=== PATIENT | male | born 1975 | race Caucasian/White ===

== ENCOUNTER 2022-12-06 13:07 | Emergency (ER) | payer MEDICARE, MEDICAID, SELFPAY ==
[2022-12-06 13:09] VITALS: BP 130/94; PULSE 95; RESP 16; TEMP 36.3; O2SAT 98; BMI 15.5
--- NOTE | 2022-12-06 13:22 | EX.ED.DYSGE1 ---
HPI History of Present Illness Chief Complaint: Mental Health Detail of Chief Complaint: Increased agitation Informant: family Onset/Context/Timing Onset: Days Context: Sudden Onset Timing: Intermittent Quality: Patient seen more, stomping feet Location: Not at a couple Current Severity: Gone Maximum Severity: Moderate Worsened by: Unknown Relieved by: Unknown Associated Symptoms Associated Symptoms: Increased urination Narrative Narrative: Patient is a 55-year-old male who lives with his mother who was guardian until her September of this year. Sister is in the process of obtaining guardianship. After mother's he was with her brother. He is no longer able to care for him since he has significant medical issues. Patient has history of autism and schizophrenia. Patient presently resides with sister who is obtaining guardianship through the court system. She states she will not have guardianship until January 01. She did show me the paperwork. He has gained 14 pounds since living with her. She is concerned because she stomping his feet more and has had increased pacing. He also has been urinating more. There is been no documented fever. Per sister he has not had a cough. There is no vomiting or diarrhea. She has not noted blood in his urine. Prior similar symptoms: No Recent Illness/Hospitalization: No PFSH PFS Medical History (Updated 12/06/22 @ 14:[address] Mookie Guo MD) Autism GERD (gastroesophageal reflux disease) Schizophrenia Home Medications cholecalciferol (vitamin D3) 25 mcg (1,000 unit) capsule 25 mcg PO DAILY 12/06/22 [History Last Taken Unknown] fluticasone propionate 50 mcg/actuation nasal spray,suspension intranasal 12/06/22 [History Last Taken Unknown] loratadine 10 mg chewable tablet (Claritin) 10 mg PO DAILY 12/06/22 [History Last Taken Unknown] olanzapine 5 mg disintegrating tablet 5 mg PO QHS #30 tabs 12/06/22 [Rx Last Taken Unknown] olanzapine 5 mg disintegrating tablet mg 12/06/22 [History Last Taken 12/06/22] omeprazole 40 mg capsule,delayed release 40 mg PO DAILY #30 caps 12/06/22 [Rx Last Taken Unknown] Allergy/AdvReac Type Severity Reaction Status Date / Time No Known Allergies Allergy Verified 12/06/22 13:09 Family History (Updated 12/06/22 @ 13:43 by Germania Brownlee) Mother Lung cancer Heart disease Father Lung cancer Social History (Updated 12/06/22 @ 13:[address] Mookie Guo MD) household members: family Smoking Status: Never smoker ROS ROS ED Review of Systems ROS Unobtainable: due to mental condition, due to mental status and other Details: What is documented in HPI narrative is all that I am able to obtain from the sister. EXAM Physical Exam Const Vital Signs: 12/06/22 13:09 Temperature 97.4 F L Temperature Source Temporal Pulse Rate 95 Respiratory Rate 16 Blood Pressure 130/94 H Blood Pressure Mean 106 Pulse Ox 98 Oxygen Delivery Method Room Air Positive well nourished and well developed; Negative for cachectic, contractures or unkempt General Appearance ED: well developed and NAD; Negative for unkempt, cachectic, contractures, cyanotic or diaphoretic Nutritional Appearance: Negative for cachectic HEENT Reports moist mucous membranes HEENT Narrative: There is an abrasion noted to bridge of the nose. Ears are normal. Nares patent. Poor dentition. Posterior pharynx remark. Eyes PERRL and EOMs intact bilaterally General Eye ED: Negative for pale conjunctiva or scleral icterus Neck no lymphadenopathy, supple and no JVD Neck Narrative: Trachea is midline. Chest Wall inspection of chest normal and palpation of chest normal Resp normal respiratory effort and clear to auscultation bilaterally Cardio regular rate, regular rhythm, S1 normal heart sound, S2 normal heart sound and no murmurs GI normal to inspection, nondistended, normoactive bowel sounds, non-tender, non-distended and no masses; Negative for hepatosplenomegaly Palpation: soft Extremity normal to inspection General Extremety ED: Negative for edema or tenderness General Extremity: Negative for edema Neuro Neuro Narrative: Patient says yeah to all questions asked. He is playing with small stuffed animals. Psych Psych Narrative: He is essentially nonverbal. Appearance: Negative for unkempt Skin no rashes or lesions noted and skin turgor normal General Skin Exam: Negative for jaundice MDM MDM MDM Narrative Medical decision making narrative: Case management was consulted. Will obtain blood work and urine to assess for metabolic or infectious cause of his increased agitation. History & Record Review Additional record(s) reviewed:: No prior records Lab Data Attestation: I reviewed the patient's lab results. Lab results narrative: Basic metabolic panel is unremarkable. Glucose is slight elevated 150 with an 2 and. UA is normal. CBC is unremarkable. Labs: Laboratory Results - last 24 hr 12/06/22 12/06/22 12/06/22 13:42 13:42 13:55 WBC Cancelled Corrected WBC Cancelled RBC Cancelled Hgb Cancelled Hct Cancelled MCV Cancelled MCH Cancelled MCHC Cancelled RDW Std Deviation Cancelled RDW Coeff of Dc Cancelled Plt Count Cancelled MPV Cancelled Immature Gran % (Auto) Cancelled Neut % (Auto) Cancelled Lymph % (Auto) Cancelled [place] % (Auto) Cancelled Eos % (Auto) Cancelled Baso % (Auto) Cancelled Absolute Neuts (auto) Cancelled Absolute Lymphs (auto) Cancelled Total Counted Cancelled Neutrophils % (Manual) Cancelled Band Neutrophils % Cancelled Lymphocytes % (Manual) Cancelled Monocytes % (Manual) Cancelled Eosinophils % (Manual) Cancelled Basophils % (Manual) Cancelled Metamyelocytes % Cancelled Myelocytes % Cancelled Promyelocytes % Cancelled Blast Cells % Cancelled Plasma Cell % (Manual) Cancelled Other Cells % Cancelled Nucleated RBC % Cancelled Nucleated RBCs/100 WBC Cancelled Differential Comment Cancelled Diff Path Review Cancelled Hypersegmented Neuts Cancelled Atypical Lymphocytes Cancelled Reactive Lymphocytes Cancelled Smudge Cells Cancelled Toxic Granulation Cancelled Toxic Vacuolation Cancelled Dohle Bodies Cancelled Sandro Rods Cancelled Platelet Estimate Cancelled Plt Morphology Comment Cancelled RBC Morphology Cancelled Cancelled Polychromasia Cancelled Hypochromasia Cancelled Poikilocytosis Cancelled Basophilic Stippling Cancelled Anisocytosis Cancelled Microcytosis Cancelled Macrocytosis Cancelled Spherocytes Cancelled Sickle Cells Cancelled Target Cells Cancelled Tear Drop Cells Cancelled Ovalocytes Cancelled Stomatocytes Cancelled [place] Bodies Cancelled Paulie Cells Cancelled Bite Cells Cancelled Crenated Cell Cancelled Acanthocytes (Spur) Cancelled Rouleaux Cancelled Schistocytes Cancelled Sodium 138 Potassium 4.5 Chloride 106 Carbon Dioxide 27.0 Anion Gap 5 BUN 13 Creatinine 0.87 Estim Creat Clear Calc 79.84 Est GFR (MDRD) Af Amer 121 Est GFR (MDRD) Non-Af 100 BUN/Creatinine Ratio 15.0 Glucose 115 H Calcium 9.3 Urine Color Yellow Urine Clarity Clear Urine pH 7.0 Ur Specific [place] 1.010 Urine Protein Negative Urine Glucose (UA) Normal Urine Ketones Negative Urine Occult Blood Negative Urine Nitrite Negative Urine Bilirubin Negative Urine Urobilinogen Normal Ur Leukocyte Esterase Negative Urine RBC 0 SEEN Urine WBC 0 SEEN Ur Squamous Epith Cells 0 SEEN Urine Bacteria 0 SEEN Urine Mucus 0 SEEN 12/06/22 14:05 WBC 6.7 Corrected WBC RBC 4.83 Hgb 13.6 Hct 43.6 MCV 90.3 MCH 28.2 MCHC 31.2 L RDW Std Deviation 45.0 H RDW Coeff of Dc 13.6 Plt Count 188 MPV 11.4 Immature Gran % (Auto) 0.100 Neut % (Auto) 66.5 Lymph % (Auto) 23.7 Motley % (Auto) 7.8 Eos % (Auto) 1.5 Baso % (Auto) 0.4 Absolute Neuts (auto) 4.4 Absolute Lymphs (auto) 1.58 Total Counted Neutrophils % (Manual) Band Neutrophils % Lymphocytes % (Manual) Monocytes % (Manual) Eosinophils % (Manual) Basophils % (Manual) Metamyelocytes % Myelocytes % Promyelocytes % Blast Cells % Plasma Cell % (Manual) Other Cells % Nucleated RBC % 0 Nucleated RBCs/100 WBC Differential Comment Diff Path Review Hypersegmented Neuts Atypical Lymphocytes Reactive Lymphocytes Smudge Cells Toxic Granulation Toxic Vacuolation Dohle Bodies Sandro Rods Platelet Estimate Plt Morphology Comment RBC Morphology Polychromasia Hypochromasia Poikilocytosis Basophilic Stippling Anisocytosis Microcytosis Macrocytosis Spherocytes Sickle Cells Target Cells Tear Drop Cells Ovalocytes Stomatocytes [place] Bodies [place] Cells Bite Cells Crenated Cell Acanthocytes (Spur) Rouleaux Schistocytes Sodium Potassium Chloride Carbon Dioxide Anion Gap BUN Creatinine Estim Creat Clear Calc Est GFR (MDRD) Af Amer Est GFR (MDRD) Non-Af BUN/Creatinine Ratio Glucose Calcium Urine Color Urine Clarity Urine pH Ur Specific [place] Urine Protein Urine Glucose (UA) Urine Ketones Urine Occult Blood Urine Nitrite Urine Bilirubin Urine Urobilinogen Ur Leukocyte Esterase Urine RBC Urine WBC Ur Squamous Epith Cells Urine Bacteria Urine Mucus Management Discussion w/another healthcare provider: household worker/Case management (Case management was informed there is no medical reason for admission. Sister was given information on resources. His prescriptions were refilled.) Discharge Plan Triage Chief Complaint: Mental Health ED Provider: Mookie Guo Dx/Rx/DC Orders Clinical Impression: Change in behavior, Prescription refill, Autism, Schizophrenia Instructions: ED Symptoms With Uncertain Cause Prescriptions: New olanzapine 5 mg tablet,disintegrating 5 mg PO QHS Qty: 30 1RF omeprazole 40 mg capsule,delayed release(DR/EC) 40 mg PO DAILY Qty: 30 1RF No Action fluticasone propionate 50 mcg/actuation spray,suspension INTRANASAL Patient Comments: USE 1 (ONE) SPRAY IN EACH NOSTRIL DAILY DIRECTED olanzapine 5 mg tablet,disintegrating Patient Comments: Take 1 tablet (5 mg) by mouth once every day. cholecalciferol (vitamin D3) 25 mcg (1,000 unit) capsule 25 mcg PO DAILY Claritin 10 mg tablet,chewable 10 mg PO DAILY Primary Care Provider: Carly Ramachandran Referrals: Counseling,Center [Group of Physicians] - 1-2 Weeks NOT,DEFINED [Non-Staff] - Disposition Disposition: Home, Self Care
--- NOTE | 2022-12-06 13:57 | NURSING ---
PER TANI, PURPLE TOP NEEDS REDRAWN
[2022-12-06 13:59] LABS: Bacteria 0 SEEN /hpf (None Seen); Mucous, Urine 0 SEEN /hpf (<or=2+); Red Blood Cells-Urine 0 SEEN /hpf (0-5); Squamous Epithelial Cells - UA 0 SEEN /hpf (0-5); White Blood Cells 0 SEEN /hpf (0-5)
[2022-12-06 14:02] LABS: Color, Urine Yellow (Yellow); Glucose, Dipstick Normal (Normal); Ketone-Dipstick Negative (Negative); Leukocyte Esterase-Dipstick Negative /ul (Negative); Nitrite-Dipstick Negative (Negative); Occult Blood-Urine Negative /ul (Negative); Protein-Dipstick Negative (Negative); Urine Bilirubin Dipstick Negative (Negative); Urine Clarity Clear (Clear); Urine Urobilinogen Normal (Normal)
[2022-12-06 14:05] LABS: Anion Gap 5 (5-15); BUN 13 mg/dL (7-18); Calcium,Total 9.3 mg/dL (8.5-10.1); Chloride 106 mmol/L (98-107); Creatinine, Serum 0.87 mg/dL (0.70-1.30); EST Glomerular Filtration Rate 100 mL/min (>60); Est Glom Filt Rate - Afr Amer 121 mL/min (>60); Estimated Creatinine Clearance 79.84 ml/min; Glucose 115 mg/dL (74-106); Potassium 4.5 mmol/L (3.5-5.1); Sodium Level 138 mmol/L (136-145)
[2022-12-06 14:14] LABS: Absolute Lymphocyte Count 1.58 X10^3/uL (0.83-4.51); Absolute Neutrophil Count 4.4 X10^3/uL (2.0-7.7); Basophil# 0.03 X10^3/uL; Basophil% 0.4 % (0-1); Eosinophils% 1.5 % (0-5); Hematocrit 43.6 % (40-54); Hemoglobin 13.6 g/dL (13.0-16.5); Lymphocyte # 1.58 X10^3/ul (0.83-4.51); Lymphocyte % 23.7 % (19-41); Mean Corp Hgb Conc 31.2 g/dL (32-36); Mean Corpuscular Hgb 28.2 pg (27.0-32.0); Mean Corpuscular Volume 90.3 fL (80-94); Mean Platelet Vol. 11.4 fl (6.2-12.0); Monocyte# 0.52 X10^3/uL; Monocyte% 7.8 % (0-10); NRBC Flagged by Analyzer 0 % (0-5); Neutrophil # 4.43 X10^3/uL (2.7-7.7); Neutrophil % 66.5 % (47-70); Platelet Count 188 K/mm3 (150-450); RBC Distribution Width CV 13.6 % (11.6-14.6); Red Blood Count 4.83 M/mm3 (4.6-6.2); White Blood Count 6.7 K/mm3 (4.4-11.0)
--- NOTE | 2022-12-06 14:35 | CM.ED ---
Social Work Referral Source: MD Guo Referral Reason: resources SW met with MD and reviewed presenting symptoms and concerns, SW to follow up with resources. SW met with patient and patient's sister and introduced herself and role as [facility] SW. Patient was seated on hospital bed, rocking and fidgeting with personal items beside him. Patient's sister reports patient is mainly non-verbal but frequently says yes. Patient's sister presented court documents as she is in the process of obtaining guardianship over the patient with the next court date being January 01. Patient has been living with patient's sister since the end of September due to patient's mother passing and patient's brother being unable to care for the patient due to illness. Patient's sister explained she is his half sister so they did not grow up together and are still getting to know each other. Patient's sister explained the patient has been displaying different behavior over the past 5 days, recalling the patient pacing and stomping more as well as moaning and cursing increasingly. Patient's sister is concerned because the patient's MH medication is running out and she has been unable to start MH services for him because the guardianship isn't official. Patient's sister reports she is working with [facility] Board of to start services and has been in contact with [facility] and [facility] for MH services, however, those services can not begin until guardianship is official. SW provided emotional support and reviewed local resources. SW discussed [employer] [facility] program as it focuses on services and supports needed for DD individuals. SW also provided a list of community counseling agencies and 10/12 crisis number. SW also encouraged patient's sister to contact [facility] Agency on Aging for a free assessment to determine if patient qualifies for their programs. Patient's sister was receptive towards information. Patient saying yes and moaning throughout conversation. DEBBIE reviewed resources offered with MD MINESH to assist with medication needs. Renée DONALDSON, LEIGH
[2022-12-06 14:41] VITALS: RESP 16
== END 2022-12-06 15:20 | disposition home or self-care (01) ==
PROVIDERS: Emergency Provider Emergency Medicine; PCP Nurse Practitioner Family; Visit Provider Emergency Medicine
DX: F91.9 Conduct disorder, unspecified (principal); F20.9 Schizophrenia, unspecified; F84.0 Autistic disorder; Z76.0 Encounter for issue of repeat prescription; K21.9 Gastro-esophageal reflux disease without esophagitis
CPT/HCPCS: 80048; 81001; 85025; 99282; A4216

== ENCOUNTER 2022-12-23 13:20 | Emergency (ER) | payer MEDICARE, MEDICAID, SELFPAY ==
[2022-12-23 13:21] VITALS: PULSE 84; RESP 18; TEMP 36.2; O2SAT 100; BMI 16.2
[2022-12-23 13:23] VITALS: BP 146/99
--- NOTE | 2022-12-23 13:37 | ED.VIS.GI ---
HPI <ANTHONY Ocampo - Last Filed: 12/23/22 17:47> HPI - GI History of Present Illness Chief Complaint: Abd Pain Narrative Narrative: 47-year-old male with PMH of schizophrenia, autism with limited speech presents with abdominal pain. He lives with his sister who is his caregiver. This morning around 7 AM he said his abdomen hurt. She gave him antacids and aspirin, Nexium and his applesauce which she ate. Has had no vomiting, no fever, and is having normal urination and daily bowel movements. No abdominal surgical history. PFSH <ANTHONY Ocampo - Last Filed: 12/23/22 17:47> PFSH Medical History (Updated 12/23/22 @ 16:59 by ANTHONY Ocampo) Autism GERD (gastroesophageal reflux disease) Schizophrenia Home Medications cholecalciferol (vitamin D3) 25 mcg (1,000 unit) capsule 25 mcg PO DAILY 12/06/22 [History Last Taken Unknown] fluticasone propionate 50 mcg/actuation nasal spray,suspension intranasal 12/06/22 [History Last Taken Unknown] loratadine 10 mg chewable tablet (Claritin) 10 mg PO DAILY 12/06/22 [History Last Taken Unknown] olanzapine 5 mg disintegrating tablet 5 mg PO QHS #30 tabs 12/06/22 [Rx Last Taken Unknown] olanzapine 5 mg disintegrating tablet mg 12/06/22 [History Last Taken 12/06/22] omeprazole 40 mg capsule,delayed release 40 mg PO DAILY #30 caps 12/06/22 [Rx Last Taken Unknown] Allergy/AdvReac Type Severity Reaction Status Date / Time No Known Allergies Allergy Verified 12/23/22 13:23 Family History (Updated 12/06/22 @ 13:43 by Germania Brownlee) Mother Lung cancer Heart disease Father Lung cancer Social History (Updated 12/06/22 @ 13:[address] Mookie Guo MD) household members: family Smoking Status: Never smoker ROS <ANTHONY Ocampo - Last Filed: 12/23/22 17:47> ROS ED ROS Narrative Limited secondary to autism. No fever, vomiting, diarrhea. EXAM <ANTHONY Ocampo - Last Filed: 12/23/22 17:47> Physical Exam Narrative Exam Narrative: CONST: Patient sitting in no acute distress. EYES: Normal inspection. ENT: Normal inspection, moist mucous membranes. NECK: Normal inspection. RESP: No respiratory distress, CTAB. CVS: Regular rate and rhythm, no murmur, no gallop. ABD: Soft and nontender, no guarding or rebound, nondistended. Normal bowel sounds x4. SKIN: Color normal, no rash, warm, dry, intact. EXTREMITIES: Normal appearance, no pedal edema. NEURO: Autistic with very limited speech. Says yes or no. PSYCH: Normal affect. Const Vital Signs: 12/23/22 13:21 12/23/22 13:23 12/23/22 16:00 Temperature 97.1 F L Temperature Source Temporal Pulse Rate 84 65 Respiratory Rate 18 16 Blood Pressure 146/99 H 123/85 H Blood Pressure Mean 114 97 Pulse Ox 100 98 Oxygen Delivery Method Room Air Room Air <Dr. Jordi Russell DO - Last Filed: 12/24/22 16:57> Physical Exam Const Vital Signs: 12/23/22 13:21 12/23/22 13:23 12/23/22 16:00 Temperature 97.1 F L Temperature Source Temporal Pulse Rate 84 65 Respiratory Rate 18 16 Blood Pressure 146/99 H 123/85 H Blood Pressure Mean 114 97 Pulse Ox 100 98 Oxygen Delivery Method Room Air Room Air MDM <ANTHONY Ocampo - Last Filed: 12/23/22 17:47> [facility] Narrative Medical decision making narrative: History gathered from: Patient's sister Patient is autistic with limited speech. He told his sister this morning her abdominal pain. He had normal p.o. intake bladder and bowel movements. He appears well and nontoxic. Vital signs are within normal limits. His abdomen is soft with no visible reaction with palpation. CBC is WNL. CMP remarkable for AST of 69, ALT 154, alk phos 119. Normal total bilirubin. Lipase 27. Due to the transaminitis a right upper quadrant ultrasound was ordered. RUQ ultrasound shows nonspecific dilation of the common bile duct of 6.7 mm. In the setting of pain and transaminitis and CBD dilation I will discuss with the general surgeon. Dr. Kowalski states his gallbladder looks normal and this isn't a significant amount of CBD dilation but recommended a CT scan to better assess his liver and biliary tree and if normal he can be discharged home to follow-up with his PCP. CT shows no acute process. I discussed symptomatic care at home with his sister and that he should follow-up with his PCP for further evaluation of transaminitis. I did look up olanzapine and elevated LFTs as a common side effect. Since with no prior labs for comparison I am not sure if this is new or if it is even connected with his current abdominal pain. I discussed return precautions and he was discharged in stable condition. Differential: Cholecystitis, appendicitis, constipation, hepatitis, among others Consults: General surgery Lab Data Attestation: I reviewed the patient's lab results. Labs: Laboratory Results - last 24 hr 12/23/22 13:43 WBC 7.6 RBC 4.95 Hgb 13.9 Hct 44.8 MCV 90.5 MCH 28.1 MCHC 31.0 L RDW Std Deviation 46.4 H RDW Coeff of Dc 13.9 Plt Count 200 MPV 11.5 Immature Gran % (Auto) 0.500 Neut % (Auto) 53.3 Lymph % (Auto) 28.7 [place] % (Auto) 8.0 Eos % (Auto) 8.4 H Baso % (Auto) 1.1 H Absolute Neuts (auto) 4.0 Absolute Lymphs (auto) 2.18 Nucleated RBC % 0 Sodium 138 Potassium 4.5 Chloride 106 Carbon Dioxide 27.0 Anion Gap 5 BUN 17 Creatinine 0.79 Estim Creat Clear Calc 92.28 Est GFR (MDRD) Af Amer 135 Est GFR (MDRD) Non-Af 111 BUN/Creatinine Ratio 21.4 H Glucose 94 Calcium 9.0 Total Bilirubin 0.50 AST 69 H ALT 154 H Alkaline Phosphatase 119 H Total Protein 7.7 Albumin 3.9 Globulin 3.8 Albumin/Globulin Ratio 1.0 Lipase 27 Radiography Diagnostic Testing: Clinical Impression(s) from Imaging Studies Gallbladder Ultrasound 12/23/22 14:12 IMPRESSION: No acute findings. Nonspecific dilation of the common bile duct. Electronically Signed: Blaise Marquez MD at 15:53 EDT , Abdomen/Pelvis CT 12/23/22 16:15 IMPRESSION: (NOT LISTED IN ORDER OF SIGNIFICANCE) There are no acute findings. Simple left renal cysts. No follow up required. Other findings as above. Electronically Signed: Blaise Marquez MD at 16:55 EDT , <Dr. Jordi Russell, DO - Last Filed: 12/24/22 16:57> MDM MDM Narrative Medical decision making narrative: History gathered from: Patient's sister Patient is autistic with limited speech. He told his sister this morning her abdominal pain. He had normal p.o. intake bladder and bowel movements. He appears well and nontoxic. Vital signs are within normal limits. His abdomen is soft with no visible reaction with palpation. CBC is WNL. CMP remarkable for AST of 69, ALT 154, alk phos 119. Normal total bilirubin. Lipase 27. Due to the transaminitis a right upper quadrant ultrasound was ordered. RUQ ultrasound shows nonspecific dilation of the common bile duct of 6.7 mm. In the setting of pain and transaminitis and CBD dilation I will discuss with the general surgeon. Dr. Kowalski states his gallbladder looks normal and this isn't a significant amount of CBD dilation but recommended a CT scan to better assess his liver and biliary tree and if normal he can be discharged home to follow-up with his PCP. CT shows no acute process. I discussed symptomatic care at home with his sister and that he should follow-up with his PCP for further evaluation of transaminitis. I did look up olanzapine and elevated LFTs as a common side effect. Since with no prior labs for comparison I am not sure if this is new or if it is even connected with his current abdominal pain. I discussed return precautions and he was discharged in stable condition. Differential: Cholecystitis, appendicitis, constipation, hepatitis, among others Consults: General surgery This patient was seen with a PA/[employer] CONT[employer] SOCIAL MEDIA MANAGER Individually assessed they patient including history and physical. I have reviewed everything on the chart that is available and agree with the documentation provided by the PA/WEB CONT[employer] SOCIAL MEDIA MANAGER including discussion about the assessment, treatment plan, discussion, and return precautions. Patient presenting with abdominal pain. Appears to be in the upper quadrant and epigastric region. Is difficult to examine him because of his autism and he is a poor informant. His family does think that he has a lot of pain however. He was given morphine and Zofran. Right upper quadrant ultrasound showed a dilated common bile duct at 6.7 mm which was discussed with Dr. Kowalski who recommended getting a CT scan and if this was normal she did not think that the common bile duct would be a problem and if she did not think that he needed to be admitted. Return precautions were discussed at length. Impression: 1. Abdominal pain 2. Transaminitis 3. Dilated common bile duct Lab Data Labs: Laboratory Results - last 24 hr 12/23/22 13:43 WBC 7.6 RBC 4.95 Hgb 13.9 Hct 44.8 MCV 90.5 MCH 28.1 MCHC 31.0 L RDW Std Deviation 46.4 H RDW Coeff of Dc 13.9 Plt Count 200 MPV 11.5 Immature Gran % (Auto) 0.500 Neut % (Auto) 53.3 Lymph % (Auto) 28.7 [place] % (Auto) 8.0 Eos % (Auto) 8.4 H Baso % (Auto) 1.1 H Absolute Neuts (auto) 4.0 Absolute Lymphs (auto) 2.18 Nucleated RBC % 0 Sodium 138 Potassium 4.5 Chloride 106 Carbon Dioxide 27.0 Anion Gap 5 BUN 17 Creatinine 0.79 Estim Creat Clear Calc 92.28 Est GFR (MDRD) Af Amer 135 Est GFR (MDRD) Non-Af 111 BUN/Creatinine Ratio 21.4 H Glucose 94 Calcium 9.0 Total Bilirubin 0.50 AST 69 H ALT 154 H Alkaline Phosphatase 119 H Total Protein 7.7 Albumin 3.9 Globulin 3.8 Albumin/Globulin Ratio 1.0 Lipase 27 Radiography Diagnostic Testing: Clinical Impression(s) from Imaging Studies Gallbladder Ultrasound 12/23/22 14:12 IMPRESSION: No acute findings. Nonspecific dilation of the common bile duct. Electronically Signed: Blaise Marquez MD at 15:53 EDT , Abdomen/Pelvis CT 12/23/22 16:15 IMPRESSION: (NOT LISTED IN ORDER OF SIGNIFICANCE) There are no acute findings. Simple left renal cysts. No follow up required. Other findings as above. Electronically Signed: Blaise Marquez MD at 16:55 EDT Reading Location ID and State: [facility] / [place] , Service support , Discharge Plan Triage Chief Complaint: Abd Pain ED Midlevel Provider: Liudmila Mueller ED Provider: Jordi Russell Dx/Rx/DC Orders Clinical Impression: Transaminitis, Abdominal pain Instructions: Abdominal Pain Prescriptions: No Action fluticasone propionate 50 mcg/actuation spray,suspension INTRANASAL Patient Comments: USE 1 (ONE) SPRAY IN EACH NOSTRIL DAILY DIRECTED olanzapine 5 mg tablet,disintegrating Patient Comments: Take 1 tablet (5 mg) by mouth once every day. cholecalciferol (vitamin D3) 25 mcg (1,000 unit) capsule 25 mcg PO DAILY Claritin 10 mg tablet,chewable 10 mg PO DAILY olanzapine 5 mg tablet,disintegrating 5 mg PO QHS Qty: 30 1RF omeprazole 40 mg capsule,delayed release(DR/EC) 40 mg PO DAILY Qty: 30 1RF Primary Care Provider: Carly Ramachandran Referrals: Carly Ramachandran, [employer] SOCIAL MEDIA MANAGER-C [Primary Care Provider] - Activity Restrictions/Additional Instructions: His blood work showed high liver enzymes. His CT scan looked normal and there is no evidence of gallbladder infection. 1 possible side effect of olanzapine as elevated liver enzymes but there are many other possible causes so he needs to see his primary care doctor this week for reevaluation. Disposition Disposition: Home, Self Care Discharge Date/Time: 12/23/22 17:07
[2022-12-23 13:51] LABS: Absolute Lymphocyte Count 2.18 X10^3/uL (0.83-4.51); Basophil# 0.08 X10^3/uL; Basophil% 1.1 % (0-1); Eosinophil# 0.64 X10^3/uL; Eosinophils% 8.4 % (0-5); Hematocrit 44.8 % (40-54); Hemoglobin 13.9 g/dL (13.0-16.5); Lymphocyte # 2.18 X10^3/ul (0.83-4.51); Lymphocyte % 28.7 % (19-41); Mean Corpuscular Hgb 28.1 pg (27.0-32.0); Mean Corpuscular Volume 90.5 fL (80-94); Mean Platelet Vol. 11.5 fl (6.2-12.0); Monocyte# 0.61 X10^3/uL; NRBC Flagged by Analyzer 0 % (0-5); Neutrophil # 4.04 X10^3/uL (2.7-7.7); Neutrophil % 53.3 % (47-70); Platelet Count 200 K/mm3 (150-450); RBC Distribution Width CV 13.9 % (11.6-14.6); RBC Distribution Width SD 46.4 fl (35.1-43.9); Red Blood Count 4.95 M/mm3 (4.6-6.2); White Blood Count 7.6 K/mm3 (4.4-11.0)
[2022-12-23 14:05] LABS: AST(SGOT) 69 U/L (15-37); Alanine Aminotransfer ALT/SGPT 154 U/L (16-61); Albumin, Serum 3.9 g/dL (3.2-5.0); Alkaline Phosphatase 119 U/L (45-117); Anion Gap 5 (5-15); BUN 17 mg/dL (7-18); BUN/Creat Ratio 21.4 RATIO (10-20); Chloride 106 mmol/L (98-107); Creatinine, Serum 0.79 mg/dL (0.70-1.30); EST Glomerular Filtration Rate 111 mL/min (>60); Est Glom Filt Rate - Afr Amer 135 mL/min (>60); Estimated Creatinine Clearance 92.28 ml/min; Globulin 3.8 g/dL (2.2-4.2); Glucose 94 mg/dL (74-106); Potassium 4.5 mmol/L (3.5-5.1); Protein, Total 7.7 g/dL (6.4-8.2); Sodium Level 138 mmol/L (136-145)
--- NOTE | 2022-12-23 14:12 | US_ITS ---
STUDY: ABDOMINAL ULTRASOUND - RIGHT UPPER QUADRANT REASON FOR VISIT: Male, 47 years old. ABDOMEN PAIN abdominal pain TECHNIQUE: Ultrasound evaluation of the right upper quadrant was performed with real-time and static south-scale imaging. TECHNICAL QUALITY: Adequate. COMPARISON: None FINDINGS: Liver: There is normal echogenicity of the liver. The bile ducts are within normal limits. There is hepatic color flow. The direction of portal flow is hepatopetal. There is no demonstrated mass lesion. Gallbladder: Normal distended gallbladder. The gallbladder wall measures 1.7 mm. There is a negative sonographic James''s sign. There is no pericholecystic fluid. There are no gallstones. Common Bile Duct (C.B.D.): The common bile duct measures ( in mm): 6.7 Pancreas: Normal size of the head, body of the pancreas. There is normal echogenicity of the pancreas. There is no demonstrated pancreatic mass or cyst. Right Kidney: Normal size of the right kidney. The right kidney measures 10.9 cm. . Normal renal cortex. There is no demonstrated renal mass or cyst. There is no right hydronephrosis. Aorta: It is not visualized. There is too much overlying bowel gas. . US/Gallbladder IMPRESSION: No acute findings. Nonspecific dilation of the common bile duct. Electronically Signed: Blaise Marquez MD at 15:53 EDT ,
[2022-12-23] MEDS: Morphine 4 MG/ML Syringe IV (14:22)
[2022-12-23] MEDS: Ondansetron 4 MG/2 ML Vial IV (14:22)
[2022-12-23 14:32] LABS: Lipase 27 U/L (13-75)
[2022-12-23 16:00] VITALS: BP 123/85; PULSE 65; RESP 16; O2SAT 98
--- NOTE | 2022-12-23 16:15 | CT_ITS ---
STUDY: CT Abdomen And Pelvis W/ Contrast Injection 12/23/2022 4:53 PM REASON FOR EXAM: Male, 47 years old. ABDOMINAL PAIN upper abdominal pain TECHNIQUE: Transaxial images were obtained without oral contrast, and IV 100mL Isovue-370 intravenous contrast. Individualized dose optimization techniques were used for this CT. COMPARISON: None FINDINGS: The visualized lung bases are unremarkable. The visualized portions of the heart are within normal limits. Unremarkable liver. Unremarkable gallbladder and extrahepatic biliary system. Unremarkable spleen. Unremarkable pancreas. Unremarkable bilateral adrenal glands. No acute findings of the right kidney. There is a 58 mm hypodensities in the left kidney. These are consistent for cysts. No follow up required. Unremarkable visualized stomach. Unremarkable small intestine. Unremarkable colon. The appendix is visualized and appears unremarkable. There are no acute findings of the abdominal aorta. Unremarkable inferior vena cava. Subcentimeter mesenteric lymph nodes. Unremarkable urinary bladder. Unremarkable abdominal wall. Unremarkable osseous structures. CT/Abdomen/Pelvis W IV Cont ONLY IMPRESSION: (NOT LISTED IN ORDER OF SIGNIFICANCE) There are no acute findings. Simple left renal cysts. No follow up required. Other findings as above. Electronically Signed: Blaise Marquez MD at 16:55 EDT ,
== END 2022-12-23 17:07 | disposition home or self-care (01) ==
PROVIDERS: Physician Assistant; Emergency Provider Student in an Organized Health Care Education/Training Program; PCP Nurse Practitioner Family; Visit Provider Student in an Organized Health Care Education/Training Program
DX: R10.9 Unspecified abdominal pain (principal); F20.9 Schizophrenia, unspecified; F84.0 Autistic disorder; R74.01 Elevation of levels of liver transaminase levels; K83.8 Other specified diseases of biliary tract; K21.9 Gastro-esophageal reflux disease without esophagitis
CPT/HCPCS: 74177; 76705; 80053; 83690; 85025; 96374; 96375; 99282; Q9967; A4216; J2405

== ENCOUNTER 2023-01-11 13:09 | Emergency (ER) | payer MEDICARE, MEDICAID, SELFPAY ==
[2023-01-11 13:11] VITALS: BP 127/80; PULSE 100; RESP 18; TEMP 36.1; O2SAT 97; BMI 15.7
[2023-01-11 13:52] VITALS: TEMP 37.4
--- NOTE | 2023-01-11 14:25 | EDS_ITS ---
HPI History of Present Illness Chief Complaint: Fever Informant: patient and legal guardian (sister) Onset/Context/Timing Onset: Yesterday Context: Gradual Onset Narrative Narrative: Autistic nonverbal patient had a fever up to 104 according to infrared thermometer sister used at home, she cares for him and is his guardian, today started coughing. Other than that, just decreased oral intake and decreased activity. He does not communicate so she does not know about any other symptoms except for some mild diarrhea that she is on the toilet no blood. No melena. No known sick contacts that she knows of. No recent travel out of the region. [facility] Medical History Autism GERD (gastroesophageal reflux disease) Schizophrenia Home Medications cholecalciferol (vitamin D3) 25 mcg (1,000 unit) capsule 25 mcg PO DAILY 12/06/22 [History Last Taken Unknown] fluticasone propionate 50 mcg/actuation nasal spray,suspension intranasal 12/06/22 [History Last Taken Unknown] loratadine 10 mg chewable tablet (Claritin) 10 mg PO DAILY 12/06/22 [History Last Taken Unknown] olanzapine 5 mg disintegrating tablet 5 mg PO QHS #30 tabs 12/06/22 [Rx Last Taken Unknown] olanzapine 5 mg disintegrating tablet mg 12/06/22 [History Last Taken 12/06/22] omeprazole 40 mg capsule,delayed release 40 mg PO DAILY #30 caps 12/06/22 [Rx Last Taken Unknown] Allergy/AdvReac Type Severity Reaction Status Date / Time No Known Allergies Allergy Verified 12/23/22 13:23 Family History (Updated 12/06/22 @ 13:43 by Germania Brownlee) Mother Lung cancer Heart disease Father Lung cancer Social History household members: family Smoking Status: Never smoker ROS ROS ED Review of Systems ROS Unobtainable: due to mental condition Constitutional Constitutional ED: Reports fever(s) and malaise Respiratory/Chest Respiratory/Chest: Reports cough; Denies dyspnea Gastrointestinal Gastrointestinal: Reports diarrhea; Denies vomiting EXAM Physical Exam Const Vital Signs: 01/11/23 13:11 01/11/23 13:52 01/11/23 14:00 Temperature 96.9 F L 99.4 F H Temperature Source Temporal Oral Pulse Rate 100 Respiratory Rate 18 Respiratory Effort Normal Non-Labored Respiratory Pattern Normal Blood Pressure 127/80 H Blood Pressure Mean 95 Pulse Ox 97 Oxygen Delivery Method Room Air Positive well nourished and well developed General Appearance ED: well developed and NAD HEENT Reports TM's clear and moist mucous membranes normocephalic and atraumatic Tympanic Membrane ED: Yes TM's clear Eyes PERRL and EOMs intact bilaterally Neck full ROM, no lymphadenopathy and supple Chest Wall inspection of chest normal and palpation of chest normal Resp normal respiratory effort and clear to auscultation bilaterally Cardio regular rate, regular rhythm and no murmurs Rate: Negative for tachycardic GI non-tender and non-distended Auscultation: normoactive bowel sounds Palpation: soft Back/Spine no CVA tenderness General Back: other FROM Extremity normal to inspection General Extremety ED: Negative for edema, pulses abnormal or tenderness General Extremity: Negative for edema or pulses abnormal Neuro CN's II-XII intact bilaterally and no sensory deficits noted Neuro Narrative: At baseline mental status. Briefly grunts answers to questions from sister Sensorium / Orientation: awake and alert Motor Exam: strength 5/5 throughout Skin no rashes or lesions noted and no wounds MDM MDM MDM Narrative Medical decision making narrative: Chest x-ray 2 views of my interpretation negative for pneumonia or other acute cardiopulmonary process, radiology in agreement. We were also going to get urine, but his COVID swab returned positive. For that reason I no longer think we require urine. Vital signs are normal. Low-grade temperature. Patient clinically and hemodynamically stable. We gave him some fluids he is able to drink them without difficulty. Encouraged sister to push fluids, supportive care advised he does not have any indication for antivirals at this time. Radiography Diagnostic Testing: Clinical Impression(s) from Imaging Studies Chest X-Ray 01/11/23 15:00 IMPRESSION: No evidence of acute cardiopulmonary process. Electronically Signed: Melo Zacarias DO at 15:36 EDT , Discharge Plan Triage Chief Complaint: Fever ED Provider: Kong Maddox Dx/Rx/DC Orders Clinical Impression: COVID-19 Instructions: Coronavirus Disease 2019 (COVID-19): Caring for Yourself or Others Prescriptions: No Action fluticasone propionate 50 mcg/actuation spray,suspension INTRANASAL Patient Comments: USE 1 (ONE) SPRAY IN EACH NOSTRIL DAILY DIRECTED olanzapine 5 mg tablet,disintegrating Patient Comments: Take 1 tablet (5 mg) by mouth once every day. cholecalciferol (vitamin D3) 25 mcg (1,000 unit) capsule 25 mcg PO DAILY Claritin 10 mg tablet,chewable 10 mg PO DAILY olanzapine 5 mg tablet,disintegrating 5 mg PO QHS Qty: 30 1RF omeprazole 40 mg capsule,delayed release(DR/EC) 40 mg PO DAILY Qty: 30 1RF Primary Care Provider: Carly Ramachandran Referrals: Carly Ramachandran, [employer] [Primary Care Provider] - As Needed Activity Restrictions/Additional Instructions: Try to get a home portable pulse oximeter and closely watch your oxygen levels periodically. If you stay below 90% for more than a minute or so, and/or you are feeling like your breathing is getting worse, return to the emergency department for further evaluation. Currently, CDC recommendations state that you should stay home through day 5 of symptoms, then as long as symptoms are improving, if you need to go to work or somewhere else you may for days 6-10 as long as you are wearing a mask the entire time. If you are feeling better after day 10 you may resume life is normal. Disposition Disposition: Home, Self Care
[2023-01-11] MEDS: Ibuprofen 600 MG Tablet PO (14:40)
--- NOTE | 2023-01-11 15:00 | RAD_ITS ---
STUDY: X-RAY CHEST REASON FOR EXAM: Male, 47 years old. cough fever TECHNIQUE: PA and lateral views of the chest. COMPARISON: None. FINDINGS: The lungs are clear and expanded. Mild chronic interstitial markings are noted. Bilateral apical scarring is present. There is no demonstrated pleural abnormality. Normal size heart. Normal mediastinum and kaleb. Normal visualized pulmonary arteries. Normal visualized aortic arch and descending thoracic aorta. Normal visualized thoracic spine. Normal visualized ribs, clavicles, and shoulders. There is no demonstrated abnormality of the visualized soft tissue structures of the upper abdomen. RAD/Chest PA and Lateral IMPRESSION: No evidence of acute cardiopulmonary process. Electronically Signed: Melo Zacarias DO at 15:36 EDT ,
[2023-01-11 16:02] VITALS: BP 118/74; PULSE 72; RESP 18; O2SAT 97
== END 2023-01-11 16:03 | disposition home or self-care (01) ==
PROVIDERS: Emergency Provider Emergency Medicine; PCP Nurse Practitioner Family; Visit Provider Emergency Medicine
DX: U07.1 COVID-19 (principal); F20.9 Schizophrenia, unspecified; F84.0 Autistic disorder; K21.9 Gastro-esophageal reflux disease without esophagitis
CPT/HCPCS: 71046; 87428; 99282

== ENCOUNTER 2023-09-29 21:07 | Emergency (ER) | payer MEDICARE, MEDICAID, SELFPAY ==
[2023-09-29 21:08] VITALS: BP 125/90; PULSE 86; RESP 18; TEMP 36.2; O2SAT 95; BMI 18.6
--- NOTE | 2023-09-29 22:08 | CT_ITS ---
EXAM: CT ABDOMEN AND PELVIS WITHOUT INTRAVENOUS CONTRAST CLINICAL INDICATION: abd distension, vomiting TECHNIQUE: Helically acquired images were obtained of the abdomen and pelvis without intravenous contrast. CTDIvol = ( 6.71 ) mGy, DLP = ( 353.48 ) mGycm This CT exam was performed using one or more of the following dose reduction techniques: automated exposure control, adjustment of the mA and/or kV according to patient size, and/or use of iterative reconstruction technique. COMPARISON: No relevant prior studies available. FINDINGS: LOWER THORAX: Unremarkable. Lung bases are clear. No cardiomegaly. No significant pericardial effusion. ABDOMEN: LIVER: Unremarkable. Homogeneous. GALLBLADDER AND BILE DUCTS: Unremarkable. No calcified gallstones. No gallbladder distention or wall edema. No intra- or extrahepatic biliary ductal dilation. PANCREAS: Unremarkable. No focal cystic mass. SPLEEN: Unremarkable. Normal size without focal cystic or solid mass. ADRENALS: Unremarkable. No nodules. KIDNEYS AND URETERS: 5.7 cm exophytic cyst at the lower pole of the left kidney. No other renal abnormalities. No hydronephrosis. STOMACH AND BOWEL: Fluid in the colon without wall thickening can be seen with diarrhea. No bowel obstruction. PELVIS: APPENDIX: No evidence of acute appendicitis. BLADDER: Unremarkable. REPRODUCTIVE: Unremarkable as visualized. No mass. ABDOMEN and PELVIS: INTRAPERITONEAL SPACE: See below. BONES/JOINTS: Unremarkable. No suspicious lytic or blastic abnormality. SOFT TISSUES: Unremarkable. No discrete abdominal or pelvic wall hernia. VASCULATURE: Unremarkable. Abdominal aorta is non-dilated. LYMPH NODES: Mild central mesenteric stranding with associated small lymph nodes suggest mesenteritis or panniculitis. CT/Abdomen/Pelvis without Cont IMPRESSION: 1. Mild central mesenteric stranding with associated small lymph nodes suggest mesenteritis or panniculitis. 2. Benign left renal cysts. 3. Fluid in the colon without wall thickening can be seen with diarrhea. Electronically Signed: Bimal Choi MD at 0:02 EDT ,
--- NOTE | 2023-09-29 22:09 | ED.VIS.GI ---
HPI HPI - GI History of Present Illness Chief Complaint: Nausea/Vomiting/Diarrhea Informant: patient and legal guardian Narrative Narrative: 48-year-old male with history of autism and schizophrenia who has had vomiting and diarrhea for the past 3 days, today it has been all extensive loose/watery nonmelanotic nonbloody diarrhea. No vomiting but he will not drink. Guardian is his half-sister, she states he looks pale, he will not stop touching his genitals, even keep his hands out of his diarrhea, he has had 8 baths today, and she cannot get him to drink and does not know what else to do. No known sick contacts. No travel out of the area. No recent antibiotics for anything. [facility] Medical History Autism GERD (gastroesophageal reflux disease) Schizophrenia Home Medications cholecalciferol (vitamin D3) 25 mcg (1,000 unit) capsule 25 mcg PO DAILY 12/06/22 [History Last Taken Unknown] fluticasone propionate 50 mcg/actuation nasal spray,suspension intranasal 12/06/22 [History Last Taken Unknown] loratadine 10 mg chewable tablet (Claritin) 10 mg PO DAILY 12/06/22 [History Last Taken Unknown] olanzapine 5 mg disintegrating tablet 5 mg PO QHS #30 tabs 12/06/22 [Rx Last Taken Unknown] olanzapine 5 mg disintegrating tablet mg 12/06/22 [History Last Taken 12/06/22] omeprazole 40 mg capsule,delayed release 40 mg PO DAILY #30 caps 12/06/22 [Rx Last Taken Unknown] pantoprazole 40 mg tablet,delayed release 40 mg PO DAILY 09/29/23 [History Last Taken Unknown] ondansetron 8 mg disintegrating tablet 8 mg PO Q8H PRN nausea and vomiting #12 tabs 09/30/23 [Rx Last Taken Unknown] Allergy/AdvReac Type Severity Reaction Status Date / Time No Known Allergies Allergy Verified 09/29/23 21:08 Family History (Updated 12/06/22 @ 13:43 by Germania Brownlee) Mother Lung cancer Heart disease Father Lung cancer Social History household members: family Smoking Status: Never smoker ROS ROS ED Review of Systems ROS Unobtainable: due to mental status and other Details: Patient only responds yeah to every question for guardian and myself Constitutional Constitutional ED: Reports malaise; Denies chills or fever(s) Gastrointestinal Gastrointestinal: Reports diarrhea and vomiting EXAM Physical Exam Const Vital Signs: 09/29/23 21:08 09/29/23 23:08 Temperature 97.2 F L Temperature Source Temporal Pulse Rate 86 70 Respiratory Rate 18 16 Blood Pressure 125/90 H 121/74 H Blood Pressure Mean 101 89 Pulse Ox 95 97 Oxygen Delivery Method Room Air Room Air Positive well nourished and well developed General Appearance ED: well developed and NAD HEENT Reports moist mucous membranes normocephalic and atraumatic Eyes PERRL and EOMs intact bilaterally Neck full ROM and supple Resp normal respiratory effort and clear to auscultation bilaterally Cardio regular rate, regular rhythm and no murmurs GI GI Narrative: No significant objective tenderness, no palpable mass Inspection: abdominal distention Auscultation: hypoactive bowel sounds Palpation: soft Back/Spine General Back: other FROM Extremity normal to inspection General Extremety ED: Negative for edema, pulses abnormal or tenderness General Extremity: Negative for edema or pulses abnormal Neuro CN's II-XII intact bilaterally and no sensory deficits noted Neuro Narrative: At baseline mental status Sensorium / Orientation: awake and alert Motor Exam: strength 5/5 throughout Skin no rashes or lesions noted and no wounds MDM MDM MDM Narrative Medical decision making narrative: Labs obtained while we treated the patient with IV fluids, Zofran, actually perked up and looked a lot better and did well, tolerating oral fluids. I performed a CT scan given his history of autism and schizophrenia and difficulty getting history out of. I reviewed the images and report which I agree with, basically is consistent with gastroenteritis, also showing some mesenteritis but no signs of ischemic bowel. His labs are very reassuring looking. There is no leukocytosis or significant dehydration he has some mild hypokalemia but not to the point where I think he needs to stay for replacement. I offered admission, the sister is declining and states she is comfortable taking him home. I think giving him antidiarrheals is reasonable and I am giving him a prescription for Zofran to use as needed. She is comfortable with that plan we discussed reasons to return. Lab Data Attestation: I reviewed the patient's lab results. Labs: Laboratory Results - last 24 hr 09/29/23 22:21 WBC 4.7 RBC 4.90 Hgb 13.9 Hct 43.3 MCV 88.4 MCH 28.4 MCHC 32.1 RDW Std Deviation 43.0 RDW Coeff of Dc 13.2 Plt Count 206 MPV 10.7 Immature Gran % (Auto) 0.400 Neut % (Auto) 52.8 Lymph % (Auto) 21.9 [place] % (Auto) 16.5 H Eos % (Auto) 7.8 H Baso % (Auto) 0.6 Absolute Neuts (auto) 2.5 Absolute Lymphs (auto) 1.04 Nucleated RBC % 0 Sodium 137 Potassium 3.3 L Chloride 103 Carbon Dioxide 27.0 Anion Gap 7 BUN 13 Creatinine 0.83 Estim Creat Clear Calc 100.02 Est GFR (MDRD) Af Amer 128 Est GFR (MDRD) Non-Af 106 BUN/Creatinine Ratio 15.7 Glucose 98 Calcium 8.5 Total Bilirubin 0.50 AST 29 ALT 66 H Alkaline Phosphatase 105 Total Protein 7.0 Albumin 3.3 Globulin 3.7 Albumin/Globulin Ratio 0.9 Lipase 16 Radiography Diagnostic Testing: Clinical Impression(s) from Imaging Studies Abdomen/Pelvis CT 09/29/23 22:08 IMPRESSION: 1. Mild central mesenteric stranding with associated small lymph nodes suggest mesenteritis or panniculitis. 2. Benign left renal cysts. 3. Fluid in the colon without wall thickening can be seen with diarrhea. Electronically Signed: Bimal Choi MD at 0:02 EDT , Discharge Plan Triage Chief Complaint: Nausea/Vomiting/Diarrhea ED Provider: Kong Madodx Dx/Rx/DC Orders Clinical Impression: Hypokalemia due to excessive gastrointestinal loss of potassium, Gastroenteritis Instructions: Viral Gastroenteritis Prescriptions: New ondansetron 8 mg tablet,disintegrating 8 mg PO Q8H PRN (Reason: nausea and vomiting) Qty: 12 0RF No Action fluticasone propionate 50 mcg/actuation spray,suspension INTRANASAL Patient Comments: USE 1 (ONE) SPRAY IN EACH NOSTRIL DAILY DIRECTED olanzapine 5 mg tablet,disintegrating Patient Comments: Take 1 tablet (5 mg) by mouth once every day. cholecalciferol (vitamin D3) 25 mcg (1,000 unit) capsule 25 mcg PO DAILY Claritin 10 mg tablet,chewable 10 mg PO DAILY olanzapine 5 mg tablet,disintegrating 5 mg PO QHS Qty: 30 1RF omeprazole 40 mg capsule,delayed release(DR/EC) 40 mg PO DAILY Qty: 30 1RF pantoprazole 40 mg tablet,delayed release (DR/EC) 40 mg PO DAILY Primary Care Provider: Carly Ramachandran Referrals: Carly Ramachandran, FUNDRAISING DIRECTOR-C [Primary Care Provider] - 3-5 Days if not improving Disposition Disposition: Home, Self Care
[2023-09-29] MEDS: Ondansetron 4 MG/2 ML Vial IV (22:18)
[2023-09-29] MEDS: 0.9% Normal Saline (1000mL) 1,000 ML 1000 ML IV (22:19)
[2023-09-29] MEDS: Ketorolac 15 MG/ML Vial IV (22:19)
[2023-09-29 22:38] LABS: Absolute Lymphocyte Count 1.04 X10^3/uL (0.83-4.51); Absolute Neutrophil Count 2.5 X10^3/uL (2.0-7.7); Basophil# 0.03 X10^3/uL; Basophil% 0.6 % (0-1); Eosinophil# 0.37 X10^3/uL; Eosinophils% 7.8 % (0-5); Hematocrit 43.3 % (40-54); Hemoglobin 13.9 g/dL (13.0-16.5); Lymphocyte # 1.04 X10^3/ul (0.83-4.51); Lymphocyte % 21.9 % (19-41); Mean Corp Hgb Conc 32.1 g/dL (32-36); Mean Corpuscular Hgb 28.4 pg (27.0-32.0); Mean Corpuscular Volume 88.4 fL (80-94); Mean Platelet Vol. 10.7 fl (6.2-12.0); Monocyte# 0.78 X10^3/uL; Monocyte% 16.5 % (0-10); NRBC Flagged by Analyzer 0 % (0-5); Neutrophil % 52.8 % (47-70); Platelet Count 206 K/mm3 (150-450); RBC Distribution Width CV 13.2 % (11.6-14.6); White Blood Count 4.7 K/mm3 (4.4-11.0)
[2023-09-29 22:58] LABS: ALB/GLOB Ratio 0.9 RATIO (0.9-2.4); AST(SGOT) 29 U/L (15-37); Alanine Aminotransfer ALT/SGPT 66 U/L (16-61); Albumin, Serum 3.3 g/dL (3.2-5.0); Alkaline Phosphatase 105 U/L (45-117); Anion Gap 7 (5-15); BUN 13 mg/dL (7-18); BUN/Creat Ratio 15.7 RATIO (10-20); Calcium,Total 8.5 mg/dL (8.5-10.1); Chloride 103 mmol/L (98-107); Creatinine, Serum 0.83 mg/dL (0.70-1.30); EST Glomerular Filtration Rate 106 mL/min (>60); Est Glom Filt Rate - Afr Amer 128 mL/min (>60); Estimated Creatinine Clearance 100.02 ml/min; Globulin 3.7 g/dL (2.2-4.2); Glucose 98 mg/dL (74-106); Lipase 16 U/L (13-75); Potassium 3.3 mmol/L (3.5-5.1); Sodium Level 137 mmol/L (136-145)
[2023-09-29 23:08] VITALS: BP 121/74; PULSE 70; RESP 16; O2SAT 97
[2023-09-30 01:00] VITALS: BP 117/79; PULSE 68; RESP 16; O2SAT 98
[2023-09-30 01:09] VITALS: BP 117/79; PULSE 69; RESP 17; TEMP 36.6; O2SAT 99
== END 2023-09-30 01:10 | disposition home or self-care (01) ==
PROVIDERS: Emergency Provider Emergency Medicine; PCP Nurse Practitioner Family; Visit Provider Emergency Medicine
DX: E87.6 Hypokalemia (principal); F20.9 Schizophrenia, unspecified; F84.0 Autistic disorder; K52.9 Noninfective gastroenteritis and colitis, unspecified
CPT/HCPCS: 74176; 80053; 83690; 85025; 96361; 96374; 96375; 99283; J7030; A4216; J2405

== ENCOUNTER 2023-12-10 16:00 | Outpatient (RCR) | payer MEDICARE, MEDICAID, SELFPAY ==
--- NOTE | 2023-05-24 16:42 | HP.SP.EV_ITS ---
Visit History Visit Info Date of Eval: 05/24/23 Visit: 1 Chopper Gun Operator: OLYA Lugo Attending Doctor: DONNA Referring Doctor: DONNA Reason for Referral: NON VERBAL LEARNING DISORDER RX HERE Medical Diagnosis: Ischemic Encephalopathy,Autism, Schizophrenia, Non-verbal learning disorder Previous speech therapy: No Results: Unknown if there is a hx of speech therapy. Other Relevant Medical History/Diagnoses/Surgery: ARVIND SYED is a 48 year old male who presents to [facility] following diagnoses of Autism, Schizophrenia, Non-verbal learning disorder, Ischemic Encephalopathy, and GERD. He was accompanied by Mandi, sister, who acquired guardianship in January 2023. He was previously living with his mother, until she . Mandi stating this is a new relationship with her brother so her understanding of his medical history is mostly from court documentation. They were estranged until right before his mother was passing away. Mandi is unclear if he has participated in speech therapy prior to today. Mandi says Arvind tries to use a few words, but his speech is mostly unintelligible to her. He was previously involved with [facility] [employer]. In this documentation it was noted that he was a full term , but around [age] year old, Arvind had a pack-n-play collapse on his neck which led to a dx of Ischemic Encephalopathy. He started Kindergarten at age 6 years and was non-verbal at that time. In documentation from December 06, 1999, it was stated that he presents with some echolalia but that he will talk when he wants. He participated in psychological testing at the age of 22.5 years old and it was revealed that his receptive language was more advanced than his expressive but that he does have severe mental retardation. It was reported that his behavior is typically very mild and gentle, however there are times where he will randomly lash out and hit. Mandi reporting that she is suspecting there may have been some neglect in Arvind's previous living experience as she has to wipe him after he uses the restroom, supervise him while he washes his hands, and is also a max assist when it comes to bathing himself. When asked what he does during the day, Mandi reporting that he mostly just paces. At meal time he reportedly has a difficult time staying at the table and prefers to take a piece of food from the table, wander around, and then come back to the table for another piece. In the [facility] [employer] documentation it was noted that his sensory preferences include having dim lights and participating in the sensory room. Mandi also reporting that Arvind will be participating in a thorough Autism evaluation with a psychologist at the [facility] in [place] in order to learn more about his strengths and areas of growth. This testing will occur in July 2023. Smoking Status: Never smoker Diagnosis Diagnosis: Autism (F84.0), Schizophrenia (H61.22), Non-verbal learning disorder (F81.89), Picky eater (R63.39), GERD, Severe Mixed Receptive and Expressive Language Disorder (F80), Impacted Cerumen of left ear Pain Is pain an issue with your current prescribed condition?: No Personal Preferred language: Danish Patient Allergies Allergies Allergies: Allergies No Known Allergies Allergy (Verified 12/23/22 13:23) ROWPVT-4 ROWPVT-4 ROWPVT-4 Administered: No ROWPVT-4: Testing did not occur: See additional information below. Comments Additional information: Testing was not able to occur this date given time constraints of session and need for significant case history collection. However, the ROWPVT would be an appropriate assessment to administer next session to gain an understanding of Arvind's receptive language strengths. Objective Dysphagia Swallowing Impairment Contributing Factors to Swallowing Impairment: Reduced Alertness or Attention, Difficulty Following Directions and Mastication Inefficiency Impact Comments: Mandi reporting that Arvind is a picky eater. He will eat bananas and grapes, no vegetables unless they are cut up into tiny pieces and mixed in with a softer food, he seems to be liking [place] yogurt, he will eat hamburger, chicken and fish sticks, but Mandi has to cut them up into tiny pieces. Arvind does not like to use spoons or other silverware - he prefers to use his fingers. He likes to eat Big Macs from [employer] but will eat the sandwich top, down where he'll eat just the top bun first, then the burger, then the bottom bun. He does not like soup d/t its mixed texture, but Mandi stating if she strains out the broth, then Arvind will eat the contents of the soup with his fingers. He consumes 6 small meals a day with 2 of them containing a Boost/Ensure. He was significantly underweight (105 lbs) when Mandi first obtained guardianship and has since gained a little over 30 lbs. Arvind does not brush his teeth nor will he let others brush them for him. Mandi stating that Arvind's overall oral care is severely poor with decaying dentition. He has not been to the dentist because it is hard for him to allow others near his mouth. He also continues to mouth toys or other non-food objects. Recommendations Swallowing Treatment: Yes Safety Saftey Precautions/Swallowing Recommendations (Check all that Apply): Supervision Needed All Meals, 1 to 1 Close Supervision, Reduce Distractions and Needs Verbal Cues to Use Recommended Strategies Results Swallowing Within Normal Limits: No Swallowing Diagnosis: Oral Phase Dysphagia (R13.11) Additional: Suspecting oral phase given sister's report - further testing needed Objective AAC AAC Objective: Mandi showing emoji emotion laminated pictures to ST to show what they have been trying at home together. Mandi stating that she isn't sure that Arvind is understanding what they mean or how to use them. Education provided that at this time emotions may be too hard of a skill for Arvind right now with having to understand that vocabulary term, knowing what happy means to him, and also relating that to a picture. Gave suggestions on creating pictures of items they have in the home that are familiar to him (e.g., bathroom, granola bar, apple) to allow him to have a choice and create a relation between items in the home and a picture. Mandi appeared receptive to this suggestion. Education also provided re: introducing high tech AAC to see if Arvind would be interested in learning how to use a device. Education provided on how therapy may seem like a trial and error set up at the beginning while we figure out how Arvind learns and communicates best. Arvind's dx of severe mental retardation may impact his ability on using a device, however on the other hand having a motor plan may be easy for him to adapt to. Mandi showing understanding. Subjective Cog/Ling/Com Subjective Cognitive/Linguistic/Communication: Mandi reporting a family friend stated that Arvind is able to speak. Likely a regression at this time, d/t change in caregiver potentially. During the evaluation this date, Arvind was observed using yes and here. Reference: Neuro-QoL instrument Radiation Oncology Patient Plan Plan Plan: Will recommend Arvind for weekly outpatient speech therapy to address severe deficits in developmental speech, language, and feeding milestones. Arvind presents with a deficit in communicative intent, interactive attention with others, social skills, and receptive/expressive language as compared to same aged peers. These deficits affect his ability to communicate his wants and needs as well as understand information presented to them in a daily living environment. Arvind would benefit from investigation on how he best learns and uses language in order to create a communication system. It will include opportunities to engaged verbally, via pictures, via gestures, or with a high tech speech generating system. Will also rx Pt to participate in a skilled occupational therapy evaluation to assess sensory characteristics and ADL needs reported in today's evaluation. Recommendations Treatment Warranted: Yes Treatment Warranted: Receptive/ Expressive Language, Dysphagia and Pediatric Feeding/ Oral Aversion Comment: Occupational Therapy Evaluation is recommended. Progress Prognosis: Fair Frequency Frequency: 1-2x /Week Additional (Frequency): Starting out with 2x/week for 30 min. appts Duration: 6 Months Patient/Family Goal Patient/Family Goal: To create a communication system for Arvind. Goals that are Established Determination:: Goals will be added/modified as deemed necessary and appropriate. Therapy will be discontinued when results of re-evaluation indicate therapy is no longer needed or lack of progress has been documented. Goal #1-5 Goal #1: Arvind will be exposed to AAC modeling provided by the speech therapist during play at least 15 times per 30 minute session. Goal #2: Arvind will interact with a low or high tech AAC system via looking at communication pictures, holding device, exploring keys, activating desired squires with moderate verbal and visual prompting 10 times during a 30 minute session for 3/4 sessions. Goal #3: Arvind will participate in further receptive and expressive language assessment to determine appropriate goals. Goal #4: Arvind will participate in further feeding and dysphagia assessment to determine appropriate goals. Education Patient Instruction Patient Education: Diagnosis and Goals Person Taught: Family Teaching Method: Discussion and Demonstration Response to teaching: Return demonstration and Verbalize understanding
--- NOTE | 2023-07-12 15:36 | HP.SPREEV_ITS ---
Patient Allergies Allergies Allergies: Allergies No Known Allergies Allergy (Verified 12/23/22 13:23) Previous/Current Goals Goals 1-5 Previous Goal #1: Arvind will be exposed to AAC modeling provided by the speech therapist during play at least 15 times per 30 minute session. Goal 1 Status: GOAL PROGRESSING: Arvind was exposed to AAC modeling between 10 and 15x per session for the first few therapy sessions. Buttons modeled included colors, his name, and zoo animals with figurine reinforcements. At this time, high tech AAC appears to be beyond zone of proximal development for Ever. Suspect he would benefit from education of low tech AAC with identifying picture cards to tangible items. Previous Goal #2: Arvind will interact with a low or high tech AAC system via looking at communication pictures, holding device, exploring keys, activating desired squires with moderate verbal and visual prompting 10 times during a 30 minute session for 3/4 sessions. Goal 2 Status: GOAL NOT MET: Ever selecting an item 6x with 3 of them being with him looking at the device with what appeared to be intentional selection. Most of Ever's selections were non-purposeful. Suspect low cognition as well as poor eye sight impact his ability to functionally use a high tech AAC system at this time. This may be an avenue for future goals, but at this time suspect a lower tech option would be more appropriate. Previous Goal #3: Arvind will participate in further receptive and expressive language assessment to determine appropriate goals. Goal 3 Status: SEE TESTING BELOW. ADDITIONAL TRIALS DISCUSSED HERE: Ever answered yes/no questions when provided with a yes/no visual where he could tap between each. He was asked is your name Ever? and Is your name ____? where an incorrect name was asked. Ever would always respond verbally with yes, but was able to select no on average 53% of the time. Suspect the adding question is beyond his zone of proximal development at this time. Trialed more tangible objects with categorization of like items with a verbal label to be placed on top of the yes/no. Pt showing skills to categorize animals with 75% acc with evidence of overgeneralization intermittently (e.g., thinking elephant and hippo was the same). When asked with a just a verbal label zebra? Pt 0% acc and not reliable with only a label. Previous Goal #4: Arvind will participate in further feeding and dysphagia assessment to determine appropriate goals. Goal 4 Status: NOT TARGETED AT THIS TIME. SISTER REPORTING HE IS STARTING TO EAT MORE AT HOME NOW, HOWEVER THIS GOAL IS STILL APPROPRIATE TO TARGET AT A LATER DATE GIVEN HIS LIMITED REPERTOIRE. ROWPVT-4 ROWPVT-4 ROWPVT-4 Administered: Yes ROWPVT-4: The ROWPVT-4 is individually administered, norm-referenced assessment of how well persons age 2 years 0 month to over 80 years can match a word that is heard (in [place]) to objects, actions, or concepts presented in full-color pictures (in a multple-choice format). The ROWPVT-4 features additional items for younger children as well as for older adults. The ROWPVT-4 are based on a population distribution having a mean of 100 and standard deviation of 15. Date: 05/27/23 Results Chronological Age: 48 years Standard Score: <55 Age Equivalent: 2 years 2 months Percentage Rank: <1 Comments Additional information: Raw score = 25 Ever identified the following: shoe, fish, chair, balloon, spoon, door, bed, hand, car, lion, carrot, hat, socks, clock, flower, belt, people, bear, thumb, bowl, cookie, pear, barking, open, and jungle. EOWPVT-4 EOWPVT-4 EOWPVT-4 Administered: Yes EOWPVT-4: The EOWPVT-4 is an individually administered, norm-referenced assessment of how well persons age 2 years 0 months to over 80 years can name(in [place]) the objects, actions, or concepts presented in full-color pictures. The EOWPVT-4 features additional items for youner children, as well as items applicable to older adults. The EOWPVT-4 are based on a population distribution having a mean of 100 and standard deviation of 15. Date: 05/29/23 Results Standard Score: <55 Age Equivalent: 3 years 3 months Percentage Rank: <1 Comments Additional information: Raw Score = 37 Ever labeled the following: apple, eyes, free, cat, phone, bike, monkey, boat, airplane, banana (elias), elephant, scissors, swing, ear, squires, swimming, couch, truck, coat, cup, hair, bus, foot, bee, corn, basket, devulcanizer loader, animals, painter railroad car, rug, skateboard, clothes, tiger, food, luggage, fruit, and tire. Suspect Ever may be a gestalt language processer given his echolalia present during therapy sessions, so he may be able to label and identify more than is shown through this assessment. Limitations of this assessment for a level 1 gestalt language processors is it requires a one word label where he uses a phrase to identify items or request that may not necessarily be directed related to the target item. Objective Dysphagia Swallowing Impairment Contributing Factors to Swallowing Impairment: Reduced Alertness or Attention, Difficulty Following Directions and Mastication Inefficiency Impact Comments: Mandi reporting that Arvind is a picky eater. He will eat bananas and grapes, no vegetables unless they are cut up into tiny pieces and mixed in with a softer food, he seems to be liking Telugu yogurt, he will eat hamburger, chicken and fish sticks, but Mandi has to cut them up into tiny pieces. Arvind does not like to use spoons or other silverware - he prefers to use his fingers. He likes to eat Big Macs from [employer] but will eat the sandwich top, down where he'll eat just the top bun first, then the burger, then the bottom bun. He does not like soup d/t its mixed texture, but Mandi stating if she strains out the broth, then Arvind will eat the contents of the soup with his fingers. He consumes 6 small meals a day with 2 of them containing a Boost/Ensure. He was significantly underweight (105 lbs) when Mandi first obtained guardianship and has since gained a little over 30 lbs. Arvind does not brush his teeth nor will he let others brush them for him. Mandi stating that Arvind's overall oral care is severely poor with decaying dentition. He has not been to the dentist because it is hard for him to allow others near his mouth. He also continues to mouth toys or other non-food objects. Recommendations Swallowing Treatment: Yes Safety Saftey Precautions/Swallowing Recommendations (Check all that Apply): Supervision Needed All Meals, 1 to 1 Close Supervision, Reduce Distractions and Needs Verbal Cues to Use Recommended Strategies Results Swallowing Within Normal Limits: No Swallowing Diagnosis: Oral Phase Dysphagia (R13.11) Additional: Suspecting oral phase given sister's report - further testing needed Objective AAC AAC Objective: Mandi showing emoji emotion laminated pictures to ST to show what they have been trying at home together. Mandi stating that she isn't sure that Alejandro franklin is understanding what they mean or how to use them. Education provided that at this time emotions may be too hard of a skill for Arvind right now with having to understand that vocabulary term, knowing what happy means to him, and also relating that to a picture. Gave suggestions on creating pictures of items they have in the home that are familiar to him (e.g., bathroom, granola bar, apple) to allow him to have a choice and create a relation between items in the home and a picture. Mandi appeared receptive to this suggestion. Education also provided re: introducing high tech AAC to see if Arvind would be interested in learning how to use a device. Education provided on how therapy may seem like a trial and error set up at the beginning while we figure out how Arvind learns and communicates best. Arvind's dx of severe mental retardation may impact his ability on using a device, however on the other hand having a motor plan may be easy for him to adapt to. Mandi showing understanding. Subjective Cog/Ling/Com Subjective Cognitive/Linguistic/Communication: Mandi reporting a family friend stated that Arvind is able to speak. Likely a regression at this time, d/t change in caregiver potentially. During the evaluation this date, Arvind was observed using yes and here. Reference: Neuro-QoL instrument Radiation Oncology Patient Plan Plan Plan: Will recommend Arvind for weekly outpatient speech therapy to address severe deficits in developmental speech, language, and feeding milestones. Arvind presents with a deficit in communicative intent, interactive attention with others, social skills, and receptive/expressive language as compared to same aged peers. These deficits affect his ability to communicate his wants and needs as well as understand information presented to them in a daily living environment. Arvind would benefit from investigation on how he best learns and uses language in order to create a communication system. It will include opportunities to engaged verbally, via pictures, via gestures, or with a high tech speech generating system. Pt recently participated in OT evaluation and will begin therapy targeting sensory integration and ADL assistance as able. Recommendations Treatment Warranted: Yes Treatment Warranted: Receptive/ Expressive Language, Dysphagia and Pediatric Feeding/ Oral Aversion Comment: . Progress Prognosis: Fair Frequency Frequency: 1-2x /Week Additional (Frequency): 2x/week for 30 min. appts Duration: 6 Months Patient/Family Goal Patient/Family Goal: To create a communication system for Arvind. Goals that are Established Determination:: Goals will be added/modified as deemed necessary and appropriate. Therapy will be discontinued when results of re-evaluation indicate therapy is no longer needed or lack of progress has been documented. Goal #1-5 Goal #1: Arvind will be exposed to low tech AAC modeling including but not limited to a visual schedule, comments, or requests provided by the speech t herapist during therapy session at least 10 times per 30 minute session. Goal #2: Arvind will select target item when given a verbal command from a field of three objects with 70% acc given as needed matching target picture cues across 3 consecutively measured sessions. Goal #3: Arvind will match a picture card with its tangible object with 50% acc given mod verbal and visual cueing across 3 consecutively measured sessions. Goal #4: Arvind will participate in further feeding and dysphagia assessment to determine appropriate goals. Education Patient has Indicated that the Following Identified Educational Needs: Language Barrier, Inability to Read/Write, Psychological Factors, Cognitively Impaired, Hearing/Vision/Speech Impaired and Other Other Educational Needs: family ed. The Patient has indicated that they have no educational or learning abilities that may effect their care.: Yes Patient Instruction Patient Education: Diagnosis and Goals Person Taught: Family Teaching Method: Discussion and Demonstration Response to teaching: Return demonstration and Verbalize understanding
--- NOTE | 2023-07-25 07:05 | HP.OTEVAL_ITS ---
Patient's Visit Information Visit Information Visit Information: ARVIND SYED is a 48 year old M, referred to Occupational Therapy by Carly Ramachandran, JOSIE-Magda, with a diagnosis of Autism. Date of Evaluation: 07/10/23 Occupational Therapist: Mable Mobley, JAKY/Adryan, CHT Subjective Subjective: This 48 year old male was seen for OT kee with dx of Autism- pt with recent change to live with his sister. Sister states he does can not eat with fork or spoon, and she is helping him with all his bathing and dressing task. Sister would like him to do what he can for himself. Unsure of vision ( sister will need it checked) States new environment for her brother: in home is Arvind's sister and her . Sisters Children and grandchildren. this is more than he typically has had around him. He appears to like to watch the and interacts with one of his sisters grandchildren. ADLs Eating: Bring food to mouth, Use silverware and Cut food Comments: will use fingers mostly Bathing: Handle washcloth & soap, Wash hair and Squeeze shampoo bottle Comments: Dependent for bathing Toileting: Perineal care Comments: dependent for cody care Grooming: Trim bang and [place] teeth Comments: dependent - sister is performing Comments: Currently sister is gradian of Arvind - States she is not sure what he was able to do on his own if any ADLs Currently she is providing care with bathing and dressing- Arvind has difficulty sitting for meal Sister states with medication he will sleep at night about 8 hours They have weighted blanket but have not used it at this time. pt demo difficulty sitting for OT eval wandering in room- therapist gave pt figit toy and he did sit to manipulate that in his hand. Quick DASH-Disab of Arm,Shoulder& Hand Quick DASH Score: [phone] Goals Goal:: Following sensory input pt will demo a increase in seated task for 15 min to increase participation with meals, family interaction 4/5 trials pt will demo the ability to demo Face washing, combing hair, oral care with use of verbal and visual cues 4/5 trials. Family will report pt IND washing face, hands and completing grooming 90% of the time with verbal cue in 6 months. Family will demo understanding of sensory tools to decrease adverse behaviors by end of 6 weeks. Family will report use of daily schedule/ use of timers etc. by end of week 6. Pt will demo the ability to don/doff coat with verbal cues 4/5 trials. Rehabilitation General Assessment: Based on Sensory processing measure: scores interpretation of Definite Dysfunction with social participation, Vision, planning and Ideas. A Some Problems in Hearing, Touch and body awareness. Total point score of 105/224 as Some problems. pt demo with limited ability to attend to his surrounding environment- will get up and pace in room when he is agitated some verbalization, but it is unclear what he is saying. Pt demo with a decrease in the ability to attend to seated task to perform self-feeding/ or interaction within his environment. Pt would benefit from skilled OT services 1-2x week for 6 months to assist pt in participating in self-care, sensory regulation. Rehabilitation Potential: Good Anticipated Interventions Anticipated Interventions: ADL Training, Education re assistive Equipment, Education re Diagnosis and Other Other Interventions: sensory re-education possible use of visual cues for tasks ( will talk with speech on cognitive) Visit Plan Frequency: 1-2x /Week Duration: 6 Months General Plan: will work with sensory regulation to increase pts seated time to engage within his environment. ed. family on tools to increase sitting for meals- (ie when plat is in front of pt he sits to eat- if he stands remove plate- when he sits -return plate etc.) ed. on schedule for best outcome TEXT: Thank you for the opportunity to evaluate your patient. For Medicare and Medicare HMO plans, please review the plan of care and approve it. It will need to be FAXED BACK to us at [phone] for Medicare purposes. Please let me know if there are questions or concerns regarding this plan of care. Physician Signature: Date:
--- NOTE | 2023-09-20 16:13 | HP.SP.REEV ---
Visit History Visit Info Date of Eval: 05/24/23 Visit: 1 Patient's Approved Number of Visits: 10 Insurance Date Limit: 05/19/24 Grinder Machine Setter: OLYA Lugo Attending Doctor: DONNA Referring Doctor: DONNA Reason for Referral: NON VERBAL LEARNING DISORDER,AUTISM RX HERE Medical Diagnosis: Ischemic Encephalopathy,Autism, Schizophrenia, Non-verbal learning disorder Previous speech therapy: No Results: Unknown if there is a hx of speech therapy. Other Relevant Medical History/Diagnoses/Surgery: ARVIND SYED is a 48 year old male who presents to [facility] following diagnoses of Autism, Schizophrenia, Non-verbal learning disorder, Ischemic Encephalopathy, and GERD. He was accompanied by Mandi, sister, who acquired guardianship in January 2023. He was previously living with his mother, until she . Mandi stating this is a new relationship with her brother so her understanding of his medical history is mostly from court documentation. They were estranged until right before his mother was passing away. Mandi is unclear if he has participated in speech therapy prior to today. Mandi says Arvind tries to use a few words, but his speech is mostly unintelligible to her. He was previously involved with [facility]. In this documentation it was noted that he was a full term , but around [age] year old, Arvind had a pack-n-play collapse on his neck which led to a dx of Ischemic Encephalopathy. He started Kindergarten at age 6 years and was non-verbal at that time. In documentation from December 06, 1999, it was stated that he presents with some echolalia but that he will talk when he wants. He participated in psychological testing at the age of 22.5 years old and it was revealed that his receptive language was more advanced than his expressive but that he does have severe mental retardation. It was reported that his behavior is typically very mild and gentle, however there are times where he will randomly lash out and hit. Mandi reporting that she is suspecting there may have been some neglect in Arvind's previous living experience as she has to wipe him after he uses the restroom, supervise him while he washes his hands, and is also a max assist when it comes to bathing himself. When asked what he does during the day, Mandi reporting that he mostly just paces. At meal time he reportedly has a difficult time staying at the table and prefers to take a piece of food from the table, wander around, and then come back to the table for another piece. In the [facility] documentation it was noted that his sensory preferences include having dim lights and participating in the sensory room. Mandi also reporting that Arvind will be participating in a thorough Autism evaluation with a psychologist at the [facility] in [place] in order to learn more about his strengths and areas of growth. This testing will occur in July 2023. Smoking Status: Never smoker Diagnosis Diagnosis: Autism (F84.0), Schizophrenia (H61.22), Non-verbal learning disorder (F81.89), Picky eater (R63.39), GERD, Severe Mixed Receptive and Expressive Language Disorder (F80), Impacted Cerumen of left ear Pain Is pain an issue with your current prescribed condition?: No Personal Preferred language: Malian Patient Allergies Allergies Allergies: Allergies No Known Allergies Allergy (Verified 12/23/22 13:23) Previous/Current Goals Goals 1-5 Previous Goal #1: Arvind will be exposed to low tech AAC modeling including but not limited to a visual schedule, comments, or requests provided by the speech therapist during therapy session at least 10 times per 30 minute session. Goal 1 Status: GOAL PARTIALLY MET: At the beginning of this POC, Arvind was exposed to high tech AAC modeling between 10 and 15x per session for the first few therapy sessions. Buttons modeled included colors, his name, and zoo animals with figurine reinforcements. At this time, high tech AAC appears to be beyond zone of proximal development for Ever. Suspect he would benefit from education of low tech AAC with identifying picture cards to tangible items. ST electing to focus on creating familiarity to picture cards to have a foundation for a low tech AAC system. Previous Goal #2: Arvind will select target item when given a verbal command from a field of three objects with 70% acc given as needed matching target picture cues across 3 consecutively measured sessions. Goal 2 Status: GOAL MET: Ever trialed identifying colors from a field of 3 given a verbal command (e.g., red) with 20% (4/20) correct on first trial independently and benefited from visual cue of ST closing her hand when Pt chose incorrectly and repeating the command to improve to 55% acc (11/20). Trialed initially showing Pt more cartoon rendering photos which was discovered to be challenging for him with identifying the items. He was accurate in choosing the correct items 14-20% of the time. Stepped down the complexity of task to pictures of real objects in a FO3 with Ever immediately identifying 83% of them (15/18). He self corrected at least three times. He continues to be consistent with identifying pictures of real objects with above 80% acc with wang of 4-5 as well. Previous Goal #3: Arvind will match a picture card with its tangible object with 50% acc given mod verbal and visual cueing across 3 consecutively measured sessions. Goal 3 Status: GOAL PROGRESSING: Ever matched a picture card to its corresponding color from a field of 3 with varying acc ranging from 0-33% acc independently across 10 trials. Previous Goal #4: Arvind will participate in further feeding and dysphagia assessment to determine appropriate goals. ROWPVT-4 ROWPVT-4 ROWPVT-4 Administered: Yes ROWPVT-4: The ROWPVT-4 is individually administered, norm-referenced assessment of how well persons age 2 years 0 month to over 80 years can match a word that is heard (in [place]ian) to objects, actions, or concepts presented in full-color pictures (in a multple-choice format). The ROWPVT-4 features additional items for younger children as well as for older adults. The ROWPVT-4 are based on a population distribution having a mean of 100 and standard deviation of 15. Date: 09/20/23 Results Chronological Age: 48 years Standard Score: <55 Age Equivalent: 2 years 2 months Percentage Rank: <1 Comments Additional information: Raw score = 25 Ever identified the following: shoe, fish, chair, balloon, spoon, door, bed, hand, car, lion, carrot, hat, socks, clock, flower, belt, people, bear, thumb, bowl, cookie, pear, barking, open, and jungle. EOWPVT-4 EOWPVT-4 EOWPVT-4 Administered: Yes EOWPVT-4: The EOWPVT-4 is an individually administered, norm-referenced assessment of how well persons age 2 years 0 months to over 80 years can name(in Malian) the objects, actions, or concepts presented in full-color pictures. The EOWPVT-4 features additional items for youner children, as well as items applicable to older adults. The EOWPVT-4 are based on a population distribution having a mean of 100 and standard deviation of 15. Date: 05/29/23 Results Standard Score: <55 Age Equivalent: 3 years 3 months Percentage Rank: <1 Comments Additional information: Raw Score = 37 Ever labeled the following: apple, eyes, free, cat, phone, bike, monkey, boat, airplane, banana (elias), elephant, scissors, swing, ear, squires, swimming, couch, truck, coat, cup, hair, bus, foot, bee, corn, basket, hydraulic oil tool operator, animals, aircraft painter apprentice, rug, skateboard, clothes, tiger, food, luggage, fruit, and tire. Suspect Ever may be a gestalt language processer given his echolalia present during therapy sessions, so he may be able to label and identify more than is shown through this assessment. Limitations of this assessment for a level 1 gestalt language processors is it requires a one word label where he uses a phrase to identify items or request that may not necessarily be directed related to the target item. Objective Dysphagia Swallowing Impairment Contributing Factors to Swallowing Impairment: Reduced Alertness or Attention, Difficulty Following Directions and Mastication Inefficiency Impact Comments: Mandi reporting that Arvind is a picky eater. He will eat bananas and grapes, no vegetables unless they are cut up into tiny pieces and mixed in with a softer food, he seems to be liking Malaysian yogurt, he will eat hamburger, chicken and fish sticks, but Mandi has to cut them up into tiny pieces. Arvind does not like to use spoons or other silverware - he prefers to use his fingers. He likes to eat Big Macs from [employer] but will eat the sandwich top, down where he'll eat just the top bun first, then the burger, then the bottom bun. He does not like soup d/t its mixed texture, but Mandi stating if she strains out the broth, then Arvind will eat the contents of the soup with his fingers. He consumes 6 small meals a day with 2 of them containing a Boost/Ensure. He was significantly underweight (105 lbs) when Mandi first obtained guardianship and has since gained a little over 30 lbs. Arvind does not brush his teeth nor will he let others brush them for him. Mandi stating that Arvind's overall oral care is severely poor with decaying dentition. He has not been to the dentist because it is hard for him to allow others near his mouth. He also continues to mouth toys or other non-food objects. Recommendations Swallowing Treatment: Yes Safety Saftey Precautions/Swallowing Recommendations (Check all that Apply): Supervision Needed All Meals, 1 to 1 Close Supervision, Reduce Distractions and Needs Verbal Cues to Use Recommended Strategies Results Swallowing Within Normal Limits: No Swallowing Diagnosis: Oral Phase Dysphagia (R13.11) Additional: Suspecting oral phase given sister's report - further testing needed Objective AAC AAC Objective: Mandi showing emoji emotion laminated pictures to ST to show what they have been trying at home together. Mandi stating that she isn't sure that Arvind is understanding what they mean or how to use them. Education provided that at this time emotions may be too hard of a skill for Arvind right now with having to understand that vocabulary term, knowing what happy means to him, and also relating that to a picture. Gave suggestions on creating pictures of items they have in the home that are familiar to him (e.g., bathroom, granola bar, apple) to allow him to have a choice and create a relation between items in the home and a picture. Mandi appeared receptive to this suggestion. Education also provided re: introducing high tech AAC to see if Arvind would be interested in learning how to use a device. Education provided on how therapy may seem like a trial and error set up at the beginning while we figure out how Arvind learns and communicates best. Arvind's dx of severe mental retardation may impact his ability on using a device, however on the other hand having a motor plan may be easy for him to adapt to. Mandi showing understanding. Subjective Cog/Ling/Com Subjective Cognitive/Linguistic/Communication: Mandi reporting a family friend stated that Arvind is able to speak. Likely a regression at this time, d/t change in caregiver potentially. During the evaluation this date, Arvind was observed using yes and here. Reference: Neuro-QoL instrument Radiation Oncology Patient Plan Plan Plan: Will recommend Arvind for weekly outpatient speech therapy to address severe deficits in developmental speech, language, and feeding milestones. Arvind presents with a deficit in communicative intent, interactive attention with others, social skills, and receptive/expressive language as compared to same aged peers. These deficits affect his ability to communicate his wants and needs as well as understand information presented to them in a daily living environment. Arvind would benefit from investigation on how he best learns and uses language in order to create a communication system. It will include opportunities to engaged verbally, via pictures, via gestures, or with a high tech speech generating system. Pt recently participated in OT evaluation and will begin therapy targeting sensory integration and ADL assistance as able. Recommendations Treatment Warranted: Yes Treatment Warranted: Receptive/ Expressive Language, Dysphagia and Pediatric Feeding/ Oral Aversion Comment: . Progress Prognosis: Fair Frequency Frequency: 1-2x /Week Additional (Frequency): 2x/week for 30 min. appts Duration: 6 Months Patient/Family Goal Patient/Family Goal: To create a communication system for Arvind. Goals that are Established Determination:: Goals will be added/modified as deemed necessary and appropriate. Therapy will be discontinued when results of re-evaluation indicate therapy is no longer needed or lack of progress has been documented. Goal #1-5 Goal #1: Arvind will be exposed to low tech AAC modeling including but not limited to a visual schedule, comments, or requests provided by the speech therapist during therapy session at least 10 times per 30 minute session. Goal #2: Arvind will select pictures of real objects when given a verbal command from a field of five or greater objects with 70% acc given as needed matching target picture cues across 3 consecutively measured sessions. Goal #3: Arvind will match a picture card with its tangible object with 50% acc given mod verbal and visual cueing across 3 consecutively measured sessions. Goal #4: Arvind will participate in further feeding and dysphagia assessment to determine appropriate goals. Education Patient has Indicated that the Following Identified Educational Needs: Language Barrier, Inability to Read/Write, Psychological Factors, Cognitively Impaired, Hearing/Vision/Speech Impaired and Other Other Educational Needs: family ed. The Patient has indicated that they have no educational or learning abilities that may effect their care.: Yes Patient Instruction Patient Education: Diagnosis and Goals Person Taught: Family Teaching Method: Discussion and Demonstration Response to teaching: Return demonstration and Verbalize understanding
== END 2023-12-10 19:00 | disposition home or self-care (01) ==
LOC: OT 16:00
PROVIDERS: PCP Nurse Practitioner Family; Referring Provider Nurse Practitioner Family; Visit Provider Nurse Practitioner Family
DX: F81.89 Other developmental disorders of scholastic skills (principal)
CPT/HCPCS: 92507; 92523; 97166; 97530

== ENCOUNTER 2023-12-13 17:12 | Emergency (ER) | payer MEDICARE, MEDICAID, SELFPAY ==
[2023-12-13 17:14] VITALS: BP 134/94; PULSE 86; RESP 14; TEMP 36.9; O2SAT 99
--- NOTE | 2023-12-13 17:42 | CT_ITS ---
INDICATION: abdominal pain EXAMINATION: CT ABDOMEN AND PELVIS WITH CONTRAST - CT Abdomen And Pelvis W/ Contrast Injection TECHNIQUE: Helically acquired images were obtained of the abdomen and pelvis following IV contrast. A radiation dose optimization technique was used for this scan. IV Contrast dosage and agent: 100 cc [id number] Oral contrast: None. COMPARISON: 09/29/2023 FINDINGS: LOWER CHEST: Lung bases are clear. No cardiomegaly or pericardial effusion. LIVER: Homogeneous. No focal mass. GALLBLADDER AND BILIARY TREE: No calcified gallstones. No gallbladder distension or wall edema. No intra- or extrahepatic biliary ductal dilation. PANCREAS: No focal cystic or solid mass. SPLEEN: Normal size without focal cystic or solid mass. ADRENAL GLANDS: No nodules. KIDNEYS AND URETERS: Stable large left lower pole cortical cyst. No hydronephrosis. PERITONEUM: No ascites or free air. Stable hazy mid mesenteric fat BOWEL: Normal appendix. No stomach or bowel distension. No focal inflammatory change. LYMPH NODES: Interval regression of mildly enlarged mesenteric lymph nodes. No pathologic adenopathy. VESSELS: Aorta is non-dilated. URINARY BLADDER: Unremarkable. REPRODUCTIVE ORGANS: No pelvic masses. ABDOMINAL WALL: Small fat-containing umbilical hernia. BONES: Unremarkable. CT/Abdomen/Pelvis W IV Cont ONLY IMPRESSION: No acute findings in the abdomen or pelvis. Electronically Signed: Calin Burns MD at 19:57 EDT ,
--- NOTE | 2023-12-13 17:43 | EKG12_ITS ---
Test Reason : CP Blood Pressure : / mmHG Vent. Rate : 087 BPM Atrial Rate : 087 BPM P-R Int : 164 ms QRS Dur : 080 ms QT Int : 346 ms P-R-T Axes : 025 050 047 degrees QTc Int : 416 ms Normal sinus rhythm Normal ECG Confirmed by CALLIE EDGE, CHARLES ([id number]), editor index JALEN SANZ ([id number]) on 12/17/2023 1:58:28 PM Referred By: BB Confirmed By:AMINTA LEDESMA MD
--- NOTE | 2023-12-13 17:51 | EDS_ITS ---
HPI <ANTHONY Christopher - Last Filed: 12/13/23 20:22> HPI - GI History of Present Illness Chief Complaint: Abd Pain Narrative Narrative: Patient presenting today with his caregiver/sister due to concerns for chest and abdominal pain. She reports that over the past 2 days he has been rubbing his chest and his abdomen with his hands. He is nonverbal and has a history of autism and schizophrenia. His sister reports that he has been eating normally, he has been having normal bowel movements and has not had any diarrhea, vomiting, fevers, or chills. He does have a history of GERD and takes Protonix. PFS <ANTHONY Christopher - Last Filed: 12/13/23 20:22> [facility] Medical History Schizophrenia GERD (gastroesophageal reflux disease) Autism Home Medications ?Medication ?Instructions ?Recorded ?Last Taken ?Type cholecalciferol (vitamin D3) 25 25 mcg PO DAILY 12/06/22 Unknown History mcg (1,000 unit) capsule fluticasone propionate 50 intranasal 12/06/22 Unknown History mcg/actuation nasal spray,suspension loratadine 10 mg chewable tablet 10 mg PO DAILY 12/06/22 Unknown History (Claritin) olanzapine 5 mg disintegrating 5 mg PO QHS #30 tabs 12/06/22 Unknown Rx tablet olanzapine 5 mg disintegrating mg 12/06/22 12/06/22 History tablet omeprazole 40 mg capsule,delayed 40 mg PO DAILY #30 caps 12/06/22 Unknown Rx release pantoprazole 40 mg tablet,delayed 40 mg PO DAILY 09/29/23 Unknown History release ondansetron 8 mg disintegrating 8 mg PO Q8H PRN nausea and 09/30/23 Unknown Rx tablet vomiting #12 tabs dicyclomine 20 mg tablet 20 mg PO BID PRN abdominal pain 12/13/23 Unknown Rx #14 tabs Allergy/AdvReac Type Severity Reaction Status Date / Time No Known Allergies Allergy Verified 09/29/23 21:08 Family History Mother Lung cancer Heart disease Father Lung cancer Social History household members: family Smoking Status: Never smoker ROS <ANTHONY Christopher - Last Filed: 12/13/23 20:22> ROS ED Constitutional Constitutional ED: Denies chills or fever(s) Cardiovascular Cardiovascular: Reports chest pain Respiratory/Chest Respiratory/Chest: Denies cough, dyspnea or tachypnea Gastrointestinal Gastrointestinal: Reports abdominal pain; Denies diarrhea or vomiting Integumentary Denies rash Neurologic Neurologic: Denies weakness EXAM <ANTHONY Christopher - Last Filed: 12/13/23 20:22> Physical Exam Const Vital Signs: 12/13/23 17:14 12/13/23 19:00 12/13/23 20:44 Temperature 98.5 F 97.8 F Temperature Source Oral Pulse Rate 86 72 72 Respiratory Rate 14 18 16 Blood Pressure 134/94 H 120/70 126/70 H Blood Pressure Mean 107 86 88 Pulse Ox 99 99 98 Oxygen Delivery Method Room Air Room Air Positive well nourished, well developed and no apparent distress General Appearance ED: well developed HEENT Reports normocephalic, head/scalp atraumatic and TM's clear Tympanic Membrane ED: Yes TM's clear Mouth ED: Yes moist mucous membranes normal Eyes PERRL and EOMs intact bilaterally Neck full ROM and supple Chest Wall inspection of chest normal Resp normal respiratory effort and clear to auscultation bilaterally Cardio regular rate and regular rhythm GI soft to palpation, non-tender, non-distended and no masses Palpation: Negative for guarding or rigid Back/Spine normal ROM and normal to inspection Extremity normal to inspection and full ROM Neuro moves all extremities, no focal motor deficits and no sensory deficits noted Sensorium / Orientation: awake and alert Skin no rashes or lesions noted and no wounds <Dr. Kong Maddox MD - Last Filed: 12/14/23 00:41> Physical Exam Const Vital Signs: 12/13/23 17:14 12/13/23 19:00 12/13/23 20:44 Temperature 98.5 F 97.8 F Temperature Source Oral Pulse Rate 86 72 72 Respiratory Rate 14 18 16 Blood Pressure 134/94 H 120/70 126/70 H Blood Pressure Mean 107 86 88 Pulse Ox 99 99 98 Oxygen Delivery Method Room Air Room Air MDM <ANTHONY Christopher - Last Filed: 12/13/23 20:22> MDM MDM Narrative Medical decision making narrative: Patient presenting with his caregiver due to concerns for chest and abdominal pain that started about 2 days ago. He is nonverbal. He has been rubbing his abdomen and his chest with his hands. On my exam his abdomen is soft, there is no rigidity or guarding. However, given patient is unable to provide history labs will be obtained to assess for leukocytosis, anemia, electrolyte abnormality, YANG, UTI, hepatobiliary etiology, pancreatitis, and ACS. CT scan of the abdomen and pelvis will be obtained to rule out appendicitis, cholecystitis, diverticulitis, bowel obstruction, and other etiology. Chest x- ray will be obtained to rule out cardiopulmonary abnormality. Caregiver did tell the attending that he has been rubbing his chest and abdomen off-and-on over the past 2 months, not just the past 2 days. CBC is unremarkable, BUN 24, alkaline phosphatase 206, UA negative for UTI, CT and chest x-ray negative for any acute findings. He will be given a prescription for Bentyl, encouraged that he follow-up with his PCP and he will be discharged home in stable condition. Lab Data Attestation: I reviewed the patient's lab results. Labs: Laboratory Results - last 24 hr 12/13/23 12/13/23 17:24 19:20 WBC 7.1 RBC 4.62 Hgb 12.9 L Hct 40.5 MCV 87.7 MCH 27.9 MCHC 31.9 L RDW Std Deviation 42.6 RDW Coeff of Dc 13.3 Plt Count 257 MPV 10.8 Immature Gran % (Auto) 0.400 Neut % (Auto) 52.7 Lymph % (Auto) 30.5 [place] % (Auto) 8.1 Eos % (Auto) 8.0 H Baso % (Auto) 0.3 Absolute Neuts (auto) 3.8 Absolute Lymphs (auto) 2.17 Nucleated RBC % 0 Sodium 140 Potassium 3.9 Chloride 109 H Carbon Dioxide 26.0 Anion Gap 5 BUN 24 H Creatinine 1.02 Estim Creat Clear Calc 87.08 Est GFR (MDRD) Af Amer 100 Est GFR (MDRD) Non-Af 83 BUN/Creatinine Ratio 23.5 H Glucose 133 H Calcium 8.8 Total Bilirubin 0.20 AST 27 ALT 49 Alkaline Phosphatase 206 H Troponin I High Sens 5 Total Protein 7.7 Albumin 3.6 Globulin 4.1 Albumin/Globulin Ratio 0.9 Lipase 40 Urine Color Yellow Urine Clarity Clear Urine pH 7.0 Ur Specific [place] 1.005 Urine Protein Negative Urine Glucose (UA) Normal Urine Ketones Negative Urine Occult Blood Negative Urine Nitrite Negative Urine Bilirubin Negative Urine Urobilinogen Normal Ur Leukocyte Esterase Negative Urine RBC 0 SEEN Urine WBC 0 SEEN Ur Squamous Epith Cells 0 SEEN Urine Bacteria 0 SEEN Urine Mucus 0 SEEN Radiography X-Ray: Read by ED Physician Diagnostic Testing: Clinical Impression(s) from Imaging Studies Abdomen/Pelvis CT 12/13/23 17:42 IMPRESSION: No acute findings in the abdomen or pelvis. Electronically Signed: Calin Burns MD at 19:57 EDT , Chest X-Ray 12/13/23 18:05 IMPRESSION: No radiographic evidence of acute cardiopulmonary disease. Electronically Signed: Calin Burns MD at 19:59 EDT , <Dr. Kong Maddox MD - Last Filed: 12/14/23 00:41> [facility] Lab Data Labs: Laboratory Results - last 24 hr 12/13/23 12/13/23 17:24 19:20 WBC 7.1 RBC 4.62 Hgb 12.9 L Hct 40.5 MCV 87.7 MCH 27.9 MCHC 31.9 L RDW Std Deviation 42.6 RDW Coeff of Dc 13.3 Plt Count 257 MPV 10.8 Immature Gran % (Auto) 0.400 Neut % (Auto) 52.7 Lymph % (Auto) 30.5 [place] % (Auto) 8.1 Eos % (Auto) 8.0 H Baso % (Auto) 0.3 Absolute Neuts (auto) 3.8 Absolute Lymphs (auto) 2.17 Nucleated RBC % 0 Sodium 140 Potassium 3.9 Chloride 109 H Carbon Dioxide 26.0 Anion Gap 5 BUN 24 H Creatinine 1.02 Estim Creat Clear Calc 87.08 Est GFR (MDRD) Af Amer 100 Est GFR (MDRD) Non-Af 83 BUN/Creatinine Ratio 23.5 H Glucose 133 H Calcium 8.8 Total Bilirubin 0.20 AST 27 ALT 49 Alkaline Phosphatase 206 H Troponin I High Sens 5 Total Protein 7.7 Albumin 3.6 Globulin 4.1 Albumin/Globulin Ratio 0.9 Lipase 40 Urine Color Yellow Urine Clarity Clear Urine pH 7.0 Ur Specific [place] 1.005 Urine Protein Negative Urine Glucose (UA) Normal Urine Ketones Negative Urine Occult Blood Negative Urine Nitrite Negative Urine Bilirubin Negative Urine Urobilinogen Normal Ur Leukocyte Esterase Negative Urine RBC 0 SEEN Urine WBC 0 SEEN Ur Squamous Epith Cells 0 SEEN Urine Bacteria 0 SEEN Urine Mucus 0 SEEN Radiography Diagnostic Testing: Clinical Impression(s) from Imaging Studies Abdomen/Pelvis CT 12/13/23 17:42 IMPRESSION: No acute findings in the abdomen or pelvis. Electronically Signed: Calin Burns MD at 19:57 EDT , Chest X-Ray 12/13/23 18:05 IMPRESSION: No radiographic evidence of acute cardiopulmonary disease. Electronically Signed: Calin Burns MD at 19:59 EDT , Treatment and Re-Evaluation Comments:: I have personally performed a face to face assessment of the patient and have reviewed the WARREN Note. I performed a substantive portion of the visit including all aspects of the following. My squires findings include: History is rubbing chest and abdomen off-and-on for months. The chuck splitter states at times it seems like he has a bellyache. No diarrhea, bright red blood rectum, vomiting, fevers or chills. More prominent in the last couple days. Wanted to have it evaluated, called the office and nurse told her to bring him to the ER. At this time he appears to be asymptomatic he is not rubbing anything. Limited history since the patient is nonverbal. Exam is well-appearing in no distress. Abdomen soft nontender nondistended lungs clear heart is regular, no respiratory distress breathing easily. Medical Decison Making EKG is normal, chest x-ray 2 views on my interpretation is normal, CT abdomen/pelvis on my interpretation is normal, and the labs are normal. Rest assured there is nothing emergent going on, we are planning to prescribe some dicyclomine to use as needed follow-up advised. Other additions or changes: [None] Discharge Plan Triage Chief Complaint: Abd Pain ED Midlevel Provider: Chen Sanchez ED Provider: Kong Maddox Dx/Rx/DC Orders Clinical Impression: Abdominal pain, Autism, Chest pain Instructions: Abdominal Pain, ED Chest Pain, Uncertain Cause Prescriptions: New dicyclomine 20 mg tablet 20 mg PO BID PRN (Reason: abdominal pain) Qty: 14 0RF No Action fluticasone propionate 50 mcg/actuation spray,suspension INTRANASAL Patient Comments: USE 1 (ONE) SPRAY IN EACH NOSTRIL DAILY DIRECTED olanzapine 5 mg tablet,disintegrating Patient Comments: Take 1 tablet (5 mg) by mouth once every day. cholecalciferol (vitamin D3) 25 mcg (1,000 unit) capsule 25 mcg PO DAILY Claritin 10 mg tablet,chewable 10 mg PO DAILY olanzapine 5 mg tablet,disintegrating 5 mg PO QHS Qty: 30 1RF omeprazole 40 mg capsule,delayed release(DR/EC) 40 mg PO DAILY Qty: 30 1RF pantoprazole 40 mg tablet,delayed release (DR/EC) 40 mg PO DAILY ondansetron 8 mg tablet,disintegrating 8 mg PO Q8H PRN (Reason: nausea and vomiting) Qty: 12 0RF Primary Care Provider: Carly Ramachandran Referrals: Carly Ramachandran, C[employer] MIX[employer]IVER[employer] [Primary Care Provider] - 5-7 Days Activity Restrictions/Additional Instructions: Follow-up with PCP and return for worsening of your symptoms. Print Language: Uzbek Disposition Disposition: Home, Self Care Discharge Date/Time: 12/13/23 20:45
[2023-12-13 17:57] LABS: Absolute Lymphocyte Count 2.17 X10^3/uL (0.83-4.51); Absolute Neutrophil Count 3.8 X10^3/uL (2.0-7.7); Basophil# 0.02 X10^3/uL; Basophil% 0.3 % (0-1); Eosinophil# 0.57 X10^3/uL; Hematocrit 40.5 % (40-54); Hemoglobin 12.9 g/dL (13.0-16.5); Lymphocyte # 2.17 X10^3/ul (0.83-4.51); Lymphocyte % 30.5 % (19-41); Mean Corp Hgb Conc 31.9 g/dL (32-36); Mean Corpuscular Hgb 27.9 pg (27.0-32.0); Mean Corpuscular Volume 87.7 fL (80-94); Mean Platelet Vol. 10.8 fl (6.2-12.0); Monocyte# 0.58 X10^3/uL; Monocyte% 8.1 % (0-10); NRBC Flagged by Analyzer 0 % (0-5); Neutrophil # 3.75 X10^3/uL (2.7-7.7); Neutrophil % 52.7 % (47-70); Platelet Count 257 K/mm3 (150-450); RBC Distribution Width CV 13.3 % (11.6-14.6); RBC Distribution Width SD 42.6 fl (35.1-43.9); Red Blood Count 4.62 M/mm3 (4.6-6.2); White Blood Count 7.1 K/mm3 (4.4-11.0)
--- NOTE | 2023-12-13 18:05 | RAD_ITS ---
INDICATION: chest pain EXAMINATION/TECHNIQUE: X-RAY - XR Chest 2 Views COMPARISON: 01/11/2023 FINDINGS: LINES/DEVICES: None. LUNGS: No consolidation, edema or effusion. No pneumothorax. MEDIASTINUM AND CARDIOVASCULAR STRUCTURES: Cardiac silhouette not enlarged. Central airways and mediastinal contour are unremarkable. BONES AND SOFT TISSUES: Unremarkable. RAD/Chest PA and Lateral IMPRESSION: No radiographic evidence of acute cardiopulmonary disease. Electronically Signed: Calin Burns MD at 19:59 EDT ,
[2023-12-13 18:19] LABS: ALB/GLOB Ratio 0.9 RATIO (0.9-2.4); AST(SGOT) 27 U/L (15-37); Alanine Aminotransfer ALT/SGPT 49 U/L (16-61); Albumin, Serum 3.6 g/dL (3.2-5.0); Alkaline Phosphatase 206 U/L (45-117); Anion Gap 5 (5-15); BUN 24 mg/dL (7-18); BUN/Creat Ratio 23.5 RATIO (10-20); Calcium,Total 8.8 mg/dL (8.5-10.1); Chloride 109 mmol/L (98-107); Creatinine, Serum 1.02 mg/dL (0.70-1.30); EST Glomerular Filtration Rate 83 mL/min (>60); Est Glom Filt Rate - Afr Amer 100 mL/min (>60); Estimated Creatinine Clearance 87.08 ml/min; Globulin 4.1 g/dL (2.2-4.2); Glucose 133 mg/dL (74-106); Lipase 40 U/L (13-75); Potassium 3.9 mmol/L (3.5-5.1); Protein, Total 7.7 g/dL (6.4-8.2); Sodium Level 140 mmol/L (136-145); Troponin-I HS 5 pg/mL (3.0-78.0)
[2023-12-13 19:00] VITALS: BP 120/70; PULSE 72; RESP 18; O2SAT 99
[2023-12-13 19:26] LABS: Bacteria 0 SEEN /hpf (None Seen); Color, Urine Yellow (Yellow); Glucose, Dipstick Normal (Normal); Ketone-Dipstick Negative (Negative); Leukocyte Esterase-Dipstick Negative /ul (Negative); Mucous, Urine 0 SEEN /hpf (<or=2+); Nitrite-Dipstick Negative (Negative); Occult Blood-Urine Negative /ul (Negative); Protein-Dipstick Negative (Negative); Red Blood Cells-Urine 0 SEEN /hpf (0-5); Specific Gravity, Urine 1.005 (1.002-1.030); Squamous Epithelial Cells - UA 0 SEEN /hpf (0-5); Urine Bilirubin Dipstick Negative (Negative); Urine Clarity Clear (Clear); Urine Urobilinogen Normal (Normal); White Blood Cells 0 SEEN /hpf (0-5)
[2023-12-13 20:44] VITALS: BP 126/70; PULSE 72; RESP 16; TEMP 36.6; O2SAT 98
== END 2023-12-13 20:45 | disposition home or self-care (01) ==
PROVIDERS: Physician Assistant; Emergency Provider Emergency Medicine; PCP Nurse Practitioner Family; Visit Provider Emergency Medicine
DX: R10.9 Unspecified abdominal pain (principal); F20.9 Schizophrenia, unspecified; F84.0 Autistic disorder; R07.9 Chest pain, unspecified; K21.9 Gastro-esophageal reflux disease without esophagitis
CPT/HCPCS: 71046; 74177; 80053; 81001; 83690; 84484; 85025; 93005; 99284; P9612; A4216

== ENCOUNTER 2024-01-09 15:30 | Outpatient (RCR) | payer MEDICARE, MEDICAID, SELFPAY ==
--- NOTE | 2024-01-09 16:20 | HP.OTDCSUM ---
Discharge Summary D/C Summary: It has been my pleasure to treat MICHAEL SYED under orders from Carly Ramachandran, [place], for the diagnosis of Autism for a total of 28 visit(s). Please see the following information for a summary of their discharge status. Goals Patient Goals: Improve Fine Motor Skills, Be More Independent in ADLS, Improve Visual/Perceptual Skills and Other Other: Sensory Regulation Goal:: Goal:: Following sensory input pt will demo a increase in seated task for 15 min to increase participation with meals, family interaction 4/5 trials GOAL MET pt will demo the ability to demo Face washing, combing hair, oral care with use of verbal and visual cues 4/5 trials. GOAL MET Family will report pt IND washing face, hands and completing grooming 90% of the time with verbal cue in 6 months. NOT MET min a Family will demo understanding of sensory tools to decrease adverse behaviors by end of 6 weeks. GOAL MET Family will report use of daily schedule/ use of timers etc. by end of week 6. GOAL MET Pt will demo the ability to don/doff coat with verbal cues 4/5 trials. NOT MET Plan Plan: discharge D/C Information d/c sentence: If there are questions or concerns regarding this patient's occupational therapy, please fell free to call me at [phone]. Thank you for the referral of this patient. Sincerely, Lexi Cosme
--- NOTE | 2024-01-09 16:20 | HP.OT.NRP ---
Patient Information Patient Information: IMCHAEL SYED was seen in my office for initial evaluation on . The following Plan of Care was established for this patient: POC Established Plan: discharge Anticipated Interventions Anticipated Interventions: ADL Training, Education re assistive Equipment and Education re Diagnosis Last Seen Last Seen: This patient was last seen in our office 01/09/24. Pertinent comments regarding their Occupational therapy will appear below: This 48 year old male has been seen for 28 sessions and demonstrating progress made in self care task of washing face brushing teeth and washing hands, improved seated attention to task for completion of fine motor activity. family provided with ed on schedules for routines as well as ed on sensory strategies. discharge at this time as pt is in school and doing well pt and family in agreement. At this point I will be discontinuing this patient from occupational therapy. I would be happy to see this patient again in the future if found appropriate by the physician. Thank you! Lexi Cosme
--- NOTE | 2024-01-29 12:55 | HP.SP.DC_ITS ---
ST Discharge Summary Discharged: Discharge: MICHAEL SYED is a 48 year old male who presented to [facility] on 05/24/23 following a dx of non-verbal learning disorder, Autism, and schizophrenia. Pt attended initial evaluation with goals created to target exposure to low tech AAC, choosing pictures of real objects following a verbal label in a field of 5, and matching pictures to tangible objects. After evaluation, Pt attended 29 visits. After his last visit on 12/17/23, follow up visits were no showed/canceled . Pt being discharged from speech therapy caseload on this date d/t Pt absence in attending additional treatment visits. Thank you for allowing me to participate in the care of your patient. Will reevaluate at Pt?s request following script from physician.
== END 2024-01-09 19:00 | disposition home or self-care (01) ==
LOC: OT 15:30
PROVIDERS: PCP Nurse Practitioner Family; Referring Provider Nurse Practitioner Family; Visit Provider Nurse Practitioner Family
DX: F84.0 Autistic disorder (principal); F81.89 Other developmental disorders of scholastic skills; R63.39 Other feeding difficulties
CPT/HCPCS: 92507; 97530

== ENCOUNTER 2024-06-18 07:17 | Day surgery (SDC) | payer MEDICARE, MEDICAID, SELFPAY ==
[2024-06-18] VITALS (9 sets, daily range): BP systolic 89–128; BP diastolic 74–90; PULSE 66–78; RESP 14–18; TEMP 36.4–36.9; O2SAT 96–98; BMI 21.5
--- NOTE | 2024-06-18 08:01 | PRE.ANES_ITS ---
ASA Classification* ASA Classification ASA Classification: 2 Assessment & Plan Anesthesia* Anesthesia Assessment Anesthesia Assessment: Discussed sedation and/or anesthesia options, risks, benefits, and alternatives with patient/parents/legal guardian/POA. Questions invited. The patient/parents/legal guardian/POA seems to understand and agrees to proceed with anesthesia plan. Reviewed the physical assessment, medical history, allergy history and patient home medications list prior to surgery/procedure/anesthetic and documented any changes. Performed airway and anesthesia risk assessments. Anesthesia Type Anesthesia Type: MAC History Source History Obtained from:: Patient and Chart Anesthesia Focused Assessment* Temperature: 98.3 F Pulse Rate: 71 Blood Pressure: 128/90 Respiratory Rate: 18 Pulse Ox: 96 Oxygen Delivery Method: Room Air Airway Assessment Mouth opens: 2 cm Mallampati Score: IV Teeth Condition: Chipped/Broken (Poor dentition. Unable to fully assess) Comment: Patient is aged [age] mentation. Unable to assess airway fully. Focused Labs Anesthesia Preop lab: CBC WBC 7.1 K/mm3 (4.4-11.0) 12/13/23 17:24 12/13/23 RBC 4.62 M/mm3 (4.6-6.2) 12/13/23 17:24 12/13/23 Hgb 12.9 g/dL (13.0-16.5) L 12/13/23 17:24 4 Hct 40.5 % (40-54) 12/13/23 17:24 12/13/23 Plt Count 257 K/mm3 (150-450) 12/13/23 17:24 12/13/23 CHEMISTRY Potassium 3.9 mmol/L (3.5-5.1) 12/13/23 17:24 12/13/23 Sodium 140 mmol/L (136-145) 12/13/23 17:24 12/13/23 BUN 24 mg/dL (7-18) H 12/13/23 17:24 12/13/23 Creatinine 1.02 mg/dL (0.70-1.30) 12/13/23 17:24 12/13/23 Glucose 133 mg/dL (74-106) H 12/13/23 17:24 12/13/23 COAG Pre-Assessment Diagnosis/Proposed Procedure Planned Operative Procedure(s): EGD Anesthesia History 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 When Was Last Pacemaker Check QUESTION #4 FULL TEXT: You/Your Family Experience fever (hyperthermia) with Anesthesia Last Oral Intake Last Oral intake: Last Oral Intake NPO since 19:00 06/18/24 07:49 Meds taken in AM with sips of No 06/18/24 07:49 water? Meds patient instructed to take am of surgery PONV PONV - energy derivatives trader: PONV - energy derivatives trader Female No 06/17/24 10:08 HX of Motion Sickness No 06/17/24 10:08 HX of N/V After Surgery No 06/17/24 10:08 Non-Smoker Yes 06/17/24 10:08 Duration of Surgery greater No 06/17/24 10:08 than 60 minutes Number of Risk Factors 1 06/17/24 10:08 PONV Score Low Risk 06/17/24 10:08 Height & Weight Height & Weight: Anesthesia: Height & Weight Height 6 ft 1 in 06/18/24 07:49 Weight: 74 kg 06/18/24 07:49 Body Mass Index (BMI) 21.5 06/18/24 07:49 Respiratory Assessment Respiratory Assessment - energy derivatives trader: Respiratory Tract Infection Hx - energy derivatives trader Hx Respiratory Tract Infection Yes: 06/08/24 06/17/24 10:08 Any additional information?: Yes Hx Respiratory Tract Infection: Yes (Patient is recovering from cold last week.) STOP Sleep Apnea STOP Sleep Apnea - energy derivatives trader: STOP Sleep Apnea - energy derivatives trader Hx Hypertension No 06/17/24 10:08 Hx Sleep Apnea No 06/17/24 10:08 CPAP BIPAP Do you snore loudly (louder No 06/17/24 10:08 than talking or can be heard Do you often feel tired/ No 06/17/24 10:08 fatigued/ sleepy during daytime? Has anyone observed you stop No 06/17/24 10:08 breathing during sleep? STOP Results Negative 06/17/24 10:08 QUESTION #5 FULL TEXT : Do you snore loudly (louder than talking or can be heard through closed doors)? 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 Specify any problems Hx of Preganancy in last 3 N/A 06/17/24 10:08 Months Nurse Filling Out Transfusion NBUCHER 06/17/24 10:08 & Questions: Date: 06/17/24 06/17/24 10:08 Time: 10:10 06/17/24 10:08 Patient unable to answer at this time (ie. confused, unrespo /Reproduction History /Reproductive History - energy derivatives trader: /Reproductive Hx- energy derivatives trader Hx Now No 06/17/24 10:08 Gestational Age (in weeks): EDC: Hx Hx Para Hx Section SAB No 06/17/24 10:08 [facility] Medical History Rash Low iron Non-smoker Schizophrenia GERD (gastroesophageal reflux disease) Autism Home Medications ?Medication ?Instructions ?Recorded ?Last Taken ?Type cholecalciferol (vitamin D3) 25 25 mcg PO DAILY Unknown History mcg (1,000 unit) capsule olanzapine 5 mg disintegrating 5 mg PO QHS #30 tabs Unknown Rx tablet omeprazole 40 mg capsule,delayed 40 mg PO DAILY #30 ca ps 12/06/22 Unknown Rx release ondansetron 8 mg disintegrating 8 mg PO Q8H PRN nausea and 09/30/23 Unknown Rx tablet vomiting #12 tabs dicyclomine 20 mg tablet 20 mg PO BID PRN abdominal p ain 12/13/23 Unknown Rx #14 tabs sucralfate 100 mg/mL oral 10 ml PO BID 8 weeks #1,120 mL 04/14/24 Unknown Rx suspension cetirizine 10 mg tablet (24Hour 10 mg PO DAILY 5 Unknown History Allergy) ferrous sulfate 220 mg (44 mg 325.6 mg PO DAILY Unknown History iron)/5 mL oral solution melatonin 10 mg capsule 10 mg PO QHS 06/17/24 Unknow n History mirtazapine 15 mg disintegrating 15 mg PO DAILY Unknown History tablet Allergy/AdvReac Type Severity Reaction Status Date / Time No Known Allergies Allergy Verified 06/17/24 10:03 Family History Mother Lung cancer Heart disease Father Lung cancer Surgical History (Updated 06/18/24 @ 08:[address] Jaren Moya MD) History of esophagogastroduodenoscopy (EGD) Social History household members: family Smoking Status: Never smoker Review of Systems (Anesthesia) ROS Narrative System reviewed and no additional complaints, except as documented.
--- NOTE | 2024-06-18 08:15 | EGD_PTH ---
PATIENT: MICHAEL SYED LOC: EN U#:[id number] AGE/SX: 49/M ROOM: RE06/18/[address]: Dr. Osman Chong DO : 1975 BED: DIS: 06/18/2024 SPEC #: [id number] RECD: 06/18/24 14:46 STATUS: GEETHA WOODS #: [id number] GRANT: 06/18/24 08:[address]: Osman Chong DEPT: SURGICAL PATHOLOGY RECD BY: Burt Bender ENTERED: 06/19/24 08:39 SP TYPE: EGD BIOPSY JULIO C DR: Carly Ramachandran, INTEGRATED [employer] IC LAYOUT DESIGNER-C Tissues: A - Duodenum, NOS B - Gastric mucous membrane Procedures: Surgery Specimen Level IV HEADER OPERATION: EGD with biopsy PRE-OP DIAGNOSIS: Abdominal pain TISSUE SUBMITTED: A- Duodenum biopsy, B- Gastric body biopsy MICROSCOPIC DIAGNOSIS A. Duodenum, biopsy: A fragment of duodenal mucosa, no pathologic diagnosis. B. Gastric body, biopsy: Moderate chronic active gastritis. See comment. MINAL. 06/22/2024 COMMENT B. The results of immunohistochemistry for Helicobacter pylori will be reported separately ([id number]). MICROSCOPIC DESCRIPTION Slides are reviewed. GROSS DESCRIPTION A. Received in fixative is one container labeled with the patient's name and designated Duodenum biopsy. The specimen consists of one irregular fragment of light collado soft tissue that measures 0.5 x 0.4 x 0.1 cm. The specimen is totally submitted in one cassette. B. Received in fixative is one container labeled with the patient's name and designated Gastric body biopsy. The specimen consists of multiple irregular fragments of light collado soft tissue that in aggregate measure 0.9 x 0.4 x 0.1 cm. The specimen is totally submitted in one cassette. 06/19/2024 TC:2 CPT:56911o7
--- NOTE | 2024-06-18 08:15 | IMM_PTH ---
PATIENT: MICHAEL SYED LOC: [place] U#:[id number] AGE/SX: 49/M ROOM: RE06/18/[address]: Dr. Osman Chong DO : 1975 BED: DIS: 06/18/2024 SPEC #: [id number] RECD: 06/19/24 08:30 STATUS: GEETHA REQ #: [id number] GRANT: 06/18/24 08:[address]: Osman Chong DEPT: IMMUNOHISTOCHEMISTRY RECD BY: David Salazar ENTERED: 06/19/24 08:30 SP TYPE: IMMUNO OTHR DR: Carly Ramachandran, FISH ICER-C Tissues: Gastric mucous membrane Procedures: H Pylori (initial) PHYSICIAN & INSTITUTION [place] [address] SPECIMEN INFORMATION: Tissue Source: B- Gastric body biopsy Clinical Info: Abdominal pain Specimen Number: [id number] CPT code: 20236 METHODOLOGY: Deparaffinized sections of prefer/formalin-fixed tissue or PAP/DQ stained slides are incubated with monoclonal/polyclonal antibodies/oligonucleotide probes. Localization is made via biotin free immunoperoxidase method. Appropriate controls are performed and reacted as expected. Results on target cell population are indicated in the following table: RESULTS: ANTIBODY / CLONE RESULT Block B H Pylori (polyclonal) positive These tests were developed and their performance characteristics determined by [facility]. They may not have been cleared or approved by the U.S. Food and Drug Administration. The FDA has determined that such clearance or approval is not necessary. The above immunohistochemical/dualISH markers are ordered and reviewed by the Pathologist. INTERPRETATION: B. Gastric body, biopsy: Positive for Helicobacter pylori organisms. 06/22/2024
--- NOTE | 2024-06-18 08:16 | PCM.HP.STD ---
HPI - General General Date of Admission: 06/18/24 Date of Service: 06/18/24 Chief Complaint: abdominal pain HPI Narrative MICHAEL SYED, is a 48 M who presents for endoscopic evaluation of pain. Pt is pretty much non verbal and is accompanied by his sister who provides the majority of the history. Pt has periods of epigastric pain and lack of appetite. He does take protonix but she feels this is no helping as he will still rub his epigastrium. He has had an EGD before many years ago. He does belch often and loudly. His stomach also will look bloated on occasion in his sister opinion. He has constipation alternating with looser stools. This is sporadic and hard to predict therefore he does not take anything for the constipation. [facility] Medical History Rash Low iron Non-smoker Schizophrenia GERD (gastroesophageal reflux disease) Autism Home Medications ?Medication ?Instructions ?Recorded ?Last Taken ?Type cholecalciferol (vitamin D3) 25 25 mcg PO DAILY 12/06/22 Unknown History mcg (1,000 unit) capsule olanzapine 5 mg disintegrating 5 mg PO QHS #30 tabs 12/06/22 Unknown Rx tablet omeprazole 40 mg capsule,delayed 40 mg PO DAILY #30 caps 12/06/22 Unknown Rx release ondansetron 8 mg disintegrating 8 mg PO Q8H PRN nausea and 09/30/23 Unknown Rx tablet vomiting #12 tabs dicyclomine 20 mg tablet 20 mg PO BID PRN abdominal pain 12/13/23 Unknown Rx #14 tabs sucralfate 100 mg/mL oral 10 ml PO BID 8 weeks #1,120 mL 04/14/24 Unknown Rx suspension cetirizine 10 mg tablet (24Hour 10 mg PO DAILY 06/17/24 Unknown History Allergy) ferrous sulfate 220 mg (44 mg 325.6 mg PO DAILY 06/17/24 Unknown History iron)/5 mL oral solution melatonin 10 mg capsule 10 mg PO QHS 06/17/24 Unknown History mirtazapine 15 mg disintegrating 15 mg PO DAILY 06/17/24 Unknown History tablet Allergy/AdvReac Type Severity Reaction Status Date / Time No Known Allergies Allergy Verified 06/17/24 10:03 Family History Mother Lung cancer Heart disease Father Lung cancer Surgical History History of esophagogastroduodenoscopy (EGD) Social History household members: family Smoking Status: Never smoker ROS Constitutional Constitutional: Denies fatigue, fever(s), poor appetite, weight gain or weight loss Gastrointestinal Gastrointestinal: Denies belching, bloating, change in bowel habits, change in stool character, chewing difficulty, coffee ground emesis, constipation, cramping, diarrhea, dyspepsia, dysphagia, early satiety, excessive flatus, fecal incontinence, heartburn, hematemesis, hematochezia, hemorrhoids, loose stools, melena, nausea, odynophagia, rectal bleeding, tenesmus, vomiting or weight changes Vital Signs Vital Signs Vital Signs: 06/18/24 07:49 06/18/24 07:49 06/18/24 08:09 Temperature 98.3 F 98.3 F Temperature Source Temporal Pulse Rate 71 71 Respiratory Rate 18 18 Respiratory Pattern Normal Blood Pressure 128/90 H 128/90 H Blood Pressure Mean 102 Blood Pressure Source Monitor Blood Pressure Position Semi-Fowlers Blood Pressure Location Left Arm Pulse Ox 96 96 Oxygen Delivery Method Room Air Room Air Weight Weight: 163 lb 2.273 oz Body Mass Index (BMI) 21.5 Physical Exam Const alert, oriented x3, no apparent distress and healthy appearing General Appearance: cooperative GI normal to inspection, nondistended, normoactive bowel sounds, soft to palpation, non-tender and non-distended Percussion: normal to percussion Rectal Exam: deferred Assessment & Plan Assessment/Plan (1) Abdominal pain: PLAN: Assessment and Plan (1) Gastroesophageal reflux disease: (2) Constipation: Status: Acute Plan: This is a 48 yo male pt with hx of autism and schizophrenia. His sister provides the hx. He has had issues with epigastric pain for some time. I will order an EGD to assess his upper GI tract for gastritis, esophagitis or ulcer. I will prescribe him sucralfate in the meantime. He does also have alternating bowels. I do not feel a colonoscopy would give us much information therefore I do not feel he needs to undergo at this time as the prep would be difficult for him. His sister is agreeable to this as she makes all this medical decisions. -EGD -Continue PPI -Sucralfate -Consider colonoscopy in the future
--- NOTE | 2024-06-18 08:45 | OP.EGD_ITS ---
Patient Name: Arvind Domínguez Procedure Date: 06/18/2024 8:21 AM Date of : 1975 Age: 49 Procedure: Upper GI endoscopy Indications: Epigastric abdominal pain Providers: Osman Chong DO Referring MD: Aquilino Patel Medicines: Monitored Anesthesia Care Patient Profile: This is a 49 year old male. Refer to note in patient chart for documentation of history and physical. Patient has symptoms of chronic abdominal cramping, chronic abdominal distention and chronic epigastric abdominal pain. Complications: No immediate complications. Procedure: Pre-Anesthesia Assessment: - Prior to the procedure, a History and Physical was performed, and patient medications and allergies were reviewed. The patient is competent. The risks and benefits of the procedure and the sedation options and risks were discussed with the patient. All questions were answered and informed consent was obtained. Patient identification and proposed procedure were verified by the physician in the pre-procedure area. Mental Status Examination: alert and oriented. Airway Examination: normal oropharyngeal airway and neck mobility. Respiratory Examination: clear to auscultation. CV Examination: normal. Prophylactic Antibiotics: The patient does not require prophylactic antibiotics. Prior Anticoagulants: The patient has taken no anticoagulant or antiplatelet agents except for NSAID medication. ASA Grade Assessment: II - A patient with mild systemic disease. After reviewing the risks and benefits, the patient was deemed in satisfactory condition to undergo the procedure. The anesthesia plan was to use monitored anesthesia care (MAC). Immediately prior to administration of medications, the patient was re-assessed for adequacy to receive sedatives. The heart rate, respiratory rate, oxygen saturations, blood pressure, adequacy of pulmonary ventilation, and response to care were monitored throughout the procedure. The physical status of the patient was re-assessed after the procedure. After obtaining informed consent, the endoscope was passed under direct vision. Throughout the procedure, the patient's blood pressure, pulse, and oxygen saturations were monitored continuously. The Endoscope was introduced through the mouth, and advanced to the second part of duodenum. The upper GI endoscopy was accomplished without difficulty. The patient tolerated the procedure well. Scope In: 8:34:28 AM Scope Out: 8:36:52 AM Total Procedure Duration Time 0 hours 2 minutes 24 seconds Findings: The examined esophagus was normal. Patchy mildly erythematous mucosa without bleeding was found in the gastric body and in the gastric antrum. Biopsies were taken with a cold forceps for histology. Verification of patient identification for the specimen was done. Estimated blood loss was minimal. Biopsies were taken with a cold forceps for Helicobacter pylori testing. Verification of patient identification for the specimen was done. Estimated blood loss was minimal. Patchy mildly erythematous mucosa without active bleeding and with no stigmata of bleeding was found in the duodenal bulb. Impression: - Normal esophagus. - Erythematous mucosa in the gastric body and antrum. Biopsied. - Erythematous duodenopathy. Recommendation: - Discharge patient to home. - Resume previous diet. - Continue present medications. Procedure Code(s): --- Professional --- 54854, Esophagogastroduodenoscopy, flexible, transoral; with biopsy, single or multiple CPT copyright 2021 [employer]. All rights reserved. The codes documented in this report are preliminary and upon cyber forensic specialist review may be revised to meet current compliance requirements. Osman Chong DO 06/18/2024 8:44:37 AM This report has been signed electronically. Number of Addenda: 0 Note Initiated On: 06/18/2024 8:21 AM
--- NOTE | 2024-06-18 08:45 | OP.CCLET_ITS ---
06/18/2024 Aquilino Patel Re : Upper GI endoscopy procedure for Arvind Domínguez Dear Madie This procedure was performed on May. My impressions and recommendations are as follows: Impressions : - Normal esophagus. - Erythematous mucosa in the gastric body and antrum. Biopsied. - Erythematous duodenopathy. Recommendations : - Discharge patient to home. - Resume previous diet. - Continue present medications. My findings are described in the full procedure note, which is enclosed. If I can be of further assistance, please feel free to contact me at . Sincerely, Osman Chong, 06/18/2024 8:44:37 AM This report has been signed electronically.
--- NOTE | 2024-06-18 08:46 | PCM.POST.ANE ---
Anesthesia: Postop Eval I Current Vital Signs Temperature: 98.4 F Pulse Rate: 74 Blood Pressure: 89/74 Respiratory Rate: 14 Pulse Ox: 97 Oxygen Delivery Method: Room Air Assessment Airway patent: Yes Spontaneous unlabored respirations: Yes Mental status: Asleep nausea: No Vomiting: No Anesthesia Complication: No Fluid Hydration Crystalloid volume administer (ml): 30 Total IV fluid infused: 30 Progress Note Anesthesia document: Postop Eval 1 completed: Yes
--- NOTE | 2024-06-18 11:38 | PCM.POSTANE2 ---
Anesthesia Postop Eval I Sum Postop Eval Completion status Anesthesia document: Postop Eval 1 completed: Yes Anesthesia Postop Eval I Summary Anesthesia Postop Eval I Summary: Anesthesia Postop Eval I: Assessment Summary Airway patent Yes 06/18/24 08:47 [email or web address] Spontaneous unlabored Yes 06/18/24 08:47 [email or web address] respirations Mental status Asleep 06/18/24 08:47 [email or web address] nausea No 06/18/24 08:47 [email or web address] Vomiting No 06/18/24 08:47 [email or web address] Anesthesia Postop Eval I: Fluid Summary Crystalloid volume administer 30 06/18/24 08:47 [email or web address] (ml) Colloids volume administered ( ml) Blood Product volume administered (ml) Total IV fluid infused 30 06/18/24 08:47 [email or web address] Anesthesia Postop Eval I: Summary Notes Anesthesia Complication No 06/18/24 08:47 [email or web address] Anesthesia Complication Comment: Post-operative progress note Anesthesia: Postop Eval II Evaluation Mental status: Awake and Calm Pain Level: 0 (Difficult to assess because patient is mostly nonverbal. He does not appear to be in any distress.) nausea: No Vomiting: No Complications Anesthesia Complication: No
== END 2024-06-18 09:25 | disposition home or self-care (01) ==
LOC: EN 07:17 → AC 07:19
PROVIDERS: PCP Nurse Practitioner Family; Referring Provider Nurse Practitioner Family; Visit Provider Internal Medicine Gastroenterology
PROC: 0DJ08ZZ Inspection of Upper Intestinal Tract, Via Natural or Artificial Opening Endoscopic (ICD-10-PCS; CPT 43235; principal; 2024-06-18 08:10)
DX: R10.13 Epigastric pain (principal); F20.9 Schizophrenia, unspecified; K59.00 Constipation, unspecified; K21.9 Gastro-esophageal reflux disease without esophagitis; B96.81 Helicobacter pylori [H. pylori] as the cause of diseases classified elsewhere; Z79.899 Other long term (current) drug therapy; K31.89 Other diseases of stomach and duodenum; K29.70 Gastritis, unspecified, without bleeding
CPT/HCPCS: 43239; 88305; 88342; A4216; J2405

== ENCOUNTER 2024-07-07 16:36 | Emergency (ER) | payer MEDICARE, MEDICAID, SELFPAY ==
[2024-07-07 16:38] VITALS: BP 127/89; PULSE 105; RESP 20; TEMP 37.7; O2SAT 97; BMI 20.9
--- NOTE | 2024-07-07 21:17 | ED.RN ---
RN CALLED PT NAME TO UPDATE VITAL SIGNS, NO ANSWER AT THIS TIME.
== END 2024-07-07 23:40 | disposition left against medical advice (07) ==
LOC: ED 23:40
PROVIDERS: PCP Nurse Practitioner Family
DX: J00 Acute nasopharyngitis [common cold] (principal)

== ENCOUNTER → 2024-11-03 | Outpatient (CLI) | payer MEDICARE, MEDICAID, SELFPAY ==
[2024-11-09 11:08] LABS: Alternaria tenuis <0.10 kU/L (Class 0); Ash, White <0.10 kU/L (Class 0); Aspergillus fumigatus <0.10 kU/L (Class 0); Bermuda Grass <0.10 kU/L (Class 0); Birch <0.10 kU/L (Class 0); Black Walnut <0.10 kU/L (Class 0); Cat Hair / Dander,Stand <0.10 kU/L (Class 0); Cedar, Mountain <0.10 kU/L (Class 0); Cladosporium herbarum <0.10 kU/L (Class 0); Cockroach, American <0.10 kU/L (Class 0); Cottonwood <0.10 kU/L (Class 0); D farinae Mite <0.10 kU/L (Class 0); D pteronyssinus <0.10 kU/L (Class 0); Dog Epithelia <0.10 kU/L (Class 0); Elm, American White <0.10 kU/L (Class 0); Immunoglobulin E 51 IU/mL (6-495); Maple/Box Elder <0.10 kU/L (Class 0); Mouse Urine <0.10 kU/L (Class 0); Mulberry, White <0.10 kU/L (Class 0); Oak, White <0.10 kU/L (Class 0); Pecan <0.10 kU/L (Class 0); Penicillium Notatum <0.10 kU/L (Class 0); Pigweed, Rough <0.10 kU/L (Class 0); Ragweed, Short/Common <0.10 kU/L (Class 0); Russian Thistle <0.10 kU/L (Class 0); Sheep Sorrel <0.10 kU/L (Class 0); Sycamore, American <0.10 kU/L (Class 0); Timothy Grass <0.10 kU/L (Class 0)
== END | disposition home or self-care (01) ==
LOC: LAB 16:40
PROVIDERS: PCP Nurse Practitioner Family
DX: T78.40XA Allergy, unspecified, initial encounter (principal)
CPT/HCPCS: 36415; 82785; 86003

== ENCOUNTER 2024-12-09 14:17 | Emergency (ER) | payer MEDICARE, MEDICAID, SELFPAY ==
[2024-12-09 14:18] VITALS: BP 140/94; PULSE 90; RESP 16; TEMP 36.6; O2SAT 98; BMI 21.3
--- NOTE | 2024-12-09 14:30 | EX.ED.DYSGE1 ---
HPI History of Present Illness Chief Complaint: General Illness Narrative Narrative: History and physical limited secondary to autism and schizophrenia. Per city controller and sister who is his legal guardian, over the last week he has had behavioral problems where he was hitting his head against the wall and is more agitated. She states that he has been pulling at his right ear as well but 2 weeks ago she took him to urgent care and they said that there was no evidence of infection. He has not had any fevers. They present him to the emergency department not knowing if this is an exacerbation more of his autism and behavioral change versus something physical. His sister noticed that his urine was dark over the last week, but he has been drinking more fluids and that has cleared up. Essentially, they are presenting him for medical screening. [facility] Medical History Rash Low iron Non-smoker Schizophrenia GERD (gastroesophageal reflux disease) Autism Home Medications Medication Instructions Recorded Last Taken Type ferrous sulfate 220 mg (44 mg 325.6 mg PO .COMPLEX 06/17/24 12/07/24 History iron)/5 mL oral solution mirtazapine 15 mg disintegrating 15 mg PO DAILY 06/17/24 12/08/24 History tablet esomeprazole magnesium 40 mg 40 mg PO QDAY #30 ea 09/03/24 12/09/24 Rx granules delayed release for susp ascorbic acid (vitamin C) 500 mg 1 g PO DAILY 12/09/24 12/09/24 History chewable tablet (Acerola C) atorvastatin 20 mg/5 mL (4 mg/mL) 20 mg PO DAILY 12/09/24 12/09/24 History oral suspension (AtorvaliQ) calcium citrate 760 mg PO DAILY 12/09/24 12/09/24 History ergocalciferol (vitamin D2) 1,250 1,250 mcg PO QWEEK 12/09/24 12/08/24 History mcg (50,000 unit) capsule levocetirizine 2.5 mg/5 mL oral 2.5 mg PO DAILY 12/09/24 12/09/24 History solution (Xyzal) magnesium 250 mg tablet 250 mg PO DAILY 12/09/24 12/09/24 History mecobalamin (vitamin B12) 1,000 1,000 mcg PO DAILY 12/09/24 12/09/24 History mcg chewable tablet olanzapine 15 mg disintegrating 15 mg PO DAILY 12/09/24 12/08/24 History tablet pedi nutrition,iron,lact-free 5 1 ea PO DAILY 12/09/24 12/09/24 History gram-180 kcal/36 gram oral powder (Else Toddler [place]) Allergy/AdvReac Type Severity Reaction Status Date / Time No Known Allergies Allergy Verified 12/09/24 14:20 Family History Mother Lung cancer Heart disease Father Lung cancer Surgical History History of esophagogastroduodenoscopy (EGD) Social History household members: family Smoking Status: Never smoker ROS ROS ED ROS Narrative Review of systems positive for behavioral change, increased agitation, more aggressive behavior. No fevers or chills, no nausea or vomiting. Dark urine last week but that has resolved. Additionally, complained of ear pain for 2 weeks and tugging at right ear. EXAM Physical Exam Narrative Exam Narrative: Physical exam limited secondary to autism. HEENT examination grossly unremarkable. No pain with movement of right auricle, no TM erythema. No mastoid tenderness or erythema. Neck soft and supple without meningismus. Moist mucous membranes. Cardiovascular examination regular rate and rhythm lungs clear to auscultation bilaterally. Abdomen soft, nontender, with positive bowel sounds. No guarding or rebound. Neurological examination nonfocal, nonlateralizing, consistent with autism. Cooperative. Const Vital Signs: 12/09/24 14:18 12/09/24 15:59 12/09/24 15:59 Temperature 97.9 F 97.8 F Temperature Source Oral Oral Pulse Rate 90 90 Respiratory Rate 16 16 Respiratory Effort Normal Respiratory Pattern Normal Blood Pressure 140/94 H 140/94 H Blood Pressure Mean 109 109 Pulse Ox 98 98 Oxygen Delivery Method Room Air Room Air 12/09/24 16:00 12/09/24 18:00 Temperature 97.8 F Temperature Source Oral Pulse Rate 69 73 Respiratory Rate 15 16 Respiratory Effort Respiratory Pattern Blood Pressure 134/88 H 129/90 H Blood Pressure Mean 103 103 Pulse Ox 97 99 Oxygen Delivery Method Room Air Room Air MDM MDM MDM Narrative Medical decision making narrative: Differential diagnosis includes but not limited to dehydration versus other electrolyte abnormality versus UTI versus anemia versus behavioral problems with history of autism and schizophrenia. Will perform medical screening exam/laboratories in the form of CBC with differential and BMP and UA. Patient will be bolused normal saline. I do not feel he requires antibiotics for an otitis media. I reviewed his laboratory work and he has normal white count of 7.6 with hemoglobin normal 13.8, hematocrit 42.3, platelet count normal at 227. BMP shows no evidence of dehydration, sodium normal at 137 with BUN of 14 and creatinine 0.85. Glucose appropriately elevated at 139 with normal anion gap of 11. It took a little bit of time for the patient to produce a urine sample. This was sent and there is no evidence of infection with 0-5 WBCs and negative ketones, negative nitrites and negative leukocytes. I do not feel he needs antibiotics. I feel that his reported behavior may be more psychiatric or behavioral problem. His family does state that sometimes younger family members require more attention and that it may be more of a jealousy type situation. Regardless, I do feel that he can be discharged to follow-up with his primary care provider and that he does not require observation or admission or psychiatric evaluation at this time. Return instructions reviewed. Disposition is discharged home in stable condition. History & Record Review Discussion w/independent historian: Family (Sister and guardian) and Other ([employer]) Lab Data Attestation: I reviewed the patient's lab results. Labs: Laboratory Results - last 24 hr 12/09/24 12/09/24 14:53 17:31 WBC 7.6 RBC 4.98 Hgb 13.8 Hct 42.3 MCV 84.9 MCH 27.7 MCHC 32.6 RDW Std Deviation 41.1 RDW Coeff of Dc 13.2 Plt Count 227 MPV 11.3 Immature Gran % (Auto) 0.400 Neut % (Auto) 70.1 H Lymph % (Auto) 17.7 L Holt % (Auto) 8.0 Eos % (Auto) 3.5 Baso % (Auto) 0.3 Absolute Neuts (auto) 5.3 Absolute Lymphs (auto) 1.35 Nucleated RBC % 0 Sodium 137 Potassium 4.3 Chloride 104 Carbon Dioxide 21.7 Anion Gap 11 BUN 14 Creatinine 0.85 Estim Creat Clear Calc 110.26 Est GFR (MDRD) Non-Af 107 BUN/Creatinine Ratio 16.8 Glucose 139 H Calcium 9.6 Urine Color Straw Urine Clarity Clear Urine pH 7.[address] [place] 1.005 Urine Protein Negative Urine Glucose (UA) Normal Urine Ketones Negative Urine Occult Blood Negative Urine Nitrite Negative Urine Bilirubin Negative Urine Urobilinogen Normal Ur Leukocyte Esterase Negative Urine RBC 0-5 SEEN Urine WBC 0-5 SEEN Ur Squamous Epith Cells 0-5 SEEN Urine Bacteria 0 SEEN Urine Mucus 0 SEEN Discharge Plan Triage Chief Complaint: General Illness ED Provider: Marcus Delatorre Dx/Rx/DC Orders Clinical Impression: Autism, Agitation, Aggressive behavior, Encounter for medical screening examination Instructions: How to Control Your Temper, ED Screening Exam Medical Nonurgent Prescriptions: No Action mirtazapine 15 mg tablet,disintegrating 15 mg PO DAILY Patient Comments: DISSOLVE 1 (ONE) TABLET ON TOP OF TONGUE, THEN SWALLOW IN THE EVENING BEFORE SLEEP ferrous sulfate 220 mg (44 mg iron)/5 mL solution 325.6 mg PO .COMPLEX Rx Instructions: 325.6 mg orally 3XW; ergocalciferol (vitamin D2) 1,250 mcg (50,000 unit) capsule 1,250 mcg PO QWEEK olanzapine 15 mg tablet,disintegrating 15 mg PO DAILY AtorvaliQ 20 mg/5 mL (4 mg/mL) suspension 20 mg PO DAILY Patient Comments: [NO ORIGINAL SIG] ascorbic acid (vitamin C) [Acerola C] 500 mg tablet,chewable 1 g PO DAILY Else Toddler [place] 5 gram-180 kcal/36 gram powder 1 ea PO DAILY levocetirizine [Xyzal] 2.5 mg/5 mL solution 2.5 mg PO DAILY mecobalamin (vitamin B12) 1,000 mcg tablet,chewable 1,000 mcg PO DAILY magnesium 250 mg tablet 250 mg PO DAILY calcium citrate 760 mg calcium /3.5 gram granules 760 mg PO DAILY esomeprazole magnesium [address] for susp in packet 40 mg PO QDAY Qty: 30 1RF Primary Care Provider: Carly Ramachandran Referrals: Carly Ramachandran, WASHROOM CLEANER-C [Primary Care Provider] - As soon as possible Activity Restrictions/Additional Instructions: Follow-up with your primary care provider soon as possible. Return with new or worsening symptoms. Your laboratory tests and urinalysis were negative today. His aggressive behavior may be more secondary to a psychiatric or behavioral problem. Print Language: Telugu Disposition Disposition: Home, Self Care
[2024-12-09 15:05] LABS: Hematocrit 42.3 % (40-54); Hemoglobin 13.8 g/dL (13.0-16.5); Immature Granulocytes Count 0.030 X10^3/uL (0.0-0.0); Mean Corp Hgb Conc 32.6 g/dL (32-36); Mean Corpuscular Volume 84.9 fL (80-94); Mean Platelet Vol. 11.3 fl (6.2-12.0); NRBC Flagged by Analyzer 0 % (0-5); Platelet Count 227 K/mm3 (150-450); RBC Distribution Width CV 13.2 % (11.6-14.6); RBC Distribution Width SD 41.1 fl (35.1-43.9); Red Blood Count 4.98 M/mm3 (4.6-6.2); White Blood Count 7.6 K/mm3 (4.4-11.0)
[2024-12-09] MEDS: 0.9% Normal Saline (1000mL) 1,000 ML 999 ML IV (15:26)
[2024-12-09 15:35] LABS: Anion Gap 11 (5-15); BUN 14 mg/dL (4-19); BUN/Creat Ratio 16.8 RATIO (10-20); Calcium,Total 9.6 mg/dL (7.6-11.0); Carbon Dioxide 21.7 mmol/L (21.0-32.0); Chloride 104 mmol/L (98-108); Estimated Creatinine Clearance 110.26 ml/min (50-250); Glucose 139 mg/dL (70-99); Potassium 4.3 mmol/L (3.3-5.1)
--- NOTE | 2024-12-09 15:40 | CM.ED ---
Social Work SW introduced self to patient sister. SW verified that sister was patients legal guardian and asked for paperwork to be brought in at her convenience. No further needs identified at this time. Laura Ga, DERRICK BUILDER, SCHOOL ADMISSIONS REPRESENTATIVE
[2024-12-09 15:59] VITALS: BP 140/94; PULSE 90; RESP 16; TEMP 36.6; O2SAT 98
[2024-12-09 16:00] VITALS: BP 134/88; PULSE 69; RESP 15; TEMP 36.6; O2SAT 97
[2024-12-09 17:43] LABS: Mucous, Urine 0 SEEN /hpf (<or=2+)
[2024-12-09 18:00] VITALS: BP 129/90; PULSE 73; RESP 16; O2SAT 99
[2024-12-09 18:08] LABS: Color, Urine Straw (Yellow); Glucose, Dipstick Normal (Normal); Ketone-Dipstick Negative (Negative); Leukocyte Esterase-Dipstick Negative /ul (Negative); Nitrite-Dipstick Negative (Negative); Occult Blood-Urine Negative /ul (Negative); Protein-Dipstick Negative (Negative); Specific Gravity, Urine 1.005 (1.002-1.030); Urine Bilirubin Dipstick Negative (Negative)
--- NOTE | 2024-12-09 19:21 | ED.RN ---
Called laboratory for results of UA being delayed. Spoke with Amla, was told she is very busy and would result when she is available to. Dr. Delatorre notified, no new orders at this time.
[2024-12-09 19:35] LABS: Red Blood Cells-Urine 0-5 SEEN /hpf (0-5); Squamous Epithelial Cells - UA 0-5 SEEN /hpf (0-5)
[2024-12-09 19:59] VITALS: BP 128/89; PULSE 79; RESP 16; TEMP 36.6; O2SAT 99
== END 2024-12-09 20:00 | disposition home or self-care (01) ==
PROVIDERS: Emergency Provider Emergency Medicine; PCP Nurse Practitioner Family; Visit Provider Emergency Medicine
DX: F84.0 Autistic disorder (principal); F20.9 Schizophrenia, unspecified; R45.6 Violent behavior; K21.9 Gastro-esophageal reflux disease without esophagitis
CPT/HCPCS: 80048; 81001; 85025; 96360; 96361; 99283; A4216

== ENCOUNTER → 2025-02-11 | Outpatient (CLI) | payer MEDICARE, MEDICAID, SELFPAY ==
--- NOTE | 2025-02-11 13:55 | RAD_ITS ---
PROCEDURE: ABDOMEN SINGLE VIEW 02/11/2025 REASON FOR EXAM: ABD PAIN TECHNIQUE: Procedure Code: RADABD Modality: DX Procedure: ABDOMEN SINGLE VIEW COMPARISON: None. FINDINGS: There is a nonobstructive bowel gas pattern. There are no abnormal soft tissue calcifications or radiopaque foreign bodies. There are no significant bony abnormalities. RAD/Abdomen Single View IMPRESSION: NO ACUTE FINDINGS Reading Location: [id number]
--- OUTSIDE RECORDS SUMMARY | 2025-02-11 14:43 | XMS RPT_ITS | CCD ---
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 Michelle Plaza Referring Unav ailable Keenan, Dr. Michelle Plaza Primary Care Unav ailable Keenan, Dr. Michelle Plaza Attending Unav ailable Keenan, Dr. Michelle Plaza Referring Unav ailable Keenan, Dr. Michelle Plaza Primary Care Unav ailable Keenan, Dr. Michelle Plaza Attending Unav ailable Keenan, Dr. Michelle Plaza Referring Unav ailable Keenan, Dr. Michelle Plaza Primary Care Unav ailable Keenan, Dr. Michelle Plaza Attending Unav ailable Keenan, Dr. Michelle Plaza Primary Care Unav ailable Keenan, Dr. Michelle Plaza Attending Unav ailable Keenan, Dr. Michelle Plaza Referring Unav ailable FARIDEH PRESCOTT Attending Unavailable MICHELLE NEELY Primary Care Unavailable MICHELLE NEELY Attending Unavailable MICHELLE NEELY Primary Care Unavailable MICHELLE NEELY Attending Unavailable MICHELLE NEELY Primary Care Unavailable Michelle Neely MD Primary Care Provider Michelle Neely MD Unavailable Sina FLOOR COVERING CONTRACTOR.Niraj LEWIS Primary Care Provider Sina FLOOR COVERING CONTRACTOR.UTILITY ENGINEER, Niraj Primary Care Provider Knoble FLOOR COVERING CONTRACTOR-UTILITY ENGINEER, Niraj L Primary Care Provide r JORY ANDERSON Attending Unavailable KNOBLE, NIRAJ L Primary Care Unavailable SELF, SELF Referring Unavailable STRIEB, RILEY Referring Unavailable STRIEB, RILEY Attending Unavailable KNOBLE, NIRAJ L Primary Care Unavailable SANGITA CELESTIN Attending Unavailable KNOBLE, NIRAJ L Primary Care Unavailable SELF, SELF Referring Unavailable Knoble CORPORATE BUYER-C, Niraj Primary Care Provider [phone] Provider, Ed Physician Attending Provider Sachin sampson Provider, Ed Physician Emergency Provider Sachin Andino CORPORATE BUYER-C, Niraj Referring Provider Sariah Christina Attending Provider Knprachi CORPORATE BUYER-C, Niraj Primary Care Provider Abdias Joshua Attending Provider [phone] Abdias Joshua Referring Provider [phone] Marcus Delatorre MD Emergency Provider CADY WALDRON Attending Unavaila ble KNOBLE, NIRAJ Primary Care Unavailable KNOBLE, NIRAJ Primary Care Unavailable KNOBLE, NIRAJ Referring Unavailable KNOBLE, NIRAJ Primary Care Unavailable KNOBLE, NIRAJ Referring Unavailable KNOBLE, NIRAJ Primary Care Unavailable KNOBLE, NIRAJ Referring Unavailable KNOBLE, NIRAJ Primary Care Unavailable KNOBLE, NIRAJ Attending Unavailable KNOBLE, NIRAJ Primary Care Unavailable SELF Referring Unavailable KNOBLE, NIRAJ Attending Unavailable KNOBLE, NIRAJ Primary Care Unavailable PODLOGAR, DONNA Attending Unavailable KNOBLE, NIRAJ Primary Care Unavailable PODLOGAR, DONNA Referring Unavailable KNOBLE, NIRAJ Primary Care Unavailable KNOBLE, NIRAJ Attending Unavailable KNOBLE, NIRAJ Primary Care Unavailable KNOBLE, NIRAJ Primary Care Unavailable SELF Referring Unavailable KNOBLE, NIRAJ Attending Unavailable KNOBLE, NIRAJ Primary Care Unavailable KNOBLE, NIRAJ Referring Unavailable ALIZE VILLA Attending Unavailable KNOBLE, NIRAJ Primary Care Unavailable KNOBLE, NIRAJ Primary Care Unavailable KNOBLE, NIRAJ Attending Unavailable KNOBLE, NIRAJ Primary Care Unavailable LORRAINE DONG Attending Unavailable KNOBLE, NIRAJ Primary Care Unavailable JANETT PERDOMO Attending Unavailable KNOBLE, NIRAJ Primary Care Unavailable KNOBLE, NIRAJ Attending Unavailable KNOBLE, NIRAJ Primary Care Unavailable KNOBLE, NIRAJ Attending Unavailable KNOBLE, NIRAJ Primary Care Unavailable KNOBLE, NIRAJ Attending Unavailable KNOBLE, NIRAJ Primary Care Unavailable KNOBLE, NIRAJ Referring Unavailable KNOBLE, NIRAJ Primary Care Unavailable KNOBLE, NIRAJ Referring Unavailable KNOBLE, NIRAJ Primary Care Unavailable KNOBLE, NIRAJ Referring Unavailable Knoble, Niraj Primary Care Unavailable Knoble, Niraj Referring Unavailable FriendOsman Consulting Unavailable FriendOsman Attending Unavailable Knoble, Niraj Referring Unavailable Knoble, Niraj Primary Care Unavailable Sariah Mcdonald Attending Unavailable Tamara, Sariah Attending Unavailable Knoble, Niraj Referring Unavailable Knoble, Niraj Primary Care Unavailable Sariah Mcdonald Attending Unavailable Knoble, Niraj Primary Care Unavailable Knoble, Niraj Referring Unavailable Knoble, Niraj Primary Care Unavailable Knoble, Niraj Referring Unavailable FriendOsman Attending Unavailable OrozcoAbdias Attending Unavailable OrozcoAbdias Referring Unavailable Knoble, Niraj Primary Care Unavailable Marcus Delatorre Attending Unavailable Knoble, Niraj Primary Care Unavailable Knoble, Niraj Primary Care Unavailable Provider, Ed Physician Attending Unavailab Sariah Carr Attending Unavailable Knoble, Niraj Referring Unavailable Knoble, Niraj Primary Care Unavailable Medications Current Medications Medication Drug Class(es) Dates Sig (Normalized) Sig (Original) ascorbic acid 500 mg chewable tablet (20 sources) Vitamin C Start: 12-09-2024 take 1 g by mouth once daily Ascorbic Acid (Vitamin C) (Acerola C) 500 mg tablet,chewable Active 1 g PO DAILY December 09, 2024 12:00am Start: 07-26-2023 take 1 tablet by jose th once daily ascorbic acid, vitamin C, (VITAMIN C) 500 mg tablet Indications: Iron deficiency Take 1 tablet by mouth once daily. 90 tablet 1 07/26/2023 Active Comment on above: Take 1 tablet by jose th once daily. atorvastatin 20 mg oral tablet (15 sources) HMG-CoA Reductase Inhibitor Start: take 20 mg by mouth once daily Atorvastatin (Atorvaliq) 20 mg/5 mL (4 mg/mL) suspension Active 20 mg PO DAILY December 09, 2024 12:00am Start: 08-14-2024 take 5 mL by mouth once daily atorvastatin (ATORVALIQ) 20 mg/5 mL (4 mg/mL) suspension Indications: Hyperlipidemia, mixed Take 5 mL by mouth once daily. 150 mL 5 08/14/2024 Active calcium carbonate 500 mg chewable tablet (20 sources) Start: 07-30-2023 take 2 tablets by mouth once daily calcium carbonate (CALCIUM ANTACID) 500 mg chew Indications: GERD without esophagitis Take 2 tablets by mouth once daily. 07/30/2023 Active Comment on above: Take 2 tablets by mo uth once daily. Calcium Citrate 760 mg calcium /3.5 gram granules (1 source) Start: 12-09-2024 take 760 mg by mouth once daily Calcium Citrate 760 mg calcium /3.5 gram granules Active 760 mg PO DAILY December 09, 2024 12:00am cephalexin 50 mg/ml oral suspension (4 sources) Cephalosporin Antibacterial Start: 01-12-2025 End: 01-17-2025 take 10 mL by mouth twice daily cephALEXin (KEFLEX) 250 mg/5 mL suspension Take 10 mL by mouth two times a day for 5 days. 100 mL 01/12/2025 01/17/2025 Active Start: 01-12-2025 End: 01-12-2025 take 1 capsule by mouth twice daily cephALEXin (KEFLEX) 500 mg capsule Take 1 capsule by mouth two times a day for 5 days. 10 capsule 01/12/2025 01/12/2025 Discontinued ciprofloxacin 3 mg/ml / dexamethasone 1 mg/ml otic suspension (4 sources) Corticosteroid, Quinolone Antimicrobial Start: 03-13-2024 End: 03-20-2024 ciprofloxacin-dexAMETHasone (CIPRODEX) 0.3-0.1 % otic suspension Indications: Acute otitis externa of left ear, unspecified type Use 4 Drops in the left ear two times a day for 7 days. 7.5 mL 03/13/2024 03/20/2024 Active diphenhydrAMINE hydrochloride 2.5 mg/ml oral solution (20 sources) Histamine-1 Receptor Antagonist Start: 10-28-2023 M-Dryl 12.5 MG/5ML solution TAKE 10-20ML AT BEDTIME NEEDED 10/28/2023 Active Start: 06-25-2023 take 1-2 capsules by mouth at bedtime as needed diphenhydrAMINE (BENADRYL) 25 mg capsule Indications: Rash Take 1-2 capsules by mouth at bedtime as needed. 30 capsule 06/25/2023 Active Comment on above: Take 1-2 capsules by mouth at bedtime as needed. ergocalciferol 1.25 mg oral capsule (20 sources) Provitamin D2 Compound Start: 07-26-19 End: 08-15-19 take 1 capsule by mouth every week ergocalciferol 50,000 unit capsule (VITAMIN D2, DRISDOL) Indications: Vitamin D deficiency Take 1 capsule by mouth one time a week. 12 capsule 3 08/14/2024 Active Comment on above: Take 1 capsule by [facility] one time a week. escitalopram 1 mg/ml oral solution (20 sources) Serotonin Reuptake Inhibitor Start: 10-28-19 End: 04-02-20 take 5 mL by mouth once daily Escitalopram Oxalate 5 MG/5ML Solution Take 5 (FIVE) Milliliter By mouth once daily 10/28/2023 Active esomeprazole 40 mg granules for oral suspension (6 sources) Proton Pump Inhibitor Start: 08-27-19 End: 09-04-19 take 40 mg by mouth once daily Esomeprazole Magnesium [address] for susp in packet Active 40 mg PO daily 30 September 03, 2024 11:26am ferrous sulfate 44 mg/ml oral solution (6 sources) Start: 06-17-19 Ferrous Sulfate 220 mg (44 mg iron)/5 mL solution Active 325.6 mg PO .June 17, 2024 1:00am 325.6 mg orally 3XW; Start: 07-26-2023 End: 08-06-2023 take 1 tablet by mouth once daily ferrous sulfate 325 mg (65 mg iron) tablet Indications: Iron deficiency Take 1 tablet by mouth once daily. 90 tablet 0 07/26/2023 08/06/2023 Discontinued Comment on above: Take 1 tablet by [facility] once daily. ferrous sulfate 220 mg/5 mL elix (20 sources) Start: 08-14-2024 take 7.4 mL by mouth once daily ferrous sulfate 220 mg/5 mL elix Indications: Iron deficiency Take 7.4 mL by mouth once daily. 473 mL 5 08/14/2024 Active Start: 08-06-2023 End: 08-14-2024 take 7.4 mL by mouth once daily ferrous sulfate 220 mg/5 mL elix Indications: Iron deficiency Take 7.4 mL by mouth once daily. 473 mL 2 08/06/2023 08/14/2024 Discontinued Start: 08-06-2023 take 7.4 mL by mouth once daily ferrous sulfate 220 mg/5 mL elix Indications: Iron deficiency Take 7.4 mL by mouth once daily. 473 mL 2 08/06/2023 Active Comment on above: Take 7.4 mL by mouth once daily. food supplemt, lactose-reduced (BOOST MEN) 0.08 gram- 0.9 kcal/mL liqd (20 sources) Start: 04-25-2023 food supplemt, lactose-reduced (BOOST MEN) 0.08 gram- 0.9 kcal/mL liqd Indications: Moderate protein-calorie malnutrition (HCC) Take 1 Bottle by mouth two times a day before meals. 99791 mL 5 04/25/2023 Active Start: 02-28-2023 End: 04-24-2023 food supplemt, lactose-reduc ed (BOOST MEN) 0.08 gram- 0.9 kcal/mL liqd Indications: Moderate protein-calorie malnutrition (HCC) Take 1 Bottle by mouth two times a day before meals. 52597 mL 5 02/28/2023 04/24/2023 Discontinued Start: 02-28-2023 food supplemt, lactose-reduced (BOOST MEN) 0.08 gram- 0.9 kcal/mL liqd Indications: Moderate protein-calorie malnutrition (HCC) Take 1 Bottle by mouth two times a day before meals. 56190 mL 5 02/28/2023 Active Comment on above: Take 1 Bottle by jose two times a day before meals. KAOPECTATE, ATTAPULGITE, ORAL (20 sources) KAOPECTATE, ATTAPULGITE, ORAL Take by mouth. Friend Active Lactobac no.41/Bifidobact no.7 (PROBIOTIC-10 ORAL) (20 sources) Lactobac no.41/Bifidobact no.7 (PROBIOTIC-10 ORAL) Take by mouth. Toby - Friend Active lactose-reduced food (ENSURE PLUS ORAL) (2 sources) lactose-reduced food (ENSURE PLUS ORAL) Take 1 Can by mouth 1 (one) time each day. 0 Active levocetirizine dihydrochloride 0.5 mg/ml oral solution (9 sources) Histamine-1 Receptor Antagonist Start: 12-10-19 take 2.5 mg by mouth once daily Levocetirizine (Xyzal) 2.5 mg/5 mL solution Active 2.5 mg PO DAILY December 09, 2024 12:00am Start: 12-09-2024 End: 12-09-2024 take 4.5 mg by mouth once daily Levocetirizine 2.5 mg/5 mL solution Discontinued 4.5 mg PO DAILY December 09, 2024 12:00am December 09, 2024 2:59pm Start: 10-02-2024 take 5 mg by mouth once daily levocetirizine (XYZAL) 2.5 mg/5 mL solution Indications: Seasonal allergies Take 5 mg by mouth once daily. 300 mL 5 10/02/2024 Active Magnesium (1 source) Start: 12-09-2024 take 1 tablet by mouth once daily Magnesium 250 mg tablet Active 250 mg PO DAILY December 09, 2024 12:00am mecobalamin 1 mg chewable tablet (1 source) Start: 12-09-2024 take 1 tablet by mouth once daily Mecobalamin (Vitamin B12) 1,000 mcg tablet,chewable Active 1000 ug PO DAILY December 09, 2024 12:00am mirtazapine 15 mg disintegrating oral tablet (20 sources) Start: 06-17-2024 take 1 tablet by mouth once daily Mirtazapine 15 mg tablet,disintegrating Active 15 mg PO DAILY June 17, 2024 1:00am take 1 tablet by jose th once daily at bedtime mirtazapine (REMERON) 15 mg tablet Take 15 mg by mouth daily at bedtime. Active Comment on above: Take 15 mg by mouth daily at bedtime. Nutritional Supplements (ENSURE PUDDING) pudg (20 sources) Start: 11-02-19 take 113 g by mouth twice daily Nutritional Supplements (ENSURE PUDDING) pudg Take 113 g by mouth twice daily. 2000 g 5 11/01/2022 Active Comment on above: Take 113 g by mouth twice daily. OLANZapine 15 mg disintegrating oral tablet (20 sources) Atypical Antipsychotic Start: 12-10-19 take 1 tablet by mouth once daily Olanzapine 15 mg tablet,disintegrati ng Active 15 mg PO DAILY December 09, 2024 12:00am Start: 12-06-2022 Olanzapine Act roc MG December 06, 2022 12:00am Start: 05-27-2018 End: 12-09-2024 take 1 tablet by mouth at bedtime Olanzapine 5 mg tablet,disintegrating Discontinued 5 mg PO AT BEDTIME 30 1 December 06, 2022 12:00am December 09, 2024 2:22pm Comment on above: Take 5 mg by mouth d aily at bedtime. omega-3 DHA-EPA (FISH OIL) 1,200 (144-216) mg capsule (20 sources) Start: 2023 take 1 capsule by mouth once daily at breakfast omega-3 DHA-EPA (FISH OIL) 1,200 (144-216) mg capsule Indications: Hypertriglyceridemia Take 1 capsule by mouth daily with breakfast. 90 capsule 1 07/26/2023 Active Comment on above: Take 1 capsule by mo [facility] daily with breakfast. Pedi Nutrition,Iron,Lact -Free (Else Toddler [place]) 5 gram-180 kcal/36 gram powder (1 source) Start: 2024 Pedi Nutrition,Iron,Lact-Free (Else Toddler [place]) 5 gram-180 kcal/36 gram powder Active 1 NMA PO DAILY December 09, 2024 12:00am polymyxin b [id number] unt/ml / trimethoprim 1 mg/ml ophthalmic solution (1 source) Dihydrofolate Reductase Inhibitor Antibacterial, Polymyxin-class Antibacterial Start: 2023 End: 2023 take 1 drop(s) into the eye(s) every four hours trimethoprim-polymyxin (POLYTRIM) 10,000 unit- 1 mg/mL ophthalmic solution Indications: Bacterial conjunctivitis Use 1 Drop in the left eye every 4 hours for 7 days. 10 mL 04/21/2024 04/28/2024 Active selenium 50 mcg tab (20 sources) Start: 2023 take 1 tablet by mouth once daily selenium 50 mcg tab Indications: Decreased appetite Take 1 tablet by mouth once daily. Takes as a gummie 07/30/2023 Active Start: 07-30-2023 take 1 tablet by jose once daily selenium 50 mcg tab Indications: Decreased appetite Take 1 tablet by mouth once daily. Takes as a gummie 0 07/30/2023 Active Comment on above: Take 1 tablet by jose th once daily. Takes as a gummie sulfamethoxazole 40 mg/ml / trimethoprim 8 mg/ml oral suspension (1 source) Dihydrofolate Reductase Inhibitor Antibacterial, Sulfonamide Antimicrobial Start: End: sulfamethoxazole-trim ethoprim (BACTRIM,SEPTRA) susp suspension Indications: Cellulitis of skin Take 20 mL by mouth two times a day for 10 days. Must be Bactrim DS- 2 x day for 10 days (liquid d/t unable to swallow pills well) 400 mL 0 09/02/2023 09/12/2023 Active Comment on above: Take 20 mL by mouth two times a day for 10 days. Must be Bactrim DS- 2 x day for 10 days (liquid d/t unable to swallow pills well) vitamin b12 1 mg oral tablet (20 sources) Vitamin B12 Start: take 1 tablet by mouth once daily cyanocobalamin (VITAMIN B-12) 1,000 mcg tab Indications: Decreased appetite Take 1 tablet by mouth once daily. Takes as a gummie 07/30/2023 Active Comment on above: Take 1 tablet by jose th once daily. Takes as a gummie zinc sulfate 110 mg oral tablet (20 sources) Start: Zinc Sulfate 25 mg zinc (110 mg) tab Indications: Decreased appetite Take 25 tablets by mouth once daily. Takes as a gummie 07/30/2023 Active Comment on above: Take 25 tablets by [facility] once daily. Takes as a gummie Completed/Discontinued Medications Medication Drug Class(es) Dates Sig (Normalized) Sig (Original) amoxicillin 50 mg/ml oral suspension (20 sources) Penicillin-class Antibacterial Start: 06-23-2024 End: 06-30-2024 take 1000 mg by mouth twice daily Amoxicillin 250 mg/5 mL suspension for reconstitution Discontinued 1000 mg PO TWICE A DAY 280 7 0 June 23, 2024 1:00am June 29, 2024 1:00am June 30, 2024 1:10am Start: 02-21-2024 End: 03-02-2024 take 10 mL by mouth twice daily amoxicillin (AMOXIL) 2 50 mg/5 mL suspension Indications: Sore throat Take 10 mL by mouth two times a day for 10 days. 200 mL 02/21/2024 03/02/2024 Active Start: 02-21-2024 End: 02-21-2024 take 1 capsule by mouth twice daily amoxicillin (AMOXIL) 500 mg capsule Indications: Sore throat Take 1 capsule by mouth two times a day for 10 days. 20 capsule 02/21/2024 02/21/2024 Discontinued Start: 11-29-2023 End: 12-06-2023 take 10.9 mL by mouth twice daily amoxicillin (AMOXIL) 400 mg/5 mL suspension Indications: Acute otitis media, right Take 10.9 mL by mouth two times a day for 7 days. 152.6 mL 0 11/29/2023 12/06/2023 Active Start: 11-28-2023 End: 12-05-2023 take 1 tablet by mouth twice daily amoxicillin (AMOXIL) 875 mg tablet Indications: Acute otitis media, right Take 1 tablet by mouth two times a day for 7 days. 14 tablet 0 11/28/2023 11/29/2023 Discontinued End: 10-02-2024 amoxicillin (AMOXIL) 250 mg/ 5 mL suspension Take by mouth three times a day. Dr Chong 10/02/2024 Discontinued cetirizine hydrochloride 10 mg oral tablet (20 sources) Histamine-1 Receptor Antagonist Start: 06-17-2024 End: 12-09-2024 take 1 tablet by mouth once daily Cetirizine (24hour Allergy) 10 mg tablet Discontinued 10 mg PO DAILY June 17, 2024 1:00am December 09, 2024 2:57pm Start: 04-03-2024 End: 10-02-2024 take 1 tablet by mouth once daily cetirizine HCl (ZYRTEC) 10 mg chewable tablet Indications: Seasonal allergies Take 1 tablet by mouth once daily. 90 tablet 1 04/03/2024 10/02/2024 Discontinued cholecalciferol 0.025 mg oral capsule (20 sources) Vitamin D Start: 11-01-2022 End: 07-26-2023 take 1 tablet by mouth once daily cholecalciferol (VITAMIN D) 1,000 unit tab tablet Indications: Vitamin D deficiency Take 1 tablet by mouth once daily. 90 tablet 1 11/01/2022 07/26/2023 Discontinued Start: 09-21-2016 End: 07-23-2025 take 1 capsule by mouth once daily Cholecalciferol (Vitamin D3) 25 mcg (1,000 unit) capsule Discontinued 25 ug PO DAILY December 06, 2022 12:00am December 09, 2024 2:58pm Comment on above: Take 1 tablet by jose th once daily. cholecalciferol, vitamin D3, (VITAMIN D3 ORAL) (1 source) End: 11-02-19 cholecalciferol, vitamin D3, (VITAMIN D3 ORAL) Take 1,000 Units by mouth. 0 11/01/2022 Discontinued Comment on above: Take 1,000 Units by mouth. clarithromycin 50 mg/ml oral suspension (20 sources) Macrolide Antimicrobial Start: 06-23-19 End: 06-30-19 take 500 mg by mouth twice daily Clarithromycin 250 mg/5 mL suspension for reconstitution Discontinued 500 mg PO TWICE A DAY 140 7 0 June 23, 2024 1:00am June 29, 2024 1:00am June 30, 2024 1:10am clarithromycin ( BIAXIN) 250 mg tablet Take by mouth two times a day. Dr Chong Active dicyclomine hydrochloride 20 mg oral tablet (4 sources) Anticholinergic Start: 12-13-2023 End: 12-09-2024 take 1 tablet by mouth twice daily as needed for pain Dicyclomine 20 mg tablet Discontinued 20 mg PO TWICE A DAY as needed for abdominal pain 14 0 December 13, 2023 6:58pm December 09, 2024 2:22pm Ensure Plus Oral Liquid (3 sources) Start: 01-20-2016 Ensure Plus Or al Liquid USE DIRECTED. 1 can daily Quantity: 2 Refills: 2 Michelle Neely MD Start : 20-Jan-2016 Active 237 ML Can (24 Cans) Ensure Plus Oral Liquid (10 sources) Start: 01-20-2016 Ensure Plus Or al Liquid USE DIRECTED. 1 can daily Quantity: 30 Refills: 2 Ordered: 23-Jan-2022 Michelle Neely MD Start : 20-Jan-2016 Active Start: 01-20-2016 Ensure Plus Or al Liquid USE DIRECTED. 1 can daily Quantity: 2 Refills: 2 Ordered: 20-Jan-2016 Michelle Neely MD Start : 20-Jan-2016 Active fluticasone propionate 0.05 mg/actuat metered dose nasal spray (20 sources) Corticosteroid Start: 12-06-2022 End: 06-17-2024 Fluticasone Propionate 50 mcg/actuation spray,suspension Discontinued INTRANASAL December 06, 2022 12:00am June 17, 2024 11:04am Start: 07-23-2022 take 1 spray(s) nasa l route once daily fluticasone (Flonase) 50 mcg/actuation nasal spray Indications: Non-seasonal allergic rhinitis, unspecified trigger Administer 1 spray into each nostril once daily. Shake gently. Before first use, prime pump. After use, clean tip and replace cap. 16 g 2 07/23/2022 Active Start: 08-10-2013 take 1 spray(s) nasa l route once daily Fluticasone Propionate 50 MCG/ACT Nasal Suspension USE 1 SPRAY IN EACH NOSTRIL ONCE DAILY. Quantity: 1 Refills: 2 Ordered: 01-Jan-2018 Michelle Neely MD Start : 10-Aug-2013 Active End: 07-23-2022 take 1 spray(s) nasal route once daily fluticasone (FLONASE) 50 mcg/actuation nasal spray Use 1 Casanova in each nostril once daily. Active Comment on above: Use 1 Casanova in each nostril once daily. loratadine 10 mg oral tablet (20 sources) Start: 12-06-2022 End: 06-17-2024 take 1 tablet by mouth once daily Loratadine (Claritin) 10 mg tablet,chewable Discontinued 10 mg PO DAILY December 06, 2022 12:00am June 17, 2024 11:04am Start: 07-31-2018 End: 10-02-2024 take 1 tablet by mouth once daily as needed loratadine (Claritin Reditabs) 10 mg disintegrating tablet Indications: Non-seasonal allergic rhinitis, unspecified trigger Take 1 tablet (10 mg) by mouth once daily as needed for allergies. 30 tablet 2 07/23/2022 08/22/2022 Active Comment on above: Take 10 mg by mouth once daily. melatonin 10 mg oral capsule (20 sources) Start: 06-17-2024 End: 12-09-2024 take 1 capsule by mouth at bedtime Melatonin 10 mg capsule Discontinued 10 mg PO AT BEDTIME June 17, 2024 1:00am December 09, 2024 2:59pm Start: 02-28-2023 take 1 dose by mouth once daily melatonin 10 mg chew Indications: Chronic insomnia Take 1 Each by mouth once daily. 02/28/2023 Active Comment on above: Take 1 Each by mouth once daily. omeprazole 40 mg delayed release oral capsule (7 sources) Proton Pump Inhibitor Start: 12-07-19 End: 12-10-19 take 1 capsule by mouth once daily Omeprazole 40 mg capsule,delayed release(DR/EC) Discontinued 40 mg PO DAILY 18 06December 06, 2022 12:00am December 09, 2024 2:59pm ondansetron 8 mg disintegrating oral tablet (4 sources) Serotonin-3 Receptor Antagonist Start: 09-30-19 End: 12-10-19 take 1 tablet by mouth every eight hours as needed for nausea and vomiting Ondansetron 8 mg tablet,disintegratin g Discontinued 8 mg PO Q8H as needed for nausea and vomiting September 30, 2023 12:00am December 09, 2024 2:59pm pantoprazole 40 mg oral granules (20 sources) Proton Pump Inhibitor Start: 06-23-19 End: 10-29-19 take 40 mg by mouth once daily Pantoprazole [address] for susp in packet Discontinued 40 mg PO daily June 23, 2024 1:00am October 28, 2024 3:43pm Start: 12-31-2022 End: 06-17-2024 take 1 tablet by mouth once daily pantoprazole DR (PROTONIX) 40 mg tablet Take 1 tablet by mouth once daily. (capsule) 90 tablet 1 12/31/2022 Active Start: 11-02-2022 End: 02-28-2023 pantoprazole (PROTONIX) 40 m g grps Indications: GERD without esophagitis Take 0.5 Packets by mouth DAILY (6 AM). 90 Each 0 12/28/2022 02/28/2023 Discontinued Start: 11-01-2022 End: 11-02-2022 take 1 tablet by mouth once daily before breakfast pantoprazole DR (PROTONIX) 20 mg tablet Indications: GERD without esophagitis Take 1 tablet by mouth daily before breakfast. Take on empty stomach, 1/2 hr before meal. 90 tablet 1 11/01/2022 11/02/2022 Discontinued Comment on above: Take 1 tablet by jose th daily before breakfast. Take on empty stomach, 1/2 hr before meal. Take 0.5 Packets by mouth DAILY (6 AM). Take 1 tablet by jose th once daily. (capsule) Sucralfate 100 mg/mL suspension (3 sources) Start: 04-14-2024 End: 10-28-2024 take 1 mL by mouth twice daily Sucralfate 100 mg/mL suspension Discontinued 10 mL PO TWICE A DAY [id number] 56 April 14, 2024 1:00am October 28, 2024 3:43pm Start: 04-14-2024 End: 10-28-2024 take 1 mL by mouth twice daily Sucralfate 100 mg/mL henao spension Discontinued 10 mL PO TWICE A DAY 1119April 14, 2024 1:00am October 28, 2024 3:43pm Problems Active Problems Problem Classification Problem Date Documented Da te Episodic/Chronic Allergic reactions (16 sources) Eczema; Translations: [Contact dermatitis and other eczema, unspecified cause] Onset: 3 06-04-2022 Episodic Anal and rectal conditions (1 source) Anal inflammation; Translations: [Other specified diseases of anus and rectum] 12-19-2023 Episodic Attention-deficit, conduct, and disruptive behavior disorders (7 sources) Altered behavior; Translations: [Other symptoms and signs involving appearance and behavior] 12-06-2022 Episodic Attention-deficit, conduct, and disruptive behavior disorders (1 source) Aggressive behavior; Translations: [Other symptoms and signs involving appearance and behavior] 12-09-2024 Episodic Blindness and vision defects (2 sources) Bilateral irregular astigmatism of eyes; Translations: [Irregular astigmatism, bilateral] Onset: 5 01-22-2025 Episodic Developmental disorders (20 sources) Intellectual functioning disability ; Translations: [Unspecified intellectual disabilities] Onset: 3 06-04-2022 Chronic Comment on above: Added by Problem Lis t Migration; 2013-04-22; Disorders of lipid metabolism (20 sources) Primary hypertriglyceridemia; Translations: [Pure hyperglyceridemia] Onset: 3 06-04-2022 Chronic Disorders usually diagnosed in infancy, childhood, or adolescence (11 sources) Autistic disorder; Translations: [Autistic disorder] Onset: 5 12-06-2022 Chronic Esophageal disorders (20 sources) Gastroesophageal reflux disease; Translations: [Esophageal reflux] Onset: 3 Chronic Fluid and electrolyte disorders (4 sources) Hypokalemia, gastrointestinal losses; Translations: [Hypokalemia] 09-30-2023 Episodic Genitourinary symptoms and ill-defined conditions (1 source) Dysuria; Translations: [Dysuria] 09-02-2023 Episodic Malaise and fatigue (2 sources) Weakness; Translations: [Weakness] Onset: 3 Episodic Miscellaneous mental health disorders (13 sources) Mental disorder; Translations: [Unspecified nonpsychotic mental disorder] Onset: 3 06-04-2022 Chronic Noninfectious gastroenteritis (4 sources) Gastroenteritis; Translations: [Noninfective gastroenteritis and colitis, unspecified] 09-30-2023 Episodic Nonspecific chest pain (3 sources) Chest pain; Translations: [Chest pain, unspecified] 12-21-2023 Episodic Nutritional deficiencies (20 sources) Vitamin D deficiency; Translations: [Unspecified vitamin D deficiency] Onset: 3 Chronic Comment on above: Added by Problem Chaya nelly Migration; 2013-04-22; Malnutrition; Nutritional deficiencies (7 sources) Undernutrition; Translations: [Cachexia] Onset: 3 07-26-2023 Episodic Other aftercare (1 source) Encounter for palliative care; Translations: [Encounter for palliative care] Onset: 3 Episodic Other bone disease and musculoskeletal deformities (2 sources) Bone finding; Translations: [Other specified disorders of bone, unspecified site] 12-19-2023 Episodic Other ear and sense organ disorders (1 source) Conductive hearing loss; Translations: [Conductive hearing loss, unspecified] 08-27-2024 Chronic Other ear and sense organ disorders (1 source) Asymmetrical sensorineural hearing loss; Translations: [Sensorineural hearing loss, bilateral] 09-29-2024 Chronic Other ear and sense organ disorders (1 source) Sensorineural hearing loss in left ear; Translations: [Unspecified sensorineural hearing loss] 09-29-2024 Chronic Other ear and sense organ disorders (1 source) Hearing loss in left ear; Translations: [Unspecified hearing loss, left ear] 09-29-2024 Chronic Other ear and sense organ disorders (2 sources) Sensorineural hearing loss, bilateral; Translations: [Sensorineural hearing loss, bilateral] Onset: 5 Chronic Other ear and sense organ disorders (2 sources) Unspecified sensorineural hearing loss; Translations: [Unspecified sensorineural hearing loss] Onset: 5 Chronic Other ear and sense organ disorders (2 sources) Unspecified hearing loss, left ear; Translations: [Unspecified hearing loss, left ear] Onset: 5 Chronic Other ear and sense organ disorders (2 sources) Conductive hearing loss, unspecified; Translations: [Conductive hearing loss, unspecified] Onset: 5 Chronic Other ear and sense organ disorders (2 sources) Impacted cerumen in left ear; Translations: [Impacted cerumen, left ear] 04-19-2023 Episodic Other ear and sense organ disorders (1 source) Acute otitis externa of left ear; Translations: [Unspecified acute noninfective otitis externa, left ear] 03-13-2024 Episodic Other ear and sense organ disorders (2 sources) Otalgia, left ear; Translations: [Otalgia, unspecified] Onset: 5 11-16-2024 Episodic Other eye disorders (1 source) Alternating esotropia; Translations: [Alternating esotropia] 01-22-2025 Episodic Other eye disorders (1 source) Corneal thinning; Translations: [Other specified disorders of cornea, bilateral] 01-22-2025 Episodic Other eye disorders (1 source) Alternating esotropia; Translations: [Alternating esotropia] Onset: 5 Episodic Other gastrointestinal disorders (8 sources) Loose stool; Translations: [Other fecal abnormalities] 08-26-2024 Episodic Other gastrointestinal disorders (5 sources) Constipation; Translations: [Constipation, unspecified] 04-14-2024 Episodic Other liver diseases (6 sources) Enzyme level - finding; Translations: [Elevated transaminase measurement] 12-23-2022 Episodic Other liver diseases (5 sources) Alkaline phosphatase raised; Translations: [Abnormal levels of other serum enzymes] 08-27-2024 Episodic Other lower respiratory disease (16 sources) Cough; Translations: [Cough] Onset: 3 06-04-2022 Episodic Comment on above: Added by Problem Chaya villegas Migration; 2013-04-22; Other lower respiratory disease (4 sources) Cough; Translations: [Acute cough] 04-02-2024 Episodic Other lower respiratory disease (1 source) Postviral cough; Translations: [Post-viral cough syndrome] 07-14-2024 Episodic Other nutritional; endocrine; and metabolic disorders (16 sources) Abnormal weight loss; Translations: [Loss of weight] Onset: 3 10-22-2022 Episodic Other nutritional; endocrine; and metabolic disorders (1 source) Adult failure to thrive; Translations: [Adult failure to thrive] Onset: 3 Episodic Other nutritional; endocrine; and metabolic disorders (1 source) Body mass index (BMI) 19.9 or less, adult; Translations: [Body mass index [BMI] 19.9 or less, adult] Onset: 3 Episodic Other nutritional; endocrine; and metabolic disorders (1 source) Decreased body mass index; Translations: [Body mass index (BMI) 19.9 or less, adult] 10-22-2022 Episodic Other nutritional; endocrine; and metabolic disorders (1 source) Picky eater; Translations: [Picky eater] 04-19-2023 Episodic Other nutritional; endocrine; and metabolic disorders (3 sources) Decrease in appetite; Translations: [Anorexia] 07-30-2023 Episodic Other nutritional; endocrine; and metabolic disorders (1 source) Developmental delay; Translations: [Unspecified lack of expected normal physiological development in childhood] 09-29-2024 Episodic Other nutritional; endocrine; and metabolic disorders (2 sources) Unspecified lack of expected normal physiological development in childhood; Translations: [Unspecified lack of expected normal physiological development in childhood] Onset: 5 Episodic Other upper respiratory disease (17 sources) Allergic rhinitis; Translations: [Allergic rhinitis, cause unspecified] Onset: 3 10-22-2022 Chronic Comment on above: Added by Problem Chaya nelly Migration; 2013-04-22; Other upper respiratory disease (2 sources) Other allergic rhinitis; Translations: [Other allergic rhinitis] Onset: 3 Chronic Other upper respiratory disease (2 sources) Seasonal allergy; Translations: [Other seasonal allergic rhinitis] 04-03-2024 Chronic Other upper respiratory disease (1 source) Other seasonal allergic rhinitis; Translations: [Seasonal allergies] Onset: 5 Chronic Otitis media and related conditions (3 sources) Acute right otitis media; Translations: [Otitis media, unspecified, right ear] 11-28-2023 Episodic Residual codes; unclassified (2 sources) Restlessness and agitation; Translations: [Restlessness and agitation] 12-19-2023 Chronic Residual codes; unclassified (1 source) Pale complexion; Translations: [Pallor] 07-25-2023 Episodic Residual codes; unclassified (1 source) FH: Thyroid disorder; Translations: [Family history of other endocrine, nutritional and metabolic diseases] 07-25-2023 Episodic Residual codes; unclassified (1 source) MMR vaccination status; Translations: [Other specified health status] 02-20-2024 Episodic Residual codes; unclassified (2 sources) Immunization status unknown; Translations: [Other specified health status] 02-20-2024 Episodic Residual codes; unclassified (1 source) Varicella status; Translations: [Other specified health status] 02-20-2024 Episodic Residual codes; unclassified (1 source) Impairment of adult development; Translations: [Other general symptoms and signs] 03-13-2024 Episodic Schizophrenia and other psychotic disorders (20 sources) Schizophrenic disorders ; Translations: [Unspecified schizophrenia, unspecified] Onset: 3 Chronic Comment on above: Schizophrenic disord er; Screening and history of mental health and substance abuse codes (14 sources) Patient encounter status; Translations: [Screening for depression] Episodic Skin and subcutaneous tissue infections (1 source) Cellulitis of skin; Translations: [Cellulitis, unspecified] 09-02-2023 Episodic Unclassified (4 sources) Patient encounter status; Translations: [Physical exam, routine] 10-02-2024 Unclassified (1 source) Post-viral cough syndrome; Translations: [Post-viral cough syndrome] Onset: 5 Unclassified (1 source) Acute cough; Translations: [Acute cough] Onset: 4 Unclassified (1 source) Cough in adult; Translations: [Cough in adult] Onset: 4 Viral infection (5 sources) Disease caused by 2019-nCoV; Translations: [COVID-19] 01-11-2023 Episodic Past or Other Problems Problem Classification Problem Date Documented Da te Episodic/Chronic Abdominal pain (20 sources) Abdominal pain; Translations: [Abdominal pain, unspecified site] Onset: 06-04-2022 06-04-2022 Episodic Administrative/social admission (8 sources) Repeated prescription; Translations: [Encounter for issue of repeat prescription] Onset: 10-02-2024 12-06-2022 Episodic Diabetes mellitus without complication (15 sources) Hyperglycemia; Translations: [Other abnormal glucose] Onset: 06-04-2022 06-04-2022 Episodic Immunizations and screening for infectious disease (2 sources) Vaccination needed; Translations: [Encounter for immunization] Onset: 08-11-2024 03-16-2024 Episodic Inflammation; infection of eye (except that caused by tuberculosis or sexually transmitteddisease) (2 sources) Bacterial conjunctivitis; Translations: [Unspecified conjunctivitis] Onset: 04-21-2024 04-21-2024 Episodic Intestinal infection (9 sources) Infection caused by Helicobacter pylori; Translations: [Other specified bacterial intestinal infections] Onset: 08-26-2024 08-26-2024 Episodic Other aftercare (1 source) Other exterminator (current) drug therapy; Translations: [Medication management] Onset: 04-02-2024 Episodic Other ear and sense organ disorders (1 source) Unspecified acute noninfective otitis externa, left ear; Translations: [Acute otitis externa of left ear, unspecified type] Onset: 03-13-2024 Episodic Other ear and sense organ disorders (1 source) Impacted cerumen, left ear; Translations: [Impacted cerumen of left ear] Onset: 03-13-2024 Episodic Other gastrointestinal disorders (1 source) Other fecal abnormalities; Translations: [Other fecal abnormalities] Onset: 08-26-2024 Episodic Other liver diseases (1 source) Abnormal levels of other serum enzymes; Translations: [Elevated alkaline phosphatase level] Onset: 09-14-2024 Episodic Other nutritional; endocrine; and metabolic disorders (14 sources) Body mass index less than 20; Translations: [Body mass index (BMI) 19.9 or less, adult] Onset: 06-04-2022 06-04-2022 Episodic Other nutritional; endocrine; and metabolic disorders (13 sources) H/O: nutritional disorder; Translations: [Personal history of nutritional deficiency] Resolved: 11-09-2013 Episodic Other nutritional; endocrine; and metabolic disorders (2 sources) Anorexia; Translations: [Decrease in appetite] Onset: 02-20-2024 Episodic Other screening for suspected conditions (not mental disorders or infectious disease) (20 sources) Decreased thyroid stimulating hormone level; Translations: [Nonspecific abnormal results of function study of thyroid] Onset: 06-04-2022 Episodic Other upper respiratory infections (20 sources) Acute sinusitis; Translations: [Acute sinusitis, unspecified] Onset: 06-04-2022 06-04-2022 Episodic Comment on above: Added by Sampson Henry; 2013-04-22; Residual codes; unclassified (10 sources) History of clinical finding in subject; Translations: [Personal history of other specified diseases] Resolved: 01-20-2016 Episodic Comment on above: Added by Sampson Henry; 2013-04-22; Residual codes; unclassified (1 source) Other general symptoms and signs; Translations: [Impaired development of adult] Onset: 03-13-2024 Episodic Residual codes; unclassified (4 sources) Other specified health status; Translations: [Measles, mumps, rubella (MMR) vaccination status unknown] Onset: 02-20-2024 Episodic Unclassified (3 sources) History of clinical finding in subject; Translations: [History of abnormal weight loss] Unclassified (2 sources) Elevated LFTs 09-17-2024 Urinary tract infections (15 sources) Urinary tract infectious disease; Translations: [Urinary tract infection, site not specified] Onset: 06-04-2022 06-04-2022 Episodic Comment on above: Added by Sampson Henry; 2013-04-22; NEGATED: Highlighted row has not occurred!Residual codes; unclassified (20 sources) Disease Episodic Results Test Name Value Interpretation Reference [facility] (FAMP[facility]) ARVIND DOMÍNGUEZ ([id number]) 1975 M GRD Date Time Provider Department 01/14/25 NIRAJ ANDINO During your visit today, we recorded the following information about you: Michelle Tijerina RN 01/14/2025 9:57 AM Signed Patient's sister Chiki calls and states that patient continues to not feel well. hCiki had brought in urine to have tested yesterday. Latest Ref Rng 01/13/2025 Color Yellow Yellow Clarity Clear Clear Glucose, Urine Negative Negative Bilirubin, Urine Negative Negative Ketones, Urine Negative Negative Specific Castell, Ur 1.005 - 1.030 1.020 Hemoglobin/Blood,Ur Negative Negative pH, Urine 5.0 - 8.0 6.5 Protein, Urine Negative Negative Urobilinogen 0.2-1.0 EU/dL 1.0 EU/dL Nitrites Negative Negative Leukest Negative 1+ ! WBC, Urine 0-5 /HPF 0-5 /HPF RBC, Urine 0-2 /HPF 0-2 /HPF Bacteria Negative /HPF Negative Epithelial Cells /HPF None Seen Hyaline Cast 0 /LPF 1-3 /LPF ! Urine Culture is Still Pending. Please review and advise, SAMANTA Mitchell Rayanne, PA-C 01/14/2025 10:41 AM Signed Let them know that I don't have all the results back yet. But based on urinalysis he doesn't have any blood. Just a small amount of leuks which may or may not be from infection. . Is there anything new that she can report about his symptoms? Has the location that he points to changed? Any bowel changes, vomiting, fevers KOKO Tello Barbara, RN 01/14/2025 4:17 PM Signed Sister Chiki calling in again to ask about results. She has not started pt on the antibiotics yet. Per Lorranie's OV note, it appears she wanted pt to get the antibiotics as soon as he gave a urine sample. Chiki will go get them from the pharmacy and starting giving them to him. She states he is still saying he is hurting and pointing to the same area. She denies any bowel changes, vomiting, or fevers. Still states she doesn't notice any swelling of his male genitalia either. Notified we will contact her once we have the urine culture report back. Michelle Tijerina RN 01/15/2025 12:47 PM Signed See Telephone Encounter 01/15/2025. Allergies As of Date: 01/14/2025 (No Known Allergies) Date Reviewed: 01/12/2025 Reviewed by: Antonia Green LPN - Fully Assessed Reason for Visit: Results [95] Prescriptions as of 01/15/2025 - cephALEXin (KEFLEX) 250 mg/5 mL suspension Take 10 mL by mouth two times a day for 5 days. - levocetirizine (XYZAL) 2.5 mg/5 mL solution Take 5 mg by mouth once daily. - ergocalciferol 50,000 unit capsule (VITAMIN D2, DRISDOL) Take 1 capsule by mouth one time a week. - ferrous sulfate 220 mg/5 mL elix Take 7.4 mL by mouth once daily. - atorvastatin (ATORVALIQ) 20 mg/5 mL (4 mg/mL) suspension Take 5 mL by mouth once daily. - clarithromycin (BIAXIN) 250 mg tablet Take by mouth two times a day. Dr Chong - KAOPECTATE, ATTAPULGITE, ORAL Take by mouth. Dr Chong - Lactobac no.41/Bifidobact no.7 (PROBIOTIC-10 ORAL) Take by mouth. Gummies - Dr. Chong - calcium carbonate (CALCIUM ANTACID) 500 mg chew Take 2 tablets by mouth once daily. - cyanocobalamin (VITAMIN B-12) 1,000 mcg tab Take 1 tablet by mouth once daily. Takes as a gummie - selenium 50 mcg tab Take 1 tablet by mouth once daily. Takes as a gummie - Zinc Sulfate 25 mg zinc (110 mg) tab Take 25 tablets by mouth once daily. Takes as a gummie - omega-3 DHA-EPA (FISH OIL) 1,200 (144-216) mg capsule Take 1 capsule by mouth daily with breakfast. - ascorbic acid, vitamin C, (VITAMIN C) 500 mg tablet Take 1 tablet by mouth once daily. - diphenhydrAMINE (BENADRYL) 25 mg capsule Take 1-2 capsules by mouth at bedtime as needed. - food supplemt, lactose-reduced (BOOST MEN) 0.08 gram- 0.9 kcal/mL liqd Take 1 Bottle by mouth two times a day before meals. - mirtazapine (REMERON) 15 mg tablet Take 15 mg by mouth daily at bedtime. - melatonin 10 mg chew Take 1 Each by mouth once daily. - pantoprazole DR (PROTONIX) 40 mg tablet Take 1 tablet by mouth once daily. (capsule) - fluticasone (FLONASE) 50 mcg/actuation nasal spray Use 1 Casanova in each nostril once daily. - OLANZapine orally disintegrating (ZYPREXA ZYDIS) 5 mg disintegrating tablet Take 5 mg by mouth daily at bedtime. - Nutritional Supplements (ENSURE PUDDING) pudg Take 113 g by mouth twice daily. Problem List As Of Date: 01/14/2025 (None) Encounter Status:Closed by MICHELLE TIJERINA on 01/15/25 Normal [facility] Bacteria Ur Culton Bacteria identified Cx Nom (U) CULTURE, URINE: Mixed microbiota, including predominantly: ORGANISM ID: 1 10,000 -<50,000 CFU/ml Streptococcus agalactiae (group b streptococcus) Susceptibility testing not performed on beta hemolytic streptococci due to predictable susceptibility to penicillin and other beta lactams. For testing, call Microbiology within 72 hours. Normal [facility] Comment on above: Performed By: #### 6 30-4 ####[facility] LABIA [id number] [place] [address] [place] Urinalysis complete panel (U )on 01-13-2025 Bacteria LM.HPF (Urine sed) [#/Area] Negative Normal Negative [facility] Comment on above: Order Comment: Speci men Type: URINE SPECIMENOrdering Facility: [facility] Address: [address] [place] [address] Performed By: #### 2 4356-8 ####[facility] LABIA [id number] [place] [address] [place] Bilirubin Ql (U) Negative Normal Negative [facility] Comment on above: Order Comment: Speci men Type: URINE SPECIMENOrdering Facility: [facility] Address: [address] [place] [address] Performed By: #### 2 4356-8 ####[facility] LABCLIA [id number] [address] [place] [address] [place] Clarity (Unsp spec) Clear Normal Clear [facility] Comment on above: Order Comment: Speci men Type: URINE SPECIMENOrdering Facility: [facility] Address: [address] [place], [place] [id number] Performed By: #### 2 4356-8 ####[facility] LABCLIA [id number] [facility] [address] [place] [address] [place] Color (U) Yellow Normal Yellow [facility] Comment on above: Order Comment: Speci men Type: URINE SPECIMENOrdering Facility: [facility] Address: [address] [place] [address] Performed By: #### 2 4356-8 ####[facility] LABCLIA [id number] [place] [address] [place] Epithelial cells LM.HPF (Urine sed) [#/Area] None Seen Normal [facility] Comment on above: Order Comment: Speci men Type: URINE SPECIMENOrdering Facility: [facility] Address: [address] [place] [address] Performed By: #### 2 4356-8 ####[facility] LABCLIA [id number] [address] [place] [address] [place] Glucose Test strip (U) [Mass/Vol] Negative Normal Negative [facility] Comment on above: Order Comment: Speci men Type: URINE SPECIMENOrdering Facility: [facility] Address: [address] [place], [place] [id number] Performed By: #### 2 4356-8 ####[facility] LABCLIA [id number] [address] [address] [place] Hemoglobin Ql (U) Negative Normal Negative [facility] Comment on above: Order Comment: Speci men Type: URINE SPECIMENOrdering Facility: [facility] Address: [address] [place] [address] Performed By: #### 2 4356-8 ####[facility] LABCLIA [id number] [place] [address] [place] Hyaline casts (Urine sed) [#/Area] 1-3 /LPF Abnormal 0 /LPF [facility] Comment on above: Order Comment: Speci men Type: URINE SPECIMENOrdering Facility: [facility] Address: [address] [place] [address] Performed By: #### 2 4356-8 ####[facility] LABCLIA [id number] [place] [address] [place] Ketones Ql (U) Negative Normal Negative [facility] Comment on above: Order Comment: Speci men Type: URINE SPECIMENOrdering Facility: [facility] Address: [address] [place] [address] Performed By: #### 2 4356-8 ####[facility] LABCLIA [id number] [place] [address] [place] Leukocyte esterase Test strip Ql (U) 1+ Abnormal Negative [facility] Comment on above: Order Comment: Speci men Type: URINE SPECIMENOrdering Facility: [facility] Address: [address] [place] [address] Performed By: #### 2 4356-8 ####[facility] LABCLIA [id number] [place] [address] [place] Nitrite Ql (U) Negative Normal Negative [facility] Comment on above: Order Comment: Speci men Type: URINE SPECIMENOrdering Facility: [facility] Address: [address] [place] [address] Performed By: #### 2 4356-8 ####[facility] LABCLIA [id number] [place] [id number] [place] pH (U) 6.5 [pH] Normal 5.0-8.0 [facility] Comment on above: Order Comment: Speci men Type: URINE SPECIMENOrdering Facility: [facility] Address: [address] [place] [address] Performed By: #### 2 4356-8 ####[facility] LABIA [id number] [place] [address] [place] Protein (U) [Mass/Vol] Negative Normal Negative Cl [facility] Comment on above: Order Comment: Speci men Type: URINE SPECIMENOrdering Facility: [facility] Address: [address] [place] [address] Performed By: #### 2 4356-8 ####[facility] [id number] [place] [address] [place] RBC LM.HPF (Urine sed) [#/Area] 0-2 /HPF Normal 0-2 /HPF [facility] Comment on above: Order Comment: Speci men Type: URINE SPECIMENOrdering Facility: [facility] Address: [address] [place] [address] Performed By: #### 2 4356-8 ####[facility] [id number] [place] [address] [place] Specific gravity (U) [Rel density] 1.020 Normal 1.005-1.03 0 [facility] Comment on above: Order Comment: Speci men Type: URINE SPECIMENOrdering Facility: [facility] Address: [address] [place] [address] Performed By: #### 2 4356-8 ####[facility] [id number] [place] [address] [place] Urobilinogen Ql (U) 1.0 EU/dL Normal 0.2-1.0 EU/dL [facility] Comment on above: Order Comment: Speci men Type: URINE SPECIMENOrdering Facility: [facility] Address: [address] [place] [address] Performed By: #### 2 4356-8 ####[facility] LABCLIA [id number] [place] [address] [place] WBC LM.HPF (Urine sed) [#/Area] 0-5 /HPF Normal 0-5 /HPF [facility] Comment on above: Order Comment: Speci men Type: URINE SPECIMENOrdering Facility: [facility] Address: [address] [place] [address] Performed By: #### 2 4356-8 ####[facility] LABCLIA [id number] [place] [id number] [place] CNOVon 01-12-2025 CNOV Office Visit (ROLY ) ARVIND DOMÍNGUEZ ([id number]) 1975 M GRD Date Time Provider Department 01/12/25 10:00 AM LORRAINE DONG During your visit today, we recorded the following information about you: Temperature Pulse Respiration Blood pressure 97.5 degrees 82/minute 16/minute 122/86 Weight 72.1 kg Lorraine Dong PA-C 01/12/2025 11:23 AM Signed Chief Complaint Patient presents with: UTI: Caregiver reports pt up last night to the bathroom noting hurting down there Pt is unable to give urine specimen. HPI Arvind Domínguez is a 49 year old male who presents here today for Above Complaints.. Dysuria: - Nocturnal onset of dysuria, prompting evaluation. - Arvind Domínguez is non-verbal; history provided by caregiver. - Caregiver reports Arvind was tossing and turning at night, which is unusual behavior. - When asked about discomfort, Arvind indicated pain by grabbing the genital area. - Prior to the visit, Arvind was observed rubbing the bladder area. - Nocturnal enuresis noted. - No history of UTIs. - Denies observed testicular enlargement or penile erythema. - Back pain not observed. - Recent normal bowel movement; denies diarrhea or constipation. Past medical history, appointments, medications, allergies reviewed. Previous Medical History PAST MEDICAL HISTORY Diagnosis Date Autism GERD (gastroesophageal reflux disease) Mental disability Schizophrenia (HCC) Underweight due to inadequate caloric intake Vitamin D deficiency Previous Surgical History No past surgical history on file. Family History No family history on file. Patient Allergies ALLERGIES No Known Allergies Current Medications Current Outpatient Medications on File Prior to Visit Medication Sig levocetirizine (XYZAL) 2.5 mg/5 mL solution Take 5 mg by mouth once daily. ergocalciferol 50,000 unit capsule (VITAMIN D2, DRISDOL) Take 1 capsule by mouth one time a week. ferrous sulfate 220 mg/5 mL elix Take 7.4 mL by mouth once daily. atorvastatin (ATORVALIQ) 20 mg/5 mL (4 mg/mL) suspension Take 5 mL by mouth once daily. KAOPECTATE, ATTAPULGITE, ORAL Take by mouth. Dr Chong Lactobac no.41/Bifidobact no.7 (PROBIOTIC-10 ORAL) Take by mouth. Gummies - Dr. Chong calcium carbonate (CALCIUM ANTACID) 500 mg chew Take 2 tablets by mouth once daily. cyanocobalamin (VITAMIN B-12) 1,000 mcg tab Take 1 tablet by mouth once daily. Takes as a gummie selenium 50 mcg tab Take 1 tablet by mouth once daily. Takes as a gummie Zinc Sulfate 25 mg zinc (110 mg) tab Take 25 tablets by mouth once daily. Takes as a gummie omega-3 DHA-EPA (FISH OIL) 1,200 (144-216) mg capsule Take 1 capsule by mouth daily with breakfast. ascorbic acid, vitamin C, (VITAMIN C) 500 mg tablet Take 1 tablet by mouth once daily. diphenhydrAMINE (BENADRYL) 25 mg capsule Take 1-2 capsules by mouth at bedtime as needed. food supplemt, lactose-reduced (BOOST MEN) 0.08 gram- 0.9 kcal/mL liqd Take 1 Bottle by mouth two times a day before meals. mirtazapine (REMERON) 15 mg tablet Take 15 mg by mouth daily at bedtime. melatonin 10 mg chew Take 1 Each by mouth once daily. pantoprazole DR (PROTONIX) 40 mg tablet Take 1 tablet by mouth once daily. (capsule) fluticasone (FLONASE) 50 mcg/actuation nasal spray Use 1 Casanova in each nostril once daily. OLANZapine orally disintegrating (ZYPREXA ZYDIS) 5 mg disintegrating tablet Take 5 mg by mouth daily at bedtime. Nutritional Supplements (ENSURE PUDDING) pudg Take 113 g by mouth twice daily. clarithromycin (BIAXIN) 250 mg tablet Take by mouth two times a day. Dr Chong (Patient not taking: Reported on 01/12/2025) No current facility-administered medications on file prior to visit. Social History SOCIAL HISTORY[1] Review of Symptoms REVIEW OF SYSTEMS Constitutional: (+) sleep disturbance Respiratory: (-) cough Gastrointestinal: (+) vomiting, (-) diarrhea, (-) constipation, (-) gastroesophageal reflux Genitourinary: (+) suprapubic pain, (-) testicular swelling Musculoskeletal: (-) back pain Skin: (-) penile redness SEE HPI EXAM: BP 122/86 Pulse 82 Temp 36.4 ?C (97.5 ?F) (Oral) Resp 16 Wt 72.1 kg (159 lb) SpO2 96% BMI 22.81 kg/m? General Appearance: Well appearing, alert, in no acute distress, well-hydrated, well nourished.. Lungs: Lungs clear to auscultation. No wheezing, rhonchi, rales.. Heart: RRR without murmur, gallop, or rubs. No ectopy. Abdomen: no obvious pain on exam. BS wnl. Neg CVA tenderness. . Health Maintenance List Depression Screening Never done HIV Screening Never done Colorectal Cancer Screening Never done Medicare Advantage Annual Wellness Visit Never done Hepatitis B Vaccine(3 of 3 - 19+ 3-dose series) due on 10/06/2024 Anxiety Screening due on 08/11/2025 Influenza Vaccine(1) due on 01/18/2025 Diabetes Screening due on 12/18 (more content not included)... Normal [facility] HIGH SENSITIVITY TROPONIN T (THIRD) 3 HRS AFTER INITIALon 12-19-2024 Troponin T.cardiac High sensitivity method [Mass/Vol] 13 ng/L High <12 [facility] Comment on above: Order Comment: Speci men Type: BLOOD SPECIMEN [facility] Address: [address] [place] [address] Performed By: #### L [id number] #### [facility] CLIA [id number] [address] [place] [address] [place] CBC W Auto Differential pane l (Bld)on 12-18-2024 Basophils (Bld) [#/Vol] 0.04 10*3/uL Normal <0.11 [facility] Comment on above: Order Comment: Speci men Type: BLOOD SPECIMEN [facility] Address: [address] [place] [address] Performed By: #### 5 7021-8 #### [facility] CLIA [id number] [address] [place] Basophils/100 WBC (Bld) 0.5 % Normal [facility] Comment on above: Order Comment: Speci men Type: BLOOD SPECIMEN [facility] Address: [address] [place] [address] Performed By: #### 5 7021-8 #### [facility] CLIA [id number] [address] Differential cell count method Nom (Bld) Auto Normal [facility] Comment on above: Order Comment: Speci men Type: BLOOD SPECIMEN [facility] Address: [address] [place] [address] Performed By: #### 5 7021-8 #### [facility] CLIA [id number] [address] [place] [address] [place] Eosinophils (Bld) [#/Vol] 0.66 10*3/uL High <0.46 [facility] Comment on above: Order Comment: Speci men Type: BLOOD SPECIMEN [facility] Address: [address] [place] [address] Performed By: #### 5 7021-8 #### [facility] CLIA [id number] [address] Eosinophils/100 WBC (Bld) 8.0 % Normal [facility] Comment on above: Order Comment: Speci men Type: BLOOD SPECIMEN [facility] Address: [address] [place] [address] Performed By: #### 5 7021-8 #### [facility] CLIA [id number] [address] [place] Erythrocyte distribution width (RBC) [Ratio] 13.2 % Normal 11.5-15.0 [facility] Comment on above: Order Comment: Speci men Type: BLOOD SPECIMEN [facility] Address: [address] [place] [address] Performed By: #### 5 7021-8 #### [facility] CLIA [id number] [address] [place] Hematocrit (Bld) [Volume fraction] 42.9 % Normal 39.0-51.0 [facility] Comment on above: Order Comment: Speci men Type: BLOOD SPECIMEN [facility] Address: [address] [place] [address] Performed By: #### 5 7021-8 #### [facility] CLIA [id number] [address] [place] Hemoglobin (Bld) [Mass/Vol] 13.7 g/dL Normal 13.0-17.0 [facility] Comment on above: Order Comment: Speci men Type: BLOOD SPECIMEN [facility] Address: [address] [place] [address] Performed By: #### 5 7021-8 #### [facility] CLIA [id number] [address] [place] Immature granulocytes (Bld) [#/Vol] 10*3/uL Normal <0.10 [facility] Comment on above: Order Comment: Speci men Type: BLOOD SPECIMEN [facility] Address: [address] [place] [address] Performed By: #### 5 7021-8 #### [facility] CLIA [id number] [address] Immature granulocytes/100 WBC (Bld) 0.2 % Normal [facility] Comment on above: Order Comment: Speci men Type: BLOOD SPECIMEN [facility] Address: [address] [place] [address] Performed By: #### 5 7021-8 #### [facility] CLIA [id number] [address] Lymphocytes (Bld) [#/Vol] 2.31 10*3/uL Normal 1.00-4.00 [facility] Comment on above: Order Comment: Speci men Type: BLOOD SPECIMEN [facility] Address: [address] [place] [address] Performed By: #### 5 7021-8 #### [facility] CLIA [id number] [address] Lymphocytes/100 WBC (Bld) 28.0 % Normal [facility] Comment on above: Order Comment: Speci men Type: BLOOD SPECIMEN [facility] Address: [address] [place] [address] Performed By: #### 5 7021-8 #### [facility] CLIA [id number] [address] MCH (RBC) [Entitic mass] 27.5 pg Normal 26.0-34.0 [facility] Comment on above: Order Comment: Speci men Type: BLOOD SPECIMEN [facility] Address: [address] [place] [address] Performed By: #### 5 7021-8 #### [facility] CLIA [id number] [address] MCHC (RBC) [Mass/Vol] 31.9 g/dL Normal 30.5-36.0 [facility] Comment on above: Order Comment: Speci men Type: BLOOD SPECIMEN [facility] Address: [address] [place] [address] Performed By: #### 5 7021-8 #### [facility] CLIA [id number] [address] MCV (RBC) [Entitic vol] 86.0 fL Normal 80.0-100.0 [facility] Comment on above: Order Comment: Speci men Type: BLOOD SPECIMEN [facility] Address: [address] [place] [address] Performed By: #### 5 7021-8 #### [facility] CLIA [id number] [address] [place] [address] [place] Monocytes (Bld) [#/Vol] 0.81 10*3/uL Normal <0.87 [facility] Comment on above: Order Comment: Speci men Type: BLOOD SPECIMEN [facility] Address: [address] [place] [address] Performed By: #### 5 7021-8 #### [facility] CLIA [id number] [address] [place] Monocytes/100 WBC (Bld) 9.8 % Normal [facility] Comment on above: Order Comment: Speci men Type: BLOOD SPECIMEN [facility] Address: [address] [place] [address] Performed By: #### 5 7021-8 #### [facility] CLIA [id number] [address] [place] [address] [place] Neutrophils (Bld) [#/Vol] 4.42 10*3/uL Normal 1.45-7.50 [facility] Comment on above: Order Comment: Speci men Type: BLOOD SPECIMEN [facility] Address: [address] [place] [address] Performed By: #### 5 7021-8 #### [facility] CLIA [id number] [address] [place] Neutrophils/100 WBC (Bld) 53.5 % Normal [facility] Comment on above: Order Comment: Speci men Type: BLOOD SPECIMEN [facility] Address: [address] [place] [address] Performed By: #### 5 7021-8 #### [facility] CLIA [id number] [address] [place] [address] [place] Nucleated RBC (Bld) [#/Vol] 10*3/uL Normal <0.01 [facility] Comment on above: Order Comment: Speci men Type: BLOOD SPECIMEN [facility] Address: [address] [place] [address] Performed By: #### 5 7021-8 #### [facility] CLIA [id number] [address] [place] [address] [place] Nucleated RBC/100 WBC (Bld) [Ratio] 0.0 /100 WBC Normal [facility] Comment on above: Order Comment: Speci men Type: BLOOD SPECIMEN [facility] Address: [address] [place] [address] Performed By: #### 5 7021-8 #### [facility] CLIA [id number] [address] [place] [address] [place] Platelet mean volume (Bld) [Entitic vol] 11.0 fL Normal 9.0-12.7 [facility] Comment on above: Order Comment: Speci men Type: BLOOD SPECIMEN [facility] Address: [address] [place] [address] Performed By: #### 5 7021-8 #### [facility] CLIA [id number] [address] [place] [address] [place] Platelets (Bld) [#/Vol] 210 10*3/uL Normal 150-400 [facility] Comment on above: Order Comment: Speci men Type: BLOOD SPECIMEN [facility] Address: [address] [place] [address] Performed By: #### 5 7021-8 #### [facility] CLIA [id number] [address] [place] [address] [place] RBC (Bld) [#/Vol] 4.99 10*6/uL Normal 4.20-6.00 [facility] Comment on above: Order Comment: Speci men Type: BLOOD SPECIMEN [facility] Address: [address] [place] [address] Performed By: #### 5 7021-8 #### [facility] CLIA [id number] [address] [place] WBC (Bld) [#/Vol] 8.26 10*3/uL Normal 3.70-11.00 [facility] Comment on above: Order Comment: Speci men Type: BLOOD SPECIMEN [facility] Address: [address] [place] [address] Performed By: #### 5 7021-8 #### [facility] CLIA [id number] [address] [place] [address] [place] [facility] Comprehensive metabolic 2000 panelon 12-18-2024 Albumin [Mass/Vol] 4.8 g/dL Normal 3.9-4.9 [facility] Comment on above: Order Comment: Speci men Type: BLOOD SPECIMEN [facility] Address: [address] [place] [address] Performed By: #### 3 3762-6, 37323-2, 45626-9, [id number] #### [facility] CLIA [id number] [address] [place] [address] [place] ALP [Catalytic activity/Vol] 235 U/L High 38-113 [facility] Comment on above: Order Comment: Speci men Type: BLOOD SPECIMEN [facility] Address: [address] [place] [address] Performed By: #### 3 3762-6, 69306-3, 19470-9, [id number] #### [facility] CLIA [id number] [address] [place] [address] [place] ALT [Catalytic activity/Vol] 27 U/L Normal 10-54 [facility] Comment on above: Order Comment: Speci men Type: BLOOD SPECIMEN [facility] Address: [address] [place] [address] Performed By: #### 3 3762-6, 71875-6, 72807-6, [id number] #### [facility] CLIA [id number] [address] [place] [address] [place] Anion gap [Moles/Vol] 11 mmol/L Normal 8-15 [facility] Comment on above: Order Comment: Speci men Type: BLOOD SPECIMEN [facility] Address: [address] [place] [address] Performed By: #### 3 3762-6, 16304-7, 83234-9, [id number] #### [facility] CLIA [id number] [address] [place] [address] [place] AST [Catalytic activity/Vol] 26 U/L Normal 14-40 [facility] Comment on above: Order Comment: Speci men Type: BLOOD SPECIMEN [facility] Address: [address] [place] [address] Performed By: #### 3 3762-6, 86037-7, 39240-2, [id number] #### [facility] CLIA [id number] [address] [place] [address] [place] Bilirubin [Mass/Vol] 0.4 mg/dL Normal 0.2-1.3 [facility] Comment on above: Order Comment: Speci men Type: BLOOD SPECIMEN [facility] Address: [address] [place] [address] Performed By: #### 3 3762-6, 90839-2, 64239-9, [id number] #### [facility] CLIA [id number] [address] [place] [address] [place] Calcium [Mass/Vol] 9.7 mg/dL Normal 8.5-10.2 [facility] Comment on above: Order Comment: Speci men Type: BLOOD SPECIMEN [facility] Address: [address] [place] [address] Performed By: #### 3 3762-6, 87942-7, 30268-2, [id number] #### [facility] CLIA [id number] [address] [place] [address] [place] Chloride [Moles/Vol] 102 mmol/L Normal 98-107 [facility] Comment on above: Order Comment: Speci men Type: BLOOD SPECIMEN [facility] Address: [address] [place] [address] Performed By: #### 3 3762-6, 53838-6, 42374-0, [id number] #### [facility] CLIA [id number] [address] [place] [address] [place] CO2 [Moles/Vol] 26 mmol/L Normal 22-30 [facility] Comment on above: Order Comment: Speci men Type: BLOOD SPECIMEN [facility] Address: [address] [place] [address] Performed By: #### 3 3762-6, 96229-3, 97526-0, [id number] #### [facility] CLIA [id number] [address] [place] [address] [place] [facility] Creatinine [Mass/Vol] 0.99 mg/dL Normal 0.73-1.22 [facility] Comment on above: Order Comment: [place] roy Type: BLOOD SPECIMEN [facility] Address: [address] [place] [address] Performed By: #### 3 3762-6, 61195-0, 06191-2, [id number] #### [facility] CLIA [id number] [address] [place] [address] [place] eGFRcr SerPlBld CKD-EPI 2020 94 mL/min/1.73m??? Normal >=60 [facility] Comment on above: Order Comment: [place] roy Type: BLOOD SPECIMEN [facility] Address: [address] [place] [address] Result Comment: Rashida mated Glomerular Filtration Rate (eGFR) is calculated using the 2020 CKD-EPI creatinine equation. This equation utilizes serum creatinine, sex, and age as parameters. The creatinine assay has traceable calibration to isotope dilution-mass spectrometry. Refer to KDIGO guidelines for clinical interpretation. In patients with unstable renal function, e.g. those with acute kidney injury, the eGFR may not accurately reflect actual GFR. Performed By: #### 3 3762-6, 66050-3, 75956-3, [id number] #### [facility] CLIA [id number] [address] [place] [address] [place] Glucose [Mass/Vol] 98 mg/dL Normal 74-99 [facility] Comment on above: Order Comment: [place] roy Type: BLOOD SPECIMEN [facility] Address: [address] [place] [address] Result Comment: The [place] [employer] (ADA) provides guidance for cutoff values for fasting glucose and random glucose. The ADA defines fasting as no caloric intake for at least 8 hours. Fasting plasma glucose results between 100 to 125 mg/dL indicate increased risk for diabetes (prediabetes). Fasting plasma glucose results greater than or equal to 126 mg/dL meet the criteria for diagnosis of diabetes. In the absence of unequivocal hyperglycemia, results should be confirmed by repeat testing. In a patient with classic symptoms of hyperglycemia or hyperglycemic crisis, random plasma glucose results greater than or equal to 200 mg/dL meet the criteria for diagnosis of diabetes. Reference: Standards of Medical Care in Diabetes 2016, [place] [employer] Association. Diabetes Care. 2016.39(Suppl 1). Performed By: #### 3 3762-6, 32116-2, 39829-4, [id number] #### [facility] CLIA [id number] [address] [place] [address] [place] Potassium [Moles/Vol] 4.1 mmol/L Normal 3.7-5.1 [facility] Comment on above: Order Comment: [place] roy Type: BLOOD SPECIMEN [facility] Address: [address] [place] [address] Performed By: #### 3 3762-6, , , [id number] #### [facility] CLIA [id number] [address] [place] [address] [place] Protein [Mass/Vol] 8.4 g/dL High 6.3-8.0 [facility] Comment on above: Order Comment: [place] roy Type: BLOOD SPECIMEN [facility] Address: [address] [place] [address] Performed By: #### 3 3762-6, , 29625-7, [id number] #### [facility] CLIA [id number] [address] [place] [address] [place] Sodium [Moles/Vol] 139 mmol/L Normal 136-144 [facility] Comment on above: Order Comment: Kenya roy Type: BLOOD SPECIMEN [facility] Address: [address] [place] [address] Performed By: #### 3 3762-6, , 88253-3, [id number] #### [facility] CLIA [id number] [address] [place] [address] [place] Urea nitrogen [Mass/Vol] 19 mg/dL Normal 9-24 [facility] Comment on above: Order Comment: Speci men Type: BLOOD SPECIMEN [facility] Address: [address] [place] [id number] Performed By: #### 3 3762-6, 71519-4, 78572-7, [id number] #### [facility] CLIA [id number] [address] [place] [address] [facility] ED PROV NOTEon 12-18-2024 ED PROV NOTE HNO ID: [id number] Author: CADY WALDRON DO Service: Emergency Medicine Author Type: Physician Type: ED Provider Notes Filed: 12/19/2024 06:26 Note Text: ED Provider Note Patient Name: Arvind Domínguez : 1975 SERVICE DATE: 12/18/24 History No chief complaint on file. Arvind Domínguez is a 49-year-old male with history of autism, GERD, mental disability, schizophrenia, vitamin D deficiency, presents for concern that he may not be feeling well. Patient's sister, his POA notes the past 2 weeks he has been seeming like he does not feel well. She states he has not been eating as much. She also notes that he had his hand in his chest today. She is not sure if he was having pain or not. He has not had a cough. She notes she checks his oxygen level at home and it was ranging from 86 to 92%. PAST MEDICAL HISTORY Diagnosis Date Autism GERD (gastroesophageal reflux disease) Mental disability Schizophrenia (HCC) Underweight due to inadequate caloric intake Vitamin D deficiency No past surgical history on file. No family history on file. Social History Tobacco Use Smoking status: Never Smokeless tobacco: Never Substance and Sexual Activity Alcohol use: Never Drug use: Never Sexual activity: Not on file ALLERGIES No Known Allergies Review of Systems Constitutional: Positive for appetite change. Negative for fever. Respiratory: Negative for cough. Physical Exam Vitals BP Pulse Temp Temp src Resp SpO2 Weight Height -- -- -- -- -- -- -- -- Physical Exam Vitals and nursing note reviewed. Constitutional: General: He is not in acute distress. Appearance: Normal appearance. He is well-developed. He is not diaphoretic. Comments: Patient is nonverbal HENT: Head: Normocephalic and atraumatic. Right Ear: Tympanic membrane normal. Left Ear: Tympanic membrane normal. Nose: Nose normal. Mouth/Throat: Mouth: Mucous membranes are moist. Pharynx: No oropharyngeal exudate. Eyes: General: No scleral icterus. Conjunctiva/sclera: Conjunctivae normal. Pupils: Pupils are equal, round, and reactive to light. Neck: Vascular: No JVD. Trachea: No tracheal deviation. Cardiovascular: Rate and Rhythm: Normal rate and regular rhythm. Heart sounds: Normal heart sounds. No murmur heard. No friction rub. No gallop. Pulmonary: Effort: Pulmonary effort is normal. No respiratory distress. Breath sounds: Normal breath sounds. No stridor. No wheezing or rales. Abdominal: General: Bowel sounds are normal. There is no distension. Palpations: Abdomen is soft. There is no mass. Tenderness: There is no abdominal tenderness. There is no guarding or rebound. Hernia: No hernia is present. Musculoskeletal: General: No swelling or deformity. Normal range of motion. Cervical back: Neck supple. Right lower leg: No edema. Left lower leg: No edema. Skin: General: Skin is warm and dry. Capillary Refill: Capillary refill takes less than 2 seconds. Findings: No erythema. Neurological: Mental Status: He is alert. Mental status is at baseline. Psychiatric: Behavior: Behavior normal. Thought Content: Thought content normal. Judgment: Judgment normal. Diagnostic Testing ED Labs Ordered and Reviewed - No data to display Procedures ED Course / Clinical Impression ED Course as of 12/19/24 0624 Cady Waldron's Documentation SatDec 18, [id number] Initial and repeat troponin is 12 2350 Magnesium normal. CBC unremarkable. CMP unremarkable 2350 XR CHEST 1V FRONTAL PORT Clinical Impressions as of 12/19/24 0624 Normal physical exam Decrease in appetite MDM / Disposition / Plan Course: Vital signs were reviewed. Triage records were reviewed. Medical records were reviewed. Nursing notes were reviewed and incorporated. Medical Decision Making: Arvind Domínguez is a 49-year-old male that presents for concern his oxygen level was low. Patient's sister also thought maybe he had chest pain because he had his hand over his chest. She states he puts his hand over other body parts though as well and is not sure if he is having pain. On exam, he is in no distress. He is afebrile. Pulse ox 97% on room air. Heart is regular rate rhythm. Lungs are clear. TMs without erythema bulging retraction. Oropharynx pink and moist. No rashes identified. Abdomen soft, nontender, nondistended. No leg edema. Labs and chest x-ray ordered. Cardiac enzymes ordered. CMP shows alk phos of 235 which is chronic. Renal function normal. Magnesium normal. CBC unremarkable. BNP is normal. Troponin is 12. Repeat pending. EKG shows normal sinus rhythm with rate of 67, no ischemic change CXR neg per radiology. Repeat HST 13, he rules out for NM. Pt's sister updated with results. I do not feel he requires admission. He has not been hypoxic in the ED. VSS. The attending who evaluated and managed this patient was Cady Waldron . History and Flakito (more content not included)... Normal [facility] EKGon 12-18-2024 Electrocardiogram Ventricular Rate : 6 7 BPM Atrial Rate : 67 BPM P-R Interval : 168 ms QRS Duration : 86 ms Q-T Interval : 376 ms QTC Calculation(Bazett) : 397 ms Calculated P [place] : 38 degrees Calculated R [place] : 56 degrees Calculated T [place] : 57 degrees NORMAL SINUS RHYTHM NORMAL ECG No Stemi Confirmed by RAMONITA PEREZ MD ([id number]) on 12/18/2024 9:53:10 PM NAME : ARVIND DOMÍNGUEZ PID : [id number] : 1975 Gender : Male Race : ORD : Procedure Date : Dec 18 2024 21:32:10 Edit Date : Dec 18 2024 21:53:14 Diagnosis: NORMAL SINUS RHYTHM NORMAL ECG No Stemi Confirmed by RAMONITA PEREZ MD ([id number]) on 12/18/2024 9:53:10 PM Test Reason : Location : 1 : ER ED Overread By : RAMONITA PEREZ MD Edited By : RAMONITA PEREZ MD Referred By : , Acquired by : wi, Normal [facility] HIGH SENSITIVITY TROPONIN T (INITIAL)on 12-18-2024 Troponin T.cardiac High sensitivity method [Mass/Vol] 12 ng/L High <12 [facility] Comment on above: Order Comment: Speci men Type: BLOOD SPECIMEN Ordering Facility: [facility] Address: [address] [place] [address] Performed By: #### 3 3762-6, 10694-5, 20286-4, [id number] #### [facility] CLIA [id number] [address] HIGH SENSITIVITY TROPONIN T (SECOND)on 12-18-2024 Troponin T.cardiac High sensitivity method [Mass/Vol] 12 ng/L High <12 [facility] Comment on above: Order Comment: Speci men Type: BLOOD SPECIMEN Ordering Facility: [facility] Address: [address] [place] [address] Performed By: #### L [id number] #### [facility] CLIA [id number] [address] [facility] Magnesium [Mass/Vol] 2.3 mg/dL Normal 1.7-2.3 [facility] Comment on above: Order Comment: Speci men Type: BLOOD SPECIMEN Ordering Facility: [facility] Address: [address] [place] [address] Performed By: #### 3 3762-6, 99266-4, 16192-9, [id number] #### [facility] CLIA [id number] [address] NT-proBNP [facility]-18 Natriuretic peptide.B prohormone N-Terminal [Mass/Vol] <36 Normal <125 [facility] Comment on above: Order Comment: Speci men Type: BLOOD SPECIMEN Ordering Facility: [facility] Address: [address] [place] [address] Performed By: #### 3 3762-6, 97600-2, 10550-8, [id number] #### [facility] CLIA [id number] [address] [place] XR CHEST 1V FRONTAL PORTon 0 12-18-2024 XR CHEST 1V FRONTAL PORT * * *Final Report* * * DATE OF EXAM: Dec 18 2024 10:33PM MDX [id number] - XR CHEST 1V FRONTAL PORT / PROCEDURE REASON: Chest pain * * * * Physician Interpretation * * * * EXAMINATION: CHEST RADIOGRAPH (PORTABLE SINGLE VIEW AP) Exam Date/Time: 12/18/2024 10:33 PM CLINICAL HISTORY: Chest pain MQ: XCPR_5 Comparison: 07/01/2024 RESULT: Lines, tubes, and devices: None. Lungs and pleura: No consolidation. No lung mass. No pleural effusion. Cardiomediastinal silhouette: Normal cardiomediastinal silhouette. IMPRESSION: No acute radiographic abnormality. Process Control Supervisor: PSCB Transcribe Date/Time: Dec 18 2024 10:45P Dictated by : MARLON GUTIERREZ MD This examination was interpreted and the report reviewed and electronically signed by: MARLON GUTIERREZ MD on Dec 18 2024 10:46PM EST [id number] Normal [facility] Absolute lymphocyte countOrd ered By: Marcus Delatorre on 12-09-2024 Lymphocytes Auto (Unsp spec) [#/Vol] 1.35 10*3/uL 0.83-4.51 [facility] Absolute neutrophil countOrd ered By: Marcus Delatorre on 12-09-2024 Neutrophils (Bld) [#/Vol] 5.3 10*3/uL 2.0-7.7 [facility] Anion gap in Serum or Plasma Ordered By: Marcus Delatorre on 12-09-2024 Anion gap [Moles/Vol] 11 mmol/L 5-15 [facility] Automated lymphocyte count a s percentage of total leukocytesOrdered By: Marcus Delatorre on 12-09-2024 Lymphocytes/100 WBC Auto (Unsp spec) 17.7 % Low 19-41 [facility] BUN/creatinine ratioOrdered By: Marcus Delatorre on 12-09-2024 Urea nitrogen/Creatinine [Mass ratio] 16.8 mg/mg 10- [facility] Basic Metabolic Profile (BMP )on 12-09-2024 BUN/CRE 16.8 RATIO Normal - [facility] Comment on above: Performed By: #### L 100.0100, L500.2500 #### [facility] [address] [place], [address] Calcium [Mass/Vol] 9.6 mg/dL Normal 7.6-11.0 [facility] Comment on above: Performed By: #### L 100.0100, L500.2500 #### [facility] [address] [place], [address] Chloride [Moles/Vol] 104 mmol/L Normal 98-108 [facility] Comment on above: Performed By: #### L 100.0100, L500.2500 #### [facility] [address] [place], [address] CO2 [Moles/Vol] 21.7 mmol/L Normal 21.0-32.0 [facility] Comment on above: Performed By: #### L 100.0100, L500.2500 #### [facility] [address] [place], [address] Creatinine [Mass/Vol] 0.85 mg/dL Normal 0.70-1.20 [facility] Comment on above: Performed By: #### L 100.0100, L500.2500 #### [facility] [address] [place], [address] ECRCL 110.26 ml/min Normal 50-250 [facility] Comment on above: Performed By: #### L 100.0100, L500.2500 #### [facility] [address] [place], [address] GAP 11 Normal 5-15 [facility] Comment on above: Performed By: #### L 100.0100, L500.2500 #### [facility] [address] [place], [address] GFR/1.73 sq M.predicted among non-blacks MDRD (S/P/Bld) [Vol rate/Area] 107 mL/min/{1.73_m2} Normal >60 [facility] Comment on above: Result Comment: mL/m in/1.73m2 CKD-EPI Creatinine Equation (2020) Performed By: #### L 100.0100, L500.2500 #### [facility] [address] [place], [address] Glucose [Mass/Vol] 139 mg/dL High 70-99 [facility] Comment on above: Performed By: #### L 100.0100, L500.2500 #### [facility] [address] [place], [address] Potassium [Moles/Vol] 4.3 mmol/L Normal 3.3-5.1 [facility] Comment on above: Performed By: #### L 100.0100, L500.2500 #### [facility] [address] [place], [address] Sodium [Moles/Vol] 137 mmol/L Normal 133-145 [facility] Comment on above: Performed By: #### L 100.0100, L500.2500 #### [facility] [address] [place], [address] Urea nitrogen [Mass/Vol] 14 mg/dL Normal 4-19 [facility] Comment on above: Performed By: #### L 100.0100, L500.2500 #### [facility] [address] [place], [address] Basophil percentageOrdered B y: Marcus Delatorre on 12-09-2024 Basophils/100 WBC (Bld) 0.3 % 0-1 [facility] Bilirubin Test strip Ql (U)O rdered By: Marcus Delatorre on 12-09-2024 Bilirubin Ql (U) Negative Negative [facility] CBC W/Diff, Automatedon -2 Absolute Lymph 1.35 X10 3/uL Normal 0.83-4.51 [facility] Comment on above: Performed By: #### L 100.0100, L500.2500 #### [facility] [address] [place], [address] Absolute Neut 5.3 X10 3/uL Normal 2.0-7.7 [facility] Comment on above: Performed By: #### L 100.0100, L500.2500 #### [facility] [address] [place], [address] Basophils/100 WBC (Bld) 0.3 % Normal 0-1 [facility] Comment on above: Performed By: #### L 100.0100, L500.2500 #### [facility] [address] [place], [address] Eosinophils/100 WBC (Bld) 3.5 % Normal 0-5 [facility] Comment on above: Performed By: #### L 100.0100, L500.2500 #### [facility] [address] [place], [address] Erythrocyte distribution width (RBC) [Ratio] 13.2 % Normal 11.6-14.6 [facility] Comment on above: Performed By: #### L 100.0100, L500.2500 #### [facility] [address] [place], [address] Hematocrit (Bld) [Volume fraction] 42.3 % Normal 40-54 [facility] Comment on above: Performed By: #### L 100.0100, L500.2500 #### [facility] [address] [place], [address] Hemoglobin (Bld) [Mass/Vol] 13.8 g/dL Normal 13.0-16.5 [facility] Comment on above: Performed By: #### L 100.0100, L500.2500 #### [facility] [address] [place], [address] IG% 0.400 Normal 0.0-0.9 [facility] Comment on above: Result Comment: IG% - Immature Granulocytes (promyelocytes, myelocytes and metamyelocytes) > 1% indicates that a LEFT SHIFT is Present. Performed By: #### L 100.0100, L500.2500 #### [facility] [address] [place], [address] Lymphocytes/100 WBC (Bld) 17.7 % Low 19-41 [facility] Comment on above: Performed By: #### L 100.0100, L500.2500 #### [facility] [address] [place], [address] MCH (RBC) [Entitic mass] 27.7 pg Normal 27.0-32.0 [facility] Comment on above: Performed By: #### L 100.0100, L500.2500 #### [facility] [address] [place], [address] MCHC (RBC) [Mass/Vol] 32.6 g/dL Normal 32-36 [facility] Comment on above: Performed By: #### L 100.0100, L500.2500 #### [facility] [address] [place], [address] MCV (RBC) [Entitic vol] 84.9 fL Normal 80-94 [facility] Comment on above: Performed By: #### L 100.0100, L500.2500 #### [facility] [address] [place], [address] Monocytes/100 WBC (Bld) 8.0 % Normal 0-10 [facility] Comment on above: Performed By: #### L 100.0100, L500.2500 #### [facility] [address] [place], [address] Neutrophils/100 WBC (Bld) 70.1 % High 47-70 [facility] Comment on above: Performed By: #### L 100.0100, L500.2500 #### [facility] [address] [place], [address] Nucleated RBC (Bld) [#/Vol] 0 10*3/uL Normal 0-5 [facility] Comment on above: Performed By: #### L 100.0100, L500.2500 #### [facility] [address] [place], [address] Platelet mean volume (Bld) [Entitic vol] 11.3 fL Normal 6.2-12.0 [facility] Comment on above: Performed By: #### L 100.0100, L500.2500 #### [facility] [address] [place], [address] Platelets (Bld) [#/Vol] 227 10*3/uL Normal 150-450 [facility] Comment on above: Performed By: #### L 100.0100, L500.2500 #### [facility] [address] [place], [address] RBC (Bld) [#/Vol] 4.98 10*6/uL Normal 4.6-6.2 [facility] Comment on above: Performed By: #### L 100.0100, L500.2500 #### [facility] [address] [place], [address] RDW SD 41.1 fl Normal 35.1-43.9 [facility] Comment on above: Performed By: #### L 100.0100, L500.2500 #### [facility] [address] [place], [address] WBC (Bld) [#/Vol] 7.6 10*3/uL Normal 4.4-11.0 [facility] Comment on above: Performed By: #### L 100.0100, L500.2500 #### [facility] [address] [place], [address] Carbon dioxide, total [Moles /volume] in Central venous bloodOrdered By: Marcus Delatorre on 12-09-2024 CO2 [Moles/Vol] 21.7 mmol/L 21.0-32.0 [facility] Chloride assayOrdered By: [place] Delatorre on 12-09-2024 Chloride [Moles/Vol] 104 mmol/L 98-108 [facility] Emergency Department Summary on 12-09-2024 Emergency Department Summary [facility] Medical Records Department [address] [place] [address] Emergency Department Summary 12/09/24 MR#: [id number] Acct: [id number] Name: ARVIND DOMÍNGUEZ Rep #: [id number] : 1975 49 From: Marcus Delatorre MD PCP: Niraj Andino, [employer] Status:REG ER Location: ED HPI History of Present Illness Chief Complaint: General Illness Narrative Narrative: History and physical limited secondary to autism and schizophrenia. Per python developer and sister who is his legal guardian, over the last week he has had behavioral problems where he was hitting his head against the wall and is more agitated. She states that he has been pulling at his right ear as well but 2 weeks ago she took him to urgent care and they said that there was no evidence of infection. He has not had any fevers. They present him to the emergency department not knowing if this is an exacerbation more of his autism and behavioral change versus something physical. His sister noticed that his urine was dark over the last week, but he has been drinking more fluids and that has cleared up. Essentially, they are presenting him for medical screening. [facility] Medical History Rash Low iron Non-smoker Schizophrenia GERD (gastroesophageal reflux disease) Autism Home Medications ???Medication ???Instructions ???Recorded ???Last Taken ???Type ferrous sulfate 220 mg (44 mg 325.6 mg PO .COMPLEX 06/17/2411/18 History iron)/5 mL oral solution mirtazapine 15 mg disintegrating 15 mg PO DAILY 06/17/24 12/08/24 H istory tablet esomeprazole magnesium 40 mg 40 mg PO QDAY #30 ea 09/03/2411/18 Rx granules delayed release for susp ascorbic acid (vitamin C) 500 mg 1 g PO DAILY 12/09/24 12/09/24 His tory chewable tablet (Acerola C) atorvastatin 20 mg/5 mL (4 mg/mL) 20 mg PO DAILY 12/09/24 12/09/24 History oral suspension (AtorvaliQ) calcium citrate 760 mg PO DAILY 12/09/24 12/09/24 History ergocalciferol (vitamin D2) 1,250 1,250 mcg PO QWEEK 12/09/2412/08 History mcg (50,000 unit) capsule levocetirizine 2.5 mg/5 mL oral 2.5 mg PO DAILY 12/09/24 12/09/24 History solution (Xyzal) magnesium 250 mg tablet 250 mg PO DAILY 12/09/24 12/09/24 History mecobalamin (vitamin B12) 1,000 1,000 mcg PO DAILY 12/09/24 History mcg chewable tablet olanzapine 15 mg disintegrating 15 mg PO DAILY 12/09/24 12/08/24 H istory tablet pedi nutrition,iron,lact-free 5 1 ea PO DAILY 12/09/24 12/09/24 Hi story gram-180 kcal/36 gram oral powder (Else Toddler [place]) Allergy/AdvReac Type Severity Reaction Status Date / Time No Known Allergies Allergy Verified 12/09/24 14:20 Family History Mother Lung cancer Heart disease Father Lung cancer Surgical History History of esophagogastroduodenoscopy (EGD) Social History household members: family Smoking Status: Never smoker ROS ROS ED ROS Narrative Review of systems positive for behavioral change, increased agitation, more aggressive behavior. No fevers or chills, no nausea or vomiting. Dark urine last week but that has resolved. Additionally, complained of ear pain for 2 weeks and tugging at right ear. EXAM Physical Exam Narrative Exam Narrative: Physical exam limited secondary to autism. HEENT examination grossly unremarkable. No pain with movement of right auricle, no TM erythema. No mastoid tenderness or erythema. Neck soft and supple without meningismus. Moist mucous membranes. Cardiovascular examination regular rate and rhythm lungs clear to auscultation bilaterally. Abdomen soft, nontender, with positive bowel sounds. No guarding or rebound. Neurological examination nonfocal, nonlateralizing, consistent with autism. Cooperative. Const Vital Signs: 12/09/24 14:18 12/09/24 15:59 12/09/24 15:59 Temperature 97.9 F 97.8 F Temperature Source Oral Oral Pulse Rate 90 90 Respiratory Rate 16 16 Respiratory Effort Normal Respiratory Pattern Normal Blood Pressure 140/94 H 140/94 H Blood Pressure Mean 109 109 Pulse Ox 98 98 Oxygen Delivery Method Room Air Room Air 12/09/24 16:00 12/09/24 18:00 Temperature 97.8 F Temperature Source Oral Pulse Rate 69 73 Respiratory Rate 15 16 Respiratory Effort Respiratory Pattern Blood Pressure 134/88 H 129/90 H Blood Pressure Mean 103 103 Pulse Ox 97 99 Oxygen Delivery Method Room Air Room Air MDM MDM MDM Narrative Medical decision making narrative: Differential diagnosis includes but not limited to dehydration versus other electrolyte abnormality v (more content not included)... Normal [facility] Eosinophil percentageOrdered By: Marcus Delatorre on 12-09-2024 Eosinophils/100 WBC (Bld) 3.5 % 0-5 [facility] Erythrocyte distribution wid th ratioOrdered By: Marcus Delatorre on 12-09-2024 Erythrocyte distribution width (RBC) [Ratio] 13.2 % 11.6-14.6 [facility] Erythrocyte distribution wid th standard deviationOrdered By: Marcus Delatorre on 12-09-2024 Erythrocyte distribution width (RBC) [Ratio] 41.1 fl 35.1-43.9 [facility] Glomerular filtration rate ( GFR) estimation/1.73 sq m using serum, plasma, or whole bOrdered By: Marcus Delatorre on 12-09-2024 GFR/1.73 sq M.predicted among non-blacks MDRD (S/P/Bld) [Vol rate/Area] 107 mL/min/{1.73_m2} >60 [facility] Comment on above: mL/min/1.73m2 CKD-EP I Creatinine Equation (2020) Hematocrit Auto (Bld) [Volum e fraction]Ordered By: Marcus Delatorre on 12-09-2024 Hematocrit (Bld) [Volume fraction] 42.3 % 40-54 [facility] Hemoglobin measurementOrdere d By: Marcus Delatorre on 12-09-2024 Hemoglobin (Bld) [Mass/Vol] 13.8 g/dL 13.0-16.5 [facility] Immature granulocytes/100 WB C Auto (Bld)Ordered By: Marcus Delatorre on 12-09-2024 Immature granulocytes/100 WBC (Bld) 0.400 % 0.0-0.9 [facility] Comment on above: IG% - Immature Granu locytes (promyelocytes, myelocytes and metamyelocytes) > 1% indicates that a LEFT SHIFT is Present. Ketones Test strip Ql (U)Ord ered By: Marcus Delatorre on 12-09-2024 Ketones Ql (U) Negative Negative [facility] MCV (mean corpuscular volume ) determinationOrdered By: Marcus Delatorre on 12-09-2024 MCV (RBC) [Entitic vol] 84.9 fL 80-94 [facility] Mean corpuscular hemoglobin (MCH) determinationOrdered By: Marcus Delatorre on 12-09-2024 MCH (RBC) [Entitic mass] 27.7 pg 27.0-32.0 [facility] Mean corpuscular hemoglobin concentration (MCHC) determinationOrdered By: Marcus Delatorre on 12-09-2024 MCHC (RBC) [Mass/Vol] 32.6 g/dL 32-36 [facility] Mean platelet volume determi nationOrdered By: Marcus Delatorre on 12-09-2024 Platelet mean volume (Bld) [Entitic vol] 11.3 fL 6.2-12.0 [facility] Microscopic analysis of urin e for red blood cells (RBC)Ordered By: Marcus Delatorre on 12-09-2024 Microscopic analysis of urine for red blood cells (RBC) 0-5 SEEN /hpf 0-5 [facility] Monocyte percentageOrdered B y: Marcus Delatorre on 12-09-2024 Monocytes/100 WBC (Bld) 8.0 % 0-10 [facility] Mucus LM Ql (Urine sed)Order ed By: Marcus Delatorre on 12-09-2024 Mucus Ql (Urine sed) 0 SEEN /hpf [facility] Neutrophil percentageOrdered By: Marcus Delatorre on 12-09-2024 Neutrophils/100 WBC (Bld) 70.1 % High 47-70 [facility] Nitrite Test strip Ql (U)Ord ered By: Marcus Delatorre on 12-09-2024 Nitrite Ql (U) Negative Negative [facility] Nucleated red blood cell per centageOrdered By: Marcus Delatorre on 12-09-2024 Nucleated RBC/100 WBC (Bld) [Ratio] 0 % 0-5 [facility] Platelet countOrdered By: [place] Delatorre on 12-09-2024 Platelets (Bld) [#/Vol] 227 10*3/uL 150-450 [facility] Potassium measurement (mass/ volume)Ordered By: Marcus Delatorre on 12-09-2024 Potassium (Unsp spec) [Mass/Vol] 4.3 mmol/L 3.3-5.1 [facility] Protein Test strip Ql (U)Ord ered By: Marcus Delatorre on 12-09-2024 Protein Ql (U) Negative Negative [facility] RBC Auto (Bld) [#/Vol]Ordere d By: Marcus Delatorre on 12-09-2024 RBC (Bld) [#/Vol] 4.98 10*6/uL 4.6-6.2 [facility] Serum creatinine measurement (mass/volume)Ordered By: Marcus Delatorre on 12-09-2024 Creatinine [Mass/Vol] 0.85 mg/dL 0.70-1.20 [facility] Serum glucose measurement (m ass/volume)Ordered By: Marcus Delatorre on 12-09-2024 Glucose [Mass/Vol] 139 mg/dL High 70-99 [facility] Serum or plasma calcium luci urement (mass/volume)Ordered By: Marcus Delatorre on 12-09-2024 Calcium [Mass/Vol] 9.6 mg/dL 7.6-11.0 [facility] Serum or plasma urea nitroge n measurement (mass/volume)Ordered By: Marcus Delatorre on 12-09-2024 Urea nitrogen [Mass/Vol] 14 mg/dL 4-19 [facility] Sodium levelOrdered By: Marcus Delatorre on 12-09-2024 Sodium [Moles/Vol] 137 mmol/L 133-145 [facility] Squamous epithelial cells de tection in urine sediment by light microscopyOrdered By: Marcus Delatorre on 12-09-2024 Epithelial cells.squamous LM Ql (Urine sed) 0-5 SEEN /hpf 0-5 [facility] Urinalysis, Completeon 12-09 EPI,SQUAMOUS 0-5 SEEN Normal 0-5 [facility] Comment on above: Order Comment: CLEAN CATCH Performed By: #### L 400.0001 #### [facility] [address] [place], [address] RBC 0-5 SEEN Normal 0-5 [facility] Comment on above: Order Comment: CLEAN CATCH Performed By: #### L 400.0001 #### [facility] [address] [place], [address] WBC 0-5 SEEN Normal 0-5 [facility] Comment on above: Order Comment: CLEAN CATCH Performed By: #### L 400.0001 #### [facility] [address] [place], [address] BACTERIA 0 SEEN Normal None Seen [facility] Comment on above: Order Comment: CLEAN CATCH Performed By: #### L 400.0001 #### [facility] [address] [place], [address] Mucus Ql (Urine sed) 0 SEEN Normal [facility] Comment on above: Order Comment: CLEAN CATCH Performed By: #### L 400.0001 #### [facility] [address] [place], [address] Urine clarityOrdered By: Emmanuelle Delatorre on 12-09-2024 Clarity (U) Clear Clear [facility] Urine color determinationOrd ered By: Marcus Delatorre on 12-09-2024 Color (U) Straw Yellow [facility] Urine glucose detectionOrder ed By: Marucs Delatorre on 12-09-2024 Glucose Ql (U) Normal mg/dl Normal [facility] Urine leukocyte esterase det ection by dipstickOrdered By: Marcus Delatorre on 12-09-2024 Leukocyte esterase Test strip Ql (U) Negative Negative [facility] Urine pHOrdered By: Marcus skelton on 12-09-2024 pH (U) 7.0 [pH] 5.0 - 8.0 [facility] Urine sediment bacteria coun t by microscopy (number/high power field)Ordered By: Marcus Delatorre on 12-09-2024 Bacteria LM.HPF (Urine sed) [#/Area] 0 /[HPF] None Seen [facility] Urine specific gravity measu rementOrdered By: Marcus Delatorre on 12-09-2024 Specific gravity (U) [Rel density] 1.005 1.002-1.03 0 [facility] Urine urobilinogen measureme ntOrdered By: Marcus Delatorre on 12-09-2024 Urobilinogen Ql (U) Normal mg/dl Normal [facility] White blood cell (WBC) count Ordered By: Marcus Delatorre on 12-09-2024 WBC (Bld) [#/Vol] 7.6 10*3/uL 4.4-11.0 [facility] White blood cell countOrdere d By: Marcus Delatorre on 12-09-2024 White blood cell count 0-5 SEEN /hpf 0-5 [facility] CNOVon 11-16-2024 [facility] Office Visit (UCTR ) ARVIND DOMÍNGUEZ ([id number]) 1975 M GRD Date Time Provider Department 11/16/24 2:15 PM [facility] During your visit today, we recorded the following information about you: Temperature Pulse Respiration Blood pressure 97.2 degrees 86/minute 16/minute 110/72 Weight 72.7 kg Alize Villa APRN.CNP 11/16/2024 3:25 PM Signed [facility] Subjective Arvind Domínguez is a 49 year old male. Patient presents with: Ear Pain Ear Pain Pertinent negatives include no fatigue or fever. Patient is a 49 year old male with limited language do to his autism. His sister is with him and He has complained about his left ear and is constantly sticking his fingers in it. No fevers, still eating and drinking within normal limits. They have gone and seen ENT at [facility] where has significant hearing loss in that left ear. Review of Systems Constitutional: Negative for activity change, appetite change, fatigue and fever. HENT: Positive for ear pain. Negative for ear discharge. Objective BP 110/72 Pulse 86 Temp 36.2 ?C (97.2 ?F) Resp 16 Wt 72.7 kg (160 lb 4.4 oz) SpO2 97% BMI 23.00 kg/m? PAST MEDICAL HISTORY Diagnosis Date Autism GERD (gastroesophageal reflux disease) Mental disability Schizophrenia (HCC) Underweight due to inadequate caloric intake Vitamin D deficiency No past surgical history on file. ALLERGIES Patient has no known allergies. MEDICATIONS levocetirizine (XYZAL) 2.5 mg/5 mL solution Take 5 mg by mouth once daily. ergocalciferol 50,000 unit capsule (VITAMIN D2, DRISDOL) Take 1 capsule by mouth one time a week. ferrous sulfate 220 mg/5 mL elix Take 7.4 mL by mouth once daily. atorvastatin (ATORVALIQ) 20 mg/5 mL (4 mg/mL) suspension Take 5 mL by mouth once daily. clarithromycin (BIAXIN) 250 mg tablet Take by mouth two times a day. Dr Chong KAOPECTATE, ATTAPULGITE, ORAL Take by mouth. Dr Chong Lactobac no.41/Bifidobact no.7 (PROBIOTIC-10 ORAL) Take by mouth. Gummies - Dr. Chong calcium carbonate (CALCIUM ANTACID) 500 mg chew Take 2 tablets by mouth once daily. cyanocobalamin (VITAMIN B-12) 1,000 mcg tab Take 1 tablet by mouth once daily. Takes as a gummie selenium 50 mcg tab Take 1 tablet by mouth once daily. Takes as a gummie Zinc Sulfate 25 mg zinc (110 mg) tab Take 25 tablets by mouth once daily. Takes as a gummie omega-3 DHA-EPA (FISH OIL) 1,200 (144-216) mg capsule Take 1 capsule by mouth daily with breakfast. ascorbic acid, vitamin C, (VITAMIN C) 500 mg tablet Take 1 tablet by mouth once daily. diphenhydrAMINE (BENADRYL) 25 mg capsule Take 1-2 capsules by mouth at bedtime as needed. food supplemt, lactose-reduced (BOOST MEN) 0.08 gram- 0.9 kcal/mL liqd Take 1 Bottle by mouth two times a day before meals. mirtazapine (REMERON) 15 mg tablet Take 15 mg by mouth daily at bedtime. melatonin 10 mg chew Take 1 Each by mouth once daily. pantoprazole DR (PROTONIX) 40 mg tablet Take 1 tablet by mouth once daily. (capsule) fluticasone (FLONASE) 50 mcg/actuation nasal spray Use 1 Casanova in each nostril once daily. OLANZapine orally disintegrating (ZYPREXA ZYDIS) 5 mg disintegrating tablet Take 5 mg by mouth daily at bedtime. Nutritional Supplements (ENSURE PUDDING) pudg Take 113 g by mouth twice daily. No family history on file. Social History Tobacco Use Smoking status: Never Smokeless tobacco: Never Substance Use Topics Alcohol use: Never Drug use: Never Physical Exam Vitals and nursing note reviewed. Constitutional: General: He is not in acute distress. Appearance: Normal appearance. He is normal weight. He is not toxic-appearing. HENT: Head: Atraumatic. No contusion, right periorbital erythema or left periorbital erythema. Salivary Glands: Right salivary gland is not diffusely enlarged or tender. Left salivary gland is not diffusely enlarged or tender. Right Ear: Tympanic membrane, ear canal and external ear normal. Left Ear: Tympanic membrane, ear canal and external ear normal. No drainage, swelling or tenderness. No middle ear effusion. There is no impacted cerumen. Eyes: Conjunctiva/sclera: Right eye: Right conjunctiva is not injected. No chemosis, exudate or hemorrhage. Left eye: Left conjunctiva is not injected. No chemosis, exudate or hemorrhage. Neurological: Mental Status: He is alert. {ASSESSMENT/PLAN: 1. Otalgia of left ear - ICD9: 388.70, ICD10: H92.02 - No signs of infection today. Follow up with ENT verse primary care if symptoms persist. Alize Villa APRN.UTILITY ENGINEER MDM patient well-appearing nontoxic in no acute distress 49-year-old male who is autistic mainly nonverbal presents with his sister. No concerns of ear infection such as perichondritis, otitis media, otitis externa or rupture tympanic membrane follow-up with ENT versus PCP if symptoms persist she (more content not included)... Normal [facility] Allergen Resp. Area 5on 06-2 3-2025 ALTERNARIA TEN <0.10 Normal Class 0 [facility] Comment on above: Performed By: #### L 5500.0700 #### [facility] [address] [place], [address] HELIO, WHITE <0.10 Normal Class 0 [facility] Comment on above: Performed By: #### L 5500.0700 #### [facility] [address] [place], [address] ASPERGILLUS FUM <0.10 Normal Class 0 [facility] Comment on above: Performed By: #### L 5500.0700 #### [facility] [address] [place], [address] BERMUDA GRASS <0.10 Normal Class 0 [facility] Comment on above: Performed By: #### L 5500.0700 #### [facility] [address] [place], [address] BIRCH <0.10 Normal Class 0 [facility] Comment on above: Performed By: #### L 5500.0700 #### [facility] [address] [place], [address] BLACK WALNUT <0.10 Normal Class 0 [facility] Comment on above: Performed By: #### L 5500.0700 #### [facility] [address] [place], [address] CAT HAIR/DANDER <0.10 Normal Class 0 [facility] Comment on above: Performed By: #### L 5500.0700 #### [facility] [address] [place], [address] CLADOSPOR HERB <0.10 Normal Class 0 [facility] Comment on above: Performed By: #### L 5500.0700 #### [facility] [address] [place], [place], [address] COCKROACH,AMER <0.10 Normal Class 0 [facility] Comment on above: Performed By: #### L 5500.0700 #### [facility] [address] [place], [address] COMMENT Comment Normal . [facility] Comment on above: Result Comment: Tariq corado of Specific IgE Class Description of Class ----- < 0.10 0 Negative 0.10 - 0.31 0/I Equivocal/Low 0.32 - 0.55 I Low 0.56 - 1.40 II Moderate 1.41 - 3.90 III High 3.91 - 19.00 IV Very High 19.01 - 100.00 V Very High >100.00 Very High Performed By: #### L 5500.0700 #### [facility] [address] [place], [address] COTTONWOOD <0.10 Normal Class 0 [facility] Comment on above: Performed By: #### L 5500.0700 #### [facility] [address] [facility] [address] D FARINAE MITE <0.10 Normal Class 0 [facility] Comment on above: Performed By: #### L 5500.0700 #### [facility] [address] [facility] [address] D PTERONYSSINUS <0.10 Normal Class 0 [facility] Comment on above: Performed By: #### L 5500.0700 #### [facility] [address] [facility] [address] DOG EPITHELIA <0.10 Normal Class 0 [facility] Comment on above: Performed By: #### L 5500.0700 #### [facility] [address] [place], [address] ELM,AMER WHITE <0.10 Normal Class 0 [facility] Comment on above: Performed By: #### L 5500.0700 #### [facility] [address] [place], [address] IMMUNOGLOB E 51 IU/mL Normal 6-495 [facility] Comment on above: Performed By: #### L 5500.0700 #### [facility] [address] [place], [address] MAPLE/BOX ELDER <0.10 Normal Class 0 [facility] Comment on above: Performed By: #### L 5500.0700 #### [facility] [address] [place], [address] MOUNTAIN CEDAR <0.10 Normal Class 0 [facility] Comment on above: Performed By: #### L 0.0700 #### [facility] [address] [place], [address] Mouse Urine <0.10 Normal Class 0 [facility] Comment on above: Performed By: #### L 0.0700 #### [facility] [address] [place], [address] MULBERRY,WHITE <0.10 Normal Class 0 [facility] Comment on above: Performed By: #### L 5500.0700 #### [facility] [address] [place], [address] OAK, WHITE <0.10 Normal Class 0 [facility] Comment on above: Performed By: #### L 5500.0700 #### [facility] [address] [place], [address] PECAN <0.10 Normal Class 0 [facility] Comment on above: Performed By: #### L 5500.0700 #### [facility] [address] [place], [address] PEN NOTATUM <0.10 Normal Class 0 [facility] Comment on above: Performed By: #### L 5500.0700 #### [facility] [address] [place], [address] PIGWEED, ROUGH <0.10 Normal Class 0 [facility] Comment on above: Performed By: #### L 5500.0700 #### [facility] [address] [place], [address] RAGWEED SH/COM <0.10 Normal Class 0 [facility] Comment on above: Performed By: #### L 5500.0700 #### [facility] [address] [place], [address] CAPE VERDEAN THISTLE <0.10 Normal Class 0 [facility] Comment on above: Performed By: #### L 5500.0700 #### [facility] [address] [place], [address] SHEEP SORREL <0.10 Normal Class 0 [facility] Comment on above: Result Comment: Perf ormed at: [facility] [id number] Mechanical Ordnance Assembler: Cris Poole MD, Phone: [phone] Performed By: #### L 5500.0700 #### [facility] [address] [place], [address] SYCAMORE, AMER <0.10 Normal Class 0 [facility] Comment on above: Performed By: #### L 5500.0700 #### [facility] [address] [place], [address] JEY GRASS <0.10 Normal Class 0 [facility] Comment on above: Performed By: #### L 5500.0700 #### [facility] [address] [place], [address] IgEOrdered By: on 11-03-2024 IgE 51 IU/mL 6-495 [facility] No Panel InformationOrdered By: Abdias on 11-03-2024 RAST Comment Comment . [facility] Comment on above: Levels of Specific I gE Class Description of Class ----- < 0.10 0 Negative 0.10 - 0.31 0/I Equivocal/Low 0.32 - 0.55 I Low 0.56 - 1.40 II Moderate 1.41 - 3.90 III High 3.91 - 19.00 IV Very High 19.01 - 100.00 V Very High >100.00 Very High Serum Vietnamese sycamore IgE antibody assay (units/volume)Ordered By: Abdias on 11-03-2024 Vietnamese [place] IgE Qn (S) <0.10 kU/L Class 0 [facility] Serum Aspergillus fumigatus IgE antibody assay (units/volume)Ordered By: Abdias on 11-03-2024 A. fumigatus IgE Qn (S) <0.10 kU/L Class 0 [facility] Serum Bermuda grass IgE anti body assay (units/volume)Ordered By: Abdias on 11-03-2024 Bermuda grass IgE Qn (S) <0.10 kU/L Class 0 [facility] Serum Cladosporium herbarum IgE antibody assay (units/volume)Ordered By: on 11-03-2024 C. herbarum IgE Qn (S) <0.10 kU/L Class 0 [facility] Serum Dermatophagoides ptero nyssinus specific IgE antibody assay (units/volume)Ordered By: Abdias on 11-03-2024 house dust mite IgE Qn (S) <0.10 kU/L Class 0 [facility] Serum Fraxinus americana IgE antibody assay (units/volume)Ordered By: Abdias on 11-03-2024 White Helio IgE Qn (S) <0.10 kU/L Class 0 [facility] Serum Rumex acetosella IgE a ntibody assay (units/volume)Ordered By: on 11-03-2024 Sheep [place] IgE Qn (S) <0.10 kU/L Class 0 [facility] Comment on above: Performed at: [address] [id number] Director: Cris Poole MD, Phone: [phone] Serum Zimbabwean thistle specif ic IgE antibody assayOrdered By: on 11-03-2024 Saltwort IgE Qn (S) <0.10 kU/L Class 0 [facility] Serum black walnut IgE antib gene assay (units/volume)Ordered By: on 11-03-2024 Black [place] IgE Qn (S) <0.10 kU/L Class 0 [facility] Serum cottonwood IgE antibod y assay (units/volume)Ordered By: on 11-03-2024 [place] IgE Qn (S) <0.10 kU/L Class 0 [facility] Serum dog epithelium IgE ant ibody assay (units/volume)Ordered By: on 11-03-2024 Dog epithelium IgE Qn (S) <0.10 kU/L Class 0 [facility] Serum mountain cedar specifi c IgE antibody assayOrdered By: on 11-03-2024 Mountain Juniper IgE Qn (S) <0.10 kU/L Class 0 [facility] Serum jey IgE antibody a ssay (units/volume)Ordered By: on 11-03-2024 Jey IgE Qn (S) <0.10 kU/L Class [address] [facility] Serum white elm IgE antibody assay (units/volume)Ordered By: on 11-03-2024 White Elm IgE Qn (S) <0.10 kU/L Class 0 [facility] Serum white mulberry IgE ant ibody assay (units/volume)Ordered By: on 11-03-2024 White mulberry IgE Qn (S) <0.10 kU/L Class 0 [facility] Gastroenterology Visit Repor ton 10-28-2024 Gastroenterology Visit Report [facility] [address] [place] [address] OFFICE VISIT Date of Service: 10/28/24 MR#: [id number] Acct: [id number] Name: ARVIND DOMÍNGUEZ Rep #: [id number] : 1975 Provider: ANTHONY Matthews Age/Sex: 49/M Location: [facility] Status: Signed Intake Vital Signs 07/07/24 16:38 Height 6 ft 1 in Weight: 158 lb 6.4 oz BMI 20.9 BP 127/89 H Respiration 20 H Pulse 105 H Temp 99.9 F H Temp Source Oral Pulse Oximetry (%) 97 Intake Visit Reasons: 2 M FU Chief Complaint: abd pain Allergies No Known Allergies Allergy (Verified 07/07/24 16:38) Medications ???Medication ???Instructions ???Recorded ???Confirmed ???Type cholecalciferol (vitamin D3) 25 25 mcg PO DAILY 12/06/22 06/17/24 History mcg (1,000 unit) capsule olanzapine 5 mg disintegrating 5 mg PO QHS #30 tabs 12/06/2205/21 Rx tablet omeprazole 40 mg capsule,delayed 40 mg PO DAILY #30 caps 12/06/22 0 10/28/24 Rx release ondansetron 8 mg disintegrating 8 mg PO Q8H PRN nausea and 4 06/17/24 Rx tablet vomiting #12 tabs dicyclomine 20 mg tablet 20 mg PO BID PRN abdominal pain 06/17/24 Rx #14 tabs cetirizine 10 mg tablet (24Hour 10 mg PO DAILY 06/17/24 06/17/24 H istory Allergy) ferrous sulfate 220 mg (44 mg 325.6 mg PO DAILY 06/17/24 5 History iron)/5 mL oral solution melatonin 10 mg capsule 10 mg PO QHS 06/17/24 06/17/24 His tory mirtazapine 15 mg disintegrating 15 mg PO DAILY 06/17/24 06/17/24 H istory tablet esomeprazole magnesium 40 mg 40 mg PO QDAY #30 ea 09/03/24 Rx granules delayed release for susp Nurse's Note: OV 10/28/24 Pt here for f/u and reports diarrhea, constipation, abdominal pain, gas, bloating and heartburn. Pt continues to take omeprazole daily. [facility] Medical History Rash Low iron Non-smoker Schizophrenia GERD (gastroesophageal reflux disease) Autism Surgical History History of esophagogastroduodenoscopy (EGD) Family History Mother Lung cancer Heart disease Father Lung cancer Social History household members: family Smoking Status: Never smoker HPI HPI Chief Complaint: abd pain Details: ARVIND DOMÍNGUEZ, is a 49 M who presents to the office today for f/u. I established 04.14.24 with epigastric pain and lack of appetite. Pt is mostly non-verbal and hx if taken form his sister. Pt on Protonix. Last EGD many years ago. He has constipation alternating with loose stools. EGD 06.18.24; - Normal esophagus. - Erythematous mucosa in the gastric body and antrum. Biopsied. - Erythematous duodenopathy. *H. pylori + treated with PPI, Clarithromycin and amoxicillin OV 4..25: Pt continues with intermittent abd pain. He did finish his course of antibiotics but discontinued PPI as his sister did not feel it was helping. He has loose stools frequently and constipation on occasion. His sister also mentions he has had elevated liver enzymes over the past few months. OV .25 Pt continues with intermittent epigastric pain but has improved. He continues to have alternating bowel movements with constipation and diarrhea. His sister notes that he was recently diagnosed with fatty liver. ROS Const Constitutional: No anorexia, fatigue, fever(s), weight change or sleep problems Eyes Eyes: No change in vision ENT ENT: No abnormal hearing, difficulty swallowing, mouth lesions, tongue swelling or throat swelling Resp Respiratory: No cough or shortness of breath Cardio Cardiology: No chest pain at rest, chest pain with exertion, shortness of breath or dyspnea on exertion Gastro GI: No difficulty swallowing Genitourinary Male: No difficulty urinating or burning urination Musc Musculoskeletal: No joint pain, joint swelling, muscle weakness or decreased muscle mass Skin Skin: No hair loss in leg, yellowing of the eye, itchy eyes, rash, skin ulcer or skin swelling Neuro Neurology: No abnormal hearing, abnormal movements, confusion, unsteady gait/balance or memory loss Psych Psychiatric: No anxiety, No confusion and No memory loss Endo Endocrine: No fatigue or weight change Aller/Imm Allergy/Immunologic: No itchy eyes, throat swelling or tongue swelling Estrada/Lymp Hematologic/Lymphatic: No easy bleeding, easy bruising or enlarged lymph nodes Exam Const General: cooperative Resp Effort Inspection: normal respiratory effort Cardio Rate: regular rate Rhythm: regular rhythm GI Inspection: normal to inspection Auscultation: normal bowel sounds Assessment an (more content not included)... [facility] (FAMPWS ) ARVIND DOMÍNGUEZ ([id number]) 1975 M GRD Date Time Provider Department 10/02/24 11:20 AM NIRAJ ANDINO During your visit today, we recorded the following information about you: Pulse Blood pressure Weight 94/minute 126/84 72 kg Niraj Andino APRN.[facility] 10/02/2024 11:39 AM Signed Chief Complaint Patient presents with: Cough Allergies: Sneezing HPI Arvind Domínguez is a 49 year old male who presents here today for Above Complaints.. Cough and Sneezing: - Increased coughing and sneezing. - Denies fever or abnormal behavior. - Difficulty drinking fluids, but this is not new. Hearing Loss: [facility] profound hearing loss noted, needs referral to ENT for hearing aids. Past medical history, appointments, medications, allergies reviewed. Previous Medical History PAST MEDICAL HISTORY Diagnosis Date Autism GERD (gastroesophageal reflux disease) Mental disability Schizophrenia (HCC) Underweight due to inadequate caloric intake Vitamin D deficiency Previous Surgical History No past surgical history on file. Family History No family history on file. Patient Allergies ALLERGIES No Known Allergies Current Medications Current Outpatient Medications on File Prior to Visit Medication Sig ergocalciferol 50,000 unit capsule (VITAMIN D2, DRISDOL) Take 1 capsule by mouth one time a week. ferrous sulfate 220 mg/5 mL elix Take 7.4 mL by mouth once daily. atorvastatin (ATORVALIQ) 20 mg/5 mL (4 mg/mL) suspension Take 5 mL by mouth once daily. clarithromycin (BIAXIN) 250 mg tablet Take by mouth two times a day. Dr Chong amoxicillin (AMOXIL) 250 mg/5 mL suspension Take by mouth three times a day. Dr Chong KAOPECTATE, ATTAPULGITE, ORAL Take by mouth. Dr Chong Lactobac no.41/Bifidobact no.7 (PROBIOTIC-10 ORAL) Take by mouth. Gummies - Dr. Chong cetirizine HCl (ZYRTEC) 10 mg chewable tablet Take 1 tablet by mouth once daily. calcium carbonate (CALCIUM ANTACID) 500 mg chew Take 2 tablets by mouth once daily. cyanocobalamin (VITAMIN B-12) 1,000 mcg tab Take 1 tablet by mouth once daily. Takes as a gummie selenium 50 mcg tab Take 1 tablet by mouth once daily. Takes as a gummie Zinc Sulfate 25 mg zinc (110 mg) tab Take 25 tablets by mouth once daily. Takes as a gummie omega-3 DHA-EPA (FISH OIL) 1,200 (144-216) mg capsule Take 1 capsule by mouth daily with breakfast. ascorbic acid, vitamin C, (VITAMIN C) 500 mg tablet Take 1 tablet by mouth once daily. diphenhydrAMINE (BENADRYL) 25 mg capsule Take 1-2 capsules by mouth at bedtime as needed. food supplemt, lactose-reduced (BOOST MEN) 0.08 gram- 0.9 kcal/mL liqd Take 1 Bottle by mouth two times a day before meals. mirtazapine (REMERON) 15 mg tablet Take 15 mg by mouth daily at bedtime. melatonin 10 mg chew Take 1 Each by mouth once daily. pantoprazole DR (PROTONIX) 40 mg tablet Take 1 tablet by mouth once daily. (capsule) fluticasone (FLONASE) 50 mcg/actuation nasal spray Use 1 Casanova in each nostril once daily. loratadine 10 mg dissolvable tablet Take 10 mg by mouth once daily. OLANZapine orally disintegrating (ZYPREXA ZYDIS) 5 mg disintegrating tablet Take 5 mg by mouth daily at bedtime. Nutritional Supplements (ENSURE PUDDING) pudg Take 113 g by mouth twice daily. No current facility-administered medications on file prior to visit. Social History Social History Tobacco Use Smoking status: Never Smokeless tobacco: Never Substance Use Topics Alcohol use: Never Drug use: Never Review of Symptoms REVIEW OF SYSTEMS SEE HPI EXAM: BP 126/84 Pulse 94 Wt 72 kg (158 lb 11.7 oz) SpO2 97% BMI 22.78 kg/m? General Appearance: Well appearing, alert, in no acute distress, well-hydrated, well nourished.. Nose/Sinuses: Nares normal, septum midline, mucosa normal, no drainage or sinus tenderness. Oropharynx: Lips, mucosa, and tongue normal, teeth and gums normal, oropharynx normal. Lungs: Lungs clear to auscultation. No wheezing, rhonchi, rales.. Heart: RRR without murmur, gallop, or rubs. No ectopy. Health Maintenance List Depression Screening Never done HIV Screening Never done Colorectal Cancer Screening Never done Covid-19 Vaccine( season) Never done Hepatitis B Vaccine(3 of 3 - 19+ 3-dose series) due on 10/06/2024 Anxiety Screening due on 08/11/2025 Diabetes Screening due on 08/12/2027 Lipid Screening due on 08/11/2029 DTaP,Tdap,Td Vaccine(2 - Td or Tdap) due on 03/03/2034 Influenza Vaccine Completed Hepatitis C Screening Completed ASSESSMENT/PLAN: 1. Hearing aid consultation - ICD9: V65.49, ICD10: Z71.89 (primary diagnosis) - CONSULT TO ENT 2. Seasonal allergies - ICD9: 477.9, ICD10: J30.2 - Stop claritin and zyrtec - LEVOCETIRIZINE 2.5 MG/5 ML ORAL SOLUTION Niraj Andino, FLOOR COVERING CONTRACTOR.UTILITY ENGINEER Allergies As of Date: 10/02/2024 (No Known Allergies) (more content not included)... Normal [facility] Panel Informationon 09-30 IMPRESSION: Limited study. Findings are suggestive of hepatic steatosis or diffuse liver parenchymal disease. Left renal cyst. Process Control Supervisor: MELINDA Transcribe Date/Time: Sep 30 2024 3:47P Dictated by : GEMMA PRATT MD This examination was interpreted and the report reviewed and electronically signed by: GEMMA PRATT MD on Sep 30 2024 3:53PM EST DIVISION OF RADIOLOGY Radiology Study observation (narrative) [facility] No Panel InformationOrdered By: [facility] Provider on 09-30-2024 [facility] US ABD RIGHT UPPER QUADRANTo n 09-30-2024 US ABD RIGHT UPPER QUADRANT * * *Final Report* * * DATE OF EXAM: Sep 30 2024 1:37PM [facility] 1032 - US ABD RIGHT UPPER QUADRANT / PROCEDURE REASON: multiple diagnoses * * * * Physician Interpretation * * * * EXAM TITLE: US ABD RIGHT UPPER QUADRANT, US ABD SPLEEN -NB HISTORY: Multiple sclerosis. TECHNIQUE: Sonography of the right upper quadrant and spleen was performed. Images were obtained and stored in a permanent archive. MQ: URUQ_1 COMPARISON: None. RESULT: Limitations: Patient unable to follow directions/instruction. Liver was segmentally visualized. Pancreas: Not seen. Liver: Echotexture: Heterogeneous Echogenicity: Increase in echogenicity Surface contour: Smooth Lesions: None. MPV: Patent. Biliary: No intrahepatic biliary duct dilation. CBD: 3 mm in diameter. Gallbladder: Normal caliber -Contents: No cholelithiasis -Wall: 2 mm in thickness -Other: Negative sonographic James's sign. Kidneys: The right kidney is within normal limits. The left kidney is normal in size. There is a 7.1 x 5.3 x 5.8 cm large cyst in the lower pole of the left kidney. Spleen: The spleen is within upper normal limits in size measuring 12.8 cm. No mass lesion seen. IMPRESSION: Limited study. Findings are suggestive of hepatic steatosis or diffuse liver parenchymal disease. Left renal cyst. Process Control Supervisor: MELINDA Transcribe Date/Time: Sep 30 2024 3:47P Dictated by : GEMMA PRATT MD This examination was interpreted and the report reviewed and electronically signed by: GEMMA PRATT MD on Sep 30 2024 3:53PM EST [id number] Normal [facility] US ABD SPLEEN - N[place] 025 * * *Final Report* * * DATE OF EXAM: Sep 30 2024 1:37PM [facility] 1232 - US ABD SPLEEN -NB / PROCEDURE REASON: multiple diagnoses * * * * Physician Interpretation * * * * EXAM TITLE: US ABD RIGHT UPPER QUADRANT, US ABD SPLEEN -NB HISTORY: Multiple sclerosis. TECHNIQUE: Sonography of the right upper quadrant and spleen was performed. Images were obtained and stored in a permanent archive. MQ: URUQ_1 COMPARISON: None. RESULT: Limitations: Patient unable to follow directions/instruction. Liver was segmentally visualized. Pancreas: Not seen. Liver: Echotexture: Heterogeneous Echogenicity: Increase in echogenicity Surface contour: Smooth Lesions: None. MPV: Patent. Biliary: No intrahepatic biliary duct dilation. CBD: 3 mm in diameter. Gallbladder: Normal caliber -Contents: No cholelithiasis -Wall: 2 mm in thickness -Other: Negative sonographic James's sign. Kidneys: The right kidney is within normal limits. The left kidney is normal in size. There is a 7.1 x 5.3 x 5.8 cm large cyst in the lower pole of the left kidney. Spleen: The spleen is within upper normal limits in size measuring 12.8 cm. No mass lesion seen. DIVISION OF RADIOLOGY Provider, [facility] - 09/30/2024 * * *Final Report* * * DATE OF EXAM: Sep 30 2024 1:37PM [place] [id number] - US ABD SPLEEN -NB / PROCEDURE REASON: multiple diagnoses * * * * Physician Interpretation * * * * EXAM TITLE: US ABD RIGHT UPPER QUADRANT, US ABD SPLEEN -NB HISTORY: Multiple sclerosis. TECHNIQUE: Sonography of the right upper quadrant and spleen was performed. Images were obtained and stored in a permanent archive. MQ: URUQ_1 COMPARISON: None. RESULT: Limitations: Patient unable to follow directions/instruction. Liver was segmentally visualized. Pancreas: Not seen. Liver: Echotexture: Heterogeneous Echogenicity: Increase in echogenicity Surface contour: Smooth Lesions: None. MPV: Patent. Biliary: No intrahepatic biliary duct dilation. CBD: 3 mm in diameter. Gallbladder: Normal caliber -Contents: No cholelithiasis -Wall: 2 mm in thickness -Other: Negative sonographic James's sign. Kidneys: The right kidney is within normal limits. The left kidney is normal in size. There is a 7.1 x 5.3 x 5.8 cm large cyst in the lower pole of the left kidney. Spleen: The spleen is within upper normal limits in size measuring 12.8 cm. No mass lesion seen. IMPRESSION IMPRESSION: Limited study. Findings are suggestive of hepatic steatosis or diffuse liver parenchymal disease. Left renal cyst. Process Control Supervisor: MELINDA Transcribe Date/Time: Sep 30 2024 3:47P Dictated by : GEMMA PRATT MD This examination was interpreted and the report reviewed and electronically signed by: GEMMA PRATT MD on Sep 30 2024 3:53PM EST [facility] US ABD SPLEEN -NBon 10-01-19 US ABD SPLEEN -NB * * *Final Report* * * DATE OF EXAM: Sep 30 2024 1:37PM [facility] 1232 - US ABD SPLEEN -NB / PROCEDURE REASON: multiple diagnoses * * * * Physician Interpretation * * * * EXAM TITLE: US ABD RIGHT UPPER QUADRANT, US ABD SPLEEN -NB HISTORY: Multiple sclerosis. TECHNIQUE: Sonography of the right upper quadrant and spleen was performed. Images were obtained and stored in a permanent archive. MQ: URUQ_1 COMPARISON: None. RESULT: Limitations: Patient unable to follow directions/instruction. Liver was segmentally visualized. Pancreas: Not seen. Liver: Echotexture: Heterogeneous Echogenicity: Increase in echogenicity Surface contour: Smooth Lesions: None. MPV: Patent. Biliary: No intrahepatic biliary duct dilation. CBD: 3 mm in diameter. Gallbladder: Normal caliber -Contents: No cholelithiasis -Wall: 2 mm in thickness -Other: Negative sonographic James's sign. Kidneys: The right kidney is within normal limits. The left kidney is normal in size. There is a 7.1 x 5.3 x 5.8 cm large cyst in the lower pole of the left kidney. Spleen: The spleen is within upper normal limits in size measuring 12.8 cm. No mass lesion seen. IMPRESSION: Limited study. Findings are suggestive of hepatic steatosis or diffuse liver parenchymal disease. Left renal cyst. Process Control Supervisor: MELINDA Transcribe Date/Time: Sep 30 2024 3:47P Dictated by : GEMMA PRATT MD This examination was interpreted and the report reviewed and electronically signed by: GEMMA PRATT MD on Sep 30 2024 3:53PM EST [id number] Normal [facility] US Abdomen RUQon 09-30-2024 * * *Final Report* * * DATE OF EXAM: Sep 30 2024 1:37PM [facility] 1032 - US ABD RIGHT UPPER QUADRANT / PROCEDURE REASON: multiple diagnoses * * * * Physician Interpretation * * * * EXAM TITLE: US ABD RIGHT UPPER QUADRANT, US ABD SPLEEN -NB HISTORY: Multiple sclerosis. TECHNIQUE: Sonography of the right upper quadrant and spleen was performed. Images were obtained and stored in a permanent archive. MQ: URUQ_1 COMPARISON: None. RESULT: Limitations: Patient unable to follow directions/instruction. Liver was segmentally visualized. Pancreas: Not seen. Liver: Echotexture: Heterogeneous Echogenicity: Increase in echogenicity Surface contour: Smooth Lesions: None. MPV: Patent. Biliary: No intrahepatic biliary duct dilation. CBD: 3 mm in diameter. Gallbladder: Normal caliber -Contents: No cholelithiasis -Wall: 2 mm in thickness -Other: Negative sonographic James's sign. Kidneys: The right kidney is within normal limits. The left kidney is normal in size. There is a 7.1 x 5.3 x 5.8 cm large cyst in the lower pole of the left kidney. Spleen: The spleen is within upper normal limits in size measuring 12.8 cm. No mass lesion seen. DIVISION OF RADIOLOGY Provider, [facility] - 09/30/2024 * * *Final Report* * * DATE OF EXAM: Sep 30 2024 1:37PM [facility] 1032 - US ABD RIGHT UPPER QUADRANT / PROCEDURE REASON: multiple diagnoses * * * * Physician Interpretation * * * * EXAM TITLE: US ABD RIGHT UPPER QUADRANT, US ABD SPLEEN -NB HISTORY: Multiple sclerosis. TECHNIQUE: Sonography of the right upper quadrant and spleen was performed. Images were obtained and stored in a permanent archive. MQ: URUQ_1 COMPARISON: None. RESULT: Limitations: Patient unable to follow directions/instruction. Liver was segmentally visualized. Pancreas: Not seen. Liver: Echotexture: Heterogeneous Echogenicity: Increase in echogenicity Surface contour: Smooth Lesions: None. MPV: Patent. Biliary: No intrahepatic biliary duct dilation. CBD: 3 mm in diameter. Gallbladder: Normal caliber -Contents: No cholelithiasis -Wall: 2 mm in thickness -Other: Negative sonographic James's sign. Kidneys: The right kidney is within normal limits. The left kidney is normal in size. There is a 7.1 x 5.3 x 5.8 cm large cyst in the lower pole of the left kidney. Spleen: The spleen is within upper normal limits in size measuring 12.8 cm. No mass lesion seen. IMPRESSION IMPRESSION: Limited study. Findings are suggestive of hepatic steatosis or diffuse liver parenchymal disease. Left renal cyst. Process Control Supervisor: MELINDA Transcribe Date/Time: Sep 30 2024 3:47P Dictated by : GEMMA PRATT MD This examination was interpreted and the report reviewed and electronically signed by: GEMMA PRATT MD on Sep 30 2024 3:53PM [facility] 09-18-2024 [facility] ARVIND DOMÍNGUEZ ([id number]) 1975 M D Date Time Provider Department 09/18/24 [facility] During your visit today, we recorded the following information about you: Nina Velez RN 09/18/2024 9:49 AM Signed Pts sister called in and wanted to let provider know that they made Pts liver US appointment on 09/30/24. She also wasn't able to get into his MyChart so I gave her the liver labs. Pt also wanted to know if provider wanted to wean Pt off his Psych meds he takes one for schizophrenia and one for depression. She wanted to know if they are filtered through the liver the Mirtazapine and the Loratadine. I told her not to wean him off or stop the medications without the provider telling her to. Please call and advise. SAMANTA Armstrong Danielle, APRN.[facility] 09/18/2024 11:46 AM Signed Do not change any medications. We will obtain US and go from there. Holley Bashir MA 09/18/2024 12:02 PM Signed Chiki notified and verbalized understanding Holley Bashir MA Allergies As of Date: 09/18/2024 (No Known Allergies) Date Reviewed: 08/11/2024 Reviewed by: Holley Bashir MA - Fully Assessed Reason for Visit: Medication Question [1518] Appointment [186] Prescriptions as of 09/18/2024 - ergocalciferol 50,000 unit capsule (VITAMIN D2, DRISDOL) Take 1 capsule by mouth one time a week. - ferrous sulfate 220 mg/5 mL elix Take 7.4 mL by mouth once daily. - atorvastatin (ATORVALIQ) 20 mg/5 mL (4 mg/mL) suspension Take 5 mL by mouth once daily. - clarithromycin (BIAXIN) 250 mg tablet Take by mouth two times a day. Dr Chong - amoxicillin (AMOXIL) 250 mg/5 mL suspension Take by mouth three times a day. Dr Chong - KAOPECTATE, ATTAPULGITE, ORAL Take by mouth. Dr Chong - Lactobac no.41/Bifidobact no.7 (PROBIOTIC-10 ORAL) Take by mouth. Gummies - Dr. Chong - cetirizine HCl (ZYRTEC) 10 mg chewable tablet Take 1 tablet by mouth once daily. - calcium carbonate (CALCIUM ANTACID) 500 mg chew Take 2 tablets by mouth once daily. - cyanocobalamin (VITAMIN B-12) 1,000 mcg tab Take 1 tablet by mouth once daily. Takes as a gummie - selenium 50 mcg tab Take 1 tablet by mouth once daily. Takes as a gummie - Zinc Sulfate 25 mg zinc (110 mg) tab Take 25 tablets by mouth once daily. Takes as a gummie - omega-3 DHA-EPA (FISH OIL) 1,200 (144-216) mg capsule Take 1 capsule by mouth daily with breakfast. - ascorbic acid, vitamin C, (VITAMIN C) 500 mg tablet Take 1 tablet by mouth once daily. - diphenhydrAMINE (BENADRYL) 25 mg capsule Take 1-2 capsules by mouth at bedtime as needed. - food supplemt, lactose-reduced (BOOST MEN) 0.08 gram- 0.9 kcal/mL liqd Take 1 Bottle by mouth two times a day before meals. - mirtazapine (REMERON) 15 mg tablet Take 15 mg by mouth daily at bedtime. - melatonin 10 mg chew Take 1 Each by mouth once daily. - pantoprazole DR (PROTONIX) 40 mg tablet Take 1 tablet by mouth once daily. (capsule) - fluticasone (FLONASE) 50 mcg/actuation nasal spray Use 1 Casanova in each nostril once daily. - loratadine 10 mg dissolvable tablet Take 10 mg by mouth once daily. - OLANZapine orally disintegrating (ZYPREXA ZYDIS) 5 mg disintegrating tablet Take 5 mg by mouth daily at bedtime. - Nutritional Supplements (ENSURE PUDDING) pudg Take 113 g by mouth twice daily. Problem List As Of Date: 09/18/2024 (None) Encounter Status:Closed by WORKHOLLEY BERGER CMA on 09/18/24 Normal [facility] ALKALINE PHOSPHATASE ISOENZY MES (P)on 09-14-2024 ALK PHOS BONE % 23.3 % Normal 10.7-68.3 [facility] Comment on above: Order Comment: Speci men Type: BLOOD SPECIMENOrdering Facility: [facility] Address: [address] [place] [address] Performed By: #### A LKISOP ####[facility] LABIA [id number] [place] [address] [place] ALK PHOS LIVER % 76.7 % Normal 26.0-86.2 [facility] Comment on above: Order Comment: Speci men Type: BLOOD SPECIMENOrdering Facility: [facility] Address: [address] [place] [address] Performed By: #### A LKISOP ####[facility] LABIA [id number] [place] [address] [place] BONE FRACTION 55.9 U/L High 12.9-52.6 [facility] Comment on above: Order Comment: Speci men Type: BLOOD SPECIMENOrdering Facility: [facility] Address: [address], [place] [address] Performed By: #### A LKISOP ####[facility] LABCLIA [id number] [place] [address] [place] INTESTINE FRACTION 0.0 U/L Normal 0.0-16.3 [facility] Comment on above: Order Comment: Speci men Type: BLOOD SPECIMENOrdering Facility: [facility] Address: [address] [place] [address] Performed By: #### A LKISOP ####[facility] LABIA [id number] [place] [address] [place] LIVER FRACTION 184.1 U/L High 16.0-69.3 [facility] Comment on above: Order Comment: Speci men Type: BLOOD SPECIMENOrdering Facility: [facility] Address: [address] [place] [address] Performed By: #### A LKISOP ####[facility] [id number] [address] [place] Neutrophils/100 WBC (Bld) 0.0 % Normal 0.0-24.2 [facility] Comment on above: Order Comment: Speci men Type: BLOOD SPECIMENOrdering Facility: [facility] Address: [address] [place] [address] Performed By: #### A LKISOP ####[facility] LABIA [id number] [place] [address] [place] ALP SerPl-cCncon 09-14-2024 ALP [Catalytic activity/Vol] 240 U/L High 38-113 [facility] Comment on above: Order Comment: Speci men Type: BLOOD SPECIMENOrdering Facility: [facility] Address: [address] [place] [address] Performed By: #### 6 768-6, 2324-2 ####[facility] LABIA [id number] [place] [address] [place] GGT SerPl-cCncon 09-14-2024 Gamma glutamyl transferase [Catalytic activity/Vol] 377 U/L High 10-70 [facility] Comment on above: Order Comment: Kenya roy Type: BLOOD SPECIMENOrdering Facility: [facility] Address: [address] [place] [address] Performed By: #### 6 768-6, 2324-2 ####[facility] [id number] [address] [place] Mitochondria Ab IF Ql (S)on 09-14-2024 Mitochondria M2 Ab IA Qn (S) 1.3 Units Normal <=20.0 [facility] Comment on above: Order Comment: Kenya roy Type: BLOOD SPECIMENOrdering Facility: [facility] Address: [address] [place] [address] Performed By: #### 1 7284-1 ####[facility] [id number] [address] [facility] Mitochondria M2 Ab Ql (S) Negative Normal Negative [facility] Comment on above: Order Comment: Kenya roy Type: BLOOD SPECIMENOrdering Facility: [facility] Address: [address] [place] [address] Result Comment: Anti -mitochondrial antibody test is used as an aid in diagnosis of primary biliary cholangitis. Clinical correlation is required. Performed By: #### 1 7284-1 ####[facility] [id number] [address] [place] AUDIOGRAMon 08-27-2024 [facility] Radiology Study observation (narrative) [facility] CNPNon 08-27-2024 CNPN Telephone (FAMPWS) ARVIND DOMÍNGUEZ ([id number]) 1975 M GRD Date Time Provider Department 08/27/24 NIRAJ ANDINO During your visit today, we recorded the following information about you: Tammi Sapp RN 08/27/2024 12:13 PM Signed Patient's sister/guardian Chiki Gill is calling to ask if provider would advise on pt's recent hepatic function panel results, when able. SAMANTA Cobian Danielle, IDALIA.UTILITY ENGINEER 08/27/2024 12:41 PM Signed Etienne's alk phos is slightly higher than previous but other levels are stable. I have ordered follow up labs that can be completed at any time. Mary Gibson MA 08/28/2024 12:10 PM Signed Called and left message on patients sisterChiki's voicemail to return call to the office and ask to speak with a triage nurse. ADRI Collazo Beth, LPN 08/28/2024 2:06 PM Signed Patient sister Chiki Gill returned call and went over results, notes from Shena Andino CORPORATE BUYER with understanding. She will try to get him in today to get other labs done, if not it will be Saturday. Allergies As of Date: 08/27/2024 (No Known Allergies) Date Reviewed: 08/11/2024 Reviewed by: Holley Bashir MA - Fully Assessed Reason for Visit: Results [95] Primary Visit Diagnosis:Elevated alkaline phosphatase level [R74.8] Order(s):ALK PHOS ISOENZYM BL [SQALKISO] Order #: [id number] FUTURE MITOCHONDRIAL M2 IGG SERUM [SQMITOS] Order #: [id number] FUTURE GGT [SQGGT] Order #: [id number] FUTURE Prescriptions as of 08/28/2024 - ergocalciferol 50,000 unit capsule (VITAMIN D2, DRISDOL) Take 1 capsule by mouth one time a week. - ferrous sulfate 220 mg/5 mL elix Take 7.4 mL by mouth once daily. - atorvastatin (ATORVALIQ) 20 mg/5 mL (4 mg/mL) suspension Take 5 mL by mouth once daily. - clarithromycin (BIAXIN) 250 mg tablet Take by mouth two times a day. Dr Chong - amoxicillin (AMOXIL) 250 mg/5 mL suspension Take by mouth three times a day. Dr Chong - KAOPECTATE, ATTAPULGITE, ORAL Take by mouth. Dr Chong - Lactobac no.41/Bifidobact no.7 (PROBIOTIC-10 ORAL) Take by mouth. Gummies - Dr. Chong - cetirizine HCl (ZYRTEC) 10 mg chewable tablet Take 1 tablet by mouth once daily. - calcium carbonate (CALCIUM ANTACID) 500 mg chew Take 2 tablets by mouth once daily. - cyanocobalamin (VITAMIN B-12) 1,000 mcg tab Take 1 tablet by mouth once daily. Takes as a gummie - selenium 50 mcg tab Take 1 tablet by mouth once daily. Takes as a gummie - Zinc Sulfate 25 mg zinc (110 mg) tab Take 25 tablets by mouth once daily. Takes as a gummie - omega-3 DHA-EPA (FISH OIL) 1,200 (144-216) mg capsule Take 1 capsule by mouth daily with breakfast. - ascorbic acid, vitamin C, (VITAMIN C) 500 mg tablet Take 1 tablet by mouth once daily. - diphenhydrAMINE (BENADRYL) 25 mg capsule Take 1-2 capsules by mouth at bedtime as needed. - food supplemt, lactose-reduced (BOOST MEN) 0.08 gram- 0.9 kcal/mL liqd Take 1 Bottle by mouth two times a day before meals. - mirtazapine (REMERON) 15 mg tablet Take 15 mg by mouth daily at bedtime. - melatonin 10 mg chew Take 1 Each by mouth once daily. - pantoprazole DR (PROTONIX) 40 mg tablet Take 1 tablet by mouth once daily. (capsule) - fluticasone (FLONASE) 50 mcg/actuation nasal spray Use 1 Casanova in each nostril once daily. - loratadine 10 mg dissolvable tablet Take 10 mg by mouth once daily. - OLANZapine orally disintegrating (ZYPREXA ZYDIS) 5 mg disintegrating tablet Take 5 mg by mouth daily at bedtime. - Nutritional Supplements (ENSURE PUDDING) pudg Take 113 g by mouth twice daily. Problem List As Of Date: 08/27/2024 (None) Encounter Status:Closed by RADHA WALL on 08/28/24 [facility] CNPN Telephone (FAMPWS) ARVIND DOMÍNGUEZ ([id number]) 1975 M GRD Date Time Provider Department 08/27/24 NIRAJ ANDINO [facility] During your visit today, we recorded the following information about you: Tammi Sapp RN 08/27/2024 3:02 PM Signed Patient's sister/guardian Chiki Gill is calling to update Niraj Andino UTILITY ENGINEER that she was able to get patient in to an environmental science instructor today at [facility] and is there now. 1) The environmental science instructor there is asking for provider to place and fax an order to them to cover today's exam, for an audiometric evaluation referral. Please fax to [phone]. Requesting this by the end of the day, if possible. 2)The environmental science instructor states pt should have a brain stem response test in the future which should be indicated in today's audiology OV note. 2) The environmental science instructor advises that provider also place an order for ENT consult for pt to have after his brain stem response test. Please call sister Chiki with an update. SAMANTA Cobian Danielle, IDALIA.[facility] 08/28/2024 8:43 AM Signed Order placed. Tammi Sapp RN 08/28/2024 9:10 AM Signed Faxed as requested to number below. Detailed message left on Chiki Anayaon's identified VM. Tammi Sapp RN Allergies As of Date: 08/27/2024 (No Known Allergies) Date Reviewed: 08/11/2024 Reviewed by: Holley Bashir MA - Fully Assessed Reason for Visit: Orders [681] Primary Visit Diagnosis:Non-verbal learning disorder [F81.89] Order(s):HEARING TEST/AUDIOGRAM [2312023] Order #: [id number]: 1 FUTURE Prescriptions as of 08/28/2024 - ergocalciferol 50,000 unit capsule (VITAMIN D2, DRISDOL) Take 1 capsule by mouth one time a week. - ferrous sulfate 220 mg/5 mL elix Take 7.4 mL by mouth once daily. - atorvastatin (ATORVALIQ) 20 mg/5 mL (4 mg/mL) suspension Take 5 mL by mouth once daily. - clarithromycin (BIAXIN) 250 mg tablet Take by mouth two times a day. Dr Chong - amoxicillin (AMOXIL) 250 mg/5 mL suspension Take by mouth three times a day. Dr Chong - KAOPECTATE, ATTAPULGITE, ORAL Take by mouth. Dr Chong - Lactobac no.41/Bifidobact no.7 (PROBIOTIC-10 ORAL) Take by mouth. Gummies - Dr. Chong - cetirizine HCl (ZYRTEC) 10 mg chewable tablet Take 1 tablet by mouth once daily. - calcium carbonate (CALCIUM ANTACID) 500 mg chew Take 2 tablets by mouth once daily. - cyanocobalamin (VITAMIN B-12) 1,000 mcg tab Take 1 tablet by mouth once daily. Takes as a gummie - selenium 50 mcg tab Take 1 tablet by mouth once daily. Takes as a gummie - Zinc Sulfate 25 mg zinc (110 mg) tab Take 25 tablets by mouth once daily. Takes as a gummie - omega-3 DHA-EPA (FISH OIL) 1,200 (144-216) mg capsule Take 1 capsule by mouth daily with breakfast. - ascorbic acid, vitamin C, (VITAMIN C) 500 mg tablet Take 1 tablet by mouth once daily. - diphenhydrAMINE (BENADRYL) 25 mg capsule Take 1-2 capsules by mouth at bedtime as needed. - food supplemt, lactose-reduced (BOOST MEN) 0.08 gram- 0.9 kcal/mL liqd Take 1 Bottle by mouth two times a day before meals. - mirtazapine (REMERON) 15 mg tablet Take 15 mg by mouth daily at bedtime. - melatonin 10 mg chew Take 1 Each by mouth once daily. - pantoprazole DR (PROTONIX) 40 mg tablet Take 1 tablet by mouth once daily. (capsule) - fluticasone (FLONASE) 50 mcg/actuation nasal spray Use 1 Casanova in each nostril once daily. - loratadine 10 mg dissolvable tablet Take 10 mg by mouth once daily. - OLANZapine orally disintegrating (ZYPREXA ZYDIS) 5 mg disintegrating tablet Take 5 mg by mouth daily at bedtime. - Nutritional Supplements (ENSURE PUDDING) pudg Take 113 g by mouth twice daily. Problem List As Of Date: 08/27/2024 (None) Encounter Status:Closed by TAMMI SAPP on 08/28/24 Normal [facility] Gastroenterology Visit Repor ton 08-26-2024 Gastroenterology Visit Report [facility] Gastroenterology [address] [place] [address] OFFICE VISIT Date of Service: 08/26/24 MR#: [id number] Acct: [id number] Name: ARVIND DOMÍNGUEZ Rep #: [id number] : 1975 Provider: ANTHONY Matthews Age/Sex: 49/M Location: [facility] Status: Signed Intake Vital Signs 07/07/24 16:38 Height 6 ft 1 in Intake Visit Reasons: Follow up Chief Complaint: abd pain Allergies No Known Allergies Allergy (Verified 07/07/24 16:38) Nurse's Note: OV 08.26.24 Pt here for for f/u. Pt reports indigestion, gas, bloating, bowl movement fluctuating from loose to constipation. Pt continues omeprazole, pantoprazole, sucralfate, and Zofran daily. PFSH Medical History Rash Low iron Non-smoker Schizophrenia GERD (gastroesophageal reflux disease) Autism Surgical History History of esophagogastroduodenoscopy (EGD) Family History Mother Lung cancer Heart disease Father Lung cancer Social History household members: family Smoking Status: Never smoker HPI HPI Chief Complaint: abd pain Details: ARVIND DOMÍNGUEZ, is a 49 M who presents to the office today for f/u. BGI established 04.14.24 with epigastric pain and lack of appetite. Pt is mostly non-verbal and hx if taken form his sister. Pt on Protonix. Last EGD many years ago. He has constipation alternating with loose stools. EGD 06.18.24; - Normal esophagus. - Erythematous mucosa in the gastric body and antrum. Biopsied. - Erythematous duodenopathy. *H. pylori + treated with PPI, Clarithromycin and amoxicillin OV 08.26.24: Pt continues with intermittent abd pain. He did finish his course of antibiotics but discontinued PPI as his sister did not feel it was helping. He has loose stools frequently and constipation on occasion. His sister also mentions he has had elevated liver enzymes over the past few months. ROS Const Constitutional: No fatigue, fever(s) or weight change ENT ENT: No difficulty swallowing Gastro GI: Positive for bloating, heartburn and excessive flatus; No abdominal pain, belching, change in bowel habits, change in stool character, coffee ground emesis, constipation, cramping, diarrhea, difficulty swallowing, feeling full early, incontinent of stools, Vomiting blood/hematemesis, Blood in stool, loose stools, Black,tarry stools, nausea/dyspepsia, pain with swallowing, vomiting or other Musc Musculoskeletal: No joint pain Skin Skin: No yellowing of the eye or itchy eyes Psych Psychiatric: Positive for anxiety, Positive for depression, Positive for Compulsive Behavior and Positive for obsessions/compulsions Endo Endocrine: No fatigue or weight change Aller/Imm Allergy/Immunologic: No itchy eyes Estrada/Lymp Hematologic/Lymphatic: No easy bleeding or easy bruising Exam Const General: cooperative and comfortable Nutritional Appearance: average body habitus and well nourished [facility] Head: normal to inspection Ears: hearing grossly normal bilaterally Nose: external nose normal Face and sinus: normal facial exam Eyes General: appearance normal, both eyes and all related structures Neck Neck: normal visual inspection Chest Chest palpation inspection: normal inspection of the chest and normal palpation of entire chest wall Resp Effort Inspection: normal respiratory effort Auscultation: Bilateral: Clear to Auscultation Cardio Palpation: normal PMI Rate: regular rate Rhythm: regular rhythm GI Inspection: normal to inspection Auscultation: normal bowel sounds Percussion: normal to percussion Palpation: no hepatosplenomegaly Skin General: no rashes or lesions noted Neuro General: patient alert Extrem General: normal to inspection Psych Affect: normal affect Assessment and Plan Assessment and Plan (1) Loose stools: Status: Acute Plan: THis is a 49 yo male pt here today for f/u after EGD. EGD showed erythema in the stomach and the duodenum. H. pylori was positive. He was treated with PPI, clarithromycin and amoxicillin. He will be re-tested with a stool antigen test. he is no longer taking pantoprazole as he did not feel it helped. He would like to try esomeprazole. This was sent in. I recommended he start taking a fiber supplement for his loose stools and constipation. I will order calprotectin to rule out inflammation. Pending these results will consider colonoscopy. His sister mentions that he has had elevated liver enzymes over the past few months and his PCP is monitoring this. We may need to order an US if it continues to be elevated -Start esomeprazole -Stool antigen for h. p (more content not included)... Normal [facility] Hepatic function 2000 panelo n 08-25-2024 Albumin [Mass/Vol] 4.7 g/dL Normal 3.9-4.9 [facility] Comment on above: Order Comment: Kenya roy Type: BLOOD SPECIMENOrdering Facility: [facility] Address: [address] [place] [address] Performed By: #### 2 4325-3 ####[facility]ORY[facility]IA [id number] [place] [address] [place] ALP [Catalytic activity/Vol] 194 U/L High 38-113 [facility] Comment on above: Order Comment: Kenya roy Type: BLOOD SPECIMENOrdering Facility: [facility] Address: [address] [place] [address] Performed By: #### 2 4325-3 ####[facility]ORY[facility] [id number] [place] [address] [place] ALT [Catalytic activity/Vol] 43 U/L Normal 10-54 [facility] Comment on above: Order Comment: Kenya roy Type: BLOOD SPECIMENOrdering Facility: [facility] Address: [address] [place] [address] Performed By: #### 2 4325-3 ####[facility]ORYCLIA [id number] [place] [address] [place] AST [Catalytic activity/Vol] 28 U/L Normal 14-40 [facility] Comment on above: Order Comment: Speci men Type: BLOOD SPECIMENOrdering Facility: [facility] Address: [address] [place] [address] Performed By: #### 2 4325-3 ####[facility]ORYCLIA [id number] [place] [address] [place] Bilirubin [Mass/Vol] mg/dL Low 0.2-1.3 [facility] Comment on above: Order Comment: Speci men Type: BLOOD SPECIMENOrdering Facility: [facility] Address: [address] [place] [address] Performed By: #### 2 4325-3 ####[facility]ORYCLIA [id number] [place] [address] [place] Bilirubin.conjugated [Mass/Vol] mg/dL Normal <0.3 [facility] Comment on above: Order Comment: Speci men Type: BLOOD SPECIMENOrdering Facility: [facility] Address: [address] [place] [address] Performed By: #### 2 4325-3 ####[facility]ORYCLIA [id number] [place] [address] [place] Protein [Mass/Vol] 7.7 g/dL Normal 6.3-8.0 [facility] Comment on above: Order Comment: Speci men Type: BLOOD SPECIMENOrdering Facility: [facility] Address: [address] [place] [address] Performed By: #### 2 4325-3 ####[facility]ORYCLIA [id number] [place] [address] [place] CNPClarissa 08-14-2024 CNPN Telephone ([facility]) ARVIND DOMÍNGUEZ ([id number]) 1975 M GRD Date Time Provider Department 08/14/24 NIRAJ ANDINO During your visit today, we recorded the following information about you: Michelle Tijerina, SAMANTA 08/14/2024 11:04 AM Signed Patient's sister Chiki calls and is asking about lab results. Please review and advise, SAMANTA Mitchell Danielle, FLOOR COVERING CONTRACTOR.UTILITY ENGINEER 08/14/2024 11:51 AM Signed Please let Chiki know Masoud vit d is still low. Continue supplementation. I have sent in a refill. His iron is normal continue supplementation. His liver enzymes are elevated again. Has he had recent medication changes? I would like repeat labs in 2 weeks. His cholesterol is higher than previous I would like to start him on cholesterol medication. This medication would be at bedtime and once a day. He will need to stay well hydrated. Nina Velez RN 08/14/2024 1:04 PM Signed Pts sister called and is notified of providers results and instructions. She voices understanding. She states she is ok with Pt going on something for Cholesterol, but it will have to be liquid or gummy as Pt doesn't swallow pills. She is also asking if provider can send in a liquid or chewable Vitamin D. She reports right now the Pt is taking gummy Vit D. She denies the Pt taking any new medications. She wanted to let the provider know that she has fatty liver and non-alcoholic liver disease, and they think it's from her and Etienne's fathers side of the family. Please call and advise on the medications and getting in liquid or chewable form. SAMANTA Armstrong Danielle, FLOOR COVERING CONTRACTOR.UTILITY ENGINEER 08/14/2024 1:55 PM Signed I have sent in a rx for liquid atorvastatin. Tram Barajas RN 08/18/2024 8:37 AM Signed Kerry from [facility] asking for clinical information regarding pt's Atorvastatin liquid prescription. Explained that pt does not swallow pills and has Autism, Mental disability and Schizophrenia. Kerry will forward the clinical information on. Ref # is [id number] Allergies As of Date: 08/14/2024 (No Known Allergies) Date Reviewed: 08/11/2024 Reviewed by: Holley Bashir MA - Fully Assessed Reason for Visit: Results [95] prior authorization [Other] Cmt: Liquid Atorvastatin Primary Visit Diagnosis:Elevated LFTs [R79.89] Other Visit Diagnoses:Vitamin D deficiency [E55.9] Iron deficiency [E61.1] Hyperlipidemia, mixed [E78.2] Order(s):ergocalciferol 50,000 unit capsule (VITAMIN D2, DRISDOL)Take 1 capsule by mouth one time a week.Disp: 12 capsuleRfl: 3 ferrous sulfate 220 mg/5 mL elixTake 7.4 mL by mouth once daily.Disp: 473 mLRfl: 5 HEPATIC FUNCTION PNL [SQHFP] Order #: [id number] FUTURE atorvastatin (ATORVALIQ) 20 mg/5 mL (4 mg/mL) suspensionTake 5 mL by mouth once daily.Disp: 150 mLRfl: 5 Prescriptions as of 08/21/2024 - ergocalciferol 50,000 unit capsule (VITAMIN D2, DRISDOL) Take 1 capsule by mouth one time a week. - ferrous sulfate 220 mg/5 mL elix Take 7.4 mL by mouth once daily. - atorvastatin (ATORVALIQ) 20 mg/5 mL (4 mg/mL) suspension Take 5 mL by mouth once daily. - clarithromycin (BIAXIN) 250 mg tablet Take by mouth two times a day. Dr Chong - amoxicillin (AMOXIL) 250 mg/5 mL suspension Take by mouth three times a day. Dr Chong - KAOPECTATE, ATTAPULGITE, ORAL Take by mouth. Dr Chong - Lactobac no.41/Bifidobact no.7 (PROBIOTIC-10 ORAL) Take by mouth. Gummies - Dr. Chong - cetirizine HCl (ZYRTEC) 10 mg chewable tablet Take 1 tablet by mouth once daily. - calcium carbonate (CALCIUM ANTACID) 500 mg chew Take 2 tablets by mouth once daily. - cyanocobalamin (VITAMIN B-12) 1,000 mcg tab Take 1 tablet by mouth once daily. Takes as a gummie - selenium 50 mcg tab Take 1 tablet by mouth once daily. Takes as a gummie - Zinc Sulfate 25 mg zinc (110 mg) tab Take 25 tablets by mouth once daily. Takes as a gummie - omega-3 DHA-EPA (FISH OIL) 1,200 (144-216) mg capsule Take 1 capsule by mouth daily with breakfast. - ascorbic acid, vitamin C, (VITAMIN C) 500 mg tablet Take 1 tablet by mouth once daily. - diphenhydrAMINE (BENADRYL) 25 mg capsule Take 1-2 capsules by mouth at bedtime as needed. - food supplemt, lactose-reduced (BOOST MEN) 0.08 gram- 0.9 kcal/mL liqd Take 1 Bottle by mouth two times a day before meals. - mirtazapine (REMERON) 15 mg tablet Take 15 mg by mouth daily at bedtime. - melatonin 10 mg chew Take 1 Each by mouth once daily. - pantoprazole DR (PROTONIX) 40 mg tablet Take 1 tablet by mouth once daily. (capsule) - fluticasone (FLONASE) 50 mcg/actuation nasal spray Use 1 Casanova in each nostril once daily. - loratadine 10 mg dissolvable tablet Take 10 mg by mouth once daily. - OLANZapine orally disintegrating (ZYPREXA ZYDIS) 5 mg disintegrating tablet Take 5 mg by mouth daily at bedtime. - Nutritional Supplements (ENSURE PUDDING) pudg Take 113 g by mouth twice da (more content not included)... Normal [facility] 25(OH)D[facility] 25-hydroxyvitamin D3 [Mass/Vol] 25.1 ng/mL Low 31.0-80.0 [facility] Comment on above: Order Comment: Speci men Type: BLOOD SPECIMENOrdering Facility: [facility] Address: [facility] [place] [address] Result Comment: Clas sification of 25 [place] Vitamin D status: Deficiency/Insufficiency: < or = 30 ng/ml. Sufficiency/Optimal Levels: 31-80 ng/mL Toxicity: > 100 ng/mL. Test performed by chemiluminescent immunoassay. Performed By: #### 1 989-3 ####[facility] LABCLIA [id number] [place] [address] [place] CBC W Auto Differential pane l (Bld)on 08-11-2024 Basophils (Bld) [#/Vol] 0.04 10*3/uL [facility] Basophils/100 WBC (Bld) 0.5 % [facility] Differential cell count method Nom (Bld) Auto [facility] Eosinophils (Bld) [#/Vol] 0.16 10*3/uL [facility] Eosinophils/100 WBC (Bld) 1.9 % [facility] Erythrocyte distribution width (RBC) [Ratio] 14 % 11.5 - 15.0 % [facility] Hematocrit (Bld) [Volume fraction] 42.1 % 39.0 - 51.0 % [facility] Hemoglobin (Bld) [Mass/Vol] 13.3 g/dL 13.0 - 17.0 g/dL [facility] Immature granulocytes (Bld) [#/Vol] [facility] Immature granulocytes/100 WBC (Bld) 0.2 % [facility] Lymphocytes (Bld) [#/Vol] 2.24 10*3/uL [facility] Lymphocytes/100 WBC (Bld) 26.6 % [facility] MCH (RBC) [Entitic mass] 27.7 pg 26.0 - 34.0 pg [facility] MCHC (RBC) [Mass/Vol] 31.6 g/dL 30.5 - 36.0 g/dL [facility] MCV (RBC) [Entitic vol] 87.5 fL 80.0 - 100.0 fL [facility] Monocytes (Bld) [#/Vol] 0.52 10*3/uL [facility] Monocytes/100 WBC (Bld) 6.2 % [facility] Neutrophils (Bld) [#/Vol] 5.43 10*3/uL [facility] Neutrophils/100 WBC (Bld) 64.6 % [facility] Nucleated RBC (Bld) [#/Vol] [facility] Nucleated RBC/100 WBC (Bld) [Ratio] 0 % /100 WBC [facility] Platelet mean volume (Bld) [Entitic vol] 11.6 fL 9.0 - 12.7 fL [facility] Platelets (Bld) [#/Vol] 210 10*3/uL [facility] RBC (Bld) [#/Vol] 4.81 10*6/uL 4.20 - 6.00 m/uL [facility] WBC (Bld) [#/Vol] 8.41 10*3/uL [facility] Basophils (Bld) [#/Vol] 0.04 10*3/uL Normal <0.11 [facility] Comment on above: Order Comment: Speci men Type: BLOOD SPECIMENOrdering Facility: [facility] Address: [address] [place] [address] Performed By: #### 5 7021-8 ####[facility] LABCLIA [id number] [place] [address] [place] Basophils/100 WBC (Bld) 0.5 % Normal [facility] Comment on above: Order Comment: Speci men Type: BLOOD SPECIMENOrdering Facility: [facility] Address: [address] [place] [address] Performed By: #### 5 7021-8 ####[facility] LABCLIA [id number] [place] [address] [place] Differential cell count method Nom (Bld) Auto Normal [facility] Comment on above: Order Comment: Speci men Type: BLOOD SPECIMENOrdering Facility: [facility] Address: [address] [place] [address] Performed By: #### 5 7021-8 ####[facility] LABCLIA [id number] [place] [address] [place] Eosinophils (Bld) [#/Vol] 0.16 10*3/uL Normal <0.46 [facility] Comment on above: Order Comment: Speci men Type: BLOOD SPECIMENOrdering Facility: [facility] Address: [address] [place] [address] Performed By: #### 5 7021-8 ####[facility] LABCLIA [id number] [place] [address] [place] Eosinophils/100 WBC (Bld) 1.9 % Normal [facility] Comment on above: Order Comment: Speci men Type: BLOOD SPECIMENOrdering Facility: [facility] Address: [address] [place] [address] Performed By: #### 5 7021-8 ####[facility] LABCLIA [id number] [facility] [place] [address] [place] Erythrocyte distribution width (RBC) [Ratio] 14.0 % Normal 11.5-15.0 [facility] Comment on above: Order Comment: Speci men Type: BLOOD SPECIMENOrdering Facility: [facility] Address: [address] [place] [address] Performed By: #### 5 7021-8 ####[facility] LABCLIA [id number] [place] [address] [place] Hematocrit (Bld) [Volume fraction] 42.1 % Normal 39.0-51.0 [facility] Comment on above: Order Comment: Speci men Type: BLOOD SPECIMENOrdering Facility: [facility] Address: [address] [place] [address] Performed By: #### 5 7021-8 ####[facility] LABCLIA [id number] [facility] CENT[facility] [address], [place] [address] [place] Hemoglobin (Bld) [Mass/Vol] 13.3 g/dL Normal 13.0-17.0 [facility] Comment on above: Order Comment: Speci men Type: BLOOD SPECIMENOrdering Facility: [facility] Address: [address] [place] [address] Performed By: #### 5 7021-8 ####[facility] LABCLIA [id number] [place] [address] [place] Immature granulocytes (Bld) [#/Vol] 10*3/uL Normal <0.10 [facility] Comment on above: Order Comment: Speci men Type: BLOOD SPECIMENOrdering Facility: [facility] Address: [address] [place] [address] Performed By: #### 5 7021-8 ####[facility] LABCLIA [id number] [place] [address] [place] Immature granulocytes/100 WBC (Bld) 0.2 % Normal [facility] Comment on above: Order Comment: Speci men Type: BLOOD SPECIMENOrdering Facility: [facility] Address: [address] [place] [address] Performed By: #### 5 7021-8 ####[facility] LABCLIA [id number] [place] [address] [place] Lymphocytes (Bld) [#/Vol] 2.24 10*3/uL Normal 1.00-4.00 [facility] Comment on above: Order Comment: Speci men Type: BLOOD SPECIMENOrdering Facility: [facility] Address: [address] [place] [address] Performed By: #### 5 7021-8 ####[facility] LABIA [id number] [place] [address] [place] Lymphocytes/100 WBC (Bld) 26.6 % Normal [facility] Comment on above: Order Comment: Speci men Type: BLOOD SPECIMENOrdering Facility: [facility] Address: [address] [place] [address] Performed By: #### 5 7021-8 ####[facility] LABCLIA [id number] [place] [address] [place] MCH (RBC) [Entitic mass] 27.7 pg Normal 26.0-34.0 [facility] Comment on above: Order Comment: Speci men Type: BLOOD SPECIMENOrdering Facility: [facility] Address: [address] [place] [address] Performed By: #### 5 7021-8 ####[facility] LABCLIA [id number] [place] [address] [place] MCHC (RBC) [Mass/Vol] 31.6 g/dL Normal 30.5-36.0 [facility] Comment on above: Order Comment: Speci men Type: BLOOD SPECIMENOrdering Facility: [facility] Address: [address] [place] [address] Performed By: #### 5 7021-8 ####[facility] LABCLIA [id number] [place] [address] [place] MCV (RBC) [Entitic vol] 87.5 fL Normal 80.0-100.0 [facility] Comment on above: Order Comment: Speci men Type: BLOOD SPECIMENOrdering Facility: [facility] Address: [address] [place] [address] Performed By: #### 5 7021-8 ####[facility] LABCLIA [id number] [place] [address] [place] Monocytes (Bld) [#/Vol] 0.52 10*3/uL Normal <0.87 [facility] Comment on above: Order Comment: Speci men Type: BLOOD SPECIMENOrdering Facility: [facility] Address: [address] [place] [address] Performed By: #### 5 7021-8 ####[facility] LABCLIA [id number] [place] [address] [place] Monocytes/100 WBC (Bld) 6.2 % Normal [facility] Comment on above: Order Comment: Speci men Type: BLOOD SPECIMENOrdering Facility: [facility] Address: [address] [place] [address] Performed By: #### 5 7021-8 ####[facility] LABCLIA [id number] [place] [address] [place] Neutrophils (Bld) [#/Vol] 5.43 10*3/uL Normal 1.45-7.50 [facility] Comment on above: Order Comment: Speci men Type: BLOOD SPECIMENOrdering Facility: [facility] Address: [address] [place] [address] Performed By: #### 5 7021-8 ####[facility] LABCLIA [id number] [place] [address] [place] Neutrophils/100 WBC (Bld) 64.6 % Normal [facility] Comment on above: Order Comment: Speci men Type: BLOOD SPECIMENOrdering Facility: [facility] Address: [address] [place] [address] Performed By: #### 5 7021-8 ####[facility] LABCLIA [id number] [place] [address] [place] Nucleated RBC (Bld) [#/Vol] 10*3/uL Normal <0.01 [facility] Comment on above: Order Comment: Speci men Type: BLOOD SPECIMENOrdering Facility: [facility] Address: [address] [place] [address] Performed By: #### 5 7021-8 ####[facility] LABIA [id number] [place] [address] [place] Nucleated RBC/100 WBC (Bld) [Ratio] 0.0 /100 WBC Normal [facility] Comment on above: Order Comment: Speci men Type: BLOOD SPECIMENOrdering Facility: [facility] Address: [address] [place] [address] Performed By: #### 5 7021-8 ####[facility] LABCLIA [id number] [place] [address] [place] Platelet mean volume (Bld) [Entitic vol] 11.6 fL Normal 9.0-12.7 [facility] Comment on above: Order Comment: Speci men Type: BLOOD SPECIMENOrdering Facility: [facility] Address: [address] [place] [address] Performed By: #### 5 7021-8 ####[facility] LABCLIA [id number] [place] [id number] [place] Platelets (Bld) [#/Vol] 210 10*3/uL Normal 150-400 [facility] Comment on above: Order Comment: Speci men Type: BLOOD SPECIMENOrdering Facility: [facility] Address: [address] [place] [address] Performed By: #### 5 7021-8 ####[facility] [id number] [place] [address] [place] RBC (Bld) [#/Vol] 4.81 10*6/uL Normal 4.20-6.00 [facility] Comment on above: Order Comment: Speci men Type: BLOOD SPECIMENOrdering Facility: [facility] Address: [address] [place] [address] Performed By: #### 5 7021-8 ####[facility] [id number] [place] [address] [place] WBC (Bld) [#/Vol] 8.41 10*3/uL Normal 3.70-11.00 [facility] Comment on above: Order Comment: Speci men Type: BLOOD SPECIMENOrdering Facility: [facility] Address: [address] [place] [address] Performed By: #### 5 7021-8 ####[facility] [id number] [place] [id number] [place] CNOVon 08-11-2024 CNOV Office Visit (FAMPWS ) ARVIND DOMÍNGUEZ ([id number]) 1975 M GRD Date Time Provider Department 08/11/24 3:40 PM NRIAJ ANDINO During your visit today, we recorded the following information about you: Pulse Blood pressure Weight 92/minute 118/82 72 kg Niraj Andino APRN.UTILITY ENGINEER 08/11/2024 4:45 PM Signed Chief Complaint Patient presents with: Physical HPI Arvind Domínguez is a 49 year old male who presents here today for Above Complaints.. Patient presents for annual physical. Past medical history, appointments, medications, allergies reviewed. Previous Medical History PAST MEDICAL HISTORY Diagnosis Date Autism GERD (gastroesophageal reflux disease) Mental disability Schizophrenia (HCC) Underweight due to inadequate caloric intake Vitamin D deficiency Previous Surgical History No past surgical history on file. Family History No family history on file. Patient Allergies ALLERGIES No Known Allergies Current Medications Current Outpatient Medications on File Prior to Visit Medication Sig clarithromycin (BIAXIN) 250 mg tablet Take by mouth two times a day. Dr Chong amoxicillin (AMOXIL) 250 mg/5 mL suspension Take by mouth three times a day. Dr Chong KAOPECTATE, ATTAPULGITE, ORAL Take by mouth. Dr Chong Lactobac no.41/Bifidobact no.7 (PROBIOTIC-10 ORAL) Take by mouth. Gummies - Dr. Chong cetirizine HCl (ZYRTEC) 10 mg chewable tablet Take 1 tablet by mouth once daily. ferrous sulfate 220 mg/5 mL elix Take 7.4 mL by mouth once daily. calcium carbonate (CALCIUM ANTACID) 500 mg chew Take 2 tablets by mouth once daily. cyanocobalamin (VITAMIN B-12) 1,000 mcg tab Take 1 tablet by mouth once daily. Takes as a gummie selenium 50 mcg tab Take 1 tablet by mouth once daily. Takes as a gummie Zinc Sulfate 25 mg zinc (110 mg) tab Take 25 tablets by mouth once daily. Takes as a gummie omega-3 DHA-EPA (FISH OIL) 1,200 (144-216) mg capsule Take 1 capsule by mouth daily with breakfast. ascorbic acid, vitamin C, (VITAMIN C) 500 mg tablet Take 1 tablet by mouth once daily. ergocalciferol 50,000 unit capsule (VITAMIN D2, DRISDOL) Take 1 capsule by mouth one time a week. diphenhydrAMINE (BENADRYL) 25 mg capsule Take 1-2 capsules by mouth at bedtime as needed. food supplemt, lactose-reduced (BOOST MEN) 0.08 gram- 0.9 kcal/mL liqd Take 1 Bottle by mouth two times a day before meals. mirtazapine (REMERON) 15 mg tablet Take 15 mg by mouth daily at bedtime. melatonin 10 mg chew Take 1 Each by mouth once daily. pantoprazole DR (PROTONIX) 40 mg tablet Take 1 tablet by mouth once daily. (capsule) fluticasone (FLONASE) 50 mcg/actuation nasal spray Use 1 Casanova in each nostril once daily. loratadine 10 mg dissolvable tablet Take 10 mg by mouth once daily. OLANZapine orally disintegrating (ZYPREXA ZYDIS) 5 mg disintegrating tablet Take 5 mg by mouth daily at bedtime. Nutritional Supplements (ENSURE PUDDING) pudg Take 113 g by mouth twice daily. No current facility-administered medications on file prior to visit. Social History Social History Tobacco Use Smoking status: Never Smokeless tobacco: Never Substance Use Topics Alcohol use: Never Drug use: Never Review of Symptoms REVIEW OF SYSTEMS SEE HPI EXAM: BP 118/82 Pulse 92 Wt 72 kg (158 lb 11.7 oz) BMI 22.78 kg/m? General Appearance: Well appearing, alert, in no acute distress, well-hydrated, well nourished. Skin: Skin color, texture, turgor normal, no suspicious rashes or lesions. Neck: Supple, no adenopathy; thyroid symmetric, normal size, no bruits. Lungs: Lungs clear to auscultation. No wheezing, rhonchi, rales.. Heart: RRR without murmur, gallop, or rubs. No ectopy. Abdomen: Normal abdominal exam, Abdomen soft, non-tender. Bowel sounds normal. No masses, organomegaly. Musculoskeletal: No joint swelling, deformity, or tenderness. Peripheral Pulses: Normal. Neurologic: Gait normal. Reflexes normal and symmetric. Sensation grossly intact.. Health Maintenance List Depression Screening Never done Anxiety Screening Never done HIV Screening Never done Colorectal Cancer Screening Never done Covid-19 Vaccine(2023- season) Never done Hepatitis B Vaccine(2 of 3 - 19+ 3-dose series) due on 03/31/2024 Diabetes Screening due on 07/24/2026 Lipid Screening due on 07/24/2028 DTaP,Tdap,Td Vaccine(2 - Td or Tdap) due on 03/03/2034 Influenza Vaccine Completed Hepatitis C Screening Completed ASSESSMENT/PLAN: 1. Wellness examination - ICD9: V70.0, ICD10: Z00.00 (primary diagnosis) - Counseled on healthy diet and regular exercise - Patient counseled on and acknowledged vaccine benefits/risks/side effects; VIS provided: Hep B Vaccine - Follow up for annual exam in one year 2. Vitamin D deficiency - ICD9: 268.9, ICD10: E55.9 - VITAMIN D 25 HYDROXY 3. Medication management - ICD9: V58.6 (more content not included)... Normal [facility] Comprehensive metabolic 2000 panelon 08-11-2024 Albumin [Mass/Vol] 4.5 g/dL Normal 3.9-4.9 [facility] Comment on above: Order Comment: Speci men Type: BLOOD SPECIMENOrdering Facility: [facility] Address: [address] [place] [address] Performed By: #### 5 0190-8, LIPNF, 6-3, 59499-8 ####[facility] LABCLIA [id number] [place] [address] [place] ALP [Catalytic activity/Vol] 188 U/L High 38-113 [facility] Comment on above: Order Comment: Speci men Type: BLOOD SPECIMENOrdering Facility: [facility] Address: [address] [place] [address] Performed By: #### 5 0190-8, LIPNF, 3016-3, 26228-2 ####[facility] LABCLIA [id number] [place] [address] [place] ALT [Catalytic activity/Vol] 64 U/L High 10-54 [facility] Comment on above: Order Comment: Speci men Type: BLOOD SPECIMENOrdering Facility: [facility] Address: [address] [place] [address] Performed By: #### 5 0190-8, LIPNF, 3016-3, 10957-9 ####[facility] LABCLIA [id number] [address] [address] [place] Anion gap [Moles/Vol] 12 mmol/L Normal 8-15 [facility] Comment on above: Order Comment: Speci men Type: BLOOD SPECIMENOrdering Facility: [facility] Address: [address] [place] [address] Performed By: #### 5 0190-8, LIPNF, 301-3, 43587-2 ####[facility] LABCLIA [id number] [place] [address] [place] AST [Catalytic activity/Vol] 50 U/L High 14-40 [facility] Comment on above: Order Comment: Speci men Type: BLOOD SPECIMENOrdering Facility: [facility] Address: [address] [place] [address] Performed By: #### 5 0190-8, LIPNF, 3015-3, 06229-6 ####[facility] LABCLIA [id number] [place] [address] [place] Bilirubin [Mass/Vol] mg/dL Low 0.2-1.3 [facility] Comment on above: Order Comment: Speci men Type: BLOOD SPECIMENOrdering Facility: [facility] Address: [address] [place] [address] Performed By: #### 5 0190-8, LIPNF, 301-3, 48372-1 ####[facility] LABCLIA [id number] [place] [address] [place] Calcium [Mass/Vol] 9.8 mg/dL Normal 8.5-10.2 [facility] Comment on above: Order Comment: Speci men Type: BLOOD SPECIMENOrdering Facility: [facility] Address: [address] [place] [address] Performed By: #### 5 0190-8, LIPNF, 3016-3, 09460-0 ####[facility] LABCLIA [id number] [place] [id number] [place] Chloride [Moles/Vol] 104 mmol/L Normal 98-107 [facility] Comment on above: Order Comment: Speci men Type: BLOOD SPECIMENOrdering Facility: [facility] Address: [address] [place] [address] Performed By: #### 5 0190-8, LIPNF, 3016-3, 64260-8 ####[facility] LABCLIA [id number] [place] [address] [place] CO2 [Moles/Vol] 24 mmol/L Normal 22-30 [facility] Comment on above: Order Comment: Speci men Type: BLOOD SPECIMENOrdering Facility: [facility] Address: [address] [place] [address] Performed By: #### 5 0190-8, LIPNF, 3016-3, 40066-1 ####[facility] LABCLIA [id number] [place] [address] [place] Creatinine [Mass/Vol] 0.88 mg/dL Normal 0.73-1.22 [facility] Comment on above: Order Comment: Speci men Type: BLOOD SPECIMENOrdering Facility: [facility] Address: [address] [place] [address] Performed By: #### 5 0190-8, LIPNF, 3016-3, 47275-6 ####[facility] LABCLIA [id number] [place] [address] [place] Creatinine and Glomerular filtration rate.predicted panel (S/P/Bld) 106 mL/min/1.73m??? Normal >=60 [facility] Comment on above: Order Comment: Speci men Type: BLOOD SPECIMENOrdering Facility: [facility] Address: [address] [place] [address] Result Comment: Rashida mated Glomerular Filtration Rate (eGFR) is calculated using the 2020 CKD-EPI creatinine equation. This equation utilizes serum creatinine, sex, and age as parameters. The creatinine assay has traceable calibration to isotope dilution-mass spectrometry. Refer to KDIGO guidelines for clinical interpretation. In patients with unstable renal function, e.g. those with acute kidney injury, the eGFR may not accurately reflect actual GFR. Performed By: #### 5 0190-8, ROM, ####[facility] LABCLIA [id number] [facility] [address] [address] [place] Glucose [Mass/Vol] 103 mg/dL High 74-99 [facility] Comment on above: Order Comment: Kenya roy Type: BLOOD SPECIMENOrdering Facility: [facility] Address: [address] [place] [address] Result Comment: The [place] Diabetes Association (ADA) provides guidance for cutoff values for fasting glucose and random glucose. The ADA defines fasting as no caloric intake for at least 8 hours. Fasting plasma glucose results between 100 to 125 mg/dL indicate increased risk for diabetes (prediabetes). Fasting plasma glucose results greater than or equal to 126 mg/dL meet the criteria for diagnosis of diabetes. In the absence of unequivocal hyperglycemia, results should be confirmed by repeat testing. In a patient with classic symptoms of hyperglycemia or hyperglycemic crisis, random plasma glucose results greater than or equal to 200 mg/dL meet the criteria for diagnosis of diabetes. Reference: Standards of Medical Care in Diabetes 2016, [place] Diabetes Association. Diabetes Care. 2016.39(Suppl 1). Performed By: #### 5 0190-8, ROM, ####[facility] LABCLIA [id number] [facility] [address] [address] [place] Potassium [Moles/Vol] 4.3 mmol/L Normal 3.7-5.1 [facility] Comment on above: Order Comment: Kenya roy Type: BLOOD SPECIMENOrdering Facility: [facility] Address: [address] [place] [address] Performed By: #### 5 0190-8, ROM, ####[facility] LABCLIA [id number] [facility] [id number] [address] [place] Protein [Mass/Vol] 7.5 g/dL Normal 6.3-8.0 [facility] Comment on above: Order Comment: Speci men Type: BLOOD SPECIMENOrdering Facility: [facility] Address: [address] [place] [address] [place] [address] Performed By: #### 5 0190-8, LIPNF, 3, ####[facility] LABCLIA [id number] [place] [address] [place] Sodium [Moles/Vol] 140 mmol/L Normal 136-144 [facility] Comment on above: Order Comment: Speci men Type: BLOOD SPECIMENOrdering Facility: [facility] Address: [address] [place] [address] Performed By: #### 5 0190-8, LIPNF, 3, ####[facility] LABCLIA [id number] [place] [address] [place] Urea nitrogen [Mass/Vol] 17 mg/dL Normal 9-24 [facility] Comment on above: Order Comment: Speci men Type: BLOOD SPECIMENOrdering Facility: [facility] Address: [address] [place] [address] Performed By: #### 5 0190-8, LIPNF, 3015-07, ####[facility] LABCLIA [id number] [place] [address] [place] Iron and Iron binding capaci ty panelon 08-11-2024 Iron [Mass/Vol] 41 ug/dL Normal 41-186 [facility] Comment on above: Order Comment: Speci men Type: BLOOD SPECIMENOrdering Facility: [facility] Address: [address] [place] [address] Performed By: #### 5 0190-8, LIPNF, 3, ####[facility] LABCLIA [id number] [place] [id number] [place] Iron binding capacity [Mass/Vol] 282 ug/dL Normal 232-386 [facility] Comment on above: Order Comment: Speci men Type: BLOOD SPECIMENOrdering Facility: [facility] Address: [address] [place] [address] Performed By: #### 5 0190-8, LIPNF, 3, ####[facility] LABCLIA [id number] [place] [address] [place] Iron/TIBC [Molar ratio] 14.5 % Low 15.0-57.0 [facility] Comment on above: Order Comment: Speci men Type: BLOOD SPECIMENOrdering Facility: [facility] Address: [address] [place] [address] Performed By: #### 5 0190-8, LIPNF, 3, ####[facility] LABCLIA [id number] [place] [address] [place] LIPID PANEL, NONFASTINGon Cholesterol [Mass/Vol] 260 mg/dL High <200 [facility] Comment on above: Order Comment: Speci men Type: BLOOD SPECIMENOrdering Facility: [facility] Address: [address] [place] [address] Result Comment: <200 mg/dL, Desirable 200-239 mg/dL, Borderline high >239 mg/dL, High Performed By: #### 5 0190-8, LIPNF, 3, ####[facility] LABCLIA [id number] [place] [address] [place] HDL CHOLESTEROL, NF 38 mg/dL Low >39 [facility] Comment on above: Order Comment: Speci men Type: BLOOD SPECIMENOrdering Facility: [facility] Address: [address] [place] [address] Result Comment: 40-5 9 mg/dL, Acceptable >59 mg/dL, High: Negative risk factor for coronary heart disease <40 mg/dL, Low: Positive risk factor for coronary heart disease Performed By: #### 5 0190-8, LIPNF, 3015-3, 08069-7 ####[facility] LABCLIA [id number] [place] [address] [place] LDL CHOLESTEROL, NF Normal [facility] Comment on above: Order Comment: Speci men Type: BLOOD SPECIMENOrdering Facility: [facility] Address: [address] [place] [address] Result Comment: Unab le to calculate due to increased Triglycerides. A Direct LDL Cholesterol measurement will not be performed. If clinically indicated, a fasting Basic Lipid Panel (LIPB) may be ordered. Performed By: #### 5 0190-8, LIPNF, 3015-3, 96569-8 ####[facility] LABIA [id number] [place] [address] [place] LDL/HDL RATIO, NF Normal [facility] Comment on above: Order Comment: Speci men Type: BLOOD SPECIMENOrdering Facility: [facility] Address: [address] [place] [address] Result Comment: Unab le to calculate due to elevated Triglycerides. Reference: 1. National Cholesterol Education Program ATP III Guideline At-A-Glance Quick Desk Reference: National Heart, Lung, and Blood [place]. National Institutes of Health. 2001: NIH Publication No. 01-3305. 2. An International Atherosclerosis Society position paper: global recommendations for the management of dyslipidemia: executive summary, Atherosclerosis. 2014: 232(2):410-413. Performed By: #### 5 0190-8, LIPNF, 3015-3, 84089-7 ####[facility] LABIA [id number] [place] [id number] [place] NON HDL CHOL, NF 222 mg/dL High <130 [facility] Comment on above: Order Comment: Speci men Type: BLOOD SPECIMENOrdering Facility: [facility] Address: [address] [place] [address] Result Comment: <130 mg/dL, Optimal 130-159 mg/dL, Near optimal/above optimal 160-189 mg/dL, Borderline high 190-219 mg/dL, High >219 mg/dL, Very high Secondary prevention optimal non HDL Cholesterol levels are recommended to be <100 mg/dL Performed By: #### 5 0190-8, LIPNF, 3015-3, ####[facility] LABCLIA [id number] [address] [place] [address] [place] T CHOL/HDL RATIO NF 6.84 mg/dL High <5.10 [facility] Comment on above: Order Comment: Speci men Type: BLOOD SPECIMENOrdering Facility: [facility] Address: [address] [place] [address] Performed By: #### 5 0190-8, LIPNF, 3015-07, ####[facility] LABCLIA [id number] [address] [place] [address] [place] TRIGLYCERIDES, NF 749 mg/dL High <150 [facility] Comment on above: Order Comment: Speci men Type: BLOOD SPECIMENOrdering Facility: [facility] Address: [address] [place] [address] Result Comment: <150 mg/dL, Normal 150-199 mg/dL, Borderline high 200-499 mg/dL, High >499 mg/dL, Very high Performed By: #### 5 0190-8, LIPNF, 3015-07, 07646-6 ####[facility] LABCLIA [id number] [address] [address] [place] VLDL CHOLESTEROL, NF Normal [facility] Comment on above: Order Comment: Speci men Type: BLOOD SPECIMENOrdering Facility: [facility] Address: [address] [place] [address] Result Comment: Unab le to calculate due to elevated Triglycerides. Performed By: #### 5 0190-8, LIPNF, 3015-3, 45296-4 ####[facility] LABCLIA [id number] [address] [place] [address] [place] TSH SerPl-aCncon 08-11-2024 TSH Qn 1.020 m[IU]/L Normal 0.270-4.20 0 [facility] Comment on above: Order Comment: Speci men Type: BLOOD SPECIMENOrdering Facility: [facility] Address: [address] [place] [address] Performed By: #### 5 0190-8, LIPNF, 3016-3, 51462-2 ####[facility] LABCLIA [id number] KEE RIGGINS [address] CNOVon 07-14-2024 CNOV Office Visit (FAMPWS ) ARVIND DOMÍNGUEZ ([id number]) 1975 M GRD Date Time Provider Department 07/14/24 3:20 PM [facility] During your visit today, we recorded the following information about you: Pulse Blood pressure Weight 94/minute 116/80 71.7 kg Niraj Andino APRN.[facility] 07/14/2024 3:26 PM Signed Chief Complaint Patient presents with: Cough HPI Arvind Domínguez is a 49 year old male who presents here today for Above Complaints.. Patient presents for continued cough and decreased appetite. Patient was diagnosed with covid on 07/01 and has otherwise recovered. Past medical history, appointments, medications, allergies reviewed. Previous Medical History PAST MEDICAL HISTORY Diagnosis Date Autism GERD (gastroesophageal reflux disease) Mental disability Schizophrenia (HCC) Underweight due to inadequate caloric intake Vitamin D deficiency Previous Surgical History No past surgical history on file. Family History No family history on file. Patient Allergies ALLERGIES No Known Allergies Current Medications Current Outpatient Medications on File Prior to Visit Medication Sig clarithromycin (BIAXIN) 250 mg tablet Take by mouth two times a day. Dr Chong amoxicillin (AMOXIL) 250 mg/5 mL suspension Take by mouth three times a day. Dr Arlette GUTIERREZCTKAMILA ATTAPULGITE, ORAL Take by mouth. Dr Chong Lactobac no.41/Bifidobact no.7 (PROBIOTIC-10 ORAL) Take by mouth. Gummies - Dr. Chong cetirizine HCl (ZYRTEC) 10 mg chewable tablet Take 1 tablet by mouth once daily. ferrous sulfate 220 mg/5 mL elix Take 7.4 mL by mouth once daily. calcium carbonate (CALCIUM ANTACID) 500 mg chew Take 2 tablets by mouth once daily. cyanocobalamin (VITAMIN B-12) 1,000 mcg tab Take 1 tablet by mouth once daily. Takes as a gummie selenium 50 mcg tab Take 1 tablet by mouth once daily. Takes as a gummie Zinc Sulfate 25 mg zinc (110 mg) tab Take 25 tablets by mouth once daily. Takes as a gummie omega-3 DHA-EPA (FISH OIL) 1,200 (144-216) mg capsule Take 1 capsule by mouth daily with breakfast. ascorbic acid, vitamin C, (VITAMIN C) 500 mg tablet Take 1 tablet by mouth once daily. ergocalciferol 50,000 unit capsule (VITAMIN D2, DRISDOL) Take 1 capsule by mouth one time a week. diphenhydrAMINE (BENADRYL) 25 mg capsule Take 1-2 capsules by mouth at bedtime as needed. food supplemt, lactose-reduced (BOOST MEN) 0.08 gram- 0.9 kcal/mL liqd Take 1 Bottle by mouth two times a day before meals. mirtazapine (REMERON) 15 mg tablet Take 15 mg by mouth daily at bedtime. melatonin 10 mg chew Take 1 Each by mouth once daily. pantoprazole DR (PROTONIX) 40 mg tablet Take 1 tablet by mouth once daily. (capsule) fluticasone (FLONASE) 50 mcg/actuation nasal spray Use 1 Casanova in each nostril once daily. loratadine 10 mg dissolvable tablet Take 10 mg by mouth once daily. OLANZapine orally disintegrating (ZYPREXA ZYDIS) 5 mg disintegrating tablet Take 5 mg by mouth daily at bedtime. Nutritional Supplements (ENSURE PUDDING) pudg Take 113 g by mouth twice daily. No current facility-administered medications on file prior to visit. Social History Social History Tobacco Use Smoking status: Never Smokeless tobacco: Never Substance Use Topics Alcohol use: Never Drug use: Never Review of Symptoms REVIEW OF SYSTEMS SEE HPI EXAM: BP 116/80 Pulse 94 Wt 71.7 kg (158 lb) BMI 22.67 kg/m? General Appearance: Well appearing, alert, in no acute distress, well-hydrated, well nourished. Lungs: Lungs clear to auscultation. No wheezing, rhonchi, rales.. Heart: RRR without murmur, gallop, or rubs. No ectopy. Health Maintenance List Depression Screening Never done Anxiety Screening Never done HIV Screening Never done Colorectal Cancer Screening Never done Covid-19 Vaccine() Never done Hepatitis B Vaccine(2 of 3 - 19+ 3-dose series) due on 03/31/2024 Diabetes Screening due on 07/24/2026 Lipid Screening due on 07/24/2028 DTaP,Tdap,Td Vaccine(2 - Td or Tdap) due on 03/03/2034 Influenza Vaccine Completed Hepatitis C Screening Completed ASSESSMENT/PLAN: 1. Post-viral cough syndrome - ICD9: 786.2, ICD10: R05.8 -Likely from recent covid. If continues after 4-6 more weeks would recommend follow up. Niraj Andino, FLOOR COVERING CONTRACTOR.UTILITY ENGINEER Allergies As of Date: 07/14/2024 (No Known Allergies) Date Reviewed: 07/14/2024 Reviewed by: Holley Bashir MA - Fully Assessed Reason for Visit: Cough [28] Primary Visit Diagnosis:Post-viral cough syndrome [R05.8] Prescriptions as of 07/14/2024 - clarithromycin (BIAXIN) 250 mg tablet Take by mouth two times a day. Dr Chong - amoxicillin (AMOXIL) 250 mg/5 mL suspension Take by mouth three times a day. Dr Chong - KAOPECTATE, ATTAPULGITE, ORAL Take by mouth. Dr Chong - Lactobac no.41/Bifidobact no.7 (PROBIOTIC-10 ORAL) Take b (more content not included)... [facility] ARVIND DOM[facility]NGUE[facility] ([id number]) 1975 M GRD Date Time Provider Department 07/07/24 NIRAJ ANDINO During your visit today, we recorded the following information about you: Leann Cruz, RN 07/07/2024 2:28 PM Signed Sister and legal guardian, Chiki, reports patient is covid + on lab result 07/01/24. Reports pt is autistic, and his scizophrenia is heightened today, although she is giving him all of his medications. Reports he is having outbursts like he is talking in his head. Reports patient is non communicative- he can't tell her how he feels. Reports he's coughing a lot, doesn't want to eat or drink for the last couple days. Reports his oxygen is ok but his HR is running 127, he doesn't have a fever, but his urine is dark yellow. Reports patient is holding his ear like it hurts. Chiki agreeable to take patient to ER for evaluation and possibly IV fluids. Allergies As of Date: 07/07/2024 (No Known Allergies) Date Reviewed: 06/22/2024 Reviewed by: Holley Basihr MA - Fully Assessed Reason for Visit: Patient Update [1234] Prescriptions as of 07/07/2024 - clarithromycin (BIAXIN) 250 mg tablet Take by mouth two times a day. Dr Chong - amoxicillin (AMOXIL) 250 mg/5 mL suspension Take by mouth three times a day. Dr Chong - KAOPECTATE, ATTAPULGITE, ORAL Take by mouth. Dr Chong - Lactobac no.41/Bifidobact no.7 (PROBIOTIC-10 ORAL) Take by mouth. Gummies - Dr. Chong - cetirizine HCl (ZYRTEC) 10 mg chewable tablet Take 1 tablet by mouth once daily. - ferrous sulfate 220 mg/5 mL elix Take 7.4 mL by mouth once daily. - calcium carbonate (CALCIUM ANTACID) 500 mg chew Take 2 tablets by mouth once daily. - cyanocobalamin (VITAMIN B-12) 1,000 mcg tab Take 1 tablet by mouth once daily. Takes as a gummie - selenium 50 mcg tab Take 1 tablet by mouth once daily. Takes as a gummie - Zinc Sulfate 25 mg zinc (110 mg) tab Take 25 tablets by mouth once daily. Takes as a gummie - omega-3 DHA-EPA (FISH OIL) 1,200 (144-216) mg capsule Take 1 capsule by mouth daily with breakfast. - ascorbic acid, vitamin C, (VITAMIN C) 500 mg tablet Take 1 tablet by mouth once daily. - ergocalciferol 50,000 unit capsule (VITAMIN D2, DRISDOL) Take 1 capsule by mouth one time a week. - diphenhydrAMINE (BENADRYL) 25 mg capsule Take 1-2 capsules by mouth at bedtime as needed. - food supplemt, lactose-reduced (BOOST MEN) 0.08 gram- 0.9 kcal/mL liqd Take 1 Bottle by mouth two times a day before meals. - mirtazapine (REMERON) 15 mg tablet Take 15 mg by mouth daily at bedtime. - melatonin 10 mg chew Take 1 Each by mouth once daily. - pantoprazole DR (PROTONIX) 40 mg tablet Take 1 tablet by mouth once daily. (capsule) - fluticasone (FLONASE) 50 mcg/actuation nasal spray Use 1 Casanova in each nostril once daily. - loratadine 10 mg dissolvable tablet Take 10 mg by mouth once daily. - OLANZapine orally disintegrating (ZYPREXA ZYDIS) 5 mg disintegrating tablet Take 5 mg by mouth daily at bedtime. - Nutritional Supplements (ENSURE PUDDING) pudg Take 113 g by mouth twice daily. Problem List As Of Date: 07/07/2024 (None) Encounter Status:Closed by Leann CRUZ on 07/07/24 [facility] CNOVchilo 07-01-2024 CNOV Office Visit (FAMPWS ) ARVIND DOMÍNGUEZ ([id number]) 1975 Leann ENRIQUEZ Date Time Provider Department 2/12/25 11:40 AM DONNA APONTE During your visit today, we recorded the following information about you: Temperature Pulse Respiration Blood pressure 98.7 degrees 89/minute 18/minute 122/94 Weight 70.8 kg Donna Aponte APRN.CNP 07/01/2024 12:22 PM Signed Chief Complaint Patient presents with: Cough HPI Arvind Domínguez is a 49 year old male, accompanied by sister, who presents here today for cough/sinus/low grade fever. Patient is nonverbal per sister who is guardian Patient was seen 06/22/2024 - negative covid/Flu/RSV. Sister reports seemed to improve, but yesterday cough seems worse. Coughing so hard he will throw up. Temp yesterday was 100. Not eating well and + for rhinorrhea. Sister reports does not seem short of breath, having difficulty breathing or diarrhea. Has not given him any OTC medications for symptoms Previous Medical History PAST MEDICAL HISTORY Diagnosis Date Autism GERD (gastroesophageal reflux disease) Mental disability Schizophrenia (HCC) Underweight due to inadequate caloric intake Vitamin D deficiency Previous Surgical History No past surgical history on file. Family History No family history on file. Patient Allergies ALLERGIES No Known Allergies Current Medications Current Outpatient Medications on File Prior to Visit Medication Sig clarithromycin (BIAXIN) 250 mg tablet Take by mouth two times a day. Dr Chong amoxicillin (AMOXIL) 250 mg/5 mL suspension Take by mouth three times a day. Dr Chong KAOPECTATE, ATTAPULGITE, ORAL Take by mouth. Dr Chong Lactobac no.41/Bifidobact no.7 (PROBIOTIC-10 ORAL) Take by mouth. Gummies - Dr. Chong cetirizine HCl (ZYRTEC) 10 mg chewable tablet Take 1 tablet by mouth once daily. ferrous sulfate 220 mg/5 mL elix Take 7.4 mL by mouth once daily. calcium carbonate (CALCIUM ANTACID) 500 mg chew Take 2 tablets by mouth once daily. cyanocobalamin (VITAMIN B-12) 1,000 mcg tab Take 1 tablet by mouth once daily. Takes as a gummie selenium 50 mcg tab Take 1 tablet by mouth once daily. Takes as a gummie Zinc Sulfate 25 mg zinc (110 mg) tab Take 25 tablets by mouth once daily. Takes as a gummie omega-3 DHA-EPA (FISH OIL) 1,200 (144-216) mg capsule Take 1 capsule by mouth daily with breakfast. ascorbic acid, vitamin C, (VITAMIN C) 500 mg tablet Take 1 tablet by mouth once daily. ergocalciferol 50,000 unit capsule (VITAMIN D2, DRISDOL) Take 1 capsule by mouth one time a week. diphenhydrAMINE (BENADRYL) 25 mg capsule Take 1-2 capsules by mouth at bedtime as needed. food supplemt, lactose-reduced (BOOST MEN) 0.08 gram- 0.9 kcal/mL liqd Take 1 Bottle by mouth two times a day before meals. mirtazapine (REMERON) 15 mg tablet Take 15 mg by mouth daily at bedtime. melatonin 10 mg chew Take 1 Each by mouth once daily. pantoprazole DR (PROTONIX) 40 mg tablet Take 1 tablet by mouth once daily. (capsule) fluticasone (FLONASE) 50 mcg/actuation nasal spray Use 1 Casanova in each nostril once daily. loratadine 10 mg dissolvable tablet Take 10 mg by mouth once daily. OLANZapine orally disintegrating (ZYPREXA ZYDIS) 5 mg disintegrating tablet Take 5 mg by mouth daily at bedtime. Nutritional Supplements (ENSURE PUDDING) pudg Take 113 g by mouth twice daily. No current facility-administered medications on file prior to visit. Social History Social History Tobacco Use Smoking status: Never Smokeless tobacco: Never Substance Use Topics Alcohol use: Never Drug use: Never Review of Symptoms REVIEW OF SYSTEMS Negative other than HPI EXAM: BP 122/94 Pulse 89 Temp 37.1 ?C (98.7 ?F) (Temporal Artery) Resp 18 Wt 70.8 kg (156 lb) SpO2 94% BMI 22.38 kg/m? General Appearance: Well appearing, alert, in no acute distress, well-hydrated, well nourished.. Skin: Skin color, texture, turgor normal, no suspicious rashes or lesions. Eyes: Anicteric sclera. Ears: External ears normal, canals clear. Oropharynx: patient will not open mouth to examine. Neck: Supple, no adenopathy Lungs: Lungs clear to auscultation. No wheezing, rhonchi, rales. No cough noted Heart: RRR without murmur, gallop, or rubs. No ectopy. Health Maintenance List Depression Screening Never done Anxiety Screening Never done HIV Screening Never done Colorectal Cancer Screening Never done Covid-19 Vaccine( - 2023- season) Never done Hepatitis B Vaccine(2 of 3 - 19+ 3-dose series) due on 03/31/2024 Diabetes Screening due on 07/24/2026 Lipid Screening due on 07/24/2028 DTaP,Tdap,Td Vaccine(2 - Td or Tdap) due on 03/03/2034 Influenza Vaccine Completed Hepatitis C Screening Completed ASSESSMENT/PLAN: 1. Acute cough - ICD9: 786.2, ICD10: R05.1 - no red flag symptoms or exam findings - red flag symptoms discussed, verb (more content not included)... Normal [facility] XR CHEST 2V FRONTAL/LATon XR CHEST 2V FRONTAL/LAT * * *Final Report* * * DATE OF EXAM: Jul 01 2024 12:41PM [id number] - XR CHEST 2V FRONTAL/LAT / PROCEDURE REASON: Acute cough * * * * Physician Interpretation * * * * EXAMINATION: CHEST RADIOGRAPH (2 VIEW FRONTAL and LATERAL) CLINICAL HISTORY: Acute cough MQ: XC2_6 EXAM DATE/TIME: 07/01/2024 12:41 PM COMPARISON: Chest x-ray dated 04/02/2024 RESULT: Lines, tubes, and devices: None. Lungs and pleura: Stable mild biapical pleural-parenchymal scarring. No consolidation. No lung mass. No pleural effusion. No pneumothorax. Cardiomediastinal silhouette: Normal cardiomediastinal silhouette. Bones and soft tissues: Degenerative changes are present within the thoracic spine. IMPRESSION: No acute radiographic abnormality. Process Control Supervisor: MELINDA Transcribe Date/Time: Jul 01 2024 12:41P Dictated by : DENISE STEWART MD This examination was interpreted and the report reviewed and electronically signed by: DENISE STEWART MD on Jul 01 2024 12:42PM EST [id number] Normal [facility] XR Chest PA and Lateralon IMPRESSION: No acute radiographic abnormality. Process Control Supervisor: MELINDA Transcribe Date/Time: Jul 01 2024 12:41P Dictated by : DENISE STEWART MD This examination was interpreted and the report reviewed and electronically signed by: DENISE STEWART MD on Jul 01 2024 12:42PM [facility] DIVISION OF RADIOLOGY * * *Final Report* * * DATE OF EXAM: Jul 01 2024 12:41PM [id number] - XR CHEST 2V FRONTAL/LAT / PROCEDURE REASON: Acute cough * * * * Physician Interpretation * * * * EXAMINATION: CHEST RADIOGRAPH (2 VIEW FRONTAL & LATERAL) CLINICAL HISTORY: Acute cough MQ: XC2_6 EXAM DATE/TIME: 07/01/2024 12:41 PM COMPARISON: Chest x-ray dated 04/02/2024 RESULT: Lines, tubes, and devices: None. Lungs and pleura: Stable mild biapical pleural-parenchymal scarring. No consolidation. No lung mass. No pleural effusion. No pneumothorax. Cardiomediastinal silhouette: Normal cardiomediastinal silhouette. Bones and soft tissues: Degenerative changes are present within the thoracic spine. DIVISION OF RADIOLOGY Provider, [facility] - 07/01/2024 * * *Final Report* * * DATE OF EXAM: Jul 01 2024 12:41PM [id number] - XR CHEST 2V FRONTAL/LAT / PROCEDURE REASON: Acute cough * * * * Physician Interpretation * * * * EXAMINATION: CHEST RADIOGRAPH (2 VIEW FRONTAL & LATERAL) CLINICAL HISTORY: Acute cough MQ: XC2_6 EXAM DATE/TIME: 07/01/2024 12:41 PM COMPARISON: Chest x-ray dated 04/02/2024 RESULT: Lines, tubes, and devices: None. Lungs and pleura: Stable mild biapical pleural-parenchymal scarring. No consolidation. No lung mass. No pleural effusion. No pneumothorax. Cardiomediastinal silhouette: Normal cardiomediastinal silhouette. Bones and soft tissues: Degenerative changes are present within the thoracic spine. IMPRESSION IMPRESSION: No acute radiographic abnormality. Process Control Supervisor: PSCB Transcribe Date/Time: Jul 01 2024 12:41P Dictated by : DENISE STEWART MD This examination was interpreted and the report reviewed and electronically signed by: DENISE STEWART MD on Jul 01 2024 12:42PM [facility] Radiology Study observation (narrative) [facility] XR Chest PA and LateralOrder ed By: Cc Provider on 07-01-2024 [facility] Cher 06-30-2024 [facility] Telephone (FAMWS) ARVIND DOMÍNGUEZ ([id number]) 1975 M D Date Time Provider Department 06/30/24 SINA NIRAJ [facility] During your visit today, we recorded the following information about you: Levar Greer LPN 06/30/2024 2:11 PM Signed Chiki called and pt is having problems getting into the shower and she is requesting a shower chair. Please send rx to [facility]. Please call Chiki when this has been sent. 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 - ferrous sulfate 220 mg/5 mL elix Take 7.4 mL by mouth once daily. - calcium carbonate (CALCIUM ANTACID) 500 mg chew Take 2 tablets by mouth once daily. - cyanocobalamin (VITAMIN B-12) 1,000 mcg tab Take 1 tablet by mouth once daily. Takes as a gummie - selenium 50 mcg tab Take 1 tablet by mouth once daily. Takes as a gummie - Zinc Sulfate 25 mg zinc (110 mg) tab Take 25 tablets by mouth once daily. Takes as a gummie - omega-3 DHA-EPA (FISH OIL) 1,200 (144-216) mg capsule Take 1 capsule by mouth daily with breakfast. - ascorbic acid, vitamin C, (VITAMIN C) 500 mg tablet Take 1 tablet by mouth once daily. - ergocalciferol 50,000 unit capsule (VITAMIN D2, DRISDOL) Take 1 capsule by mouth one time a week. - diphenhydrAMINE (BENADRYL) 25 mg capsule Take 1-2 capsules by mouth at bedtime as needed. - food supplemt, lactose-reduced (BOOST MEN) 0.08 gram- 0.9 kcal/mL liqd Take 1 Bottle by mouth two times a day before meals. - mirtazapine (REMERON) 15 mg tablet Take 15 mg by mouth daily at bedtime. - melatonin 10 mg chew Take 1 Each by mouth once daily. - pantoprazole DR (PROTONIX) 40 mg tablet Take 1 tablet by mouth once daily. (capsule) - fluticasone (FLONASE) 50 mcg/actuation nasal spray Use 1 Casanova in each nostril once daily. - loratadine 10 mg dissolvable tablet Take 10 mg by mouth once daily. - OLANZapine orally disintegrating (ZYPREXA ZYDIS) 5 mg disintegrating tablet Take 5 mg by mouth daily at bedtime. - Nutritional Supplements (ENSURE PUDDING) pudg Take 113 g by mouth twice daily. Problem List As Of Date: 06/30/2024 (None) Encounter Status:Closed by HOLLEY BASHIR CMA on 06/30/24 [facility] Cher 06-23-2024 [facility] ([facility]) [facility]NGUE[facility] ([id number]) 1975 [facility] Provider Department 06/23/24 NIRAJ ANDINO During your visit today, we recorded the following information about you: Niraj Andino APRN.UTILITY ENGINEER 06/23/2024 7:53 AM Signed Please let patient know their covid/flu/rsv is negative. Emperatriz Tello OCCA 06/23/2024 8:04 AM Signed TC to patients guardian, Chiik, who verbalized understanding of providers message below. KAYLEIGH Uribe Allergies As of Date: 06/23/2024 (No Known Allergies) Date Reviewed: 06/22/2024 Reviewed by: Holley Bashir MA - Fully Assessed Reason for Visit: Results [95] Prescriptions as of 06/23/2024 - cetirizine HCl (ZYRTEC) 10 mg chewable tablet Take 1 tablet by mouth once daily. - ferrous sulfate 220 mg/5 mL elix Take 7.4 mL by mouth once daily. - calcium carbonate (CALCIUM ANTACID) 500 mg chew Take 2 tablets by mouth once daily. - cyanocobalamin (VITAMIN B-12) 1,000 mcg tab Take 1 tablet by mouth once daily. Takes as a gummie - selenium 50 mcg tab Take 1 tablet by mouth once daily. Takes as a gummie - Zinc Sulfate 25 mg zinc (110 mg) tab Take 25 tablets by mouth once daily. Takes as a gummie - omega-3 DHA-EPA (FISH OIL) 1,200 (144-216) mg capsule Take 1 capsule by mouth daily with breakfast. - ascorbic acid, vitamin C, (VITAMIN C) 500 mg tablet Take 1 tablet by mouth once daily. - ergocalciferol 50,000 unit capsule (VITAMIN D2, DRISDOL) Take 1 capsule by mouth one time a week. - diphenhydrAMINE (BENADRYL) 25 mg capsule Take 1-2 capsules by mouth at bedtime as needed. - food supplemt, lactose-reduced (BOOST MEN) 0.08 gram- 0.9 kcal/mL liqd Take 1 Bottle by mouth two times a day before meals. - mirtazapine (REMERON) 15 mg tablet Take 15 mg by mouth daily at bedtime. - melatonin 10 mg chew Take 1 Each by mouth once daily. - pantoprazole DR (PROTONIX) 40 mg tablet Take 1 tablet by mouth once daily. (capsule) - fluticasone (FLONASE) 50 mcg/actuation nasal spray Use 1 Casanova in each nostril once daily. - loratadine 10 mg dissolvable tablet Take 10 mg by mouth once daily. - OLANZapine orally disintegrating (ZYPREXA ZYDIS) 5 mg disintegrating tablet Take 5 mg by mouth daily at bedtime. - Nutritional Supplements (ENSURE PUDDING) pudg Take 113 g by mouth twice daily. Problem List As Of Date: 06/23/2024 (None) Encounter Status:Closed by EMPERATRIZ TELLO on 06/23/24 Normal [facility] CNOVon 06-22-2024 CNOV Office Visit (FAMPWS ) ARVIND DOMÍNGUEZ ([id number]) 1975 M GRD Date Time Provider Department 06/22/24 4:20 PM NIRAJ ANDINO During your visit today, we recorded the following information about you: Pulse Blood pressure Weight 84/minute 133/91 72.6 kg Niraj Andino APRN.[facility] 06/22/2024 4:37 PM Signed Chief Complaint Patient presents with: Cough Rhinitis HPI Arvind Domínguez is a 49 year old male who presents here today for Above Complaints.. Patient present for cough, ear pain and congestion x2 days. Patient's sister reports multiple people are sick in the home. He has not been coughing anything up and has been rubbing his nose frequently. Pts sister believes he is having frequent nasal drainage. Pts sister has also notices he is holding his head believes he could have an ear infection. He has had some episodes of diarrhea and constipation. Pt sister states he has had trouble sleeping. She has not tried giving him anything for his symptoms. Pt sister denies vomiting, eye drainage, wheezing and fever. Past medical history, appointments, medications, allergies reviewed. Previous Medical History PAST MEDICAL HISTORY Diagnosis Date Autism GERD (gastroesophageal reflux disease) Mental disability Schizophrenia (HCC) Underweight due to inadequate caloric intake Vitamin D deficiency Previous Surgical History No past surgical history on file. Family History No family history on file. Patient Allergies ALLERGIES No Known Allergies Current Medications Current Outpatient Medications on File Prior to Visit Medication Sig cetirizine HCl (ZYRTEC) 10 mg chewable tablet Take 1 tablet by mouth once daily. ferrous sulfate 220 mg/5 mL elix Take 7.4 mL by mouth once daily. calcium carbonate (CALCIUM ANTACID) 500 mg chew Take 2 tablets by mouth once daily. cyanocobalamin (VITAMIN B-12) 1,000 mcg tab Take 1 tablet by mouth once daily. Takes as a gummie selenium 50 mcg tab Take 1 tablet by mouth once daily. Takes as a gummie Zinc Sulfate 25 mg zinc (110 mg) tab Take 25 tablets by mouth once daily. Takes as a gummie omega-3 DHA-EPA (FISH OIL) 1,200 (144-216) mg capsule Take 1 capsule by mouth daily with breakfast. ascorbic acid, vitamin C, (VITAMIN C) 500 mg tablet Take 1 tablet by mouth once daily. ergocalciferol 50,000 unit capsule (VITAMIN D2, DRISDOL) Take 1 capsule by mouth one time a week. diphenhydrAMINE (BENADRYL) 25 mg capsule Take 1-2 capsules by mouth at bedtime as needed. food supplemt, lactose-reduced (BOOST MEN) 0.08 gram- 0.9 kcal/mL liqd Take 1 Bottle by mouth two times a day before meals. mirtazapine (REMERON) 15 mg tablet Take 15 mg by mouth daily at bedtime. melatonin 10 mg chew Take 1 Each by mouth once daily. pantoprazole DR (PROTONIX) 40 mg tablet Take 1 tablet by mouth once daily. (capsule) fluticasone (FLONASE) 50 mcg/actuation nasal spray Use 1 Casanova in each nostril once daily. loratadine 10 mg dissolvable tablet Take 10 mg by mouth once daily. OLANZapine orally disintegrating (ZYPREXA ZYDIS) 5 mg disintegrating tablet Take 5 mg by mouth daily at bedtime. Nutritional Supplements (ENSURE PUDDING) pudg Take 113 g by mouth twice daily. No current facility-administered medications on file prior to visit. Social History Social History Tobacco Use Smoking status: Never Smokeless tobacco: Never Substance Use Topics Alcohol use: Never Drug use: Never Review of Symptoms REVIEW OF SYSTEMS GENERAL: No weight loss, malaise or fevers RESPIRATORY: Dyspnea, Wheezing, Shortness of breath, positive: non-productive cough CARDIOVASCULAR: Negative for chest pain, leg swelling, hypertension, CHF or palpitations EXAM: BP 133/91 Pulse 84 Wt 72.6 kg (160 lb) SpO2 98% BMI 22.96 kg/m? General Appearance: Well appearing, alert, in no acute distress, well-hydrated, well nourished.. Ears: External ears normal, canals clear. Lungs: Lungs clear to auscultation. No wheezing, rhonchi, rales.. Heart: RRR without murmur, gallop, or rubs. No ectopy. Health Maintenance List Depression Screening Never done Anxiety Screening Never done HIV Screening Never done Colorectal Cancer Screening Never done Covid-19 Vaccine(2023- season) Never done Hepatitis B Vaccine(2 of 3 - 19+ 3-dose series) due on 03/31/2024 Diabetes Screening due on 07/24/2026 Lipid Screening due on 07/24/2028 DTaP,Tdap,Td Vaccine(2 - Td or Tdap) due on 03/03/2034 Influenza Vaccine Completed Hepatitis C Screening Completed ASSESSMENT/PLAN: 1. URI, acute - ICD9: 465.9, ICD10: J06.9 - Discussed viral etiology and rationale for treatment. - Symptomatic treatment with prn analgesia - Supportive care with fluids and rest - The patient may also use OTC cough and cold meds as needed, warm salt water gargles, throat lozenges and/or OTC throat spray as needed, and n (more content not included)... Normal [facility] COVID AND INFLUENZA A/B AND RSV PCR, ROUTINEon 06-22-2024 SARS-CoV-2 (COVID-19) RNA MICHAELA+probe Ql (Unsp spec) SARS-COV-2 (AGENT OF COVID-19) RNA: Not detected INFLUENZA A RNA: Not detected INFLUENZA B RNA: Not detected RESPIRATORY SYNCYTIAL VIRUS (RSV) RNA: Not detected Normal [facility] Comment on above: Performed By: #### C VFLRS ####[facility] LABCLIA [id number] [address] [place] EGD Reporton 06-18-2024 EGD Report [facility] Medical Records Department [address] [place] [address] EGD Report MR#: [id number] Acct: [id number] Name: ARVIND DOMÍNGUEZ Rep #: [id number] : 1975 49 From: Osman Chong DO PCP: EB Patel Status:REG SDC Patient Name: Arvind Domínguez Procedure Date: 06/18/2024 8:21 AM Date of : 1975 Age: 49 Procedure: Upper GI endoscopy Indications: Epigastric abdominal pain Providers: Osman Chong DO Referring MD: Eb Patel Medicines: Monitored Anesthesia Care Patient Profile: This is a 49 year old male. Refer to note in patient chart for documentation of history and physical. Patient has symptoms of chronic abdominal cramping, chronic abdominal distention and chronic epigastric abdominal pain. Complications: No immediate complications. Procedure: Pre-Anesthesia Assessment: - Prior to the procedure, a History and Physical was performed, and patient medications and allergies were reviewed. The patient is competent. The risks and benefits of the procedure and the sedation options and risks were discussed with the patient. All questions were answered and informed consent was obtained. Patient identification and proposed procedure were verified by the physician in the pre-procedure area. Mental Status Examination: alert and oriented. Airway Examination: normal oropharyngeal airway and neck mobility. Respiratory Examination: clear to auscultation. CV Examination: normal. Prophylactic Antibiotics: The patient does not require prophylactic antibiotics. Prior Anticoagulants: The patient has taken no anticoagulant or antiplatelet agents except for NSAID medication. ASA Grade Assessment: II - A patient with mild systemic disease. After reviewing the risks and benefits, the patient was deemed in satisfactory condition to undergo the procedure. The anesthesia plan was to use monitored anesthesia care (MAC). Immediately prior to administration of medications, the patient was re-assessed for adequacy to receive sedatives. The heart rate, respiratory rate, oxygen saturations, blood pressure, adequacy of pulmonary ventilation, and response to care were monitored throughout the procedure. The physical status of the patient was re-assessed after the procedure. After obtaining informed consent, the endoscope was passed under direct vision. Throughout the procedure, the patient's blood pressure, pulse, and oxygen saturations were monitored continuously. The Endoscope was introduced through the mouth, and advanced to the second part of duodenum. The upper GI endoscopy was accomplished without difficulty. The patient tolerated the procedure well. Scope In: 8:34:28 AM Scope Out: 8:36:52 AM Total Procedure Duration Time 0 hours 2 minutes 24 seconds Findings: The examined esophagus was normal. Patchy mildly erythematous mucosa without bleeding was found in the gastric body and in the gastric antrum. Biopsies were taken with a cold forceps for histology. Verification of patient identification for the specimen was done. Estimated blood loss was minimal. Biopsies were taken with a cold forceps for Helicobacter pylori testing. Verification of patient identification for the specimen was done. Estimated blood loss was minimal. Patchy mildly erythematous mucosa without active bleeding and with no stigmata of bleeding was found in the duodenal bulb. Impression: - Normal esophagus. - Erythematous mucosa in the gastric body and antrum. Biopsied. - Erythematous duodenopathy. Recommendation: - Discharge patient to home. - Resume previous diet. - Continue present medications. Procedure Code(s): --- Professional --- 71321, Esophagogastroduodenoscopy, flexible, transoral; with biopsy, single or multiple CPT copyright 2021 [employer]. All rights reserved. The codes documented in this report are preliminary and upon channel layer review may be revised to meet current compliance requirements. Osman Chong DO 06/18/2024 8:44:37 AM This report has been signed electronically. Number of Addenda: 0 Note Initiated On: 06/18/2024 8:21 AM 06/18/2444 Date Osman Yenignsid Signature: Date (if indicated) CC: CORPORATE BUYERPatricia Andino; Osman Chong DO Date Dictated: 06/18/24820 Date Transcribed: Process Control Supervisor: KIMBERLY Signed Normal [facility] H Pylori (initial)on H Pylori (initial) ------- Patient Age/Sex Location Account Attending Physician ARVIND DOMÍNGUEZ /M EN [id number] Osman Chong DO Specimen: [id number] Received: 06/19/24 Status: GEETHA Martinez Num: [id number] Spec Type: IMMUNO Subm Dr: Osman Chong DO PHYSICIAN INSTITUTION [place] [address] SPECIMEN INFORMATION: Tissue Source: B- Gastric body biopsy Clinical Info: Abdominal pain Specimen Number: [id number] CPT code: 40653 METHODOLOGY: Deparaffinized sections of prefer/formalin-fixed tissue or PAP/DQ stained slides are incubated with monoclonal/polyclonal antibodies/oligonucleotide probes. Localization is made via biotin free immunoperoxidase method. Appropriate controls are performed and reacted as expected. Results on target cell population are indicated in the following table: RESULTS: ANTIBODY / CLONE RESULT Block B H Pylori (polyclonal) positive These tests were developed and their performance characteristics determined by [facility]. They may not have been cleared or approved by the U.S. Food and Drug Administration. The FDA has determined that such clearance or approval is not necessary. The above immunohistochemical/dualISH markers are ordered and reviewed by the Pathologist. INTERPRETATION: B. Gastric body, biopsy: Positive for Helicobacter pylori organisms. SJ. 06/22/2024 Signed (signature on file) Dr. Ralph Jimenez MD 06/22/24 1220 Normal [facility] Comment on above: Performed By: #### P H.PYLORI #### [facility] [address] [place], [address] MR/POSTOP.Leslie 06-18-2024 MR/POSTOP.[facility] Medical Records Department [address] [place] [address] Anesthesia Postop Eval I 06/18/24 0846 MR#: [id number] Acct: [id number] Name: ARVIND DOMÍNGUEZ Rep #: [id number] : 1975 49 From: Theo Carbajal PCP: Niraj Andino, CORPORATE BUYER-C Status:REG SDC Y Race: C Location: [place] [address] Anesthesia: Postop Eval I Current Vital Signs Temperature: 98.4 F Pulse Rate: 74 Blood Pressure: 89/74 Respiratory Rate: 14 Pulse Ox: 97 Oxygen Delivery Method: Room Air Assessment Airway patent: Yes Spontaneous unlabored respirations: Yes Mental status: Asleep nausea: No Vomiting: No Anesthesia Complication: No Fluid Hydration Crystalloid volume administer (ml): 30 Total IV fluid infused: 30 Progress Note Anesthesia document: Postop Eval 1 completed: Yes 01/30846 Theo Arciniega Signature: Date CC: Signed Normal [facility] MR/[id number] 06-18-2024 MR/POSTOPAN2 [facility] Medical Records Department [address] [place] [address] Anesthesia Postop Eval II 06/18/24 1138 MR#: [id number] Acct: [id number] Name: ARVIND DOMÍNGUEZ Rep #: [id number] : 1975 49 From: Jaren Moya MD PCP: SEBASTIÁN PatelC Status:[facility] Y Race: C Location: EN Anesthesia Postop Eval I Sum Postop Eval Completion status Anesthesia document: Postop Eval 1 completed: Yes Anesthesia Postop Eval I Summary Anesthesia Postop Eval I Summary: Anesthesia Postop Eval I: Assessment Summary Airway patent Yes 06/18/24 08:47 [email or web address] Spontaneous unlabored Yes 06/18/24 08:47 [email or web address] respirations Mental status Asleep 06/18/24 08:47 [email or web address] nausea No 06/18/24 08:47 [email or web address] Vomiting No 06/18/24 08:47 [email or web address] Anesthesia Postop Eval I: Fluid Summary Crystalloid volume administer 30 06/18/24 08:47 [email or web address] (ml) Colloids volume administered ( ml) Blood Product volume administered (ml) Total IV fluid infused 06/18/24 08:47 [email or web address] Anesthesia Postop Eval I: Summary Notes Anesthesia Complication No 06/18/24 08:47 [email or web address] Anesthesia Complication Comment: Post-operative progress note Anesthesia: Postop Eval II Evaluation Mental status: Awake and Calm Pain Level: 0 (Difficult to assess because patient is mostly nonverbal. He does not appear to be in any distress.) nausea: No Vomiting: No Complications Anesthesia Complication: No 06/18/24 1140 Date Jaren Arciniega Signature: Date CC: Signed Normal [facility] Surgery Specimen Level [place] 06-18-2024 Surgery Specimen Level IV Patient Age/Sex Location Account Attending Physician ARVIND DOMÍNGUEZ 49/M EN [id number] Osman Chong DO Specimen: [id number] Received: 06/18/24-144 Status: GEETHA Martinez Num: [id number] Spec Type: EGD BIOPSY Belinda Dr: Osman Chong, DO HEADER OPERATION: EGD with biopsy PRE-OP DIAGNOSIS: Abdominal pain TISSUE SUBMITTED: A- Duodenum biopsy, B- Gastric body biopsy MICROSCOPIC DIAGNOSIS A. Duodenum, biopsy: A fragment of duodenal mucosa, no pathologic diagnosis. B. Gastric body, biopsy: Moderate chronic active gastritis. See comment. SJ.mr 06/22/2024 COMMENT B. The results of immunohistochemistry for Helicobacter pylori will be reported separately ([id number]). MICROSCOPIC DESCRIPTION Slides are reviewed. GROSS DESCRIPTION A. Received in fixative is one container labeled with the patient's name and designated Duodenum biopsy. The specimen consists of one irregular fragment of light collado soft tissue that measures 0.5 x 0.4 x 0.1 cm. The specimen is totally submitted in one cassette. B. Received in fixative is one container labeled with the patient's name and designated Gastric body biopsy. The specimen consists of multiple irregular fragments of light collado soft tissue that in aggregate measure 0.9 x 0.4 x 0.1 cm. The specimen is totally submitted in one cassette. 06/19/2024 TC:2 CPT:72284v1 Patient Age/Sex Location Account Attending Physician KUNAL,ARVIND YEFRI 49/M EN [id number] Osman Friend, DO Signed (signature on file) Dr. Ralph Jimenez MD 06/22/24 1217 Normal [facility] Comment on above: Performed By: #### P SUIV #### [facility] Rebecca Morris[place], [place], [address] CNOV 04-21-2024 [facility] Office Visit (FIDELINAWS ) ARVIND DOMÍNGUEZ ([id number]) 1975 M [facility] Date Time Provider Department 04/21/24 11:00 AM NIRAJ ANDINO During your visit today, we recorded the following information about you: Pulse Respiration Blood pressure Weight 75/minute 14/minute 143/89 75.3 kg Niraj Andino APRN.[facility] 04/21/2024 11:18 AM Addendum Chief Complaint Patient presents with: Eye Problem: Left eye HPI Arvind Domínguez is a 48 year old male who presents here today for Above Complaints.. Patient presents for 2 day hx of left eye redness, drainage, and itching. Patient's sister also reports concerns that BP is elevated, mostly during times of agitation. Past medical history, appointments, medications, allergies reviewed. Previous Medical History PAST MEDICAL HISTORY Diagnosis Date Autism GERD (gastroesophageal reflux disease) Mental disability Schizophrenia (HCC) Underweight due to inadequate caloric intake Vitamin D deficiency Previous Surgical History No past surgical history on file. Family History No family history on file. Patient Allergies ALLERGIES No Known Allergies Current Medications Current Outpatient Medications on File Prior to Visit Medication Sig cetirizine HCl (ZYRTEC) 10 mg chewable tablet Take 1 tablet by mouth once daily. ferrous sulfate 220 mg/5 mL elix Take 7.4 mL by mouth once daily. calcium carbonate (CALCIUM ANTACID) 500 mg chew Take 2 tablets by mouth once daily. cyanocobalamin (VITAMIN B-12) 1,000 mcg tab Take 1 tablet by mouth once daily. Takes as a gummie selenium 50 mcg tab Take 1 tablet by mouth once daily. Takes as a gummie Zinc Sulfate 25 mg zinc (110 mg) tab Take 25 tablets by mouth once daily. Takes as a gummie omega-3 DHA-EPA (FISH OIL) 1,200 (144-216) mg capsule Take 1 capsule by mouth daily with breakfast. ascorbic acid, vitamin C, (VITAMIN C) 500 mg tablet Take 1 tablet by mouth once daily. ergocalciferol 50,000 unit capsule (VITAMIN D2, DRISDOL) Take 1 capsule by mouth one time a week. diphenhydrAMINE (BENADRYL) 25 mg capsule Take 1-2 capsules by mouth at bedtime as needed. food supplemt, lactose-reduced (BOOST MEN) 0.08 gram- 0.9 kcal/mL liqd Take 1 Bottle by mouth two times a day before meals. mirtazapine (REMERON) 15 mg tablet Take 15 mg by mouth daily at bedtime. melatonin 10 mg chew Take 1 Each by mouth once daily. pantoprazole DR (PROTONIX) 40 mg tablet Take 1 tablet by mouth once daily. (capsule) fluticasone (FLONASE) 50 mcg/actuation nasal spray Use 1 Casanova in each nostril once daily. loratadine 10 mg dissolvable tablet Take 10 mg by mouth once daily. OLANZapine orally disintegrating (ZYPREXA ZYDIS) 5 mg disintegrating tablet Take 5 mg by mouth daily at bedtime. Nutritional Supplements (ENSURE PUDDING) pudg Take 113 g by mouth twice daily. No current facility-administered medications on file prior to visit. Social History Social History Tobacco Use Smoking status: Never Smokeless tobacco: Never Substance Use Topics Alcohol use: Never Drug use: Never Review of Symptoms REVIEW OF SYSTEMS SEE HPI EXAM: BP 143/89 Pulse 75 Resp 14 Wt 75.3 kg (166 lb) BMI 23.82 kg/m? General Appearance: Well appearing, alert, in no acute distress, well-hydrated, well nourished.. Eyes: Lower conjunctiva red, swollen. Yellow purulent drainage noted. Anicteric sclera. Pupils are equally round and reactive to light. Extraocular movements are intact. Health Maintenance List Depression Screening Never done Anxiety Screening Never done HIV Screening Never done Colorectal Cancer Screening Never done Covid-19 Vaccine() Never done Hepatitis B Vaccine(2 of 3 - 19+ 3-dose series) due on 03/31/2024 Diabetes Screening due on 07/24/2026 Lipid Screening due on 07/24/2028 DTaP,Tdap,Td Vaccine(2 - Td or Tdap) due on 03/03/2034 Influenza Vaccine Completed Hepatitis C Screening Completed ASSESSMENT/PLAN: 1. Bacterial conjunctivitis - ICD9: 372.39, 041.9, ICD10: H10.9 Bacterial - see medication orders - course and contagiousness issues discussed, including hand washing. - Instructed to call if high fever, development of periorbital redness or swelling, eye pain, visual changes, concerns or if symptoms persist. - POLYMYXIN B SULFATE 10,000 UNIT-TRIMETHOPRIM 1 MG/ML EYE DROPS Niraj Andino APRN.UTILITY ENGINEER Allergies As of Date: 04/21/2024 (No Known Allergies) Date Reviewed: 04/21/2024 Reviewed by: Holley Bashir MA - Fully Assessed Reason for Visit: Eye Problem [43] Cmt: Left eye Primary Visit Diagnosis:Bacterial conjunctivitis [H10.9] Order(s):trimethoprim-polym yxin (POLYTRIM) 10,000 unit- 1 mg/mL ophthalmic solutionUse 1 Drop in the left eye every 4 hours for 7 days.Disp: 10 mLRfl: 0 Prescriptions as of 04/21/2024 - trimethoprim-polymyxin (POLYTRIM) 10,000 unit- 1 mg/mL oph (more content not included)... Normal [facility] CNPNon 04-21-2024 CNPN Telephone ([facility]) ARVIND DOMÍNGUEZ ([id number]) 1975 M D Date Time Provider Department 04/21/24 NIRAJ ANDINO [facility] During your visit today, we recorded the following information about you: Allergies As of Date: 04/21/2024 (No Known Allergies) Date Reviewed: 04/21/2024 Reviewed by: Holley Bashir MA - Fully Assessed Prescriptions as of 05/18/2024 - cetirizine HCl (ZYRTEC) 10 mg chewable tablet Take 1 tablet by mouth once daily. - ferrous sulfate 220 mg/5 mL elix Take 7.4 mL by mouth once daily. - calcium carbonate (CALCIUM ANTACID) 500 mg chew Take 2 tablets by mouth once daily. - cyanocobalamin (VITAMIN B-12) 1,000 mcg tab Take 1 tablet by mouth once daily. Takes as a gummie - selenium 50 mcg tab Take 1 tablet by mouth once daily. Takes as a gummie - Zinc Sulfate 25 mg zinc (110 mg) tab Take 25 tablets by mouth once daily. Takes as a gummie - omega-3 DHA-EPA (FISH OIL) 1,200 (144-216) mg capsule Take 1 capsule by mouth daily with breakfast. - ascorbic acid, vitamin C, (VITAMIN C) 500 mg tablet Take 1 tablet by mouth once daily. - ergocalciferol 50,000 unit capsule (VITAMIN D2, DRISDOL) Take 1 capsule by mouth one time a week. - diphenhydrAMINE (BENADRYL) 25 mg capsule Take 1-2 capsules by mouth at bedtime as needed. - food supplemt, lactose-reduced (BOOST MEN) 0.08 gram- 0.9 kcal/mL liqd Take 1 Bottle by mouth two times a day before meals. - mirtazapine (REMERON) 15 mg tablet Take 15 mg by mouth daily at bedtime. - melatonin 10 mg chew Take 1 Each by mouth once daily. - pantoprazole DR (PROTONIX) 40 mg tablet Take 1 tablet by mouth once daily. (capsule) - fluticasone (FLONASE) 50 mcg/actuation nasal spray Use 1 Casanova in each nostril once daily. - loratadine 10 mg dissolvable tablet Take 10 mg by mouth once daily. - OLANZapine orally disintegrating (ZYPREXA ZYDIS) 5 mg disintegrating tablet Take 5 mg by mouth daily at bedtime. - Nutritional Supplements (ENSURE PUDDING) pudg Take 113 g by mouth twice daily. Problem List As Of Date: 04/21/2024 (None) Encounter Status:Closed by TAMMI SAPP on 05/18/24 Normal [facility] Gastroenterology Visit Repor ton 04-14-2024 Gastroenterology Visit Report [facility]enter[facility] [address] [place] [address] OFFICE VISIT Date of Service: 04/14/24 MR#: [id number] Acct: [id number] Name: ARVIND DOMÍNGUEZ Rep #: [id number] : 1975 Provider: ANTHONY Matthews Age/Sex: 48/M Location: [facility] Status: Signed Intake Vital Signs 12/13/23 17:14 Height 6 ft 1 in Intake Visit Reasons: Gastroesophageal reflux disease (GERD) Chief Complaint: constipation and epigastric pain Accompanied by: Sister Allergies No Known Allergies Allergy (Verified 09/29/23 21:08) Have you fallen in the past year?: No Nurse's Note: OV 04.14.24 Pt here to establish care with [facility] for constipation, loose stools, and GERD. POA reports EGD and colonoscopy about 8 years ago. Takes pantoprazole daily. [facility] Medical History Schizophrenia GERD (gastroesophageal reflux disease) Autism Family History Mother Lung cancer Heart disease Father Lung cancer Social History household members: family Smoking Status: Never smoker HPI HPI Chief Complaint: constipation and epigastric pain Details: ARVIND DOMÍNGUEZ, is a 48 M who presents to the office today for establishment with [facility]. Pt is pretty much non verbal and is accompanied by his sister who provides the majority of the history. Pt has periods of epigastric pain and lack of appetite. He does take protonix but she feels this is no helping as he will still rub his epigastrium. He has had an EGD before many years ago. He does belch often and loudly. His stomach also will look bloated on occasion in his sister opinion. He has constipation alternating with looser stools. This is sporadic and hard to predict therefore he does not take anything for the constipation. ROS Const Constitutional: Positive for headache(s) and weight change; No fatigue or fever(s) ENT ENT: Positive for headache(s); No difficulty swallowing Gastro GI: Positive for abdominal pain, bloating, constipation, diarrhea, heartburn and excessive flatus; No belching, change in bowel habits, change in stool character, coffee ground emesis, cramping, difficulty swallowing, feeling full early, incontinent of stools, Vomiting blood/hematemesis, Blood in stool, loose stools, Black,tarry stools, nausea/dyspepsia, pain with swallowing, vomiting or other Musc Musculoskeletal: No joint pain Skin Skin: Positive for dry skin; No yellowing of the eye or itchy eyes Neuro Neurology: Positive for headache(s) Psych Psychiatric: Positive for anxiety, Positive for depression, Positive for paranoia, Positive for Compulsive Behavior and Positive for obsessions/compulsions Endo Endocrine: Positive for weight change; No fatigue Aller/Imm Allergy/Immunologic: No itchy eyes Estrada/Lymp Hematologic/Lymphatic: No easy bleeding or easy bruising Exam Const General: cooperative and comfortable Nutritional Appearance: average body habitus and well nourished HENMT Head: normal to inspection Ears: hearing grossly normal bilaterally Nose: external nose normal Face and sinus: normal facial exam Eyes General: appearance normal, both eyes and all related structures Neck Neck: normal visual inspection Chest Chest palpation inspection: normal inspection of the chest and normal palpation of entire chest wall Resp Effort Inspection: normal respiratory effort Auscultation: Bilateral: Clear to Auscultation Cardio Palpation: normal PMI Rate: regular rate Rhythm: regular rhythm GI Inspection: normal to inspection and distended Auscultation: normal bowel sounds Percussion: normal to percussion Palpation: no hepatosplenomegaly and firm Skin General: no rashes or lesions noted Neuro General: patient alert Extrem General: normal to inspection Psych Affect: normal affect Assessment and Plan Assessment and Plan (1) Gastroesophageal reflux disease: (2) Constipation: Status: Acute Plan: This is a 48 yo male pt with hx of autism and schizophrenia. His sister provides the hx. He has had issues with epigastric pain for some time. I will order an EGD to assess his upper GI tract for gastritis, esophagitis or ulcer. I will prescribe him sucralfate in the meantime. He does also have alternating bowels. I do not feel a colonoscopy would give us much information therefore I do not feel he needs to undergo at this time as the prep would be difficult for him. His sister is agreeable to this as she makes all this medical decisions. -EGD -Continue PPI -Sucralfate -Consider colonoscopy in the future Medications: New sucralfate 10 mL PO BID 8 weeks 1,120 mL 1RF Coding Level of Care Code Off albert kellogg leve (more content not included)... Normal [facility] DOM[facility]NGUEZ ([id number]) 1975 M GRD Date Time Provider Department 04/03/24 [facility] During your visit today, we recorded the following information about you: Niraj Andino APRN.[facility] 04/03/2024 1:37 PM Signed Please let patient's sister know his vitamin d has improved but is still low, continue supplementation. Patient also has high eosinophils which correlates with allergies. Would recommend switching allergy medication. I have sent in a new prescription. Mary Gibson MA 04/03/2024 3:23 PM Signed Call to Chiki and notified her of results and recommendations below. She verbalized understanding. Mary Gibson MA Allergies As of Date: 04/03/2024 (No Known Allergies) Date Reviewed: 04/02/2024 Reviewed by: Holley Bashir MA - Fully Assessed Reason for Visit: Results [95] Primary Visit Diagnosis:Seasonal allergies [J30.2] Order(s):cetirizine HCl (ZYRTEC) 10 mg chewable tabletTake 1 tablet by mouth once daily.Disp: 90 tabletRfl: 1 Prescriptions as of 04/06/2024 - cetirizine HCl (ZYRTEC) 10 mg chewable tablet Take 1 tablet by mouth once daily. - ferrous sulfate 220 mg/5 mL elix Take 7.4 mL by mouth once daily. - calcium carbonate (CALCIUM ANTACID) 500 mg chew Take 2 tablets by mouth once daily. - cyanocobalamin (VITAMIN B-12) 1,000 mcg tab Take 1 tablet by mouth once daily. Takes as a gummie - selenium 50 mcg tab Take 1 tablet by mouth once daily. Takes as a gummie - Zinc Sulfate 25 mg zinc (110 mg) tab Take 25 tablets by mouth once daily. Takes as a gummie - omega-3 DHA-EPA (FISH OIL) 1,200 (144-216) mg capsule Take 1 capsule by mouth daily with breakfast. - ascorbic acid, vitamin C, (VITAMIN C) 500 mg tablet Take 1 tablet by mouth once daily. - ergocalciferol 50,000 unit capsule (VITAMIN D2, DRISDOL) Take 1 capsule by mouth one time a week. - diphenhydrAMINE (BENADRYL) 25 mg capsule Take 1-2 capsules by mouth at bedtime as needed. - food supplemt, lactose-reduced (BOOST MEN) 0.08 gram- 0.9 kcal/mL liqd Take 1 Bottle by mouth two times a day before meals. - mirtazapine (REMERON) 15 mg tablet Take 15 mg by mouth daily at bedtime. - melatonin 10 mg chew Take 1 Each by mouth once daily. - pantoprazole DR (PROTONIX) 40 mg tablet Take 1 tablet by mouth once daily. (capsule) - fluticasone (FLONASE) 50 mcg/actuation nasal spray Use 1 Casanova in each nostril once daily. - loratadine 10 mg dissolvable tablet Take 10 mg by mouth once daily. - OLANZapine orally disintegrating (ZYPREXA ZYDIS) 5 mg disintegrating tablet Take 5 mg by mouth daily at bedtime. - Nutritional Supplements (ENSURE PUDDING) pudg Take 113 g by mouth twice daily. Problem List As Of Date: 04/03/2024 (None) Prescriptions ordered this encounter Disp Refills Start End CETIRIZINE 10 MG CHEWABLE TABLET 90 t* 1 04/03/2024 Route: ORAL Sig: Take 1 tablet by mouth once daily. Encounter Status:Closed by MARY GIBSON on 04/03/24 Normal [facility] 25(OH)D3 SerPl-mCncon 2023 25-hydroxyvitamin D3 [Mass/Vol] 29.6 ng/mL Low 31.0-80.0 [facility] Comment on above: Order Comment: Speci men Type: BLOOD SPECIMENOrdering Facility: [facility] Address: [address] [place] [address] Result Comment: Clas sification of 25 [place] Vitamin D status: Deficiency/Insufficiency: < or = 30 ng/ml. Sufficiency/Optimal Levels: 31-80 ng/mL Toxicity: > 100 ng/mL. Test performed by chemiluminescent immunoassay. Performed By: #### 1 [id number] ####[facility] LABCLIA [id number] [place] [address] [place] CBC W Auto Differential pane l (Bld)on 04-02-2024 Basophils (Bld) [#/Vol] 0.03 10*3/uL Normal <0.11 [facility] Comment on above: Order Comment: Speci men Type: BLOOD SPECIMENOrdering Facility: [facility] Address: [address] [place] [address] Performed By: #### 5 7021-8 ####[facility] LABCLIA [id number] [address] [place] Basophils/100 WBC (Bld) 0.3 % Normal [facility] Comment on above: Order Comment: Speci men Type: BLOOD SPECIMENOrdering Facility: [facility] Address: [address] [place] [address] Performed By: #### 5 7021-8 ####[facility] LABCLIA [id number] [place] [address] [place] Differential cell count method Nom (Bld) Auto Normal [facility] Comment on above: Order Comment: Speci men Type: BLOOD SPECIMENOrdering Facility: [facility] Address: [address] [place] [address] Performed By: #### 5 7021-8 ####[facility] LABCLIA [id number] [place] [address] [place] Eosinophils (Bld) [#/Vol] 1.16 10*3/uL High <0.46 [facility] Comment on above: Order Comment: Speci men Type: BLOOD SPECIMENOrdering Facility: [facility] Address: [address] [place] [address] Performed By: #### 5 7021-8 ####[facility] LABCLIA [id number] [place] [address] [place] Eosinophils/100 WBC (Bld) 13.4 % Normal [facility] Comment on above: Order Comment: Speci men Type: BLOOD SPECIMENOrdering Facility: [facility] Address: [address] [place] [address] Performed By: #### 5 7021-8 ####[facility] LABCLIA [id number] [place] [address] [place] Erythrocyte distribution width (RBC) [Ratio] 13.2 % Normal 11.5-15.0 [facility] Comment on above: Order Comment: Speci men Type: BLOOD SPECIMENOrdering Facility: [facility] Address: [address] [place] [address] Performed By: #### 5 7021-8 ####[facility] LABCLIA [id number] [place] [address] [place] Hematocrit (Bld) [Volume fraction] 44.4 % Normal 39.0-51.0 [facility] Comment on above: Order Comment: Speci men Type: BLOOD SPECIMENOrdering Facility: [facility] Address: [address] [place] [address] Performed By: #### 5 7021-8 ####[facility] LABCLIA [id number] [place] [address] [place] Hemoglobin (Bld) [Mass/Vol] 14.5 g/dL Normal 13.0-17.0 [facility] Comment on above: Order Comment: Speci men Type: BLOOD SPECIMENOrdering Facility: [facility] Address: [address] [place] [address] Performed By: #### 5 7021-8 ####[facility] LABCLIA [id number] [place] [address] [place] Immature granulocytes (Bld) [#/Vol] 0.03 10*3/uL Normal <0.10 [facility] Comment on above: Order Comment: Speci men Type: BLOOD SPECIMENOrdering Facility: [facility] Address: [address] [place] [address] Performed By: #### 5 7021-8 ####[facility] LABCLIA [id number] [place] [address] [place] Immature granulocytes/100 WBC (Bld) 0.3 % Normal [facility] Comment on above: Order Comment: Speci men Type: BLOOD SPECIMENOrdering Facility: [facility] Address: [address] [place] [address] Performed By: #### 5 7021-8 ####[facility] LABCLIA [id number] [place] [address] [place] Lymphocytes (Bld) [#/Vol] 1.86 10*3/uL Normal 1.00-4.00 [facility] Comment on above: Order Comment: Speci men Type: BLOOD SPECIMENOrdering Facility: [facility] Address: [address] [place] [address] Performed By: #### 5 7021-8 ####[facility] LABCLIA [id number] [place] [address] [place] Lymphocytes/100 WBC (Bld) 21.5 % Normal [facility] Comment on above: Order Comment: Speci men Type: BLOOD SPECIMENOrdering Facility: [facility] Address: [address] [place] [address] Performed By: #### 5 7021-8 ####[facility] LABCLIA [id number] [place] [address] [place] MCH (RBC) [Entitic mass] 28.6 pg Normal 26.0-34.0 [facility] Comment on above: Order Comment: Speci men Type: BLOOD SPECIMENOrdering Facility: [facility] Address: [address] [place] [address] Performed By: #### 5 7021-8 ####[facility] LABCLIA [id number] [place] [address] [place] MCHC (RBC) [Mass/Vol] 32.7 g/dL Normal 30.5-36.0 [facility] Comment on above: Order Comment: Speci men Type: BLOOD SPECIMENOrdering Facility: [facility] Address: [address] [place] [address] Performed By: #### 5 7021-8 ####[facility] LABCLIA [id number] [place] [address] [place] MCV (RBC) [Entitic vol] 87.6 fL Normal 80.0-100.0 [facility] Comment on above: Order Comment: Speci men Type: BLOOD SPECIMENOrdering Facility: [facility] Address: [address] [place] [address] Performed By: #### 5 7021-8 ####[facility] LABCLIA [id number] [place] [address] [place] Monocytes (Bld) [#/Vol] 0.61 10*3/uL Normal <0.87 [facility] Comment on above: Order Comment: Speci men Type: BLOOD SPECIMENOrdering Facility: [facility] Address: [address] [place] [address] Performed By: #### 5 7021-8 ####[facility] LABCLIA [id number] [place] [address] [place] Monocytes/100 WBC (Bld) 7.0 % Normal [facility] Comment on above: Order Comment: Speci men Type: BLOOD SPECIMENOrdering Facility: [facility] Address: [address] [place] [address] Performed By: #### 5 7021-8 ####[facility] LABCLIA [id number] [place] [address] [place] Neutrophils (Bld) [#/Vol] 4.97 10*3/uL Normal 1.45-7.50 [facility] Comment on above: Order Comment: Speci men Type: BLOOD SPECIMENOrdering Facility: [facility] Address: [address] [place] [address] Performed By: #### 5 7021-8 ####[facility] LABCLIA [id number] [place] [address] [place] Neutrophils/100 WBC (Bld) 57.5 % Normal [facility] Comment on above: Order Comment: Speci men Type: BLOOD SPECIMENOrdering Facility: [facility] Address: [address] [place] [address] Performed By: #### 5 7021-8 ####[facility] LABCLIA [id number] [place] [address] [place] Nucleated RBC (Bld) [#/Vol] 10*3/uL Normal <0.01 [facility] Comment on above: Order Comment: Speci men Type: BLOOD SPECIMENOrdering Facility: [facility] Address: [address] [place] [address] Performed By: #### 5 7021-8 ####[facility] LABCLIA [id number] [place] [address] [place] Nucleated RBC/100 WBC (Bld) [Ratio] 0.0 /100 WBC Normal [facility] Comment on above: Order Comment: Speci men Type: BLOOD SPECIMENOrdering Facility: [facility] Address: [address] [place] [address] Performed By: #### 5 7021-8 ####[facility] LABCLIA [id number] [place] [address] [place] Platelet mean volume (Bld) [Entitic vol] 11.2 fL Normal 9.0-12.7 [facility] Comment on above: Order Comment: Speci men Type: BLOOD SPECIMENOrdering Facility: [facility] Address: [address] [place] [address] Performed By: #### 5 7021-8 ####[facility] LABIA [id number] [place] [address] [place] Platelets (Bld) [#/Vol] 216 10*3/uL Normal 150-400 [facility] Comment on above: Order Comment: Speci men Type: BLOOD SPECIMENOrdering Facility: [facility] Address: [address] [place] [address] Performed By: #### 5 7021-8 ####[facility] LABCLIA [id number] [place] [address] [place] RBC (Bld) [#/Vol] 5.07 10*6/uL Normal 4.20-6.00 [facility] Comment on above: Order Comment: Speci men Type: BLOOD SPECIMENOrdering Facility: [facility] Address: [address] [place] [address] Performed By: #### 5 7021-8 ####[facility] LABCLIA [id number] [place] [id number] [place] WBC (Bld) [#/Vol] 8.66 10*3/uL Normal 3.70-11.00 [facility] Comment on above: Order Comment: Speci men Type: BLOOD SPECIMENOrdering Facility: [facility] Address: [address] [place] [address] Performed By: #### 5 7021-8 ####[facility] LABCLIA [id number] [place] [id number] [place] CNOVon 04-02-20[facility] ARVIND DOMÍNGUEZ ([id number]) 1975 M GRD Date Time Provider Department 04/02/24 2:40 PM [facility] During your visit today, we recorded the following information about you: Pulse Blood pressure Weight 99/minute 137/87 73.5 kg Niraj Andino, IDALIA.UTILITY ENGINEER 04/02/2024 2:59 PM Signed Chief Complaint Patient presents with: Cough: X1 week HPI Arvind Domínguez is a 48 year old male who presents here today for Above Complaints.. Patient presents for cough, fatigue, and congestion x1 week. Patient's sister reports he is fatigued all the time. Was taken off lexapro to see if that was causing fatigue but there has been minimal improvement. Patient has been agitated more as well. Past medical history, appointments, medications, allergies reviewed. Previous Medical History PAST MEDICAL HISTORY Diagnosis Date Autism GERD (gastroesophageal reflux disease) Mental disability Schizophrenia ([facility]) Underweight due to inadequate caloric intake Vitamin D deficiency Previous Surgical History No past surgical history on file. Family History No family history on file. Patient Allergies ALLERGIES No Known Allergies Current Medications Current Outpatient Medications on File Prior to Visit Medication Sig escitalopram oxalate (LEXAPRO) 5 mg/5 mL solution Take 5 mg by mouth daily at bedtime. (Patient not taking: Reported on 04/02/2024) ferrous sulfate 220 mg/5 mL elix Take 7.4 mL by mouth once daily. calcium carbonate (CALCIUM ANTACID) 500 mg chew Take 2 tablets by mouth once daily. cyanocobalamin (VITAMIN B-12) 1,000 mcg tab Take 1 tablet by mouth once daily. Takes as a gummie selenium 50 mcg tab Take 1 tablet by mouth once daily. Takes as a gummie Zinc Sulfate 25 mg zinc (110 mg) tab Take 25 tablets by mouth once daily. Takes as a gummie omega-3 DHA-EPA (FISH OIL) 1,200 (144-216) mg capsule Take 1 capsule by mouth daily with breakfast. ascorbic acid, vitamin C, (VITAMIN C) 500 mg tablet Take 1 tablet by mouth once daily. ergocalciferol 50,000 unit capsule (VITAMIN D2, DRISDOL) Take 1 capsule by mouth one time a week. diphenhydrAMINE (BENADRYL) 25 mg capsule Take 1-2 capsules by mouth at bedtime as needed. food supplemt, lactose-reduced (BOOST MEN) 0.08 gram- 0.9 kcal/mL liqd Take 1 Bottle by mouth two times a day before meals. mirtazapine (REMERON) 15 mg tablet Take 15 mg by mouth daily at bedtime. melatonin 10 mg chew Take 1 Each by mouth once daily. pantoprazole DR (PROTONIX) 40 mg tablet Take 1 tablet by mouth once daily. (capsule) fluticasone (FLONASE) 50 mcg/actuation nasal spray Use 1 Casanova in each nostril once daily. loratadine 10 mg dissolvable tablet Take 10 mg by mouth once daily. OLANZapine orally disintegrating (ZYPREXA ZYDIS) 5 mg disintegrating tablet Take 5 mg by mouth daily at bedtime. Nutritional Supplements (ENSURE PUDDING) pudg Take 113 g by mouth twice daily. No current facility-administered medications on file prior to visit. Social History Social History Tobacco Use Smoking status: Never Smokeless tobacco: Never Substance Use Topics Alcohol use: Never Drug use: Never Review of Symptoms REVIEW OF SYSTEMS SEE HPI EXAM: BP 137/87 Pulse 99 Wt 73.5 kg (162 lb) SpO2 97% BMI 23.24 kg/m? General Appearance: Well appearing, alert, in no acute distress, well-hydrated, well nourished.. Ears: External ears normal, canals clear. Nose/Sinuses: Nares normal, septum midline, mucosa normal, no drainage or sinus tenderness. Oropharynx: Lips, mucosa, and tongue normal, teeth and gums normal, oropharynx normal. Neck: Supple, no adenopathy; thyroid symmetric, normal size, no bruits. Lungs: Lungs clear to auscultation. No wheezing, rhonchi, rales.. Heart: RRR without murmur, gallop, or rubs. No ectopy. Health Maintenance List Depression Screening Never done Anxiety Screening Never done HIV Screening Never done Colorectal Cancer Screening Never done Covid-19 Vaccine(2023-) Never done Hepatitis B Vaccine(2 of 3 - 19+ 3-dose series) due on 03/31/2024 Diabetes Screening due on 07/24/2026 Lipid Screening due on 07/24/2028 DTaP,Tdap,Td Vaccine(2 - Td or Tdap) due on 03/03/2034 Influenza Vaccine Completed Hepatitis C Screening Completed ASSESSMENT/PLAN: 1. Acute cough - ICD9: 786.2, ICD10: R05.1 (primary diagnosis) - XR CHEST 2V FRONTAL/LAT 2.Medication management - ICD9: V58.69, ICD10: Z79.899 - THYROID STIMULATING HORMONE - COMPLETE BLOOD COUNT AND DIFFERENTIAL 3. Vitamin D deficiency - ICD9: 268.9, ICD10: E55.9 - VITAMIN D 25 HYDROXY Niraj Andino, FLOOR COVERING CONTRACTOR.UTILITY ENGINEER Allergies As of Date: 04/02/2024 (No Known Allergies) Date Reviewed: 04/02/2024 Reviewed by: Holley Bashir MA - Fully Assessed Reason for Visit: Cough [28] Cmt: X1 week Primary Visit Diagnosis:Acute cough [R05.1] (more content not included)... [facility] ARVIND DOMÍNGUEZ ([id number]) 1975 M GRD Date Time Provider Department 04/02/24 NIRAJ ANDINO During your visit today, we recorded the following information about you: Niraj Andino APRN.UTILITY ENGINEER 04/02/2024 3:55 PM Signed Please let patient know their xray is normal. Please let me know if he is not better by Saturday. Mary Gibson MA 04/02/2024 4:08 PM Signed Called and spoke with Chiki. Notified her of results and to update office if not improved by Saturday. She verbalized understanding. Mary Gibson MA Allergies As of Date: 04/02/2024 (No Known Allergies) Date Reviewed: 04/02/2024 Reviewed by: Holley Bashir MA - Fully Assessed Reason for Visit: Results [95] Prescriptions as of 04/02/2024 - ferrous sulfate 220 mg/5 mL elix Take 7.4 mL by mouth once daily. - calcium carbonate (CALCIUM ANTACID) 500 mg chew Take 2 tablets by mouth once daily. - cyanocobalamin (VITAMIN B-12) 1,000 mcg tab Take 1 tablet by mouth once daily. Takes as a gummie - selenium 50 mcg tab Take 1 tablet by mouth once daily. Takes as a gummie - Zinc Sulfate 25 mg zinc (110 mg) tab Take 25 tablets by mouth once daily. Takes as a gummie - omega-3 DHA-EPA (FISH OIL) 1,200 (144-216) mg capsule Take 1 capsule by mouth daily with breakfast. - ascorbic acid, vitamin C, (VITAMIN C) 500 mg tablet Take 1 tablet by mouth once daily. - ergocalciferol 50,000 unit capsule (VITAMIN D2, DRISDOL) Take 1 capsule by mouth one time a week. - diphenhydrAMINE (BENADRYL) 25 mg capsule Take 1-2 capsules by mouth at bedtime as needed. - food supplemt, lactose-reduced (BOOST MEN) 0.08 gram- 0.9 kcal/mL liqd Take 1 Bottle by mouth two times a day before meals. - mirtazapine (REMERON) 15 mg tablet Take 15 mg by mouth daily at bedtime. - melatonin 10 mg chew Take 1 Each by mouth once daily. - pantoprazole DR (PROTONIX) 40 mg tablet Take 1 tablet by mouth once daily. (capsule) - fluticasone (FLONASE) 50 mcg/actuation nasal spray Use 1 Casanova in each nostril once daily. - loratadine 10 mg dissolvable tablet Take 10 mg by mouth once daily. - OLANZapine orally disintegrating (ZYPREXA ZYDIS) 5 mg disintegrating tablet Take 5 mg by mouth daily at bedtime. - Nutritional Supplements (ENSURE PUDDING) pudg Take 113 g by mouth twice daily. Problem List As Of Date: 04/02/2024 (None) Encounter Status:Closed by MARY GIBSON on 04/02/24 Normal [facility] TSH SerPl-aCncon 04-02-2024 TSH Qn 0.771 m[IU]/L Normal 0.270-4.20 0 [facility] Comment on above: Order Comment: Speci men Type: BLOOD SPECIMENOrdering Facility: [facility] Address: [address] [place] [address] Performed By: #### 3 016-3 ####[facility] LABCLIA [id number] [place] [address] [place] XR CHEST 2V FRONTAL/LATon XR CHEST 2V FRONTAL/LAT * * *Final Report* * * DATE OF EXAM: Apr 02 2024 3:16PM WOX [id number] - XR CHEST 2V FRONTAL/LAT / PROCEDURE REASON: Acute cough * * * * Physician Interpretation * * * * EXAMINATION: CHEST RADIOGRAPH (2 VIEW FRONTAL and LATERAL) CLINICAL HISTORY: Acute cough MQ: XC2_6 EXAM DATE/TIME: 04/02/2024 3:16 PM COMPARISON: 05/31/2023 RESULT: Lines, tubes, and devices: None. Lungs and pleura: No consolidation. No lung mass. No pleural effusion. No pneumothorax. Mild elevation of the right hemidiaphragm. Cardiomediastinal silhouette: The cardiomediastinal silhouette appears within normal limits. Bones and soft tissues: Unremarkable. IMPRESSION: No acute radiographic abnormality. Process Control Supervisor: MELINDA Transcribe Date/Time: Apr 02 2024 3:31P Dictated by : MARLON BHATIA MD This examination was interpreted and the report reviewed and electronically signed by: MARLON BHATIA MD on Apr 02 2024 3:32PM EST [id number] Normal [facility] XR Chest PA and Lateralon IMPRESSION: No acute radiographic abnormality. Process Control Supervisor: [facility] Transcribe Date/Time: Apr 02 2024 3:31P Dictated by : MARLON BHATIA MD This examination was interpreted and the report reviewed and electronically signed by: MARLON BHATIA MD on Apr 02 2024 3:32PM EST DIVISION OF RADIOLOGY * * *Final Report* * * DATE OF EXAM: Apr 02 2024 3:16PM WOX [id number] - XR CHEST 2V FRONTAL/LAT / PROCEDURE REASON: Acute cough * * * * Physician Interpretation * * * * EXAMINATION: CHEST RADIOGRAPH (2 VIEW FRONTAL & LATERAL) CLINICAL HISTORY: Acute cough MQ: XC2_6 EXAM DATE/TIME: 04/02/2024 3:16 PM COMPARISON: 05/31/2023 RESULT: Lines, tubes, and devices: None. Lungs and pleura: No consolidation. No lung mass. No pleural effusion. No pneumothorax. Mild elevation of the right hemidiaphragm. Cardiomediastinal silhouette: The cardiomediastinal silhouette appears within normal limits. Bones and soft tissues: Unremarkable. DIVISION OF RADIOLOGY Provider, [facility] - 04/02/2024 * * *Final Report* * * DATE OF EXAM: Apr 02 2024 3:16PM WOX [id number] - XR CHEST 2V FRONTAL/LAT / PROCEDURE REASON: Acute cough * * * * Physician Interpretation * * * * EXAMINATION: CHEST RADIOGRAPH (2 VIEW FRONTAL & LATERAL) CLINICAL HISTORY: Acute cough MQ: XC2_6 EXAM DATE/TIME: 04/02/2024 3:16 PM COMPARISON: 05/31/2023 RESULT: Lines, tubes, and devices: None. Lungs and pleura: No consolidation. No lung mass. No pleural effusion. No pneumothorax. Mild elevation of the right hemidiaphragm. Cardiomediastinal silhouette: The cardiomediastinal silhouette appears within normal limits. Bones and soft tissues: Unremarkable. IMPRESSION IMPRESSION: No acute radiographic abnormality. Process Control Supervisor: MELINDA Transcribe Date/Time: Apr 02 2024 3:31P Dictated by : MARLON BHATIA MD This examination was interpreted and the report reviewed and electronically signed by: MARLON BHATIA MD on Apr 02 2024 3:32PM EST [facility] Radiology Study observation (narrative) [facility] XR Chest PA and LateralOrder ed By: [facility] Provider on 04-02-2024 [facility] 03-17-2024 [place] Telephone (FIDELINAWS) KUNALARVIND KAUFMAN ([id number]) 1975 M GRD Date Time Provider Department 03/17/24 NIRAJ ANDINO During your visit today, we recorded the following information about you: Michelle Tijerina RN 03/17/2024 9:42 AM Signed Patient's sister Chiki calls and wanted provider to know that [facility] off of Lexapro. They are trying to see if that is what is making patient tired and not wanting to do things. If patient continues to be tired after 2 weeks they are looking to take patient off of another medication. SAMANTA Mitchell Danielle, FLOOR COVERING CONTRACTOR.[facility] 03/17/2024 12:16 PM Signed Noted. Allergies As of Date: 03/17/2024 (No Known Allergies) Date Reviewed: 03/13/2024 Reviewed by: Holley Bashir MA - Fully Assessed Reason for Visit: Patient Update [1234] Prescriptions as of 03/17/2024 - ciprofloxacin-dexAMETHasone (CIPRODEX) 0.3-0.1 % otic suspension Use 4 Drops in the left ear two times a day for 7 days. - escitalopram oxalate (LEXAPRO) 5 mg/5 mL solution Take 5 mg by mouth daily at bedtime. - ferrous sulfate 220 mg/5 mL elix Take 7.4 mL by mouth once daily. - calcium carbonate (CALCIUM ANTACID) 500 mg chew Take 2 tablets by mouth once daily. - cyanocobalamin (VITAMIN B-12) 1,000 mcg tab Take 1 tablet by mouth once daily. Takes as a gummie - selenium 50 mcg tab Take 1 tablet by mouth once daily. Takes as a gummie - Zinc Sulfate 25 mg zinc (110 mg) tab Take 25 tablets by mouth once daily. Takes as a gummie - omega-3 DHA-EPA (FISH OIL) 1,200 (144-216) mg capsule Take 1 capsule by mouth daily with breakfast. - ascorbic acid, vitamin C, (VITAMIN C) 500 mg tablet Take 1 tablet by mouth once daily. - ergocalciferol 50,000 unit capsule (VITAMIN D2, DRISDOL) Take 1 capsule by mouth one time a week. - diphenhydrAMINE (BENADRYL) 25 mg capsule Take 1-2 capsules by mouth at bedtime as needed. - food supplemt, lactose-reduced (BOOST MEN) 0.08 gram- 0.9 kcal/mL liqd Take 1 Bottle by mouth two times a day before meals. - mirtazapine (REMERON) 15 mg tablet Take 15 mg by mouth daily at bedtime. - melatonin 10 mg chew Take 1 Each by mouth once daily. - pantoprazole DR (PROTONIX) 40 mg tablet Take 1 tablet by mouth once daily. (capsule) - fluticasone (FLONASE) 50 mcg/actuation nasal spray Use 1 Casanova in each nostril once daily. - loratadine 10 mg dissolvable tablet Take 10 mg by mouth once daily. - OLANZapine orally disintegrating (ZYPREXA ZYDIS) 5 mg disintegrating tablet Take 5 mg by mouth daily at bedtime. - Nutritional Supplements (ENSURE PUDDING) pudg Take 113 g by mouth twice daily. Problem List As Of Date: 03/17/2024 (None) Encounter Status:Closed by NIRAJ ANDINO on 03/17/[facility] Tele[facility] (FAMPWS) ARVIND DOMÍNGUEZ ([id number]) 1975 M GRD Date Time Provider Department 03/16/24 SINAMARIA LUISANIRAJ [facility] During your visit today, we recorded the following information about you: Candace Rascon LPN 03/16/2024 1:55 PM Signed Patient scheduled for nurse visit 03/31/24 to receive Hepatitis B vaccine. Please place order at this time. Candace Rascon LPN Allergies As of Date: 03/16/2024 (No Known Allergies) Date Reviewed: 03/13/2024 Reviewed by: Holley Bashir MA - Fully Assessed Reason for Visit: Orders [681] Primary Visit Diagnosis:Need for vaccination [Z23] Order(s):HEP B VACCINE, 3-DOSE, AGE 20+ YR (ENGERIX-B, RECOMBIVAX HB) [[id number]] Order #: [id number] HEP B VACCINE, 3-DOSE, AGE 20+ YR (ENGERIX-B, RECOMBIVAX HB) [[id number]] Order #: [id number] FUTURE Prescriptions as of 03/17/2024 - ciprofloxacin-dexAMETHasone (CIPRODEX) 0.3-0.1 % otic suspension Use 4 Drops in the left ear two times a day for 7 days. - escitalopram oxalate (LEXAPRO) 5 mg/5 mL solution Take 5 mg by mouth daily at bedtime. - ferrous sulfate 220 mg/5 mL elix Take 7.4 mL by mouth once daily. - calcium carbonate (CALCIUM ANTACID) 500 mg chew Take 2 tablets by mouth once daily. - cyanocobalamin (VITAMIN B-12) 1,000 mcg tab Take 1 tablet by mouth once daily. Takes as a gummie - selenium 50 mcg tab Take 1 tablet by mouth once daily. Takes as a gummie - Zinc Sulfate 25 mg zinc (110 mg) tab Take 25 tablets by mouth once daily. Takes as a gummie - omega-3 DHA-EPA (FISH OIL) 1,200 (144-216) mg capsule Take 1 capsule by mouth daily with breakfast. - ascorbic acid, vitamin C, (VITAMIN C) 500 mg tablet Take 1 tablet by mouth once daily. - ergocalciferol 50,000 unit capsule (VITAMIN D2, DRISDOL) Take 1 capsule by mouth one time a week. - diphenhydrAMINE (BENADRYL) 25 mg capsule Take 1-2 capsules by mouth at bedtime as needed. - food supplemt, lactose-reduced (BOOST MEN) 0.08 gram- 0.9 kcal/mL liqd Take 1 Bottle by mouth two times a day before meals. - mirtazapine (REMERON) 15 mg tablet Take 15 mg by mouth daily at bedtime. - melatonin 10 mg chew Take 1 Each by mouth once daily. - pantoprazole DR (PROTONIX) 40 mg tablet Take 1 tablet by mouth once daily. (capsule) - fluticasone (FLONASE) 50 mcg/actuation nasal spray Use 1 Casanova in each nostril once daily. - loratadine 10 mg dissolvable tablet Take 10 mg by mouth once daily. - OLANZapine orally disintegrating (ZYPREXA ZYDIS) 5 mg disintegrating tablet Take 5 mg by mouth daily at bedtime. - Nutritional Supplements (ENSURE PUDDING) pudg Take 113 g by mouth twice daily. Problem List As Of Date: 03/16/2024 (None) Encounter Status:Closed by CANDACE RASCON on 03/17/24 [facility] CNOVchilo 03-13-2024 CNOV Office Visit (FAMPWS ) ARVIND DOMÍNGUEZ ([id number]) 1975 M GRD Date Time Provider Department 03/13/24 2:20 PM NIRAJ ANDINO During your visit today, we recorded the following information about you: Temperature Pulse Respiration Blood pressure 98.5 degrees 88/minute 14/minute 122/77 Weight 73.9 kg Niraj Andino APRN.CNP 03/13/2024 3:05 PM Signed Chief Complaint Patient presents with: Diarrhea: X 3 days Fatigue: X several months HPI Arvind Domínguez is a 48 year old male who presents here today for Above Complaints.. Patient presents for multiple complaints. Patient's sister reports patient has had decreased appetite, increased sleeping, pulling on ears and runny nose. Patient continues to alternate between diarrhea and constipation, seeing GI in March. Past medical history, appointments, medications, allergies reviewed. Previous Medical History PAST MEDICAL HISTORY Diagnosis Date Autism GERD (gastroesophageal reflux disease) Mental disability Schizophrenia (HCC) Underweight due to inadequate caloric intake Vitamin D deficiency Previous Surgical History No past surgical history on file. Family History No family history on file. Patient Allergies ALLERGIES No Known Allergies Current Medications Current Outpatient Medications on File Prior to Visit Medication Sig escitalopram oxalate (LEXAPRO) 5 mg/5 mL solution Take 5 mg by mouth daily at bedtime. ferrous sulfate 220 mg/5 mL elix Take 7.4 mL by mouth once daily. calcium carbonate (CALCIUM ANTACID) 500 mg chew Take 2 tablets by mouth once daily. cyanocobalamin (VITAMIN B-12) 1,000 mcg tab Take 1 tablet by mouth once daily. Takes as a gummie selenium 50 mcg tab Take 1 tablet by mouth once daily. Takes as a gummie Zinc Sulfate 25 mg zinc (110 mg) tab Take 25 tablets by mouth once daily. Takes as a gummie omega-3 DHA-EPA (FISH OIL) 1,200 (144-216) mg capsule Take 1 capsule by mouth daily with breakfast. ascorbic acid, vitamin C, (VITAMIN C) 500 mg tablet Take 1 tablet by mouth once daily. ergocalciferol 50,000 unit capsule (VITAMIN D2, DRISDOL) Take 1 capsule by mouth one time a week. diphenhydrAMINE (BENADRYL) 25 mg capsule Take 1-2 capsules by mouth at bedtime as needed. food supplemt, lactose-reduced (BOOST MEN) 0.08 gram- 0.9 kcal/mL liqd Take 1 Bottle by mouth two times a day before meals. mirtazapine (REMERON) 15 mg tablet Take 15 mg by mouth daily at bedtime. melatonin 10 mg chew Take 1 Each by mouth once daily. pantoprazole DR (PROTONIX) 40 mg tablet Take 1 tablet by mouth once daily. (capsule) fluticasone (FLONASE) 50 mcg/actuation nasal spray Use 1 Casanova in each nostril once daily. loratadine 10 mg dissolvable tablet Take 10 mg by mouth once daily. OLANZapine orally disintegrating (ZYPREXA ZYDIS) 5 mg disintegrating tablet Take 5 mg by mouth daily at bedtime. Nutritional Supplements (ENSURE PUDDING) pudg Take 113 g by mouth twice daily. No current facility-administered medications on file prior to visit. Social History Social History Tobacco Use Smoking status: Never Smokeless tobacco: Never Substance Use Topics Alcohol use: Never Drug use: Never Review of Symptoms REVIEW OF SYSTEMS SEE HPI EXAM: BP 122/77 Pulse 88 Temp 36.9 ?C (98.5 ?F) Resp 14 Wt 73.9 kg (163 lb) BMI 23.39 kg/m? General Appearance: Well appearing, alert, in no acute distress, well-hydrated, well nourished.. Ears: Positive findings: R TM: normal, L TM: normal, cerumen on left, amount Large. Nose/Sinuses: Positive findings: clear rhinorrhea. Oropharynx: Lips, mucosa, and tongue normal, teeth and gums normal, oropharynx normal. Neck: Supple, no adenopathy; thyroid symmetric, normal size, no bruits. Health Maintenance List Depression Screening Never done Anxiety Screening Never done HIV Screening Never done Colorectal Cancer Screening Never done Covid-19 Vaccine(2023-) Never done Hepatitis B Vaccine(2 of 3 - 19+ 3-dose series) due on 03/31/2024 Diabetes Screening due on 07/24/2026 Lipid Screening due on 07/24/2028 DTaP,Tdap,Td Vaccine(2 - Td or Tdap) due on 03/03/2034 Influenza Vaccine Completed Hepatitis C Screening Completed ASSESSMENT/PLAN: 1. Acute otitis externa of left ear, unspecified type - ICD9: 380.10, ICD10: H60.502 (primary diagnosis) - CIPROFLOXACIN 0.3 %-DEXAMETHASONE 0.1 % EAR DROPS,SUSPENSION 2. Impacted cerumen of left ear - ICD9: 380.4, ICD10: H61.22 -Large amount of dark impacted cerumen to left ear removed with warm tap water. Cerumen loosened but unable to flush due to size. Curette used to dislodge cerumen in two large pieces, patient tolerated well. TM visualized without redness. Ear canal very red and inflamed. 3. Impaired development of adult - ICD9: 783.40, ICD10: R68.89 -Guardianship papers completed for guardianship (more content not included)... Normal [facility] CNPNon 03-13-2024 CNPN Telephone (FAMPWS) ARVIND DOMÍNGUEZ ([id number]) 1975 M GRD Date Time Provider Department 03/13/24 [facility] During your visit today, we recorded the following information about you: Nina Velez, SAMANTA 03/13/2024 12:49 PM Signed Pts sister called in and reports Pt was able to get in to see Dr Chong's [employer] [place] on 04/10/24. She states the DD board needs verification of the Pts autism, so call into [facility] Children to see him. She states the Pt has only we to school one day last week and one day this week. She said isn't sure what's wrong with him, if it's depression. She states his appetite has decreased, he is sleeping more, his nose is watering even with his Claritin, he is sneezing. She reports he has been having bouts of diarrhea and constipation, and denies any change to his medications or diet. She states he has been talking from his head a lot and hold his ear, reports he has been talking to someone that isn't there. She says he has an appointment on 03/16/24 [facility] no longer works there. She reports the last time the Pt got like this it was because he was coming down with something, one time he had Strep and another time and ear ache. Pt was scheduled with Niraj Andino [employer] today at 220 pm. Allergies As of Date: 03/13/2024 (No Known Allergies) Date Reviewed: 03/13/2024 Reviewed by: Holley Bashir MA - Fully Assessed Reason for Visit: Appointment [186] Patient Update [1234] Prescriptions as of 03/13/2024 - ciprofloxacin-dexAMETHasone (CIPRODEX) 0.3-0.1 % otic suspension Use 4 Drops in the left ear two times a day for 7 days. - escitalopram oxalate (LEXAPRO) 5 mg/5 mL solution Take 5 mg by mouth daily at bedtime. - ferrous sulfate 220 mg/5 mL elix Take 7.4 mL by mouth once daily. - calcium carbonate (CALCIUM ANTACID) 500 mg chew Take 2 tablets by mouth once daily. - cyanocobalamin (VITAMIN B-12) 1,000 mcg tab Take 1 tablet by mouth once daily. Takes as a gummie - selenium 50 mcg tab Take 1 tablet by mouth once daily. Takes as a gummie - Zinc Sulfate 25 mg zinc (110 mg) tab Take 25 tablets by mouth once daily. Takes as a gummie - omega-3 DHA-EPA (FISH OIL) 1,200 (144-216) mg capsule Take 1 capsule by mouth daily with breakfast. - ascorbic acid, vitamin C, (VITAMIN C) 500 mg tablet Take 1 tablet by mouth once daily. - ergocalciferol 50,000 unit capsule (VITAMIN D2, DRISDOL) Take 1 capsule by mouth one time a week. - diphenhydrAMINE (BENADRYL) 25 mg capsule Take 1-2 capsules by mouth at bedtime as needed. - food supplemt, lactose-reduced (BOOST MEN) 0.08 gram- 0.9 kcal/mL liqd Take 1 Bottle by mouth two times a day before meals. - mirtazapine (REMERON) 15 mg tablet Take 15 mg by mouth daily at bedtime. - melatonin 10 mg chew Take 1 Each by mouth once daily. - pantoprazole DR (PROTONIX) 40 mg tablet Take 1 tablet by mouth once daily. (capsule) - fluticasone (FLONASE) 50 mcg/actuation nasal spray Use 1 Casanova in each nostril once daily. - loratadine 10 mg dissolvable tablet Take 10 mg by mouth once daily. - OLANZapine orally disintegrating (ZYPREXA ZYDIS) 5 mg disintegrating tablet Take 5 mg by mouth daily at bedtime. - Nutritional Supplements (ENSURE PUDDING) pudg Take 113 g by mouth twice daily. Problem List As Of Date: 03/13/2024 (None) Encounter Status:Closed by NINA VELEZ on 03/13/24 [facility] 03-03-2024 [facility] Nurse Visit (FAMPWS) ARVIND DOMÍNGUEZ ([id number]) 1975 M D Date Time Provider Department 03/03/24 3:45 PM [facility] During your visit today, we recorded the following information about you: Candace Rascon LPN 03/03/2024 4:14 PM Signed Patient presents for Hep B, TDAP, and Flu vaccines. Denies any problems at this time. Tolerated injections well. Candace Rascon LPN Allergies As of Date: 03/03/2024 (No Known Allergies) Date Reviewed: 02/20/2024 Reviewed by: Holely Bashir MA - Fully Assessed Reason for Visit: Imm/Inj [58] Visit Diagnosis:Encounter for immunization [Z23] Order(s):INFLUENZA VACCINE, AGE 6MO-64YR, TRIVALENT (AFLURIA, FLULAVAL, FLUVIRIN, FLUZONE) [[id number]] Order #: [id number] Prescriptions as of 03/03/2024 - escitalopram oxalate (LEXAPRO) 5 mg/5 mL solution Take 5 mg by mouth daily at bedtime. - ferrous sulfate 220 mg/5 mL elix Take 7.4 mL by mouth once daily. - calcium carbonate (CALCIUM ANTACID) 500 mg chew Take 2 tablets by mouth once daily. - cyanocobalamin (VITAMIN B-12) 1,000 mcg tab Take 1 tablet by mouth once daily. Takes as a gummie - selenium 50 mcg tab Take 1 tablet by mouth once daily. Takes as a gummie - Zinc Sulfate 25 mg zinc (110 mg) tab Take 25 tablets by mouth once daily. Takes as a gummie - omega-3 DHA-EPA (FISH OIL) 1,200 (144-216) mg capsule Take 1 capsule by mouth daily with breakfast. - ascorbic acid, vitamin C, (VITAMIN C) 500 mg tablet Take 1 tablet by mouth once daily. - ergocalciferol 50,000 unit capsule (VITAMIN D2, DRISDOL) Take 1 capsule by mouth one time a week. - diphenhydrAMINE (BENADRYL) 25 mg capsule Take 1-2 capsules by mouth at bedtime as needed. - food supplemt, lactose-reduced (BOOST MEN) 0.08 gram- 0.9 kcal/mL liqd Take 1 Bottle by mouth two times a day before meals. - mirtazapine (REMERON) 15 mg tablet Take 15 mg by mouth daily at bedtime. - melatonin 10 mg chew Take 1 Each by mouth once daily. - pantoprazole DR (PROTONIX) 40 mg tablet Take 1 tablet by mouth once daily. (capsule) - fluticasone (FLONASE) 50 mcg/actuation nasal spray Use 1 Casanova in each nostril once daily. - loratadine 10 mg dissolvable tablet Take 10 mg by mouth once daily. - OLANZapine orally disintegrating (ZYPREXA ZYDIS) 5 mg disintegrating tablet Take 5 mg by mouth daily at bedtime. - Nutritional Supplements (ENSURE PUDDING) pudg Take 113 g by mouth twice daily. Problem List As Of Date: 03/03/2024 (None) Encounter Status:Closed by CANDACE RASCON [facility] 03/03/24 [facility] ([facility]) KUANL,ARVIND ([id number]) 1975 M GRD Date Time Provider Department 02/27/24 NIRAJ ANDINO During your visit today, we recorded the following information about you: Candace Rascon LPN 02/27/2024 8:21 AM Signed Patient scheduled for nurse visit 03/03/24 to receive TDAP vaccine. Please place order at this time. Candace Rascon LPN Allergies As of Date: 02/27/2024 (No Known Allergies) Date Reviewed: 02/20/2024 Reviewed by: Holley Bashir MA - Fully Assessed Reason for Visit: Orders [681] Visit Diagnosis:Encounter for immunization [Z23] Order(s):TDAP VACCINE, AGE 7+ YR (ADACEL, BOOSTRIX) [[id number]] Order #: [id number] Prescriptions as of 02/28/2024 - amoxicillin (AMOXIL) 250 mg/5 mL suspension Take 10 mL by mouth two times a day for 10 days. - escitalopram oxalate (LEXAPRO) 5 mg/5 mL solution Take 5 mg by mouth daily at bedtime. - ferrous sulfate 220 mg/5 mL elix Take 7.4 mL by mouth once daily. - calcium carbonate (CALCIUM ANTACID) 500 mg chew Take 2 tablets by mouth once daily. - cyanocobalamin (VITAMIN B-12) 1,000 mcg tab Take 1 tablet by mouth once daily. Takes as a gummie - selenium 50 mcg tab Take 1 tablet by mouth once daily. Takes as a gummie - Zinc Sulfate 25 mg zinc (110 mg) tab Take 25 tablets by mouth once daily. Takes as a gummie - omega-3 DHA-EPA (FISH OIL) 1,200 (144-216) mg capsule Take 1 capsule by mouth daily with breakfast. - ascorbic acid, vitamin C, (VITAMIN C) 500 mg tablet Take 1 tablet by mouth once daily. - ergocalciferol 50,000 unit capsule (VITAMIN D2, DRISDOL) Take 1 capsule by mouth one time a week. - diphenhydrAMINE (BENADRYL) 25 mg capsule Take 1-2 capsules by mouth at bedtime as needed. - food supplemt, lactose-reduced (BOOST MEN) 0.08 gram- 0.9 kcal/mL liqd Take 1 Bottle by mouth two times a day before meals. - mirtazapine (REMERON) 15 mg tablet Take 15 mg by mouth daily at bedtime. - melatonin 10 mg chew Take 1 Each by mouth once daily. - pantoprazole DR (PROTONIX) 40 mg tablet Take 1 tablet by mouth once daily. (capsule) - fluticasone (FLONASE) 50 mcg/actuation nasal spray Use 1 Casanova in each nostril once daily. - loratadine 10 mg dissolvable tablet Take 10 mg by mouth once daily. - OLANZapine orally disintegrating (ZYPREXA ZYDIS) 5 mg disintegrating tablet Take 5 mg by mouth daily at bedtime. - Nutritional Supplements (ENSURE PUDDING) pudg Take 113 g by mouth twice daily. Problem List As Of Date: 02/27/2024 (None) Encounter Status:Closed by CANDACE RASCON on 02/28/24 [facility] 02-24-2024 [facility] KUNALARVIND ([id number]) 1975 M GRD Date Time Provider Department 02/24/24 NIRAJ ANDINO [facility] During your visit today, we recorded the following information about you: Niraj Andino APRN.[facility] 02/24/2024 5:21 PM Signed Please let Chiki know Etienne's titers show immunity to everything except hepatitis B. I would recommend completing hepatitis b series as well as updating Dtap since we do not know when his last one was. Nina Velez RN 02/25/2024 8:59 AM Signed Called and left a detailed voicemail notifying patient's guardian Chiki of providers message. Clinic phone number was left in case she had any questions and to get a hold of scheduling to set up Hep B series and Tdap. SAMANTA Armstrong Sherrie 02/26/2024 8:[address] attempt left message to schedule nurse visit. Radha Wall LPN 02/26/2024 10:01 AM Addendum Chiki Jairo returned call and went over notes below, scheduled nurse visit for 03/03 at 345 pm per her request. Pending orders, not sure which D-tap to pend. Radha Wall LPN 02/26/2024 10:01 AM Signed Addended by: RADHA WALL on: 02/26/2024 10:01 AM Modules accepted: Orders Niraj Andino APRN.[employer] 02/27/2024 8:06 AM Signed Addended by: NIRAJ ANDINO on: 02/27/2024 08:06 AM Modules accepted: Orders Allergies As of Date: 02/24/2024 (No Known Allergies) Date Reviewed: 02/20/2024 Reviewed by: Holley Bashir MA - Fully Assessed Reason for Visit: Results [95] Primary Visit Diagnosis:Encounter for immunization [Z23] Order(s):HEP B VACCINE, 3-DOSE, AGE 20+ YR (ENGERIX-B, RECOMBIVAX HB) [[id number]] Order #: [id number]: 3 Prescriptions as of 02/27/2024 - amoxicillin (AMOXIL) 250 mg/5 mL suspension Take 10 mL by mouth two times a day for 10 days. - escitalopram oxalate (LEXAPRO) 5 mg/5 mL solution Take 5 mg by mouth daily at bedtime. - ferrous sulfate 220 mg/5 mL elix Take 7.4 mL by mouth once daily. - calcium carbonate (CALCIUM ANTACID) 500 mg chew Take 2 tablets by mouth once daily. - cyanocobalamin (VITAMIN B-12) 1,000 mcg tab Take 1 tablet by mouth once daily. Takes as a gummie - selenium 50 mcg tab Take 1 tablet by mouth once daily. Takes as a gummie - Zinc Sulfate 25 mg zinc (110 mg) tab Take 25 tablets by mouth once daily. Takes as a gummie - omega-3 DHA-EPA (FISH OIL) 1,200 (144-216) mg capsule Take 1 capsule by mouth daily with breakfast. - ascorbic acid, vitamin C, (VITAMIN C) 500 mg tablet Take 1 tablet by mouth once daily. - ergocalciferol 50,000 unit capsule (VITAMIN D2, DRISDOL) Take 1 capsule by mouth one time a week. - diphenhydrAMINE (BENADRYL) 25 mg capsule Take 1-2 capsules by mouth at bedtime as needed. - food supplemt, lactose-reduced (BOOST MEN) 0.08 gram- 0.9 kcal/mL liqd Take 1 Bottle by mouth two times a day before meals. - mirtazapine (REMERON) 15 mg tablet Take 15 mg by mouth daily at bedtime. - melatonin 10 mg chew Take 1 Each by mouth once daily. - pantoprazole DR (PROTONIX) 40 mg tablet Take 1 tablet by mouth once daily. (capsule) - fluticasone (FLONASE) 50 mcg/actuation nasal spray Use 1 Casanova in each nostril once daily. - loratadine 10 mg dissolvable tablet Take 10 mg by mouth once daily. - OLANZapine orally disintegrating (ZYPREXA ZYDIS) 5 mg disintegrating tablet Take 5 mg by mouth daily at bedtime. - Nutritional Supplements (ENSURE PUDDING) pudg Take 113 g by mouth twice daily. Problem List As Of Date: 02/24/2024 (None) Encounter Status:Closed by LEVAR GREER on 02/26/24 [facility] Telephone ([facility]) KUNALARVIND ([id number]) 1975 M GRD Date Time Provider Department 02/21/24 NIRAJ ANDINO During your visit today, we recorded the following information about you: Niraj Andino APRN.[employer] 02/21/2024 8:55 AM Signed Please let patient know his covid/flu/rsv is negative. I have sent in antibiotics for strep. Patricia Chicas, SAMANTA 02/21/2024 9:03 AM Signed Sister (Chiki) calls and notified of results and providers instructions. Chiki verbalizes understanding. Chiki asking for liquid amoxicillin to be sent in as patient is not able to swallow pills. Pended for review. Patricia Chicas RN Allergies As of Date: 02/21/2024 (No Known Allergies) Date Reviewed: 02/20/2024 Reviewed by: Holley Bashir MA - Fully Assessed Reason for Visit: Results [95] Primary Visit Diagnosis:Sore throat [J02.9] Order(s):amoxicillin (AMOXIL) 250 mg/5 mL suspensionTake 10 mL by mouth two times a day for 10 days.Disp: 200 mLRfl: 0 Prescriptions as of 02/21/2024 - amoxicillin (AMOXIL) 250 mg/5 mL suspension Take 10 mL by mouth two times a day for 10 days. - escitalopram oxalate (LEXAPRO) 5 mg/5 mL solution Take 5 mg by mouth daily at bedtime. - ferrous sulfate 220 mg/5 mL elix Take 7.4 mL by mouth once daily. - calcium carbonate (CALCIUM ANTACID) 500 mg chew Take 2 tablets by mouth once daily. - cyanocobalamin (VITAMIN B-12) 1,000 mcg tab Take 1 tablet by mouth once daily. Takes as a gummie - selenium 50 mcg tab Take 1 tablet by mouth once daily. Takes as a gummie - Zinc Sulfate 25 mg zinc (110 mg) tab Take 25 tablets by mouth once daily. Takes as a gummie - omega-3 DHA-EPA (FISH OIL) 1,200 (144-216) mg capsule Take 1 capsule by mouth daily with breakfast. - ascorbic acid, vitamin C, (VITAMIN C) 500 mg tablet Take 1 tablet by mouth once daily. - ergocalciferol 50,000 unit capsule (VITAMIN D2, DRISDOL) Take 1 capsule by mouth one time a week. - diphenhydrAMINE (BENADRYL) 25 mg capsule Take 1-2 capsules by mouth at bedtime as needed. - food supplemt, lactose-reduced (BOOST MEN) 0.08 gram- 0.9 kcal/mL liqd Take 1 Bottle by mouth two times a day before meals. - mirtazapine (REMERON) 15 mg tablet Take 15 mg by mouth daily at bedtime. - melatonin 10 mg chew Take 1 Each by mouth once daily. - pantoprazole DR (PROTONIX) 40 mg tablet Take 1 tablet by mouth once daily. (capsule) - fluticasone (FLONASE) 50 mcg/actuation nasal spray Use 1 Casanova in each nostril once daily. - loratadine 10 mg dissolvable tablet Take 10 mg by mouth once daily. - OLANZapine orally disintegrating (ZYPREXA ZYDIS) 5 mg disintegrating tablet Take 5 mg by mouth daily at bedtime. - Nutritional Supplements (ENSURE PUDDING) pudg Take 113 g by mouth twice daily. Problem List As Of Date: 02/21/2024 (None) Prescriptions ordered this encounter Disp Refills Start End AMOXICILLIN 500 MG CAPSULE 20 c* 0 02/21/2024 02/21/2024 Route: ORAL Sig: Take 1 capsule by mouth two times a day for 10 days. AMOXICILLIN 250 MG/5 ML ORAL SUSPENS* 200 * 0 02/21/2024 03/02/2024 Route: ORAL Sig: Take 10 mL by mouth two times a day for 10 days. Medications Discontinued During This Encounter Prescriptions - amoxicillin (AMOXIL) 500 mg capsule (Discontinued) Take 1 capsule by mouth two times a day for 10 days. Encounter Status:Closed by NIRAJ ANDINO on [facility]/21/[facility] Office Visit (WALLACEPWS ) ARVIND DOMÍNGUEZ ([id number]) 1975 M GRD Date Time Provider Department 02/20/24 3:20 PM NIRAJ ANDINO During your visit today, we recorded the following information about you: Temperature Pulse Blood pressure Weight 98.5 degrees 90/minute 143/93 72.6 kg Niraj Andino APRN.[employer] 02/20/2024 3:47 PM Signed Chief Complaint Patient presents with: Sore Throat poor appetite: X 3 days HPI Arvind Domínguez is a 48 year old male who presents here today for Above Complaints.. Patient presents for sore throat, cough, and decreased appetite x3 days. Patient is minimally verbal but has been pointing to his throat a lot when asked what is wrong. Also telling sister tired a lot. Patient is afebrile. Also continues to point to his stomach and tell sister it hurts. Past medical history, appointments, medications, allergies reviewed. Previous Medical History PAST MEDICAL HISTORY Diagnosis Date Autism GERD (gastroesophageal reflux disease) Mental disability Schizophrenia (HCC) Underweight due to inadequate caloric intake Vitamin D deficiency Previous Surgical History No past surgical history on file. Family History No family history on file. Patient Allergies ALLERGIES No Known Allergies Current Medications Current Outpatient Medications on File Prior to Visit Medication Sig escitalopram oxalate (LEXAPRO) 5 mg/5 mL solution Take 5 mg by mouth daily at bedtime. ferrous sulfate 220 mg/5 mL elix Take 7.4 mL by mouth once daily. calcium carbonate (CALCIUM ANTACID) 500 mg chew Take 2 tablets by mouth once daily. cyanocobalamin (VITAMIN B-12) 1,000 mcg tab Take 1 tablet by mouth once daily. Takes as a gummie selenium 50 mcg tab Take 1 tablet by mouth once daily. Takes as a gummie Zinc Sulfate 25 mg zinc (110 mg) tab Take 25 tablets by mouth once daily. Takes as a gummie omega-3 DHA-EPA (FISH OIL) 1,200 (144-216) mg capsule Take 1 capsule by mouth daily with breakfast. ascorbic acid, vitamin C, (VITAMIN C) 500 mg tablet Take 1 tablet by mouth once daily. ergocalciferol 50,000 unit capsule (VITAMIN D2, DRISDOL) Take 1 capsule by mouth one time a week. diphenhydrAMINE (BENADRYL) 25 mg capsule Take 1-2 capsules by mouth at bedtime as needed. food supplemt, lactose-reduced (BOOST MEN) 0.08 gram- 0.9 kcal/mL liqd Take 1 Bottle by mouth two times a day before meals. mirtazapine (REMERON) 15 mg tablet Take 15 mg by mouth daily at bedtime. melatonin 10 mg chew Take 1 Each by mouth once daily. pantoprazole DR (PROTONIX) 40 mg tablet Take 1 tablet by mouth once daily. (capsule) fluticasone (FLONASE) 50 mcg/actuation nasal spray Use 1 Casanova in each nostril once daily. loratadine 10 mg dissolvable tablet Take 10 mg by mouth once daily. OLANZapine orally disintegrating (ZYPREXA ZYDIS) 5 mg disintegrating tablet Take 5 mg by mouth daily at bedtime. Nutritional Supplements (ENSURE PUDDING) pudg Take 113 g by mouth twice daily. No current facility-administered medications on file prior to visit. Social History Social History Tobacco Use Smoking status: Never Smokeless tobacco: Never Substance Use Topics Alcohol use: Never Drug use: Never Review of Symptoms REVIEW OF SYSTEMS SEE HPI EXAM: BP 143/93 Pulse 90 Temp 36.9 ?C (98.5 ?F) Wt 72.6 kg (160 lb) BMI 22.96 kg/m? General Appearance: Well appearing, alert, in no acute distress, well-hydrated, well nourished.. Neck: Positive findings: left>right posterior cervical adenopathy. Lungs: Lungs clear to auscultation. No wheezing, rhonchi, rales.. Heart: RRR without murmur, gallop, or rubs. No ectopy. Unable to complete throat evaluation due to patient's compliance and ability to follow directions. Health Maintenance List Depression Screening Never done Anxiety Screening Never done Hepatitis C Screening Never done HIV Screening Never done DTaP,Tdap,Td Vaccine(1 - Tdap) Never done Hepatitis B Vaccine(1 of 3 - 19+ 3-dose series) Never done Colorectal Cancer Screening Never done Influenza Vaccine(1) due on 01/19/2024 Covid-19 Vaccine(2023- season) Never done Diabetes Screening due on 07/24/2026 Lipid Screening due on 07/24/2028 ASSESSMENT/PLAN: 1. Cough in adult - ICD9: 786.2, ICD10: R05.9 (primary diagnosis) - COVID AND INFLUENZA A/B AND RSV PCR, ROUTINE 2. Sore throat - ICD9: 462, ICD10: J02.9 - suspect strep-unable to test patient due to behaviors. - COVID AND INFLUENZA A/B AND RSV PCR, ROUTINE - STREP A MOLECULAR (POC) 3. Decreased appetite - ICD9: 783.0, ICD10: R63.0 - CONSULT TO GASTROENTEROLOGY 4. GERD without esophagitis - ICD9: 530.81, ICD10: K21.9 - CONSULT TO GASTROENTEROLOGY 5. Measles, mumps, rubella (MMR) vaccination status unknown - ICD9: V49.89, ICD10: Z78.9 - RUBELLA TITER, IGG B/O - RUBEOLA (MEASLES)IGG - MUMPS IGG AB 6. Hepatitis vac (more content not included)... Normal [facility] COVID AND INFLUENZA A/B AND RSV PCR, ROUTINEon 02-20-2024 SARS-CoV-2 (COVID-19) RNA MICHAELA+probe Ql (Unsp spec) SARS-COV-2 (AGENT OF COVID-19) RNA: Not detected INFLUENZA A RNA: Not detected INFLUENZA B RNA: Not detected RESPIRATORY SYNCYTIAL VIRUS (RSV) RNA: Not detected Normal [facility] Comment on above: Performed By: #### C VFLRS ####[facility] LABCLIA [id number] [place] [address] [place] DIPHTHERIA IGG ABSon 024 DIPHTHERIA AB 0.1 IU/mL Normal [facility] Comment on above: Order Comment: Speci men Type: BLOOD SPECIMENOrdering Facility: [facility] Address: [address] [place] [address] Result Comment: INTE RPRETIVE INFORMATION: Diphtheria Ab, IgG Antibody concentration of greater than 0.1 IU/mL is usually considered protective. Responder status is determined according to the ratio of a one month post-vaccination sample to pre-vaccination concentrations of Diphtheria IgG Abs as follows: 1. If the one month post-vaccination concentration is less than 1.0 IU/mL, the patient is considered to be a non-responder. 2. If the post-vaccination concentration is greater than or equal to 1.0 IU/mL, a patient with a ratio of less than 1.5 is a non-responder, a ratio of 1.5 to less than 3.0, a weak responder, and a ratio of 3.0 or greater, a good responder. 3. If the pre-vaccination concentration is greater than 1.0 IU/mL, it may be difficult to assess the response based on a ratio alone. A post-vaccination concentration above 2.5 IU/mL in this case is usually adequate. This test was developed and its performance characteristics determined by [facility]. It has not been cleared or approved by the US Food and Drug Administration. This test was performed in a CLIA certified laboratory and is intended for clinical purposes. Performed By: [facility] [address] [place] [address] Acute Care Surgeon: Real Fishman MD, PhD CLIA Number: [id number] Performed By: #### HITESH SUAREZ ####[facility] [id number] [place] [address] HAV IgM Ser Qlon 02-20-2024 HAV IgM Ql (S) Negative Normal Negative [facility] Comment on above: Order Comment: Speci men Type: BLOOD SPECIMENOrdering Facility: [facility] Address: [address] [place] [address] Result Comment: No e vidence of recent infection with Hepatitis A virus. Performed By: #### 2 2314-9, 5195-3, 95832-9 ####[facility] LABCLIA [id number] [place] [address] [place] HBV core IgM Ser Qlon 2023 HBV core IgM Ql (S) Negative Normal Negative [facility] Comment on above: Order Comment: Speci kirill Type: BLOOD SPECIMENOrdering Facility: [facility] Address: [address] [place] [address] Result Comment: No e vidence of recent infection with Hepatitis B virus. Should recent infection be suspected, repeat testing may be considered 3-4 weeks after this draw. Performed By: #### 2 2314-9, 5195-3, 22302-0 ####[facility] LABCLIA [id number] [place] [address] [place] HBV surface Ag Ser Qlon HBV surface Ag Ql (S) Negative Normal Negative [facility] Comment on above: Order Comment: Speci men Type: BLOOD SPECIMENOrdering Facility: [facility] Address: [address] [place] [address] Performed By: #### 2 2314-9, 5195-3, 06771-9 ####[facility] LABCLIA [id number] [place] [address] [place] HCV Ab Ser Qlon 02-20-2024 HCV Ab Ql (S) Negative Normal Negative [facility] Comment on above: Order Comment: Speci [facility] Type: BLOOD SPECIMENOrdering Facility: [facility] Address: [address] [place] [address] Result Comment: The result suggests no evidence of active infection with Hepatitis C virus. Should recent infection be suspected, repeat testing may be considered 4-6 weeks after this draw. Performed By: #### 1 6128-1 ####[facility] LABCLIA [id number] [place] [address] [place] MUMPS IGG ABon 02-20-2024 MuV IgG Ql (S) Positive Normal Positive [facility] Comment on above: Order Comment: Speci [facility] Type: BLOOD SPECIMENOrdering Facility: [facility] Address: [address] [place] [address] Result Comment: The result suggests recent or past exposure to Mumps virus or Mumps vaccination. The current test does not detect neutralizing antibodies. Positive result may also be seen due to presence of passively-transferred antibodies. Please correlate with patient's history. Performed By: #### V ZVG2, MUMPSG, MEASLG ####[facility] LABCLIA [id number] [place] [address] [place] RUBEOLA (MEASLES)IGGon 02-19 MEASLES IGG AB, QUAL Positive Normal Positive [facility] Comment on above: Order Comment: Speci [facility] Type: BLOOD SPECIMENOrdering Facility: [facility] Address: [address] [place] [address] Result Comment: The result suggests recent or past exposure to Measles virus or Measles vaccination. The current test does not detect neutralizing antibodies. Positive result may also be seen due to presence of passively-transferred antibodies. Please correlate with patient's history. Performed By: #### V ZVG2, MUMPSG, MEASLG ####[facility] LABCLIA [id number] [facility] [id number] [address] [place] TETANUS ANTIBODY IGGon 02-19 TETANUS AB 2.6 IU/mL Normal [facility] Comment on above: Order Comment: Speci men Type: BLOOD SPECIMENOrdering Facility: [facility] Address: [address] [place] [address] Result Comment: INTE RPRETIVE INFORMATION: Tetanus Ab, IgG Antibody concentration of greater than 0.1 IU/mL is usually considered protective. Responder status is determined according to the ratio of a one-month post-vaccination sample to pre-vaccination concentration of Tetanus IgG Abs as follows: 1. If the one month post-vaccination concentration is less than 1.0 IU/mL, the patient is considered a non-responder. 2. If the post-vaccination concentration is greater than or equal to 1.0 IU/mL, a patient with a ratio of less than 1.5 is a non-responder, a ratio of 1.5 to less than 3.0, a weak responder, and a ratio of 3.0 or greater, a good responder. 3. If the pre-vaccination concentration is greater than 1.0 IU/mL, it may be difficult to assess the response based on a ratio alone. A post-vaccination concentration above 2.5 IU/mL in this case is usually adequate. This test was developed and its performance characteristics determined by [facility]. It has not been cleared or approved by the US Food and Drug Administration. This test was performed in a CLIA certified laboratory and is intended for clinical purposes. Performed By: [facility] [address] [place] [address] Acute Care Surgeon: Real Fishman MD, PhD CLIA Number: [id number] Performed By: #### HITESH SUAREZ ####[facility] LABORATORIESIA [id number] [place] [address] VARICELLA ZOSTER IGGon 02-19 VARICELLA ZOSTER IGG, QUAL Positive Normal Positive [facility] Comment on above: Order Comment: Speci kirlil Type: BLOOD SPECIMENOrdering Facility: [facility] Address: [address] [place] [address] Result Comment: The result suggests recent or past exposure to Varicella-Zoster virus or chickenpox vaccination or zoster vaccination. Positive result may also be seen due to presence of passively-transferred antibodies. Please correlate with patient's history. Performed By: #### V ZVG2, MUMPSG, MEASLG ####[facility] LABCLIA [id number] [facility] [id number] [place], [place] [address] [place] D/C Summary- SPon 01-29-2024 D/C Summary- SP [facility] Speech Pathology [facility] [address] [place] [address] / REHABILITATION SERVICES DISCHARGE SUMMARY MR#: [id number] Acct: [id number] Name: ARVIND DOMÍNGUEZ Rep #: [id number] : 1975 48 From: Faina Sparrow M.S., CCC-CEMENTER MACHINE Referring Dr.: EB Andino Status: RE G R Insurance: [facility] COMPLETE MEDICAID ST Discharge Summary Discharged: Discharge: ARVIND DOMÍNGUEZ is a 48 year old male who presented to [facility] on 05/24/23 following a dx of non-verbal learning disorder, Autism, and schizophrenia. Pt attended initial evaluation with goals created to target exposure to low tech AAC, choosing pictures of real objects following a verbal label in a field of 5, and matching pictures to tangible objects. After evaluation, Pt attended 29 visits. After his last visit on 12/17/23, follow up visits were no showed/canceled . Pt being discharged from speech therapy caseload on this date d/t Pt absence in attending additional treatment visits. Thank you for allowing me to participate in the care of your patient. Will reevaluate at Pt???s request following script from physician. 01/29/24 [id number] CC: EB Andino RE Signed Normal [facility] XR Skull AP and Lateralon * * *Final Report* * * DATE OF EXAM: Dec 19 2023 3:47PM WOX 5259 - XR SKULL 2V AP/LAT / PROCEDURE REASON: Bony prominence * * * * Physician Interpretation * * * * HISTORY: Bony prominence . Bony prominence behind bilateral ears. TECHNIQUE: XR SKULL 2V AP/LAT Laterality: NOT APPLICABLE Number of different views (projections): 2 COMPARISON: None RESULT: See impression. DIVISION OF RADIOLOGY Provider, Zohreh Aren mike [place] - 12/23/2023 * * *Final Report* * * DATE OF EXAM: Dec 19 2023 3:47PM WOX 5259 - XR SKULL 2V AP/LAT / PROCEDURE REASON: Bony prominence * * * * Physician Interpretation * * * * HISTORY: Bony prominence . Bony prominence behind bilateral ears. TECHNIQUE: XR SKULL 2V AP/LAT Laterality: NOT APPLICABLE Number of different views (projections): 2 COMPARISON: None RESULT: See impression. IMPRESSION IMPRESSION: Limited evaluation due to radiography and superimposed structures/artifacts. Indeterminant increased density overlying the right maxillary sinus. No acute displaced fracture or destructive osseous lesion is visualized given exam limitations, however CT is suggested for further evaluation. Cervical spine degenerative changes. Process Control Supervisor: PSCB Transcribe Date/Time: Dec 23 2023 7:04P Dictated by : JASON FONSECA MD This examination was interpreted and the report reviewed and electronically signed by: JASON FONSECA MD on Dec 23 2023 7:05PM EST [facility] XR Skull AP and LateralOrder ed By: Cc Provider on 12-23-2023 [facility] XR Skull AP and Lateralon Radiology Study observation (narrative) [facility] Absolute lymphocyte countOrd ered By: Kong Maddox on 09-29-2023 Lymphocytes Auto (Unsp spec) [#/Vol] 1.04 10*3/uL 0.83-4.51 [facility] Automated lymphocyte count a s percentage of total leukocytesOrdered By: Kong Maddox on 09-29-2023 Lymphocytes/100 WBC Auto (Unsp spec) 21.9 % 19-41 [facility] Basophil percentageOrdered B y: Kong Maddox on 09-29-2023 Basophils/100 WBC (Bld) 0.6 % 0-1 [facility] Bilirubin [Mass/Vol] 0.50 mg/dL 0.20-1.00 [facility] Comment on above: For patients on eltr ombopag therapy, use of Dimension [place] TBIL is not recommended. Chloride [Moles/Vol] 103 mmol/L 98-107 [facility] Eosinophils/100 WBC (Bld) 7.8 % 0-5 [facility] Glucose [Mass/Vol] 98 mg/dL 74-106 [facility] Hemoglobin (Bld) [Mass/Vol] 13.9 g/dL 13.0-16.5 [facility] Monocytes/100 WBC (Bld) 16.5 % 0-10 [facility] Neutrophils (Bld) [#/Vol] 2.5 10*3/uL 2.0-7.7 [facility] Neutrophils/100 WBC (Bld) 52.8 % 47-70 [facility] Potassium [Moles/Vol] 3.3 mmol/L 3.5-5.1 [facility] Protein [Mass/Vol] 7.0 g/dL 6.4-8.2 [facility] Sodium [Moles/Vol] 137 mmol/L 136-145 [facility] WBC (Bld) [#/Vol] 4.7 10*3/uL 4.4-11.0 [facility] Determination of erythrocyte mean corpuscular volume (MCV)Ordered By: Kong Maddox on 09-29-2023 MCV (RBC) [Entitic vol] 88.4 fL 80-94 [facility] Erythrocyte distribution wid th ratioOrdered By: Kong Maddox on 09-29-2023 Erythrocyte distribution width (RBC) [Ratio] 13.2 % 11.6-14.6 [facility] Erythrocyte distribution wid th standard deviationOrdered By: Kong Maddox on 09-29-2023 Erythrocyte distribution width (RBC) [Entitic vol] 43.0 fL 35.1-43.9 [facility] Hematocrit Auto (Bld) [Volum e fraction]Ordered By: Kong Maddox on 09-29-2023 Hematocrit (Bld) [Volume fraction] 43.3 % 40-54 [facility] Immature granulocytes/100 WB C Auto (Bld)Ordered By: Kong Maddox on 09-29-2023 Immature granulocytes/100 WBC (Bld) 0.400 % 0.0-0.9 [facility] Comment on above: IG% - Immature Granu locytes (promyelocytes, myelocytes and metamyelocytes) > 1% indicates that a LEFT SHIFT is Present. Laboratory - Chemistry and C hemistry - challengeOrdered By: Kong Maddox on 09-29-2023 Albumin/Globulin [Mass ratio] 0.9 {ratio} 0.9-2.4 [facility] ALP [Catalytic activity/Vol] 105 U/L 45-117 [facility] ALT [Catalytic activity/Vol] 66 U/L 16-61 [facility] CO2 [Moles/Vol] 27.0 mmol/L 21.0-32.0 [facility] Globulin (S) [Mass/Vol] 3.7 g/dL 2.2-4.2 [facility] Lipase [Catalytic activity/Vol] 16 U/L 13-75 [facility] Comment on above: Please note:LIPASE r evised reference range effective 22. New Lipase methodology. Expected to produce lower values than the previous assay method. NEW Reference Range: 13 - 75 U/L Urea nitrogen/Creatinine [Mass ratio] 15.7 mg/mg 10-20 [facility] Laboratory - Hematology and Cell countsOrdered By: Kong Maddox on 09-29-2023 MCH (RBC) [Entitic mass] 28.4 pg 27.0-32.0 [facility] MCHC (RBC) [Mass/Vol] 32.1 g/dL 32-36 [facility] Nucleated RBC/100 WBC (Bld) [Ratio] 0 % 0-5 [facility] Platelet mean volume (Bld) [Entitic vol] 10.7 fL 6.2-12.0 [facility] Platelets (Bld) [#/Vol] 206 10*3/uL 150-450 [facility] No Panel InformationOrdered By: Kong Maddox on 09-29-2023 Estimated Creatinine Clearance Calc 100.02 ml/min [facility] Estimated GFR (MDRD) Amer 128 mL/min >60 [facility] Comment on above: GFR Calc Estimated GFR (MDRD) Non-Af Amer 106 mL/min >60 [facility] Comment on above: Non- GFR Calc RBC Auto (Bld) [#/Vol]Ordere d By: Kong Maddox on 09-29-2023 RBC (Bld) [#/Vol] 4.90 10*6/uL 4.6-6.2 [facility] Serum or plasma calcium luci urement (mass/volume)Ordered By: Kong Maddox on 09-29-2023 Calcium [Mass/Vol] 8.5 mg/dL 8.5-10.1 [facility] Serum or plasma creatinine m easurement (mass/volume)Ordered By: Kong Maddox on 09-29-2023 Creatinine [Mass/Vol] 0.83 mg/dL 0.70-1.30 [facility] Comment on above: The validity of the calculated GFR & GFRAA in patients over 70 years has not been determined. Clinical correlation is essential. Serum or plasma urea nitroge n measurement (mass/volume)Ordered By: Kong Maddox on 09-29-2023 Urea nitrogen [Mass/Vol] 13 mg/dL 7-18 [facility] Thin prep Papanicolaou smear with manual screeningOrdered By: Kong Maddox on 09-29-2023 Thin prep Papanicolaou smear with manual screening 3.3 g/dL 3.2-5.0 [facility] Thin prep Papanicolaou smear with manual screening 29 U/L 15-37 [facility] Thin prep Papanicolaou smear with manual screening 7 5-15 [facility] UA DIP, URINE (POC)on 2023 BILIRUBIN UA (POCT) Negative Negative [facility] CLARITY UA (POCT) Clear [facility] COLOR UA (POCT) Yellow [facility] GLUCOSE UA (POCT) Negative Negative mg/dL [facility] Hemoglobin Ql (U) Negative [facility] KETONE UA (POCT) Negative Negative mg/dL [facility] LEUKOCYTES UA (POCT) Negative Negative [facility] NITRITE UA (POCT) Negative Negative [facility] PH UA (POCT) 6.0 4.5 - 8.0 [facility] Protein Ql (U) Negative Negative mg/dL [facility] SPECIFIC GRAVITY UA (POCT) 1.020 1.005 - 1.030 [facility] UROBILINOGEN UA (POCT) 0.2 E.U./dL Gayatri l E.U./dL [facility] Urinalysis complete panel (U )on 09-02-2023 Bacteria LM.HPF (Urine sed) [#/Area] Negative Negative /HPF [facility] Bilirubin Ql (U) Negative Negative [facility] Clarity (Unsp spec) Clear Clear [facility] Color (U) Yellow Yellow [facility] Epithelial cells LM.HPF (Urine sed) [#/Area] None Seen [facility] Glucose Test strip (U) [Mass/Vol] Negative Negative [facility] Hemoglobin Ql (U) Negative Negative [facility] Hyaline casts (Urine sed) [#/Area] 0 /[LPF] 0 /LPF [facility] Ketones Ql (U) Negative Negative [facility] Leukocyte esterase Test strip Ql (U) Negative Negative [facility] Nitrite Ql (U) Negative Negative [facility] pH (U) 6.0 [pH] <8.5 [facility] Protein (U) [Mass/Vol] Negative Negative Cl [facility] RBC LM.HPF (Urine sed) [#/Area] 0-2 /HPF 0-2 /HPF [facility] Specific gravity (U) [Rel density] 1.016 1.005 - 1.030 [facility] Urobilinogen Ql (U) 0.2 EU/dL 0.2-1.0 EU/dL [facility] WBC LM.HPF (Urine sed) [#/Area] 0-5 /HPF 0-5 /HPF [facility] XR Abdomen Supine and Uprigh ton 06-25-2023 IMPRESSION: Unremark able abdomen x-ray. Process Control Supervisor: PSCB Transcribe Date/Time: Jun 25 2023 2:41P Dictated by : GEMMA PRATT MD This examination was interpreted and the report reviewed and electronically signed by: GEMMA PRATT MD on Jun 25 2023 2:43PM [facility] DIVISION OF RADIOLOGY * * *Final Report* * * DATE OF EXAM: Jun 25 2023 11:05AM WOX 5289 - XR ABDOMEN 1V SUPINE / PROCEDURE REASON: Decreased appetite * * * * Physician Interpretation * * * * EXAM TITLE: XR ABDOMEN 1V SUPINE EXAM DATE/TIME: 06/25/2023 11:05 AM COMPARISON: None. CLINICAL INDICATION/HISTORY: Loss of appetite. TECHNIQUE: AP views of the abdomen are presented. FINDINGS: No abnormally dilated bowel loops identified. The study is not tailored for the evaluation of free abdominal air. There are no definite abnormal calcifications. The bony structures appear intact. DIVISION OF RADIOLOGY Provider, Neela Hilario - 06/25/2023 * * *Final Report* * * DATE OF EXAM: Jun 25 2023 11:05AM WOX 5289 - XR ABDOMEN 1V SUPINE / PROCEDURE REASON: Decreased appetite * * * * Physician Interpretation * * * * EXAM TITLE: XR ABDOMEN 1V SUPINE EXAM DATE/TIME: 06/25/2023 11:05 AM COMPARISON: None. CLINICAL INDICATION/HISTORY: Loss of appetite. TECHNIQUE: AP views of the abdomen are presented. FINDINGS: No abnormally dilated bowel loops identified. The study is not tailored for the evaluation of free abdominal air. There are no definite abnormal calcifications. The bony structures appear intact. IMPRESSION IMPRESSION: Unremarkable abdomen x-ray. Process Control Supervisor: [facility] Transcribe Date/Time: Jun 25 2023 2:41P Dictated by : GEMMA PRATT MD This examination was interpreted and the report reviewed and electronically signed by: GEMMA PRATT MD on Jun 25 2023 2:43PM EST [facility] Radiology Study observation (narrative) [facility] XR Abdomen Supine and Uprigh tOrdered By: Ccf Provider on 06-25-2023 [facility] Influenza virus A and B and SARS-CoV-2 (COVID-19) Ag panel - Upper respiratory specimOrdered By: Kong Maddox on 01-11-2023 SARS-CoV-2 & FLU Antigen (Rapid) SARS-CoV-2 (COVID 19) [facility] Absolute lymphocyte countOrd ered By: Liudmila Mueller on 12-23-2022 Lymphocytes Auto (Unsp spec) [#/Vol] 2.18 10*3/uL 0.83-4.51 [facility] Basophil percentageOrdered B y: Liudmila Mueller on 12-23-2022 Basophils/100 WBC (Bld) 1.1 % 0-1 [facility] Bilirubin [Mass/Vol] 0.50 mg/dL 0.20-1.00 [facility] Comment on above: For patients on eltr ombopag therapy, use of Dimension [place] TBIL is not recommended. Chloride [Moles/Vol] 106 mmol/L 98-107 [facility] Eosinophils/100 WBC (Bld) 8.4 % 0-5 [facility] Glucose [Mass/Vol] 94 mg/dL 74-106 [facility] Neutrophils (Bld) [#/Vol] 4.0 10*3/uL 2.0-7.7 [facility] Neutrophils/100 WBC (Bld) 53.3 % 47-70 [facility] Potassium [Moles/Vol] 4.5 mmol/L 3.5-5.1 [facility] Comment on above: Moderate Hemolysis, Result may be falsely increased. Protein [Mass/Vol] 7.7 g/dL 6.4-8.2 [facility] Sodium [Moles/Vol] 138 mmol/L 136-145 [facility] WBC (Bld) [#/Vol] 7.6 10*3/uL 4.4-11.0 [facility] Blood erythrocytes count (nu mber/volume)Ordered By: Liudmila Mueller on 12-23-2022 RBC (Bld) [#/Vol] 4.95 10*6/uL 4.6-6.2 [facility] Blood hemoglobin measurement (mass/volume)Ordered By: Liudmila Mueller on 12-23-2022 Hemoglobin (Bld) [Mass/Vol] 13.9 g/dL 13.0-16.5 [facility] Blood lymphocytes/100 leukoc ytesOrdered By: Liudmila Mueller on 12-23-2022 Lymphocytes/100 WBC (Bld) 28.7 % 19-41 [facility] Blood monocytes/100 leukocyt esOrdered By: Liudmila Mueller on 12-23-2022 Monocytes/100 WBC (Bld) 8.0 % 0-10 [facility] Blood platelet mean volumeOr dered By: Liudmila Mueller on 12-23-2022 Platelet mean volume (Bld) [Entitic vol] 11.5 fL 6.2-12.0 [facility] Determination of erythrocyte mean corpuscular volume (MCV)Ordered By: Liudmila Mueller on 12-23-2022 MCV (RBC) [Entitic vol] 90.5 fL 80-94 [facility] Hematocrit Auto (Bld) [Volum e fraction]Ordered By: Liudmila Mueller on 12-23-2022 Hematocrit (Bld) [Volume fraction] 44.8 % 40-54 [facility] Laboratory - Chemistry and C hemistry - challengeOrdered By: Liudmila Mueller on 12-23-2022 ALP [Catalytic activity/Vol] 119 U/L 45-117 [facility] ALT [Catalytic activity/Vol] 154 U/L 16-61 [facility] CO2 [Moles/Vol] 27.0 mmol/L 21.0-32.0 [facility] Globulin (S) [Mass/Vol] 3.8 g/dL 2.2-4.2 [facility] Lipase [Catalytic activity/Vol] 27 U/L 13-75 [facility] Comment on above: Please note:LIPASE r evised reference range effective 22. New Lipase methodology. Expected to produce lower values than the previous assay method. NEW Reference Range: 13 - 75 U/L Urea nitrogen/Creatinine [Mass ratio] 21.4 mg/mg 10-20 [facility] Laboratory - Hematology and Cell countsOrdered By: Liudmila Mueller on 12-23-2022 Erythrocyte distribution width (RBC) [Entitic vol] 46.4 fL 35.1-43.9 [facility] Erythrocyte distribution width (RBC) [Ratio] 13.9 % 11.6-14.6 [facility] Immature granulocytes/100 WBC (Bld) 0.500 % 0.0-0.9 [facility] Comment on above: IG% - Immature Granu locytes (promyelocytes, myelocytes and metamyelocytes) > 1% indicates that a LEFT SHIFT is Present. MCH (RBC) [Entitic mass] 28.1 pg 27.0-32.0 [facility] Nucleated RBC/100 WBC (Bld) [Ratio] 0 % 0-5 [facility] MCHC Auto (RBC) [Mass/Vol]Or dered By: Liudmila Mueller on 12-23-2022 MCHC (RBC) [Mass/Vol] 31.0 g/dL 32-36 [facility] No Panel InformationOrdered By: Liudmila Mueller on 12-23-2022 Estimated Creatinine Clearance Calc 92.28 ml/min [facility] Estimated GFR (MDRD) Amer 135 mL/min >60 [facility] Comment on above: GFR Calc Estimated GFR (MDRD) Non-Af Amer 111 mL/min >60 [facility] Comment on above: Non- GFR Calc Platelets bldOrdered By: Chaya Mueller on 12-23-2022 Platelets (Bld) [#/Vol] 200 10*3/uL 150-450 [facility] Serum or plasma albumin luci urement (mass/volume)Ordered By: Liudmila Mueller on 12-23-2022 Albumin [Mass/Vol] 3.9 g/dL 3.2-5.0 [facility] Serum or plasma albumin/glob ulin mass ratioOrdered By: Liudmila Mueller on 12-23-2022 Albumin/Globulin [Mass ratio] 1.0 {ratio} 0.9-2.4 [facility] Serum or plasma calcium luci urement (mass/volume)Ordered By: Liudmila Mueller on 12-23-2022 Calcium [Mass/Vol] 9.0 mg/dL 8.5-10.1 [facility] Serum or plasma creatinine m easurement (mass/volume)Ordered By: Liudmila Mueller on 12-23-2022 Creatinine [Mass/Vol] 0.79 mg/dL 0.70-1.30 [facility] Comment on above: The validity of the calculated GFR & GFRAA in patients over 70 years has not been determined. Clinical correlation is essential. Serum or plasma urea nitroge n measurement (mass/volume)Ordered By: Liudmila Mueller on 12-23-2022 Urea nitrogen [Mass/Vol] 17 mg/dL 7-18 [facility] Thin prep Papanicolaou smear with manual screeningOrdered By: Liudmila Mueller on 12-23-2022 Thin prep Papanicolaou smear with manual screening 69 U/L 15-37 [facility] Comment on above: Moderate Hemolysis, Result may be falsely increased. Thin prep Papanicolaou smear with manual screening 5 5-15 [facility] Absolute lymphocyte countOrd ered By: Mookie Guo on 12-06-2022 Lymphocytes Auto (Unsp spec) [#/Vol] 1.58 10*3/uL 0.83-4.51 [facility] Basophil percentageOrdered B y: Mookie Guo on 12-06-2022 Basophils/100 WBC (Bld) 0.4 % 0-1 [facility] Eosinophils/100 WBC (Bld) 1.5 % 0-5 [facility] Neutrophils (Bld) [#/Vol] 4.4 10*3/uL 2.0-7.7 [facility] Neutrophils/100 WBC (Bld) 66.5 % 47-70 [facility] WBC (Bld) [#/Vol] 6.7 10*3/uL 4.4-11.0 [facility] Basophil percentage 0 SEEN /hpf 0-5 [facility] Chloride [Moles/Vol] 106 mmol/L 98-107 [facility] Glucose [Mass/Vol] 115 mg/dL 74-106 [facility] Comment on above: Fasting Glucose resu lt from 100 to 125 mg/dL suggests IMPAIRED HOMEOSTASIS per A.D.A. criteria. Potassium [Moles/Vol] 4.5 mmol/L 3.5-5.1 [facility] Comment on above: Moderate Hemolysis, Result may be falsely increased. Sodium [Moles/Vol] 138 mmol/L 136-145 [facility] Bilirubin Test strip Ql (U)O rdered By: Mookie Guo on 12-06-2022 Bilirubin Ql (U) Negative Negative [facility] Blood erythrocytes count (nu mber/volume)Ordered By: Mookie Guo on 12-06-2022 RBC (Bld) [#/Vol] 4.83 10*6/uL 4.6-6.2 [facility] Blood hemoglobin measurement (mass/volume)Ordered By: Mookie Guo on 12-06-2022 Hemoglobin (Bld) [Mass/Vol] 13.6 g/dL 13.0-16.5 [facility] Blood lymphocytes/100 leukoc ytesOrdered By: Mookie Howello on 12-06-2022 Lymphocytes/100 WBC (Bld) 23.7 % 19-41 [facility] Blood monocytes/100 leukocyt esOrdered By: Mookie Howello on 12-06-2022 Monocytes/100 WBC (Bld) 7.8 % 0-10 [facility] Blood platelet mean volumeOr dered By: Mookie Guo on 12-06-2022 Platelet mean volume (Bld) [Entitic vol] 11.4 fL 6.2-12.0 [facility] Determination of erythrocyte mean corpuscular volume (MCV)Ordered By: Mookie Guo on 12-06-2022 MCV (RBC) [Entitic vol] 90.3 fL 80-94 [facility] Hematocrit Auto (Bld) [Volum e fraction]Ordered By: Mookielindsey Guo on 12-06-2022 Hematocrit (Bld) [Volume fraction] 43.6 % 40-54 [facility] Ketones Test strip Ql (U)Ord ered By: Mookielindsey Guo on 12-06-2022 Ketones Ql (U) Negative Negative [facility] Laboratory - Chemistry and C hemistry - challengeOrdered By: Mookielindsey Guo on 12-06-2022 CO2 [Moles/Vol] 27.0 mmol/L 21.0-32.0 [facility] Urea nitrogen/Creatinine [Mass ratio] 15.0 mg/mg 10-20 [facility] Laboratory - Hematology and Cell countsOrdered By: Mookielindsey Guo on 12-06-2022 Erythrocyte distribution width (RBC) [Entitic vol] 45.0 fL 35.1-43.9 [facility] Erythrocyte distribution width (RBC) [Ratio] 13.6 % 11.6-14.6 [facility] Immature granulocytes/100 WBC (Bld) 0.100 % 0.0-0.9 [facility] Comment on above: IG% - Immature Granu locytes (promyelocytes, myelocytes and metamyelocytes) > 1% indicates that a LEFT SHIFT is Present. MCH (RBC) [Entitic mass] 28.2 pg 27.0-32.0 [facility] Nucleated RBC/100 WBC (Bld) [Ratio] 0 % 0-5 [facility] MCHC Auto (RBC) [Mass/Vol]Or dered By: Mookie Guo on 12-06-2022 MCHC (RBC) [Mass/Vol] 31.2 g/dL 32-36 [facility] Mucus LM Ql (Urine sed)Order ed By: Mookie Guo on 12-06-2022 Mucus Ql (Urine sed) 0 SEEN /hpf [facility] Nitrite Test strip Ql (U)Ord ered By: Mookie Guo on 12-06-2022 Nitrite Ql (U) Negative Negative [facility] No Panel InformationOrdered By: Mookie Guo on 12-06-2022 Estimated Creatinine Clearance Calc 79.84 ml/min [facility] Estimated GFR (MDRD) Amer 121 mL/min >60 [facility] Comment on above: GFR Calc Estimated GFR (MDRD) Non-Af Amer 100 mL/min >60 [facility] Comment on above: Non- GFR Calc Platelets bldOrdered By: Mookie Guo on 12-06-2022 Platelets (Bld) [#/Vol] 188 10*3/uL 150-450 [facility] Protein Test strip Ql (U)Ord ered By: Mookie Guo on 12-06-2022 Protein Ql (U) Negative Negative [facility] Serum or plasma calcium luci urement (mass/volume)Ordered By: Mookie Guo on 12-06-2022 Calcium [Mass/Vol] 9.3 mg/dL 8.5-10.1 [facility] Serum or plasma creatinine m easurement (mass/volume)Ordered By: Mookie Guo on 12-06-2022 Creatinine [Mass/Vol] 0.87 mg/dL 0.70-1.30 [facility] Comment on above: The validity of the calculated GFR & GFRAA in patients over 70 years has not been determined. Clinical correlation is essential. Serum or plasma urea nitroge n measurement (mass/volume)Ordered By: Mookie Guo on 12-06-2022 Urea nitrogen [Mass/Vol] 13 mg/dL 7-18 [facility] Squamous epithelial cells de tection in urine sediment by light microscopyOrdered By: Mookie Guo on 12-06-2022 Epithelial cells.squamous LM Ql (Urine sed) 0 SEEN /hpf 0-5 [facility] Thin prep Papanicolaou smear with manual screeningOrdered By: Mookie Guo on 12-06-2022 Thin prep Papanicolaou smear with manual screening 5 5-15 [facility] Urine blood detectionOrdered By: Mookie Guo on 12-06-2022 RBC Ql (U) Negative Negative [facility] RBC Ql (U) 0 SEEN /hpf 0-5 [facility] Urine clarityOrdered By: Mookie Guo on 12-06-2022 Clarity (U) Clear Clear [facility] Urine color determinationOrd ered By: Mookie Guo on 12-06-2022 Color (U) Yellow Yellow [facility] Urine glucose detectionOrder ed By: Mookie Guo on 12-06-2022 Glucose Ql (U) Normal mg/dl Normal [facility] Urine leukocyte esterase det ection by dipstickOrdered By: Mookie Guo on 12-06-2022 Leukocyte esterase Test strip Ql (U) Negative Negative [facility] Urine pHOrdered By: Mookie portillo on 12-06-2022 pH (U) 7.0 [pH] 5.0 - 8.0 [facility] Urine sediment bacteria coun t by microscopy (number/high power field)Ordered By: Mookie Guo on 12-06-2022 Bacteria LM.HPF (Urine sed) [#/Area] 0 /[HPF] None Seen [facility] Urine specific gravity measu rementOrdered By: Mookie Guo on 12-06-2022 Specific gravity (U) [Rel density] 1.010 1.002-1.03 0 [facility] Urobilinogen Auto test strip Ql (U)Ordered By: Mookie Guo on 12-06-2022 Urobilinogen Ql (U) Normal mg/dl Normal [facility] [place] Screening (Age 18+)on 04-24-2022 Fall risk assessment a) No falls within the last year [facility] Work Phone: Office Visit (Internal Medic ine)on 04-24-2022 Follow-up visit Diagnoses/Problems Assessed GERD (gastroesophageal reflux disease) (530.81) (K21.9) Allergic rhinitis (477.9) (J30.9) Added by Problem List Migration; 2013-04-22 Schizophrenic disorder (295.90) (F20.9) Schizophrenic disorder Acquired intellectual disability (319) (F79) Added by Problem List Migration; 2013-04-22 Body mass index (BMI) of 19.9 or less in adult (Z68.1) Orders Schizophrenic disorder Renew: OLANZapine 5 MG Oral Tablet Disintegrating; DISSOLVE ONE TABLET IN MOUTH EVERY DAY Rx By: Michelle Neely; Dispense: 90 Days ; #:90 Tablet; Refill: 0;For: Schizophrenic disorder; SARAH = N; Verified Transmission to [id number]; Last Updated By: Pato Flores; 04/24/2022 8:30:38 AM Patient Discussion/Summary counselled eating better / drinking shakes GERD stable occasional constipation follow weights schizophrenia stable on rx no side effects refuses to see psych allergic rhinitis stable mental retardation continue meds as are check labs on follow up follow up 3 months Chief Complaint 3 month medical management History of Present Illnessroutine follow up / no concerns mom present HANDP eating better / drinking shakes GERD stable occasional constipation schizophrenia stable on rx no side effects refuses to see psych allergic rhinitis stable mental retardation Review of Systems Constitutional: not feeling poorly, no fever, no recent weight gain, no recent weight loss, no chills and not feeling tired. Eyes: no blurred vision and no diplopia. ENT: nasal discharge, but no hearing loss, no tinnitus, no earache, no sore throat, no hoarseness, no swollen glands in the neck and as noted in HPI. Cardiovascular: no chest pain, no tightness or heavy pressure, no shortness of breath, no palpitations and no lower extremity edema. Respiratory: no cough, not coughing up sputum and no wheezing that is consistent with asthma. Gastrointestinal: no change in bowel habits, no diarrhea, no constipation, no bloody stools, no nausea, no vomiting, no abdominal pain, no signs and symptoms of ulcer disease, no nathaly colored stools, no intolerance to fatty foods and as noted in HPI. Genitourinary: no urinary frequency, no dysuria, no hematuria, no burning sensation during urination, urinary stream is not smaller and urinary stream does not start and stop. Musculoskeletal: no arthralgias, no joint stiffness, no muscle weakness, no back pain and no difficulty walking. Skin: no rashes, no change in skin color and pigmentation, no skin lesions and no skin lumps. Neurological: no headaches, no dizziness, no seizures, no tingling, no numbness, no signs and symptoms of stroke and no limb weakness. Psychiatric: no confusion, no memory lapses or loss, no depression, no sleep disturbances and as noted in HPI. Endocrine: no goiter, no thyroid disorder, no diabetes mellitus, no excessive thirst, no dry skin, no cold intolerance, no heat intolerance and no increased urinary frequency. Hematologic/Lymphatic: is not slow to heal, does not bleed easily, does not bruise easily, no thrombophlebitis, no anemia and no history of blood transfusion. All other systems have been reviewed and are negative for complaint. Active Problems Problems Abdominal pain (789.00) (R10.9) Acquired intellectual disability (319) (F79) Added by Problem List Migration; 2013-04-22 Acute sinusitis (461.9) (J01.90) Added by Problem List Migration; 2013-04-22 Allergic rhinitis (477.9) (J30.9) Added by Problem List Migration; 2013-04-22 Body mass index (BMI) of 19.9 or less in adult (Z68.1) Cough (786.2) (R05.9) Added by Problem List Migration; 2013-04-22 Depression screening (V79.0) (Z13.31) Eczema (692.9) (L30.9) Encounter for Medicare annual wellness exam (V70.0) (Z00.00) Essential hypertriglyceridemia (272.1) (E78.1) GERD (gastroesophageal reflux disease) (530.81) (K21.9) Hyperglycemia (790.29) (R73.9) Low TSH level (794.5) (R79.89) Malnutrition (263.9) (E46) Malnutrition Mental health disorder (300.9) (F99) Physical exam, routine (V70.0) (Z00.00) Schizophrenic disorder (295.90) (F20.9) Schizophrenic disorder Urinary tract infection (599.0) (N39.0) Added by Problem List Migration; 2013-04-22 Vitamin D deficiency (268.9) (E55.9) Added by Problem List Migration; 2013-04-22 Weight loss, abnormal (783.21) (R63.4) Past Medical History Problems History of abnormal weight loss (V13.89) (Z87.898) Resolved Date: 20 Jan 2016 Added by Problem List Migration; 2013-04-22 History of caloric malnutrition (V12.1) (Z86.39) Resolved Date: 09 Nov 2013 Surgical History Problems Denied: History of Surgery Family History Mother Family history of cardiac disorder (V17.49) (Z82.49) Family history of chronic obstructive pulmonary disease (V17.6) (Z82.5) Father Family history of lung cancer (V16.1) (Z80.1) Social History Problems Caregiver: Family member Never a smoker No alcohol use N (more content not included)... Normal [place] Screening (Age 18+)on 01-23-2022 Fall risk assessment a) No falls within the last year [facility] Work Phone: Office Visit (Internal Medic ine)on 01-23-2022 Follow-up visit Diagnoses/Problems Assessed GERD (gastroesophageal reflux disease) (530.81) (K21.9) Allergic rhinitis (477.9) (J30.9) Added by Problem List Migration; 2013-04-22 Schizophrenic disorder (295.90) (F20.9) Schizophrenic disorder Mental health disorder (300.9) (F99) Body mass index (BMI) of 19.9 or less in adult (Z68.1) Patient Discussion/Summary counselled eating better / drinking shakes GERD stable occasional constipation follow weights schizophrenia stable on rx no side effects refuses to see psych allergic rhinitis stable mental retardation 1 continue meds as are 1 follow up 3 months 1 Amended By: Michelle Neely; Jan 23 2022 9:30 AM ESTChief Complaint 3 month medical management History of Present Illnessroutine follow up / no concerns mom present HANDP eating better / drinking shakes GERD stable occasional constipation schizophrenia stable on rx no side effects refuses to see psych allergic rhinitis stable mental retardation Review of Systems Constitutional: not feeling poorly, no fever, no recent weight gain, no recent weight loss, no chills and not feeling tired. Eyes: no blurred vision and no diplopia. ENT: nasal discharge, but no hearing loss, no tinnitus, no earache, no sore throat, no hoarseness, no swollen glands in the neck and as noted in HPI. Cardiovascular: no chest pain, no tightness or heavy pressure, no shortness of breath, no palpitations and no lower extremity edema. Respiratory: no cough, not coughing up sputum and no wheezing that is consistent with asthma. Gastrointestinal: no change in bowel habits, no diarrhea, no constipation, no bloody stools, no nausea, no vomiting, no abdominal pain, no signs and symptoms of ulcer disease, no nathaly colored stools, no intolerance to fatty foods and as noted in HPI. Genitourinary: no urinary frequency, no dysuria, no hematuria, no burning sensation during urination, urinary stream is not smaller and urinary stream does not start and stop. Musculoskeletal: no arthralgias, no joint stiffness, no muscle weakness, no back pain and no difficulty walking. Skin: no rashes, no change in skin color and pigmentation, no skin lesions and no skin lumps. Neurological: no headaches, no dizziness, no seizures, no tingling, no numbness, no signs and symptoms of stroke and no limb weakness. Psychiatric: no confusion, no memory lapses or loss, no depression, no sleep disturbances and as noted in HPI. Endocrine: no goiter, no thyroid disorder, no diabetes mellitus, no excessive thirst, no dry skin, no cold intolerance, no heat intolerance and no increased urinary frequency. Hematologic/Lymphatic: is not slow to heal, does not bleed easily, does not bruise easily, no thrombophlebitis, no anemia and no history of blood transfusion. All other systems have been reviewed and are negative for complaint. Active Problems Problems Abdominal pain (789.00) (R10.9) Acquired intellectual disability (319) (F79) Added by Problem List Migration; 2013-04-22 Acute sinusitis (461.9) (J01.90) Added by Problem List Migration; 2013-04-22 Allergic rhinitis (477.9) (J30.9) Added by Problem List Migration; 2013-04-22 Body mass index (BMI) of 19.9 or less in adult (Z68.1) Cough (786.2) (R05.9) Added by Problem List Migration; 2013-04-22 Depression screening (V79.0) (Z13.31) Eczema (692.9) (L30.9) Encounter for Medicare annual wellness exam (V70.0) (Z00.00) Essential hypertriglyceridemia (272.1) (E78.1) GERD (gastroesophageal reflux disease) (530.81) (K21.9) Hyperglycemia (790.29) (R73.9) Low TSH level (794.5) (R79.89) Malnutrition (263.9) (E46) Malnutrition Mental health disorder (300.9) (F99) Physical exam, routine (V70.0) (Z00.00) Schizophrenic disorder (295.90) (F20.9) Schizophrenic disorder Urinary tract infection (599.0) (N39.0) Added by Problem List Migration; 2013-04-22 Vitamin D deficiency (268.9) (E55.9) Added by Problem List Migration; 2013-04-22 Weight loss, abnormal (783.21) (R63.4) Past Medical History Problems History of abnormal weight loss (V13.89) (Z87.898) Resolved Date: 20 Jan 2016 Added by Problem List Migration; 2013-04-22 History of caloric malnutrition (V12.1) (Z86.39) Resolved Date: 09 Nov 2013 Surgical History Problems Denied: History of Surgery Family History Mother Family history of cardiac disorder (V17.49) (Z82.49) Family history of chronic obstructive pulmonary disease (V17.6) (Z82.5) Father Family history of lung cancer (V16.1) (Z80.1) Social History Problems Caregiver: Family member Never a smoker No alcohol use No drug use Allergies NoKnown No Known Allergies Recorded By: Kerri Tracey; 08/04/2013 2:31:03 PM Current Meds Medication NameInstruction Allergy Relief 10 MG TBDPAllergy Relief with D Dissolving Tablet 1 daily as needed Ensure Plus Oral LiquidUSE DIRECTED. 1 can daily Fluticasone Propionate 50 MCG/ACT Nasal SuspensionUSE 1 SPRAY IN (more content not included)... Normal [place] Risk Screeningon 10-25 Adult depression screening assessment No [facility] Work Phone: Fall risk assessment a) No falls within the last year [facility] Work Phone: Laboratory - Chemistry and C hemistry - challengeon 10-25-2021 Cholesterol [Mass/Vol] 198 mg/dL [employer] Work Phone: Medicare Annual Wellness Vis iton 10-25-2021 Medicare Annual Wellness Visit *Chief Complaint subsequent medicare physical Adult Risk Screening There are no spiritual/cultural practices/values/needs that are important to know Initial Fall Risk Screening: ARVIND has not fallen in the last 6 months. Advanced Care Planning discussed and documented advance care plan or surrogate decision maker documented in the medical record. Living Will. Living Will: No living will on file. Healthcare POA: No healthcare proxy on file. Declaration of Mental Health Treatment: Declaration of mental health treatment on file. Did not bring. Requested patient bring documents again on next visit. Tobacco Screening: ARVIND does not use tobacco. Domestic Violence Screen: Does not feel threatened or abused physically, emotionally or sexually. Do you feel UNSAFE? The patient feels safe in the home. Depression/Suicide Screening: During the past 2 weeks, the patient has not felt down, depressed or hopeless. During the past 2 weeks, the patient has not felt little interest or pleasure in doing things. Single alcohol screening question: Patient Declined/Screening not indicated. Single substance abuse screening question: Patient Declined/Screening not indicated. Procedure or Sedation Areas: patient has not had alcohol, recreational drugs, or prescription drugs for non-medical reasons this morning. Nutrition Screening: In the past month, there was not a day when I or anyone in my family went hungry because there was not enough food. Patient Education: The patient or the person with them need(s) extra help because of problems with: learning The patient is not comfortable filling out medical forms. Food Insecurity: 1. Within the past 12 months, you worried that your food would run out before you got money to buy more: No 2. Within the past 12 months, the food you bought just didn't last and you didn't have money to get more: No History of Present Illness The patient is being seen for the subsequent annual wellness visit. Past Medical, Surgical and Family History: reviewed and updated in chart. Interval History: Patient has not been hospitalized previously. Medications and Supplements: Review of all medications by a prescribing practitioner or clinical pharmacist (such as prescriptions, OTCs, herbal therapies and supplements) documented in the medical record. No, the patient is not using opioids. Patient Self Assessment of Health Status: good. Tobacco use: Non-User Alcohol use: Non-User Illicit drug use: Non-User Current diet: well balanced diet, does consume adequate fluids and does not consume caffeine. Exercise Frequency: regularly. Depression/Suicide Screening: . During the past 2 weeks, the patient has not felt down, depressed or hopeless. During the past 2 weeks, the patient has not felt little interest or pleasure in doing things. Hearing Impairment: none. Cognitive Impairment: Cognitive impairment was observed. Bathing: needs assistance. Dressing: needs assistance. Walking: performs independently. Managing Finances: needs assistance. Shopping: needs assistance. Managing Medications: needs assistance. Housework / Basic Home Maintenance: needs assistance. Falls Risk Screening:. ARVIND has not fallen in the last 6 months. Home safety risk factors: none. Advance directives:. Advanced Care Planning discussed and documented advance care plan or surrogate decision maker documented in the medical record. Patient has no living will. Patient has no healthcare POA. Patient's End of Life Decisions: End of life decisions were reviewed with the patient. I agree to follow the patient's decisions. routine follow up / no concerns labs rev'd mom present HANDP eating better / drinking shakes GERD stable occasional constipation schizophrenia stable on rx no side effects refuses to see psych allergic rhinitis stable mental retardation Review of Systems Constitutional: not feeling poorly, no fever, no recent weight gain, no recent weight loss, no chills and not feeling tired. Eyes: no blurred vision and no diplopia. ENT: nasal discharge, but no hearing loss, no tinnitus, no earache, no sore throat, no hoarseness, no swollen glands in the neck and as noted in HPI. Cardiovascular: no chest pain, no tightness or heavy pressure, no shortness of breath, no palpitations and no lower extremity edema. Respiratory: no cough, not coughing up sputum and no wheezing that is consistent with asthma. Gastrointestinal: no change in bowel habits, no diarrhea, no constipation, no bloody stools, no nausea, no vomiting, no abdominal pain, no signs and symptoms of ulcer disease, no nathaly colored stools, no intolerance to fatty foods and as noted in HPI. Genitourinary: no urinary frequency, no dysuria, no hematuria, no burning sensation during urination, urinary stream is not smaller and urinary stream does not start and stop. Musculoskeletal: no arthralgias, no joint stiffness, no muscle weakness, no (more content not included)... Normal DATAllegro No Panel Informationon 10-25 N/A [employer] Work Phone: Never [employer] Work Phone: False [facility] Work Phone: 126 mg/dL [facility] Work Phone: 57.0 mg/dL [employer] Work Phone: 46 {years} [employer] Work Phone: Low Risk [employer] Work Phone: 1.18 % [employer] Work Phone: 1.14 % [employer] Work Phone: Comment on above: Age: 46Sex: MaleRace : WhiteSystolic Blood Pressure: 102Diastolic Blood Pressure: 64Total Cholesterol: 198HDL Cholesterol: 57.0LDL Cholesterol: 126Diabetes: NoSmoker: NeverHow Long Ago Patient Quit Smoking: N/AOn Hypertension Treatment: NoOn a Statin: NoOn Aspirin Therapy: NoRefine Current Risk Estimate Using Data from a Previous Visit: No 36 % [facility] Work Phone: CBC AND DIFFERENTIALon 07-26 % AUTOMATED IMMATURE GRAN 0.2 % Normal 0.0 - 0.9 [facility] Comment on above: Result Comment: Kathy ture Granulocyte Count (IG) includes promyelocytes, myelocytes and metamyelocytes but does not include bands. Percent differential counts (%) should be interpreted in the context of the absolute cell counts (cells/L). Performed By: #### C MP #### [address] [address] Basophils (Bld) [#/Vol] 0.01 10*3/uL Normal 0.00 - 0.10 [facility] Comment on above: Performed By: #### C MP #### [address] [address] Basophils/100 WBC (Bld) 0.2 % Normal 0.0 - 2.0 [facility] Comment on above: Performed By: #### C MP #### [address] [address] Eosinophils (Bld) [#/Vol] 0.05 10*3/uL Normal 0.00 - 0.70 [facility] Comment on above: Performed By: #### C MP #### [address] [address] Eosinophils/100 WBC (Bld) 1.1 % Normal 0.0 - 6.0 [facility] Comment on above: Performed By: #### C MP #### [address] [address] Erythrocyte distribution width (RBC) [Ratio] 13.0 % Normal 11.5 - 14.5 [facility] Comment on above: Performed By: #### C MP #### [address] [address] Hematocrit (Bld) [Volume fraction] 46.5 % Normal 41.0 - 52.0 [facility] Comment on above: Performed By: #### C MP #### [address] [address] Hemoglobin (Bld) [Mass/Vol] 14.6 g/dL Normal 13.5 - 17.5 [facility] Comment on above: Performed By: #### C MP #### [address] [address] Lymphocytes (Bld) [#/Vol] 0.98 10*3/uL Low 1.20 - 4.80 [facility] Comment on above: Performed By: #### C MP #### [address] [address] Lymphocytes/100 WBC (Bld) 22.0 % Normal 13.0 - 44.0 [facility] Comment on above: Performed By: #### C MP #### [address] [address] MCHC (RBC) [Mass/Vol] 31.4 g/dL Low 32.0 - 36.0 [facility] Comment on above: Performed By: #### C MP #### [address] [address] MCV (RBC) [Entitic vol] 89 fL Normal 80 - 100 [facility] Comment on above: Performed By: #### C MP #### [address] [address] Monocytes (Bld) [#/Vol] 0.33 10*3/uL Normal 0.10 - 1.00 [facility] Comment on above: Performed By: #### C MP #### [address] [address] Monocytes/100 WBC (Bld) 7.4 % Normal 2.0 - 10.0 [facility] Comment on above: Performed By: #### C MP #### [address] [address] Neutrophils (Bld) [#/Vol] 3.08 10*3/uL Normal 1.20 - 7.70 [facility] Comment on above: Performed By: #### C MP #### [address] [address] Neutrophils/100 WBC (Bld) 69.1 % Normal 40.0 - 80.0 [facility] Comment on above: Performed By: #### C MP #### [address] [address] Platelets (Bld) [#/Vol] 182 10*3/uL Normal 150 - 450 [facility] Comment on above: Performed By: #### C MP #### [address] [address] RBC 5.21 x10E12/L Normal 4.50 - 5.90 [facility] Comment on above: Performed By: #### C MP #### [address] [address] WBC (Bld) [#/Vol] 4.5 10*3/uL Normal 4.4 - 11.3 [facility] Comment on above: Performed By: #### C MP #### [address] [address] COMPREHENSIVE PANELon 2021 Albumin [Mass/Vol] 4.9 g/dL Normal 3.4 - 5.0 [facility] Comment on above: Performed By: #### C MP #### [address] [address] ALP [Catalytic activity/Vol] 79 U/L Normal 33 - 120 [facility] Comment on above: Performed By: #### C MP #### [address] [address] ALT [Catalytic activity/Vol] 22 U/L Normal 10 - 52 [facility] Comment on above: Result Comment: Flori ents treated with Sulfasalazine may generate falsely decreased results for ALT. Performed By: #### C MP #### [address] [address] Anion gap [Moles/Vol] 11 mmol/L Normal 10 - 20 [facility] Comment on above: Performed By: #### C MP #### [address] [address] AST [Catalytic activity/Vol] 19 U/L Normal 9 - 39 [facility] Comment on above: Performed By: #### C MP #### [address] [address] Bilirubin [Mass/Vol] 0.6 mg/dL Normal 0.0 - 1.[address] [facility] Comment on above: Performed By: #### C MP #### [address] [address] Calcium [Mass/Vol] 9.7 mg/dL Normal 8.6 - 10.3 [facility] Comment on above: Performed By: #### C MP #### [address] [address] Chloride [Moles/Vol] 102 mmol/L Normal 98 - [address] [facility] Comment on above: Performed By: #### C MP #### [address] [address] Creatinine [Mass/Vol] 0.80 mg/dL Normal 0.50 - 1.30 [facility] Comment on above: Performed By: #### C MP #### [address] [address] eGFR MALE >90 Normal >90 [facility] Comment on above: Result Comment: CALC ULATIONS OF ESTIMATED GFR ARE PERFORMED USING THE 2020 CKD-EPI STUDY REFIT EQUATION WITHOUT THE RACE VARIABLE FOR THE IDMS-TRACEABLE CREATININE METHODS. https://jasn.asnjournals.org/content//ASN.93395 24551 Performed By: #### C MP #### [address] [address] Glucose [Mass/Vol] 99 mg/dL Normal 74 - 99 [facility] Comment on above: Performed By: #### C MP #### [address] [address] HCO3 (Bld) [Moles/Vol] 27 mmol/L Normal 21 - 32 [facility] Comment on above: Performed By: #### C MP #### [address] [address] Potassium [Moles/Vol] 3.9 mmol/L Normal 3.5 - 5.3 [facility] Comment on above: Performed By: #### C MP #### [address] [address] Protein [Mass/Vol] 7.8 g/dL Normal 6.4 - 8.2 [facility] Comment on above: Performed By: #### C MP #### [address] [address] Sodium [Moles/Vol] 136 mmol/L Normal 136 - 145 [facility] Comment on above: Performed By: #### C MP #### [address] [address] Urea nitrogen [Mass/Vol] 17 mg/dL Normal 6 - 23 [facility] Comment on above: Performed By: #### C MP #### [address] [address] Complete Blood Count + Diffe rentialon 07-26-2021 Basophils/100 WBC (Bld) 0.2 % 0.0 - 2.0 [employer] Work Phone: Erythrocyte distribution width (RBC) [Ratio] 13.0 % See Below [employer] Work Phone: Comment on above: Reference Range: 11. 5 - 14.5 Hematocrit (Bld) [Volume fraction] 46.5 % See Below [employer] Work Phone: Comment on above: Reference Range: 41. 0 - 52.0 Hemoglobin (Bld) [Mass/Vol] 14.6 g/dL See Below [facility] Work Phone: Comment on above: Reference Range: 13. 5 - 17.5 Lymphocytes/100 WBC (Bld) 22.0 % See Below [employer] [facility] [employer] Work Phone: Comment on above: Reference Range: 13. 0 - 44.0 MCHC (RBC) [Mass/Vol] 31.4 g/dL below low threshold See Below [employer] [facility] [employer] Work Phone: Comment on above: Reference Range: 32. 0 - 36.0 MCV (RBC) [Entitic vol] 89 fL 80 - 100 [facility] Work Phone: Monocytes/100 WBC (Bld) 7.4 % 2.0 - 10.0 [employer] [facility] [employer] Work Phone: Neutrophils/100 WBC (Bld) 69.1 % See Below [employer] [facility] [employer] Work Phone: Comment on above: Reference Range: 40. 0 - 80.0 Platelets (Bld) [#/Vol] 182 10*3/uL 150 - 450 [employer] Work Phone: RBC (Bld) [#/Vol] 5.21 {x10E12/L} See Below [employer] Work Phone: Comment on above: Reference Range: 4.5 0 - 5.90 WBC (Bld) [#/Vol] 4.5 10*3/uL 4.4 - 11.3 [employer] Work Phone: Complete Blood Count + Differential 0.01 {x10E9/L} See Below [employer] Work Phone: Comment on above: Reference Range: 0.0 0 - 0.10 Complete Blood Count + Differential 0.05 {x10E9/L} See Below [employer] [facility] [employer] Work Phone: Comment on above: Reference Range: 0.0 0 - 0.70 Complete Blood Count + Differential 0.33 {x10E9/L} See Below [facility] Work Phone: Comment on above: Reference Range: 0.1 0 - 1.00 Complete Blood Count + Differential 0.98 {x10E9/L} below low threshold See Below [employer] Work Phone: Comment on above: Reference Range: 1.2 0 - 4.80 Complete Blood Count + Differential 3.08 {x10E9/L} See Below [employer] Work Phone: Comment on above: Reference Range: 1.2 0 - 7.70 Complete Blood Count + Differential 1.1 % 0.0 - 6.0 [facility] Work Phone: Complete Blood Count + Differential 0.2 % 0.0 - 0.9 [facility] Phone: Comment on above: Immature Granulocyte Count (IG) includes promyelocytes, myelocytes and metamyelocytes but does not include bands. Percent differential counts (%) should be interpreted in the context of the absolute cell counts (cells/L). Falls Risk Screeningon 07-26 Fall risk assessment a) No falls within the last year [facility] Phone: HEMOGLOBIN A1Con 07-26-2021 Glucose [Mass/Vol] 108 mg/dL Normal [facility] Comment on above: Performed By: #### C MP #### [address] [address] HbA1c (Bld) [Mass fraction] 5.4 % Normal [facility] Comment on above: Result Comment: Diag nosis of Diabetes-Adults Non-Diabetic: < or = 5.6% Increased risk for developing diabetes: 5.7-6.4% Diagnostic of diabetes: > or = 6.5% . Monitoring of Diabetes Age (y) Therapeutic Goal (%) Adults: >18 <7.0 Pediatrics: 13-18 <7.5 7-12 <8.0 0- 6 7.5-8.5 [employer]. Diabetes Care 33(S1), May 2009. Performed By: #### C MP #### [facility] [address] [place] [address] Hemoglobin A1Con 07-26-2021 Glucose [Mass/Vol] 108 mg/dL [employer] [facility] Work Phone: HbA1c (Bld) [Mass fraction] 5.4 % [facility] Work Phone: Comment on above: Diagnosis of Diabete s-Adults Non-Diabetic: < or = 5.6% Increased risk for developing diabetes: 5.7-6.4% Diagnostic of diabetes: > or = 6.5%. Monitoring of Diabetes Age (y) Therapeutic Goal (%) Adults: >18 <7.0 Pediatrics: 13-18 <7.5 7-12 <8.0 0- 6 7.5-8.5 [employer]. Diabetes Care 33(S1), May 2009. LIPID PANEL (CORONARY RISK 2 )on 07-26-2021 Cholesterol [Mass/Vol] 198 mg/dL Normal 0 - 199 [facility] Comment on above: Result Comment: . AGE DESIRABLE BORDERLINE HIGH HIGH 0-19 Y 0 - 169 170 - 199 >/= 200 20-24 Y 0 - 189 190 - 224 >/= 225 >24 Y 0 - 199 200 - 239 >/= 240 All ranges are based on fasting samples. Specific therapeutic targets will vary based on patient-specific cardiac risk. . Pediatric guidelines reference:Pediatrics 2011, 128(S5). Adult guidelines reference: NCEP ATPIII Guidelines, JIN 2001, 258:2486-97 . Venipuncture immediately after or during the administration of Metamizole may lead to falsely low results. Testing should be performed immediately prior to Metamizole dosing. Performed By: #### L IPID #### [facility] [address] [place] [address] Cholesterol in HDL [Mass/Vol] 57.0 mg/dL Normal [facility] Comment on above: Result Comment: . AGE VERY LOW LOW NORMAL HIGH 0-19 Y < 35 < 40 40-45 ---- 20-24 Y ---- < 40 >45 ---- >24 Y ---- < 40 40-60 >60 . Performed By: #### L IPID #### [address] [place] [address] Cholesterol in LDL [Mass/Vol] 126 mg/dL High 0 - 99 [facility] Comment on above: Result Comment: . NEAR BORD AGE DESIRABLE OPTIMAL HIGH HIGH VERY HIGH 0-19 Y 0 - 109 --- 110-129 >/= 130 ---- 20-24 Y 0 - 119 --- 120-159 >/= 160 ---- >24 Y 0 - 99 100-129 130-159 160-189 >/=190 . Performed By: #### L IPID #### [address] [address] Cholesterol in VLDL [Mass/Vol] 15 mg/dL Normal 0 - 40 [facility] Comment on above: Performed By: #### L IPID #### [address] [address] Cholesterol.total/Chol esterol in HDL [Mass ratio] 3.5 {ratio} Normal [facility] Comment on above: Result Comment: REF VALUES DESIRABLE < 3.4 HIGH RISK > 5.0 Performed By: #### L IPID #### [address] [address] Triglyceride [Mass/Vol] 76 mg/dL Normal 0 - 149 [facility] Comment on above: Result Comment: . AGE DESIRABLE BORDERLINE HIGH HIGH VERY HIGH 0 D-90 D 19 - 174 ---- ---- ---- 91 D- 9 Y 0 - 74 75 - 99 >/= 100 ---- 10-19 Y 0 - 89 90 - 129 >/= 130 ---- 20-24 Y 0 - 114 115 - 149 >/= 150 ---- >24 Y 0 - 149 150 - 199 200- 499 >/= 500 . Venipuncture immediately after or during the administration of Metamizole may lead to falsely low results. Testing should be performed immediately prior to Metamizole dosing. Performed By: #### L IPID #### [address] [address] Laboratory - Chemistry and C hemistry - challengeon 07-26-2021 Albumin BCP dye [Mass/Vol] 4.9 g/dL 3.4 - 5.0 [employer] [facility] [employer] Work Phone: ALP [Catalytic activity/Vol] 79 U/L 33 - 120 -[facility] Work Phone: ALT With P-5'-P [Catalytic activity/Vol] 22 U/L 10 - 52 [employer] Work Phone: Comment on above: Patients treated wit h Sulfasalazine may generate falsely decreased results for ALT. Anion gap [Moles/Vol] 11 mmol/L 10 - 20 [employer] Work Phone: AST With P-5'-P [Catalytic activity/Vol] 19 U/L 9 - 39 [employer] Work Phone: Bilirubin [Mass/Vol] 0.6 mg/dL 0.0 - 1.2 [employer] Work Phone: Calcium [Mass/Vol] 9.7 mg/dL 8.6 - 10.3 [employer] Work Phone: Chloride [Moles/Vol] 102 mmol/L 98 - 107 [employer] Work Phone: CO2 [Moles/Vol] 27 mmol/L 21 - 32 [facility] Work Phone: Creatinine [Mass/Vol] 0.80 mg/dL See Below [employer] Work Phone: Comment on above: Reference Range: 0.5 0 - 1.30 Glucose [Mass/Vol] 99 mg/dL 74 - 99 [employer] Work Phone: Potassium [Moles/Vol] 3.9 mmol/L 3.5 - 5.3 [employer] Work Phone: Protein [Mass/Vol] 7.8 g/dL 6.4 - 8.2 [employer] Work Phone: Sodium [Moles/Vol] 136 mmol/L 136 - 145 [employer] Work Phone: TSH Qn 0.42 m[IU]/L below low threshold See Below [employer] Work Phone: Comment on above: Reference Range: 0.4 4 - 3.98 TSH testing is performed using different testing methodology at [facility] than at other [facility]. Direct result comparisons should only be made within the same method. Urea nitrogen [Mass/Vol] 17 mg/dL 6 - 23 [facility] Work Phone: Lipid Panelon 07-26-2021 Cholesterol [Mass/Vol] 198 mg/dL 0 - 199 [employer] Work Phone: Comment on above: . AGE DESIRABLE BORD NORA HIGH HIGH 0-19 Y 0 - 169 170 - 199 >/= 200 20-24 Y 0 - 189 190 - 224 >/= 225 >24 Y 0 - 199 200 - 239 >/= 240 All ranges are based on fasting samples. Specific therapeutic targets will vary based on patient-specific cardiac risk.. Pediatric guidelines reference:Pediatrics 2011, 128(S5). Adult guidelines reference: NCEP ATPIII Guidelines, JIN 2001, 258:2486-97. Venipuncture immediately after or during the administration of Metamizole may lead to falsely low results. Testing should be performed immediately prior to Metamizole dosing. Cholesterol in HDL [Mass/Vol] 57.0 mg/dL [employer] Work Phone: Comment on above: . AGE VERY LOW LOW N ORMAL HIGH 0-19 Y < 35 < 40 40-45 ---- 20-24 Y ---- < 40 >45 ---- >24 Y ---- < 40 40-60 >60. Cholesterol in LDL [Mass/Vol] 126 mg/dL above high threshold 0 - 99 [facility] Work Phone: Comment on above: . NEAR BORD AGE GINA RABLE OPTIMAL HIGH HIGH VERY HIGH 0-19 Y 0 - 109 --- 110-129 >/= 130 ---- 20-24 Y 0 - 119 --- 120-159 >/= 160 ---- >24 Y 0 - 99 100-129 130-159 160-189 >/=190. Cholesterol.total/Chol esterol in HDL [Mass ratio] 3.5 {ratio} [employer] Work Phone: Comment on above: REF VALUESDESIRABLE < 3.4HIGH RISK > 5.0 Triglyceride [Mass/Vol] 76 mg/dL 0 - 149 [facility] Work Phone: Comment on above: . AGE DESIRABLE BORD NORA HIGH HIGH VERY HIGH 0 D-90 D 19 - 174 ---- ---- ----91 D- 9 Y 0 - 74 75 - 99 >/= 100 ---- 10-19 Y 0 - 89 90 - 129 >/= 130 ---- 20-24 Y 0 - 114 115 - 149 >/= 150 ---- >24 Y 0 - 149 150 - 199 200- 499 >/= 500. Venipuncture immediately after or during the administration of Metamizole may lead to falsely low results. Testing should be performed immediately prior to Metamizole dosing. Lipid Panel 15 mg/dL 0 - 40 [facility] Work Phone: No Panel Informationon 07-26 >90 >90 [facility] Work Phone: Comment on above: CALCULATIONS OF RASHIDA MATED GFR ARE PERFORMED USING THE 2020 CKD-EPI STUDY REFIT EQUATION WITHOUT THE RACE VARIABLE FOR THE IDMS-TRACEABLE CREATININE METHODS.https://jasn.asnjournals.org/content/early//A SN.6660147046 Office Visit (Internal Medic ine)on 07-26-2021 Follow-up visit Diagnoses/Problems Assessed GERD (gastroesophageal reflux disease) (530.81) (K21.9) Allergic rhinitis (477.9) (J30.9) Added by Problem List Migration; 2013-04-22 Schizophrenic disorder (295.90) (F20.9) Schizophrenic disorder Mental health disorder (300.9) (F99) Body mass index (BMI) of 19.9 or less in adult (Z68.1) Essential hypertriglyceridemia (272.1) (E78.1) Low TSH level (794.5) (R79.89) Vitamin D deficiency (268.9) (E55.9) Added by Problem List Migration; 2013-04-22 Hyperglycemia (790.29) (R73.9) Orders Allergic rhinitis Complete Blood Count + Differential; Status:Active; Requested for:26Jul2021; Perform:Lab Services - Lab To Draw (Blood Test); Due:24Oct2021;Ordered; For:Allergic rhinitis; Ordered By:Michelle Neely; Essential hypertriglyceridemia Comprehensive Metabolic Panel; Status:Active; Requested for:26Jul2021; Perform:Lab Services - Lab To Draw (Blood Test); Due:24Oct2021;Ordered; For:Essential hypertriglyceridemia; Ordered By:Michelle Neely; Lipid Panel; Status:Active; Requested for:26Jul2021; Perform:Lab Services - Lab To Draw (Blood Test); Due:24Oct2021;Ordered; For:Essential hypertriglyceridemia; Ordered By:Michelle Neely; Hyperglycemia Hemoglobin A1C; Status:Active; Requested for:26Jul2021; Perform:Lab Services - Lab To Draw (Blood Test); Due:24Oct2021;Ordered; For:Hyperglycemia; Ordered By:Michelle Neely; Low TSH level TSH WITH REFLEX TO FREE T4 IF ABNORMAL; Status:Active; Requested for:26Jul2021; Perform:Lab Services - Lab To Draw (Blood Test); Due:24Oct2021;Ordered; For:Low TSH level; Ordered By:Michelle Neely; Vitamin D deficiency Vitamin D 25-Hydroxy; Status:Active; Requested for:26Jul2021; Perform:Lab Services - Lab To Draw (Blood Test); Due:24Oct2021;Ordered; For:Vitamin D deficiency; Ordered By:Michelle Neely; Patient Discussion/Summary counselled continue meds as are follow weights check labs today follow up 3 months / medicare physical Chief Complaint follow up History of Present Illnessroutine follow up / no concerns mom present HANDP eating better / drinking shakes GERD stable occasional constipation schizophrenia stable on rx no side effects refuses to see psych allergic rhinitis stable mental retardation Review of Systems Constitutional: not feeling poorly, no fever, no recent weight gain, no recent weight loss, no chills and not feeling tired. Eyes: no blurred vision and no diplopia. ENT: nasal discharge, but no hearing loss, no tinnitus, no earache, no sore throat, no hoarseness, no swollen glands in the neck and as noted in HPI. Cardiovascular: no chest pain, no tightness or heavy pressure, no shortness of breath, no palpitations and no lower extremity edema. Respiratory: no cough, not coughing up sputum and no wheezing that is consistent with asthma. Gastrointestinal: no change in bowel habits, no diarrhea, no constipation, no bloody stools, no nausea, no vomiting, no abdominal pain, no signs and symptoms of ulcer disease, no nathaly colored stools, no intolerance to fatty foods and as noted in HPI. Genitourinary: no urinary frequency, no dysuria, no hematuria, no burning sensation during urination, urinary stream is not smaller and urinary stream does not start and stop. Musculoskeletal: no arthralgias, no joint stiffness, no muscle weakness, no back pain and no difficulty walking. Skin: no rashes, no change in skin color and pigmentation, no skin lesions and no skin lumps. Neurological: no headaches, no dizziness, no seizures, no tingling, no numbness, no signs and symptoms of stroke and no limb weakness. Psychiatric: no confusion, no memory lapses or loss, no depression, no sleep disturbances and as noted in HPI. Endocrine: no goiter, no thyroid disorder, no diabetes mellitus, no excessive thirst, no dry skin, no cold intolerance, no heat intolerance and no increased urinary frequency. Hematologic/Lymphatic: is not slow to heal, does not bleed easily, does not bruise easily, no thrombophlebitis, no anemia and no history of blood transfusion. All other systems have been reviewed and are negative for complaint. Active Problems Problems Abdominal pain (789.00) (R10.9) Acquired intellectual disability (319) (F79) Added by Problem List Migration; 2013-04-22 Acute sinusitis (461.9) (J01.90) Added by Problem List Migration; 2013-04-22 Allergic rhinitis (477.9) (J30.9) Added by Problem List Migration; 2013-04-22 Body mass index (BMI) of 19.9 or less in adult (Z68.1) Cough (786.2) (R05.9) Added by Problem List Migration; 2013-04-22 Eczema (692.9) (L30.9) Encounter for Medicare annual wellness exam (V70.0) (Z00.00) Essential hypertriglyceridemia (272.1) (E78.1) GERD (gastroesophageal reflux disease) (530.81) (K21.9) Hyperglycemia (790.29) (R73.9) Low TSH level (794.5) (R79.89) Malnutrition (263.9) (E46) Malnutrition Mental health disorder (300.9) (F99) Physical exam, routine (V (more content not included)... Normal [facility] T4 - Free Thyroxine, Serumon 07-26-2021 Free T4 [Mass/Vol] 1.10 ng/dL See Below [employer] Work Phone: Comment on above: Reference Range: 0.6 1 - 1.12 Thyroxine Free testing is performed using different testing methodology at [facility] than at other [facility]. Direct result comparisons should only be made within the same method.. Biotin can cause falsely elevated free T4 results. Patients taking a Biotin dose of up to 10 mg/day should refrain from taking Biotin for 24 hours before sample collection. Patient taking a Biotin dose of >10 mg/day should consult with their physician or the laboratory before the blood draw. THYROXINE,FREEon 07-26-2021 THYROXINE,FREE 1.10 ng/dL Normal 0.61 - 1.12 [facility] Comment on above: Result Comment: Thyr oxine Free testing is performed using different testing methodology at [facility] than at other [facility]. Direct result comparisons should only be made within the same method. . Biotin can cause falsely elevated free T4 results. Patients taking a Biotin dose of up to 10 mg/day should refrain from taking Biotin for 24 hours before sample collection. Patient taking a Biotin dose of >10 mg/day should consult with their physician or the laboratory before the blood draw. Performed By: #### T 4FRE #### [address] [place] [address] TSH WITH REFLEX TO FREE T4 I F ABNORMALon 07-26-2021 TSH Qn 0.42 m[IU]/L Low 0.44 - 3.98 [facility] Comment on above: Result Comment: TSH testing is performed using different testing methodology at [facility] than at other [facility]. Direct result comparisons should only be made within the same method. Performed By: #### C MP #### [address] [address] VITAMIN D, 25-HYDROXYon VITAMIN D, 25-HYDROXY 38 ng/mL Normal [facility] Comment on above: Result Comment: . DEFICIENCY: < 20 NG/ML INSUFFICIENCY: 20-29 NG/ML SUFFICIENCY: 30-100 NG/ML THIS ASSAY ACCURATELY QUANTIFIES THE SUM OF VITAMIN D3, 25-HYDROXY AND VIT D2,25-HYDROXY. Performed By: #### V TDOH #### [facility] [address] [place] [address] Vitamin D 25-Hydroxyon 07-26 25-hydroxyvitamin D3 [Mass/Vol] 38 ng/mL [facility] Work Phone: Comment on above: .DEFICIENCY: < 20 NG /MLINSUFFICIENCY: 20-29 NG/MLSUFFICIENCY: 30-100 NG/MLTHIS ASSAY ACCURATELY QUANTIFIES THE SUM OFVITAMIN D3, 25-HYDROXY AND VIT D2,25-HYDROXY. CBC AND DIFFERENTIALon 09-20 % AUTOMATED IMMATURE GRAN 0.2 % Normal 0.0 - 0.9 [facility] Comment on above: Result Comment: Kathy ture Granulocyte Count (IG) includes promyelocytes, myelocytes and metamyelocytes but does not include bands. Percent differential counts (%) should be interpreted in the context of the absolute cell counts (cells/L). Performed By: #### C BCDF #### [address] [address] Basophils (Bld) [#/Vol] 0.02 10*3/uL Normal 0.00 - 0.10 [facility] Comment on above: Performed By: #### C BCDF #### [address] [address] Basophils/100 WBC (Bld) 0.4 % Normal 0.0 - 2.0 [facility] Comment on above: Performed By: #### C BCDF #### [address] [address] Eosinophils (Bld) [#/Vol] 0.04 10*3/uL Normal 0.00 - 0.70 [facility] Comment on above: Performed By: #### C BCDF #### [address] [address] Eosinophils/100 WBC (Bld) 0.9 % Normal 0.0 - 6.0 [facility] Comment on above: Performed By: #### C BCDF #### [address] [address] Erythrocyte distribution width (RBC) [Ratio] 13.1 % Normal 11.5 - 14.5 [facility] Comment on above: Performed By: #### C BCDF #### [address] [address] Hematocrit (Bld) [Volume fraction] 46.0 % Normal 41.0 - 52.0 [facility] Comment on above: Performed By: #### C BCDF #### [address] [address] Hemoglobin (Bld) [Mass/Vol] 14.5 g/dL Normal 13.5 - 17.5 [facility] Comment on above: Performed By: #### C BCDF #### [address] [address] Lymphocytes (Bld) [#/Vol] 1.43 10*3/uL Normal 1.20 - 4.80 [facility] Comment on above: Performed By: #### C BCDF #### [address] [address] Lymphocytes/100 WBC (Bld) 30.5 % Normal 13.0 - 44.0 [facility] Comment on above: Performed By: #### C BCDF #### [address] [address] MCHC (RBC) [Mass/Vol] 31.5 g/dL Low 32.0 - 36.0 [facility] Comment on above: Performed By: #### C BCDF #### [address] [address] MCV (RBC) [Entitic vol] 91 fL Normal 80 - 100 [facility] Comment on above: Performed By: #### C BCDF #### [address] [address] Monocytes (Bld) [#/Vol] 0.45 10*3/uL Normal 0.10 - 1.00 [facility] Comment on above: Performed By: #### C BCDF #### [address] [address] Monocytes/100 WBC (Bld) 9.6 % Normal 2.0 - 10.0 [facility] Comment on above: Performed By: #### C BCDF #### [address] [address] Neutrophils (Bld) [#/Vol] 2.74 10*3/uL Normal 1.20 - 7.70 [facility] Comment on above: Performed By: #### C BCDF #### [address] [address] Neutrophils/100 WBC (Bld) 58.4 % Normal 40.0 - 80.0 [facility] Comment on above: Performed By: #### C BCDF #### [address] [address] Platelets (Bld) [#/Vol] 174 10*3/uL Normal 150 - 450 [facility] Comment on above: Performed By: #### C BCDF #### [address] [address] RBC 5.04 x10E12/L Normal 4.50 - 5.90 [facility] Comment on above: Performed By: #### C BCDF #### [address] [address] WBC (Bld) [#/Vol] 4.7 10*3/uL Normal 4.4 - 11.3 [facility] Comment on above: Performed By: #### C BCDF #### [address] [address] COMPREHENSIVE PANELon 2020 Albumin [Mass/Vol] 4.6 g/dL Normal 3.4 - 5.0 [facility] Comment on above: Performed By: #### C MP #### [address] [address] ALP [Catalytic activity/Vol] 75 U/L Normal 33 - 120 [facility] Comment on above: Performed By: #### C MP #### [address] [address] ALT [Catalytic activity/Vol] 39 U/L Normal 10 - 52 [facility] Comment on above: Result Comment: Flori ents treated with Sulfasalazine may generate falsely decreased results for ALT. Performed By: #### C MP #### [address] [address] Anion gap [Moles/Vol] 14 mmol/L Normal 10 - 20 [facility] Comment on above: Performed By: #### C MP #### [address] [address] AST [Catalytic activity/Vol] 30 U/L Normal 9 - 39 [facility] Comment on above: Performed By: #### C MP #### [address] [address] Bilirubin [Mass/Vol] 0.4 mg/dL Normal 0.0 - 1.[address] [facility] Comment on above: Performed By: #### C MP #### [address] [address] Calcium [Mass/Vol] 9.8 mg/dL Normal 8.6 - 10.3 [facility] Comment on above: Performed By: #### C MP #### [address] [address] Chloride [Moles/Vol] 104 mmol/L Normal 98 - [address] [facility] Comment on above: Performed By: #### C MP #### [address] [address] Creatinine [Mass/Vol] 0.72 mg/dL Normal 0.50 - 1.30 [facility] Comment on above: Performed By: #### C MP #### [address] [address] GFR- AM. >60 Normal >60 [facility] Comment on above: Result Comment: CALC ULATIONS OF ESTIMATED GFR ARE PERFORMED USING THE MDRD STUDY EQUATION FOR THE IDMS-TRACEABLE CREATININE METHODS. CLIN CHEM 2007;53:766-72 Performed By: #### C MP #### [address] [address] GFR-NON AM. >60 Normal >60 [facility] Comment on above: Performed By: #### C MP #### [address] [address] Glucose [Mass/Vol] 96 mg/dL Normal 74 - 99 [facility] Comment on above: Performed By: #### C MP #### [address] [address] HCO3 (Bld) [Moles/Vol] 25 mmol/L Normal 21 - 32 [facility] Comment on above: Performed By: #### C MP #### [address] [address] Potassium [Moles/Vol] 4.0 mmol/L Normal 3.5 - 5.3 [facility] Comment on above: Performed By: #### C MP #### [address] [address] Protein [Mass/Vol] 7.3 g/dL Normal 6.4 - 8.2 [facility] Comment on above: Performed By: #### C MP #### [address] [address] Sodium [Moles/Vol] 139 mmol/L Normal 136 - 145 [facility] Comment on above: Performed By: #### C MP #### [address] [address] Urea nitrogen [Mass/Vol] 17 mg/dL Normal 6 - 23 [facility] Comment on above: Performed By: #### C MP #### [address] [address] HEMOGLOBIN A1Con 09-20-2020 Glucose [Mass/Vol] 105 mg/dL Normal [facility] Comment on above: Performed By: #### H BA1E #### [facility] [address] [place] [address] HbA1c (Bld) [Mass fraction] 5.3 % Normal [facility] Comment on above: Result Comment: Diag nosis of Diabetes-Adults Non-Diabetic: < or = 5.6% Increased risk for developing diabetes: 5.7-6.4% Diagnostic of diabetes: > or = 6.5% . Monitoring of Diabetes Age (y) Therapeutic Goal (%) Adults: >18 <7.0 Pediatrics: 13-18 <7.5 7-12 <8.0 0- 6 7.5-8.5 [employer]. Diabetes Care 33(S1), May 2009. Performed By: #### H BA1E #### [facility] [address] [place] [address] LIPID PANEL (CORONARY RISK 2 )on 09-20-2020 Cholesterol [Mass/Vol] 206 mg/dL High 0 - 199 [facility] Comment on above: Result Comment: . AGE DESIRABLE BORDERLINE HIGH HIGH 0-19 Y 0 - 169 170 - 199 >/= 200 20-24 Y 0 - 189 190 - 224 >/= 225 >24 Y 0 - 199 200 - 239 >/= 240 All ranges are based on fasting samples. Specific therapeutic targets will vary based on patient-specific cardiac risk. . Pediatric guidelines reference:Pediatrics 2011, 128(S5). Adult guidelines reference: NCEP ATPIII Guidelines, JIN 2001, 258:2486-97 . Venipuncture immediately after or during the administration of Metamizole may lead to falsely low results. Testing should be performed immediately prior to Metamizole dosing. Performed By: #### L IPID #### [address] [place] [address] Cholesterol in HDL [Mass/Vol] 57.0 mg/dL Normal [facility] Comment on above: Result Comment: . AGE VERY LOW LOW NORMAL HIGH 0-19 Y < 35 < 40 40-45 ---- 20-24 Y ---- < 40 >45 ---- >24 Y ---- < 40 40-60 >60 . Performed By: #### L IPID #### [facility] [address] [place] [address] Cholesterol in LDL [Mass/Vol] 131 mg/dL High 0 - 99 [facility] Comment on above: Result Comment: . NEAR BORD AGE DESIRABLE OPTIMAL HIGH HIGH VERY HIGH 0-19 Y 0 - 109 --- 110-129 >/= 130 ---- 20-24 Y 0 - 119 --- 120-159 >/= 160 ---- >24 Y 0 - 99 100-129 130-159 160-189 >/=190 . Performed By: #### L IPID #### [address] [place] [address] Cholesterol in VLDL [Mass/Vol] 18 mg/dL Normal 0 - 40 [facility] Comment on above: Performed By: #### L IPID #### [address] [address] Cholesterol.total/Chol esterol in HDL [Mass ratio] 3.6 {ratio} Normal [facility] Comment on above: Result Comment: REF VALUES DESIRABLE < 3.4 HIGH RISK > 5.0 Performed By: #### L IPID #### [address] [address] Triglyceride [Mass/Vol] 91 mg/dL Normal 0 - 149 [facility] Comment on above: Result Comment: . AGE DESIRABLE BORDERLINE HIGH HIGH VERY HIGH 0 D-90 D 19 - 174 ---- ---- ---- 91 D- 9 Y 0 - 74 75 - 99 >/= 100 ---- 10-19 Y 0 - 89 90 - 129 >/= 130 ---- 20-24 Y 0 - 114 115 - 149 >/= 150 ---- >24 Y 0 - 149 150 - 199 200- 499 >/= 500 . Venipuncture immediately after or during the administration of Metamizole may lead to falsely low results. Testing should be performed immediately prior to Metamizole dosing. Performed By: #### L IPID #### [address] [address] TSH WITH REFLEX TO FREE T4 I F ABNORMALon 09-20-2020 TSH Qn 0.77 m[IU]/L Normal 0.44 - 3.98 [facility] Comment on above: Result Comment: TSH testing is performed using different testing methodology at [facility] than at other [facility]. Direct result comparisons should only be made within the same method. Performed By: #### T HYDS #### [address] [address] VITAMIN D, 25-HYDROXYon 05-0 VITAMIN D, 25-HYDROXY 34 ng/mL Normal [facility] Comment on above: Result Comment: . DEFICIENCY: < 20 NG/ML INSUFFICIENCY: 20-29 NG/ML SUFFICIENCY: 30-100 NG/ML THIS ASSAY ACCURATELY QUANTIFIES THE SUM OF VITAMIN D3, 25-HYDROXY AND VIT D2,25-HYDROXY. Performed By: #### V TDOH #### [facility] [address] [place] [address] Vital Signs Date Time Vital Sign Value Performing Clinician Facility 01-12-2025 10:11-0400 Body mass index (BMI) [Ratio] 22.81 kg/m2 Lorraine Dong PA-C Work Phone: [facility] 01-12-2025 10:11-0400 Body temperature 97.5 [degF] Lorraine WERNERC Work Phone: [facility] 01-12-2025 10:11-0400 Body weight 72.12 kg Lorarine WERNERC Work Phone: [facility] 01-12-2025 10:11-0400 Diastolic blood pressure 86 mm[Hg] Lorraine WERNERC Work Phone: [facility] 01-12-2025 10:11-0400 Heart rate 82 /min Lorraine WERNERC Work Phone: [facility] 01-12-2025 10:11-0400 Respiratory rate 16 /min Lorraine WERNERC Work Phone: [facility] 01-12-2025 10:11-0400 SaO2% (BldA) [Mass fraction] 96 % Lorraine WERNERC Work Phone: [facility] 01-12-2025 10:11-0400 Systolic blood pressure 122 mm[Hg] Lorraine WERNERC Work Phone: [facility] 12-09-2024 19:59-0400 Body temperature 98 [degF] Niraj LOWERYC Work Phone: [facility] 12-09-2024 19:59-0400 Diastolic blood pressure 89 mm[Hg] Niraj Andino CORPORATE BUYER-C Work Phone: 6(018)[phone] [place] [address] 12-09-2024 19:59-0400 Heart rate 79 /min Niraj Andino CORPORATE BUYER-C Work Phone: 3(570)[phone] [place] [address] 12-09-2024 19:59-0400 Respiratory rate 16 /min Niraj Andino CORPORATE BUYER-C Work Phone: 7(371)[phone] [place] [address] 12-09-2024 19:59-0400 SaO2% (BldA) [Mass fraction] 99 % Niraj Andino CORPORATE BUYER-C Work Phone: 5(002)465-644001 [place] [address] 12-09-2024 19:59-0400 Systolic blood pressure 128 mm[Hg] Niraj Andino CORPORATE BUYER-C Work Phone: 4(130)[phone] [place] [address] 12-09-2024 14:18-0400 Body height 185.42 cm Niraj Andino CORPORATE BUYER-C Work Phone: 9(888)[phone] [place] [address] 12-09-2024 14:18-0400 Body mass index (BMI) [Ratio] 21.3 kg/m2 Niraj Andino CORPORATE BUYER-C Work Phone: 8(459)[phone] [place] [address] 12-09-2024 14:18-0400 Body weight 73.34 kg Niraj Andino CORPORATE BUYER-C Work Phone: 2(449)[phone] [place] [address] 11-16-2024 14:19-0400 Body mass index (BMI) [Ratio] 23 kg/m2 Alize Swank FLOOR COVERING CONTRACTOR.UTILITY ENGINEER Work Phone: 4(612)437-558191 [place] [address] 11-16-2024 14:19-0400 Body temperature 97.2 [degF] Alize Swank FLOOR COVERING CONTRACTOR.UTILITY ENGINEER Work Phone: 8(472)385-685791 [place] [address] 11-16-2024 14:19-0400 Body weight 72.7 kg Alize Swank FLOOR COVERING CONTRACTOR.UTILITY ENGINEER Work Phone: [facility] 11-16-2024 14:19-0400 Diastolic blood pressure 72 mm[Hg] Alize Swank FLOOR COVERING CONTRACTOR.UTILITY ENGINEER Work Phone: [facility] 11-16-2024 14:19-0400 Heart rate 86 /min Alize Rupalank FLOOR COVERING CONTRACTOR.UTILITY ENGINEER Work Phone: [facility] 11-16-2024 14:19-0400 Respiratory rate 16 /min Alize Rupalank FLOOR COVERING CONTRACTOR.UTILITY ENGINEER Work Phone: [facility] 11-16-2024 14:19-0400 SaO2% (BldA) [Mass fraction] 97 % Alize Rupalank FLOOR COVERING CONTRACTOR.UTILITY ENGINEER Work Phone: [facility] 11-16-2024 14:19-0400 Systolic blood pressure 110 mm[Hg] Alize García FLOOR COVERING CONTRACTOR.UTILITY ENGINEER Work Phone: [facility] 10-02-2024 11:24-0400 Body mass index (BMI) [Ratio] 22.78 kg/m2 Niraj Andino APRN.UTILITY ENGINEER Work Phone: [facility] 10-02-2024 11:24-0400 Body weight 72 kg Niraj Andino APRN.UTILITY ENGINEER Work Phone: [facility] 10-02-2024 11:24-0400 Diastolic blood pressure 84 mm[Hg] Niraj Andino APRN.UTILITY ENGINEER Work Phone: [facility] 10-02-2024 11:24-0400 Heart rate 94 /min Niraj Andino APRN.UTILITY ENGINEER Work Phone: [facility] 10-02-2024 11:24-0400 SaO2% (BldA) [Mass fraction] 97 % Niraj Andino APRN.UTILITY ENGINEER Work Phone: [facility] 10-02-2024 11:24-0400 Systolic blood pressure 126 mm[Hg] Niraj Andino APRN.UTILITY ENGINEER Work Phone: [facility] 09-29-2024 14:14-0400 Body height 185.4 cm Sangita Celestin APRN-UTILITY ENGINEER Work Phone: [facility] 09-29-2024 14:14-0400 Body mass index (BMI) [Ratio] 21.11 kg/m2 Sangita Celestin FLOOR COVERING CONTRACTOR-UTILITY ENGINEER Work Phone: [facility] 09-29-2024 14:14-0400 Body weight 72.58 kg Sangita Celestin FLOOR COVERING CONTRACTOR-UTILITY ENGINEER Work Phone: [facility] 09-29-2024 14:14-0400 Heart rate 64 /min Sangita Celestin FLOOR COVERING CONTRACTOR-UTILITY ENGINEER Work Phone: [facility] 09-29-2024 14:14-0400 SaO2% (BldA) [Mass fraction] 98 % Sangita Celestin FLOOR COVERING CONTRACTOR-UTILITY ENGINEER Work Phone: [facility] 08-11-2024 15:54-0400 Body mass index (BMI) [Ratio] 22.78 kg/m2 Niraj Andino APRN.UTILITY ENGINEER Work Phone: [facility] 08-11-2024 15:54-0400 Body weight 72 kg Niraj Andino FLOOR COVERING CONTRACTOR.UTILITY ENGINEER Work Phone: [facility] 08-11-2024 15:54-0400 Diastolic blood pressure 82 mm[Hg] Niraj Andino APRN.UTILITY ENGINEER Work Phone: [facility] 08-11-2024 15:54-0400 Heart rate 92 /min Niraj Andino APRN.UTILITY ENGINEER Work Phone: [facility] 08-11-2024 15:54-0400 Systolic blood pressure 118 mm[Hg] Niraj Andino APRN.UTILITY ENGINEER Work Phone: [facility] 07-14-2024 15:10-0500 Body mass index (BMI) [Ratio] 22.67 kg/m2 Niraj Andino APRN.UTILITY ENGINEER Work Phone: [facility] 07-14-2024 15:10-0500 Body weight 71.67 kg Niraj Andino APRN.UTILITY ENGINEER Work Phone: [facility] 07-14-2024 15:10-0500 Diastolic blood pressure 80 mm[Hg] Niraj Andino APRN.UTILITY ENGINEER Work Phone: [facility] 07-14-2024 15:10-0500 Heart rate 94 /min Niraj Andino FLOOR COVERING CONTRACTOR.UTILITY ENGINEER Work Phone: [facility] 07-14-2024 15:10-0500 Systolic blood pressure 116 mm[Hg] Niraj Andino FLOOR COVERING CONTRACTOR.UTILITY ENGINEER Work Phone: [facility] 07-07-2024 16:38-0500 Body height 185.42 cm Niraj Andino CORPORATE BUYER-C Work Phone: [facility] 07-07-2024 16:38-0500 Body mass index (BMI) [Ratio] 20.9 kg/m2 Niraj Andino CORPORATE BUYER-C Work Phone: [facility] 07-07-2024 16:38-0500 Body temperature 99.9 [degF] Niraj Andino CORPORATE BUYER-C Work Phone: [facility] 07-07-2024 16:38-0500 Body weight 71.84 kg Niraj Andino CORPORATE BUYER-C Work Phone: [facility] 07-07-2024 16:38-0500 Diastolic blood pressure 89 mm[Hg] Niraj Andino CORPORATE BUYER-C Work Phone: [facility] 07-07-2024 16:38-0500 Heart rate 105 /min Niraj Andino CORPORATE BUYER-C Work Phone: [facility] 07-07-2024 16:38-0500 Respiratory rate 20 /min Niraj Andino CORPORATE BUYER-C Work Phone: [facility] 07-07-2024 16:38-0500 SaO2% (BldA) [Mass fraction] 97 % Niraj Andino CORPORATE BUYER-C Work Phone: [facility] 07-07-2024 16:38-0500 Systolic blood pressure 127 mm[Hg] Niraj Andino CORPORATE BUYER-C Work Phone: [facility] 07-01-2024 11:52-0500 Body mass index (BMI) [Ratio] 22.38 kg/m2 Donna Podlogar FLOOR COVERING CONTRACTOR.UTILITY ENGINEER Work Phone: [facility] 07-01-2024 11:52-0500 Body temperature 98.71 [degF] Donna Podlogar FLOOR COVERING CONTRACTOR.UTILITY ENGINEER Work Phone: [facility] 07-01-2024 11:52-0500 Body weight 70.76 kg Donna Podlogar FLOOR COVERING CONTRACTOR.UTILITY ENGINEER Work Phone: [facility] 07-01-2024 11:52-0500 Diastolic blood pressure 94 mm[Hg] Donna Podlogar FLOOR COVERING CONTRACTOR.UTILITY ENGINEER Work Phone: [facility] 07-01-2024 11:52-0500 Heart rate 89 /min Donna Podlogar FLOOR COVERING CONTRACTOR.UTILITY ENGINEER Work Phone: [facility] 07-01-2024 11:52-0500 Respiratory rate 18 /min Donna Podlogar FLOOR COVERING CONTRACTOR.UTILITY ENGINEER Work Phone: [facility] 07-01-2024 11:52-0500 SaO2% (BldA) [Mass fraction] 94 % Donna Podlogar FLOOR COVERING CONTRACTOR.UTILITY ENGINEER Work Phone: [facility] 07-01-2024 11:52-0500 Systolic blood pressure 122 mm[Hg] Donna Podlogar FLOOR COVERING CONTRACTOR.UTILITY ENGINEER Work Phone: [facility] 06-22-2024 16:19-0500 Body mass index (BMI) [Ratio] 22.96 kg/m2 Niraj Andino FLOOR COVERING CONTRACTOR.UTILITY ENGINEER Work Phone: [facility] 06-22-2024 16:19-0500 Body weight 72.58 kg Niraj Andino FLOOR COVERING CONTRACTOR.UTILITY ENGINEER Work Phone: [facility] 06-22-2024 16:19-0500 Diastolic blood pressure 91 mm[Hg] Niraj Andino FLOOR COVERING CONTRACTOR.UTILITY ENGINEER Work Phone: [facility] 06-22-2024 16:19-0500 Heart rate 84 /min Niraj Andino FLOOR COVERING CONTRACTOR.UTILITY ENGINEER Work Phone: [facility] 06-22-2024 16:19-0500 SaO2% (BldA) [Mass fraction] 98 % Niraj Andino APRN.UTILITY ENGINEER Work Phone: [facility] 06-22-2024 16:19-0500 Systolic blood pressure 133 mm[Hg] Niraj Andino APRN.UTILITY ENGINEER Work Phone: [facility] 04-21-2024 11:05-0500 Body mass index (BMI) [Ratio] 23.82 kg/m2 Niraj Andino APRN.UTILITY ENGINEER Work Phone: [facility] 04-21-2024 11:05-0500 Body weight 75.3 kg Niraj Andino APRN.UTILITY ENGINEER Work Phone: [facility] 04-21-2024 11:05-0500 Diastolic blood pressure 89 mm[Hg] Niraj Andino APRN.UTILITY ENGINEER Work Phone: [facility] 04-21-2024 11:05-0500 Heart rate 75 /min Niraj Andino APRN.UTILITY ENGINEER Work Phone: [facility] 04-21-2024 11:05-0500 Respiratory rate 14 /min Niraj Andino APRN.UTILITY ENGINEER Work Phone: [facility] 04-21-2024 11:05-0500 Systolic blood pressure 143 mm[Hg] Niraj Andino APRN.UTILITY ENGINEER Work Phone: [facility] 04-02-2024 14:44-0500 Body mass index (BMI) [Ratio] 23.24 kg/m2 Niraj Andino APRN.UTILITY ENGINEER Work Phone: [facility] 04-02-2024 14:44-0500 Body weight 73.48 kg Niraj Andino APRN.UTILITY ENGINEER Work Phone: [facility] 04-02-2024 14:44-0500 Diastolic blood pressure 87 mm[Hg] Niraj Andino APRN.UTILITY ENGINEER Work Phone: [facility] 04-02-2024 14:44-0500 Heart rate 99 /min Niraj Andino APRN.UTILITY ENGINEER Work Phone: [facility] 04-02-2024 14:44-0500 SaO2% (BldA) [Mass fraction] 97 % Niraj Andino APRN.UTILITY ENGINEER Work Phone: [facility] 04-02-2024 14:44-0500 Systolic blood pressure 137 mm[Hg] Niraj Andino APRN.UTILITY ENGINEER Work Phone: [facility] 03-13-2024 14:21-0400 Body mass index (BMI) [Ratio] 23.39 kg/m2 Niraj Andino APRN.UTILITY ENGINEER Work Phone: [facility] 03-13-2024 14:21-0400 Body temperature 98.49 [degF] Niraj Andino APRN.UTILITY ENGINEER Work Phone: [facility] 03-13-2024 14:21-0400 Body weight 73.94 kg Niraj Andino APRN.UTILITY ENGINEER Work Phone: [facility] 03-13-2024 14:21-0400 Diastolic blood pressure 77 mm[Hg] Niraj Andino APRN.UTILITY ENGINEER Work Phone: [facility] 03-13-2024 14:21-0400 Heart rate 88 /min Niraj Andino APRN.UTILITY ENGINEER Work Phone: [facility] 03-13-2024 14:21-0400 Respiratory rate 14 /min Niraj Andino APRN.UTILITY ENGINEER Work Phone: [facility] 03-13-2024 14:21-0400 Systolic blood pressure 122 mm[Hg] Niraj Andino APRN.UTILITY ENGINEER Work Phone: [facility] 02-20-2024 15:18-0400 Body mass index (BMI) [Ratio] 22.96 kg/m2 Niraj Andino APRN.UTILITY ENGINEER Work Phone: [facility] 02-20-2024 15:18-0400 Body temperature 98.49 [degF] Niraj Andino APRN.UTILITY ENGINEER Work Phone: [facility] 02-20-2024 15:18-0400 Body weight 72.58 kg Niraj Andino FLOOR COVERING CONTRACTOR.UTILITY ENGINEER Work Phone: [facility] 02-20-2024 15:18-0400 Diastolic blood pressure 93 mm[Hg] Niraj Andino FLOOR COVERING CONTRACTOR.UTILITY ENGINEER Work Phone: [facility] 02-20-2024 15:18-0400 Heart rate 90 /min Niraj Andino FLOOR COVERING CONTRACTOR.UTILITY ENGINEER Work Phone: [facility] 02-20-2024 15:18-0400 Systolic blood pressure 143 mm[Hg] Niraj Andino FLOOR COVERING CONTRACTOR.UTILITY ENGINEER Work Phone: [facility] 12-19-2023 15:07-0400 Body mass index (BMI) [Ratio] 21.81 kg/m2 Niraj Andino FLOOR COVERING CONTRACTOR.UTILITY ENGINEER Work Phone: [facility] 12-19-2023 15:07-0400 Body weight 68.95 kg Niraj Andino FLOOR COVERING CONTRACTOR.UTILITY ENGINEER Work Phone: [facility] 12-19-2023 15:07-0400 Diastolic blood pressure 79 mm[Hg] Niraj Andino FLOOR COVERING CONTRACTOR.UTILITY ENGINEER Work Phone: [facility] 12-19-2023 15:07-0400 Heart rate 72 /min Niraj Andino FLOOR COVERING CONTRACTOR.UTILITY ENGINEER Work Phone: [facility] 12-19-2023 15:07-0400 Respiratory rate 14 /min Niraj Andino FLOOR COVERING CONTRACTOR.UTILITY ENGINEER Work Phone: [facility] 12-19-2023 15:07-0400 Systolic blood pressure 119 mm[Hg] Niraj Andino FLOOR COVERING CONTRACTOR.UTILITY ENGINEER Work Phone: [facility] 11-28-2023 16:11-0400 Body mass index (BMI) [Ratio] 21.81 kg/m2 Niraj Andino FLOOR COVERING CONTRACTOR.UTILITY ENGINEER Work Phone: [facility] 11-28-2023 16:11-0400 Body weight 68.95 kg Niraj Andino FLOOR COVERING CONTRACTOR.UTILITY ENGINEER Work Phone: [facility] 11-28-2023 16:11-0400 Diastolic blood pressure 88 mm[Hg] Niraj Andino FLOOR COVERING CONTRACTOR.UTILITY ENGINEER Work Phone: [facility] 11-28-2023 16:11-0400 Heart rate 84 /min Niraj Andino FLOOR COVERING CONTRACTOR.UTILITY ENGINEER Work Phone: [facility] 11-28-2023 16:11-0400 Respiratory rate 14 /min Niraj Andino FLOOR COVERING CONTRACTOR.UTILITY ENGINEER Work Phone: [facility] 11-28-2023 16:11-0400 Systolic blood pressure 132 mm[Hg] Niraj Andino [employer] COVERING CONTRACTOR.UTILITY ENGINEER Work Phone: [facility] 09-30-2023 01:09-0400 Body temperature 98 [degF] [facility] 09-30-2023 01:09-0400 Diastolic blood pressure 79 mm[Hg] [facility] 09-30-2023 01:09-0400 Heart rate 69 /min [facility] 09-30-2023 01:09-0400 Respiratory rate 17 /min [facility] 09-30-2023 01:09-0400 SaO2% (BldA) [Mass fraction] 99 % [facility] 09-30-2023 01:09-0400 Systolic blood pressure 117 mm[Hg] [facility] [facility] 09-29-2023 21:08-0400 Body height 185.[address] [facility] 09-29-2023 21:08-0400 Body mass index (BMI) [Ratio] 18.6 kg/m2 [facility] 09-29-2023 21:08-0400 Body weight 64.[address] [facility] 09-02-2023 15:06-0400 Body temperature 97.81 [degF] Georgia Milton FLOOR COVERING CONTRACTOR.CASE MANAGEMENT ASSISTANT Work Phone: [facility] 09-02-2023 15:06-0400 Body weight 63.5 kg Georgia Suppdonya FLOOR COVERING CONTRACTOR.CASE MANAGEMENT ASSISTANT Work Phone: [facility] 09-02-2023 15:06-0400 Diastolic blood pressure 78 mm[Hg] Georgia Navinan FLOOR COVERING CONTRACTOR.CASE MANAGEMENT ASSISTANT Work Phone: [facility] 09-02-2023 15:06-0400 Heart rate 81 /min Georgia Suppan FLOOR COVERING CONTRACTOR.CASE MANAGEMENT ASSISTANT Work Phone: [facility] 09-02-2023 15:06-0400 Respiratory rate 16 /min Georgia Suppan FLOOR COVERING CONTRACTOR.CASE MANAGEMENT ASSISTANT Work Phone: [facility] 09-02-2023 15:06-0400 SaO2% (BldA) [Mass fraction] 99 % Georgia Suppan FLOOR COVERING CONTRACTOR.CASE MANAGEMENT ASSISTANT Work Phone: [facility] 09-02-2023 15:06-0400 Systolic blood pressure 120 mm[Hg] Georgia Suppan FLOOR COVERING CONTRACTOR.CASE MANAGEMENT ASSISTANT Work Phone: [facility] 07-25-2023 15:25-0500 Body weight 61.24 kg Niraj Carlioble FLOOR COVERING CONTRACTOR.UTILITY ENGINEER Work Phone: [facility] 07-25-2023 15:25-0500 Diastolic blood pressure 80 mm[Hg] Niraj Knoble FLOOR COVERING CONTRACTOR.UTILITY ENGINEER Work Phone: [facility] 07-25-2023 15:25-0500 Heart rate 84 /min Niraj Knoble FLOOR COVERING CONTRACTOR.UTILITY ENGINEER Work Phone: [facility] 07-25-2023 15:25-0500 Respiratory rate 14 /min Niraj Knoble FLOOR COVERING CONTRACTOR.UTILITY ENGINEER Work Phone: [facility] 07-25-2023 15:25-0500 Systolic blood pressure 120 mm[Hg] Niraj Knoble FLOOR COVERING CONTRACTOR.UTILITY ENGINEER Work Phone: [facility] 04-19-2023 08:49-0500 Body weight 59.42 kg Niraj Knoble FLOOR COVERING CONTRACTOR.UTILITY ENGINEER Work Phone: [facility] 04-19-2023 08:49-0500 Diastolic blood pressure 66 mm[Hg] Niraj Knoble FLOOR COVERING CONTRACTOR.UTILITY ENGINEER Work Phone: [facility] 04-19-2023 08:49-0500 Heart rate 80 /min Niraj Knoble FLOOR COVERING CONTRACTOR.UTILITY ENGINEER Work Phone: [facility] 04-19-2023 08:49-0500 Respiratory rate 14 /min Niraj Andino FLOOR COVERING CONTRACTOR.UTILITY ENGINEER Work Phone: [facility] 04-19-2023 08:49-0500 Systolic blood pressure 112 mm[Hg] Niraj Andino FLOOR COVERING CONTRACTOR.UTILITY ENGINEER Work Phone: [facility] 02-28-2023 17:16-0400 Body temperature 98.1 [degF] Niraj Andino FLOOR COVERING CONTRACTOR.UTILITY ENGINEER Work Phone: [facility] 02-28-2023 17:16-0400 Body weight 57.15 kg Niraj Andino FLOOR COVERING CONTRACTOR.UTILITY ENGINEER Work Phone: [facility] 02-28-2023 17:16-0400 Diastolic blood pressure 70 mm[Hg] Niraj Andino FLOOR COVERING CONTRACTOR.UTILITY ENGINEER Work Phone: [facility] 02-28-2023 17:16-0400 Heart rate 90 /min Niraj Andino FLOOR COVERING CONTRACTOR.UTILITY ENGINEER Work Phone: [facility] 02-28-2023 17:16-0400 Respiratory rate 16 /min Niraj Andino FLOOR COVERING CONTRACTOR.UTILITY ENGINEER Work Phone: [facility] 02-28-2023 17:16-0400 Systolic blood pressure 120 mm[Hg] Niraj Andino FLOOR COVERING CONTRACTOR.UTILITY ENGINEER Work Phone: [facility] 01-11-2023 16:02-0400 Diastolic blood pressure 74 mm[Hg] [facility] 01-11-2023 16:02-0400 Heart rate 72 /min [facility] 01-11-2023 16:02-0400 Respiratory rate 18 /min [facility] 01-11-2023 16:02-0400 SaO2% (BldA) [Mass fraction] 97 % [facility] 01-11-2023 16:02-0400 Systolic blood pressure 118 mm[Hg] [facility] 01-11-2023 13:52-0400 Body temperature 99.4 [degF] [facility] 01-11-2023 13:11-0400 Body height 185.[address] [facility] 01-11-2023 13:11-0400 Body mass index (BMI) [Ratio] 15.7 kg/m2 [facility] 01-11-2023 13:11-0400 Body weight 53.[address] [facility] 12-25-2022 15:20-0400 Body weight 54.88 kg Niraj Andino FLOOR COVERING CONTRACTOR.UTILITY ENGINEER Work Phone: [facility] 12-25-2022 15:20-0400 Diastolic blood pressure 70 mm[Hg] Niraj Andino FLOOR COVERING CONTRACTOR.UTILITY ENGINEER Work Phone: [facility] 12-25-2022 15:20-0400 Heart rate 92 /min Niraj Andino FLOOR COVERING CONTRACTOR.UTILITY ENGINEER Work Phone: [facility] 12-25-2022 15:20-0400 Respiratory rate 16 /min Niraj Andino FLOOR COVERING CONTRACTOR.UTILITY ENGINEER Work Phone: [facility] 12-25-2022 15:20-0400 Systolic blood pressure 120 mm[Hg] Niraj Andino FLOOR COVERING CONTRACTOR.UTILITY ENGINEER Work Phone: [facility] 12-23-2022 16:00-0400 Diastolic blood pressure 85 mm[Hg] [facility] 12-23-2022 16:00-0400 Heart rate 65 /min [facility] 12-23-2022 16:00-0400 Respiratory rate 16 /min [facility] 12-23-2022 16:00-0400 SaO2% (BldA) [Mass fraction] 98 % [facility] 12-23-2022 16:00-0400 Systolic blood pressure 123 mm[Hg] [facility] 12-23-2022 13:21-0400 Body height 185.[address] [facility] 12-23-2022 13:21-0400 Body mass index (BMI) [Ratio] 16.2 kg/m2 [facility] 12-23-2022 13:21-0400 Body temperature 97.1 [degF] [facility] 12-23-2022 13:21-04[address] Body weight 55[address] [facility] 12-06-2022 14:41-0400 Respiratory rate 16 /min [facility] 12-06-2022 13:09-0400 Body height 185.[address] [facility] 12-06-2022 13:09-0400 Body mass index (BMI) [Ratio] 15.5 kg/m2 [facility] 12-06-2022 13:09-0400 Body temperature 97.4 [degF] [facility] 12-06-2022 13:090400 Body weight 53.[address] [facility] 12-06-2022 13:09-0400 Diastolic blood pressure 94 mm[Hg] [facility] 12-06-2022 13:09-0400 Heart rate 95 /min [facility] 12-06-2022 13:09-0400 SaO2% (BldA) [Mass fraction] 98 % [facility] 12-06-2022 13:09-0400 Systolic blood pressure 130 mm[Hg] [facility] 12-06-2022 11:12-0400 Body weight 52.62 kg Niraj Andino APRN.UTILITY ENGINEER Work Phone: [facility] 12-06-2022 11:12-0400 Diastolic blood pressure 78 mm[Hg] Niraj Andino APRN.UTILITY ENGINEER Work Phone: [facility] 12-06-2022 11:12-0400 Heart rate 90 /min Niraj Andino APRN.UTILITY ENGINEER Work Phone: [facility] 12-06-2022 11:12-0400 Respiratory rate 16 /min Niraj Andino APRN.UTILITY ENGINEER Work Phone: [facility] 12-06-2022 11:12-0400 Systolic blood pressure 112 mm[Hg] Niraj Andino APRN.UTILITY ENGINEER Work Phone: [facility] 11-01-2022 16:16-0400 Body height 177.8 cm Niraj Andino APRN.UTILITY ENGINEER Work Phone: [facility] 11-01-2022 16:16-0400 Body weight 49.9 kg Niraj Andino APRN.UTILITY ENGINEER Work Phone: [facility] 11-01-2022 16:16-0400 Diastolic blood pressure 62 mm[Hg] Niraj Andino FLOOR COVERING CONTRACTOR.UTILITY ENGINEER Work Phone: [facility] 11-01-2022 16:16-0400 Heart rate 72 /min Niraj Andino FLOOR COVERING CONTRACTOR.UTILITY ENGINEER Work Phone: [facility] 11-01-2022 16:16-0400 Respiratory rate 18 /min Niraj Andino FLOOR COVERING CONTRACTOR.UTILITY ENGINEER Work Phone: [facility] 11-01-2022 16:16-0400 SaO2% (BldA) [Mass fraction] 98 % Niraj Andino FLOOR COVERING CONTRACTOR.UTILITY ENGINEER Work Phone: [facility] 11-01-2022 16:16-0400 Systolic blood pressure 120 mm[Hg] Niraj Andino FLOOR COVERING CONTRACTOR.UTILITY ENGINEER Work Phone: [facility] 10-22-2022 12:01-0400 Body mass index (BMI) [Ratio] 15.68 kg/m2 Michelle Neely MD Work Phone: 8(461)650-525943 [place] [address] 10-22-2022 12:01-0400 Body weight 50.98 kg Michelle Neely MD Work Phone: 5(067)067-972543 [place] [address] 10-22-2022 12:01-0400 Diastolic blood pressure 76 mm[Hg] Michelle Neely MD Work Phone: 0(224)287-962943 [place] [address] 10-22-2022 12:01-0400 Heart rate 64 /min Michelle Neely MD Work Phone: 0(613)[phone] [place] [address] 10-22-2022 12:01-0400 SaO2% (BldA) [Mass fraction] 98 % Michelle Neely MD Work Phone: 6(551)[phone] [place] [address] 10-22-2022 12:01-0400 Systolic blood pressure 116 mm[Hg] Michelle Neely MD Work Phone: 1(200)963-930200 [address] 07-23-2022 09:07-0500 Body mass index (BMI) [Ratio] 16.88 kg/m2 Michelle Neely MD Work Phone: [facility] 07-23-2022 09:07-0500 Body weight 54.88 kg Michelle Neely MD Work Phone: [facility] 07-23-2022 09:07-0500 Diastolic blood pressure 72 mm[Hg] Michelle Neely MD Work Phone: [facility] 07-23-2022 09:07-0500 Heart rate 72 /min Michelle Neely MD Work Phone: [facility] 07-23-2022 09:07-0500 SaO2% (BldA) [Mass fraction] 99 % Michelle Neely MD Work Phone: [facility] 07-23-2022 09:07-0500 Systolic blood pressure 112 mm[Hg] Michelle Neely MD Work Phone: [facility] 04-24-2022 08:23-0500 Body mass index (BMI) [Ratio] 17.21 kg/m2 Michelle R Keenan Work Phone: [facility] Work Phone: 04-24-2022 08:23-0500 Body surface area Derived from formula 1.72 m2 Michelle R Keenan Work Phone: [facility] Work Phone: 04-24-2022 08:23-0500 Body weight 55.97 kg Michelle R Keenan Work Phone: [facility] Work Phone: 04-24-2022 08:23-0500 Diastolic blood pressure 64 mm[Hg] Michelle R Keenan Work Phone: [facility] Work Phone: 04-24-2022 08:23-0500 Heart rate 64 /min Michelle R Keenan Work Phone: [facility] Work Phone: 04-24-2022 08:23-0500 SaO2% (BldA) [Mass fraction] 100 % Michelle R Keenan Work Phone: [facility] Work Phone: 04-24-2022 08:23-0500 Systolic blood pressure 116 mm[Hg] Michelle R Keenan Work Phone: [facility] Work Phone: 01-23-2022 08:32-0400 Body mass index (BMI) [Ratio] 17.19 kg/m2 Michelle R Keenan Work Phone: [facility] Work Phone: 01-23-2022 08:32-0400 Body surface area Derived from formula 1.72 m2 Michelle R Keenan Work Phone: [facility] Work Phone: 01-23-2022 08:32-0400 Body weight 55.91 kg Michelle R Keenan Work Phone: [facility] Work Phone: 01-23-2022 08:32-0400 Diastolic blood pressure 68 mm[Hg] Michelle R Keenan Work Phone: [facility] Work Phone: 01-23-2022 08:32-0400 Heart rate 64 /min Michelle R Keenan Work Phone: [facility] Work Phone: 01-23-2022 08:32-0400 SaO2% (BldA) [Mass fraction] 97 % Michelle R Keenan Work Phone: [facility] Work Phone: 01-23-2022 08:32-0400 Systolic blood pressure 108 mm[Hg] Michelle R Keenan Work Phone: [facility] Work Phone: 10-25-2021 09:28-0400 Systolic blood pressure 102 mm[Hg] Michelle R Keenan Work Phone: [facility] Work Phone: 10-25-2021 09:00-0400 Body mass index (BMI) [Ratio] 16.77 kg/m2 Michelle R Keenan Work Phone: [facility] Work Phone: 10-25-2021 09:00-0400 Body surface area Derived from formula 1.7 m2 Michelle R Keenan Work Phone: [facility] Work Phone: 10-25-2021 09:00-0400 Body weight 54.55 kg Michelle R Keenan Work Phone: [facility] Work Phone: 10-25-2021 09:00-0400 Diastolic blood pressure 64 mm[Hg] Michelle R Keenan Work Phone: [facility] Work Phone: 10-25-2021 09:00-0400 Heart rate 76 /min Michelle R Keenan Work Phone: [facility] Work Phone: 10-25-2021 09:00-0400 SaO2% (BldA) [Mass fraction] 98 % Michelle R Keenan Work Phone: [facility] Work Phone: 07-26-2021 08:24-0500 Body mass index (BMI) [Ratio] 16.75 kg/m2 Michelle R Keenan Work Phone: [facility] Work Phone: 07-26-2021 08:24-0500 Body surface area Derived from formula 1.7 m2 Michelle R Keenan Work Phone: [facility] Work Phone: 07-26-2021 08:24-0500 Body weight 54.49 kg Michelle R Keenan Work Phone: [facility] Work Phone: 07-26-2021 08:24-0500 Diastolic blood pressure 68 mm[Hg] Michelle R Keenan Work Phone: [facility] Work Phone: 07-26-2021 08:24-0500 Heart rate 87 /min Michelle R Keenan Work Phone: [facility] Work Phone: 07-26-2021 08:24-0500 SaO2% (BldA) [Mass fraction] 97 % Michelle R Keenan Work Phone: [facility] Work Phone: 07-26-2021 08:24-0500 Systolic blood pressure 108 mm[Hg] Michelle R Keenan Work Phone: [facility] Work Phone: 04-03-2019 12:32-0500 BMI (Body Mass Index) 17.57 kg/m2 Michelle Keenan [facility] Work Phone: 04-03-2019 12:32-0500 Body weight 57.15 kg Michelle Keenan [facility] Work Phone: 04-03-2019 12:32-0500 BP Diastolic 66 mm[Hg] Michelle Keenan [facility] Work Phone: 04-03-2019 12:32-0500 BP Systolic 110 mm[Hg] Michelle Keenan [facility] Work Phone: 04-03-2019 12:32-0500 BSA (Body Surface Area) 1.73 m2 Michelle Keenan [facility] Work Phone: 04-03-2019 12:32-0500 Height 180.34 cm Michelle Keenan [facility] Work Phone: 04-03-2019 12:32-0500 Pulse (Heart Rate) 75 /min Michelle Neely [facility] Work Phone: 04-03-2019 12:32-0500 Pulse Oximetry 98 % Michelle Keenan [facility] Work Phone: Encounters Encounter Date Encounter Type Care Provider Facility Start: 01-28-2025 ambulatory Niraj Andino Facilit y:[facility] Start: 01-22-2025 End: 01-22-2025 Patient encounter procedure Janett Perdomo OD Work Phone: Ophthalmology Comment on above: Alternating esotropi a (Primary Dx); Irregular astigmatism of both eyes; Corneal thinning, bilateral; Autism ([facility]) Start: 01-22-2025 End: 01-22-2025 ambulatory NIRAJ ANDINO Facility:[facility] Start: 01-15-2025 End: 01-15-2025 Follow-up encounter Lorraine Dong PA-C Work Phone: [facility] [place] Comment on above: Results Start: 01-14-2025 End: 01-15-2025 Telephone encounter Niraj Andino APRN.CNP Work Phone: [facility] [place] Comment on above: Results Start: 01-12-2025 End: 01-12-2025 ambulatory NIRAJ ANDINO Facility:[facility] Start: 01-12-2025 End: 01-12-2025 Office outpatient visit 15 minutes Lorraine Dong PA-C Work Phone: [facility] [place] Comment on above: Lower abdominal pain (Primary Dx); Autism spectrum disorder without accompanying intellectual impairment, requiring support (level 1) ([facility]) Start: 12-18-2024 End: 12-19-2024 Emergency department patient visit [facility] Facility:[facility] Start: 12-18-2024 Physical examination [facility] Start: 12-18-2024 End: 12-18-2024 ambulatory Jacki Szymanski RN NURSE BOBBIN COLLECTOR Comment on above: Chest Pain Start: 12-09-2024 End: 12-09-2024 Emergency department patient visit Niraj LOWERYC Work Phone: -Emergency Department Work Phone: Start: 11-16-2024 End: 11-16-2024 Patient encounter procedure Alize Villa FLOOR COVERING CONTRACTOR.UTILITY ENGINEER Work Phone: [facility] Comment on above: Otalgia of left ear (Primary Dx) Start: 11-16-2024 End: 11-16-2024 ambulatory ALIZE VILLA Facility:[facility] Start: 11-03-2024 End: 11-03-2024 ambulatory Niraj Andino CORPORATE BUYER-C Work Phone: [facility] Work Phone: Start: 11-03-2024 End: 11-03-2024 Patient encounter procedure Abdias Orozco PA -Laboratory Work Phone: Start: 11-03-2024 End: 11-03-2024 ambulatory Abdias Mcmillans Facility:[facility] Start: 10-28-2024 End: 10-28-2024 Patient encounter procedure Sariah CRUZ -[facility] Work Phone: Start: 10-28-2024 End: 10-28-2024 ambulatory Niraj Andino CORPORATE BUYER-C Work Phone: [facility] Work Phone: Start: 10-02-2024 End: 10-02-2024 Patient encounter procedure Niraj Andino FLOOR COVERING CONTRACTOR.UTILITY ENGINEER Work Phone: [facility] Comment on above: Hearing aid consulta tion (Primary Dx); Seasonal allergies Start: 10-02-2024 End: 10-02-2024 ambulatory NIRAJ ANDINO Facility:[facility] Start: 10-01-2024 End: 10-01-2024 Follow-up encounter Niraj Andino FLOOR COVERING CONTRACTOR.UTILITY ENGINEER Work Phone: [facility] Start: 09-30-2024 ambulatory NIRAJ ANDINO Facilit y:[facility] Start: 09-30-2024 End: 09-30-2024 Subsequent hospital visit by physician [facility] Work Phone: Radiology Comment on above: Elevated alkaline ph osphatase level [R74.8] Start: 09-29-2024 End: 09-29-2024 Office outpatient new 45 minutes Sangita Celestin APRN-UTILITY ENGINEER Work Phone: [facility] [place] Comment on above: 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); Sensorineural hearing loss (SNHL) of left ear, unspecified hearing status on contralateral side; Developmental delay Start: 09-29-2024 End: 09-29-2024 Patient encounter procedure Riley Clark AuD Work Phone: [facility] [place] Comment on above: Hearing loss of left ear, unspecified hearing loss type (Primary Dx) Start: 09-29-2024 ambulatory SANGITA CELESTIN Facili ty:[facility] Start: 09-18-2024 End: 09-18-2024 Telephone encounter Niraj Andino APRN.CNP Work Phone: [facility] [place] Comment on above: Medication Question; Appointment Start: 09-17-2024 End: 09-17-2024 Follow-up encounter Niraj Andino APRN.CNP Work Phone: [facility] [place] Start: 09-14-2024 End: 09-14-2024 ambulatory NIRAJ ANDINO Facility:[facility] Start: 08-27-2024 End: 08-28-2024 Telephone encounter Niraj Andino APRN.CNP Work Phone: [facility] [place] Comment on above: Orders Results Start: 08-27-2024 End: 08-27-2024 Patient encounter procedure Jory Kennedy Work Phone: [facility] [place] Comment on above: Conductive hearing l oss, unspecified laterality (Primary Dx) Start: 08-27-2024 ambulatory JORY ANDERSON Facilit y:[facility] Start: 08-26-2024 End: 08-26-2024 Patient encounter procedure Sariah Mcdonald ND -[facility] Work Phone: Start: 08-26-2024 End: 08-26-2024 ambulatory Sariah Mcdonald Facility:[facility] Start: 08-25-2024 End: 08-25-2024 ambulatory NIRAJ ANDINO Facility:[facility] Start: 08-14-2024 End: 08-21-2024 Telephone encounter Niraj Andino APRN.CNP Work Phone: [facility] [place] Comment on above: Results; prior autho rization (Liquid Atorvastatin) Start: 08-11-2024 End: 08-11-2024 ambulatory NIRAJ ANDINO Facility:[facility] Start: 08-11-2024 Encounter for genera l adult medical examination without abnormal findings NIRAJ ANDINO [facility] Start: 08-11-2024 End: 08-11-2024 Patient encounter procedure Niraj Andino APRN.CNP Work Phone: [facility] [place] Comment on above: Wellness examination (Primary Dx); Vitamin D deficiency; Medication management; Encounter for lipid screening for cardiovascular disease; Schizophrenia, unspecified type (HCC); GERD without esophagitis; Non-verbal learning disorder; Encounter for immunization Start: 08-11-2024 End: 08-11-2024 Patient encounter status Niraj Andino APRN.CNP Work Phone: [facility] Start: 07-14-2024 End: 07-14-2024 Patient encounter procedure Niraj Andino APRN.CNP Work Phone: [facility] [place] Comment on above: Post-viral cough syn drome (Primary Dx) Start: 07-14-2024 End: 07-14-2024 ambulatory NIRAJ ANDINO Facility:[facility] Start: 07-07-2024 End: 07-07-2024 Emergency department patient visit ED PHYSICIAN PROVIDER -Emergency Department Work Phone: Start: 07-07-2024 End: 07-07-2024 Telephone encounter Niraj Andino APRN.CNP Work Phone: [facility] [place] Comment on above: Patient Update Start: 07-01-2024 End: 07-01-2024 Follow-up encounter Bethany Millan LPN Family Medicine [facility] Start: 07-01-2024 End: 07-01-2024 Subsequent hospital visit by physician [facility] [place] Work Phone: Radiology Comment on above: Acute cough [R05.1] Start: 07-01-2024 End: 07-01-2024 ambulatory NIRAJ ANDINO Facility:[facility] Start: 07-01-2024 End: 07-01-2024 Patient encounter procedure Donna Aponte APRN.UTILITY ENGINEER Work Phone: [facility] [place] Comment on above: Acute cough (Primary Dx) Start: 06-30-2024 End: 06-30-2024 Telephone encounter Niraj Andino FLOOR COVERING CONTRACTOR.UTILITY ENGINEER [facility] Comment on above: Requesting Rx for a shower chair Start: 06-23-2024 End: 06-23-2024 Telephone encounter Niraj Andino APRN.UTILITY ENGINEER Work Phone: [facility] [place] Comment on above: Results Start: 06-22-2024 End: 06-22-2024 Patient encounter procedure Niraj Andino APRN.UTILITY ENGINEER Work Phone: [facility] Comment on above: URI, acute (Primary Dx) Start: 06-22-2024 End: 06-22-2024 ambulatory NIRAJ ANDINO Facility:[facility] Start: 06-18-2024 End: 06-18-2024 ambulatory Niraj Andino Facility:[facility] Start: 04-21-2024 End: 05-18-2024 Telephone encounter Niraj Andino APRN.UTILITY ENGINEER Work Phone: [facility] [place] Start: 04-21-2024 End: 04-21-2024 ambulatory NIRAJ ANDINO Facility:[facility] Start: 04-21-2024 End: 04-21-2024 Patient encounter procedure Niraj Andino FLOOR COVERING CONTRACTOR.UTILITY ENGINEER Work Phone: [facility] [place] Comment on above: Bacterial conjunctiv itis (Primary Dx) Start: 04-14-2024 End: 04-14-2024 ambulatory Sariah Mcdonald Facility:[facility] Start: 04-03-2024 End: 04-03-2024 Telephone encounter Niraj Andino FLOOR COVERING CONTRACTOR.UTILITY ENGINEER Work Phone: [facility] Comment on above: Results Start: 04-02-2024 End: 04-02-2024 Subsequent hospital visit by physician [facility] [place] Work Phone: Radiology Comment on above: Acute cough [R05.1] Start: 04-02-2024 End: 04-02-2024 ambulatory NIRAJ ANDINO Facility:[facility] Start: 04-02-2024 End: 04-02-2024 Patient encounter procedure Niraj Andino APRN.UTILITY ENGINEER Work Phone: [facility] [place] Comment on above: Acute cough (Primary Dx); Medication management; Vitamin D deficiency Start: 04-02-2024 End: 04-02-2024 Telephone encounter Niraj Andino APRN.UTILITY ENGINEER Work Phone: [facility] [place] Comment on above: Results Start: 03-24-2024 End: 03-24-2024 ambulatory Chelita Smart MA [facility] Start: 03-24-2024 End: 03-24-2024 Patient encounter procedure Chelita Smart MA [facility] [place] Comment on above: Population Health Na vigation Outreach ([facility] ) Start: 03-17-2024 End: 03-17-2024 Telephone encounter Niraj Andino APRN.UTILITY ENGINEER Work Phone: [facility] [place] Comment on above: Patient Update Start: 03-16-2024 End: 03-17-2024 Telephone encounter Niraj Andino APRN.CNP Work Phone: [facility] [place] Comment on above: Orders Start: 03-13-2024 End: 03-13-2024 Patient encounter procedure Niraj Andino APRN.UTILITY ENGINEER Work Phone: [facility] [place] Comment on above: Acute otitis externa of left ear, unspecified type (Primary Dx); Impacted cerumen of left ear; Impaired development of adult Start: 03-13-2024 End: 03-13-2024 ambulatory NIRAJ ANDINO Facility:[facility] Start: 03-13-2024 End: 03-13-2024 Telephone encounter Niraj Andino APRN.UTILITY ENGINEER Work Phone: [facility] [place] Comment on above: Appointment; Patient Update Start: 03-03-2024 End: 03-03-2024 ambulatory NIRAJ ANDINO Facility:[facility] Start: 03-03-2024 End: 03-03-2024 Nursing evaluation of patient and report Mi Nurse Work Phone: [facility] [place] Comment on above: Encounter for immuni zation Start: 02-27-2024 End: 02-28-2024 Telephone encounter Niraj Andino APRN.UTILITY ENGINEER Work Phone: [facility] [place] Comment on above: Orders Start: 02-24-2024 End: 02-26-2024 Telephone encounter Niraj Andino APRN.UTILITY ENGINEER Work Phone: [facility] [place] Comment on above: Results Start: 02-21-2024 End: 02-21-2024 Telephone encounter Niraj Andino APRN.UTILITY ENGINEER Work Phone: [facility] [place] Comment on above: Results Start: 02-20-2024 End: 02-20-2024 Patient encounter procedure Niraj Andino APRN.UTILITY ENGINEER Work Phone: [facility] Comment on above: Cough in adult (Prim sha Dx); Sore throat; Decreased appetite; GERD without esophagitis; Measles, mumps, rubella (MMR) vaccination status unknown; Hepatitis vaccination status unknown; Unknown varicella vaccination status; Pidgytuyxl-qyuunrrub-acyqgxl (DPT) vaccination status unknown Start: 02-20-2024 End: 02-20-2024 ambulatory NIRAJ ANDINO Facility:[facility] Start: 12-24-2023 Telephone encounter Niraj quiñones APRN.UTILITY ENGINEER Work Phone: [facility] Comment on above: Results Start: 12-19-2023 End: 12-19-2023 Subsequent hospital visit by physician [facility] [place] Work Phone: Radiology Comment on above: Bony prominence [M89 .8X9] Start: 12-19-2023 End: 12-19-2023 Patient encounter procedure Niraj Andino APRN.UTILITY ENGINEER Work Phone: [facility] [place] Comment on above: Agitation (Primary D x); Anal inflammation; Schizophrenia, unspecified type (HCC); Non-verbal learning disorder; Bony prominence Start: 12-13-2023 ambulatory Niraj patel APRN.UTILITY ENGINEER Work Phone: [facility] Start: 12-13-2023 Telephone encounter Niraj quiñones APRN.UTILITY ENGINEER Work Phone: [facility] Comment on above: Possible chest or ab d pain Erroneous encounter- disregard Start: 11-29-2023 Telephone encounter Niraj quiñones APRN.UTILITY ENGINEER Work Phone: [facility] Comment on above: Medication Problem Start: 11-28-2023 End: 11-28-2023 Patient encounter procedure Niraj Andino APRN.UTILITY ENGINEER Work Phone: [facility] Comment on above: Acute otitis media, right (Primary Dx) Start: 11-28-2023 Refill Niraj patel APRN.UTILITY ENGINEER Work Phone: [facility] Comment on above: Med Change Request Start: 11-20-2023 Telephone encounter Niraj quiñones APRN.UTILITY ENGINEER Work Phone: [facility] Comment on above: Question (checking t o see if something is needed for precaution ) Start: 09-29-2023 End: 09-30-2023 Emergency department patient visit [facility]Emergency Department Work Phone: Start: 09-26-2023 ambulatory Niraj patel APRN.UTILITY ENGINEER Work Phone: [facility] Comment on above: Limping and dragging left let Start: 09-24-2023 Registered Rec[facility]ring [facility] Work Phone: Start: 09-16-2023 Telephone encounter Niraj quiñones APRN.UTILITY ENGINEER Work Phone: [facility] Comment on above: Patient Question (re garding Autism testing results) Start: 09-02-2023 End: 09-02-2023 Office outpatient visit 15 minutes Georgia Milton APRN.CASE MANAGEMENT ASSISTANT Work Phone: [facility] [place] Comment on above: Cellulitis of skin ( Primary Dx); Schizophreniform disorder (HCC); Non-verbal learning disorder; Dysuria Start: 08-05-2023 Telephone encounter Niraj quiñones APRN.CNP Work Phone: [facility] [place] Comment on above: Medication Problem Start: 07-30-2023 Telephone encounter Niraj quiñones APRN.UTILITY ENGINEER Work Phone: [facility] Comment on above: Medication Problem Start: 07-26-2023 Telephone encounter Niraj quiñones APRN.UTILITY ENGINEER Work Phone: [facility] Comment on above: Results Start: 07-25-2023 End: 07-25-2023 Patient encounter procedure Niraj Andino APRN.UTILITY ENGINEER Work Phone: [facility] Comment on above: Non-verbal learning disorder (Primary Dx); Moderate protein-calorie malnutrition (HCC); Schizophrenia, unspecified type (HCC); GERD without esophagitis; Paleness; Family history of thyroid disease; Screening for diabetes mellitus; Encounter for lipid screening for cardiovascular disease Start: 06-27-2023 Telephone encounter Niraj quiñones APRN.UTILITY ENGINEER Work Phone: [facility] [place] Comment on above: Results Start: 06-25-2023 Telephone encounter Niraj quiñones APRN.UTILITY ENGINEER Work Phone: [facility] Comment on above: Results Start: 06-25-2023 End: 06-25-2023 Subsequent hospital visit by physician [facility] [place] Work Phone: Radiology Comment on above: Decreased appetite [ R63.0] Start: 05-06-2023 Telephone encounter Niraj quiñones APRN.UTILITY ENGINEER Work Phone: [facility] [place] Comment on above: Patient Question Start: 04-24-2023 Refill Niraj patel APRN.UTILITY ENGINEER Work Phone: [facility] Comment on above: Refill Request Start: 04-19-2023 End: 04-19-2023 Patient encounter procedure Niraj Andino APRN.UTILITY ENGINEER Work Phone: [facility] Comment on above: Picky eater (Primary Dx); Impacted cerumen of left ear; Non-verbal learning disorder Start: 02-28-2023 End: 02-28-2023 Patient encounter procedure Niraj Andino APRN.UTILITY ENGINEER Work Phone: [facility] Comment on above: Encounter for immuni zation (Primary Dx); Chronic insomnia Start: 02-25-2023 Telephone encounter Niraj quiñones APRN.UTILITY ENGINEER Work Phone: [facility] Comment on above: Refill Request Start: 02-04-2023 Telephone encounter Niraj quiñones APRN.UTILITY ENGINEER Work Phone: [facility] Comment on above: Patient Update Start: 01-11-2023 ambulatory Niraj patel APRN.UTILITY ENGINEER Work Phone: [facility] Comment on above: Fever Start: 01-11-2023 End: 01-11-2023 [facility] Start: 12-31-2022 Refill Niraj patel APRN.UTILITY ENGINEER Work Phone: [facility] Comment on above: Refill Request; Refi ll Request; Refill Request Start: 12-28-2022 Refill Niraj patel APRN.UTILITY ENGINEER Work Phone: [facility] Comment on above: Refill Request Start: 12-27-2022 Telephone encounter Niraj quiñones APRN.UTILITY ENGINEER Work Phone: [facility] Comment on above: Results Start: 12-25-2022 End: 12-25-2022 Patient encounter procedure Niraj Andino APRN.UTILITY ENGINEER Work Phone: [facility] Comment on above: GERD without esophag itis (Primary Dx); Elevated LFTs Start: 12-25-2022 Telephone encounter Niraj quiñones APRN.UTILITY ENGINEER Work Phone: [facility] Comment on above: Insurance Authorizat ion (Protonix packets ) Start: 12-23-2022 End: 12-23-2022 Emergency department patient visit [facility]Emergency Department Work Phone: Start: 12-23-2022 End: 12-23-2022 Patient encounter procedure Kailee Pettit PA-C Work Phone: [facility] Comment on above: Abdominal pain, unsp ecified abdominal location (Primary Dx) Start: 12-06-2022 End: 12-06-2022 [facility] Start: 12-06-2022 End: 12-06-2022 Patient encounter procedure Niraj Andino APRN.UTILITY ENGINEER Work Phone: [facility] Comment on above: Schizophrenia, unspe cified type (HCC) (Primary Dx) Start: 11-26-2022 Social Work Felicita Salgado PLASTIC PROCESS TECHNICIAN Wilton vega Start: 11-09-2022 Telephone encounter Niraj quiñones APRN.UTILITY ENGINEER Work Phone: [facility] Comment on above: Guardianship Assista nce Start: 11-02-2022 Telephone encounter Talya norwood [facility] Work Phone: Psychology Comment on above: BH consult Medication Problem; Patient Question Start: 11-01-2022 End: 11-01-2022 Patient encounter procedure Niraj Andino APRN.UTILITY ENGINEER Work Phone: [facility] Comment on above: Schizophrenia, unspe cified type (HCC) (Primary Dx); Well adult exam [Z00.00 (ICD-10-CM)]; GERD without esophagitis; Vitamin D deficiency; Medication management; Screening for diabetes mellitus; Encounter for lipid screening for cardiovascular disease Start: 11-01-2022 End: 11-01-2022 Patient encounter status Niraj Andino APRN.UTILITY ENGINEER Work Phone: [facility] Start: 10-22-2022 End: 10-22-2022 ambulatory [facility] Ambulatory Start: 10-22-2022 End: 10-22-2022 Office outpatient visit 40 minutes Michelle Neely MD Work Phone: Michelle Neely MD Comment on above: Schizophrenic disord er (CMS/HCC) (Primary Dx); Weight loss, abnormal; Non-seasonal allergic rhinitis, unspecified trigger; Vitamin D deficiency; Gastroesophageal reflux disease without esophagitis; Body mass index (BMI) 19.9 or less, adult Start: 10-06-2022 End: 10-07-2022 Evaluation and management of inpatient FARIDEH PRESCOTT Facility:UNKNOWN Start: 07-23-2022 End: 07-23-2022 ambulatory [facility] Ambulatory Start: 07-23-2022 End: 07-23-2022 Encounter for general adult medical examination without abnormal findings [facility] Start: 07-23-2022 End: 07-23-2022 Office outpatient visit 40 minutes Michelle Neely MD Work Phone: Michelle Neely MD Comment on above: Mild protein-calorie malnutrition (CMS/HCC) (Primary Dx); Non-seasonal allergic rhinitis, unspecified trigger; Gastroesophageal reflux disease without esophagitis; Schizophrenic disorder (CMS/HCC); Health care maintenance; Vitamin D deficiency; Screening for colorectal cancer Start: 07-23-2022 End: 07-23-2022 Patient encounter status Michelle Neely MD Work Phone: [facility] Work Phone: Start: 07-22-2022 Encounter for genera l adult medical examination without abnormal findings [facility] Start: 07-22-2022 Patient encounter status Michelle Neely MD Work Phone: [facility] Work Phone: Start: 06-04-2022 End: 06-06-2022 Patient encounter procedure Michelle Neely MD Work Phone: [facility] Work Phone: Start: 06-04-2022 End: 06-06-2022 Physical examination Michelle Neely MD Work Phone: [facility] Work Phone: Start: 04-24-2022 Office outpatient vi sit 25 minutes Michelle Neely Work Phone: [facility] Work Phone: Start: 04-24-[address] Michelle Neely Facility:[id number] Start: 01-23-2022 Office outpatient vi sit 25 minutes Michelle Salvador [facility] Work Phone: [facility] Work Phone: Start: 01-23-[address] Michelle Neely Facility:[id number] Start: 12-12-2021 AUDIT Michelle Salvador Mi khail Work Phone: [facility] Work Phone: Start: 10-25-2021 Adv care pln tlkd & alt dcsn maker docd Michelle Salvador [facility] Work Phone: [facility] Work Phone: Start: 10-25-[address] Michelle Neely Facility:[id number] Start: 09-18-2021 AUDIT Michelle Munoz khail Work Phone: [facility] Work Phone: Start: 07-27-2021 Chart Update Michelle Munoz khail Work Phone: [facility] Work Phone: Start: 07-26-2021 Office outpatient vi sit 40 minutes Michelle Salvador [facility] Work Phone: [facility] Work Phone: Start: 07-26-[address] Michelle Neely Facility:[id number] Start: 06-20-2021 AUDIT Michelle Munoz khail Work Phone: [facility] Work Phone: Start: 03-16-2021 AUDIT Michelle Salvador Mi khail Work Phone: [facility] Work Phone: Start: 04-03-2019 Patient encounter procedure Michelle Neely [facility] Work Phone: Start: 01-02-2019 Patient encounter procedure Michelle Neely [facility] Work Phone: Start: 10-03-2018 Patient encounter procedure Michelle Neely [facility] Work Phone: Start: 07-04-2018 Patient encounter procedure Michelle Neely [facility] Work Phone: Start: 02-28-2018 Patient encounter procedure Michelle Neely [facility] Work Phone: Start: 12-06-2017 Patient encounter procedure Michelle Neeyl [facility] Work Phone: Start: 08-30-2017 Patient encounter procedure Michelle Neely [facility] Work Phone: Start: 07-19-2017 Patient encounter procedure Michelle Neely [facility] Work Phone: Patient encounter procedure Michelle Neely Work Phone: [facility] Work Phone: Physical examination Michelle Neely Work Phone: [facility] Work Phone: Procedures Date Procedure Procedure Detail Performing Clinician Start: 12-09-2024 Urnls dip stick/tabl et reagent auto microscopy Niraj Andino CORPORATE BUYER-C Work Phone: Start: 12-09-2024 Estimated creatinine clearance Niraj Andino CORPORATE BUYER-C Work Phone: Start: 11-03-2024 Alternaria alternata MARQUES Andino CORPORATE BUYER-C Work Phone: Start: 11-03-2024 Vietnamese cockroach MARQUES Andino CORPORATE BUYER-C Work Phone: Start: 11-03-2024 Box elder MARQUES Andino CORPORATE BUYER-C Work Phone: Start: 11-03-2024 Cat dander MARQUES Duffy CORPORATE BUYER-C Work Phone: Start: 11-03-2024 Lynn MARQUES quiñones CORPORATE BUYER-C Work Phone: Start: 11-03-2024 Common ragweed RAST Milan fabricio Sina CORPORATE BUYER-C Work Phone: Start: 11-03-2024 Common silver birch RAST Niraj Andino CORPORATE BUYER-C Work Phone: Start: 11-03-2024 House dust mite (Df) RAST Niraj Andino CORPORATE BUYER-C Work Phone: Start: 11-03-2024 Mouse urine proteins RAST Niraj Andino CORPORATE BUYER-C Work Phone: Start: 11-03-2024 Pecan nut RAST Niraj Andino CORPORATE BUYER-C Work Phone: Start: 11-03-2024 Penicillium chrysoge num RAST Niarj Andino CORPORATE BUYER-C Work Phone: Start: 11-03-2024 Zimbabwean thistle RAST Clifford Andino CORPORATE BUYER-C Work Phone: Start: 11-03-2024 Tree pollen RAST Joshua Julian CORPORATE BUYER-C Work Phone: Start: 11-03-2024 [place] pollen RAST Joshua Julian CORPORATE BUYER-C Work Phone: Start: 09-30-2024 Us abdominal real ti me w/image limited Niraj Andino FLOOR COVERING CONTRACTOR.UTILITY ENGINEER Work Phone: Start: 08-27-2024 AUDIOGRAM Jory E Co rbett AuD Work Phone: Start: 08-11-2024 Lipid 1996 panel - S jose armando or Plasma Niraj Andino FLOOR COVERING CONTRACTOR.UTILITY ENGINEER Work Phone: Start: 07-01-2024 Radiologic exam ches t 2 views Donna Aponte FLOOR COVERING CONTRACTOR.UTILITY ENGINEER Work Phone: Start: 04-02-2024 Radiologic exam ches t 2 views Niraj Andino FLOOR COVERING CONTRACTOR.UTILITY ENGINEER Work Phone: Start: 12-19-2023 Radiologic examinati on skull 4/> views Niraj Andino APRN.UTILITY ENGINEER Work Phone: Start: 09-29-2023 CT of abdomen and pe lvis without contrast Start: 09-02-2023 Urnls dip stick/tabl et reagent auto microscopy Georgia Milton FLOOR COVERING CONTRACTOR.CASE MANAGEMENT ASSISTANT Work Phone: Start: 09-02-2023 Urnls dip stick/tabl et rgnt auto w/o microscopy Georgia Milton FLOOR COVERING CONTRACTOR.CASE MANAGEMENT ASSISTANT Work Phone: Start: 07-25-2023 Lipid 1996 panel - S jose armando or Plasma Niraj Andino FLOOR COVERING CONTRACTOR.UTILITY ENGINEER Work Phone: Start: 06-25-2023 Radiologic exam abdo men 1 view Niraj Andino APRN.UTILITY ENGINEER Work Phone: Start: 02-28-2023 INFLUENZA VACCINE, A GE 6 MO - 64 YR, QUADRIVALENT (AFLURIA, FLULAVAL, FLUZONE) Niraj Andino APRN.UTILITY ENGINEER Work Phone: Start: 01-11-2023 Plain chest X-ray Start: 01-11-2023 SARS-CoV-2 & FLU Ant igen (Rapid) Start: 12-23-2022 Computed tomography of abdomen and pelvis with intravenous contrast Start: 12-23-2022 US scan of gallbladder Start: 07-23-2022 Oncology colorectal screening juany 10 dna markrs MICHELLE NEELY Start: 10-25-2021 Follow-up visit Start: 07-26-2021 Lipid 1996 panel - S jose armando or Plasma Michelle Neely MD Work Phone: NEGATED: Highlighted row has not occurred! Denies Surgery Michelle freed Work Phone: Plan of Treatment Date Care Activity Detail Author Start: 03-03-2034 Tetanus vaccination TETANUS [facility] Start: 03-03-2034 Urine microalbumin profile DTaP,Tdap,Td Vaccine (2 - Td or Tdap) [facility] Start: 08-11-2029 Lipid panel Lipid Screening [facility] Start: 07-24-2028 Lipid panel Lipid Screening [facility] Start: 12-19-2027 Diabetes Screening Diabetes Screening [facility] Start: 08-12-2027 Diabetes Screening Diabetes Screening [facility] Start: 07-26-2026 Lipid 1996 panel - Serum or Plasma Lipid Screening [facility] Start: 07-26-2026 Lipid panel [facility] Start: 07-26-2026 LIPID SCREEN LIPID SCREEN [facility] Start: 07-24-2026 Diabetes Screening Diabetes Screening [facility] Start: 06-25-2026 Diabetes Screening Diabetes Screening [facility] Start: 2026 Zoster Vaccines (1 of 2) Zoster Vaccines (1 of 2) [facility] Start: 01-25-2026 End: 01-25-2026 Patient encounter procedure 01/25/2026 2:15 PM EDT Office Visit [facility] [address] [facility] [facility] [place] [id number] Janett Perdomo, OD [address] [facility] [place], [place] [id number] Diagnostics, [facility] [place] [address] 1 YR F/U for complete eye exam. Ophthalmology Comment on above: 1 YR F/U for complete eye exam. Start: 12-25-2025 DIABETES SCREEN DIABETES SCREEN [facility] Start: 12-25-2025 Diabetes Screening Diabetes Screening [facility] Start: 08-11-2025 Anxiety Screening Anxiety Screening [facility] Comment on above: Postponed from 1994 (Declined at t his time) Start: 02-16-2025 End: 02-16-2025 Patient encounter procedure 02/16/2025 3:40 PM EDT Office Visit [facility] [place] [address] [place], [place] [id number] Niraj Andino APRN.[facility] [address] [place], [place] [id number] 6 month follow up [facility] [place] Comment on above: 6 month follow up Start: 02-11-2025 End: 02-11-2025 Patient encounter procedure 02/11/2025 3:40 PM EDT Office Visit [facility] [place] [address] [place] [address] Niraj Andino APRN.UTILITY ENGINEER [address] [place] [address] 6 month follow up [facility] [place] Comment on above: 6 month follow up Start: 01-22-2025 End: 01-22-2025 Patient encounter procedure 01/22/2025 2:30 PM EDT Office Visit [facility] [address] [place] [address] Janett Perdomo, OD [address] [place] [address] Diagnostics, [facility] [address] [place] [address] blurry vision Ophthalmology Comment on above: blurry vision Start: 01-18-2025 Influenza [facility] Start: 01-12-2025 End: 04-13-2025 Bacteria identified in Urine by Culture BACTERIAL CULTURE, URINE Microbiology Routine Lower abdominal pain Expected: 01/12/2025, Expires: 04/13/2025 [facility] Comment on above: Expected: 01/12/2025, Expires: Start: 01-12-2025 End: 04-13-2025 Urinalysis complete panel - Urine URINALYSIS, WITH MICROSCOPIC Lab Routine Lower abdominal pain Expected: 01/12/2025, Expires: 04/13/2025 [facility] Work Phone: Comment on above: Expected: 01/12/2025, Expires: Start: 12-09-2024 [facility] Start: 10-06-2024 Hepatitis B vaccination HEP B VACCINE (3 of 3 - 19+ 3-dose series) [facility] Start: 10-06-2024 Hepatitis B Vaccine (3 of 3 - 19+ 3-dose series) Hepatitis B Vaccine (3 of 3 - 19+ 3-dose series) [facility] Start: 09-30-2024 End: 09-30-2024 Patient encounter procedure 09/30/2024 1:00 PM EDT Appointment Radiology [address] [place] [address] Elevated alkaline phosphatase level [R74.8]; Elevated LFTs [R79.89] Radiology Comment on above: Elevated alkaline phosphatase level [R74 .8]; Elevated LFTs [R79.89] Start: 09-29-2024 End: 09-29-2024 Patient encounter procedure [facility] [place] Start: 09-01-2024 Hepb vaccine adult 3 dose schedule for im use HEP B VACCINE, 3-DOSE, AGE 20+ YR (ENGERIX-B, RECOMBIVAX HB) Immunization/Injection Routine Need for vaccination Expected: 09/01/2024 (Approximate) [facility] Comment on above: Expected: 09/01/2024 (Approximate) Start: 08-28-2024 End: 11-27-2024 Hepatic function 2000 panel - Serum or Plasma HEPATIC FUNCTION PNL Lab Routine Elevated LFTs Expected: 08/28/2024, Expires: 11/27/2024 [facility] Work Phone: Comment on above: Expected: 08/28/2024, Expires: Start: 08-27-2024 End: 11-26-2024 ALK PHOS ISOENZYM BL ALK PHOS ISOENZYM BL Lab Routine Elevated alkaline phosphatase level Expected: 08/27/2024, Expires: 11/26/2024 [facility] Work Phone: Comment on above: Expected: 08/27/2024, Expires: Start: 08-27-2024 End: 11-26-2024 Gamma glutamyl transferase [Enzymatic activity/volume] in Serum or Plasma GGT Lab Routine Elevated alkaline phosphatase level Expected: 08/27/2024, Expires: 11/26/2024 [facility] Comment on above: Expected: 08/27/2024, Expires: Start: 08-27-2024 End: 11-26-2024 Mitochondria Ab [Presence] in Serum by Immunofluorescence MITOCHONDRIAL M2 IGG SERUM Lab Routine Elevated alkaline phosphatase level Expected: 08/27/2024, Expires: 11/26/2024 [facility] Comment on above: Expected: 08/27/2024, Expires: Start: 08-11-2024 End: 08-11-2024 Patient encounter procedure 08/11/2024 3:40 PM EDT Office Visit [facility] [address] [place] [address] Niraj Andino APRN.UTILITY ENGINEER [address] [place], [place] [id number] physical [facility] Comment on above: physical Start: 08-11-2024 End: 11-10-2024 25-hydroxyvitamin D3 [Mass/volume] in Serum or Plasma [facility] Comment on above: Expected: 08/11/2024, Expires: Start: 08-11-2024 End: 11-10-2024 Comprehensive metabolic 2000 panel - Serum or Plasma [facility] Work Phone: Comment on above: Expected: 08/11/2024, Expires: Start: 08-11-2024 Depression Screening Depression Screening [facility] Comment on above: Postponed from 1994 (Declined at t his time) Start: 08-11-2024 End: 11-10-2024 Iron and Iron binding capacity panel - Serum or Plasma [facility] Comment on above: Expected: 08/11/2024, Expires: Start: 08-11-2024 End: 11-10-2024 LIPID PANEL, NONFASTING [facility] Comment on above: Expected: 08/11/2024, Expires: Start: 08-11-2024 End: 11-10-2024 Thyrotropin [Units/volume] in Serum or Plasma [facility] Comment on above: Expected: 08/11/2024, Expires: Start: 05-20-2024 Medicare Advantage Annual Wellness Visit Medicare Advantage Annual Wellness Visit [facility] Start: 04-02-2024 End: 07-02-2024 25-hydroxyvitamin D3 [Mass/volume] in Serum or Plasma [facility] Comment on above: Expected: 04/02/2024, Expires: Start: 04-02-2024 End: 07-02-2024 CBC W Auto Differential panel - Blood [facility] Comment on above: Expected: 04/02/2024, Expires: 5 Start: 04-02-2024 End: 07-02-2024 Thyrotropin [Units/volume] in Serum or Plasma [facility] Work Phone: Comment on above: Expected: 04/02/2024, Expires: 5 Start: 03-31-2024 End: 03-31-2024 Nursing evaluation of patient and report 03/31/2024 3:45 PM EST Nurse Visit [facility] [address] [place] [address] Nurse, N[place] [address] [facility] [place] [place] [address] Hep B series 2nd injection [facility] Comment on above: Hep B series 2nd injection Start: 03-31-2024 Hepatitis B Vaccine (2 of 3 - 19+ 3-dose series) Hepatitis B Vaccine (2 of 3 - 19+ 3-dose series) [facility] Start: 03-03-2024 End: 03-03-2024 Nursing evaluation of patient and report 03/03/2024 3:45 PM EDT Nurse Visit [facility] [address] [place] [address] Nurse, [place] [address] [facility] [place] [address] Hep B series (1st injection), Dtap, ? flu shot [facility] Comment on above: Hep B series (1st injection), Dtap, ? fl u shot Start: 02-20-2024 End: 05-21-2024 Acute hepatitis 2000 panel - Serum [facility] Comment on above: Expected: 02/20/2024, Expires: Start: 02-20-2024 End: 05-21-2024 Clostridium tetani IgG Ab [Units/volume] in Serum by Immunoassay [facility] Comment on above: Expected: 02/20/2024, Expires: Start: 02-20-2024 End: 05-21-2024 DIPHTHERIA IGG ABS [facility] Comment on above: Expected: 02/20/2024, Expires: Start: 02-20-2024 End: 05-21-2024 MUMPS IGG AB [facility] Comment on above: Expected: 02/20/2024, Expires: Start: 02-20-2024 End: 05-21-2024 RUBEOLA (MEASLES)IGG [facility] Comment on above: Expected: 02/20/2024, Expires: Start: 02-20-2024 End: 05-21-2024 VARICELLA ZOSTER IGG [facility] Comment on above: Expected: 02/20/2024, Expires: Start: 01-19-2024 Covid-19 Vaccine ( season) Covid-19 Vaccine ( season) [facility] Start: 01-19-2024 Covid-19 Vaccine () Covid-19 Vaccine () [facility] Start: 01-19-2024 Influenza vaccination Influenza Vaccine (#1) [facility] Start: 09-30-2023 [facility] Start: 07-25-2023 End: 10-24-2023 25-hydroxyvitamin D3 [Mass/volume] in Serum or Plasma [facility] Work Phone: Comment on above: Expected: 07/25/2023, Expires: Start: 07-25-2023 End: 10-24-2023 CBC W Auto Differential panel - Blood [facility] Work Phone: Comment on above: Expected: 07/25/2023, Expires: Start: 07-25-2023 End: 10-24-2023 Cobalamin (Vitamin B12) [Mass/volume] in Serum or Plasma [facility] Work Phone: Comment on above: Expected: 07/25/2023, Expires: Start: 07-25-2023 End: 10-24-2023 Ferritin [Mass/volume] in Serum or Plasma [facility] Work Phone: Comment on above: Expected: 07/25/2023, Expires: Start: 07-25-2023 End: 10-24-2023 Folate [Mass/volume] in Serum or Plasma [facility] Work Phone: Comment on above: Expected: 07/25/2023, Expires: Start: 07-25-2023 End: 10-24-2023 Hemoglobin A1c in Blood [facility] Work Phone: Comment on above: Expected: 07/25/2023, Expires: Start: 07-25-2023 End: 10-24-2023 Iron and Iron binding capacity panel - Serum or Plasma [facility] Work Phone: Comment on above: Expected: 07/25/2023, Expires: Start: 07-25-2023 End: 10-24-2023 LIPID PANEL, NONFASTING [facility] Work Phone: Comment on above: Expected: 07/25/2023, Expires: Start: 07-25-2023 End: 10-24-2023 Thyrotropin [Units/volume] in Serum or Plasma [facility] Work Phone: Comment on above: Expected: 07/25/2023, Expires: Start: 05-20-2023 Behavioral Health Screening Behavioral Health Screening [facility] Start: 05-20-2023 Depression Assessment Depression Assessment [facility] Start: 01-18-2023 Covid-19 Vaccine ( season) Covid-19 Vaccine () [facility] Start: 01-18-2023 Influenza vaccination [facility] Start: 12-25-2022 End: 02-24-2023 Comprehensive metabolic 2000 panel - Serum or Plasma [facility] Work Phone: Comment on above: Expected: 12/25/2022, Expires: 3 Start: 12-06-2022 Referral to service [facility] Start: 11-01-2022 End: 01-01-2023 CBC W Auto Differential panel - Blood CBC + DIFF Lab Routine Medication management Expected: 11/01/2022, Expires: 01/01/2023 [facility] Work Phone: Comment on above: Expected: 11/01/2022, Expires: 3 Start: 11-01-2022 End: 01-01-2023 Comprehensive metabolic 2000 panel - Serum or Plasma COMP METABOLIC PANEL Lab Routine Medication management Expected: 11/01/2022, Expires: 01/01/2023 [facility] Work Phone: Comment on above: Expected: 11/01/2022, Expires: 3 Start: 11-01-2022 End: 01-01-2023 Hemoglobin A1c in Blood HGB A1C Lab Routine Screening for diabetes mellitus Expected: 11/01/2022, Expires: 01/01/2023 [facility] Work Phone: Comment on above: Expected: 11/01/2022, Expires: 3 Start: 11-01-2022 End: 01-01-2023 LIPID PANEL, NONFASTING LIPID PANEL, NONFASTING Lab Routine Encounter for lipid screening for cardiovascular disease Expected: 11/01/2022, Expires: 01/01/2023 [facility] Work Phone: Comment on above: Expected: 11/01/2022, Expires: 3 Start: 10-22-2022 End: 10-22-2022 Patient encounter procedure 10/22/2022 8:30 AM EDT Office Visit Michelle Neely MD [address] [place] [phone] Michelle Neely MD [address] [place] [address] Physician Offices, [address] [address] Michelle Neely MD Start: 07-23-2022 End: 07-24-2023 CBC and Differential, Stem Cell/Drainage CBC and Differential, Stem Cell/Drainage Lab Routine Mild protein-calorie malnutrition (CMS/HCC) Health care maintenance Expected: 07/23/2022 (Approximate), Expires: 07/24/2023 [facility] Service Area Work Phone: Comment on above: Expected: 07/23/2022 (Approximate), Expi res: 07/24/2023 Start: 07-23-2022 End: 07-24-2023 Cologuard colon cancer screening Cologuard colon cancer screening Lab Routine Screening for colorectal cancer Expected: 07/23/2022 (Approximate), Expires: 07/24/2023 [facility] Work Phone: Comment on above: Expected: 07/23/2022 (Approximate), Expi res: 07/24/2023 Start: 07-23-2022 End: 07-24-2023 Comprehensive metabolic 2000 panel - Serum or Plasma Comprehensive Metabolic Panel Lab Routine Health care maintenance Expected: 07/23/2022 (Approximate), Expires: 07/24/2023 [facility] Work Phone: Comment on above: Expected: 07/23/2022 (Approximate), Expi res: 07/24/2023 Start: 07-23-2022 End: 07-24-2023 Lipid 1996 panel - Serum or Plasma Lipid Panel Lab Routine Health care maintenance Expected: 07/23/2022 (Approximate), Expires: 07/24/2023 [facility] Work Phone: Comment on above: Expected: 07/23/2022 (Approximate), Expi res: 07/24/2023 Start: 07-23-2022 End: 07-24-2023 TSH with reflex to Free T4 if abnormal TSH with reflex to Free T4 if abnormal Lab Routine Health care maintenance Expected: 07/23/2022 (Approximate), Expires: 07/24/2023 [facility] Work Phone: Comment on above: Expected: 07/23/2022 (Approximate), Expi res: 07/24/2023 Start: 07-23-2022 FUV, Provider: Michelle Neely, Status: Pen, Time: 8:45 AM FUV, Provider: Michelle Neely, Status: Pen, Time: 8:45 AM [facility] Work Phone: Start: 05-20-2022 DEPRESSION ASSESSMENT DEPRESSION ASSESSMENT [facility] Start: 04-24-2022 FUV, Provider: Michelle Neely, Status: Pen, Time: 8:30 AM FUV, Provider: Michelle Neely, Status: Pen, Time: 8:30 AM [facility] Work Phone: Start: 01-23-2022 FUV, Provider: Michelle Neely, Status: Pen, Time: 8:30 AM FUV, Provider: Michelle Neely, Status: Pen, Time: 8:30 AM [facility] Work Phone: Start: 01-18-2022 Influenza vaccination Influenza Vaccine (#1) [facility] Start: 10-25-2021 Patient encounter procedure MCRANNUAL, Provider: Michelle Neely, Status: Pen, Time: 8:45 AM [facility] Work Phone: Start: 07-26-2021 FUV, Provider: Michelle Neely, Status: Pen, Time: 8:30 AM FUV, Provider: Michelle Neely, Status: Pen, Time: 8:30 AM [facility] Work Phone: Start: 2021 COLOGUARD (FIT-DNA) COLOGUARD (FIT-DNA) [facility] Start: 2021 Colonoscopy COLONOSCOPY [facility] Start: 2021 COLORECTAL CANCER SCREENING COLORECTAL CANCER SCREENING [facility] Start: [address] COLONOGRAPHY [facility] Start: 2021 DIABETES SCREEN DIABETES SCREEN [facility] Start: 2021 FECAL OCCULT BLOOD FECAL OCCULT BLOOD [facility] Start: 2021 Screening for malignant neoplasm of colon [facility] Start: 2021 SIGMOIDOSCOPY SIGMOIDOSCOPY [facility] Start: 03-29-2021 FUV, Provider: Michelle Neely, Status: Pen, Time: 8:30 AM FUV, Provider: Michelle Neely, Status: Pen, Time: 8:30 AM [facility] Work Phone: Start: 2016 Lipid panel LIPID SCREENING [facility] Start: 1998 DTaP/Tdap/Td Vaccines (1 - Tdap) DTaP/Tdap/Td Vaccines (1 - Tdap) [facility] Start: 1995 Hepatitis B Vaccine (1 of 3 - 19+ 3-dose series) Hepatitis B Vaccine (1 of 3 - 19+ 3-dose series) [facility] Start: 1995 Urine microalbumin profile [facility] Start: 1994 Anxiety Screening Anxiety Screening [facility] Start: 1994 COVID-19 Vaccine (#1) COVID-19 Vaccine (#1) [facility] Start: 1994 Depression Screening Depression Screening [facility] Start: 1994 Hepatitis C screening Hepatitis C Screening [facility] Start: 1994 HEPATITIS C SCREENING HEPATITIS C SCREENING [facility] Start: 1994 HIV SCREENING HIV SCREENING [facility] Start: 1994 HIV screening HIV Screening [facility] Start: 1991 HIV screening HIV SCREENING DISCUSSION [facility] Start: 1983 DTaP/Tdap/Td Vaccines (1 - Tdap) DTaP/Tdap/Td Vaccines (1 - Tdap) [facility] Start: 1977 MMR Vaccines (1 of 1 - Standard series) MMR Vaccines (1 of 1 - Standard series) [facility] Start: 1976 COVID-19 Vaccine (#1) COVID-19 Vaccine (#1) [facility] Start: 1976 HEPATITIS B (1 of 3 - 3-dose series) HEPATITIS B (1 of 3 - 3-dose series) [facility] Start: 1976 Hepatitis B Vaccine (1 of 3 - 3-dose series) Hepatitis B Vaccine (1 of 3 - 3-dose series) [facility] Start: 1976 Hepatitis B Vaccines (1 of 3 - 3-dose series) Hepatitis B Vaccines (1 of 3 - 3-dose series) [facility] Start: 1976 Hepatitis C screening HEPATITIS C VIRUS SCREENING [facility] Start: 1976 HIV screening HIV Screening [facility] Start: 1976 Medicare Annual Wellness Visit Medicare Annual Wellness Visit (AWV) [facility] Start: 1976 Screening for malignant neoplasm of colon [facility] Bilirubin measuremen t, urine [facility] Binocular microscopy separate dx procedure KS BINOCULAR MICROSCOPY SEPARATE DX PROCEDURE KS Charge Routine Asymmetric SNHL (sensorineural hearing loss) Ordered: 09/29/2024 [facility] Comment on above: Ordered: 09/29/2024 COVID & INFLUENZA A/ B & RSV PCR, ROUTINE COVID & INFLUENZA A/B & RSV PCR, ROUTINE Microbiology Routine Cough in adult Sore throat Ordered: 02/20/2024 [facility] Work Phone: Comment on above: Ordered: 02/20/2024 COVID & INFLUENZA A/ B & RSV PCR, ROUTINE COVID & INFLUENZA A/B & RSV PCR, ROUTINE Microbiology Routine URI, acute 06/22/2024 4:35 PM EST [facility] Work Phone: COVID & INFLUENZA A/ B & RSV PCR, ROUTINE COVID & INFLUENZA A/B & RSV PCR, ROUTINE Microbiology Routine Acute cough Ordered: 07/01/2024 [facility] Work Phone: Comment on above: Ordered: 07/01/2024 End: 08-29-2025 HEARING TEST/AUDIOGRAM HEARING TEST/AUDIOGRAM Audiology Routine Non-verbal learning disorder 1 Occurrences starting 08/28/2024 until 08/29/2025 [facility] Work Phone: Comment on above: 1 Occurrences starting 08/28/2024 until 08/29/2025 Helicobacter pylori Ag [Presence] in Stool by Immunoassay [facility] Hemoglobin [Presence ] in Urine [facility] Hepb vaccine adult 3 dose schedule for im use HEP B VACCINE, 3-DOSE, AGE 20+ YR (ENGERIX-B, RECOMBIVAX HB) Immunization/Injection Routine Need for vaccination Ordered: 03/16/2024 [facility] Work Phone: Comment on above: Ordered: 03/16/2024 Measurement of keton es in urine using dipstick [facility] Microscopic urinalysis [facility] Patient Education [facility] Work Phone: Patient referral [facility] Work Phone: pH of Urine [facility] Protein measurement [facility] RUBELLA TITER, IGG B/O RUBELLA T ITER, IGG B/O Lab Routine Measles, mumps, rubella (MMR) vaccination status unknown Ordered: 02/20/2024 [facility] Comment on above: Ordered: 02/20/2024 Specific gravity of Urine [facility] Tdap vaccine 7 yrs/> im TDAP VAC CINE, AGE 7+ YR (ADACEL, BOOSTRIX) Immunization/Injection Routine Encounter for immunization Ordered: 02/27/2024 [facility] Work Phone: Comment on above: Ordered: 02/27/2024 Urinalysis, blood, qualitative [facility] Urine dipstick for glucose [facility] Urine dipstick for leukocyte esterase [facility] Urine dipstick for nitrite [facility] Urine dipstick for protein [facility] Urine examination [facility] Urine microscopy: epithelial cells [facility] Urine Microscopy: wh ite cells [facility] Urobilinogen [Presen ce] in Urine [facility] End: 10-17-2025 US Abdomen RUQ US ABD RIGHT UPPER QUADRANT Radiology Routine Elevated alkaline phosphatase level Elevated LFTs 1 Occurrences starting 09/17/2024 until 10/17/2025 [facility] Work Phone: Comment on above: 1 Occurrences starting 09/17/2024 until 10/17/2025 End: 01-17-2025 XR Skull AP and Lateral XR SKULL 2V AP/LAT Radiology Routine Bony prominence 1 Occurrences starting 12/19/2023 until 01/17/2025 [facility] Work Phone: Comment on above: 1 Occurrences starting 12/19/2023 until 01/17/2025 XR Skull AP and Lateral XR SKULL 2V AP/LAT Radiology Routine Bony prominence 12/19/2023 3:47 PM EDT [facility] Immunizations Immunization Date Immunization Notes Care Provider Adele rock 08-11-2024 hepatitis B vaccine, adult dosage Niraj Andino [employer]LO[employer] COVERING [employer]OR.UTILITY ENGINEER Work Phone: [facility] 03-03-2024 hepatitis B vaccine, adult dosage Mi Nurse Work Phone: [facility] 03-03-2024 influenza, seasonal, injectable [facility] Nurse Work Phone: [facility] 03-03-2024 tetanus toxoid, redu laxmi diphtheria toxoid, and acellular pertussis vaccine, adsorbed [facility] Nurse Work Phone: [facility] 03-03-2024 influenza virus vacc ine, unspecified formulation Alize Villa FLOOR COVERING CONTRACTOR.UTILITY ENGINEER Work Phone: [facility] 02-28-2023 influenza, injectabl e, quadrivalent, contains preservative Niraj Andino FLOOR COVERING CONTRACTOR.UTILITY ENGINEER Work Phone: [facility] 02-28-2023 influenza virus vacc ine, unspecified formulation Niraj Andino FLOOR COVERING CONTRACTOR.UTILITY ENGINEER Work Phone: [facility] Payers Date Payer Category Payer Self-pay 2023 Medicare (Managed Care) [id number]. [id number] 2023 Unknown [id number] 2017 Medicaid [id number] 2017 Medicaid [id number] 2001 Medicare [id number] 2001 Medicare [id number] 1976 Unknown [id number] 1976 Unknown [id number] 1976 Unknown [id number] 1976 Unknown [id number] [id number] 1976 Unknown [id number] [id number] 1976 Unknown [id number] [id number] 1976 Unknown [id number] 1976 Unknown [id number] [id number] 1976 Unknown [id number] [id number] Medicare MEDICARE PART A B [id number] Unknown Unknown [id number] Unknown [id number] [id number] Unknown [id number] [id number] Unknown [id number] [id number] Unknown [id number] Unknown [id number] [id number] Unknown [id number] [id number] Unknown [id number] Unknown [id number] Social History Date Type Detail Facility Start: 10-22-2022 End: 12-25-2022 Caregiver: Family member Caregiver: Family member [facility] Work Phone: Start: 07-23-2022 End: 11-01-2022 Tobacco smoking status NHIS Never smoked tobacco [facility] History of tobacco use Passive smoker [facility] Work Phone: Start: 07-23-2022 End: 11-01-2022 Tobacco use and exposure Smokeless tobacco non-user [facility] Work Phone: Start: 10-22-2022 End: 01-22-2025 Alcohol intake Lifetime non-drinker (finding) [facility] Work Phone: Start: 10-22-2022 End: 12-25-2022 Tobacco use panel [facility] Work Phone: Start: 1975 [facility] Start: 07-13-2022 End: 10-22-2022 Exposure to SARS-CoV-2 (event) Not sure [facility] Start: 10-16-2022 National Score (1-100), lower number is lower risk 99 [facility] Start: 12-06-2022 End: 09-29-2023 Tobacco smoking status NHIS Unknown if ever smoked [facility] Start: 1975 Sex Assigned At Male W [facility] Start: 08-14-2024 Sex Male (finding) [facility] Start: 08-26-2024 Gender identity Identifies as male gender (finding) [facility] Start: 08-26-2024 Sexual orientation Heterosexual (fin ding) [facility] NEGATED: Highlighted row - - [facility] Work Phone: Functional Status Date Assessment Result Facility NEGATED: Highlighted row Functional performance Functional status health issues are not documented [facility] Work Phone: Mental Status Date Assessment Result Facility 12-09-2024 Cognitive function Level Of Cons ciousness Awake;Alert [facility] Work Phone: 01-11-2023 Cognitive function Level Of Cons ciousness Awake;Alert;Appropriate [facility] Work Phone: NEGATED: Highlighted row Cognitive function [Interpretation] Cognitive status health issues are not documented Disease [facility] Work Phone: Clinical Notes 07-23-2022 to 01-22-2025 Janett Perdomo, ANA - 01/22/2025 3:20 PM EDTPatient InstructionsTelephone Encounter - Michelle Tijerina RN - 01/15/2025 12:47 PM EDTTelephone Encounter - Leidy Shrestha LPN - 01/15/2025 10:46 AM EDT Note Date & Type Note Facility 01-22-2025 Note HNO ID: [id number] Author: JANETT PERDOMO OD Service: ? Author Type: [employer] Type: Progress Notes Filed: 01/22/2025 15:26 Note Text: 1. 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 Irregular astigmatism of both eyes 3. 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 With poor patient cooperation, unable to cyclo (patient would not allow eye drops) or get accurate retinoscopy Would not recommend glasses at this time Educated pt and sister on NO eye rubbing which can worsen condition and to use artificial tears instead as needed 4. Austism Patient non-verbal Currently being cared for by his sister Follow-up in 1 year for complete eye exam- will attempt cyclo again next year I have confirmed and edited as necessary the relevant HPI, ophthalmic history, ROS, and the neuro exam findings as obtained by others. I have seen and examined Arvind Domínguez. I have discussed the case and the management of this patient's care with the Resident/Fellow, if applicable. I also have reviewed and agree with the assessment and plan as stated above and agree with all of its relevant components. Janett Perdomo, OD January 22, 2025 3:20 PM [facility] 01-22-2025 History of Presen t illness Narrative 1. 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 Irregular astigmatism of both eyes 3. 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 With poor patient cooperation, unable to cyclo (patient would not allow eye drops) or get accurate retinoscopy Would not recommend glasses at this time Educated pt and sister on NO eye rubbing which can worsen condition and to use artificial tears instead as needed 4. Austism Patient non-verbal Currently being cared for by his sister Follow-up in 1 year for complete eye exam- will attempt cyclo again next year I have confirmed and edited as necessary the relevant HPI, ophthalmic history, ROS, and the neuro exam findings as obtained by others. I have seen and examined Arvind Luznum. I have discussed the case and the management of this patient's care with the Resident/Fellow, if applicable. I also have reviewed and agree with the assessment and plan as stated above and agree with all of its relevant components. Janett Perdomo, ANA January 22, 2025 3:20 PM documented in this encounter [facility] 01-22-2025 Instructions Janett Perdomo OD - 01/22/2025 3:04 PM EDT Use Systane Complete or Refresh Relieva as needed for irritation/in place of eye rubbing documented in this encounter [facility] 01-15-2025 Telephone encounter Note See Telephone Encounter 01/15/2025. [facility] 01-15-2025 Miscellaneous Notes Patient's sister notified of results and provider's instructions. Patient's sister verbalizes understanding. Michelle Tijerina RN Left message to return call. Let patient's sister know that his urine did show bacteria that should respond to the atb given. I will need to know if he doesn't improve. If worsening, don't hesitate to go to ER over the holiday weekend. Lorraine Dong PA-C documented in this encounter [facility] 01-15-2025 Miscellaneous Notes See Telephone Encounter 01/15/2025. Sister Chiki calling in again to ask about results. She has not started pt on the antibiotics yet. Per Lorraine's OV note, it appears she wanted pt to get the antibiotics as soon as he gave a urine sample. Chiki will go get them from the pharmacy and starting giving them to him. She states he is still saying he is hurting and pointing to the same area. She denies any bowel changes, vomiting, or fevers. Still states she doesn't notice any swelling of his male genitalia either. Notified we will contact her once we have the urine culture report back. Let them know that I don't have all the results back yet. But based on urinalysis he doesn't have any blood. Just a small amount of leuks which may or may not be from infection. . Is there anything new that she can report about his symptoms? Has the location that he points to changed? Any bowel changes, vomiting, fevers Lorraine Dong PA-C Patient's sister Chiki calls and states that patient continues to not feel well. Chiki had brought in urine to have tested yesterday. Latest Ref Rng 01/13/2025 Color Yellow Yellow Clarity Clear Clear Glucose, Urine Negative Negative Bilirubin, Urine Negative Negative Ketones, Urine Negative Negative Specific Castell, Ur 1.005 - 1.030 1.020 Hemoglobin/Blood,Ur Negative Negative pH, Urine 5.0 - 8.0 6.5 Protein, Urine Negative Negative Urobilinogen 0.2-1.0 EU/dL 1.0 EU/dL Nitrites Negative Negative Leukest Negative 1+ ! WBC, Urine 0-5 /HPF 0-5 /HPF RBC, Urine 0-2 /HPF 0-2 /HPF Bacteria Negative /HPF Negative Epithelial Cells /HPF None Seen Hyaline Cast 0 /LPF 1-3 /LPF ! Urine Culture is Still Pending. Please review and advise, Michelle Tijerina RN documented in this encounter [facility] 01-15-2025 Telephone encounter Note Patient's sister notified of results and provider's instructions. Patient's sister verbalizes understanding. Michelle Tijerina RN [facility] 01-15-2025 Telephone encounter Note Left message to return call. [facility] 01-15-2025 Telephone encounter Note Let patient's sister know that his urine did show bacteria that should respond to the atb given. I will need to know if he doesn't improve. If worsening, don't hesitate to go to ER over the holiday weekend. Lorraine Dong PA-C T [facility] 01-14-2025 Telephone encounter Note Sister Chiki calling in again to ask about results. She has not started pt on the antibiotics yet. Per Lorraine's OV note, it appears she wanted pt to get the antibiotics as soon as he gave a urine sample. Chiki will go get them from the pharmacy and starting giving them to him. She states he is still saying he is hurting and pointing to the same area. She denies any bowel changes, vomiting, or fevers. Still states she doesn't notice any swelling of his male genitalia either. Notified we will contact her once we have the urine culture report back. T [facility] 01-14-2025 Telephone encounter Note Let them know that I don't have all the results back yet. But based on urinalysis he doesn't have any blood. Just a small amount of leuks which may or may not be from infection. . Is there anything new that she can report about his symptoms? Has the location that he points to changed? Any bowel changes, vomiting, fevers Lorraine Dong PA-C [facility] 01-14-2025 Telephone encounter Note Patient's sister Chiki calls and states that patient continues to not feel well. Chiki had brought in urine to have tested yesterday. Latest Ref Rng 01/13/2025 Color Yellow Yellow Clarity Clear Clear Glucose, Urine Negative Negative Bilirubin, Urine Negative Negative Ketones, Urine Negative Negative Specific Castell, Ur 1.005 - 1.030 1.020 Hemoglobin/Blood,Ur Negative Negative pH, Urine 5.0 - 8.0 6.5 Protein, Urine Negative Negative Urobilinogen 0.2-1.0 EU/dL 1.0 EU/dL Nitrites Negative Negative Leukest Negative 1+ ! WBC, Urine 0-5 /HPF 0-5 /HPF RBC, Urine 0-2 /HPF 0-2 /HPF Bacteria Negative /HPF Negative Epithelial Cells /HPF None Seen Hyaline Cast 0 /LPF 1-3 /LPF ! Urine Culture is Still Pending. Please review and advise, Michelle Tijerina RN [facility] 01-12-2025 Note HNO ID: [id number] Author: LORRAINE DONG PA-C Service: ? Author Type: Physician Vector Control Specialist Type: Progress Notes Filed: 01/12/2025 11:23 Note Text: Chief Complaint Patient presents with: UTI: Caregiver reports pt up last night to the bathroom noting hurting down there Pt is unable to give urine specimen. HPI Arvind Domínguez is a 49 year old male who presents here today for Above Complaints.. Dysuria: - Nocturnal onset of dysuria, prompting evaluation. - Arvind Domínguez is non-verbal; history provided by caregiver. - Caregiver reports Arvind was tossing and turning at night, which is unusual behavior. - When asked about discomfort, Arvind indicated pain by grabbing the genital area. - Prior to the visit, Arvind was observed rubbing the bladder area. - Nocturnal enuresis noted. - No history of UTIs. - Denies observed testicular enlargement or penile erythema. - Back pain not observed. - Recent normal bowel movement; denies diarrhea or constipation. Past medical history, appointments, medications, allergies reviewed. Previous Medical History PAST MEDICAL HISTORY Diagnosis Date Autism GERD (gastroesophageal reflux disease) Mental disability Schizophrenia (HCC) Underweight due to inadequate caloric intake Vitamin D deficiency Previous Surgical History No past surgical history on file. Family History No family history on file. Patient Allergies ALLERGIES No Known Allergies Current Medications Current Outpatient Medications on File Prior to Visit Medication Sig levocetirizine (XYZAL) 2.5 mg/5 mL solution Take 5 mg by mouth once daily. ergocalciferol 50,000 unit capsule (VITAMIN D2, DRISDOL) Take 1 capsule by mouth one time a week. ferrous sulfate 220 mg/5 mL elix Take 7.4 mL by mouth once daily. atorvastatin (ATORVALIQ) 20 mg/5 mL (4 mg/mL) suspension Take 5 mL by mouth once daily. KAOPECTATE, ATTAPULGITE, ORAL Take by mouth. Dr Chong Lactobac no.41/Bifidobact no.7 (PROBIOTIC-10 ORAL) Take by mouth. Gummies - Dr. Chong calcium carbonate (CALCIUM ANTACID) 500 mg chew Take 2 tablets by mouth once daily. cyanocobalamin (VITAMIN B-12) 1,000 mcg tab Take 1 tablet by mouth once daily. Takes as a gummie selenium 50 mcg tab Take 1 tablet by mouth once daily. Takes as a gummie Zinc Sulfate 25 mg zinc (110 mg) tab Take 25 tablets by mouth once daily. Takes as a gummie omega-3 DHA-EPA (FISH OIL) 1,200 (144-216) mg capsule Take 1 capsule by mouth daily with breakfast. ascorbic acid, vitamin C, (VITAMIN C) 500 mg tablet Take 1 tablet by mouth once daily. diphenhydrAMINE (BENADRYL) 25 mg capsule Take 1-2 capsules by mouth at bedtime as needed. food supplemt, lactose-reduced (BOOST MEN) 0.08 gram- 0.9 kcal/mL liqd Take 1 Bottle by mouth two times a day before meals. mirtazapine (REMERON) 15 mg tablet Take 15 mg by mouth daily at bedtime. melatonin 10 mg chew Take 1 Each by mouth once daily. pantoprazole DR (PROTONIX) 40 mg tablet Take 1 tablet by mouth once daily. (capsule) fluticasone (FLONASE) 50 mcg/actuation nasal spray Use 1 Casanova in each nostril once daily. OLANZapine orally disintegrating (ZYPREXA ZYDIS) 5 mg disintegrating tablet Take 5 mg by mouth daily at bedtime. Nutritional Supplements (ENSURE PUDDING) pudg Take 113 g by mouth twice daily. clarithromycin (BIAXIN) 250 mg tablet Take by mouth two times a day. Dr Chong (Patient not taking: Reported on 01/12/2025) No current facility-administered medications on file prior to visit. Social History SOCIAL HISTORY[1] Review of Symptoms REVIEW OF SYSTEMS Constitutional: (+) sleep disturbance Respiratory: (-) cough Gastrointestinal: (+) vomiting, (-) diarrhea, (-) constipation, (-) gastroesophageal reflux Genitourinary: (+) suprapubic pain, (-) testicular swelling Musculoskeletal: (-) back pain Skin: (-) penile redness SEE HPI EXAM: BP 122/86 Pulse 82 Temp 36.4 ?C (97.5 ?F) (Oral) Resp 16 Wt 72.1 kg (159 lb) SpO2 96% BMI 22.81 kg/m? General Appearance: Well appearing, alert, in no acute distress, well-hydrated, well nourished.. Lungs: Lungs clear to auscultation. No wheezing, rhonchi, rales.. Heart: RRR without murmur, gallop, or rubs. No ectopy. Abdomen: no obvious pain on exam. BS wnl. Neg CVA tenderness. . Health Maintenance List Depression Screening Never done HIV Screening Never done Colorectal Cancer Screening Never done Medicare Advantage Annual Wellness Visit Never done Hepatitis B Vaccine(3 of 3 - 19+ 3-dose series) due on 10/06/2024 Anxiety Screening due on 08/11/2025 Influenza Vaccine(1) due on 01/18/2025 Diabetes Screening due on 12/19/2027 Lipid Screening due on 08/11/2029 DTaP,Tdap,Td Vaccine(2 - Td or Tdap) due on 03/03/2034 Hepatitis C Screening Completed Data reviewed N/a Assessment and Plan 1. Lower abdominal pain (R10.30) - Acute lower abdominal pain with nocturnal onset; patient nonverbal but pointed (more content not included)... [facility] 01-12-2025 History of Presen t illness Narrative Chief Complaint Patient presents with: UTI: Caregiver reports pt up last night to the bathroom noting hurting down there Pt is unable to give urine specimen. HPI Arvind Domínguez is a 49 year old male who presents here today for Above Complaints.. Dysuria: - Nocturnal onset of dysuria, prompting evaluation. - Arvind Domínguez is non-verbal; history provided by caregiver. - Caregiver reports Arvind was tossing and turning at night, which is unusual behavior. - When asked about discomfort, Arvind indicated pain by grabbing the genital area. - Prior to the visit, Arvind was observed rubbing the bladder area. - Nocturnal enuresis noted. - No history of UTIs. - Denies observed testicular enlargement or penile erythema. - Back pain not observed. - Recent normal bowel movement; denies diarrhea or constipation. Past medical history, appointments, medications, allergies reviewed. Previous Medical History PAST MEDICAL HISTORY Diagnosis Date Autism GERD (gastroesophageal reflux disease) Mental disability Schizophrenia (HCC) Underweight due to inadequate caloric intake Vitamin D deficiency Previous Surgical History No past surgical history on file. Family History No family history on file. Patient Allergies ALLERGIES No Known Allergies Current Medications Current Outpatient Medications on File Prior to Visit Medication Sig levocetirizine (XYZAL) 2.5 mg/5 mL solution Take 5 mg by mouth once daily. ergocalciferol 50,000 unit capsule (VITAMIN D2, DRISDOL) Take 1 capsule by mouth one time a week. ferrous sulfate 220 mg/5 mL elix Take 7.4 mL by mouth once daily. atorvastatin (ATORVALIQ) 20 mg/5 mL (4 mg/mL) suspension Take 5 mL by mouth once daily. KAOPECTATE, ATTAPULGITE, ORAL Take by mouth. Dr Chong Lactobac no.41/Bifidobact no.7 (PROBIOTIC-10 ORAL) Take by mouth. Gummies - Dr. Chong calcium carbonate (CALCIUM ANTACID) 500 mg chew Take 2 tablets by mouth once daily. cyanocobalamin (VITAMIN B-12) 1,000 mcg tab Take 1 tablet by mouth once daily. Takes as a gummie selenium 50 mcg tab Take 1 tablet by mouth once daily. Takes as a gummie Zinc Sulfate 25 mg zinc (110 mg) tab Take 25 tablets by mouth once daily. Takes as a gummie omega-3 DHA-EPA (FISH OIL) 1,200 (144-216) mg capsule Take 1 capsule by mouth daily with breakfast. ascorbic acid, vitamin C, (VITAMIN C) 500 mg tablet Take 1 tablet by mouth once daily. diphenhydrAMINE (BENADRYL) 25 mg capsule Take 1-2 capsules by mouth at bedtime as needed. food supplemt, lactose-reduced (BOOST MEN) 0.08 gram- 0.9 kcal/mL liqd Take 1 Bottle by mouth two times a day before meals. mirtazapine (REMERON) 15 mg tablet Take 15 mg by mouth daily at bedtime. melatonin 10 mg chew Take 1 Each by mouth once daily. pantoprazole DR (PROTONIX) 40 mg tablet Take 1 tablet by mouth once daily. (capsule) fluticasone (FLONASE) 50 mcg/actuation nasal spray Use 1 Casanova in each nostril once daily. OLANZapine orally disintegrating (ZYPREXA ZYDIS) 5 mg disintegrating tablet Take 5 mg by mouth daily at bedtime. Nutritional Supplements (ENSURE PUDDING) pudg Take 113 g by mouth twice daily. clarithromycin (BIAXIN) 250 mg tablet Take by mouth two times a day. Dr Chong (Patient not taking: Reported on 01/12/2025) No current facility-administered medications on file prior to visit. Social History SOCIAL HISTORY[1] Review of Symptoms REVIEW OF SYSTEMS Constitutional: (+) sleep disturbance Respiratory: (-) cough Gastrointestinal: (+) vomiting, (-) diarrhea, (-) constipation, (-) gastroesophageal reflux Genitourinary: (+) suprapubic pain, (-) testicular swelling Musculoskeletal: (-) back pain Skin: (-) penile redness SEE HPI EXAM: BP 122/86 Pulse 82 Temp 36.4 C (97.5 F) (Oral) Resp 16 Wt 72.1 kg (159 lb) SpO2 96% BMI 22.81 kg/m General Appearance: Well appearing, alert, in no acute distress, well-hydrated, well nourished.. Lungs: Lungs clear to auscultation. No wheezing, rhonchi, rales.. Heart: RRR without murmur, gallop, or rubs. No ectopy. Abdomen: no obvious pain on exam. BS wnl. Neg CVA tenderness. . Health Maintenance List Depression Screening Never done HIV Screening Never done Colorectal Cancer Screening Never done Medicare Advantage Annual Wellness Visit Never done Hepatitis B Vaccine(3 of 3 - 19+ 3-dose series) due on 10/06/2024 Anxiety Screening due on 08/11/2025 Influenza Vaccine(1) due on 01/18/2025 Diabetes Screening due on 12/19/2027 Lipid Screening due on 08/11/2029 DTaP,Tdap,Td Vaccine(2 - Td or Tdap) due on 03/03/2034 Hepatitis C Screening Completed Data reviewed N/a Assessment and Plan 1. Lower abdominal pain (R10.30) - Acute lower abdominal pain with nocturnal onset; patient nonverbal but pointed to suprapubic region and demonstrated discomfort. - No dysuria, hematuria, or testicular swelling noted by guardian; no diarrhea or constipation. - Urinalysis ordered; provided urine collection kit for home sample. - Start Keflex 500 mg/10 mL PO BID x 7 days after urine sample obtained. - Advised to monitor for worsening symptoms and seek ER care if condition deteriorates. - genital exam not completed today for patient comfort. however if symptoms continue and culture is negative, would recommend a genital and hernia exam if possible. 2. Autism spectrum disorder without accompanying intellectual impairment, requiring support (level 1) ([facility]) (F84.0) - Nonverbal communication and limited ability to express symptoms complicate assessment. Lorraine Dong PA-C Recording using [email or web address] software for draft documentation of the visit was discussed with the patient/authorized junior sales representative; all questions welcomed and answered. Patient/authorized junior sales representative agreed to proceed [1] Social History Tobacco Use Smoking status: Never Smokeless tobacco: Never Substance Use Topics Alcohol use: Never Drug use: Never documented in this encounter [facility] 12-18-2024 Telephone encounter Note Reason for Call: Chest pain. Per sister patient only wants to lay down and is rubbing his chest. Patient is nonverbal and normally a pacer. Per sister there is no other symptoms and patient cannot tell us anything his vitals are as follows BP 120/83 HR 88 Pulse Ox 92-86% Outcome: Patient advised to go to the Emergency Room now. Patient plans to go to [facility] at this time. Encouraged to rib puller and call 911 if anything worsens or changes in route. Jacki Szymanski RN Reason for Disposition [1] Chest pain (or angina) comes and goes AND [2] is happening more often (increasing in frequency) or getting worse (increasing in severity) (Exception: Chest pains that last only a few seconds.) Protocols used: Chest [id number] [facility] 12-18-2024 Miscellaneous Notes Reason for Call: Chest pain. Per sister patient only wants to lay down and is rubbing his chest. Patient is nonverbal and normally a pacer. Per sister there is no other symptoms and patient cannot tell us anything his vitals are as follows BP 120/83 HR 88 Pulse Ox 92-86% Outcome: Patient advised to go to the Emergency Room now. Patient plans to go to [facility] at this time. Encouraged to rib puller and call 911 if anything worsens or changes in route. Jacki Szymanski RN Reason for Disposition [1] Chest pain (or angina) comes and goes AND [2] is happening more often (increasing in frequency) or getting worse (increasing in severity) (Exception: Chest pains that last only a few seconds.) Protocols used: Chest [id number] documented in this encounter [facility] 12-09-2024 Discharge summary [facility] 12-09-2024 Discharge summary Note Date/Time December 09, 2024 7:42pm [facility] Medical Records Department [address] [place] [address] Emergency Department Summary 12/09/24 MR#: [id number] Acct: [id number] Name: ARVIND DOMÍNGUEZ Rep #:[id number] : 1975 49 From: Marcus Delatorre MD PCP: EB Patel Status:REG ER Location: ED HPI History of Present Illness Chief Complaint: General Illness Narrative Narrative: History and physical limited secondary to autism and schizophrenia. Per python developer and sister who is his legal guardian, over the last week he has had behavioral problems where he was hitting his head against the wall and is more agitated. She states that he has been pulling at his right ear as well but 2 weeks ago she took him to urgent care and they said that there was no evidence of infection. He has not had any fevers. They present him to the emergency department not knowing if this is an exacerbation more of his autism and behavioral change versus something physical. His sister noticed that his urine was dark over the last week, but he has been drinking more fluids and that has cleared up. Essentially, they are presenting him for medical screening. [facility] Medical History Rash Low iron Non-smoker Schizophrenia GERD (gastroesophageal reflux disease) Autism Home Medications ?Medication ?Instructions ?Recorded ?Last Taken ?Type ferrous sulfate 220 mg (44 mg 325.6 mg PO .COMPLEX 12/07/24 History iron)/5 mL oral solution mirtazapine 15 mg disintegrating 15 mg PO DAILY 12/08/24 History tablet esomeprazole magnesium 40 mg 40 mg PO QDAY #30 ea 08/1812/09/24 Rx granules delayed release for susp ascorbic acid (vitamin C) 500 mg 1 g PO DAILY 12/09/24 12/09/24 History chewable tablet (Acerola C) atorvastatin 20 mg/5 mL (4 mg/mL) 20 mg PO DAILY 12/0912/09/24 History oral suspension (AtorvaliQ) calcium citrate 760 mg PO DAILY 12/09/24 History ergocalciferol (vitamin D2) 1,250 1,250 mcg PO QWEEK 0 12/09/24 12/08/24 History mcg (50,000 unit) capsule levocetirizine 2.5 mg/5 mL oral 2.5 mg PO DAILY 12/09/24 History solution (Xyzal) magnesium 250 mg tablet 250 mg PO DAILY 12/09/24 History mecobalamin (vitamin B12) 1,000 1,000 mcg PO DAILY 12/09/24 History mcg chewable tablet olanzapine 15 mg disintegrating 15 mg PO DAILY 5 12/08/24 History tablet pedi nutrition,iron,lact-free 5 1 ea PO DAILY 12/09/24 12/09/24 History gram-180 kcal/36 gram oral powder (Else Toddler Deepwater) Allergy/AdvReac Type Severity Reaction Status Date / Time No Known Allergies Allergy Verified 12/09/24 14:20 Family History Mother Lung cancer Heart disease Father Lung cancer Surgical History History of esophagogastroduodenoscopy (EGD) Social History household members: family Smoking Status: Never smoker ROS ROS ED ROS Narrative Review of systems positive for behavioral change, increased agitation, more aggressive behavior. No fevers or chills, no nausea or vomiting. Dark urine last week but that has resolved. Additionally, complained of ear pain for 2 weeks and tugging at right ear. EXAM Physical Exam Narrative Exam Narrative: Physical exam limited secondary to autism. HEENT examination grossly unremarkable. No pain with movement of right auricle, no TM erythema. No mastoid tenderness or erythema. Neck soft and supple without meningismus. Moist mucous membranes. Cardiovascular examination regular rate and rhythm lungs clear to auscultation bilaterally. Abdomen soft, nontender, with positivebowel sounds. No guarding or rebound. Neurological examination nonfocal, nonlateralizing, consistent with autism. Cooperative. Const Vital Signs: 12/09/24 14:18 12/09/24 15:59 12/09/24 15:59 Temperature 97.9 F 97.8 F Temperature Source Oral Oral Pulse Rate 90 90 Respiratory Rate 16 16 Respiratory Effort Normal Respiratory Pattern Normal Blood Pressure 140/94 H 140/94 H Blood Pressure Mean 109 109 Pulse Ox 98 98 Oxygen Delivery Method Room Air Room Air 12/09/24 16:00 12/09/24 18:00 Temperature 97.8 F Temperature Source Oral Pulse Rate 69 73 Respiratory Rate 15 16 Respiratory Effort Respiratory Pattern Blood Pressure 134/88 H 129/90 H Blood Pressure Mean 103 103 Pulse Ox 97 99 Oxygen Delivery Method Room Air Room Air MDM MDM MDM Narrative Medical decision making narrative: Differential diagnosis includes but not limited to dehydration versus other electrolyte abnormality versus UTI versus anemia versus behavioral problems withhistory of autism and schizophrenia. Will perform medical screening exam/laboratories in the form of CBC with differential and BMP and UA. Patient will be bolused normal saline. I do not feel he requires antibiotics for an otitis media. I reviewed his laboratory work and he has normal white count of 7.6 with hemoglobin normal 13.8, hematocrit 42.3, platelet count normal at 227. BMP shows no evidence of dehydration, sodium normal at 137 with BUN of 14 and creatinine 0.85. Glucose appropriately elevated at 139 with normal anion gap of11. It took a little bit of time for the patient to produce a urine sample. This was sent and there is no evidence of infection with 0-5 WBCs and negative ketones, negative nitrites and negative leukocytes. I do not feel he needs antibiotics. I feel that his reported behavior may be more psychiatric or behavioral problem. His family does state that sometimes younger family membersrequire more attention and that it may be more of a jealousy type situation. Regardless, I do feel that he can be discharged to follow-up with his primary care provider and that he does not require observation or admission or psychiatric evaluation at this time. Return instructions reviewed. Dispositionis discharged home in stable condition. History & Record Review Discussion w/independent historian: Family (Sister and guardian) and Other (Health Information Provider) Lab Data Attestation: I reviewed the patient's lab results. Labs: Laboratory Results - last 24 hr 12/09/24 12/09/24 14:53 17:31 WBC 7.6 RBC 4.98 Hgb 13.8 Hct 42.3 MCV 84.9 MCH 27.7 MCHC 32.6 RDW Std Deviation 41.1 RDW Coeff of Dc 13.2 Plt Count 227 MPV 11.3 Immature Gran % (Auto) 0.400 Neut % (Auto) 70.1 H Lymph % (Auto) 17.7 L [place] % (Auto) 8.0 Eos % (Auto) 3.5 Baso % (Auto) 0.3 Absolute Neuts (auto) 5.3 Absolute Lymphs (auto) 1.35 Nucleated RBC % 0 Sodium 137 Potassium 4.3 Chloride 104 Carbon Dioxide 21.7 Anion Gap 11 BUN 14 Creatinine 0.85 Estim Creat Clear Calc 110.26 Est GFR (MDRD) Non-Af 107 BUN/Creatinine Ratio 16.8 Glucose 139 H Calcium 9.6 Urine Color Straw Urine Clarity Clear Urine pH 7.0 Ur Specific Castell 1.005 Urine Protein Negative Urine Glucose (UA) Normal Urine Ketones Negative Urine Occult Blood Negative Urine Nitrite Negative Urine Bilirubin Negative Urine Urobilinogen Normal Ur Leukocyte Esterase Negative Urine RBC 0-5 SEEN Urine WBC 0-5 SEEN Ur Squamous Epith Cells 0-5 SEEN Urine Bacteria 0 SEEN Urine Mucus 0 SEEN Discharge Plan Triage Chief Complaint: General Illness ED Provider: Marcus Delatorre Dx/Rx/DC Orders Clinical Impression: Autism, Agitation, Aggressive behavior, Encounter for medical screening examination Instructions: How to Control Your Temper, ED Screening Exam Medical Nonurgent Prescriptions: No Action mirtazapine 15 mg tablet,disintegrating 15 mg PO DAILY Patient Comments: DISSOLVE 1 (ONE) TABLET ON TOP OF TONGUE, THEN SWALLOW IN THE EVENING BEFORE SLEEP ferrous sulfate 220 mg (44 mg iron)/5 mL solution 325.6 mg PO .COMPLEX Rx Instructions: 325.6 mg orally 3XW; ergocalciferol (vitamin D2) 1,250 mcg (50,000 unit) capsule 1,250 mcg PO QWEEK olanzapine 15 mg tablet,disintegrating 15 mg PO DAILY AtorvaliQ 20 mg/5 mL (4 mg/mL) suspension 20 mg PO DAILY Patient Comments: [NO ORIGINAL SIG] ascorbic acid (vitamin C) [Acerola C] 500 mg tablet,chewable 1 g PO DAILY Else Toddler Deepwater 5 gram-180 kcal/36 gram powder 1 ea PO DAILY levocetirizine [Xyzal] 2.5 mg/5 mL solution 2.5 mg PO DAILY mecobalamin (vitamin B12) 1,000 mcg tablet,chewable 1,000 mcg PO DAILY magnesium 250 mg tablet 250 mg PO DAILY calcium citrate 760 mg calcium /3.5 gram granules 760 mg PO DAILY esomeprazole magnesium [address] for susp in packet 40 mg PO QDAY Qty: 30 1RF Primary Care Provider: Niraj Andino Referrals: Niraj Andino NP-C [Primary Care Provider] - As soon as possible Activity Restrictions/Additional Instructions: Follow-up with your primary care provider soon as possible. Return with new or worsening symptoms. Your laboratory tests and urinalysis were negative today. His aggressive behavior may be more secondary to a psychiatric or behavioral problem. Print Language: Ukrainian Disposition Disposition: Home, Self Care What to do if you have Problems For any increased pain, shortness of breath, bleeding, nausea or vomiting, chestpain, or any unexpected problems, contact your Primary Care Provider. Call [facility] ([phone]) or report to the closest Emergency Room. Call 911 if necessary. 12/09/241941 <Electronically signed by Marcus Delatorre MD> Cosigner Signature (if applicable): CC: EB Andino ~ Signed [facility] Work Phone: [phone] 769-828106-30-2025 NoteHNO ID: [id number] Author: ALIZE VILLA APRN.UTILITY ENGINEER Service: ? Author Type: Nurse Practitioner Type: Progress Notes Filed: 11/16/2024 15:25 Note Text: [facility] Subjective Arvind Domínguez is a 49 year old male. Patient presents with: Ear Pain Ear Pain Pertinent negatives include no fatigue or fever. Patient is a 49 year old male with limited language do to his autism. His sister is with him and He has complained about his left ear and is constantly sticking his fingers in it. No fevers, still eating and drinking within normal limits. They have gone and seen ENT at [facility] where has significant hearing loss in that left ear. Review of Systems Constitutional: Negative for activity change, appetite change, fatigue and fever. HENT: Positive for ear pain. Negative for ear discharge. Objective BP 110/72 Pulse 86 Temp 36.2 ?C (97.2 ?F) Resp 16 Wt 72.7 kg (160 lb 4.4 oz) SpO2 97% BMI 23.00 kg/m? PAST MEDICAL HISTORY Diagnosis Date Autism GERD (gastroesophageal reflux disease) Mental disability Schizophrenia (HCC) Underweight due to inadequate caloric intake Vitamin D deficiency No past surgical history on file. ALLERGIES Patient has no known allergies. MEDICATIONS levocetirizine (XYZAL) 2.5 mg/5 mL solution Take 5 mg by mouth once daily. ergocalciferol 50,000 unit capsule (VITAMIN D2, DRISDOL) Take 1 capsule by mouth one time a week. ferrous sulfate 220 mg/5 mL elix Take 7.4 mL by mouth once daily. atorvastatin (ATORVALIQ) 20 mg/5 mL (4 mg/mL) suspension Take 5 mL by mouth once daily. clarithromycin (BIAXIN) 250 mg tablet Take by mouth two times a day. Dr Chong KAOPECTATE, ATTAPULGITE, ORAL Take by mouth. Dr Chong Lactobac no.41/Bifidobact no.7 (PROBIOTIC-10 ORAL) Take by mouth. Gummies - Dr. Chong calcium carbonate (CALCIUM ANTACID) 500 mg chew Take 2 tablets by mouth once daily. cyanocobalamin (VITAMIN B-12) 1,000 mcg tab Take 1 tablet by mouth once daily. Takes as a gummie selenium 50 mcg tab Take 1 tablet by mouth once daily. Takes as a gummie Zinc Sulfate 25 mg zinc (110 mg) tab Take 25 tablets by mouth once daily. Takes as a gummie omega-3 DHA-EPA (FISH OIL) 1,200 (144-216) mg capsule Take 1 capsule by mouth daily with breakfast. ascorbic acid, vitamin C, (VITAMIN C) 500 mg tablet Take 1 tablet by mouth once daily. diphenhydrAMINE (BENADRYL) 25 mg capsule Take 1-2 capsules by mouth at bedtime as needed. food supplemt, lactose-reduced (BOOST MEN) 0.08 gram- 0.9 kcal/mL liqd Take 1 Bottle by mouth two times a day before meals. mirtazapine (REMERON) 15 mg tablet Take 15 mg by mouth daily at bedtime. melatonin 10 mg chew Take 1 Each by mouth once daily. pantoprazole DR (PROTONIX) 40 mg tablet Take 1 tablet by mouth once daily. (capsule) fluticasone (FLONASE) 50 mcg/actuation nasal spray Use 1 Casanova in each nostril once daily. OLANZapine orally disintegrating (ZYPREXA ZYDIS) 5 mg disintegrating tablet Take 5 mg by mouth daily at bedtime. Nutritional Supplements (ENSURE PUDDING) pudg Take 113 g by mouth twice daily. No family history on file. Social History Tobacco Use Smoking status: Never Smokeless tobacco: Never Substance Use Topics Alcohol use: Never Drug use: Never Physical Exam Vitals and nursing note reviewed. Constitutional: General: He is not in acute distress. Appearance: Normal appearance. He is normal weight. He is not toxic-appearing. HENT: Head: Atraumatic. No contusion, right periorbital erythema or left periorbital erythema. Salivary Glands: Right salivary gland is not diffusely enlarged or tender. Left salivary gland is not diffusely enlarged or tender. Right Ear: Tympanic membrane, ear canal and external ear normal. Left Ear: Tympanic membrane, ear canal and external ear normal. No drainage, swelling or tenderness. No middle ear effusion. There is no impacted cerumen. Eyes: Conjunctiva/sclera: Right eye: Right conjunctiva is not injected. No chemosis, exudate or hemorrhage. Left eye: Left conjunctiva is not injected. No chemosis, exudate or hemorrhage. Neurological: Mental Status: He is alert. {ASSESSMENT/PLAN: 1. Otalgia of left ear - ICD9: 388.70, ICD10: H92.02 - No signs of infection today. Follow up with ENT verse primary care if symptoms persist. Alize Villa APRN.[facility] patient well-appearing nontoxic in no acute distress 49-year-old male who is autistic mainly nonverbal presents with his sister. No concerns of ear infection such as perichondritis, otitis media, otitis externa or rupture tympanic membrane follow-up with ENT versus PCP if symptoms persist she sister verbalized understanding agreement this plan.[facility] 11-16-2024 History of Present illness Narrative* Alize Villa APRN.UTILITY ENGINEER - 11/16/2024 2:34 PM EDT [facility] Subjective Arvind Domínguez is a 49 year old male. Patient presents with: Ear Pain Ear Pain Pertinent negatives include no fatigue or fever. Patient is a 49 year old male with limited language do to his autism. His sister is with him and Hehas complained about his left ear and is constantly sticking his fingers in it. No fevers, still eating and drinking within normal limits. They have gone and seen ENT at [facility] where has significant hearing loss in that left ear. Review of Systems Constitutional: Negative for activity change, appetite change, fatigue and fever. HENT: Positive for ear pain. Negative for ear discharge. Objective BP 110/72 Pulse 86 Temp 36.2 C (97.2 F) Resp 16 Wt 72.7 kg (160 lb 4.4 oz) SpO2 97% BMI23.00 kg/m PAST MEDICAL HISTORY Diagnosis Date Autism GERD (gastroesophageal reflux disease) Mental disability Schizophrenia (HCC) Underweight due to inadequate caloric intake Vitamin D deficiency No past surgical history on file. ALLERGIES Patient has no known allergies. MEDICATIONS levocetirizine (XYZAL) 2.5 mg/5 mL solution Take 5 mg by mouth once daily. ergocalciferol 50,000 unit capsule (VITAMIN D2, DRISDOL) Take 1 capsule by mouth one time a week. ferrous sulfate 220 mg/5 mL elix Take 7.4 mL by mouth once daily. atorvastatin (ATORVALIQ) 20 mg/5 mL (4 mg/mL) suspension Take 5 mL by mouth once daily. clarithromycin (BIAXIN) 250 mg tablet Take by mouth two times a day. Dr Arlette GUTIERREZCTKAMILA, ATTAPULGITE, ORAL Take by mouth. Dr Chong Lactobac no.41/Bifidobact no.7 (PROBIOTIC-10 ORAL) Take by mouth. Carlomicaterina - . Friend calcium carbonate (CALCIUM ANTACID) 500 mg chew Take 2 tablets by mouth once daily. cyanocobalamin (VITAMIN B-12) 1,000 mcg tab Take 1 tablet by mouth once daily. Takes as a gummie selenium 50 mcg tab Take 1 tablet by mouth once daily. Takes as a gummie Zinc Sulfate 25 mg zinc (110 mg) tab Take 25 tablets by mouth once daily. Takes as a gummie omega-3 DHA-EPA (FISH OIL) 1,200 (144-216) mg capsule Take 1 capsule by mouth daily with breakfast. ascorbic acid, vitamin C, (VITAMIN C) 500 mg tablet Take 1 tablet by mouth once daily. diphenhydrAMINE (BENADRYL) 25 mg capsule Take 1-2 capsules by mouth at bedtime as needed. food supplemt, lactose-reduced (BOOST MEN) 0.08 gram- 0.9 kcal/mL liqd Take 1 Bottle by mouth two times a day before meals. mirtazapine (REMERON) 15 mg tablet Take 15 mg by mouth daily at bedtime. melatonin 10 mg chew Take 1 Each by mouth once daily. pantoprazole DR (PROTONIX) 40 mg tablet Take 1 tablet by mouth once daily. (capsule) fluticasone (FLONASE) 50 mcg/actuation nasal spray Use 1 Casanova in each nostril once daily. OLANZapine orally disintegrating (ZYPREXA ZYDIS) 5 mg disintegrating tablet Take 5 mg by mouth daily at bedtime. Nutritional Supplements (ENSURE PUDDING) pudg Take 113 g by mouth twice daily. No family history on file. Social History Tobacco Use Smoking status: Never Smokeless tobacco: Never Substance Use Topics Alcohol use: Never Drug use: Never Physical Exam Vitals and nursing note reviewed. Constitutional: General: He is not in acute distress. Appearance: Normal appearance. He is normal weight. He is not toxic-appearing. HENT: Head: Atraumatic. No contusion, right periorbital erythema or left periorbital erythema. Salivary Glands: Right salivary gland is not diffusely enlarged or tender. Left salivary gland is not diffusely enlarged or tender. Right Ear: Tympanic membrane, ear canal and external ear normal. Left Ear: Tympanic membrane, ear canal and external ear normal. No drainage, swelling or tenderness. No middle ear effusion. There is no impacted cerumen. Eyes: Conjunctiva/sclera: Right eye: Right conjunctiva is not injected. No chemosis, exudate or hemorrhage. Left eye: Left conjunctiva is not injected. No chemosis, exudate or hemorrhage. Neurological: Mental Status: He is alert. {ASSESSMENT/PLAN: 1. Otalgia of left ear - ICD9: 388.70, ICD10: H92.02 - No signs of infection today. Follow up with ENT verse primary care if symptoms persist. Alize Villa APRN.UTILITY ENGINEER [facility] patient well-appearing nontoxic in no acute distress 49-year-old male who is autistic mainly nonverbal presents with his sister. No concerns of ear infection such as perichondritis, otitis media,otitis externa or rupture tympanic membrane follow-up with ENT versus PCP if symptoms persist she sister verbalized understanding agreement this plan. [facility] NoteHNO ID: [id number] Author: NIRAJ ANDINO APRN.JOSHUA Service: ? Author Type: Nurse Practitioner Type: Progress Notes Filed: 10/02/2024 11:39 Note Text: Chief Complaint Patient presents with: Cough Allergies: Sneezing HPI Arvind Domínguez is a 49 year old male who presents here today for Above Complaints.. Cough and Sneezing: - Increased coughing and sneezing. - Denies fever or abnormal behavior. - Difficulty drinking fluids, but this is not new. Hearing Loss: [facility] profound hearing loss noted, needs referral to ENT for hearing aids. Past medical history, appointments, medications, allergies reviewed. Previous Medical History PAST MEDICAL HISTORY Diagnosis Date Autism GERD (gastroesophageal reflux disease) Mental disability Schizophrenia (HCC) Underweight due to inadequate caloric intake Vitamin D deficiency Previous Surgical History No past surgical history on file. Family History No family history on file. Patient Allergies ALLERGIES No Known Allergies Current Medications Current Outpatient Medications on File Prior to Visit Medication Sig ergocalciferol 50,000 unit capsule (VITAMIN D2, DRISDOL) Take 1 capsule by mouth one time a week. ferrous sulfate 220 mg/5 mL elix Take 7.4 mL by mouth once daily. atorvastatin (ATORVALIQ) 20 mg/5 mL (4 mg/mL) suspension Take 5 mL by mouth once daily. clarithromycin (BIAXIN) 250 mg tablet Take by mouth two times a day. Dr Chong amoxicillin (AMOXIL) 250 mg/5 mL suspension Take by mouth three times a day. Dr Chong KAOPECTATE, ATTAPULGITE, ORAL Take by mouth. Dr Chong Lactobac no.41/Bifidobact no.7 (PROBIOTIC-10 ORAL) Take by mouth. Gummies - Dr. Chong cetirizine HCl (ZYRTEC) 10 mg chewable tablet Take 1 tablet by mouth once daily. calcium carbonate (CALCIUM ANTACID) 500 mg chew Take 2 tablets by mouth once daily. cyanocobalamin (VITAMIN B-12) 1,000 mcg tab Take 1 tablet by mouth once daily. Takes as a gummie selenium 50 mcg tab Take 1 tablet by mouth once daily. Takes as a gummie Zinc Sulfate 25 mg zinc (110 mg) tab Take 25 tablets by mouth once daily. Takes as a gummie omega-3 DHA-EPA (FISH OIL) 1,200 (144-216) mg capsule Take 1 capsule by mouth daily with breakfast. ascorbic acid, vitamin C, (VITAMIN C) 500 mg tablet Take 1 tablet by mouth once daily. diphenhydrAMINE (BENADRYL) 25 mg capsule Take 1-2 capsules by mouth at bedtime as needed. food supplemt, lactose-reduced (BOOST MEN) 0.08 gram- 0.9 kcal/mL liqd Take 1 Bottle by mouth two times a day before meals. mirtazapine (REMERON) 15 mg tablet Take 15 mg by mouth daily at bedtime. melatonin 10 mg chew Take 1 Each by mouth once daily. pantoprazole DR (PROTONIX) 40 mg tablet Take 1 tablet by mouth once daily. (capsule) fluticasone (FLONASE) 50 mcg/actuation nasal spray Use 1 Casanova in each nostril once daily. loratadine 10 mg dissolvable tablet Take 10 mg by mouth once daily. OLANZapine orally disintegrating (ZYPREXA ZYDIS) 5 mg disintegrating tablet Take 5 mg by mouth daily at bedtime. Nutritional Supplements (ENSURE PUDDING) pudg Take 113 g by mouth twice daily. No current facility-administered medications on file prior to visit. Social History Social History Tobacco Use Smoking status: Never Smokeless tobacco: Never Substance Use Topics Alcohol use: Never Drug use: Never Review of Symptoms REVIEW OF SYSTEMS SEE HPI EXAM: BP 126/84 Pulse 94 Wt 72 kg (158 lb 11.7 oz) SpO2 97% BMI 22.78 kg/m? General Appearance: Well appearing, alert, in no acute distress, well-hydrated, well nourished.. Nose/Sinuses: Nares normal, septum midline, mucosa normal, no drainage or sinus tenderness. Oropharynx: Lips, mucosa, and tongue normal, teeth and gums normal, oropharynx normal. Lungs: Lungs clear to auscultation. No wheezing, rhonchi, rales.. Heart: RRR without murmur, gallop, or rubs. No ectopy. Health Maintenance List Depression Screening Never done HIV Screening Never done Colorectal Cancer Screening Never done Covid-19 Vaccine(2023- season) Never done Hepatitis B Vaccine(3 of 3 - 19+ 3-dose series) due on 10/06/2024 Anxiety Screening due on 08/11/2025 Diabetes Screening due on 08/12/2027 Lipid Screening due on 08/11/2029 DTaP,Tdap,Td Vaccine(2 - Td or Tdap) due on 03/03/2034 Influenza Vaccine Completed Hepatitis C Screening Completed ASSESSMENT/PLAN: 1. Hearing aid consultation - ICD9: V65.49, ICD10: Z71.89 (primary diagnosis) - CONSULT TO ENT 2. Seasonal allergies - ICD9: 477.9, ICD10: J30.2 - Stop claritin and zyrtec - LEVOCETIRIZINE 2.5 MG/5 ML ORAL SOLUTION Niraj Andino APRN.[facility]2025 History of Present illness Narrative* Niraj Andino APRN.UTILITY ENGINEER - 10/02/2024 11:28 AM EDT Chief Complaint Patient presents with: Cough Allergies: Sneezing HPI Arvind Domínguez is a 49 year old male who presents here today for Above Complaints.. Cough and Sneezing: - Increased coughing and sneezing. - Denies fever or abnormal behavior. - Difficulty drinking fluids, but this is not new. Hearing Loss: [facility] profound hearing loss noted, needs referral to ENT for hearing aids. Past medical history, appointments, medications, allergies reviewed. Previous Medical History PAST MEDICAL HISTORY Diagnosis Date Autism GERD (gastroesophageal reflux disease) Mental disability Schizophrenia (HCC) Underweight due to inadequate caloric intake Vitamin D deficiency Previous Surgical History No past surgical history on file. Family History No family history on file. Patient Allergies ALLERGIES No Known Allergies Current Medications Current Outpatient Medications on File Prior to Visit Medication Sig ergocalciferol 50,000 unit capsule (VITAMIN D2, DRISDOL) Take 1 capsule by mouth one time a week. ferrous sulfate 220 mg/5 mL elix Take 7.4 mL by mouth once daily. atorvastatin (ATORVALIQ) 20 mg/5 mL (4 mg/mL) suspension Take 5 mL by mouth once daily. clarithromycin (BIAXIN) 250 mg tablet Take by mouth two times a day. Dr Chong amoxicillin (AMOXIL) 250 mg/5 mL suspension Take by mouth three times a day. Dr Chong KAOPECTATE, ATTAPULGITE, ORAL Take by mouth. Dr Chong Lactobac no.41/Bifidobact no.7 (PROBIOTIC-10 ORAL) Take by mouth. Gummies - Dr. Chong cetirizine HCl (ZYRTEC) 10 mg chewable tablet Take 1 tablet by mouth once daily. calcium carbonate (CALCIUM ANTACID) 500 mg chew Take 2 tablets by mouth once daily. cyanocobalamin (VITAMIN B-12) 1,000 mcg tab Take 1 tablet by mouth once daily. Takes as a gummie selenium 50 mcg tab Take 1 tablet by mouth once daily. Takes as a gummie Zinc Sulfate 25 mg zinc (110 mg) tab Take 25 tablets by mouth once daily. Takes as a gummie omega-3 DHA-EPA (FISH OIL) 1,200 (144-216) mg capsule Take 1 capsule by mouth daily with breakfast. ascorbic acid, vitamin C, (VITAMIN C) 500 mg tablet Take 1 tablet by mouth once daily. diphenhydrAMINE (BENADRYL) 25 mg capsule Take 1-2 capsules by mouth at bedtime as needed. food supplemt, lactose-reduced (BOOST MEN) 0.08 gram- 0.9 kcal/mL liqd Take 1 Bottle by mouth two times a day before meals. mirtazapine (REMERON) 15 mg tablet Take 15 mg by mouth daily at bedtime. melatonin 10 mg chew Take 1 Each by mouth once daily. pantoprazole DR (PROTONIX) 40 mg tablet Take 1 tablet by mouth once daily. (capsule) fluticasone (FLONASE) 50 mcg/actuation nasal spray Use 1 Casanova in each nostril once daily. loratadine 10 mg dissolvable tablet Take 10 mg by mouth once daily. OLANZapine orally disintegrating (ZYPREXA ZYDIS) 5 mg disintegrating tablet Take 5 mg by mouth daily at bedtime. Nutritional Supplements (ENSURE PUDDING) pudg Take 113 g by mouth twice daily. No current facility-administered medications on file prior to visit. Social History Social History Tobacco Use Smoking status: Never Smokeless tobacco: Never Substance Use Topics Alcohol use: Never Drug use: Never Review of Symptoms REVIEW OF SYSTEMS SEE HPI EXAM: BP 126/84 Pulse 94 Wt 72 kg (158 lb 11.7 oz) SpO2 97% BMI 22.78 kg/m General Appearance: Well appearing, alert, in no acute distress, well-hydrated, well nourished.. Nose/Sinuses: Nares normal, septum midline, mucosa normal, no drainage or sinus tenderness. Oropharynx: Lips, mucosa, and tongue normal, teeth and gums normal, oropharynx normal. Lungs: Lungs clear to auscultation. No wheezing, rhonchi, rales.. Heart: RRR without murmur, gallop, or rubs. No ectopy. Health Maintenance List Depression Screening Never done HIV Screening Never done Colorectal Cancer Screening Never done Covid-19 Vaccine( season) Never done Hepatitis B Vaccine(3 of 3 - 19+ 3-dose series) due on 10/06/2024 Anxiety Screening due on 08/11/2025 Diabetes Screening due on 08/12/2027 Lipid Screening due on 08/11/2029 DTaP,Tdap,Td Vaccine(2 - Td or Tdap) due on 03/03/2034 Influenza Vaccine Completed Hepatitis C Screening Completed ASSESSMENT/PLAN: 1. Hearing aid consultation - ICD9: V65.49, ICD10: Z71.89 (primary diagnosis) - CONSULT TO ENT 2. Seasonal allergies - ICD9: 477.9, ICD10: J30.2 - Stop claritin and zyrtec - LEVOCETIRIZINE 2.5 MG/5 ML ORAL SOLUTION Niraj Andino APRN.UTILITY ENGINEER documented [facility] encounterA[facility] Telephone encounter Note * Telephone Encounter - Holley Bashir MA - 10/01/2024 5:11 PM EDT Chiki notified and verbalized understanding esophoria [facility] Miscellaneous Notes* Telephone Encounter - Holley Bashir MA - 10/01/2024 5:11 PM EDT Chiki notified and verbalized understanding esophoria * Telephone Encounter - Niraj Andino APRN.CNP - 10/01/2024 9:48 AM EDT FIB-4 Calculation: 1.43 at 08/11/2024 4:24 PM Calculated from: SGOT/AST: 50 U/L at 08/11/2024 4:24 PM SGPT/ALT: 64 U/L at 08/11/2024 4:24 PM Platelets: 210 k/uL at 08/11/2024 4:24 PM Age: 49 years Please let patient's sister know his US shows fatty liver disease. We will continue to monitor labsand if they worsen can refer to GI. documented in this encounterA[facility] Hospital05-[facility]-2025 Telephone encounter Note * Telephone Encounter - Niraj Andino APRN.CNP - 10/01/2024 9:48 AM EDT FIB-4 Calculation: 1.43 at 08/11/2024 4:24 PM Calculated from: SGOT/AST: 50 U/L at 08/11/2024 4:24 PM SGPT/ALT: 64 U/L at 08/11/2024 4:24 PM Platelets: 210 k/uL at 08/11/2024 4:24 PM Age: 49 years Please let patient's sister know his US shows fatty liver disease. We will continue to monitor labsand if they worsen can refer to GI. [facility] History of Present illness Narrative* Jesi Kern RDMS - 09/30/2024 1:00 PM EDT Radiology Service Progress Note PATIENT NAME: Arvind Domínguez DATE OF SERVICE: September 30, 2024 TIME: 2:12 PM PATIENT IDENTITY VERIFICATION COMPLETED USING TWO (2) IDENTIFIERS: Name and Date of confirmedby patient verbally. FALL SCREENING: Has the patient had 2 falls in the last year or 1 fall with injury or currently using an Ambulatory Assistive Device (Walker, Cane, Wheelchair, Crutches, etc.)? No PATIENT GENDER DATA: Assigned male at PATIENT RELEVANT IMPLANT DATA REVIEWED: Not Applicable PATIENT PRESENTS WITH AN IMPLANTABLE OR ATTACHED PILEDRIVER CARPENTER: No RADIOLOGY DEPARTMENT: Ultrasound PERIPHERAL IV DATA: Not applicable SIGNED BY: Jesi Kern RDMS September 30, 2024 2:12 PM documented in this encounterAultman Hospital05-14-2025 NoteHNO ID: [id number] Author: JESI KERN RDMS Service: ? Author Type: Credit Reference Clerk Type: Progress Notes Filed: 09/30/2024 14:12 Note Text: Radiology Service Progress Note PATIENT NAME: Arvind Domínguez DATE OF SERVICE: September 30, 2024 TIME: 2:12 PM PATIENT IDENTITY VERIFICATION COMPLETED USING TWO (2) IDENTIFIERS: Name and Date of confirmed by patient verbally. FALL SCREENING: Has the patient had 2 falls in the last year or 1 fall with injury or currently using an Ambulatory Assistive Device (Walker, Cane, Wheelchair, Crutches, etc.)? No PATIENT GENDER DATA: Assigned male at PATIENT RELEVANT IMPLANT DATA REVIEWED: Not Applicable PATIENT PRESENTS WITH AN IMPLANTABLE OR ATTACHED PILEDRIVER CARPENTER: No RADIOLOGY DEPARTMENT: Ultrasound PERIPHERAL IV DATA: Not applicable SIGNED BY: Jesi Kern RDMS September 30, 2024 2:12 [facility]05-13-2025 History of Present illness Narrative* Sangita Celestin, FLOOR COVERING CONTRACTOR-UTILITY ENGINEER - 09/29/2024 3:00 PM EDT Images from the original note were not included. Office Visit Note - 09/29/2024 Patient: ARVIND DOMÍNGUEZ CC: Chief Complaint Patient presents with New Patient Cc: Pt presents for hearing loss on left side. HPI: Mr. Arvind Domínguez is a 49 y.o. male presenting to the [facility] Department of Otolaryngology for evaluation of left ear hearing loss. Sister present for the visit. Provides history, patient non-verbal. He is bothered by loud noises and can become agitated by loud sounds. At times is irritable when hecannot hear well. There was a question about where his true thresholds were. His mother in September 2022, and his sister who is present with him today received him on 10/14/22. Older brother has MS and was no longer able to take care of him. She is still learning abouthim. Does not have much historical information. Has severe autism. Was born prematurely. Repeats language. Cannot carry on a conversation. Lack of eye contact. Question of schizophrenia. He sticks his fingers in his ears. Some pulling of the ears. Has had several ear infections; about 4 since 2022. Had had ears irrigated a few times. Denies imbalance and vertigo. History of Ear Surgery? Not that his sister is aware of Recent or hx of head trauma? No Family hx of hearing loss? Aunt with hearing loss The past medical history, past surgical history, family history, social history, medications, allergies, and review of systems were reviewed today and are documented in AG[facility] &/or a scanned document completed by the patient (or guardian). Allergies: No Known Allergies (disclaimer: This list is only as current as the patient's awareness of his own medical history) Medications: Current Outpatient Medications Medication Sig cetirizine 10 MG Chew Tab Chew 1 tablet daily. Cholecalciferol (Vitamin D3) 25 MCG (1000 UT) capsule daily. Dicyclomine 20 MG tablet TAKE 1 TABLET BY MOUTH TWICE DAILY NEEDED FOR ABDOMINAL PAIN Escitalopram Oxalate 5 MG/5ML Solution Take 5 (FIVE) Milliliter By mouth once daily M-Dryl 12.5 MG/5ML solution TAKE 10-20ML AT BEDTIME NEEDED (disclaimer: This list is only as current as the patient's awareness of his own medical history) Physical Exam: General Pulse 64 Ht 1.854 m (6' 1) Wt 72.6 kg (160 lb) SpO2 98% BMI 21.11 kg/m Smoking Status Never General: Well-developed, well-nourished Communication and Voice: Non-verbal Head and Face Inspection: Normocephalic and atraumatic without masses or lesions Facial Strength: Facial motility symmetric and full bilaterally Left - House-Brackman Grade 1/6 Right - House-Brackman Grade 1/6 ENT NECK: Normal symmetry and overall appearance as well as tracheal position Respiratory Respiratory effort: Breathing comfortably. No stridor Eyes Nystagmus: None Neuro/Psych/Balance Affect: No eye contact Gait: Intact with no imbalance Cranial nerves: II-XII are intact Ear Pinna: Left - External ear intact and fully developed Right - External ear intact and fully developed External canal: Left - Canal is patent with intact skin Right - Canal is patent with intact skin Tympanic Membranes: Left - Clear and mobile Right - Clear and mobile Middle Ears: Left - Aerated, no effusion, no masses Right - Aerated, no effusion, no masses Due to patient's complaints, it was medically necessary to perform otologic examination using binocular microscopy. Procedure Note: Diagnosis: Asymmetric SNHL Procedure: Bilateral Otologic Binocular Microscopy Anesthesia: None Indications and Consent: The patient is a 49 y.o. male who presents for bilateral otologic binocular microscopy. Prior to the procedure, the benefits and risks of otologic microscopy were discussed with the patient (and/or the consenting guardian), including but not limited to bleeding, infection, injury to skin of the ear canal, and the need for further procedure(s). The patient (guardian) understood and wished to proceed. Procedure/Findings: The right external auditory canal was visualized using the operating microscope. Findings are as documented in the physical exam portion of this note. A similar procedure was then performed on the left ear, and findings are documented in the physicalexam portion of this note. EBL: None Complications: None Medical Decision Making: Data Reviewed Audiogram: [facility] and outside Medical Records were reviewed and were consistent with history documented in the HPI. Impression: Asymmetric SNHL SNHL, left Developmental disability Plan: Patient presented on 08/27/24 for an audiogram, however thresholds were questionable. He has a hx of developmental delay and is non-verbal. Sister provides history. He is now living with his sister, who received him after their mother's passing in September 2022. She is unsure his history as she was not involved in his care prior to 2022. Completed ABR today. Reports some pulling and picking of the ears. Results reviewed and explained normal to borderline normal hearing on the right with likely moderate to profound SNHL on the left. Ear exam normal bilaterally. MRI IAC deferred due to testing limitations (patient cannot tolerate loud sounds; unable to tolerate testing environment). Could consider CT temporal bones, however denies imbalance, vertigo, dizziness. Will defer for now. He could benefit from a trial of a left hearing aid, however does not meet Medicaid criteria at this time. Provided copy of today's testing. Follow up: prn for hearing changes Kacy Celestin DNP, FLOOR COVERING CONTRACTOR-UTILITY ENGINEER [facility] Department of Otolaryngology Division of Otology Eye and Ear [place] [address] [place] [address] Phone: [phone] documented in this encounterOhioHealth [facility] History of Present illness Narrative* Brent Disla - 09/29/2024 12:00 PM EDT Images from the original note were not included. Auditory Brainstem Response Threshold Search Impressions: Tone burst threshold search ABR results obtained today suggest: Left: A ttkspnoy-te-rnqfzsub hearing loss within but not necessarily limited to the range of 500-4000 Hz. Right: Normal to borderline-normal hearing within but not necessarily limited to the range of 500-2000 Hz Note: Although tone burst ABR wave V thresholds usually correlate with pure tone hearing thresholdswhen auditory neural pathway function is normal, ABRs assess auditory neural pathway function through the auditory brainstem and not actual hearing sensitivity. Therefore, today's testing does not not rule out greater hearing loss than these results suggest caused by higher level (cortical) auditory pathway dysfunction or central deafness. 2. The patient may benefit from monaural left hearing aid use or CROS use if medically cleared and able to tolerate them.. Based on today's results he does not appear to meet criteria to obtain a hearing aid through Medicaid. ICD-10-CM 1. Hearing loss of left ear, unspecified hearing loss type H91.92 Recommendations: 1. Consult with Kacy Celestin DNP FLOOR COVERING CONTRACTOR-UTILITY ENGINEER 2. Further hbxb-ji-bpphdu testing as needed re: hearing asymmetry, poorer left 3. Hearing aid evaluation/trial 4. Use of good listening/communication strategies, preferential seating, and hearing assistive technologies, which we discussed with the patient's sister. 5. Re-evaluation as ordered. Background and Reason for Testing: The patient is a 49 year old man seen for testing due to undertermined auditory status. The patient's sister, Chiki Gill, who accompanied him today, denied any signsof patient hearing or health status change , ear infection, ear drainage, ear pain, or dizziness.since last visit 08/28/23 From audiometric evaluation 08/27/24: The patient, who was accompanied by his sister Chiki Gill, was seen for an audiologic evaluation. She took over guardianship of Etienne in 2022, and does not know about his history prior to 2022. The patient is non-verbal. His sister reports that he has difficulty hearing some noises. He is tugging at his ears and touching his ears, but his sister is unsure if this is ear pain. He had a recent ear infection a few months ago in the right ear. They occur ~4-5 months, and they are treated with antibiotics. He does not tolerate eardrops. He has had his ear irrigated before. He is not showing signs of dizziness. There is no family history of hearing loss. History of past ear surgeries is unknown. History of noise exposure is unknown Minimal responses for speech: 20 dB R, 90 dB L (unmasked) DPOAEs: Present 1.5-6 kHz R, absent 1-6 kHz L Tympanograms: Type A bilaterally Stapedial reflexes: Partially present probe R, absent probe L Results: Tone Burst Threshold Search ABR: Wave V was present down to stimulus intensities consistent with: Left: A eyesddaz-oz-eanoclsu hearing loss within but not necessarily limited to the range of 500-4000 Hz. Right: Normal to borderline-normal hearing within but not necessarily limited to the range of 500-2000 Hz See the test data showing estimated hearing threshold levels below and responses scanned under the Procedures and Media tabs in the Chart Review section of [facility] Checo Disla, CARLOS-A Legal Services Manager Brent rPakash, CARLOS-A Department of Otolaryngology-Head and Neck Surgery [address] [place] [address], [address] [place] [address] documented in this encounterOSJ.W. [facility]05-02-[facility] Telephone encounter Note* Telephone Encounter - Holley Bashir MA - 09/18/2024 12:01 PM EDT Chiki notified and verbalized understanding Holley Bashir MA [facility]05-02-2025 Miscellaneous Notes* Telephone Encounter - Holley Bashir MA - 09/18/2024 12:01 PM EDT Chiki notified and verbalized understanding Holley Bashir MA * Telephone Encounter - Niraj Andino APRN.CNP - 09/18/2024 11:46 AM EDT Do not change any medications. We will obtain US and go from there. * Telephone Encounter - Nina Velez RN - 09/18/2024 9:40 AM EDT Pts sister called in and wanted to let provider know that they made Pts liver US appointment on 09/30/24. She also wasn't able to get into his MyChart so I gave her the liver labs. Pt also wanted to know if provider wanted to wean Pt off his Psych meds he takes one for schizophrenia and one for depression. She wanted to know if they are filtered through the liver the Mirtazapine and the Loratadine. I told her not to wean him off or stop the medications without the provider telling her to. Pleasecall and advise. Nina Velez RN documented in [facility] encounterA[facility] Telephone encounter Note * Telephone Encounter - Niraj Andino APRN.CNP - 09/18/2024 11:46 AM EDT Do not change any medications. We will obtain US and go from there. [facility]05-02-2025 Telephone encounter Note* Telephone Encounter - Nina Velez RN - 09/18/2024 9:40 AM EDT Pts sister called in and wanted to let provider know that they made Pts liver US appointment on 09/30/24. She also wasn't able to get into his MyChart so I gave her the liver labs. Pt also wanted to know if provider wanted to wean Pt off his Psych meds he takes one for schizophrenia and one for depression. She wanted to know if they are filtered through the liver the Mirtazapine and the Loratadine. I told her not to wean him off or stop the medications without the provider telling her to. Pleasecall and advise. Nina Velez RN [facility]05-01-2025 Telephone encounter Note* Telephone Encounter - Holley Bashir MA - 09/17/2024 6:38 PM EDT Chiki notified and verbalized understanding Holley Bashir MA [facility]05-01-2025 Miscellaneous Notes* Telephone Encounter - Holley Bashir MA - 09/17/2024 6:38 PM EDT Chiki notified and verbalized understanding Holley Bashir MA * Telephone Encounter - Niraj Andino APRN.CNP - 09/17/2024 9:17 AM EDT Please let patient's sister Chiki know his liver function is elevated and I recommend a RUQ US to check the structure of the Liver. documented in this encounterA[facility]05-[facility]-2025 Telephone encounter Note * Telephone Encounter - Niraj Andino APRN.CNP - 09/17/2024 9:17 AM EDT Please let patient's sister Chiki know his liver function is elevated and I recommend a RUQ US to check the structure of the Liver. [facility]04-11-2025 Telephone encounter Note* Telephone Encounter - Radha Wall LPN - 08/28/2024 2:05 PM EDT Patient sister Chiki Gill returned call and went over results, notes from Shena Andino CORPORATE BUYER with understanding. She will try to get him in today to get other labs done, if not it will be Saturday. [facility]04-11-2025 Miscellaneous Notes* Telephone Encounter - Radha Wall LPN - 08/28/2024 2:05 PM EDT Patient sister Chiki Gill returned call and went over results, notes from Shena Andino CORPORATE BUYER with understanding. She will try to get him in today to get other labs done, if not it will be Saturday. * Telephone Encounter - Mary Gibson MA - 08/28/2024 12:10 PM EDT Called and left message on patients Chiki nuñez's voicemail to return call to the office and ask tospeak with a FM triage nurse. Mary Gibson MA * Telephone Encounter - Niraj Andino APRN.UTILITY ENGINEER - 08/27/2024 12:38 PM EDT Etienne's alk phos is slightly higher than previous but other levels are stable. I have ordered followup labs that can be completed at any time. * Telephone Encounter - Tammi Sapp RN - 08/27/2024 12:10 PM EDT Patient's sister/guardian Chiki Gill is calling to ask if provider would advise on pt's recent hepatic function panel results, when able. Tammi Sapp RN documented in this encounterAultman Hospital04-11-2025 Telephone encounter Note * Telephone Encounter - Mary Gibson MA - 08/28/2024 12:10 PM EDT Called and left message on patients Chiki nuñez's voicemail to return call to the office and ask tospeak with a FM triage nurse. Mary Gibson MA [facility]04-11-2025 Telephone encounter Note* Telephone Encounter - Tammi Sapp RN - 08/28/2024 9:07 AM EDT Faxed as requested to number below. Detailed message left on Chiki Gill's identified VM. Tammi Sapp RN [facility]04-11-2025 Miscellaneous Notes* Telephone Encounter - Tammi Sapp RN - 08/28/2024 9:07 AM EDT Faxed as requested to number below. Detailed message left on Chiki Gill's identified VM. Tammi Sapp RN * Telephone Encounter - Niraj Andino APRN.CNP - 08/28/2024 8:43 AM EDT Order placed. * Telephone Encounter - Tammi Sapp RN - 08/27/2024 2:48 PM EDT Patient's sister/guardian Chiki Gill is calling to update Niraj Andino CNP that she was able to get patient in to an environmental science instructor today at [facility] and is there now. 1) The environmental science instructor there is asking for provider to place and fax an order to them to cover today's exam, for an audiometric evaluation referral. Please fax to [phone]. Requesting this by the endof the day, if possible. 2)The environmental science instructor states pt should have a brain stem response test in the future which should be indicated in today's audiology OV note. 2) The environmental science instructor advises that provider also place an order for ENT consult for pt to have after his brain stem response test. Please call sister Chiki with an update. Tammi Sapp RN documented in this encounterAultman Hospital04-11-2025 Telephone encounter Note * Telephone Encounter - Niraj Andino APRN.CNP - 08/28/2024 8:43 AM EDT Order placed. [facility]04-10-2025 Telephone encounter Note* Telephone Encounter - Tammi Sapp RN - 08/27/2024 2:48 PM EDT Patient's sister/guardian Chiki Gill is calling to update Niraj Andino CNP that she was able to get patient in to an environmental science instructor today at [facility] and is there now. 1) The environmental science instructor there is asking for provider to place and fax an order to them to cover today's exam, for an audiometric evaluation referral. Please fax to [phone]. [facility] 2)The environmental science instructor states pt should have a brain stem response test in the future which should be indicated in today's audiology OV note. 2) The environmental science instructor advises that provider also place an order for ENT consult for pt to have after his brain stem response test. Please call sister Chiki with an update. Tammi Sapp RN [facility]04-10-2025 History of Present illness Narrative* Brent Lugo - 08/27/2024 1:30 PM EDT Images from the original note were not included. Please note that a copy of the audiogram is located in the procedure tab of patient's electronic medical record. HISTORY: The patient, who was accompanied by his sister Chiki Gill, was seen for an audiologic evaluation. She took over guardianship of Etienne in 2022, and does not know about his history prior to 2022. The patient is non-verbal. His sister reports that he has difficulty hearing some noises, and willintermittently follow directions. He is tugging at his ears and touching his ears, but his sister is unsure if this is related to any ear pain he may be experiencing. He had a recent ear infection a few months ago in the right ear. They occur ~4-5 months, and they are treated with antibiotics. He does not tolerate eardrops. He has had his ear irrigated before. He is not showing signs of dizziness. There is no family history of hearing loss. History of past ear surgeries is unknown. History of noise exposure is unknown. TEST INTERPRETATION: Otoscopic observation reveals clear canals, bilaterally. Tympanometry results suggest normal compliance (Type A) in both ME systems. Audiological evaluation was completed using Conditioned Play Audiometry and Visual Reinforcement Audiometry. The patient would not condition to tonal stimuli. Minimum response levels to speech stimuli were obtained by repeating body parts. MRL in the right ear was obtained at 20dB HL. Patient did not consistently respond to speech stimuli at 90dB HL in the left ear, so MRL testing was discontinued for the left ear. Distortion Product Otoacoustic Emissions (DPOAEs) from 1000 Hz - 6000 Hz were measured. They were present from 1500 Hz - 6000 Hz in the right ear and were absent in the left ear. Ipsilateral acoustic reflexes were present at 4000 Hz in the right ear and absent in the left ear. Contralateral acoustic reflexed were present at 1000 Hz and 2000 Hz and absent in the left ear. RECOMMENDATIONS: -Consider testing using auditory brainstem response testing, as thresholds were not reliable -Follow up with ENT regarding asymmetric findings Test results were reviewed with the patient's sister. Test results were inconclusive, but suggest asymmetric hearing loss significantly poorer in left ear than right ear. It was recommended the patient follow up with an ENT provider for further medical evaluation. Further testing using an auditory b rainstem response test should be considered, as patient would not condition to stimuli. He was scheduled for an ABR and an ENT consultation on 09/29/2024. ICD-10-CM 1. Conductive hearing loss, unspecified laterality H90.2 Trice Hicks. [facility]A Doctor of Audiology Department of Otolaryngology-Head and Neck Surgery [address] [place] [address], [address] [place] [address] Checo Disla, CARLOS-A Doctor of Audiology Department of Otolaryngology-Head and Neck Surgery [address] [place] [address], [address] [place] [address] documented in this encounterOSU [facility] Telephone encounter Note* Telephone Encounter - Niraj Andino APRN.CNP - 08/27/2024 12:38 PM EDT Etienne's alk phos is slightly higher than previous but other levels are stable. I have ordered followup labs that can be completed at any time. [facility]04-10-2025 Telephone encounter Note* Telephone Encounter - Tammi Sapp RN - 08/27/2024 12:10 PM EDT Patient's sister/guardian Chiki Gill is calling to ask if provider would advise on pt's recent hepatic function panel results, when able. Tammi Sapp RN [facility]04-09-2025 Evaluation note* Diagnosis Onset Date Resolution Status Admit Date H. pylori infection acute August 26, 2024 3:38pm Loose stools acute August 26, 2 025 3:38pm [facility] Work Phone: 1(905) 589-509504-09-2025 Evaluation note* Diagnosis Onset Date Resolution Status Admit Date H. pylori infection acute August 26, 2024 3:38pm Loose stools acute August 26, 2 025 3:38pm Constipation acute October 28 025 3:32pm H. pylori infection acute October 28, 2024 3:32pm Loose stools acute October 28, 2 025 3:32pm [facility] Work Phone: 1(690) 637-156304-01-2025 Telephone encounter Note* Telephone Encounter - Tram Barajas RN - 08/18/2024 8:35 AM EDT Kerry from [facility] asking for clinical information regarding pt's Atorvastatin liquid prescription.Explained that pt does not swallow pills and has Autism, Mental disability and Schizophrenia. Radha forward the clinical information on. Ref # is [id number] [facility]04-01-2025 Miscellaneous Notes* Telephone Encounter - Tram Barajas RN - 08/18/2024 8:35 AM EDT [facility] asking for clinical information regarding pt's Atorvastatin liquid prescription.Explained that pt does not swallow pills and has Autism, Mental disability and Schizophrenia. Radha forward the clinical information on. Ref # is [id number] * Telephone Encounter - Niraj Andino APRN.CNP - 08/14/2024 1:54 PM EDT I have sent in a rx for liquid atorvastatin. * Telephone Encounter - Nina Velez RN - 08/14/2024 1:01 PM EDT Pts sister called and is notified of providers results and instructions. She voices understanding. She states she is ok with Pt going on something for Cholesterol, but it will have to be liquid or gummy as Pt doesn't swallow pills. She is also asking if provider can send in a liquid or chewable Vitamin D. She reports right now the Pt is taking gummy Vit D. She denies the Pt taking any new medications. She wanted to let the provider know that she has fatty liver and non-alcoholic liver disease, and they think it's from her and Etienne's fathers side of the family. Please call and advise on the medications and getting in liquid or chewable form. Nina Velez RN * Telephone Encounter - Niraj Andino APRN.CNP - 08/14/2024 11:42 AM EDT Please let Chiki know Masoud vit d is still low. Continue supplementation. I have sent in a refill. His iron is normal continue supplementation. His liver enzymes are elevated again. Has he had recent medication changes? I would like repeat labs in 2 weeks. His cholesterol is higher than previous I would like to start him on cholesterol medication. This medication would be at bedtime and once a day.He will need to stay well hydrated. * Telephone Encounter - Michelle Tijerina RN - 08/14/2024 11:03 AM EDT Patient's sister Chiki calls and is asking about lab results. Please review and advise, Michelle Tijerina RN documented in this encounterAultman Hospital03-28-2025 Telephone encounter Note * Telephone Encounter - Niraj Andino APRN.JOSHUA - 08/14/2024 1:54 PM EDT I have sent in a rx for liquid atorvastatin. [facility]03-28-2025 Telephone encounter Note* Telephone Encounter - Nina Velez RN - 08/14/2024 1:01 PM EDT Pts sister called and is notified of providers results and instructions. She voices understanding. She states she is ok with Pt going on something for Cholesterol, but it will have to be liquid or gummy as Pt doesn't swallow pills. She is also asking if provider can send in a liquid or chewable Vitamin D. She reports right now the Pt is taking gummy Vit D. She denies the Pt taking any new medications. She wanted to let the provider know that she has fatty liver and non-alcoholic liver disease, and they think it's from her and Etienne's fathers side of the family. Please call and advise on the medications and getting in liquid or chewable form. Nina Velez RN [facility]03-28-2025 Telephone encounter Note* Telephone Encounter - Niraj Andino APRN.CNP - 08/14/2024 11:42 AM EDT Please let Chiki know Masoud vit d is still low. Continue supplementation. I have sent in a refill. His iron is normal continue supplementation. His liver enzymes are elevated again. Has he had recent medication changes? I would like repeat labs in 2 weeks. His cholesterol is higher than previous I would like to start him on cholesterol medication. This medication would be at bedtime and once a day.He will need to stay well hydrated. [facility]03-28-2025 Telephone encounter Note* Telephone Encounter - Michelle Tijerina RN - 08/14/2024 11:03 AM EDT Patient's sister Chiki calls and is asking about lab results. Please review and advise, Michelle Tijerina RN T [facility]03-25-2025 NoteHNO ID: [id number] Author: NIRAJ ANDINO APRN.JOSHUA Service: ? Author Type: Nurse Practitioner Type: Progress Notes Filed: 08/11/2024 16:45 Note Text: Chief Complaint Patient presents with: Physical HPI Arvind Domínguez is a 49 year old male who presents here today for Above Complaints.. Patient presents for annual physical. Past medical history, appointments, medications, allergies reviewed. Previous Medical History PAST MEDICAL HISTORY Diagnosis Date Autism GERD (gastroesophageal reflux disease) Mental disability Schizophrenia (HCC) Underweight due to inadequate caloric intake Vitamin D deficiency Previous Surgical History No past surgical history on file. Family History No family history on file. Patient Allergies ALLERGIES No Known Allergies Current Medications Current Outpatient Medications on File Prior to Visit Medication Sig clarithromycin (BIAXIN) 250 mg tablet Take by mouth two times a day. Dr Chong amoxicillin (AMOXIL) 250 mg/5 mL suspension Take by mouth three times a day. Dr Chong KAOPECTATE, ATTAPULGITE, ORAL Take by mouth. Dr Chong Lactobac no.41/Bifidobact no.7 (PROBIOTIC-10 ORAL) Take by mouth. Gummies - Dr. Chong cetirizine HCl (ZYRTEC) 10 mg chewable tablet Take 1 tablet by mouth once daily. ferrous sulfate 220 mg/5 mL elix Take 7.4 mL by mouth once daily. calcium carbonate (CALCIUM ANTACID) 500 mg chew Take 2 tablets by mouth once daily. cyanocobalamin (VITAMIN B-12) 1,000 mcg tab Take 1 tablet by mouth once daily. Takes as a gummie selenium 50 mcg tab Take 1 tablet by mouth once daily. Takes as a gummie Zinc Sulfate 25 mg zinc (110 mg) tab Take 25 tablets by mouth once daily. Takes as a gummie omega-3 DHA-EPA (FISH OIL) 1,200 (144-216) mg capsule Take 1 capsule by mouth daily with breakfast. ascorbic acid, vitamin C, (VITAMIN C) 500 mg tablet Take 1 tablet by mouth once daily. ergocalciferol 50,000 unit capsule (VITAMIN D2, DRISDOL) Take 1 capsule by mouth one time a week. diphenhydrAMINE (BENADRYL) 25 mg capsule Take 1-2 capsules by mouth at bedtime as needed. food supplemt, lactose-reduced (BOOST MEN) 0.08 gram- 0.9 kcal/mL liqd Take 1 Bottle by mouth two times a day before meals. mirtazapine (REMERON) 15 mg tablet Take 15 mg by mouth daily at bedtime. melatonin 10 mg chew Take 1 Each by mouth once daily. pantoprazole DR (PROTONIX) 40 mg tablet Take 1 tablet by mouth once daily. (capsule) fluticasone (FLONASE) 50 mcg/actuation nasal spray Use 1 Casanova in each nostril once daily. loratadine 10 mg dissolvable tablet Take 10 mg by mouth once daily. OLANZapine orally disintegrating (ZYPREXA ZYDIS) 5 mg disintegrating tablet Take 5 mg by mouth daily at bedtime. Nutritional Supplements (ENSURE PUDDING) pudg Take 113 g by mouth twice daily. No current facility-administered medications on file prior to visit. Social History Social History Tobacco Use Smoking status: Never Smokeless tobacco: Never Substance Use Topics Alcohol use: Never Drug use: Never Review of Symptoms REVIEW OF SYSTEMS SEE HPI EXAM: BP 118/82 Pulse 92 Wt 72 kg (158 lb 11.7 oz) BMI 22.78 kg/m? General Appearance: Well appearing, alert, in no acute distress, well-hydrated, well nourished. Skin: Skin color, texture, turgor normal, no suspicious rashes or lesions. Neck: Supple, no adenopathy; thyroid symmetric, normal size, no bruits. Lungs: Lungs clear to auscultation. No wheezing, rhonchi, rales.. Heart: RRR without murmur, gallop, or rubs. No ectopy. Abdomen: Normal abdominal exam, Abdomen soft, non-tender. Bowel sounds normal. No masses, organomegaly. Musculoskeletal: No joint swelling, deformity, or tenderness. Peripheral Pulses: Normal. Neurologic: Gait normal. Reflexes normal and symmetric. Sensation grossly intact.. Health Maintenance List Depression Screening Never done Anxiety Screening Never done HIV Screening Never done Colorectal Cancer Screening Never done Covid-19 Vaccine( season) Never done Hepatitis B Vaccine(2 of 3 - 19+ 3-dose series) due on 03/31/2024 Diabetes Screening due on 07/24/2026 Lipid Screening due on 07/24/2028 DTaP,Tdap,Td Vaccine(2 - Td or Tdap) due on 03/03/2034 Influenza Vaccine Completed Hepatitis C Screening Completed ASSESSMENT/PLAN: 1. Wellness examination - ICD9: V70.0, ICD10: Z00.00 (primary diagnosis) - Counseled on healthy diet and regular exercise - Patient counseled on and acknowledged vaccine benefits/risks/side effects; VIS provided: Hep B Vaccine - Follow up for annual exam in one year 2. Vitamin D deficiency - ICD9: 268.9, ICD10: E55.9 - VITAMIN D 25 HYDROXY 3. Medication management - ICD9: V58.69, ICD10: Z79.899 - COMPLETE BLOOD COUNT AND DIFFERENTIAL - COMPREHENSIVE METABOLIC PANEL - THYROID STIMULATING HORMONE - IRON AND TIBC 4. Encounter for lipid screening for cardiovascular disease - ICD9: V77.91, V81.2, ICD10: Z13. (more content not included)...[facility] 08-11-2024 History of Present illness Narrative* CarliNiraj velarde, IDALIA.UTILITY ENGINEER - 08/11/2024 3:56 PM EDT Chief Complaint Patient presents with: Physical HPI Arvind Domínguez is a 49 year old male who presents here today for Above Complaints.. Patient presents for annual physical. Past medical history, appointments, medications, allergies reviewed. Previous Medical History PAST MEDICAL HISTORY Diagnosis Date Autism GERD (gastroesophageal reflux disease) Mental disability Schizophrenia (HCC) Underweight due to inadequate caloric intake Vitamin D deficiency Previous Surgical History No past surgical history on file. Family History No family history on file. Patient Allergies ALLERGIES No Known Allergies Current Medications Current Outpatient Medications on File Prior to Visit Medication Sig clarithromycin (BIAXIN) 250 mg tablet Take by mouth two times a day. Dr Chong amoxicillin (AMOXIL) 250 mg/5 mL suspension Take by mouth three times a day. Dr Chong KAOPECTATE, ATTAPULGITE, ORAL Take by mouth. Dr Chong Lactobac no.41/Bifidobact no.7 (PROBIOTIC-10 ORAL) Take by mouth. Gummies - Dr. Chong cetirizine HCl (ZYRTEC) 10 mg chewable tablet Take 1 tablet by mouth once daily. ferrous sulfate 220 mg/5 mL elix Take 7.4 mL by mouth once daily. calcium carbonate (CALCIUM ANTACID) 500 mg chew Take 2 tablets by mouth once daily. cyanocobalamin (VITAMIN B-12) 1,000 mcg tab Take 1 tablet by mouth once daily. Takes as a gummie selenium 50 mcg tab Take 1 tablet by mouth once daily. Takes as a gummie Zinc Sulfate 25 mg zinc (110 mg) tab Take 25 tablets by mouth once daily. Takes as a gummie omega-3 DHA-EPA (FISH OIL) 1,200 (144-216) mg capsule Take 1 capsule by mouth daily with breakfast. ascorbic acid, vitamin C, (VITAMIN C) 500 mg tablet Take 1 tablet by mouth once daily. ergocalciferol 50,000 unit capsule (VITAMIN D2, DRISDOL) Take 1 capsule by mouth one time a week. diphenhydrAMINE (BENADRYL) 25 mg capsule Take 1-2 capsules by mouth at bedtime as needed. food supplemt, lactose-reduced (BOOST MEN) 0.08 gram- 0.9 kcal/mL liqd Take 1 Bottle by mouth two times a day before meals. mirtazapine (REMERON) 15 mg tablet Take 15 mg by mouth daily at bedtime. melatonin 10 mg chew Take 1 Each by mouth once daily. pantoprazole DR (PROTONIX) 40 mg tablet Take 1 tablet by mouth once daily. (capsule) fluticasone (FLONASE) 50 mcg/actuation nasal spray Use 1 Casanova in each nostril once daily. loratadine 10 mg dissolvable tablet Take 10 mg by mouth once daily. OLANZapine orally disintegrating (ZYPREXA ZYDIS) 5 mg disintegrating tablet Take 5 mg by mouth daily at bedtime. Nutritional Supplements (ENSURE PUDDING) pudg Take 113 g by mouth twice daily. No current facility-administered medications on file prior to visit. Social History Social History Tobacco Use Smoking status: Never Smokeless tobacco: Never Substance Use Topics Alcohol use: Never Drug use: Never Review of Symptoms REVIEW OF SYSTEMS SEE HPI EXAM: BP 118/82 Pulse 92 Wt 72 kg (158 lb 11.7 oz) BMI 22.78 kg/m General Appearance: Well appearing, alert, in no acute distress, well-hydrated, well nourished. Skin: Skin color, texture, turgor normal, no suspicious rashes or lesions. Neck: Supple, no adenopathy; thyroid symmetric, normal size, no bruits. Lungs: Lungs clear to auscultation. No wheezing, rhonchi, rales.. Heart: RRR without murmur, gallop, or rubs. No ectopy. Abdomen: Normal abdominal exam, Abdomen soft, non-tender. Bowel sounds normal. No masses, organomegaly. Musculoskeletal: No joint swelling, deformity, or tenderness. Peripheral Pulses: Normal. Neurologic: Gait normal. Reflexes normal and symmetric. Sensation grossly intact.. Health Maintenance List Depression Screening Never done Anxiety Screening Never done HIV Screening Never done Colorectal Cancer Screening Never done Covid-19 Vaccine(2023- season) Never done Hepatitis B Vaccine(2 of 3 - 19+ 3-dose series) due on 03/31/2024 Diabetes Screening due on 07/24/2026 Lipid Screening due on 07/24/2028 DTaP,Tdap,Td Vaccine(2 - Td or Tdap) due on 03/03/2034 Influenza Vaccine Completed Hepatitis C Screening Completed ASSESSMENT/PLAN: 1. Wellness examination - ICD9: V70.0, ICD10: Z00.00 (primary diagnosis) - Counseled on healthy diet and regular exercise - Patient counseled on and acknowledged vaccine benefits/risks/side effects; VIS provided: Hep B Vaccine - Follow up for annual exam in one year 2. Vitamin D deficiency - ICD9: 268.9, ICD10: E55.9 - VITAMIN D 25 HYDROXY 3. Medication management - ICD9: V58.69, ICD10: Z79.899 - COMPLETE BLOOD COUNT AND DIFFERENTIAL - COMPREHENSIVE METABOLIC PANEL - THYROID STIMULATING HORMONE - IRON AND TIBC 4. Encounter for lipid screening for cardiovascular disease - ICD9: V77.91, V81.2, ICD10: Z13.220, Z13.6 - LIPID PANEL, NONFASTING 5. Schizophrenia, unspecified type (HCC) - ICD9: 295.90, ICD10: F20.9 -:Continue current medications 6. GERD without esophagitis - ICD9: 530.81, ICD10: K21.9 - Discussed lifestyle modifications including - Continue treatment with Pantoprazole 40mg QD 7. Non-verbal learning disorder - ICD9: 315.2, ICD10: F81.89 -:Continue current medications 8. Encounter for immunization - ICD9: V03.89, ICD10: Z23 - HEP B VACCINE, 2-DOSE (HEPLISAV-B) Niraj Andino APRN.UTILITY ENGINEER documented [facility]25 NoteHNO ID: [id number] Author: NIRAJ ANDINO APRN.UTILITY ENGINEER Service: ? Author Type: Nurse Practitioner Type: Progress Notes Filed: 07/14/2024 15:26 Note Text: Chief Complaint Patient presents with: Cough HPI Arvind Domínguez is a 49 year old male who presents here today for Above Complaints.. Patient presents for continued cough and decreased appetite. Patient was diagnosed with covid on 07/01 and has otherwise recovered. Past medical history, appointments, medications, allergies reviewed. Previous Medical History PAST MEDICAL HISTORY Diagnosis Date Autism GERD (gastroesophageal reflux disease) Mental disability Schizophrenia (HCC) Underweight due to inadequate caloric intake Vitamin D deficiency Previous Surgical History No past surgical history on file. Family History No family history on file. Patient Allergies ALLERGIES No Known Allergies Current Medications Current Outpatient Medications on File Prior to Visit Medication Sig clarithromycin (BIAXIN) 250 mg tablet Take by mouth two times a day. Dr Chong amoxicillin (AMOXIL) 250 mg/5 mL suspension Take by mouth three times a day. Dr Chong KAOPECTATE, ATTAPULGITE, ORAL Take by mouth. Dr Chong Lactobac no.41/Bifidobact no.7 (PROBIOTIC-10 ORAL) Take by mouth. Gummies - Dr. Chong cetirizine HCl (ZYRTEC) 10 mg chewable tablet Take 1 tablet by mouth once daily. ferrous sulfate 220 mg/5 mL elix Take 7.4 mL by mouth once daily. calcium carbonate (CALCIUM ANTACID) 500 mg chew Take 2 tablets by mouth once daily. cyanocobalamin (VITAMIN B-12) 1,000 mcg tab Take 1 tablet by mouth once daily. Takes as a gummie selenium 50 mcg tab Take 1 tablet by mouth once daily. Takes as a gummie Zinc Sulfate 25 mg zinc (110 mg) tab Take 25 tablets by mouth once daily. Takes as a gummie omega-3 DHA-EPA (FISH OIL) 1,200 (144-216) mg capsule Take 1 capsule by mouth daily with breakfast. ascorbic acid, vitamin C, (VITAMIN C) 500 mg tablet Take 1 tablet by mouth once daily. ergocalciferol 50,000 unit capsule (VITAMIN D2, DRISDOL) Take 1 capsule by mouth one time a week. diphenhydrAMINE (BENADRYL) 25 mg capsule Take 1-2 capsules by mouth at bedtime as needed. food supplemt, lactose-reduced (BOOST MEN) 0.08 gram- 0.9 kcal/mL liqd Take 1 Bottle by mouth two times a day before meals. mirtazapine (REMERON) 15 mg tablet Take 15 mg by mouth daily at bedtime. melatonin 10 mg chew Take 1 Each by mouth once daily. pantoprazole DR (PROTONIX) 40 mg tablet Take 1 tablet by mouth once daily. (capsule) fluticasone (FLONASE) 50 mcg/actuation nasal spray Use 1 Casanova in each nostril once daily. loratadine 10 mg dissolvable tablet Take 10 mg by mouth once daily. OLANZapine orally disintegrating (ZYPREXA ZYDIS) 5 mg disintegrating tablet Take 5 mg by mouth daily at bedtime. Nutritional Supplements (ENSURE PUDDING) pudg Take 113 g by mouth twice daily. No current facility-administered medications on file prior to visit. Social History Social History Tobacco Use Smoking status: Never Smokeless tobacco: Never Substance Use Topics Alcohol use: Never Drug use: Never Review of Symptoms REVIEW OF SYSTEMS SEE HPI EXAM: BP 116/80 Pulse 94 Wt 71.7 kg (158 lb) BMI 22.67 kg/m? General Appearance: Well appearing, alert, in no acute distress, well-hydrated, well nourished. Lungs: Lungs clear to auscultation. No wheezing, rhonchi, rales.. Heart: RRR without murmur, gallop, or rubs. No ectopy. Health Maintenance List Depression Screening Never done Anxiety Screening Never done HIV Screening Never done Colorectal Cancer Screening Never done Covid-19 Vaccine( - season) Never done Hepatitis B Vaccine(2 of 3 - 19+ 3-dose series) due on 03/31/2024 Diabetes Screening due on 07/24/2026 Lipid Screening due on 07/24/2028 DTaP,Tdap,Td Vaccine(2 - Td or Tdap) due on 03/03/2034 Influenza Vaccine Completed Hepatitis C Screening Completed ASSESSMENT/PLAN: 1. Post-viral cough syndrome - ICD9: 786.2, ICD10: R05.8 -Likely from recent covid. If continues after 4-6 more weeks would recommend follow up. Niraj Andino APRN.[facility]02-25-[facility]25 History of Present illness Narrative* Niraj Andino APRN.UTILITY ENGINEER - 07/14/2024 3:13 PM EST Chief Complaint Patient presents with: Cough HPI Arvind Domínguez is a 49 year old male who presents here today for Above Complaints.. Patient presents for continued cough and decreased appetite. Patient was diagnosed with covid on 07/01 and has otherwise recovered. Past medical history, appointments, medications, allergies reviewed. Previous Medical History PAST MEDICAL HISTORY Diagnosis Date Autism GERD (gastroesophageal reflux disease) Mental disability Schizophrenia (HCC) Underweight due to inadequate caloric intake Vitamin D deficiency Previous Surgical History No past surgical history on file. Family History No family history on file. Patient Allergies ALLERGIES No Known Allergies Current Medications Current Outpatient Medications on File Prior to Visit Medication Sig clarithromycin (BIAXIN) 250 mg tablet Take by mouth two times a day. Dr Chong amoxicillin (AMOXIL) 250 mg/5 mL suspension Take by mouth three times a day. Dr Chong KAOPECTATE, ATTAPULGITE, ORAL Take by mouth. Dr Chong Lactobac no.41/Bifidobact no.7 (PROBIOTIC-10 ORAL) Take by mouth. Gummies - Dr. Chong cetirizine HCl (ZYRTEC) 10 mg chewable tablet Take 1 tablet by mouth once daily. ferrous sulfate 220 mg/5 mL elix Take 7.4 mL by mouth once daily. calcium carbonate (CALCIUM ANTACID) 500 mg chew Take 2 tablets by mouth once daily. cyanocobalamin (VITAMIN B-12) 1,000 mcg tab Take 1 tablet by mouth once daily. Takes as a gummie selenium 50 mcg tab Take 1 tablet by mouth once daily. Takes as a gummie Zinc Sulfate 25 mg zinc (110 mg) tab Take 25 tablets by mouth once daily. Takes as a gummie omega-3 DHA-EPA (FISH OIL) 1,200 (144-216) mg capsule Take 1 capsule by mouth daily with breakfast. ascorbic acid, vitamin C, (VITAMIN C) 500 mg tablet Take 1 tablet by mouth once daily. ergocalciferol 50,000 unit capsule (VITAMIN D2, DRISDOL) Take 1 capsule by mouth one time a week. diphenhydrAMINE (BENADRYL) 25 mg capsule Take 1-2 capsules by mouth at bedtime as needed. food supplemt, lactose-reduced (BOOST MEN) 0.08 gram- 0.9 kcal/mL liqd Take 1 Bottle by mouth two times a day before meals. mirtazapine (REMERON) 15 mg tablet Take 15 mg by mouth daily at bedtime. melatonin 10 mg chew Take 1 Each by mouth once daily. pantoprazole DR (PROTONIX) 40 mg tablet Take 1 tablet by mouth once daily. (capsule) fluticasone (FLONASE) 50 mcg/actuation nasal spray Use 1 Casanova in each nostril once daily. loratadine 10 mg dissolvable tablet Take 10 mg by mouth once daily. OLANZapine orally disintegrating (ZYPREXA ZYDIS) 5 mg disintegrating tablet Take 5 mg by mouth daily at bedtime. Nutritional Supplements (ENSURE PUDDING) pudg Take 113 g by mouth twice daily. No current facility-administered medications on file prior to visit. Social History Social History Tobacco Use Smoking status: Never Smokeless tobacco: Never Substance Use Topics Alcohol use: Never Drug use: Never Review of Symptoms REVIEW OF SYSTEMS SEE HPI EXAM: BP 116/80 Pulse 94 Wt 71.7 kg (158 lb) BMI 22.67 kg/m General Appearance: Well appearing, alert, in no acute distress, well-hydrated, well nourished. Lungs: Lungs clear to auscultation. No wheezing, rhonchi, rales.. Heart: RRR without murmur, gallop, or rubs. No ectopy. Health Maintenance List Depression Screening Never done Anxiety Screening Never done HIV Screening Never done Colorectal Cancer Screening Never done Covid-19 Vaccine( season) Never done Hepatitis B Vaccine(2 of 3 - 19+ 3-dose series) due on 03/31/2024 Diabetes Screening due on 07/24/2026 Lipid Screening due on 07/24/2028 DTaP,Tdap,Td Vaccine(2 - Td or Tdap) due on 03/03/2034 Influenza Vaccine Completed Hepatitis C Screening Completed ASSESSMENT/PLAN: 1. Post-viral cough syndrome - ICD9: 786.2, ICD10: R05.8 -Likely from recent covid. If continues after 4-6 more weeks would recommend follow up. Niraj Andino APRN.UTILITY ENGINEER documented in this encounterA[facility]02-[facility]25 Telephone encounter Note * Telephone Encounter - Leann Cruz RN - 07/07/2024 2:21 PM EST Sister and legal guardian, Chiki, reports patient is covid + on lab result 07/01/24. Reports pt is autistic, and his scizophrenia is heightened today, although she is giving him all of his medications. Reports he is having outbursts like he is talking in his head. Reports patient is non communicative- he can't tell her how he feels. Reports he's coughing a lot, doesn't want to eat or drink for the last couple days. Reports his oxygen is ok but his HR is running 127, he doesn't have a fever, but his urine is dark yellow. Reports patient is holding his ear like it hurts. Chiki agreeable to take patient to ER for evaluation and possibly IV fluids. [facility]02-18-[facility] Miscellaneous Notes* Telephone Encounter - Leann Cruz RN - 07/07/2024 2:21 PM EST Sister and legal guardian, Chiki, reports patient is covid + on lab result 07/01/24. Reports pt is autistic, and his scizophrenia is heightened today, although she is giving him all of his medications. Reports he is having outbursts like he is talking in his head. Reports patient is non communicative- he can't tell her how he feels. Reports he's coughing a lot, doesn't want to eat or drink for the last couple days. Reports his oxygen is ok but his HR is running 127, he doesn't have a fever, but his urine is dark yellow. Reports patient is holding his ear like it hurts. Chiki agreeable to take patient to ER for evaluation and possibly IV fluids. documented in this encounterA[facility]02-12-2025 Telephone encounter Note * Telephone Encounter - Bethany Millan LPN - 07/01/2024 1:05 PM EST Phoned patient's sister/guardian and updated her with result. She voiced understanding. Bethany Millan LPN [facility]02-12-2025 Miscellaneous Notes* Telephone Encounter - Bethany Millan LPN - 07/01/2024 1:05 PM EST Phoned patient's sister/guardian and updated her with result. She voiced understanding. Bethany Millan LPN * Telephone Encounter - Bethany Millan LPN - 07/01/2024 1:04 PM EST ----- Message from Donna Aponte APRN.UTILITY ENGINEER sent at 07/01/2024 12:45 PM EST ----- Chest xray is normal. Donna Aponte APRN.UTILITY ENGINEER documented in this encounterAultman Hospital02-12-2025 Telephone encounter Note * Telephone Encounter - Bethany Millan LPN - 07/01/2024 1:04 PM EST ----- Message from Donna Aponte APRN.UTILITY ENGINEER sent at 07/01/2024 12:45 PM EST ----- Chest xray is normal. Donna Aponte APRN.UTILITY ENGINEER [facility]02-[facility] History of Present illness Narrative* Kilo Chand RT(Madeleine) - 07/01/2024 12:20 PM EST Radiology Service Progress Note PATIENT NAME: Arvind Domínguez DATE OF SERVICE: July 01, 2024 TIME: 12:26 PM PATIENT IDENTITY VERIFICATION COMPLETED USING TWO (2) IDENTIFIERS: Name and Date of confirmedby patient verbally. FALL SCREENING: Has the patient had 2 falls in the last year or 1 fall with injury or currently using an Ambulatory Assistive Device (Walker, Cane, Wheelchair, Crutches, etc.)? No PATIENT GENDER DATA: Assigned male at PATIENT RELEVANT IMPLANT DATA REVIEWED: Yes PATIENT PRESENTS WITH AN IMPLANTABLE OR ATTACHED PILEDRIVER CARPENTER: No RADIOLOGY DEPARTMENT: General X-ray: Exam(s) Completed: Chest X-Ray PERIPHERAL IV DATA: Not applicable SIGNED BY: RT Hu(R) July 01, 2024 12:26 PM documented in this encounterAultman Hospital02-12-2025 NoteHNO ID: [id number] Author: KILO CHAND RT(R) Service: ? Author Type: Credit Reference Clerk Type: Progress Notes Filed: 07/01/2024 12:40 Note Text: Radiology Service Progress Note PATIENT NAME: Arvind Domínguez DATE OF SERVICE: July 01, 2024 TIME: 12:26 PM PATIENT IDENTITY VERIFICATION COMPLETED USING TWO (2) IDENTIFIERS: Name and Date of confirmed by patient verbally. FALL SCREENING: Has the patient had 2 falls in the last year or 1 fall with injury or currently using an Ambulatory Assistive Device (Walker, Cane, Wheelchair, Crutches, etc.)? No PATIENT GENDER DATA: Assigned male at PATIENT RELEVANT IMPLANT DATA REVIEWED: Yes PATIENT PRESENTS WITH AN IMPLANTABLE OR ATTACHED PILEDRIVER CARPENTER: No RADIOLOGY DEPARTMENT: General X-ray: Exam(s) Completed: Chest X-Ray PERIPHERAL IV DATA: Not applicable SIGNED BY: HANNAH Lui) July 01, 2024 12:26 [facility]02-12-2025 [id number] (AGENT OF COVID-19) RNA: Detected INFLUENZA A RNA: Not detected INFLUENZA B RNA: Not detected RESPIRATORY SYNCYTIAL VIRUS (RSV) RNA: Not detectedAcmc Healthcare SystemComment on above:Performed By: #### [id number] ####[facility] LABCLIA [id number] [address] OF [id number] NoteHNO ID: [id number] Author: DONNA APONTE APRN.JOSHUA Service: ? Author Type: Nurse Practitioner Type: Progress Notes Filed: 07/01/2024 12:22 Note Text: Chief Complaint Patient presents with: Cough HPI Arvind Domínguez is a 49 year old male, accompanied by sister, who presents here today for cough/sinus/low grade fever. Patient is nonverbal per sister who is guardian Patient was seen 06/22/2024 - negative covid/Flu/RSV. Sister reports seemed to improve, but yesterday cough seems worse. Coughing so hard he will throw up. Temp yesterday was 100. Not eating well and + for rhinorrhea. Sister reports does not seem short of breath, having difficulty breathing or diarrhea. Has not given him any OTC medications for symptoms Previous Medical History PAST MEDICAL HISTORY Diagnosis Date Autism GERD (gastroesophageal reflux disease) Mental disability Schizophrenia (HCC) Underweight due to inadequate caloric intake Vitamin D deficiency Previous Surgical History No past surgical history on file. Family History No family history on file. Patient Allergies ALLERGIES No Known Allergies Current Medications Current Outpatient Medications on File Prior to Visit Medication Sig clarithromycin (BIAXIN) 250 mg tablet Take by mouth two times a day. Dr Chong amoxicillin (AMOXIL) 250 mg/5 mL suspension Take by mouth three times a day. Dr Chong KAOPECTATE, ATTAPULGITE, ORAL Take by mouth. Dr Chong Lactobac no.41/Bifidobact no.7 (PROBIOTIC-10 ORAL) Take by mouth. Gummies - Dr. Chong cetirizine HCl (ZYRTEC) 10 mg chewable tablet Take 1 tablet by mouth once daily. ferrous sulfate 220 mg/5 mL elix Take 7.4 mL by mouth once daily. calcium carbonate (CALCIUM ANTACID) 500 mg chew Take 2 tablets by mouth once daily. cyanocobalamin (VITAMIN B-12) 1,000 mcg tab Take 1 tablet by mouth once daily. Takes as a gummie selenium 50 mcg tab Take 1 tablet by mouth once daily. Takes as a gummie Zinc Sulfate 25 mg zinc (110 mg) tab Take 25 tablets by mouth once daily. Takes as a gummie omega-3 DHA-EPA (FISH OIL) 1,200 (144-216) mg capsule Take 1 capsule by mouth daily with breakfast. ascorbic acid, vitamin C, (VITAMIN C) 500 mg tablet Take 1 tablet by mouth once daily. ergocalciferol 50,000 unit capsule (VITAMIN D2, DRISDOL) Take 1 capsule by mouth one time a week. diphenhydrAMINE (BENADRYL) 25 mg capsule Take 1-2 capsules by mouth at bedtime as needed. food supplemt, lactose-reduced (BOOST MEN) 0.08 gram- 0.9 kcal/mL liqd Take 1 Bottle by mouth two times a day before meals. mirtazapine (REMERON) 15 mg tablet Take 15 mg by mouth daily at bedtime. melatonin 10 mg chew Take 1 Each by mouth once daily. pantoprazole DR (PROTONIX) 40 mg tablet Take 1 tablet by mouth once daily. (capsule) fluticasone (FLONASE) 50 mcg/actuation nasal spray Use 1 Casanova in each nostril once daily. loratadine 10 mg dissolvable tablet Take 10 mg by mouth once daily. OLANZapine orally disintegrating (ZYPREXA ZYDIS) 5 mg disintegrating tablet Take 5 mg by mouth daily at bedtime. Nutritional Supplements (ENSURE PUDDING) pudg Take 113 g by mouth twice daily. No current facility-administered medications on file prior to visit. Social History Social History Tobacco Use Smoking status: Never Smokeless tobacco: Never Substance Use Topics Alcohol use: Never Drug use: Never Review of Symptoms REVIEW OF SYSTEMS Negative other than HPI EXAM: BP 122/94 Pulse 89 Temp 37.1 ?C (98.7 ?F) (Temporal Artery) Resp 18 Wt 70.8 kg (156 lb) SpO2 94% BMI 22.38 kg/m? General Appearance: Well appearing, alert, in no acute distress, well-hydrated, well nourished.. Skin: Skin color, texture, turgor normal, no suspicious rashes or lesions. Eyes: Anicteric sclera. Ears: External ears normal, canals clear. Oropharynx: patient will not open mouth to examine. Neck: Supple, no adenopathy Lungs: Lungs clear to auscultation. No wheezing, rhonchi, rales. No cough noted Heart: RRR without murmur, gallop, or rubs. No ectopy. Health Maintenance List Depression Screening Never done Anxiety Screening Never done HIV Screening Never done Colorectal Cancer Screening Never done Covid-19 Vaccine(2023- season) Never done Hepatitis B Vaccine(2 of 3 - 19+ 3-dose series) due on 03/31/2024 Diabetes Screening due on 07/24/2026 Lipid Screening due on 07/24/2028 DTaP,Tdap,Td Vaccine(2 - Td or Tdap) due on 03/03/2034 Influenza Vaccine Completed Hepatitis C Screening Completed ASSESSMENT/PLAN: 1. Acute cough - ICD9: 786.2, ICD10: R05.1 - no red flag symptoms or exam findings - red flag symptoms discussed, verbalizes understanding - may use OTC cough and cold preparations as directed on packaging - push fluids to help with tenacity of sputum - XR CHEST 2V FRONTAL/LAT - COVID AND INFLUENZA A/B AND RSV PCR, ROUTINE - follow-up if fails to improve to ER with red flag symptoms Donna Podlogheidi, (more content not included)...[facility] 07-01-[facility] History of Present illness Narrative* Podlogheidi, IDALIA Thompson.UTILITY ENGINEER - 07/01/2024 11:52 AM EST Chief Complaint Patient presents with: Cough HPI Arvind Domínguez is a 49 year old male, accompanied by sister, who presents here today for cough/sinus/low grade fever. Patient is nonverbal per sister who is guardian Patient was seen 06/22/2024 - negative covid/Flu/RSV. Sister reports seemed to improve, but yesterday cough seems worse. Coughing so hard he will throw up. Temp yesterday was 100. Not eating well and+ for rhinorrhea. Sister reports does not seem short of breath, having difficulty breathing or diarrhea. Has not given him any OTC medications for symptoms Previous Medical History PAST MEDICAL HISTORY Diagnosis Date Autism GERD (gastroesophageal reflux disease) Mental disability Schizophrenia (HCC) Underweight due to inadequate caloric intake Vitamin D deficiency Previous Surgical History No past surgical history on file. Family History No family history on file. Patient Allergies ALLERGIES No Known Allergies Current Medications Current Outpatient Medications on File Prior to Visit Medication Sig clarithromycin (BIAXIN) 250 mg tablet Take by mouth two times a day. Dr Chong amoxicillin (AMOXIL) 250 mg/5 mL suspension Take by mouth three times a day. Dr Chong KAOPECTATE, ATTAPULGITE, ORAL Take by mouth. Dr Chong Lactobac no.41/Bifidobact no.7 (PROBIOTIC-10 ORAL) Take by mouth. Gummies - Dr. Chong cetirizine HCl (ZYRTEC) 10 mg chewable tablet Take 1 tablet by mouth once daily. ferrous sulfate 220 mg/5 mL elix Take 7.4 mL by mouth once daily. calcium carbonate (CALCIUM ANTACID) 500 mg chew Take 2 tablets by mouth once daily. cyanocobalamin (VITAMIN B-12) 1,000 mcg tab Take 1 tablet by mouth once daily. Takes as a gummie selenium 50 mcg tab Take 1 tablet by mouth once daily. Takes as a gummie Zinc Sulfate 25 mg zinc (110 mg) tab Take 25 tablets by mouth once daily. Takes as a gummie omega-3 DHA-EPA (FISH OIL) 1,200 (144-216) mg capsule Take 1 capsule by mouth daily with breakfast. ascorbic acid, vitamin C, (VITAMIN C) 500 mg tablet Take 1 tablet by mouth once daily. ergocalciferol 50,000 unit capsule (VITAMIN D2, DRISDOL) Take 1 capsule by mouth one time a week. diphenhydrAMINE (BENADRYL) 25 mg capsule Take 1-2 capsules by mouth at bedtime as needed. food supplemt, lactose-reduced (BOOST MEN) 0.08 gram- 0.9 kcal/mL liqd Take 1 Bottle by mouth two times a day before meals. mirtazapine (REMERON) 15 mg tablet Take 15 mg by mouth daily at bedtime. melatonin 10 mg chew Take 1 Each by mouth once daily. pantoprazole DR (PROTONIX) 40 mg tablet Take 1 tablet by mouth once daily. (capsule) fluticasone (FLONASE) 50 mcg/actuation nasal spray Use 1 Casanova in each nostril once daily. loratadine 10 mg dissolvable tablet Take 10 mg by mouth once daily. OLANZapine orally disintegrating (ZYPREXA ZYDIS) 5 mg disintegrating tablet Take 5 mg by mouth daily at bedtime. Nutritional Supplements (ENSURE PUDDING) pudg Take 113 g by mouth twice daily. No current facility-administered medications on file prior to visit. Social History Social History Tobacco Use Smoking status: Never Smokeless tobacco: Never Substance Use Topics Alcohol use: Never Drug use: Never Review of Symptoms REVIEW OF SYSTEMS Negative other than HPI EXAM: BP 122/94 Pulse 89 Temp 37.1 C (98.7 F) (Temporal Artery) Resp 18 Wt 70.8 kg (156 lb) SpO2 94% BMI 22.38 kg/m General Appearance: Well appearing, alert, in no acute distress, well-hydrated, well nourished.. Skin: Skin color, texture, turgor normal, no suspicious rashes or lesions. Eyes: Anicteric sclera. Ears: External ears normal, canals clear. Oropharynx: patient will not open mouth to examine. Neck: Supple, no adenopathy Lungs: Lungs clear to auscultation. No wheezing, rhonchi, rales. No cough noted Heart: RRR without murmur, gallop, or rubs. No ectopy. Health Maintenance List Depression Screening Never done Anxiety Screening Never done HIV Screening Never done Colorectal Cancer Screening Never done Covid-19 Vaccine( - 2023- season) Never done Hepatitis B Vaccine(2 of 3 - 19+ 3-dose series) due on 03/31/2024 Diabetes Screening due on 07/24/2026 Lipid Screening due on 07/24/2028 DTaP,Tdap,Td Vaccine(2 - Td or Tdap) due on 03/03/2034 Influenza Vaccine Completed Hepatitis C Screening Completed ASSESSMENT/PLAN: 1. Acute cough - ICD9: 786.2, ICD10: R05.1 - no red flag symptoms or exam findings - red flag symptoms discussed, verbalizes understanding - may use OTC cough and cold preparations as directed on packaging - push fluids to help with tenacity of sputum - XR CHEST 2V FRONTAL/LAT - COVID & INFLUENZA A/B & RSV PCR, ROUTINE - follow-up if fails to improve to ER with red flag symptoms Donna Aponte APRN.UTILITY ENGINEER Prescription instructions reviewed with patient as applicable. Patient advised if symptoms do not improve or if symptoms worsen sooner, to contact their primary care physician. Potential red flag symptoms discussed with the patient. Reviewed appropriate action plan to take if red flag symptoms occur. Patient agreeable to treatment plan. Medical Decision Making: Problems: Low: Acute, uncomplicated illness or injury Data: Unique test(s) ordered: 2 Risk: Moderate: Moderate risk from testing/treatment Medical Decision Making Level: 3 - Low [facility] Tele[facility] encounter Note * Telephone Encounter - Holley Bashir MA - 06/30/2024 3:54 PM EST Left message notifying chiki that order was faxed over to [facility] for her Holley Bashir MA [facility]02-11-[facility] Miscellaneous Notes* Telephone Encounter - Holley Bashir MA - 06/30/2024 3:54 PM EST Left message notifying chiki that order was faxed over to [facility] (formerly [facility]3] for her Holley BashirADRI * Telephone Encounter - Levar Greer LPN - 06/30/2024 2:08 PM EST Chiki called and pt is having problems getting into the shower and she is requesting a shower chair. Please send rx to [facility]. Please call Chiki when this has been sent. Levar Greer LPN [facility] Telephone encounter Note * Telephone Encounter - Levar Greer LPN - 06/30/2024 2:08 PM EST Chiki called and pt is having problems getting into the shower and she is requesting a shower chair. Please send rx to [facility]. Please call Chiki when this has been sent. Levar Greer LPN [facility]02-04[facility] Telephone encounter Note* Telephone Encounter - Emperatriz Tello OCCA - 06/23/2024 8:04 AM EST TC to patients Chiki de leon, who verbalized understanding of providers message below. KAYLEIGH Uribe [facility]02-04-2025 Miscellaneous Notes* Telephone Encounter - Emperatriz Tello OCCA - 06/23/2024 8:04 AM EST TC to patients Chiki de leon, who verbalized understanding of providers message below. KAYLEIGH Uribe * Telephone Encounter - Niraj Andino APRN.CNP - 06/23/2024 7:52 AM EST Please let patient know their covid/flu/rsv is negative. [facility] Telephone encounter Note * Telephone Encounter - Niraj Andino APRN.CNP - 06/23/2024 7:52 AM EST Please let patient know their covid/flu/rsv is negative. [facility] NoteHNO ID: [id number] Author: NIRAJ ANDINO APRN.CNP Service: ? Author Type: Nurse Practitioner Type: Progress Notes Filed: 06/22/2024 16:37 Note Text: Chief Complaint Patient presents with: Cough Rhinitis HPI Arvind Domínguez is a 49 year old male who presents here today for Above Complaints.. Patient present for cough, ear pain and congestion x2 days. Patient's sister reports multiple people are sick in the home. He has not been coughing anything up and has been rubbing his nose frequently. Pts sister believes he is having frequent nasal drainage. Pts sister has also notices he is holding his head believes he could have an ear infection. He has had some episodes of diarrhea and constipation. Pt sister states he has had trouble sleeping. She has not tried giving him anything for his symptoms. Pt sister denies vomiting, eye drainage, wheezing and fever. Past medical history, appointments, medications, allergies reviewed. Previous Medical History PAST MEDICAL HISTORY Diagnosis Date Autism GERD (gastroesophageal reflux disease) Mental disability Schizophrenia (HCC) Underweight due to inadequate caloric intake Vitamin D deficiency Previous Surgical History No past surgical history on file. Family History No family history on file. Patient Allergies ALLERGIES No Known Allergies Current Medications Current Outpatient Medications on File Prior to Visit Medication Sig cetirizine HCl (ZYRTEC) 10 mg chewable tablet Take 1 tablet by mouth once daily. ferrous sulfate 220 mg/5 mL elix Take 7.4 mL by mouth once daily. calcium carbonate (CALCIUM ANTACID) 500 mg chew Take 2 tablets by mouth once daily. cyanocobalamin (VITAMIN B-12) 1,000 mcg tab Take 1 tablet by mouth once daily. Takes as a gummie selenium 50 mcg tab Take 1 tablet by mouth once daily. Takes as a gummie Zinc Sulfate 25 mg zinc (110 mg) tab Take 25 tablets by mouth once daily. Takes as a gummie omega-3 DHA-EPA (FISH OIL) 1,200 (144-216) mg capsule Take 1 capsule by mouth daily with breakfast. ascorbic acid, vitamin C, (VITAMIN C) 500 mg tablet Take 1 tablet by mouth once daily. ergocalciferol 50,000 unit capsule (VITAMIN D2, DRISDOL) Take 1 capsule by mouth one time a week. diphenhydrAMINE (BENADRYL) 25 mg capsule Take 1-2 capsules by mouth at bedtime as needed. food supplemt, lactose-reduced (BOOST MEN) 0.08 gram- 0.9 kcal/mL liqd Take 1 Bottle by mouth two times a day before meals. mirtazapine (REMERON) 15 mg tablet Take 15 mg by mouth daily at bedtime. melatonin 10 mg chew Take 1 Each by mouth once daily. pantoprazole DR (PROTONIX) 40 mg tablet Take 1 tablet by mouth once daily. (capsule) fluticasone (FLONASE) 50 mcg/actuation nasal spray Use 1 Casanova in each nostril once daily. loratadine 10 mg dissolvable tablet Take 10 mg by mouth once daily. OLANZapine orally disintegrating (ZYPREXA ZYDIS) 5 mg disintegrating tablet Take 5 mg by mouth daily at bedtime. Nutritional Supplements (ENSURE PUDDING) pudg Take 113 g by mouth twice daily. No current facility-administered medications on file prior to visit. Social History Social History Tobacco Use Smoking status: Never Smokeless tobacco: Never Substance Use Topics Alcohol use: Never Drug use: Never Review of Symptoms REVIEW OF SYSTEMS GENERAL: No weight loss, malaise or fevers RESPIRATORY: Dyspnea, Wheezing, Shortness of breath, positive: non-productive cough CARDIOVASCULAR: Negative for chest pain, leg swelling, hypertension, CHF or palpitations EXAM: BP 133/91 Pulse 84 Wt 72.6 kg (160 lb) SpO2 98% BMI 22.96 kg/m? General Appearance: Well appearing, alert, in no acute distress, well-hydrated, well nourished.. Ears: External ears normal, canals clear. Lungs: Lungs clear to auscultation. No wheezing, rhonchi, rales.. Heart: RRR without murmur, gallop, or rubs. No ectopy. Health Maintenance List Depression Screening Never done Anxiety Screening Never done HIV Screening Never done Colorectal Cancer Screening Never done Covid-19 Vaccine( season) Never done Hepatitis B Vaccine(2 of 3 - 19+ 3-dose series) due on 03/31/2024 Diabetes Screening due on 07/24/2026 Lipid Screening due on 07/24/2028 DTaP,Tdap,Td Vaccine(2 - Td or Tdap) due on 03/03/2034 Influenza Vaccine Completed Hepatitis C Screening Completed ASSESSMENT/PLAN: 1. URI, acute - ICD9: 465.9, ICD10: J06.9 - Discussed viral etiology and rationale for treatment. - Symptomatic treatment with prn analgesia - Supportive care with fluids and rest - The patient may also use OTC cough and cold meds as needed, warm salt water gargles, throat lozenges and/or OTC throat spray as needed, and nasal saline gtts and suction prn. - Follow up in 3-5 days if symptoms persist or sooner if worsening of symptoms - COVID AND INFLUENZA A/B AND RSV PCR, ROUTINE Niraj Andino APRN.[facility]02-03-2025 History of Present illness Narrative* Niraj Andino APRN.[facility] - 06/22/2024 4:19 PM EST Chief Complaint Patient presents with: Cough Rhinitis HPI Arvind Domínguez is a 49 year old male who presents here today for Above Complaints.. Patient present for cough, ear pain and congestion x2 days. Patient's sister reports multiple people are sick in the home. He has not been coughing anything up and has been rubbing his nose frequently. Pts sister believes he is having frequent nasal drainage. Pts sister has also notices he is holding his head believes he could have an ear infection. He has had some episodes of diarrhea and constipation. Pt sister states he has had trouble sleeping. She has not tried giving him anything for his symptoms. Pt sister denies vomiting, eye drainage, wheezing and fever. Past medical history, appointments, medications, allergies reviewed. Previous Medical History PAST MEDICAL HISTORY Diagnosis Date Autism GERD (gastroesophageal reflux disease) Mental disability Schizophrenia (HCC) Underweight due to inadequate caloric intake Vitamin D deficiency Previous Surgical History No past surgical history on file. Family History No family history on file. Patient Allergies ALLERGIES No Known Allergies Current Medications Current Outpatient Medications on File Prior to Visit Medication Sig cetirizine HCl (ZYRTEC) 10 mg chewable tablet Take 1 tablet by mouth once daily. ferrous sulfate 220 mg/5 mL elix Take 7.4 mL by mouth once daily. calcium carbonate (CALCIUM ANTACID) 500 mg chew Take 2 tablets by mouth once daily. cyanocobalamin (VITAMIN B-12) 1,000 mcg tab Take 1 tablet by mouth once daily. Takes as a gummie selenium 50 mcg tab Take 1 tablet by mouth once daily. Takes as a gummie Zinc Sulfate 25 mg zinc (110 mg) tab Take 25 tablets by mouth once daily. Takes as a gummie omega-3 DHA-EPA (FISH OIL) 1,200 (144-216) mg capsule Take 1 capsule by mouth daily with breakfast. ascorbic acid, vitamin C, (VITAMIN C) 500 mg tablet Take 1 tablet by mouth once daily. ergocalciferol 50,000 unit capsule (VITAMIN D2, DRISDOL) Take 1 capsule by mouth one time a week. diphenhydrAMINE (BENADRYL) 25 mg capsule Take 1-2 capsules by mouth at bedtime as needed. food supplemt, lactose-reduced (BOOST MEN) 0.08 gram- 0.9 kcal/mL liqd Take 1 Bottle by mouth two times a day before meals. mirtazapine (REMERON) 15 mg tablet Take 15 mg by mouth daily at bedtime. melatonin 10 mg chew Take 1 Each by mouth once daily. pantoprazole DR (PROTONIX) 40 mg tablet Take 1 tablet by mouth once daily. (capsule) fluticasone (FLONASE) 50 mcg/actuation nasal spray Use 1 Casanova in each nostril once daily. loratadine 10 mg dissolvable tablet Take 10 mg by mouth once daily. OLANZapine orally disintegrating (ZYPREXA ZYDIS) 5 mg disintegrating tablet Take 5 mg by mouth daily at bedtime. Nutritional Supplements (ENSURE PUDDING) pudg Take 113 g by mouth twice daily. No current facility-administered medications on file prior to visit. Social History Social History Tobacco Use Smoking status: Never Smokeless tobacco: Never Substance Use Topics Alcohol use: Never Drug use: Never Review of Symptoms REVIEW OF SYSTEMS GENERAL: No weight loss, malaise or fevers RESPIRATORY: Dyspnea, Wheezing, Shortness of breath, positive: non-productive cough CARDIOVASCULAR: Negative for chest pain, leg swelling, hypertension, CHF or palpitations EXAM: BP 133/91 Pulse 84 Wt 72.6 kg (160 lb) SpO2 98% BMI 22.96 kg/m General Appearance: Well appearing, alert, in no acute distress, well-hydrated, well nourished.. Ears: External ears normal, canals clear. Lungs: Lungs clear to auscultation. No wheezing, rhonchi, rales.. Heart: RRR without murmur, gallop, or rubs. No ectopy. Health Maintenance List Depression Screening Never done Anxiety Screening Never done HIV Screening Never done Colorectal Cancer Screening Never done Covid-19 Vaccine( - season) Never done Hepatitis B Vaccine(2 of 3 - 19+ 3-dose series) due on 03/31/2024 Diabetes Screening due on 07/24/2026 Lipid Screening due on 07/24/2028 DTaP,Tdap,Td Vaccine(2 - Td or Tdap) due on 03/03/2034 Influenza Vaccine Completed Hepatitis C Screening Completed ASSESSMENT/PLAN: 1. URI, acute - ICD9: 465.9, ICD10: J06.9 - Discussed viral etiology and rationale for treatment. - Symptomatic treatment with prn analgesia - Supportive care with fluids and rest - The patient may also use OTC cough and cold meds as needed, warm salt water gargles, throat lozenges and/or OTC throat spray as needed, and nasal saline gtts and suction prn. - Follow up in 3-5 days if symptoms persist or sooner if worsening of symptoms - COVID & INFLUENZA A/B & RSV PCR, ROUTINE Niraj Andino APRN.UTILITY ENGINEER [facility] Medical Records Department [address] [place] [address] History Physical Exam 06/18/24 0816 MR#: [id number] Acct: [id number] Name: ARVIND DOMÍNGUEZ Rep #: [id number] : 1975 49 From: Osman Chong DO PCP: Niraj Andino [employer] Status:[facility] Location: [place] [address] HPI - General General Date of Admission: 06/18/24 Date of Service: 06/18/24 Chief Complaint: abdominal pain HPI Narrative ARVIND DOMÍNGUEZ, is a 48 M who presents for endoscopic evaluation of pain. Pt is pretty much non verbal and is accompanied by his sister who provides the majority of the history. Pt has periods of epigastric pain and lack of appetite. He does take protonix but she feels this is no helping as he will still rub his epigastrium. He has had an EGD before many years ago. He does belch often and loudly. His stomach also will look bloated on occasion in his sister opinion. He has constipation alternating with looser stools. This is sporadic and hard to predict therefore he does not take anything for the constipation. [facility] Medical History Rash Low iron Non-smoker Schizophrenia GERD (gastroesophageal reflux disease) Autism Home Medications ???Medication ???Instructions ???Recorded ???Last Taken ???Type cholecalciferol (vitamin D3) 25 25 mcg PO DAILY 12/06/22 Unknown H istory mcg (1,000 unit) capsule olanzapine 5 mg disintegrating 5 mg PO QHS #30 tabs 12/06/22 Unkn own Rx tablet omeprazole 40 mg capsule,delayed 40 mg PO DAILY #30 caps 12/06/22 U nknown Rx release ondansetron 8 mg disintegrating 8 mg PO Q8H PRN nausea and 4 Unknown Rx tablet vomiting #12 tabs dicyclomine 20 mg tablet 20 mg PO BID PRN abdominal pain Unknown Rx #14 tabs sucralfate 100 mg/mL oral 10 ml PO BID 8 weeks #1,120 mL Unknown Rx suspension cetirizine 10 mg tablet (24Hour 10 mg PO DAILY 06/17/24 Unknown Hi story Allergy) ferrous sulfate 220 mg (44 mg 325.6 mg PO DAILY 06/17/24 Unknown History iron)/5 mL oral solution melatonin 10 mg capsule 10 mg PO QHS 06/17/24 Unknown Hist ory mirtazapine 15 mg disintegrating 15 mg PO DAILY 06/17/24 Unknown Hi story tablet Allergy/AdvReac Type Severity Reaction Status Date / Time No Known Allergies Allergy Verified 06/17/24 10:03 Family History Mother Lung cancer Heart disease Father Lung cancer Surgical History History of esophagogastroduodenoscopy (EGD) Social History household members: family Smoking Status: Never smoker ROS Constitutional Constitutional: Denies fatigue, fever(s), poor appetite, weight gain or weight loss Gastrointestinal Gastrointestinal: Denies belching, bloating, change in bowel habits, change in stool character, chewing difficulty, coffee ground emesis, constipation, cramping, diarrhea, dyspepsia, dysphagia, early satiety, excessive flatus, fecal incontinence, heartburn, hematemesis, hematochezia, hemorrhoids, loose stools, melena, nausea, odynophagia, rectal bleeding, tenesmus, vomiting or weight changes Vital Signs Vital Signs Vital Signs: 06/18/24 07:49 06/18/24 07:49 06/18/24 08:09 Temperature 98.3 F 98.3 F Temperature Source Temporal Pulse Rate 71 71 Respiratory Rate 18 18 Respiratory Pattern Normal Blood Pressure 128/90 H 128/90 H Blood Pressure Mean 102 Blood Pressure Source Monitor Blood Pressure Position Semi-Fowlers Blood Pressure Location Left Arm Pulse Ox 96 96 Oxygen Delivery Method Room Air Room Air Weight Weight: 163 lb 2.273 oz Body Mass Index (BMI) 21.5 Physical Exam Const alert, oriented x3, no apparent distress and healthy appearing General Appearance: cooperative GI normal to inspection, nondistended, normoactive bowel sounds, soft to palpation, non-tender and non- distended Percussion: normal to percussion Rectal Exam: deferred Assessment Plan Assessment/Plan (1) Abdominal pain: PLAN: Assessment and Plan (1) Gastroesophageal reflux disease: (2) Constipation: Status: Acute Plan: This is a 48 yo male pt with hx of autism and schizophrenia. His sister provides the hx. He has had issues with epigastric pain for some time. I will order an EGD to assess his upper GI tract for gastritis, esophagitis or ulcer. I will prescribe him sucralfate in the meantime. He does also have alternating bowels. I do not feel a colonoscopy would give us much information therefore I do not feel he needs to undergo at this time as the prep would be difficult for him. His sister is agreeable to this as she m (more content not included)...[facility]12-03-2024 NoteHNO ID: [id number] Author: NIRAJ ANDINO APRN.UTILITY ENGINEER Service: ? Author Type: Nurse Practitioner Type: Progress Notes Filed: 04/21/2024 11:18 Note Text: Chief Complaint Patient presents with: Eye Problem: Left eye HPI Arvind Domínguez is a 48 year old male who presents here today for Above Complaints.. Patient presents for 2 day hx of left eye redness, drainage, and itching. Patient's sister also reports concerns that BP is elevated, mostly during times of agitation. Past medical history, appointments, medications, allergies reviewed. Previous Medical History PAST MEDICAL HISTORY Diagnosis Date Autism GERD (gastroesophageal reflux disease) Mental disability Schizophrenia (HCC) Underweight due to inadequate caloric intake Vitamin D deficiency Previous Surgical History No past surgical history on file. Family History No family history on file. Patient Allergies ALLERGIES No Known Allergies Current Medications Current Outpatient Medications on File Prior to Visit Medication Sig cetirizine HCl (ZYRTEC) 10 mg chewable tablet Take 1 tablet by mouth once daily. ferrous sulfate 220 mg/5 mL elix Take 7.4 mL by mouth once daily. calcium carbonate (CALCIUM ANTACID) 500 mg chew Take 2 tablets by mouth once daily. cyanocobalamin (VITAMIN B-12) 1,000 mcg tab Take 1 tablet by mouth once daily. Takes as a gummie selenium 50 mcg tab Take 1 tablet by mouth once daily. Takes as a gummie Zinc Sulfate 25 mg zinc (110 mg) tab Take 25 tablets by mouth once daily. Takes as a gummie omega-3 DHA-EPA (FISH OIL) 1,200 (144-216) mg capsule Take 1 capsule by mouth daily with breakfast. ascorbic acid, vitamin C, (VITAMIN C) 500 mg tablet Take 1 tablet by mouth once daily. ergocalciferol 50,000 unit capsule (VITAMIN D2, DRISDOL) Take 1 capsule by mouth one time a week. diphenhydrAMINE (BENADRYL) 25 mg capsule Take 1-2 capsules by mouth at bedtime as needed. food supplemt, lactose-reduced (BOOST MEN) 0.08 gram- 0.9 kcal/mL liqd Take 1 Bottle by mouth two times a day before meals. mirtazapine (REMERON) 15 mg tablet Take 15 mg by mouth daily at bedtime. melatonin 10 mg chew Take 1 Each by mouth once daily. pantoprazole DR (PROTONIX) 40 mg tablet Take 1 tablet by mouth once daily. (capsule) fluticasone (FLONASE) 50 mcg/actuation nasal spray Use 1 Casanova in each nostril once daily. loratadine 10 mg dissolvable tablet Take 10 mg by mouth once daily. OLANZapine orally disintegrating (ZYPREXA ZYDIS) 5 mg disintegrating tablet Take 5 mg by mouth daily at bedtime. Nutritional Supplements (ENSURE PUDDING) pudg Take 113 g by mouth twice daily. No current facility-administered medications on file prior to visit. Social History Social History Tobacco Use Smoking status: Never Smokeless tobacco: Never Substance Use Topics Alcohol use: Never Drug use: Never Review of Symptoms REVIEW OF SYSTEMS SEE HPI EXAM: BP 143/89 Pulse 75 Resp 14 Wt 75.3 kg (166 lb) BMI 23.82 kg/m? General Appearance: Well appearing, alert, in no acute distress, well-hydrated, well nourished.. Eyes: Lower conjunctiva red, swollen. Yellow purulent drainage noted. Anicteric sclera. Pupils are equally round and reactive to light. Extraocular movements are intact. Health Maintenance List Depression Screening Never done Anxiety Screening Never done HIV Screening Never done Colorectal Cancer Screening Never done Covid-19 Vaccine(2023- season) Never done Hepatitis B Vaccine(2 of 3 - 19+ 3-dose series) due on 03/31/2024 Diabetes Screening due on 07/24/2026 Lipid Screening due on 07/24/2028 DTaP,Tdap,Td Vaccine(2 - Td or Tdap) due on 03/03/2034 Influenza Vaccine Completed Hepatitis C Screening Completed ASSESSMENT/PLAN: 1. Bacterial conjunctivitis - ICD9: 372.39, 041.9, ICD10: H10.9 Bacterial - see medication orders - course and contagiousness issues discussed, including hand washing. - Instructed to call if high fever, development of periorbital redness or swelling, eye pain, visual changes, concerns or if symptoms persist. - POLYMYXIN B SULFATE 10,000 UNIT-TRIMETHOPRIM 1 MG/ML EYE DROPS Niraj Andino APRN.[facility]12-03-2024 History of Present illness Narrative* Niraj Andino APRN.UTILITY ENGINEER - 04/21/2024 11:11 AM EST Chief Complaint Patient presents with: Eye Problem: Left eye HPI Arvind Domínguez is a 48 year old male who presents here today for Above Complaints.. Patient presents for 2 day hx of left eye redness, drainage, and itching. Patient's sister also reports concerns that BP is elevated, mostly during times of agitation. Past medical history, appointments, medications, allergies reviewed. Previous Medical History PAST MEDICAL HISTORY Diagnosis Date Autism GERD (gastroesophageal reflux disease) Mental disability Schizophrenia (HCC) Underweight due to inadequate caloric intake Vitamin D deficiency Previous Surgical History No past surgical history on file. Family History No family history on file. Patient Allergies ALLERGIES No Known Allergies Current Medications Current Outpatient Medications on File Prior to Visit Medication Sig cetirizine HCl (ZYRTEC) 10 mg chewable tablet Take 1 tablet by mouth once daily. ferrous sulfate 220 mg/5 mL elix Take 7.4 mL by mouth once daily. calcium carbonate (CALCIUM ANTACID) 500 mg chew Take 2 tablets by mouth once daily. cyanocobalamin (VITAMIN B-12) 1,000 mcg tab Take 1 tablet by mouth once daily. Takes as a gummie selenium 50 mcg tab Take 1 tablet by mouth once daily. Takes as a gummie Zinc Sulfate 25 mg zinc (110 mg) tab Take 25 tablets by mouth once daily. Takes as a gummie omega-3 DHA-EPA (FISH OIL) 1,200 (144-216) mg capsule Take 1 capsule by mouth daily with breakfast. ascorbic acid, vitamin C, (VITAMIN C) 500 mg tablet Take 1 tablet by mouth once daily. ergocalciferol 50,000 unit capsule (VITAMIN D2, DRISDOL) Take 1 capsule by mouth one time a week. diphenhydrAMINE (BENADRYL) 25 mg capsule Take 1-2 capsules by mouth at bedtime as needed. food supplemt, lactose-reduced (BOOST MEN) 0.08 gram- 0.9 kcal/mL liqd Take 1 Bottle by mouth two times a day before meals. mirtazapine (REMERON) 15 mg tablet Take 15 mg by mouth daily at bedtime. melatonin 10 mg chew Take 1 Each by mouth once daily. pantoprazole DR (PROTONIX) 40 mg tablet Take 1 tablet by mouth once daily. (capsule) fluticasone (FLONASE) 50 mcg/actuation nasal spray Use 1 Casanova in each nostril once daily. loratadine 10 mg dissolvable tablet Take 10 mg by mouth once daily. OLANZapine orally disintegrating (ZYPREXA ZYDIS) 5 mg disintegrating tablet Take 5 mg by mouth daily at bedtime. Nutritional Supplements (ENSURE PUDDING) pudg Take 113 g by mouth twice daily. No current facility-administered medications on file prior to visit. Social History Social History Tobacco Use Smoking status: Never Smokeless tobacco: Never Substance Use Topics Alcohol use: Never Drug use: Never Review of Symptoms REVIEW OF SYSTEMS SEE HPI EXAM: BP 143/89 Pulse 75 Resp 14 Wt 75.3 kg (166 lb) BMI 23.82 kg/m General Appearance: Well appearing, alert, in no acute distress, well-hydrated, well nourished.. Eyes: Lower conjunctiva red, swollen. Yellow purulent drainage noted. Anicteric sclera. Pupils are equally round and reactive to light. Extraocular movements are intact. Health Maintenance List Depression Screening Never done Anxiety Screening Never done HIV Screening Never done Colorectal Cancer Screening Never done Covid-19 Vaccine(2023- season) Never done Hepatitis B Vaccine(2 of 3 - 19+ 3-dose series) due on 03/31/2024 Diabetes Screening due on 07/24/2026 Lipid Screening due on 07/24/2028 DTaP,Tdap,Td Vaccine(2 - Td or Tdap) due on 03/03/2034 Influenza Vaccine Completed Hepatitis C Screening Completed ASSESSMENT/PLAN: 1. Bacterial conjunctivitis - ICD9: 372.39, 041.9, ICD10: H10.9 Bacterial - see medication orders - course and contagiousness issues discussed, including hand washing. - Instructed to call if high fever, development of periorbital redness or swelling, eye pain, visual changes, concerns or if symptoms persist. - POLYMYXIN B SULFATE 10,000 UNIT-TRIMETHOPRIM 1 MG/ML EYE DROPS Niraj Andino APRN.CNP [facility] Telephone encounter Note * Telephone Encounter - Mary Gibson MA - 04/03/2024 3:23 PM EST Call to Chiki and notified her of results and recommendations below. She verbalized understanding. Mary Gibson MA [facility]11-15-2024 Miscellaneous Notes* Telephone Encounter - Mary Gibson MA - 04/03/2024 3:23 PM EST Call to Chiki and notified her of results and recommendations below. She verbalized understanding. Mary Gibson MA * Telephone Encounter - Niraj Andino APRN.CNP - 04/03/2024 1:30 PM EST Please let patient's sister know his vitamin d has improved but is still low, continue supplementation. Patient also has high eosinophils which correlates with allergies. Would recommend switching allergy medication. I have sent in a new prescription. [facility]24 Telephone encounter Note * Telephone Encounter - Niraj Andino APRN.CNP - 04/03/2024 1:30 PM EST Please let patient's sister know his vitamin d has improved but is still low, continue supplementation. Patient also has high eosinophils which correlates with allergies. Would recommend switching allergy medication. I have sent in a new prescription. [facility]11-14-2024 Telephone encounter Note* Telephone Encounter - Mary Gibson MA - 04/02/2024 4:07 PM EST Called and spoke with Chiki. Notified her of results and to update office if not improved by Saturday. She verbalized understanding. Mary Gibson MA [facility]11-14-2024 Miscellaneous Notes* Telephone Encounter - Mary Gibson MA - 04/02/2024 4:07 PM EST Called and spoke with Chiki. Notified her of results and to update office if not improved by Saturday. She verbalized understanding. Mary Gibson MA * Telephone Encounter - Niraj Andino APRN.CNP - 04/02/2024 3:35 PM EST Please let patient know their xray is normal. Please let me know if he is not better by Saturday. [facility]11-[facility]-2024 Telephone encounter Note * Telephone Encounter - Niraj Andino APRN.CNP - 04/02/2024 3:35 PM EST Please let patient know their xray is normal. Please let me know if he is not better by Saturday. [facility]11-14-[facility] History of Present illness Narrative* Klaus Laughlin RT(R) - 04/02/2024 3:30 PM EST Radiology Service Progress Note PATIENT NAME: Arvind Domínguez DATE OF SERVICE: April 02, 2024 TIME: 3:08 PM PATIENT IDENTITY VERIFICATION COMPLETED USING TWO (2) IDENTIFIERS: Name and Date of confirmedby patient verbally. FALL SCREENING: Has the patient had 2 falls in the last year or 1 fall with injury or currently using an Ambulatory Assistive Device (Walker, Cane, Wheelchair, Crutches, etc.)? Yes, Patient High Riskfor Falls What interventions were put in place to prevent falls during this visit? Increased Observations by Caregivers and caregiver with patient in room PATIENT GENDER DATA: Male PATIENT RELEVANT IMPLANT DATA REVIEWED: Not Applicable PATIENT PRESENTS WITH AN IMPLANTABLE OR ATTACHED PILEDRIVER CARPENTER: No RADIOLOGY DEPARTMENT: General X-ray: Exam(s) Completed: Chest X-Ray PERIPHERAL IV DATA: Not applicable SIGNED BY: RT Caterina(Madeleine) April 02, 2024 3:08 PM documented in this encounterA[facility]11-14-2024 NoteHNO ID: [id number] Author: KLAUS LAUGHLIN RT(R) Service: Radiology Author Type: Technologist Type: Progress Notes Filed: 04/02/2024 15:17 Note Text: Radiology Service Progress Note PATIENT NAME: Arvind Domínguez DATE OF SERVICE: April 02, 2024 TIME: 3:08 PM PATIENT IDENTITY VERIFICATION COMPLETED USING TWO (2) IDENTIFIERS: Name and Date of confirmed by patient verbally. FALL SCREENING: Has the patient had 2 falls in the last year or 1 fall with injury or currently using an Ambulatory Assistive Device (Walker, Cane, Wheelchair, Crutches, etc.)? Yes, Patient High Risk for Falls What interventions were put in place to prevent falls during this visit? Increased Observations by Caregivers and caregiver with patient in room PATIENT GENDER DATA: Male PATIENT RELEVANT IMPLANT DATA REVIEWED: Not Applicable PATIENT PRESENTS WITH AN IMPLANTABLE OR ATTACHED PILEDRIVER CARPENTER: No RADIOLOGY DEPARTMENT: General X-ray: Exam(s) Completed: Chest X-Ray PERIPHERAL IV DATA: Not applicable SIGNED BY: RT Caterina(Madeleine) April 02, 2024 3:08 [facility]11-14-2024 NoteHNO ID: [id number] Author: NIRAJ ANDINO APRN.UTILITY ENGINEER Service: ? Author Type: Nurse Practitioner Type: Progress Notes Filed: 04/02/2024 14:59 Note Text: Chief Complaint Patient presents with: Cough: X1 week HPI Arvind Domínguez is a 48 year old male who presents here today for Above Complaints.. Patient presents for cough, fatigue, and congestion x1 week. Patient's sister reports he is fatigued all the time. Was taken off lexapro to see if that was causing fatigue but there has been minimal improvement. Patient has been agitated more as well. Past medical history, appointments, medications, allergies reviewed. Previous Medical History PAST MEDICAL HISTORY Diagnosis Date Autism GERD (gastroesophageal reflux disease) Mental disability Schizophrenia (HCC) Underweight due to inadequate caloric intake Vitamin D deficiency Previous Surgical History No past surgical history on file. Family History No family history on file. Patient Allergies ALLERGIES No Known Allergies Current Medications Current Outpatient Medications on File Prior to Visit Medication Sig escitalopram oxalate (LEXAPRO) 5 mg/5 mL solution Take 5 mg by mouth daily at bedtime. (Patient not taking: Reported on 04/02/2024) ferrous sulfate 220 mg/5 mL elix Take 7.4 mL by mouth once daily. calcium carbonate (CALCIUM ANTACID) 500 mg chew Take 2 tablets by mouth once daily. cyanocobalamin (VITAMIN B-12) 1,000 mcg tab Take 1 tablet by mouth once daily. Takes as a gummie selenium 50 mcg tab Take 1 tablet by mouth once daily. Takes as a gummie Zinc Sulfate 25 mg zinc (110 mg) tab Take 25 tablets by mouth once daily. Takes as a gummie omega-3 DHA-EPA (FISH OIL) 1,200 (144-216) mg capsule Take 1 capsule by mouth daily with breakfast. ascorbic acid, vitamin C, (VITAMIN C) 500 mg tablet Take 1 tablet by mouth once daily. ergocalciferol 50,000 unit capsule (VITAMIN D2, DRISDOL) Take 1 capsule by mouth one time a week. diphenhydrAMINE (BENADRYL) 25 mg capsule Take 1-2 capsules by mouth at bedtime as needed. food supplemt, lactose-reduced (BOOST MEN) 0.08 gram- 0.9 kcal/mL liqd Take 1 Bottle by mouth two times a day before meals. mirtazapine (REMERON) 15 mg tablet Take 15 mg by mouth daily at bedtime. melatonin 10 mg chew Take 1 Each by mouth once daily. pantoprazole DR (PROTONIX) 40 mg tablet Take 1 tablet by mouth once daily. (capsule) fluticasone (FLONASE) 50 mcg/actuation nasal spray Use 1 Casanova in each nostril once daily. loratadine 10 mg dissolvable tablet Take 10 mg by mouth once daily. OLANZapine orally disintegrating (ZYPREXA ZYDIS) 5 mg disintegrating tablet Take 5 mg by mouth daily at bedtime. Nutritional Supplements (ENSURE PUDDING) pudg Take 113 g by mouth twice daily. No current facility-administered medications on file prior to visit. Social History Social History Tobacco Use Smoking status: Never Smokeless tobacco: Never Substance Use Topics Alcohol use: Never Drug use: Never Review of Symptoms REVIEW OF SYSTEMS SEE HPI EXAM: BP 137/87 Pulse 99 Wt 73.5 kg (162 lb) SpO2 97% BMI 23.24 kg/m? General Appearance: Well appearing, alert, in no acute distress, well-hydrated, well nourished.. Ears: External ears normal, canals clear. Nose/Sinuses: Nares normal, septum midline, mucosa normal, no drainage or sinus tenderness. Oropharynx: Lips, mucosa, and tongue normal, teeth and gums normal, oropharynx normal. Neck: Supple, no adenopathy; thyroid symmetric, normal size, no bruits. Lungs: Lungs clear to auscultation. No wheezing, rhonchi, rales.. Heart: RRR without murmur, gallop, or rubs. No ectopy. Health Maintenance List Depression Screening Never done Anxiety Screening Never done HIV Screening Never done Colorectal Cancer Screening Never done Covid-19 Vaccine(2023- season) Never done Hepatitis B Vaccine(2 of 3 - 19+ 3-dose series) due on 03/31/2024 Diabetes Screening due on 07/24/2026 Lipid Screening due on 07/24/2028 DTaP,Tdap,Td Vaccine(2 - Td or Tdap) due on 03/03/2034 Influenza Vaccine Completed Hepatitis C Screening Completed ASSESSMENT/PLAN: 1. Acute cough - ICD9: 786.2, ICD10: R05.1 (primary diagnosis) - XR CHEST 2V FRONTAL/LAT 2.Medication management - ICD9: V58.69, ICD10: Z79.899 - THYROID STIMULATING HORMONE - COMPLETE BLOOD COUNT AND DIFFERENTIAL 3. Vitamin D deficiency - ICD9: 268.9, ICD10: E55.9 - VITAMIN D 25 HYDROXY Niraj Andino APRN.[facility]11-14-2024 History of Present illness Narrative* Niraj Andino APRN.UTILITY ENGINEER - 04/02/2024 2:52 PM EST Chief Complaint Patient presents with: Cough: X1 week HPI Arvind Domínguez is a 48 year old male who presents here today for Above Complaints.. Patient presents for cough, fatigue, and congestion x1 week. Patient's sister reports he is fatigued all the time. Was taken off lexapro to see if that was causing fatigue but there has been minimal improvement. Patient has been agitated more as well. Past medical history, appointments, medications, allergies reviewed. Previous Medical History PAST MEDICAL HISTORY Diagnosis Date Autism GERD (gastroesophageal reflux disease) Mental disability Schizophrenia (HCC) Underweight due to inadequate caloric intake Vitamin D deficiency Previous Surgical History No past surgical history on file. Family History No family history on file. Patient Allergies ALLERGIES No Known Allergies Current Medications Current Outpatient Medications on File Prior to Visit Medication Sig escitalopram oxalate (LEXAPRO) 5 mg/5 mL solution Take 5 mg by mouth daily at bedtime. (Patient nottaking: Reported on 04/02/2024) ferrous sulfate 220 mg/5 mL elix Take 7.4 mL by mouth once daily. calcium carbonate (CALCIUM ANTACID) 500 mg chew Take 2 tablets by mouth once daily. cyanocobalamin (VITAMIN B-12) 1,000 mcg tab Take 1 tablet by mouth once daily. Takes as a gummie selenium 50 mcg tab Take 1 tablet by mouth once daily. Takes as a gummie Zinc Sulfate 25 mg zinc (110 mg) tab Take 25 tablets by mouth once daily. Takes as a gummie omega-3 DHA-EPA (FISH OIL) 1,200 (144-216) mg capsule Take 1 capsule by mouth daily with breakfast. ascorbic acid, vitamin C, (VITAMIN C) 500 mg tablet Take 1 tablet by mouth once daily. ergocalciferol 50,000 unit capsule (VITAMIN D2, DRISDOL) Take 1 capsule by mouth one time a week. diphenhydrAMINE (BENADRYL) 25 mg capsule Take 1-2 capsules by mouth at bedtime as needed. food supplemt, lactose-reduced (BOOST MEN) 0.08 gram- 0.9 kcal/mL liqd Take 1 Bottle by mouth two times a day before meals. mirtazapine (REMERON) 15 mg tablet Take 15 mg by mouth daily at bedtime. melatonin 10 mg chew Take 1 Each by mouth once daily. pantoprazole DR (PROTONIX) 40 mg tablet Take 1 tablet by mouth once daily. (capsule) fluticasone (FLONASE) 50 mcg/actuation nasal spray Use 1 Casanova in each nostril once daily. loratadine 10 mg dissolvable tablet Take 10 mg by mouth once daily. OLANZapine orally disintegrating (ZYPREXA ZYDIS) 5 mg disintegrating tablet Take 5 mg by mouth daily at bedtime. Nutritional Supplements (ENSURE PUDDING) pudg Take 113 g by mouth twice daily. No current facility-administered medications on file prior to visit. Social History Social History Tobacco Use Smoking status: Never Smokeless tobacco: Never Substance Use Topics Alcohol use: Never Drug use: Never Review of Symptoms REVIEW OF SYSTEMS SEE HPI EXAM: BP 137/87 Pulse 99 Wt 73.5 kg (162 lb) SpO2 97% BMI 23.24 kg/m General Appearance: Well appearing, alert, in no acute distress, well-hydrated, well nourished.. Ears: External ears normal, canals clear. Nose/Sinuses: Nares normal, septum midline, mucosa normal, no drainage or sinus tenderness. Oropharynx: Lips, mucosa, and tongue normal, teeth and gums normal, oropharynx normal. Neck: Supple, no adenopathy; thyroid symmetric, normal size, no bruits. Lungs: Lungs clear to auscultation. No wheezing, rhonchi, rales.. Heart: RRR without murmur, gallop, or rubs. No ectopy. Health Maintenance List Depression Screening Never done Anxiety Screening Never done HIV Screening Never done Colorectal Cancer Screening Never done Covid-19 Vaccine(2023- season) Never done Hepatitis B Vaccine(2 of 3 - 19+ 3-dose series) due on 03/31/2024 Diabetes Screening due on 07/24/2026 Lipid Screening due on 07/24/2028 DTaP,Tdap,Td Vaccine(2 - Td or Tdap) due on 03/03/2034 Influenza Vaccine Completed Hepatitis C Screening Completed ASSESSMENT/PLAN: 1. Acute cough - ICD9: 786.2, ICD10: R05.1 (primary diagnosis) - XR CHEST 2V FRONTAL/LAT 2.Medication management - ICD9: V58.69, ICD10: Z79.899 - THYROID STIMULATING HORMONE - COMPLETE BLOOD COUNT AND DIFFERENTIAL 3. Vitamin D deficiency - ICD9: 268.9, ICD10: E55.9 - VITAMIN D 25 HYDROXY Niraj Andino APRN.UTILITY ENGINEER documented in this encounterA[facility]11-[facility]-2024 NoteHNO ID: [id number] Author: CHELITA SMART MA Service: ? Author Type: Nuclear Equipment Research Engineer Type: Progress Notes Filed: 03/24/2024 15:48 Note Text: POPULATION HEALTH NAVIGATION OUTREACH Action/FYI LVM [employer]ARNanjing [employer] MESSAGE SENT ANNUAL MEDICARE WELLNESS COLONOSCOPY Reason for Outreach Care Gap/HCC or Scheduling Wellness Visits Care Gaps due: Medicare Annual Wellness Visit Colorectal Cancer Screening Patient Contacted: Unable or unnecessary to reach patient: Left message mDialog message sent Navigation Signature: Chelita Smart MA March 24, 2024 11:46 [facility]11-05-2024 History of Present illness Narrative* Chelita Smart MA - 03/24/2024 11:46 AM EST POPULATION HEALTH NAVIGATION OUTREACH Action/YAMILI LVLeann [employer] MESSAGE SENT ANNUAL MEDICARE WELLNESS COLONOSCOPY Reason for Outreach Care Gap/HCC or Scheduling Wellness Visits Care Gaps due: Medicare Annual Wellness Visit Colorectal Cancer Screening Patient Contacted: Unable or unnecessary to reach patient: Left message mDialog message sent Navigation Signature: Chelita Smart MA March 24, 2024 11:46 AM documented in this encounterAultman [facility]11-[facility]-2024 NotePatient Outreach (NETNAV) ARVIND DOMÍNGUEZ ([id number]) 1975 M GRD Date Time Provider Department 03/24/24 CHELITA SMART During your visit today, we recorded the following information about you: Chelita Smart MA 03/24/2024 3:48 PM Signed POPULATION HEALTH NAVIGATION OUTREACH Action/FYI LVM [employer] MESSAGE SENT ANNUAL MEDICARE WELLNESS COLONOSCOPY Reason for Outreach Care Gap/HCC or Scheduling Wellness Visits Care Gaps due: Medicare Annual Wellness Visit Colorectal Cancer Screening Patient Contacted: Unable or unnecessary to reach patient: Left message Predilyticshart message sent Navigation Signature: Chelita Smart MA March 24, 2024 11:46 AM Allergies As of Date: 03/24/2024 (No Known Allergies) Date Reviewed: 03/13/2024 Reviewed by: Holley Bashir MA - Fully Assessed Reason for Visit: Population Health Navigation Outreach [[id number]] Cmt: [facility] PCSA Prescriptions as of 03/24/2024 - escitalopram oxalate (LEXAPRO) 5 mg/5 mL solution Take 5 mg by mouth daily at bedtime. - ferrous sulfate 220 mg/5 mL elix Take 7.4 mL by mouth once daily. - calcium carbonate (CALCIUM ANTACID) 500 mg chew Take 2 tablets by mouth once daily. - cyanocobalamin (VITAMIN B-12) 1,000 mcg tab Take 1 tablet by mouth once daily. Takes as a gummie - selenium 50 mcg tab Take 1 tablet by mouth once daily. Takes as a gummie - Zinc Sulfate 25 mg zinc (110 mg) tab Take 25 tablets by mouth once daily. Takes as a gummie - omega-3 DHA-EPA (FISH OIL) 1,200 (144-216) mg capsule Take 1 capsule by mouth daily with breakfast. - ascorbic acid, vitamin C, (VITAMIN C) 500 mg tablet Take 1 tablet by mouth once daily. - ergocalciferol 50,000 unit capsule (VITAMIN D2, DRISDOL) Take 1 capsule by mouth one time a week. - diphenhydrAMINE (BENADRYL) 25 mg capsule Take 1-2 capsules by mouth at bedtime as needed. - food supplemt, lactose-reduced (BOOST MEN) 0.08 gram- 0.9 kcal/mL liqd Take 1 Bottle by mouth two times a day before meals. - mirtazapine (REMERON) 15 mg tablet Take 15 mg by mouth daily at bedtime. - melatonin 10 mg chew Take 1 Each by mouth once daily. - pantoprazole DR (PROTONIX) 40 mg tablet Take 1 tablet by mouth once daily. (capsule) - fluticasone (FLONASE) 50 mcg/actuation nasal spray Use 1 Casanova in each nostril once daily. - loratadine 10 mg dissolvable tablet Take 10 mg by mouth once daily. - OLANZapine orally disintegrating (ZYPREXA ZYDIS) 5 mg disintegrating tablet Take 5 mg by mouth daily at bedtime. - Nutritional Supplements (ENSURE PUDDING) pudg Take 113 g by mouth twice daily. Problem List As Of Date: 03/24/2024 (None) Encounter Status:Closed by CHELITA SMART on 03/24/24[facility]10-29-2024 Telephone encounter Note* Telephone Encounter - Niraj Andino APRN.CNP - 03/17/2024 12:16 PM EDT Noted. [facility]10-29-2024 Miscellaneous Notes* Telephone Encounter - Niraj Andino APRN.CNP - 03/17/2024 12:16 PM EDT Noted. * Telephone Encounter - Michelle Tijerina RN - 03/17/2024 9:41 AM EDT Patient's sister Chiki calls and wanted provider to know that [facility] off of Lexapro. They are trying to see if that is what is making patient tired and not wanting to do things. If patient continues to be tired after 2 weeks they are looking to take patient off of another medication. Michelle Tijerina RN documented in this encounterAult[facility] Hospital10-29-2024 Telephone encounter Note * Telephone Encounter - Michelle Tijerina RN - 03/17/2024 9:41 AM EDT Patient's sister Chiki calls and wanted provider to know that patient's psychiatrist at [facility] had taken patient off of Lexapro. They are trying to see if that is what is making patient tired and not wanting to do things. If patient continues to be tired after 2 weeks they are looking to take patient off of another medication. Michelle Tijerina RN [facility]10-28-2024 Telephone encounter Note* Telephone Encounter - Candace Rascon LPN - 03/16/2024 1:53 PM EDT Patient scheduled for nurse visit 03/31/24 to receive Hepatitis B vaccine. Please place order at this time. Candace Rascon LPN [facility]10-28-2024 Miscellaneous Notes* Telephone Encounter - Candace Rascon LPN - 03/16/2024 1:53 PM EDT Patient scheduled for nurse visit 03/31/24 to receive Hepatitis B vaccine. Please place order at this time. Candace Rascon LPN documented in this encounterA[facility]man [facility]10-25-2024 NoteHNO ID: [id number] Author: NIRAJ ANDINO APRN.UTILITY ENGINEER Service: ? Author Type: Nurse Practitioner Type: Progress Notes Filed: 03/13/2024 15:05 Note Text: Chief Complaint Patient presents with: Diarrhea: X 3 days Fatigue: X several months HPI Arvind Domínguez is a 48 year old male who presents here today for Above Complaints.. Patient presents for multiple complaints. Patient's sister reports patient has had decreased appetite, increased sleeping, pulling on ears and runny nose. Patient continues to alternate between diarrhea and constipation, seeing GI in March. Past medical history, appointments, medications, allergies reviewed. Previous Medical History PAST MEDICAL HISTORY Diagnosis Date Autism GERD (gastroesophageal reflux disease) Mental disability Schizophrenia (HCC) Underweight due to inadequate caloric intake Vitamin D deficiency Previous Surgical History No past surgical history on file. Family History No family history on file. Patient Allergies ALLERGIES No Known Allergies Current Medications Current Outpatient Medications on File Prior to Visit Medication Sig escitalopram oxalate (LEXAPRO) 5 mg/5 mL solution Take 5 mg by mouth daily at bedtime. ferrous sulfate 220 mg/5 mL elix Take 7.4 mL by mouth once daily. calcium carbonate (CALCIUM ANTACID) 500 mg chew Take 2 tablets by mouth once daily. cyanocobalamin (VITAMIN B-12) 1,000 mcg tab Take 1 tablet by mouth once daily. Takes as a gummie selenium 50 mcg tab Take 1 tablet by mouth once daily. Takes as a gummie Zinc Sulfate 25 mg zinc (110 mg) tab Take 25 tablets by mouth once daily. Takes as a gummie omega-3 DHA-EPA (FISH OIL) 1,200 (144-216) mg capsule Take 1 capsule by mouth daily with breakfast. ascorbic acid, vitamin C, (VITAMIN C) 500 mg tablet Take 1 tablet by mouth once daily. ergocalciferol 50,000 unit capsule (VITAMIN D2, DRISDOL) Take 1 capsule by mouth one time a week. diphenhydrAMINE (BENADRYL) 25 mg capsule Take 1-2 capsules by mouth at bedtime as needed. food supplemt, lactose-reduced (BOOST MEN) 0.08 gram- 0.9 kcal/mL liqd Take 1 Bottle by mouth two times a day before meals. mirtazapine (REMERON) 15 mg tablet Take 15 mg by mouth daily at bedtime. melatonin 10 mg chew Take 1 Each by mouth once daily. pantoprazole DR (PROTONIX) 40 mg tablet Take 1 tablet by mouth once daily. (capsule) fluticasone (FLONASE) 50 mcg/actuation nasal spray Use 1 Casanova in each nostril once daily. loratadine 10 mg dissolvable tablet Take 10 mg by mouth once daily. OLANZapine orally disintegrating (ZYPREXA ZYDIS) 5 mg disintegrating tablet Take 5 mg by mouth daily at bedtime. Nutritional Supplements (ENSURE PUDDING) pudg Take 113 g by mouth twice daily. No current facility-administered medications on file prior to visit. Social History Social History Tobacco Use Smoking status: Never Smokeless tobacco: Never Substance Use Topics Alcohol use: Never Drug use: Never Review of Symptoms REVIEW OF SYSTEMS SEE HPI EXAM: BP 122/77 Pulse 88 Temp 36.9 ?C (98.5 ?F) Resp 14 Wt 73.9 kg (163 lb) BMI 23.39 kg/m? General Appearance: Well appearing, alert, in no acute distress, well-hydrated, well nourished.. Ears: Positive findings: R TM: normal, L TM: normal, cerumen on left, amount Large. Nose/Sinuses: Positive findings: clear rhinorrhea. Oropharynx: Lips, mucosa, and tongue normal, teeth and gums normal, oropharynx normal. Neck: Supple, no adenopathy; thyroid symmetric, normal size, no bruits. Health Maintenance List Depression Screening Never done Anxiety Screening Never done HIV Screening Never done Colorectal Cancer Screening Never done Covid-19 Vaccine( - 2023- season) Never done Hepatitis B Vaccine(2 of 3 - 19+ 3-dose series) due on 03/31/2024 Diabetes Screening due on 07/24/2026 Lipid Screening due on 07/24/2028 DTaP,Tdap,Td Vaccine(2 - Td or Tdap) due on 03/03/2034 Influenza Vaccine Completed Hepatitis C Screening Completed ASSESSMENT/PLAN: 1. Acute otitis externa of left ear, unspecified type - ICD9: 380.10, ICD10: H60.502 (primary diagnosis) - CIPROFLOXACIN 0.3 %-DEXAMETHASONE 0.1 % EAR DROPS,SUSPENSION 2. Impacted cerumen of left ear - ICD9: 380.4, ICD10: H61.22 -Large amount of dark impacted cerumen to left ear removed with warm tap water. Cerumen loosened but unable to flush due to size. Curette used to dislodge cerumen in two large pieces, patient tolerated well. TM visualized without redness. Ear canal very red and inflamed. 3. Impaired development of adult - ICD9: 783.40, ICD10: R68.89 -Guardianship papers completed for guardianship re-evaluation with the court. Niraj Andino APRN.[facility]10-25-2024 History of Present illness Narrative* Niraj Andino APRN.JOSHUA - 03/13/2024 2:30 PM EDT Chief Complaint Patient presents with: Diarrhea: X 3 days Fatigue: X several months HPI Arvind Domínguez is a 48 year old male who presents here today for Above Complaints.. Patient presents for multiple complaints. Patient's sister reports patient has had decreased appetite, increased sleeping, pulling on ears and runny nose. Patient continues to alternate between diarrhea and constipation, seeing GI in March. Past medical history, appointments, medications, allergies reviewed. Previous Medical History PAST MEDICAL HISTORY Diagnosis Date Autism GERD (gastroesophageal reflux disease) Mental disability Schizophrenia (HCC) Underweight due to inadequate caloric intake Vitamin D deficiency Previous Surgical History No past surgical history on file. Family History No family history on file. Patient Allergies ALLERGIES No Known Allergies Current Medications Current Outpatient Medications on File Prior to Visit Medication Sig escitalopram oxalate (LEXAPRO) 5 mg/5 mL solution Take 5 mg by mouth daily at bedtime. ferrous sulfate 220 mg/5 mL elix Take 7.4 mL by mouth once daily. calcium carbonate (CALCIUM ANTACID) 500 mg chew Take 2 tablets by mouth once daily. cyanocobalamin (VITAMIN B-12) 1,000 mcg tab Take 1 tablet by mouth once daily. Takes as a gummie selenium 50 mcg tab Take 1 tablet by mouth once daily. Takes as a gummie Zinc Sulfate 25 mg zinc (110 mg) tab Take 25 tablets by mouth once daily. Takes as a gummie omega-3 DHA-EPA (FISH OIL) 1,200 (144-216) mg capsule Take 1 capsule by mouth daily with breakfast. ascorbic acid, vitamin C, (VITAMIN C) 500 mg tablet Take 1 tablet by mouth once daily. ergocalciferol 50,000 unit capsule (VITAMIN D2, DRISDOL) Take 1 capsule by mouth one time a week. diphenhydrAMINE (BENADRYL) 25 mg capsule Take 1-2 capsules by mouth at bedtime as needed. food supplemt, lactose-reduced (BOOST MEN) 0.08 gram- 0.9 kcal/mL liqd Take 1 Bottle by mouth two times a day before meals. mirtazapine (REMERON) 15 mg tablet Take 15 mg by mouth daily at bedtime. melatonin 10 mg chew Take 1 Each by mouth once daily. pantoprazole DR (PROTONIX) 40 mg tablet Take 1 tablet by mouth once daily. (capsule) fluticasone (FLONASE) 50 mcg/actuation nasal spray Use 1 Casanova in each nostril once daily. loratadine 10 mg dissolvable tablet Take 10 mg by mouth once daily. OLANZapine orally disintegrating (ZYPREXA ZYDIS) 5 mg disintegrating tablet Take 5 mg by mouth daily at bedtime. Nutritional Supplements (ENSURE PUDDING) pudg Take 113 g by mouth twice daily. No current facility-administered medications on file prior to visit. Social History Social History Tobacco Use Smoking status: Never Smokeless tobacco: Never Substance Use Topics Alcohol use: Never Drug use: Never Review of Symptoms REVIEW OF SYSTEMS SEE HPI EXAM: BP 122/77 Pulse 88 Temp 36.9 C (98.5 F) Resp 14 Wt 73.9 kg (163 lb) BMI 23.39 kg/m General Appearance: Well appearing, alert, in no acute distress, well-hydrated, well nourished.. Ears: Positive findings: R TM: normal, L TM: normal, cerumen on left, amount Large. Nose/Sinuses: Positive findings: clear rhinorrhea. Oropharynx: Lips, mucosa, and tongue normal, teeth and gums normal, oropharynx normal. Neck: Supple, no adenopathy; thyroid symmetric, normal size, no bruits. Health Maintenance List Depression Screening Never done Anxiety Screening Never done HIV Screening Never done Colorectal Cancer Screening Never done Covid-19 Vaccine(2023- season) Never done Hepatitis B Vaccine(2 of 3 - 19+ 3-dose series) due on 03/31/2024 Diabetes Screening due on 07/24/2026 Lipid Screening due on 07/24/2028 DTaP,Tdap,Td Vaccine(2 - Td or Tdap) due on 03/03/2034 Influenza Vaccine Completed Hepatitis C Screening Completed ASSESSMENT/PLAN: 1. Acute otitis externa of left ear, unspecified type - ICD9: 380.10, ICD10: H60.502 (primary diagnosis) - CIPROFLOXACIN 0.3 %-DEXAMETHASONE 0.1 % EAR DROPS,SUSPENSION 2. Impacted cerumen of left ear - ICD9: 380.4, ICD10: H61.22 -Large amount of dark impacted cerumen to left ear removed with warm tap water. Cerumen loosened but unable to flush due to size. Curette used to dislodge cerumen in two large pieces, patient tolerated well. TM visualized without redness. Ear canal very red and inflamed. 3. Impaired development of adult - ICD9: 783.40, ICD10: R68.89 -Guardianship papers completed for guardianship re-evaluation with the court. Niraj Andino APRN.UTILITY ENGINEER [facility] Telephone encounter Note * Telephone Encounter - Nina Velez RN - 03/13/2024 12:41 PM EDT Pts sister called in and reports Pt was able to get in to see Dr Chong's [employer] [place] on 04/10/24. Shestates the DD board needs verification of the Pts autism, so call into [facility] [place] [facility] to see him. She states the Pt has only we to school one day last week and one day this week.She said isn't sure what's wrong with him, if it's depression. She states his appetite has decreased, he is sleeping more, his nose is watering even with his Claritin, he is sneezing. She reports he has been having bouts of diarrhea and constipation, and denies any change to his medications or diet. She states he has been talking from his head a lot and hold his ear, reports he has been talking to someone that isn't there. She says he has an appointment on 03/16/24 [facility] there. She reports the last time the Pt got like this it was because he was coming down with something, one time he had Strep and another time and ear ache. Pt was scheduled with Niraj Andino [employer]POR[employer] today at 220 pm. [facility]10-25-[facility] Miscellaneous Notes* Telephone Encounter - Nina Velez RN - 03/13/2024 12:41 PM EDT Pts sister called in and reports Pt was able to get in to see Dr Arlette's [employer] [place] on 04/10/24. Shestates the DD board needs verification of the Pts autism, so call into [facility] to see him. She states the Pt has only we to school one day last week and one day this week.She said isn't sure what's wrong with him, if it's depression. She states his appetite has decreased, he is sleeping more, his nose is watering even with his Claritin, he is sneezing. She reports he has been having bouts of diarrhea and constipation, and denies any change to his medications or diet. She states he has been talking from his head a lot and hold his ear, reports he has been talking to someone that isn't there. She says he has an appointment on 03/16/24 with a [facility] as Renny no longer works there. She reports the last time the Pt got like this it was because he was coming down with something, one time he had Strep and another time and ear ache. Pt was scheduled with Niraj Andino NP today at 220 pm. documented in this encounterA[facility]10-15-2024 NoteHNO ID: [id number] Author: CANDACE RASCON LPN Service: ? Author Type: LICENSED NURSE Type: Progress Notes Filed: 03/03/2024 16:14 Note Text: Patient presents for Hep B, TDAP, and Flu vaccines. Denies any problems at this time. Tolerated injections well. [facility] History of Present illness Narrative* Candace Rascon LPN - 03/03/2024 4:09 PM EDT Patient presents for Hep B, TDAP, and Flu vaccines. Denies any problems at this time. Tolerated injections well. Candace Rascon LPN documented in this encounterA[facility]10-10-2024 Telephone encounter Note * Telephone Encounter - Candace Rascon LPN - 02/27/2024 8:21 AM EDT Patient scheduled for nurse visit 03/03/24 to receive TDAP vaccine. Please place order at this time. Candace Rascon LPN [facility]10-10-2024 Miscellaneous Notes* Telephone Encounter - Candace Rascon LPN - 02/27/2024 8:21 AM EDT Patient scheduled for nurse visit 03/03/24 to receive TDAP vaccine. Please place order at this time. Candace Rascon LPN documented in this encounterA[facility] Hospital10-09-2024 Note* Addendum Note - Radha Wall LPN - 02/26/2024 10:01 AM EDTAddended by: RADHA WALL on: 02/26/2024 10:01 AM Modules accepted: Orders [facility]10-09-2024 Miscellaneous Notes* Addendum Note - Radha Wall LPN - 02/26/2024 10:01 AM EDTAddended by: RADHA WALL on: 02/26/2024 10:01 AM Modules accepted: Orders * Telephone Encounter - Radha Wall LPN - 02/26/2024 9:56 AM EDT Chiki Gill returned call and went over notes below, scheduled nurse visit for 03/03 at 345 pm per her request. Pending orders, not sure which D-tap to pend. * Telephone Encounter - Tammi Diane - 02/26/2024 8:[address] left message to schedule nurse visit. * Telephone Encounter - Nina Velez RN - 02/25/2024 8:57 AM EDT Called and left a detailed voicemail notifying patient's guardian Chiki of providers message. Clinic phone number was left in case she had any questions and to get a hold of scheduling to set up Hep B series and Tdap. Nina Velez, RN * Telephone Encounter - Niraj Andino APRN.JOSHUA - 02/24/2024 5:19 PM EDT Please let Chiki know Etienne's titers show immunity to everything except hepatitis B. I would recommendcompleting hepatitis b series as well as updating Dtap since we do not know when his last one was. documented in this encounterA[facility]10-09-2024 Telephone encounter Note * Telephone Encounter - Radha Wall LPN - 02/26/2024 9:56 AM EDT Chiki Gill returned call and went over notes below, scheduled nurse visit for 03/03 at 345 pm per her request. Pending orders, not sure which D-tap to pend. [facility] Telephone encounter Note* Telephone Encounter - Tammi Diane - 02/26/2024 8:[address] attempt left message to schedule nurse visit. [facility]10-08-20[facility] Telephone encounter Note* Telephone Encounter - Nina Velez RN - 02/25/2024 8:57 AM EDT Called and left a detailed voicemail notifying patient's guardian Chiki of providers message. Clinic phone number was left in case she had any questions and to get a hold of scheduling to set up Hep B series and Tdap. Nina Velez RN [facility]10-07-2024 Telephone encounter Note* Telephone Encounter - Niraj Andino APRN.OJSHUA - 02/24/2024 5:19 PM EDT Please let Chiki know Etienne's titers show immunity to everything except hepatitis B. I would recommendcompleting hepatitis b series as well as updating Dtap since we do not know when his last one was. [facility]10-04-2024 Telephone encounter Note* Telephone Encounter - Patricia Chicas RN - 02/21/2024 8:59 AM EDT Sister (Chiki) calls and notified of results and providers instructions. Chiki verbalizes understanding. Chiki asking for liquid amoxicillin to be sent in as patient is not able to swallow pills. Pended for review. Patricia Chicas RN [facility]10-04-2024 Miscellaneous Notes* Telephone Encounter - Patricia Chicas RN - 02/21/2024 8:59 AM EDT Sister (Chiki) calls and notified of results and providers instructions. Chiki verbalizes understanding. Chiki asking for liquid amoxicillin to be sent in as patient is not able to swallow pills. Pended for review. Patricia Chicas RN * Telephone Encounter - Niraj Andino APRN.CNP - 02/21/2024 8:53 AM EDT Please let patient know his covid/flu/rsv is negative. I have sent in antibiotics for strep. documented in this encounterA[facility]10-04-2024 Telephone encounter Note * Telephone Encounter - Niraj Andino APRN.CNP - 02/21/2024 8:53 AM EDT Please let patient know his covid/flu/rsv is negative. I have sent in antibiotics for strep. [facility]10-03-2024 NoteHNO ID: [id number] Author: NIRAJ ANDINO APRN.CNP Service: ? Author Type: Nurse Practitioner Type: Progress Notes Filed: 02/20/2024 15:47 Note Text: Chief Complaint Patient presents with: Sore Throat poor appetite: X 3 days HPI Arvind Domínguez is a 48 year old male who presents here today for Above Complaints.. Patient presents for sore throat, cough, and decreased appetite x3 days. Patient is minimally verbal but has been pointing to his throat a lot when asked what is wrong. Also telling sister tired a lot. Patient is afebrile. Also continues to point to his stomach and tell sister it hurts. Past medical history, appointments, medications, allergies reviewed. Previous Medical History PAST MEDICAL HISTORY Diagnosis Date Autism GERD (gastroesophageal reflux disease) Mental disability Schizophrenia (HCC) Underweight due to inadequate caloric intake Vitamin D deficiency Previous Surgical History No past surgical history on file. Family History No family history on file. Patient Allergies ALLERGIES No Known Allergies Current Medications Current Outpatient Medications on File Prior to Visit Medication Sig escitalopram oxalate (LEXAPRO) 5 mg/5 mL solution Take 5 mg by mouth daily at bedtime. ferrous sulfate 220 mg/5 mL elix Take 7.4 mL by mouth once daily. calcium carbonate (CALCIUM ANTACID) 500 mg chew Take 2 tablets by mouth once daily. cyanocobalamin (VITAMIN B-12) 1,000 mcg tab Take 1 tablet by mouth once daily. Takes as a gummie selenium 50 mcg tab Take 1 tablet by mouth once daily. Takes as a gummie Zinc Sulfate 25 mg zinc (110 mg) tab Take 25 tablets by mouth once daily. Takes as a gummie omega-3 DHA-EPA (FISH OIL) 1,200 (144-216) mg capsule Take 1 capsule by mouth daily with breakfast. ascorbic acid, vitamin C, (VITAMIN C) 500 mg tablet Take 1 tablet by mouth once daily. ergocalciferol 50,000 unit capsule (VITAMIN D2, DRISDOL) Take 1 capsule by mouth one time a week. diphenhydrAMINE (BENADRYL) 25 mg capsule Take 1-2 capsules by mouth at bedtime as needed. food supplemt, lactose-reduced (BOOST MEN) 0.08 gram- 0.9 kcal/mL liqd Take 1 Bottle by mouth two times a day before meals. mirtazapine (REMERON) 15 mg tablet Take 15 mg by mouth daily at bedtime. melatonin 10 mg chew Take 1 Each by mouth once daily. pantoprazole DR (PROTONIX) 40 mg tablet Take 1 tablet by mouth once daily. (capsule) fluticasone (FLONASE) 50 mcg/actuation nasal spray Use 1 Casanova in each nostril once daily. loratadine 10 mg dissolvable tablet Take 10 mg by mouth once daily. OLANZapine orally disintegrating (ZYPREXA ZYDIS) 5 mg disintegrating tablet Take 5 mg by mouth daily at bedtime. Nutritional Supplements (ENSURE PUDDING) pudg Take 113 g by mouth twice daily. No current facility-administered medications on file prior to visit. Social History Social History Tobacco Use Smoking status: Never Smokeless tobacco: Never Substance Use Topics Alcohol use: Never Drug use: Never Review of Symptoms REVIEW OF SYSTEMS SEE HPI EXAM: BP 143/93 Pulse 90 Temp 36.9 ?C (98.5 ?F) Wt 72.6 kg (160 lb) BMI 22.96 kg/m? General Appearance: Well appearing, alert, in no acute distress, well-hydrated, well nourished.. Neck: Positive findings: left>right posterior cervical adenopathy. Lungs: Lungs clear to auscultation. No wheezing, rhonchi, rales.. Heart: RRR without murmur, gallop, or rubs. No ectopy. Unable to complete throat evaluation due to patient's compliance and ability to follow directions. Health Maintenance List Depression Screening Never done Anxiety Screening Never done Hepatitis C Screening Never done HIV Screening Never done DTaP,Tdap,Td Vaccine(1 - Tdap) Never done Hepatitis B Vaccine(1 of 3 - 19+ 3-dose series) Never done Colorectal Cancer Screening Never done Influenza Vaccine(1) due on 01/19/2024 Covid-19 Vaccine( - 2023- season) Never done Diabetes Screening due on 07/24/2026 Lipid Screening due on 07/24/2028 ASSESSMENT/PLAN: 1. Cough in adult - ICD9: 786.2, ICD10: R05.9 (primary diagnosis) - COVID AND INFLUENZA A/B AND RSV PCR, ROUTINE 2. Sore throat - ICD9: 462, ICD10: J02.9 - suspect strep-unable to test patient due to behaviors. - COVID AND INFLUENZA A/B AND RSV PCR, ROUTINE - STREP A MOLECULAR (POC) 3. Decreased appetite - ICD9: 783.0, ICD10: R63.0 - CONSULT TO GASTROENTEROLOGY 4. GERD without esophagitis - ICD9: 530.81, ICD10: K21.9 - CONSULT TO GASTROENTEROLOGY 5. Measles, mumps, rubella (MMR) vaccination status unknown - ICD9: V49.89, ICD10: Z78.9 - RUBELLA TITER, IGG B/O - RUBEOLA (MEASLES)IGG - MUMPS IGG AB 6. Hepatitis vaccination status unknown - ICD9: V49.89, ICD10: Z78.9 - HEP ACUTE PANEL BL 7. Unknown varicella vaccination status - ICD9: V49.89, ICD10: Z78.9 - VARICELLA ZOSTER IGG 8. Eghelajtrq-uzdvyjzrz-nlijjyk (DPT) vaccination status unknown - ICD9: V49.89, ICD10: Z78.9 (more content not included)...[facility]10-03-2024 History of Present illness Narrative* Niraj Andino APRN.UTILITY ENGINEER - 02/20/2024 3:27 PM EDT Chief Complaint Patient presents with: Sore Throat poor appetite: X 3 days HPI Arvind Domínguez is a 48 year old male who presents here today for Above Complaints.. Patient presents for sore throat, cough, and decreased appetite x3 days. Patient is minimally verbal but has been pointing to his throat a lot when asked what is wrong. Also telling sister tired a lot. Patient is afebrile. Also continues to point to his stomach and tell sister it hurts. Past medical history, appointments, medications, allergies reviewed. Previous Medical History PAST MEDICAL HISTORY Diagnosis Date Autism GERD (gastroesophageal reflux disease) Mental disability Schizophrenia (HCC) Underweight due to inadequate caloric intake Vitamin D deficiency Previous Surgical History No past surgical history on file. Family History No family history on file. Patient Allergies ALLERGIES No Known Allergies Current Medications Current Outpatient Medications on File Prior to Visit Medication Sig escitalopram oxalate (LEXAPRO) 5 mg/5 mL solution Take 5 mg by mouth daily at bedtime. ferrous sulfate 220 mg/5 mL elix Take 7.4 mL by mouth once daily. calcium carbonate (CALCIUM ANTACID) 500 mg chew Take 2 tablets by mouth once daily. cyanocobalamin (VITAMIN B-12) 1,000 mcg tab Take 1 tablet by mouth once daily. Takes as a gummie selenium 50 mcg tab Take 1 tablet by mouth once daily. Takes as a gummie Zinc Sulfate 25 mg zinc (110 mg) tab Take 25 tablets by mouth once daily. Takes as a gummie omega-3 DHA-EPA (FISH OIL) 1,200 (144-216) mg capsule Take 1 capsule by mouth daily with breakfast. ascorbic acid, vitamin C, (VITAMIN C) 500 mg tablet Take 1 tablet by mouth once daily. ergocalciferol 50,000 unit capsule (VITAMIN D2, DRISDOL) Take 1 capsule by mouth one time a week. diphenhydrAMINE (BENADRYL) 25 mg capsule Take 1-2 capsules by mouth at bedtime as needed. food supplemt, lactose-reduced (BOOST MEN) 0.08 gram- 0.9 kcal/mL liqd Take 1 Bottle by mouth two times a day before meals. mirtazapine (REMERON) 15 mg tablet Take 15 mg by mouth daily at bedtime. melatonin 10 mg chew Take 1 Each by mouth once daily. pantoprazole DR (PROTONIX) 40 mg tablet Take 1 tablet by mouth once daily. (capsule) fluticasone (FLONASE) 50 mcg/actuation nasal spray Use 1 Casanova in each nostril once daily. loratadine 10 mg dissolvable tablet Take 10 mg by mouth once daily. OLANZapine orally disintegrating (ZYPREXA ZYDIS) 5 mg disintegrating tablet Take 5 mg by mouth daily at bedtime. Nutritional Supplements (ENSURE PUDDING) pudg Take 113 g by mouth twice daily. No current facility-administered medications on file prior to visit. Social History Social History Tobacco Use Smoking status: Never Smokeless tobacco: Never Substance Use Topics Alcohol use: Never Drug use: Never Review of Symptoms REVIEW OF SYSTEMS SEE HPI EXAM: BP 143/93 Pulse 90 Temp 36.9 C (98.5 F) Wt 72.6 kg (160 lb) BMI 22.96 kg/m General Appearance: Well appearing, alert, in no acute distress, well-hydrated, well nourished.. Neck: Positive findings: left>right posterior cervical adenopathy. Lungs: Lungs clear to auscultation. No wheezing, rhonchi, rales.. Heart: RRR without murmur, gallop, or rubs. No ectopy. Unable to complete throat evaluation due to patient's compliance and ability to follow directions. Health Maintenance List Depression Screening Never done Anxiety Screening Never done Hepatitis C Screening Never done HIV Screening Never done DTaP,Tdap,Td Vaccine(1 - Tdap) Never done Hepatitis B Vaccine(1 of 3 - 19+ 3-dose series) Never done Colorectal Cancer Screening Never done Influenza Vaccine(1) due on 01/19/2024 Covid-19 Vaccine(2023- season) Never done Diabetes Screening due on 07/24/2026 Lipid Screening due on 07/24/2028 ASSESSMENT/PLAN: 1. Cough in adult - ICD9: 786.2, ICD10: R05.9 (primary diagnosis) - COVID & INFLUENZA A/B & RSV PCR, ROUTINE 2. Sore throat - ICD9: 462, ICD10: J02.9 - suspect strep-unable to test patient due to behaviors. - COVID & INFLUENZA A/B & RSV PCR, ROUTINE - STREP A MOLECULAR (POC) 3. Decreased appetite - ICD9: 783.0, ICD10: R63.0 - CONSULT TO GASTROENTEROLOGY 4. GERD without esophagitis - ICD9: 530.81, ICD10: K21.9 - CONSULT TO GASTROENTEROLOGY 5. Measles, mumps, rubella (MMR) vaccination status unknown - ICD9: V49.89, ICD10: Z78.9 - RUBELLA TITER, IGG B/O - RUBEOLA (MEASLES)IGG - MUMPS IGG AB 6. Hepatitis vaccination status unknown - ICD9: V49.89, ICD10: Z78.9 - HEP ACUTE PANEL BL 7. Unknown varicella vaccination status - ICD9: V49.89, ICD10: Z78.9 - VARICELLA ZOSTER IGG 8. Tdloroinun-qlpqxlqtr-ibarivu (DPT) vaccination status unknown - ICD9: V49.89, ICD10: Z78.9 - TETANUS ANTIBODY IGG - DIPHTHERIA IGG ABS Niraj Andino APRN.CNP [facility] Telephone encounter Note * Telephone Encounter - Holley Bashir MA - 12/24/2023 8:56 AM EDT Chiki notified and verbalized understanding Holley Bashir MA [facility]08-06-2024 Miscellaneous Notes* Telephone Encounter - Holley Bashir MA - 12/24/2023 8:56 AM EDT Chiki notified and verbalized understanding Holley Bashir MA * Telephone Encounter - Niraj Andino APRN.CNP - 12/24/2023 8:08 AM EDT Please let Chiki know his xray does not show any abnormalities of the skull. documented in this encounterA[facility]24 Telephone encounter Note * Telephone Encounter - Niraj Andino APRN.CNP - 12/24/2023 8:08 AM EDT Please let Chiki know his xray does not show any abnormalities of the skull. [facility]08-05-[facility] NoteIMPRESSION: Limited evaluation due to radiography and superimposed structures/artifacts. Indeterminant increased density overlying the right maxillary sinus. No acute displaced fracture or destructive osseous lesion is visualized given exam limitations, however CT is suggested for further evaluation. Cervical spine degenerative changes. Process Control Supervisor: PSCB Transcribe Date/Time: Dec 23 2023 7:04P Dictated by : JASON FONSECA MD This examination was interpreted and the report reviewed and electronically signed by: JASON FONSECA MD on Dec 23 2023 7:05PM [facility] [id number] History of Present illness Narrative* Kilo Chand RT(R) - 12/19/2023 3:40 PM EDT Radiology Service Progress Note PATIENT NAME: Arvind Domínguez DATE OF SERVICE: December 19, 2023 TIME: 3:45 PM PATIENT IDENTITY VERIFICATION COMPLETED USING TWO (2) IDENTIFIERS: Name and Date of obtained from a relative, guardian or prior caregiver.. FALL SCREENING: Has the patient had 2 falls in the last year or 1 fall with injury or currently using an Ambulatory Assistive Device (Walker, Cane, Wheelchair, Crutches, etc.)? No PATIENT GENDER DATA: Male PATIENT RELEVANT IMPLANT DATA REVIEWED: Yes PATIENT PRESENTS WITH AN IMPLANTABLE OR ATTACHED PILEDRIVER CARPENTER: No RADIOLOGY DEPARTMENT: General X-ray: Exam(s) Completed: Skull X-Ray PERIPHERAL IV DATA: Not applicable SIGNED BY: RT Hu(R) December 19, 2023 3:45 PM documented in this encounterAultman Hospital08-01-2024 Note* Addendum Note - Niraj Andino APRN.CNP - 12/19/2023 3:28 PM EDTAddended by: NIRAJ ANDINO on: 12/19/2023 03:28 PM Modules accepted: Orders [facility]08-01[facility] Miscellaneous Notes* Addendum Note - Niraj Andino APRN.CNP - 12/19/2023 3:28 PM EDTAddended by: NIRAJ ANDINO on: 12/19/2023 03:28 PM Modules accepted: Orders documented in this encounterA[facility]08-01-2024 History of Present illness Narrative* Niraj Andino APRN.CNP - 12/19/2023 3:06 PM EDT Chief Complaint Patient presents with: ER F/U HPI Arvind Domínguez is a 48 year old male who presents here today for Above Complaints.. Patient presents for ER follow up. Was see for concern of chest/abdominal pain but workup was negative. Sister believes rubbing his chest/abdomen may be a stim or a way to signal her to go away. Sister reports patient has been scratching more as well to extremities as well as buttock. Past medical history, appointments, medications, allergies reviewed. Previous Medical History PAST MEDICAL HISTORY No date: Autism No date: GERD (gastroesophageal reflux disease) No date: Mental disability No date: Schizophrenia (HCC) No date: Underweight due to inadequate caloric intake No date: Vitamin D deficiency Previous Surgical History No past surgical history on file. Family History No family history on file. Patient Allergies ALLERGIES No Known Allergies Current Medications Current Outpatient Medications on File Prior to Visit Medication Sig escitalopram oxalate (LEXAPRO) 5 mg/5 mL solution Take 5 mg by mouth daily at bedtime. ferrous sulfate 220 mg/5 mL elix Take 7.4 mL by mouth once daily. calcium carbonate (CALCIUM ANTACID) 500 mg chew Take 2 tablets by mouth once daily. cyanocobalamin (VITAMIN B-12) 1,000 mcg tab Take 1 tablet by mouth once daily. Takes as a gummie selenium 50 mcg tab Take 1 tablet by mouth once daily. Takes as a gummie Zinc Sulfate 25 mg zinc (110 mg) tab Take 25 tablets by mouth once daily. Takes as a gummie omega-3 DHA-EPA (FISH OIL) 1,200 (144-216) mg capsule Take 1 capsule by mouth daily with breakfast. ascorbic acid, vitamin C, (VITAMIN C) 500 mg tablet Take 1 tablet by mouth once daily. ergocalciferol 50,000 unit capsule (VITAMIN D2, DRISDOL) Take 1 capsule by mouth one time a week. diphenhydrAMINE (BENADRYL) 25 mg capsule Take 1-2 capsules by mouth at bedtime as needed. food supplemt, lactose-reduced (BOOST MEN) 0.08 gram- 0.9 kcal/mL liqd Take 1 Bottle by mouth two times a day before meals. mirtazapine (REMERON) 15 mg tablet Take 15 mg by mouth daily at bedtime. melatonin 10 mg chew Take 1 Each by mouth once daily. pantoprazole DR (PROTONIX) 40 mg tablet Take 1 tablet by mouth once daily. (capsule) fluticasone (FLONASE) 50 mcg/actuation nasal spray Use 1 Casanova in each nostril once daily. loratadine 10 mg dissolvable tablet Take 10 mg by mouth once daily. OLANZapine orally disintegrating (ZYPREXA ZYDIS) 5 mg disintegrating tablet Take 5 mg by mouth daily at bedtime. Nutritional Supplements (ENSURE PUDDING) pudg Take 113 g by mouth twice daily. No current facility-administered medications on file prior to visit. Social History Social History Tobacco Use Smoking status: Never Smokeless tobacco: Never Substance Use Topics Alcohol use: Never Drug use: Never Review of Symptoms REVIEW OF SYSTEMS SEE HPI EXAM: BP 119/79 Pulse 72 Resp 14 Wt 68.9 kg (152 lb) BMI 21.81 kg/m General Appearance: Well appearing, alert, in no acute distress, well-hydrated, well nourished.. Skin: multiple scratches to arms and face. No redness, warmth or drainage noted. . Lungs: Lungs clear to auscultation. No wheezing, rhonchi, rales.. Heart: RRR without murmur, gallop, or rubs. No ectopy. Abdomen: Normal abdominal exam, Abdomen soft, non-tender. Bowel sounds normal. No masses, organomegaly. Health Maintenance List Depression Screening Never done Anxiety Screening Never done Hepatitis C Screening Never done HIV Screening Never done DTaP,Tdap,Td Vaccine(1 - Tdap) Never done Hepatitis B Vaccine(1 of 3 - 19+ 3-dose series) Never done Colorectal Cancer Screening Never done Covid-19 Vaccine(1 - season) Never done Influenza Vaccine(1) due on 01/19/2024 Diabetes Screening due on 07/24/2026 Lipid Screening due on 07/24/2028 ASSESSMENT/PLAN: 1. Agitation - ICD9: 307.9, ICD10: R45.1 (primary diagnosis) -Speak with psych regarding medications and increased behaviors 2. Anal inflammation - ICD9: 569.49, ICD10: K62.89 -Use witch jacques wipes after BM and monitor for improvement. 3. Schizophrenia, unspecified type (HCC) - ICD9: 295.90, ICD10: F20.9 -Speak with psych regarding medications and increased behaviors 4. 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 Niraj Andino APRN.UTILITY ENGINEER documented in this encounterA[facility]07-29-[facility]24 Telephone encounter Note * Telephone Encounter - Tram Barajas RN - 12/16/2023 8:25 AM EDT Opened in error-see other phone note of 12/12 [facility] Miscellaneous Notes* Telephone Encounter - Trma Barajas RN - 12/16/2023 8:25 AM EDT Opened in error-see other phone note of 12/12 documented in this encounterA[facility]07-26-2024 Telephone encounter Note * Telephone Encounter - Tram Barajas RN - 12/13/2023 3:52 PM EDT Pt's sister Chiki calling in with concerns about Arvind. She states she is noticing that he is rubbing his stomach and chest area today. She states he is non verbal. When she asks where it hurts, he rubs his chest. She isn't sure if he is having heartburn or abd pain or chest pain. She states his BP seems fine at 112/72 but she has gotten different pulse rates. One was 86 and one was 119. She isn'tsure what to do. No appts left today and with possible irregular heart rate and possible chest pain, instructed that she should take him to the ER as unable to evaluate and assess pt as he is non verbal. Chiki verbalizes understanding. [facility] Miscellaneous Notes* Telephone Encounter - Tram Barajas RN - 12/13/2023 3:52 PM EDT Pt's sister Chiki calling in with concerns about Arvind. She states she is noticing that he is rubbing his stomach and chest area today. She states he is non verbal. When she asks where it hurts, he rubs his chest. She isn't sure if he is having heartburn or abd pain or chest pain. She states his BP seems fine at 112/72 but she has gotten different pulse rates. One was 86 and one was 119. She isn'tsure what to do. No appts left today and with possible irregular heart rate and possible chest pain, instructed that she should take him to the ER as unable to evaluate and assess pt as he is non verbal. Chiki verbalizes understanding. documented in this encounterA[facility]07-12-2024 Miscellaneous Notes* Telephone Encounter - Holley Bashir MA - 11/29/2023 11:46 AM EDT Chiki notified and verbalized understanding Holley Bashir MA * Telephone Encounter - Niraj Andino APRN.CNP - 11/29/2023 11:39 AM EDT Please let chiki know I have sent in liquid and apologize for the delay. * Telephone Encounter - Michelle Tijerina RN - 11/29/2023 8:32 AM EDT Patient sister calls and states that patient was prescribed amoxicillin yesterday for ear infection. Chiki reports that this was sent in pill form and patient cannot take pills. Chiki asking if this can be changed to liquid form? Please review and advise, Michelle Tijerina RN documented in this encounterA[facility]07-12-2024 Telephone encounter Note * Telephone Encounter - Holley Bashir MA - 11/29/2023 11:46 AM EDT Chiki notified and verbalized understanding Holley Bashir MA [facility]07-[facility] Telephone encounter Note* Telephone Encounter - Niraj Andino APRN.CNP - 11/29/2023 11:39 AM EDT Please let chiki know I have sent in liquid and apologize for the delay. [facility] Tele[facility] encounter Note* Telephone Encounter - Michelle Tijerina RN - 11/29/2023 8:32 AM EDT Patient sister calls and states that patient was prescribed amoxicillin yesterday for ear infection. Chiki reports that this was sent in pill form and patient cannot take pills. Chiki asking if this can be changed to liquid form? Please review and advise, Michelle Tijerina RN [facility] History of Present illness Narrative* Niraj Andino APRN.UTILITY ENGINEER - 11/28/2023 4:28 PM EDT Chief Complaint Patient presents with: Follow Up: Lump behind right ear HPI Arvind Domínguez is a 48 year old male who presents here today for Above Complaints.. Patient presents for lump behind right ear x2 weeks. Patient's sister reports he has been grabbing ear more and talking when ear is being grabbed. Past medical history, appointments, medications, allergies reviewed. Previous Medical History PAST MEDICAL HISTORY Diagnosis Date Autism GERD (gastroesophageal reflux disease) Mental disability Schizophrenia (HCC) Underweight due to inadequate caloric intake Vitamin D deficiency Previous Surgical History No past surgical history on file. Family History No family history on file. Patient Allergies ALLERGIES No Known Allergies Current Medications Current Outpatient Medications on File Prior to Visit Medication Sig escitalopram oxalate (LEXAPRO) 5 mg/5 mL solution Take 5 mg by mouth daily at bedtime. ferrous sulfate 220 mg/5 mL elix Take 7.4 mL by mouth once daily. calcium carbonate (CALCIUM ANTACID) 500 mg chew Take 2 tablets by mouth once daily. cyanocobalamin (VITAMIN B-12) 1,000 mcg tab Take 1 tablet by mouth once daily. Takes as a gummie selenium 50 mcg tab Take 1 tablet by mouth once daily. Takes as a gummie Zinc Sulfate 25 mg zinc (110 mg) tab Take 25 tablets by mouth once daily. Takes as a gummie omega-3 DHA-EPA (FISH OIL) 1,200 (144-216) mg capsule Take 1 capsule by mouth daily with breakfast. ascorbic acid, vitamin C, (VITAMIN C) 500 mg tablet Take 1 tablet by mouth once daily. ergocalciferol 50,000 unit capsule (VITAMIN D2, DRISDOL) Take 1 capsule by mouth one time a week. diphenhydrAMINE (BENADRYL) 25 mg capsule Take 1-2 capsules by mouth at bedtime as needed. food supplemt, lactose-reduced (BOOST MEN) 0.08 gram- 0.9 kcal/mL liqd Take 1 Bottle by mouth two times a day before meals. mirtazapine (REMERON) 15 mg tablet Take 15 mg by mouth daily at bedtime. melatonin 10 mg chew Take 1 Each by mouth once daily. pantoprazole DR (PROTONIX) 40 mg tablet Take 1 tablet by mouth once daily. (capsule) fluticasone (FLONASE) 50 mcg/actuation nasal spray Use 1 Casanova in each nostril once daily. loratadine 10 mg dissolvable tablet Take 10 mg by mouth once daily. OLANZapine orally disintegrating (ZYPREXA ZYDIS) 5 mg disintegrating tablet Take 5 mg by mouth daily at bedtime. Nutritional Supplements (ENSURE PUDDING) pudg Take 113 g by mouth twice daily. No current facility-administered medications on file prior to visit. Social History Social History Tobacco Use Smoking status: Never Smokeless tobacco: Never Substance Use Topics Alcohol use: Never Drug use: Never Review of Symptoms REVIEW OF SYSTEMS SEE HPI EXAM: BP 132/88 Pulse 84 Resp 14 Wt 68.9 kg (152 lb) BMI 21.81 kg/m General Appearance: Well appearing, alert, in no acute distress, well-hydrated, well nourished.. Head: Positive findings: large tender palpable lymph node to posterior right ear/neck. Ears: Positive findings: R TM: erythematous, erythema and edema of ear canal: on right. Health Maintenance List Hepatitis C Screening Never done HIV Screening Never done DTaP,Tdap,Td Vaccine(1 - Tdap) Never done Hepatitis B Vaccine(1 of 3 - 19+ 3-dose series) Never done Colorectal Cancer Screening Never done Covid-19 Vaccine( - 2022- season) Never done Behavioral Health Screening Never done Influenza Vaccine(1) due on 01/19/2024 Diabetes Screening due on 07/24/2026 Lipid Screening due on 07/24/2028 ASSESSMENT/PLAN: 1. Acute otitis media, right - ICD9: 382.9, ICD10: H66.91 - Will begin treatment with Amoxicillin for 7 days - AMOXICILLIN 875 MG TABLET If lymph node gets larger or does not resolve in 2 weeks notify office for further testing. Chiki verbalized understanding. Niraj Andino APRN.JOSHUA documented in this encounterA[facility]07-[facility]24 Telephone encounter Note * Telephone Encounter - Brain Babcock LPN - 11/20/2023 1:36 PM EDT Chiki has been advised of Dr Bay's instructions. She verbalizes understanding. She advises that she is in the hospital and her and daughters are helping to take care of pt. Brain Babcock LPN [facility] Miscellaneous Notes* Telephone Encounter - Brain Babcock LPN - 11/20/2023 1:36 PM EDT Chiki has been advised of Dr aBy's instructions. She verbalizes understanding. She advises that she is in the hospital and her and daughters are helping to take care of pt. Brain Babcock LPN * Telephone Encounter - Elder Bay MD - 11/20/2023 12:34 PM EDT I would only start an antibiotic if he starts to develop a moist sounding cough and/or fever. Just monitor for now. * Telephone Encounter - Levar Greer LPN - 11/20/2023 9:34 AM EDT Chiki pt's sister and guardian is in the hospital with pneumonia. Pt Pt's daughter also dx with pneumonia yesterday and was sent home on ATB. Grand daughter dx with a virus. Chiki caught pt drinking after her and her daughter. Pt can not communicate and Chiki is asking ifyou want to put pt on anything for precaution. Pt not showing any symptoms. Please advise Chiki. Levar Greer LPN documented in this encounterA[facility]07-[facility]-2024 Telephone encounter Note * Telephone Encounter - Elder Bay MD - 11/20/2023 12:34 PM EDT I would only start an antibiotic if he starts to develop a moist sounding cough and/or fever. Just monitor for now. [facility] Work Phone: [phone]) 708-714407-03-2024 Telephone encounter Note* Telephone Encounter - Levar Greer LPN - 11/20/2023 9:34 AM EDT Chiki pt's sister and guardian is in the hospital with pneumonia. Pt Pt's daughter also dx with pneumonia yesterday and was sent home on ATB. Grand daughter dx with a virus. Chiki caught pt drinking after her and her daughter. Pt can not communicate and Chiki is asking ifyou want to put pt on anything for precaution. Pt not showing any symptoms. Please advise Chiki. Levar Greer LPN [facility] Discharge summary Author Kong Maddox [facility] September 30, 2023 1:04am Note Date/Time September 29, 2023 10:12 pm [facility] Medical Records Department [address] [place] [address] Emergency Department Summary 09/29/23 MR#: [id number] Acct: [id number] Name: ARVIND DOMÍNGUEZ Rep #:[id number] : 1975 48 From: Kong Maddox MD PCP: Niraj Andino NP-C Status:REG ER Location: ED HPI HPI - GI History of Present Illness Chief Complaint: Nausea/Vomiting/Diarrhea Informant: patient and legal guardian Narrative Narrative: 48-year-old male with history of autism and schizophrenia who has had vomiting and diarrhea for the past 3 days, today it has been all extensive loose/watery nonmelanotic nonbloody diarrhea. No vomiting but he will not drink. Guardian is his half-sister, she states he looks pale, he will not stop touching his genitals, even keep his hands out of his diarrhea, he has had 8 baths today, andshe cannot get him to drink and does not know what else to do. No known sick contacts. No travel out of the area. No recent antibiotics for anything. PFSH PFSH Medical History Autism GERD (gastroesophageal reflux disease) Schizophrenia Home Medications cholecalciferol (vitamin D3) 25 mcg (1,000 unit) capsule 25 mcg PO DAILY 12/06/22 [History Last Taken Unknown] fluticasone propionate 50 mcg/actuation nasal spray,suspension intranasal 12/06/22 [History Last Taken Unknown] loratadine 10 mg chewable tablet (Claritin) 10 mg PO DAILY 12/06/22 [History Last Taken Unknown] olanzapine 5 mg disintegrating tablet 5 mg PO QHS #30 tabs 12/06/22 [Rx Last Taken Unknown] olanzapine 5 mg disintegrating tablet mg 12/06/22 [History Last Taken 12/06/22] omeprazole 40 mg capsule,delayed release 40 mg PO DAILY #30 caps 12/06/22 [Rx Last Taken Unknown] pantoprazole 40 mg tablet,delayed release 40 mg PO DAILY 09/29/23 [History Last Taken Unknown] ondansetron 8 mg disintegrating tablet 8 mg PO Q8H PRN nausea and vomiting #12 tabs 09/30/23 [Rx Last Taken Unknown] Allergy/AdvReac Type Severity Reaction Status Date / Time No Known Allergies Allergy Verified 09/29/23 21:08 Family History (Updated 12/06/22 @ 13:43 by Germania Brownlee) Mother Lung cancer Heart disease Father Lung cancer Social History household members: family Smoking Status: Never smoker ROS ROS ED Review of Systems ROS Unobtainable: due to mental status and other Details: Patient only responds yeah to every question for guardian and myself Constitutional Constitutional ED: Reports malaise; Denies chills or fever(s) Gastrointestinal Gastrointestinal: Reports diarrhea and vomiting EXAM Physical Exam Const Vital Signs: 09/29/23 21:08 09/29/23 23:08 Temperature 97.2 F L Temperature Source Temporal Pulse Rate 86 70 Respiratory Rate 18 16 Blood Pressure 125/90 H 121/74 H Blood Pressure Mean 101 89 Pulse Ox 95 97 Oxygen Delivery Method Room Air Room Air Positive well nourished and well developed General Appearance ED: well developed and NAD HEENT Reports moist mucous membranes normocephalic and atraumatic Eyes PERRL and EOMs intact bilaterally Neck full ROM and supple Resp normal respiratory effort and clear to auscultation bilaterally Cardio regular rate, regular rhythm and no murmurs GI GI Narrative: No significant objective tenderness, no palpable mass Inspection: abdominal distention Auscultation: hypoactive bowel sounds Palpation: soft Back/Spine General Back: other FROM Extremity normal to inspection General Extremety ED: Negative for edema, pulses abnormal or tenderness General Extremity: Negative for edema or pulses abnormal Neuro CN's II-XII intact bilaterally and no sensory deficits noted Neuro Narrative: At baseline mental status Sensorium / Orientation: awake and alert Motor Exam: strength 5/5 throughout Skin no rashes or lesions noted and no wounds MDM MDM MDM Narrative Medical decision making narrative: Labs obtained while we treated the patient with IV fluids, Zofran, actually perked up and looked a lot better and did well, tolerating oral fluids. I performed a CT scan given his history of autism and schizophrenia and difficultygetting history out of. I reviewed the images and report which I agree with, basically is consistent with gastroenteritis, also showing some mesenteritis butno signs of ischemic bowel. His labs are very reassuring looking. There is no leukocytosis or significant dehydration he has some mild hypokalemia but not to the point where I think he needs to stay for replacement. I offered admission, the sister is declining and states she is comfortable taking him home. I think giving him antidiarrheals is reasonable and I am giving him a prescription for Zofran to use as needed. She is comfortable with that plan we discussed reasonsto return. Lab Data Attestation: I reviewed the patient's lab results. Labs: Laboratory Results - last 24 hr 09/29/23 22:21 WBC 4.7 RBC 4.90 Hgb 13.9 Hct 43.3 MCV 88.4 MCH 28.4 MCHC 32.1 RDW Std Deviation 43.0 RDW Coeff of Dc 13.2 Plt Count 206 MPV 10.7 Immature Gran % (Auto) 0.400 Neut % (Auto) 52.8 Lymph % (Auto) 21.9 [place] % (Auto) 16.5 H Eos % (Auto) 7.8 H Baso % (Auto) 0.6 Absolute Neuts (auto) 2.5 Absolute Lymphs (auto) 1.04 Nucleated RBC % 0 Sodium 137 Potassium 3.3 L Chloride 103 Carbon Dioxide 27.0 Anion Gap 7 BUN 13 Creatinine 0.83 Estim Creat Clear Calc 100.02 Est GFR (MDRD) Af Amer 128 Est GFR (MDRD) Non-Af 106 BUN/Creatinine Ratio 15.7 Glucose 98 Calcium 8.5 Total Bilirubin 0.50 AST 29 ALT 66 H Alkaline Phosphatase 105 Total Protein 7.0 Albumin 3.3 Globulin 3.7 Albumin/Globulin Ratio 0.9 Lipase 16 Radiography Diagnostic Testing: Clinical Impression(s) from Imaging Studies Abdomen/Pelvis CT 09/29/23 22:08 IMPRESSION: 1. Mild central mesenteric stranding with associated small lymph nodes suggest mesenteritis or panniculitis. 2. Benign left renal cysts. 3. Fluid in the colon without wall thickening can be seen with diarrhea. Electronically Signed: Bimal Choi MD at 0:02 EDT , Discharge Plan Triage Chief Complaint: Nausea/Vomiting/Diarrhea ED Provider: Kong Maddox Dx/Rx/DC Orders Clinical Impression: Hypokalemia due to excessive gastrointestinal loss of potassium, Gastroenteritis Instructions: Viral Gastroenteritis Prescriptions: New ondansetron 8 mg tablet,disintegrating 8 mg PO Q8H PRN (Reason: nausea and vomiting) Qty: 12 0RF No Action fluticasone propionate 50 mcg/actuation spray,suspension INTRANASAL Patient Comments: USE 1 (ONE) SPRAY IN EACH NOSTRIL DAILY DIRECTED olanzapine 5 mg tablet,disintegrating Patient Comments: Take 1 tablet (5 mg) by mouth once every day. cholecalciferol (vitamin D3) 25 mcg (1,000 unit) capsule 25 mcg PO DAILY Claritin 10 mg tablet,chewable 10 mg PO DAILY olanzapine 5 mg tablet,disintegrating 5 mg PO QHS Qty: 30 1RF omeprazole 40 mg capsule,delayed release(DR/EC) 40 mg PO DAILY Qty: 30 1RF pantoprazole 40 mg tablet,delayed release (DR/EC) 40 mg PO DAILY Primary Care Provider: Niraj Andino Referrals: Niraj Andino JOSIE-C [Primary Care Provider] - 3-5 Days if not improving Disposition Disposition: Home, Self Care What to do if you have Problems For any increased pain, shortness of breath, bleeding, nausea or vomiting, chestpain, or any unexpected problems, contact your Primary Care Provider. Call [facility] ([phone]) or report to the closest Emergency Room. Call 911 if necessary. 09/30/23 0104 <Electronically signed by Kong Maddox MD> Cosigner Signature (if applicable): CC: JOSIE-Magda Andino ~ Signed [facility] Work Phone: 1(486) 153-548705-09-2024 Telephone encounter Note* Telephone Encounter - Tram Barajas RN - 09/26/2023 2:06 PM EDT Reason for Disposition [1] MODERATE pain (e.g., interferes with normal activities, limping) AND [2] present > 3 days Answer Assessment - Initial Assessment Questions 1. ONSET: Pt's sister calling and states she is noticing that pt is limping and kind of drags his left foot when he walks-almost like a thumping sound. 2. LOCATION: left leg 3. PAIN: Sister states patient does not appear to have pain in the leg and when she presses on it, pt does not grimace in pain. When asked, pt answers yes when she asks him if he is having pain. Pt has developmental disabilities - MILD (1-3): doesn't interfere with normal activities - MODERATE (4-7): interferes with normal activities (e.g., work or school) or awakens from sleep, limping - SEVERE (8-10): excruciating pain, unable to do any normal activities, unable to walk 4. WORK OR EXERCISE: Sister denies 5. CAUSE: unsure 6. OTHER SYMPTOMS: n/a Denies redness or swelling 7. : n/a Protocols used: Leg [id number] [facility]05-09-2024 Miscellaneous Notes* Telephone Encounter - Tram Barajas RN - 09/26/2023 2:06 PM EDT Reason for Disposition [1] MODERATE pain (e.g., interferes with normal activities, limping) AND [2] present > 3 days Answer Assessment - Initial Assessment Questions 1. ONSET: Pt's sister calling and states she is noticing that pt is limping and kind of drags his left foot when he walks-almost like a thumping sound. 2. LOCATION: left leg 3. PAIN: Sister states patient does not appear to have pain in the leg and when she presses on it, pt does not grimace in pain. When asked, pt answers yes when she asks him if he is having pain. Pt has developmental disabilities - MILD (1-3): doesn't interfere with normal activities - MODERATE (4-7): interferes with normal activities (e.g., work or school) or awakens from sleep, limping - SEVERE (8-10): excruciating pain, unable to do any normal activities, unable to walk 4. WORK OR EXERCISE: Sister denies 5. CAUSE: unsure 6. OTHER SYMPTOMS: n/a Denies redness or swelling 7. : n/a Protocols used: Leg [id number] documented in [facility] encounterA[facility]05-[facility] Telephone encounter Note * Telephone Encounter - Holley Bashir MA - 09/20/2023 2:20 PM EDT We have not received anything at this time Holley Bashir MA [facility]05-03-2024 Miscellaneous Notes* Telephone Encounter - Holley Bashir MA - 09/20/2023 2:20 PM EDT We have not received anything at this time Holley Bashir MA * Telephone Encounter - Tram Barajas RN - 09/20/2023 1:39 PM EDT Checking to see if any results of testing came through? * Telephone Encounter - Tram Barajas RN - 09/16/2023 12:32 PM EDT Pt's sister Chiki calling as she states Niraj Andino referred Arvind to [employer] to be tested for autism. States she feels he was tested around 07/26/23. No report has been received and she has called to get it several times and they keep telling her that it is not ready. Chiki is wondering ifNiraj's office could call and check on the report. The provider who did the testing was Dr. Millie Dotson. Phone number is [phone] Called and spoke with Leanne at [facility]. She states the testing was done on 08/16/23. She is unable to see the report so she reached out to Dr. Dotson and expects a response back from him. She was given Niraj Andino's office fax #to send to us and asked to call us when report is completed and faxed. documented in [facility] encounterA[facility]05-[facility] Telephone encounter Note * Telephone Encounter - Tram Barajas RN - 09/20/2023 1:39 PM EDT Checking to see if any results of testing came through? [facility]04-29-2024 Telephone encounter Note* Telephone Encounter - Tram Barajas RN - 09/16/2023 12:32 PM EDT Pt's sister Chiki calling as she states Niraj Andino referred Arvind to [employer] to be tested for autism. States she feels he was tested around 07/26/23. No report has been received and she has called to get it several times and they keep telling her that it is not ready. Chiki is wondering ifNiraj's office could call and check on the report. The provider who did the testing was Dr. Millie Dotson. Phone number is [phone] Called and spoke with Leanne at [facility]. She states the testing was done on 08/16/23. She is unable to see the report so she reached out to Dr. Dotson and expects a response back from him. She was given Niraj Andino's office fax #to send to us and asked to call us when report is completed and faxed. [facility]04-15-2024 Instructions* Patient Instructions* Georgia Milton APRN.CNS - 09/02/2023 3:32 PM EDT 1) Bactrim DS- 20 ml 2 x day for 10 days 2) Given with a full glass of water 3) Follow up in 4months documented in this encounterAultman Hospital04-15-2024 History of Present illness Narrative* Georgia Milton APRN.CNS - 09/02/2023 3:12 PM EDT This is a 48 year old male who presents today with: No chief complaint on file. HISTORY OF PRESENT ILLNESS: Arvind Domínguez is a 48 year old male. No chief complaint on file. Very agitated since 5 am yesterday. Picking face and back raw, areas that are warm to the touch and red on forehead, neck and back- several open areas Sister is caregiver and worried about him. Was not able to get him on antibiotic for UTI. Tugging on ear. No loss of appetite. Very restless. No loss of bowel or bladder function. Insurance declined coverage for probable UTI because pt. wass not able to give urine specimen. PAST MEDICAL HISTORY: PAST MEDICAL HISTORY Diagnosis Date Autism GERD (gastroesophageal reflux disease) Mental disability Schizophrenia (HCC) Underweight due to inadequate caloric intake Vitamin D deficiency No past surgical history on file. ALLERGIES Patient has no known allergies. MEDICATIONS Current Outpatient Medications Medication Sig ferrous sulfate 220 mg/5 mL elix Take 7.4 mL by mouth once daily. calcium carbonate (CALCIUM ANTACID) 500 mg chew Take 2 tablets by mouth once daily. cyanocobalamin (VITAMIN B-12) 1,000 mcg tab Take 1 tablet by mouth once daily. Takes as a gummie selenium 50 mcg tab Take 1 tablet by mouth once daily. Takes as a gummie Zinc Sulfate 25 mg zinc (110 mg) tab Take 25 tablets by mouth once daily. Takes as a gummie omega-3 DHA-EPA (FISH OIL) 1,200 (144-216) mg capsule Take 1 capsule by mouth daily with breakfast. ascorbic acid, vitamin C, (VITAMIN C) 500 mg tablet Take 1 tablet by mouth once daily. ergocalciferol 50,000 unit capsule (VITAMIN D2, DRISDOL) Take 1 capsule by mouth one time a week. diphenhydrAMINE (BENADRYL) 25 mg capsule Take 1-2 capsules by mouth at bedtime as needed. food supplemt, lactose-reduced (BOOST MEN) 0.08 gram- 0.9 kcal/mL liqd Take 1 Bottle by mouth two times a day before meals. mirtazapine (REMERON) 15 mg tablet Take 15 mg by mouth daily at bedtime. melatonin 10 mg chew Take 1 Each by mouth once daily. pantoprazole DR (PROTONIX) 40 mg tablet Take 1 tablet by mouth once daily. (capsule) fluticasone (FLONASE) 50 mcg/actuation nasal spray Use 1 Casanova in each nostril once daily. loratadine 10 mg dissolvable tablet Take 10 mg by mouth once daily. OLANZapine orally disintegrating (ZYPREXA ZYDIS) 5 mg disintegrating tablet Take 5 mg by mouth daily at bedtime. Nutritional Supplements (ENSURE PUDDING) pudg Take 113 g by mouth twice daily. No current facility-administered medications for this visit. No family history on file. Social History Tobacco Use Smoking status: Never Smokeless tobacco: Never Substance Use Topics Alcohol use: Never Drug use: Never EXAM: BP 120/78 Pulse 81 Temp 36.6 C (97.8 F) (Left Tympanic) Resp 16 Wt 63.5 kg (140 lb) SpO2 99% BMI 20.09 kg/m PHYSICAL EXAM: General Appearance: Well appearing, alert, in no acute distress, well-hydrated, well nourished. andThin. Skin: Skin color pale, texture, turgor delayed, facial skin lesions red and inflamed with open areas and tiny pustules on forehead ad back. Facial and back lesions red and warm to the touch but posterior neck only red Head: Normocephalic, no masses, lesions, tenderness or abnormalities. Ears: External ears normal, canals clear. Nose/Sinuses: Nares normal, septum midline, mucosa normal, no drainage or sinus tenderness. Lungs: Lungs clear to auscultation. No wheezing, rhonchi, rales.. Heart: RRR without murmur, gallop, or rubs. Mental health: increased agitation, pacing. LABS: ASSESSMENT/PLAN: 1. Cellulitis of skin - ICD9: 682.9, ICD10: L03.90 (primary diagnosis) - Begin treatment with Trimethoprim-sulfamethozazole (Bactrim) liquid DS PO BID 2. 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 Non-verbal learning disorder - ICD9: 315.2, ICD10: F81.89 Ongoing 4. Possible UTI- sister able to get urine today Discussed treatment plan and patient voices understanding. Patient's questions answered appropriately. Medications and potential side effects were discussed and patient voices understanding. Return to the office as scheduled or as needed for worsening/no improvement. Georgia Milton APRN.CNS The patient indicates understanding of these issues and agrees with the plan. documented in this encounterA[facility]03-[facility]24 Miscellaneous Notes* Telephone Encounter - Patricia Chicas RN - 08/05/2023 4:19 PM EDT Sister (Chiki) calls to report that she is having trouble getting the iron in liquid form. Pharmacistirvin Martin told her he could get it for her but has to have a prescription. Pended per request. Please review. Patricia Chicas RN documented in this encounterAultman Hospital03-12-2024 Miscellaneous Notes* Telephone Encounter - Patricia Chicas RN - 07/30/2023 9:18 AM EDT Call to sister (Chiki) and notified of below. Chiki voices understanding. Chiki requests to add the following vitamins to patient's medication list as well: Calcium 500 mg w/vitamin d 2 daily B-12 1000 mcg daily Selenium 50 mcg daily Zinc 25 mg daily Patricia Chicas RN * Telephone Encounter - Niraj Andino APRN.JOSHUA - 07/30/2023 8:39 AM EDT These are all OTC supplements and can be purchased in a form he can take. * Telephone Encounter - Debbie Goel LPN - 07/30/2023 8:35 AM EDT Pt's sister calls to report on 07/26/23 pt was prescribed Fish oil,iron,Vit C, and Vit D2. Sister reports pt cannot swallow pills. These need to be in liquid form, dissolvable, or gummies. Please review. Call sister with provider message. Debbie Goel LPN documented in this encounterAultman Hospital03-08-2024 Miscellaneous Notes* Telephone Encounter - Leann Cruz RN - 07/26/2023 4:46 PM EST Chiki returned call and given provider's message below with verbalized understanding. * Telephone Encounter - Holley Bashir MA - 07/26/2023 2:24 PM EST Left message for patient to return call to office Holley Bashir MA * Telephone Encounter - Niraj Andino APRN.JOSHUA - 07/26/2023 1:30 PM EST Please let Chiki know patients cholesterol is elevated as well as his triglycerides. I would like Etienne to start a fish oil supplement. Also his iron and vitamin d are low. I have sent prescriptions foriron supplementation plus vitamin c for better absorption of the iron as well as weekly vitamin d henao pplementation. documented in this encounterA[facility]man [facility]03-07-2024 History of Present illness Narrative* Niraj Andino APRN.JOSHUA - 07/25/2023 3:29 PM EST Chief Complaint Patient presents with: Follow Up HPI Arvind Domínguez is a 48 year old male who presents here today for Above Complaints.. Patient presents for routine follow up. Patient's sister reports patient has been working with OT on feeding and patient has been more physically combative when having to sit and eat. Also [facility] and undergoing evaluation for autism spectrum disorder. Past medical history, appointments, medications, allergies reviewed. Previous Medical History PAST MEDICAL HISTORY Diagnosis Date Autism GERD (gastroesophageal reflux disease) Mental disability Schizophrenia (HCC) Underweight due to inadequate caloric intake Vitamin D deficiency Previous Surgical History No past surgical history on file. Family History No family history on file. Patient Allergies ALLERGIES No Known Allergies Current Medications Current Outpatient Medications on File Prior to Visit Medication Sig diphenhydrAMINE (BENADRYL) 25 mg capsule Take 1-2 capsules by mouth at bedtime as needed. food supplemt, lactose-reduced (BOOST MEN) 0.08 gram- 0.9 kcal/mL liqd Take 1 Bottle by mouth two times a day before meals. mirtazapine (REMERON) 15 mg tablet Take 15 mg by mouth daily at bedtime. melatonin 10 mg chew Take 1 Each by mouth once daily. pantoprazole DR (PROTONIX) 40 mg tablet Take 1 tablet by mouth once daily. (capsule) fluticasone (FLONASE) 50 mcg/actuation nasal spray Use 1 Casanova in each nostril once daily. loratadine 10 mg dissolvable tablet Take 10 mg by mouth once daily. OLANZapine orally disintegrating (ZYPREXA ZYDIS) 5 mg disintegrating tablet Take 5 mg by mouth daily at bedtime. Nutritional Supplements (ENSURE PUDDING) pudg Take 113 g by mouth twice daily. cholecalciferol (VITAMIN D) 1,000 unit tab tablet Take 1 tablet by mouth once daily. No current facility-administered medications on file prior to visit. Social History Social History Tobacco Use Smoking status: Never Smokeless tobacco: Never Substance Use Topics Alcohol use: Never Drug use: Never Review of Symptoms REVIEW OF SYSTEMS SEE HPI EXAM: BP 120/80 Pulse 84 Resp 14 Wt 61.2 kg (135 lb) BMI 19.37 kg/m General Appearance: Well appearing, alert, in no acute distress, well-hydrated, well nourished.. Lungs: Lungs clear to auscultation. No wheezing, rhonchi, rales.. Heart: RRR without murmur, gallop, or rubs. No ectopy. Abdomen: Normal abdominal exam, Abdomen soft, non-tender. Bowel sounds normal. No masses, organomegaly. Health Maintenance List Hepatitis B Vaccine(1 of 3 - 3-dose series) Never done Covid-19 Vaccine(1) Never done Hepatitis C Screening Never done HIV Screening Never done DTaP,Tdap,Td Vaccine(1 - Tdap) Never done Colorectal Cancer Screening Never done Depression Assessment Never done Diabetes Screening due on 06/25/2026 Lipid Screening due on 07/26/2026 Influenza Vaccine Completed ASSESSMENT/PLAN: 1. Non-verbal learning disorder - ICD9: 315.2, ICD10: F81.89 (primary diagnosis) -Continue current therapies and evaluation for ASD 2. Moderate protein-calorie malnutrition (HCC) - ICD9: 263.0, ICD10: E44.0 -Weight improved and steady food intake 3. Schizophrenia, unspecified type (HCC) - ICD9: 295.90, ICD10: F20.9 -Continue with psychiatry 4. GERD without esophagitis - ICD9: 530.81, ICD10: K21.9 - Discussed lifestyle modifications including losing weight, limiting caffeine, no meals three hours before sleep, and head of bed elevation - Continue treatment with protonix QD 5. Paleness - ICD9: 782.61, ICD10: R23.1 - CBC + DIFF - IRON + TIBC - FOLATE SERUM - FERRITIN BLD - VITAMIN B12 BLOOD - VITAMIN D 25 HYDROXY 6. Family history of thyroid disease - ICD9: V18.19, ICD10: Z83.49 - TSH BLD 7. Screening for diabetes mellitus - ICD9: V77.1, ICD10: Z13.1 - HGB A1C 8. Encounter for lipid screening for cardiovascular disease - ICD9: V77.91, V81.2, ICD10: Z13.220, Z13.6 - LIPID PANEL, NONFASTING Niraj Andino APRN.JOSHUA documented in this encounterA[facility]02-08-2024 Miscellaneous Notes* Telephone Encounter - Radha Wall LPN - 06/27/2023 12:59 PM EST Patient sister Chiki Gill returned call and went over results, notes from Niraj Andino CORPORATE BUYER with understanding. * Telephone Encounter - Holley Bashir Cma - 06/27/2023 10:10 AM EST Left message for patient to return call to office Holley Bashir Cma * Telephone Encounter - Niraj Andino APRN.CNP - 06/27/2023 8:21 AM EST Please let florietn know he tested positive for influenza B. This explains his lethargy and decreased appetite. documented in this encounterA[facility] Hospital02-07-2024 Miscellaneous Notes* Telephone Encounter - Levar Greer LPN - 06/26/2023 10:31 AM EST Closing encounter. Levar Greer LPN * Telephone Encounter - Radha Wall LPN - 06/26/2023 10:06 AM EST Patient sister Chiki Gill returned call and went over results from Niraj Andino [employer]POR[employer] with understanding. * Telephone Encounter - Nina Velez RN - 06/25/2023 4:29 PM EST Called Pts sister and no answer. Pt did not have voicemail set up. Will need to call back. Nina Velez RN * Telephone Encounter - Niraj Andino APRN.CNP - 06/25/2023 3:05 PM EST Please let patient know their xray is normal. documented in this encounterAultman Hospital02-06-2024 History of Present illness Narrative* Klaus Laughlin, RT(R) - 06/25/2023 11:00 AM EST Radiology Service Progress Note PATIENT NAME: Arvind Domínguez DATE OF SERVICE: June 25, 2023 TIME: 10:53 AM PATIENT IDENTITY VERIFICATION COMPLETED USING TWO (2) IDENTIFIERS: Name and Date of obtained from a relative, guardian or prior caregiver.. FALL SCREENING: Has the patient had 2 falls in the last year or 1 fall with injury or currently using an Ambulatory Assistive Device (Walker, Cane, Wheelchair, Crutches, etc.)? No PATIENT GENDER DATA: Male PATIENT RELEVANT IMPLANT DATA REVIEWED: Not Applicable PATIENT PRESENTS WITH AN IMPLANTABLE OR ATTACHED PILEDRIVER CARPENTER: No RADIOLOGY DEPARTMENT: General X-ray: Exam(s) Completed: Abdomen X-Ray: Abdomen PERIPHERAL IV DATA: Not applicable SIGNED BY: RT Caterina(R) June 25, 2023 10:53 AM documented in this encounterAultman Hospital12-19-2023 Miscellaneous Notes* Telephone Encounter - Michelle Tijerina RN - 05/07/2023 11:20 AM EST Chiki calls back and phone number given. Michelle Tijerina RN * Telephone Encounter - Flavia Henson MA - 05/07/2023 10:41 AM EST Chiki notified. She is currently driving and will call back to take phone number for [facility] [employer]. . Flavia Henson MA * Telephone Encounter - Niraj Andino APRN.JOSHUA - 05/07/2023 9:47 AM EST Please let chiki know I spoke to someone at [facility] in [place]. I have given them Arvind's information. They are currently booking out til july 2023. Their phone number is [phone] and they are expecting your call to set up an appointment. * Telephone Encounter - Nina Velez RN - 05/07/2023 9:12 AM EST Pts sister called and is notified of providers message. She voices understanding, and states if they have to she would rather be put on a 3 year wait list than none at all. She states Pt isn't even pacing like he used to, he just lays around. She said he has expressed himself using the emojis to show stressed and anxious. Nina Velez RN * Telephone Encounter - Niraj Andino APRN.JOSHUA - 05/06/2023 5:19 PM EST Please let chiki know I am still working on autism referral. I have calls out to multiple facilities.[facility] has a 3 year waitlist for adult evaluation. * Telephone Encounter - Michelle Tijerina RN - 05/06/2023 4:01 PM EST Patient's sister Chiki calls and is asking if provider got the chance to check with Autism Doctor or ENT about patient's hearing issues. Please review and advise, Michelle Tijerina RN documented in this encounterAultman Hospital12-06-2023 Miscellaneous Notes* Telephone Encounter - Michelle Tijerina RN - 04/24/2023 1:02 PM EST Patient's sister Chiki calls and wanted provider to know that the ear drops that provider ordered thepatient will not let Chiki put them in ear. Michelle Tijerina RN * Telephone Encounter - Michelle Tijerina RN - 04/24/2023 12:50 PM EST Patient's sister Chiki calls and states that she had talked to [facility] about boost. Chiki states thatshe was told that if provider sent a prescription there, [facility] would try to get Boost in for patient. Please review and advise, Michelle Tijerina RN documented in this encounterAultman Hospital12-01-2023 History of Present illness Narrative* Niraj Andino APRN.JOSHUA - 04/19/2023 8:56 AM EST Chief Complaint Patient presents with: Follow Up HPI Arvind Domínguez is a 47 year old male who presents here today for Above Complaints.. Patient presents for concerns regarding eating habits. Patient's sister reports he is being more picky about wheat he wants to eat. Patient is only completing meals that are fast food and not wantingto eat home cooked things. Patient has also signaled to his sister that his throat hurts and head hurts. Past medical history, appointments, medications, allergies reviewed. Previous Medical History PAST MEDICAL HISTORY Diagnosis Date Autism GERD (gastroesophageal reflux disease) Mental disability Schizophrenia (HCC) Underweight due to inadequate caloric intake Vitamin D deficiency Previous Surgical History No past surgical history on file. Family History No family history on file. Patient Allergies ALLERGIES No Known Allergies Current Medications Current Outpatient Medications on File Prior to Visit Medication Sig mirtazapine (REMERON) 15 mg tablet Take 15 mg by mouth daily at bedtime. food supplemt, lactose-reduced (BOOST MEN) 0.08 gram- 0.9 kcal/mL liqd Take 1 Bottle by mouth two times a day before meals. melatonin 10 mg chew Take 1 Each by mouth once daily. pantoprazole DR (PROTONIX) 40 mg tablet Take 1 tablet by mouth once daily. (capsule) fluticasone (FLONASE) 50 mcg/actuation nasal spray Use 1 Casanova in each nostril once daily. loratadine 10 mg dissolvable tablet Take 10 mg by mouth once daily. OLANZapine orally disintegrating (ZYPREXA ZYDIS) 5 mg disintegrating tablet Take 5 mg by mouth daily at bedtime. Nutritional Supplements (ENSURE PUDDING) pudg Take 113 g by mouth twice daily. cholecalciferol (VITAMIN D) 1,000 unit tab tablet Take 1 tablet by mouth once daily. No current facility-administered medications on file prior to visit. Social History Social History Tobacco Use Smoking status: Never Smokeless tobacco: Never Substance Use Topics Alcohol use: Never Drug use: Never Review of Symptoms REVIEW OF SYSTEMS SEE HPI EXAM: BP 112/66 Pulse 80 Resp 14 Wt 59.4 kg (131 lb) BMI 18.80 kg/m General Appearance: Well appearing, alert, in no acute distress, well-hydrated, well nourished.. Nose/Sinuses: Nares normal, septum midline, mucosa normal, no drainage or sinus tenderness. Oropharynx: Lips, mucosa, and tongue normal, teeth and gums normal, oropharynx normal. Ears: Positive findings: cerumen on left, amount Large Lungs: Lungs clear to auscultation. No wheezing, rhonchi, rales.. Heart: RRR without murmur, gallop, or rubs. No ectopy. Abdomen: Normal abdominal exam, Abdomen soft, non-tender. Bowel sounds normal. No masses, organomegaly Health Maintenance List Hepatitis B Vaccine(1 of 3 - 3-dose series) Never done Covid-19 Vaccine(1) Never done Hepatitis C Screening Never done HIV Screening Never done DTaP,Tdap,Td Vaccine(1 - Tdap) Never done Colorectal Cancer Screening Never done Depression Assessment Never done Diabetes Screening due on 12/25/2025 Lipid Screening due on 07/26/2026 Influenza Vaccine Completed HPV Vaccine Aged Out ASSESSMENT/PLAN: 1. Picky eater - ICD9: 783.3, ICD10: R63.39 (primary diagnosis) -Patient is eating and weight is up so likely patient is being selective about what he wants to eatversus not eating. Patient does not admit to pain in office. 2. Impacted cerumen of left ear - ICD9: 380.4, ICD10: H61.22 Patient's sister is encouraged to use debrox drops to ears. 3. Non-verbal learning disorder - ICD9: 315.2, ICD10: F81.89 - CONSULT TO SPEECH THERAPY Will discuss case with autism center for guidance with therapies and treatments available. Niraj Andino APRN.JOSHUA documented in this encounterAultman Hospital10-12-2023 History of Present illness Narrative* Niraj Andino APRN.UTILITY ENGINEER - 02/28/2023 5:19 PM EDT Chief Complaint Patient presents with: Cough: X 2 weeks HPI Arvind Domínguez is a 47 year old male who presents here today for Above Complaints.. Patient presents for cough in am for two weeks. Patient's sister reports that it only happens in the morning and then it gets better during the day. Sister reports at one point he coughed so hard he threw up sputum. Past medical history, appointments, medications, allergies reviewed. Previous Medical History PAST MEDICAL HISTORY Diagnosis Date Autism GERD (gastroesophageal reflux disease) Mental disability Schizophrenia (HCC) Underweight due to inadequate caloric intake Vitamin D deficiency Previous Surgical History No past surgical history on file. Family History No family history on file. Patient Allergies ALLERGIES No Known Allergies Current Medications Current Outpatient Medications on File Prior to Visit Medication Sig cholecalciferol (VITAMIN D) 1,000 unit tab tablet Take 1 tablet by mouth once daily. fluticasone (FLONASE) 50 mcg/actuation nasal spray Use 1 Casanova in each nostril once daily. food supplemt, lactose-reduced (BOOST MEN) 0.08 gram- 0.9 kcal/mL liqd Take 1 Bottle by mouth two times a day before meals. loratadine 10 mg dissolvable tablet Take 10 mg by mouth once daily. Nutritional Supplements (ENSURE PUDDING) pudg Take 113 g by mouth twice daily. OLANZapine orally disintegrating (ZYPREXA ZYDIS) 5 mg disintegrating tablet Take 5 mg by mouth daily at bedtime. pantoprazole (PROTONIX) 40 mg grps Take 0.5 Packets by mouth DAILY ([address] (PROTONIX) 40 mg tablet Take 1 tablet by mouth once daily. (capsule) No current facility-administered medications on file prior to visit. Social History Social History Tobacco Use Smoking status: Never Smokeless tobacco: Never Substance Use Topics Alcohol use: Never Drug use: Never Review of Symptoms REVIEW OF SYSTEMS SEE HPI EXAM: BP 120/70 Pulse 90 Temp 36.7 C (98.1 F) Resp 16 Wt 57.2 kg (126 lb) BMI 18.08 kg/m General Appearance: Well appearing, alert, in no acute distress, well-hydrated, well nourished.. Lungs: Lungs clear to auscultation. No wheezing, rhonchi, rales.. Heart: RRR without murmur, gallop, or rubs. No ectopy. Health Maintenance List Hepatitis B Vaccine(1 of 3 - 3-dose series) Never done Covid-19 Vaccine(1) Never done Hepatitis C Screening Never done HIV Screening Never done DTaP,Tdap,Td Vaccine(1 - Tdap) Never done Colorectal Cancer Screening Never done Depression Assessment Never done Influenza Vaccine(1) Never done Diabetes Screening due on 12/25/2025 Lipid Screening due on 07/26/2026 HPV Vaccine Aged Out ASSESSMENT/PLAN: 1. Encounter for immunization - ICD9: V03.89, ICD10: Z23 (primary diagnosis) - INFLUENZA VACCINE, AGE 6 MO - 64 YR, QUADRIVALENT (AFLURIA, FLULAVAL, FLUZONE) 2. Chronic insomnia - ICD9: 780.52, ICD10: F51.04 - MELATONIN 10 MG CHEWABLE TABLET Niraj Andino APRN.CNP documented [facility]10-[facility]23 Miscellaneous Notes* Telephone Encounter - Niraj Andino APRN.CNP - 02/28/2023 8:05 AM EDT Ordered, please fax to number below. * Telephone Encounter - Merna Graves LPN - 02/25/2023 2:59 PM EDT Chiki calling and would like Rx for Boost high Calorie faxed to [facility] with Chart note and letter of medical necessity. Fax to [phone] documented in this encounterAult[facility]09-18-2023 Miscellaneous Notes* Telephone Encounter - Nina Velez RN - 02/04/2023 10:24 AM EDT Pts sister called in and wanted to give us the phone numbers of the people working with the Pt and trying to help him find a new psychiatrist for medication in [place]. They are [employer] (Donna Patricia) [phone] ext [phone] and [employer] (Miriam Wolf) [phone]. She states she is trying to keep him out of the [facility] if at all possible. He has one more refill left on his meds. She also reports Pt will be changing insurance on February 17, 2023. I told her to call scheduling and they can update that in the computer for her, and she can get them scanned in at his next appointment. documented in this encounterAultman Hospital08-25-2023 Miscellaneous Notes* Telephone Encounter - Nina Velez RN - 01/11/2023 12:18 PM EDT Protocol recommends go to ER now. Pt sister is going to take him to the ER. Care plan reviewed withpatient. Patient voices understanding. Advised patient that if symptoms get worse to call 911. Reason for Disposition [1] Drinking very little AND [2] dehydration suspected (e.g., no urine > 12 hours, very dry mouth, very lightheaded) Answer Assessment - Initial Assessment Questions 1. TEMPERATURE: 104 with a temporal thermometer. 2. ONSET: The fever started last night. 3. CHILLS: Pt is non-verbal. - NONE: no chills - MILD: feeling cold - MODERATE: feeling very cold, some shivering (feels better under a thick blanket) - SEVERE: feeling extremely cold with shaking chills (general body shaking, rigors; even under a thick blanket) They took his blanket away, afraid he would wrap up in it. 4. OTHER SYMPTOMS: States he is pointing to his abdomen pain and chest. She reports last week Pt was having heartburn and they started giving him medicine for it, but he is still pointing to his chest and stomach like it is still hurting. Pt had a small amount of diarrhea last night. 5. CAUSE: N/A 6. CONTACTS: Denies anyone else in the family having an infection. 7. TREATMENT: Given Tylenol for fever. 8. IMMUNOCOMPROMISE: Denies 9. : N/A 10. TRAVEL: Denies Protocols used: [id number] documented in this encounterAultman [facility]08-14-2023 Miscellaneous Notes* Telephone Encounter - Tram Barajas RN - 12/31/2022 3:15 PM EDT Pt's sister calling and states she needs pt's prescription changed from packets to capsules. Pt's insurance will not cover the packets. She wants Pantoprazole capsules so that she can open them and put the powder in her brother's applesauce and give it to him that way. Note placed on prescription to fill with capsules. Patient has been identified by name and date of : Yes, Provider Niraj Andino Date 12/31/22 Time 1510 Pt's sister phones for refill(s): Requested Prescriptions Pending Prescriptions Disp Refills pantoprazole DR (PROTONIX) 40 mg tablet 90 tablet 1 Sig: Take 1 tablet by mouth once daily. (capsule) Date of last office visit in primary care: 12/25/22 Next ov 05/15/23 Last 2 Encounter Wt Readings: Date: Wt: 12/25/2022 54.9 kg (121 lb) 12/06/2022 52.6 kg (116 lb) Previous labs/tests for medication: Liver Function: ALT (U/L) Date Value 12/25/2022 109 AST (U/L) Date Value 12/25/2022 51 Please advise. Thank you. Tram Barajas RN documented in this encounterAult[facility] Hospital08-11-2023 Miscellaneous Notes* Telephone Encounter - Michelle Tijerina RN - 12/28/2022 12:32 PM EDT Patient's sister Chiki notified that prescription was sent to pharmacy. Michelle Tijerina RN * Telephone Encounter - Michelle Tijerina RN - 12/28/2022 11:57 AM EDT Patient's sister Chiki calls and is frustrated, pharmacy has not filled prescription because they said that prescription is for the pill form. Can we send in prescription again to pharmacy for packets? Last Office Visit: 12/25/2022 Future Office Visit: 05/15/2023 Requested Prescriptions Pending Prescriptions Disp Refills pantoprazole (PROTONIX) 40 mg grps 90 Each 0 Sig: Take 0.5 Packets by mouth DAILY (6 AM). Date of Last Labs: 12/25/2022 documented in this encounterA[facility]08-10-2023 Miscellaneous Notes* Telephone Encounter - Holley Bashir Cma - 12/27/2022 10:13 AM EDT Patients sister Chiki notified and verbalized understanding Holley Bashir Cma * Telephone Encounter - Niraj Andino APRN.CNP - 12/27/2022 9:56 AM EDT Please let patient know his labs are within normal. documented in this encounterA[facility] Hospital08-09-2023 Miscellaneous Notes* Telephone Encounter - Lorrie Monk Ma - 12/26/2022 6:10 PM EDT Images from the original note were not included. Approved and sister was notified * Telephone Encounter - Lorrie Monk Ma - 12/26/2022 2:51 PM EDT Received fax from [employer] advising cannot be processed as the member has a COB. Please Bill to primary payer. Called laura who advised that patient has medicare that is active can not see active medicaid through [employer] portal. Called neftali who advised PA needed and will send fax Completed through [employer]: [id number] * Telephone Encounter - Lorrie Monk Ma - 12/25/2022 3:41 PM EDT Provider requested PA completed for pantoprazole packets Prior Authorization has been completed online at [employer] for Pantoprazole packets, will await response. [id number] Please keep encounter open until final decision has been received and documented from insurance company. Lorrie Monk MA documented in this encounterAultman Hospital08-08-2023 History of Present illness Narrative* Niraj Andino APRN.UTILITY ENGINEER - 12/25/2022 3:24 PM EDT Chief Complaint Patient presents with: ER F/U HPI Arvind Domínguez is a 47 year old male who presents here today for Above Complaints.. Patient presents for ER follow up. Patient's sister reports they went to a family reunion on Saturday and the family kept feeding him and believes this may all be from over eating. Patient was in ER 12/23/2022 and imaging was negative however patient was noted to have elevated liver enzymes. Patient answers yes to having belly pain and points to periumbilical area. Past medical history, appointments, medications, allergies reviewed. Previous Medical History PAST MEDICAL HISTORY Diagnosis Date Autism GERD (gastroesophageal reflux disease) Mental disability Schizophrenia (HCC) Underweight due to inadequate caloric intake Vitamin D deficiency Previous Surgical History No past surgical history on file. Family History No family history on file. Patient Allergies ALLERGIES No Known Allergies Current Medications Current Outpatient Medications on File Prior to Visit Medication Sig pantoprazole (PROTONIX) 40 mg grps Take 0.5 Packets by mouth DAILY (6 AM). fluticasone (FLONASE) 50 mcg/actuation nasal spray Use 1 Casanova in each nostril once daily. loratadine 10 mg dissolvable tablet Take 10 mg by mouth once daily. OLANZapine orally disintegrating (ZYPREXA ZYDIS) 5 mg disintegrating tablet Take 5 mg by mouth daily at bedtime. Nutritional Supplements (ENSURE PUDDING) pudg Take 113 g by mouth twice daily. cholecalciferol (VITAMIN D) 1,000 unit tab tablet Take 1 tablet by mouth once daily. No current facility-administered medications on file prior to visit. Social History Social History Tobacco Use Smoking status: Never Smokeless tobacco: Never Substance Use Topics Alcohol use: Never Drug use: Never Review of Symptoms REVIEW OF SYSTEMS SEE HPI EXAM: BP 120/70 Pulse 92 Resp 16 Wt 54.9 kg (121 lb) BMI 17.36 kg/m General Appearance: Well appearing, alert, in no acute distress, well-hydrated, well nourished.. Abdomen: Positive findings: tenderness mild Periumbilical. Health Maintenance List HEPATITIS B(1 of 3 - 3-dose series) Never done COVID-19 VACCINE(1) Never done HEPATITIS C SCREENING Never done HIV SCREENING Never done DTAP,TDAP,TD(1 - Tdap) Never done DIABETES SCREEN Never done COLORECTAL CANCER SCREENING Never done DEPRESSION ASSESSMENT Never done INFLUENZA(1) due on 01/18/2023 LIPID SCREEN due on 07/26/2026 HPV VACCINE Aged Out ASSESSMENT/PLAN: 1. GERD without esophagitis - ICD9: 530.81, ICD10: K21.9 (primary diagnosis) - Discussed lifestyle modifications including losing weight, limiting caffeine, no meals three hours before sleep, and head of bed elevation - Continue treatment with Protonix every day, needs PA 2. Elevated LFTs - ICD9: 790.6, ICD10: R79.89 - COMP METABOLIC PANEL Niraj Andino APRN.UTILITY ENGINEER documented in this encounterAultman Hospital08-06-2023 Hospital Discharge instructions Additional Instructions His blood work showed high liver enzymes. His CT scan looked normal and there is no evidence of gallbladder infection. 1 possible side effect of olanzapine as elevated liver enzymes but there are many other possible causes so he needs to see his primary care doctor this week for reevaluation.[facility] Work Phone: 1(598) 317-777808-06-2023 History of Present illness Narrative* Kailee Pettit PA-C - 12/23/2022 1:19 PM EDT Patient presents to sports care triage with a chief complaint of abdominal pain. He did not sleep all night because it was hurting him. His caregiver is with him today. Patient has a history of severe autism and schizophrenia. Patient pacing and nonverbal here. Discussed with caregiver I would recommend he be seen in the emergency department for abdominal pain. She will take [facility] to [facility] ED. documented in this encounterCleveland Gtzste18-20-2509 Discharge summary Author Mookie Guo [facility] December 06, 2022 2:33pm Note Date/Time December 06, 2022 1:27 pm [facility] Medical Records Department [address] [place] [address] Emergency Department Summary 12/06/22 MR#: [id number] Acct: [id number] Name: ARVNID DOMÍNGUEZ Rep #:[id number] : 1975 47 From: Mookie Guo MD PCP: Niraj Andino CORPORATE BUYER-C Status:REG ER Location: ED HPI History of Present Illness Chief Complaint: Mental Health Detail of Chief Complaint: Increased agitation Informant: family Onset/Context/Timing Onset: Days Context: Sudden Onset Timing: Intermittent Quality: Patient seen more, stomping feet Location: Not at a couple Current Severity: Gone Maximum Severity: Moderate Worsened by: Unknown Relieved by: Unknown Associated Symptoms Associated Symptoms: Increased urination Narrative Narrative: Patient is a 55-year-old male who lives with his mother who was guardian until her September of this year. Sister is in the process of obtaining guardianship. After mother's he was with her brother. He is no longer able to care forhim since he has significant medical issues. Patient has history of autism and schizophrenia. Patient presently resides with sister who is obtaining guardianship through the court system. She states she will not have guardianship until January 01. She did show me the paperwork. He has gained 14 pounds since living with her. She is concerned because she stomping his feet more and has had increased pacing. He also has been urinatingmore. There is been no documented fever. Per sister he has not had a cough. There isno vomiting or diarrhea. She has not noted blood in his urine. Prior similar symptoms: No Recent Illness/Hospitalization: No PFSH PFSH Medical History (Updated 12/06/22 @ 14:[address] Mookie Guo MD) Autism GERD (gastroesophageal reflux disease) Schizophrenia Home Medications cholecalciferol (vitamin D3) 25 mcg (1,000 unit) capsule 25 mcg PO DAILY 12/06/22 [History Last Taken Unknown] fluticasone propionate 50 mcg/actuation nasal spray,suspension intranasal 12/06/22 [History Last Taken Unknown] loratadine 10 mg chewable tablet (Claritin) 10 mg PO DAILY 12/06/22 [History Last Taken Unknown] olanzapine 5 mg disintegrating tablet 5 mg PO QHS #30 tabs 12/06/22 [Rx Last Taken Unknown] olanzapine 5 mg disintegrating tablet mg 12/06/22 [History Last Taken 12/06/22] omeprazole 40 mg capsule,delayed release 40 mg PO DAILY #30 caps 12/06/22 [Rx Last Taken Unknown] Allergy/AdvReac Type Severity Reaction Status Date / Time No Known Allergies Allergy Verified 12/06/22 13:09 Family History (Updated 12/06/22 @ 13:43 by Germania Brownlee) Mother Lung cancer Heart disease Father Lung cancer Social History (Updated 12/06/22 @ 13:[address] Mookie Guo MD) household members: family Smoking Status: Never smoker ROS ROS ED Review of Systems ROS Unobtainable: due to mental condition, due to mental status and other Details: What is documented in HPI narrative is all that I am able to obtain from the sister. EXAM Physical Exam Const Vital Signs: 12/06/22 13:09 Temperature 97.4 F L Temperature Source Temporal Pulse Rate 95 Respiratory Rate 16 Blood Pressure 130/94 H Blood Pressure Mean 106 Pulse Ox 98 Oxygen Delivery Method Room Air Positive well nourished and well developed; Negative for cachectic, contracturesor unkempt General Appearance ED: well developed and NAD; Negative for unkempt, cachectic, contractures, cyanotic or diaphoretic Nutritional Appearance: Negative for cachectic HEENT Reports moist mucous membranes HEENT Narrative: There is an abrasion noted to bridge of the nose. Ears are normal. Nares patent. Poor dentition. Posterior pharynx remark. Eyes PERRL and EOMs intact bilaterally General Eye ED: Negative for pale conjunctiva or scleral icterus Neck no lymphadenopathy, supple and no JVD Neck Narrative: Trachea is midline. Chest Wall inspection of chest normal and palpation of chest normal Resp normal respiratory effort and clear to auscultation bilaterally Cardio regular rate, regular rhythm, S1 normal heart sound, S2 normal heart sound and no murmurs GI normal to inspection, nondistended, normoactive bowel sounds, non-tender, non-distended and no masses; Negative for hepatosplenomegaly Palpation: soft Extremity normal to inspection General Extremety ED: Negative for edema or tenderness General Extremity: Negative for edema Neuro Neuro Narrative: Patient says yeah to all questions asked. He is playing with small stuffed animals. Psych Psych Narrative: He is essentially nonverbal. Appearance: Negative for unkempt Skin no rashes or lesions noted and skin turgor normal General Skin Exam: Negative for jaundice MDM MDM MDM Narrative Medical decision making narrative: Case management was consulted. Will obtain blood work and urine to assess for metabolic or infectious cause of his increased agitation. History & Record Review Additional record(s) reviewed:: No prior records Lab Data Attestation: I reviewed the patient's lab results. Lab results narrative: Basic metabolic panel is unremarkable. Glucose is slight elevated 150 with an 2and. UA is normal. CBC is unremarkable. Labs: Laboratory Results - last 24 hr 12/06/22 12/06/22 12/06/22 13:42 13:42 13:55 WBC Cancelled Corrected WBC Cancelled RBC Cancelled Hgb Cancelled Hct Cancelled MCV Cancelled MCH Cancelled MCHC Cancelled RDW Std Deviation Cancelled RDW Coeff of Dc Cancelled Plt Count Cancelled MPV Cancelled Immature Gran % (Auto) Cancelled Neut % (Auto) Cancelled Lymph % (Auto) Cancelled [place] % (Auto) Cancelled Eos % (Auto) Cancelled Baso % (Auto) Cancelled Absolute Neuts (auto) Cancelled Absolute Lymphs (auto) Cancelled Total Counted Cancelled Neutrophils % (Manual) Cancelled Band Neutrophils % Cancelled Lymphocytes % (Manual) Cancelled Monocytes % (Manual) Cancelled Eosinophils % (Manual) Cancelled Basophils % (Manual) Cancelled Metamyelocytes % Cancelled Myelocytes % Cancelled Promyelocytes % Cancelled Blast Cells % Cancelled Plasma Cell % (Manual) Cancelled Other Cells % Cancelled Nucleated RBC % Cancelled Nucleated RBCs/100 WBC Cancelled Differential Comment Cancelled Diff Path Review Cancelled Hypersegmented Neuts Cancelled Atypical Lymphocytes Cancelled Reactive Lymphocytes Cancelled Smudge Cells Cancelled Toxic Granulation Cancelled Toxic Vacuolation Cancelled Dohle Bodies Cancelled Sandro Rods Cancelled Platelet Estimate Cancelled Plt Morphology Comment Cancelled RBC Morphology Cancelled Cancelled Polychromasia Cancelled Hypochromasia Cancelled Poikilocytosis Cancelled Basophilic Stippling Cancelled Anisocytosis Cancelled Microcytosis Cancelled Macrocytosis Cancelled Spherocytes Cancelled Sickle Cells Cancelled Target Cells Cancelled Tear Drop Cells Cancelled Ovalocytes Cancelled Stomatocytes Cancelled Zhou-St[place] Bodies Cancelled [place] Cells Cancelled Bite Cells Cancelled Crenated Cell Cancelled Acanthocytes (Spur) Cancelled Rouleaux Cancelled Schistocytes Cancelled Sodium 138 Potassium 4.5 Chloride 106 Carbon Dioxide 27.0 Anion Gap 5 BUN 13 Creatinine 0.87 Estim Creat Clear Calc 79.84 Est GFR (MDRD) Af Amer 121 Est GFR (MDRD) Non-Af 100 BUN/Creatinine Ratio 15.0 Glucose 115 H Calcium 9.3 Urine Color Yellow Urine Clarity Clear Urine pH 7.0 Ur Specific Castell 1.010 Urine Protein Negative Urine Glucose (UA) Normal Urine Ketones Negative Urine Occult Blood Negative Urine Nitrite Negative Urine Bilirubin Negative Urine Urobilinogen Normal Ur Leukocyte Esterase Negative Urine RBC 0 SEEN Urine WBC 0 SEEN Ur Squamous Epith Cells 0 SEEN Urine Bacteria 0 SEEN Urine Mucus 0 SEEN 12/06/22 14:05 WBC 6.7 Corrected WBC RBC 4.83 Hgb 13.6 Hct 43.6 MCV 90.3 MCH 28.2 MCHC 31.2 L RDW Std Deviation 45.0 H RDW Coeff of Dc 13.6 Plt Count 188 MPV 11.4 Immature Gran % (Auto) 0.100 Neut % (Auto) 66.5 Lymph % (Auto) 23.7 [place] % (Auto) 7.8 Eos % (Auto) 1.5 Baso % (Auto) 0.4 Absolute Neuts (auto) 4.4 Absolute Lymphs (auto) 1.58 Total Counted Neutrophils % (Manual) Band Neutrophils % Lymphocytes % (Manual) Monocytes % (Manual) Eosinophils % (Manual) Basophils % (Manual) Metamyelocytes % Myelocytes % Promyelocytes % Blast Cells % Plasma Cell % (Manual) Other Cells % Nucleated RBC % 0 Nucleated RBCs/100 WBC Differential Comment Diff Path Review Hypersegmented Neuts Atypical Lymphocytes Reactive Lymphocytes Smudge Cells Toxic Granulation Toxic Vacuolation Dohle Bodies Sandro Rods Platelet Estimate Plt Morphology Comment RBC Morphology Polychromasia Hypochromasia Poikilocytosis Basophilic Stippling Anisocytosis Microcytosis Macrocytosis Spherocytes Sickle Cells Target Cells Tear Drop Cells Ovalocytes Stomatocytes Zhou-[place] Bodies [place] Cells Bite Cells Crenated Cell Acanthocytes (Spur) Rouleaux Schistocytes Sodium Potassium Chloride Carbon Dioxide Anion Gap BUN Creatinine Estim Creat Clear Calc Est GFR (MDRD) Af Amer Est GFR (MDRD) Non-Af BUN/Creatinine Ratio Glucose Calcium Urine Color Urine Clarity Urine pH Ur Specific Castell Urine Protein Urine Glucose (UA) Urine Ketones Urine Occult Blood Urine Nitrite Urine Bilirubin Urine Urobilinogen Ur Leukocyte Esterase Urine RBC Urine WBC Ur Squamous Epith Cells Urine Bacteria Urine Mucus Management Discussion w/another healthcare provider: rehabilitation worker/Case management (Case management was informed there is no medical reason for admission. Sister was given information on resources. His prescriptions were refilled.) Discharge Plan Triage Chief Complaint: Mental Health ED Provider: Mookie Guo Dx/Rx/DC Orders Clinical Impression: Change in behavior, Prescription refill, Autism, Schizophrenia Instructions: ED Symptoms With Uncertain Cause Prescriptions: New olanzapine 5 mg tablet,disintegrating 5 mg PO QHS Qty: 30 1RF omeprazole 40 mg capsule,delayed release(DR/EC) 40 mg PO DAILY Qty: 30 1RF No Action fluticasone propionate 50 mcg/actuation spray,suspension INTRANASAL Patient Comments: USE 1 (ONE) SPRAY IN EACH NOSTRIL DAILY DIRECTED olanzapine 5 mg tablet,disintegrating Patient Comments: Take 1 tablet (5 mg) by mouth once every day. cholecalciferol (vitamin D3) 25 mcg (1,000 unit) capsule 25 mcg PO DAILY Claritin 10 mg tablet,chewable 10 mg PO DAILY Primary Care Provider: Niraj Andino Referrals: Counseling,Center [Group of Physicians] - 1-2 Weeks NOT,DEFINED [Non-Staff] - Disposition Disposition: Home, Self Care What to do if you have Problems For any increased pain, shortness of breath, bleeding, nausea or vomiting, chestpain, or any unexpected problems, contact your Primary Care Provider. Call [facility] ([phone]) or report to the closest Emergency Room. Call 911 if necessary. 12/06/22 1433 <Electronically signed by Mookie Guo MD> Cosigner Signature (if applicable): CC: CORPORATE BUYERPatricia Andino ~ Signed [facility] Work Phone: 1(255) 213-207607-20-2023 History of Present illness Narrative* Niraj Andino, FLOOR COVERING CONTRACTOR.UTILITY ENGINEER - 12/06/2022 11:16 AM EDT Chief Complaint Patient presents with: Follow Up HPI Arvind Domínguez is a 47 year old male who presents here today for Above Complaints.. Patient presents with his sister for worsening schizophrenia. Sister reports patient is having moreoutbursts, cussing more and is concerned as he makes comments about harming someone or someone harming him but can not get a clear depiction of what he is saying as patient is also autistic and selectively verbal. Sister reports she is trying to get him into the counseling center however because she does not have guardianship she has been unable to get this scheduled. Sister states next court date is 01/01 and has home visitation set for 12/12. Past medical history, appointments, medications, allergies reviewed. Previous Medical History PAST MEDICAL HISTORY Diagnosis Date Autism GERD (gastroesophageal reflux disease) Mental disability Schizophrenia (HCC) Underweight due to inadequate caloric intake Vitamin D deficiency Previous Surgical History No past surgical history on file. Family History No family history on file. Patient Allergies ALLERGIES No Known Allergies Current Medications Current Outpatient Medications on File Prior to Visit Medication Sig pantoprazole (PROTONIX) 40 mg grps Take 0.5 Packets by mouth DAILY (6 AM). fluticasone (FLONASE) 50 mcg/actuation nasal spray Use 1 Casanova in each nostril once daily. loratadine 10 mg dissolvable tablet Take 10 mg by mouth once daily. OLANZapine orally disintegrating (ZYPREXA ZYDIS) 5 mg disintegrating tablet Take 5 mg by mouth daily at bedtime. Nutritional Supplements (ENSURE PUDDING) pudg Take 113 g by mouth twice daily. cholecalciferol (VITAMIN D) 1,000 unit tab tablet Take 1 tablet by mouth once daily. No current facility-administered medications on file prior to visit. Social History Social History Tobacco Use Smoking status: Never Smokeless tobacco: Never Substance Use Topics Alcohol use: Never Drug use: Never Review of Symptoms REVIEW OF SYSTEMS SEE HPI EXAM: BP 112/78 Pulse 90 Resp 16 Wt 52.6 kg (116 lb) BMI 16.64 kg/m General Appearance: Well appearing, alert, in no acute distress, well-hydrated, well nourished.. Health Maintenance List HEPATITIS B(1 of 3 - 3-dose series) Never done COVID-19 VACCINE(1) Never done HEPATITIS C SCREENING Never done HIV SCREENING Never done DTAP,TDAP,TD(1 - Tdap) Never done DIABETES SCREEN Never done COLORECTAL CANCER SCREENING Never done DEPRESSION ASSESSMENT Never done INFLUENZA(1) due on 01/18/2023 LIPID SCREEN due on 07/26/2026 HPV VACCINE Aged Out ASSESSMENT/PLAN: 1. Schizophrenia, unspecified type (HCC) - ICD9: 295.90, ICD10: F20.9 -Instructed sister to take patient to ER for further psychiatric evaluation due to increased hallucinations and behaviors. Niraj Andino APRN.UTILITY ENGINEER [facility] History of Present illness Narrative* Felicita Salgado MSW - 11/26/2022 4:36 PM EDT Patient sister asked this Sw if Sw has heard of landlords requesting photo id of all adults in the home when renting. Sister notes that new landlord is asking for photo id for patient. Sister concerned about taking patient to [facility] for photo id. Sw notes that she was not aware of landlords asking forphoto id for tenants. Sister notes that she will speak with [facility] to see if she would be able to bring patient in for photo id. Chiki also notes that she is still waiting to hear back from Judge Bautista in regards to guardianship hearing date. documented in this [facility]06-[facility]23 Miscellaneous Notes* Telephone Encounter - Nina Velez RN - 11/09/2022 3:21 PM EDT Niraj Andino is okay with Lorraine's recommendations. Sister notified. * Telephone Encounter - Nina Velez RN - 11/07/2022 11:15 AM EDT Called and left a detailed voicemail notifying patient of providers message. Hospital phone number was left in case patient had any questions. Nina Velez RN * Telephone Encounter - Lorraine Dong PA-C - 11/07/2022 11:03 AM EDT Let patient family know that PCP should be back in office tomorrow and will review. In meantime could use the benadryl but this may not be ideal for exterminator option. I will defer to PCP. * Telephone Encounter - Nina Velez RN - 11/02/2022 4:36 PM EDT Pts sister/guardian called and is notified of providers message and instructions. She voices understanding. She has been giving her brother Melatonin 10 mg gummies at bedtime but he has episodes where he doesn't sleep. She is wondering about using Benadryl liquid instead. She also was asking about providers opinion on [facility] versus [facility] on providing care for Schizophrenics. Please call and advise. Nina Velez RN * Telephone Encounter - Niraj Andino APRN.CNP - 11/02/2022 2:20 PM EDT Please let patient's sister know that gummy vitamin d is fine. * Telephone Encounter - Nina Velez RN - 11/02/2022 12:38 PM EDT Pt's sister Chiki Gill calling for pt. States she is patient's legal guardian. Paperwork in process.Pt seen yesterday by Niraj and prescriptions ordered. Pt is unable to swallow pills so pharmacist suggested to pt's sister to call in and get the medications changed to powder and liquid. Sister has been giving patient gummies and is wondering if the Vitamin D can be gummies instead of liquid. She states the pharmacist mentioned that Pantoprozole can be ordered as powder packets. Pt has been giving her brother Melatonin 10 mg gummies at bedtime but he has episodes where he doesn't sleep. Sheis wondering about using Benadryl liquid instead.Please call and advise. Patient has been identified with sister by name and date of : Yes, Provider Niraj Andino Date 11/02/22 Time 12:57 PM Pt's sister/guardian phones for refill(s): Requested Prescriptions Pending Prescriptions Disp Refills cholecalciferol, vitamin D3, 12.5 mcg/5 mL (500 unit/5 mL) liqd Sig: Take 1,000 Units by mouth once daily. pantoprazole (PROTONIX) 40 mg grps Sig: Take 0.5 Packets by mouth DAILY (6 AM). Date of last office visit in primary care: 11/01/22 Future visit 05/15/23 Last 2 Encounter Wt Readings: Date: Wt: 11/01/2022 49.9 kg (110 lb) Previous labs/tests for medication: Please advise. Thank you. Nina Velez RN documented in this encounterA[facility]06-23-[facility]23 Miscellaneous Notes* Telephone Encounter - Patricia Chicas RN - 11/09/2022 2:54 PM EDT Spoke with provider (Niraj) and phoned sister (Chiki) back recommending an Emergency appeal based patient's potential needs. Chiki verbalizes understanding. Patricia Chicas RN * Telephone Encounter - Patricia Chicas RN - 11/09/2022 2:43 PM EDT Chiki (sister) calls to ask if provider feels patient is stable enough to wait the 4- [address] to appoint her as guardian or does his medical needs put him at a need to file an emergency appeal with the courts. See TE 11/05/2022 as well. Chiki requesting a call back at [phone] today. Please review and advise, Patricia Chicas RN documented in this encounterA[facility]06-16-2023 Miscellaneous Notes* Telephone Encounter - DUKE Jasso - 11/02/2022 9:00 AM EDT Behavioral Health Social Work Progress Note Patient identified for [facility] from: PCP Reason for referral: Resources Behavioral Health Resources: Psychiatry med management, Psychology - talk therapy [facility] encounter type: Telephone Encounter Attempts to Outreach: 1 attempt Referral made: Psychiatry - Internal, Psychiatry - External, Psychology - Internal, Psychology - External Psychiatry-Internal referral type: Medication Management Psychology-Internal referral type: Therapy Psychology-External referral type: Therapy Psychiatry-External referral type: Medication Management Reason for external referral: Wait times at [facility] too long, Patient choice Final Disposition: Resources given Patient Discharged?: Yes Patient reported that caregiver was able to meet their needs today?: N/A therapist spoke with patient's sister, Chiki Gill, who is in process of obtaining guardianship for patient. Patient is mostly non-verbal. She will call HC's near her home, was provided contact information. She will contact this therapist as needed. DUKE Jasso-S November 02, 2022 documented in this encounterA[facility]06-15-2023 History of Present illness Narrative* Niraj Andino APRN.UTILITY ENGINEER - 11/01/2022 4:27 PM EDT Chief Complaint No chief complaint on file. HPI Arvind Domínguez is a 47 year old male who presents here today for Above Complaints.. Patient [facility] to [facility] care. Patient has a medical history including mental disability, schizophrenia, GERD, vitamin D deficiency. Patient is minimally verbal and his half sister is with him but has had minimal contact with him due to his mother sheltering him. Patient's mother in september and sister took custody in october 06. Patient had been staying with his brother who is unable to take care of him. Sister concerned with patient's skin picking. Past medical history, appointments, medications, allergies reviewed. Previous Medical History PAST MEDICAL HISTORY Diagnosis Date GERD (gastroesophageal reflux disease) Mental disability Schizophrenia (HCC) Vitamin D deficiency Previous Surgical History No past surgical history on file. Family History No family history on file. Patient Allergies ALLERGIES Not on File Current Medications Current Outpatient Medications on File Prior to Visit Medication Sig cholecalciferol, vitamin D3, (VITAMIN D3 ORAL) Take 1,000 Units by mouth. fluticasone (FLONASE) 50 mcg/actuation nasal spray Use 1 Casanova in each nostril once daily. loratadine 10 mg dissolvable tablet Take 10 mg by mouth once daily. OLANZapine orally disintegrating (ZYPREXA ZYDIS) 5 mg disintegrating tablet Take 5 mg by mouth daily at bedtime. No current facility-administered medications on file prior to visit. Social History Social History Tobacco Use Smoking status: Never Smokeless tobacco: Never Review of Symptoms REVIEW OF SYSTEMS SEE HPI EXAM: BP 120/62 Pulse 72 Resp 18 Ht 177.8 cm (5' 10) Wt 49.9 kg (110 lb) SpO2 98% BMI 15.78 kg/m General Appearance: Well appearing, alert, in no acute distress, well-hydrated, well nourished.. Skin: Positives: Rash: dry patchy to this face and bilateral arms. Multiple scabbed areas within the dry patches. Neck: Supple, no adenopathy; thyroid symmetric, normal size, no bruits. Lungs: Lungs clear to auscultation. No wheezing, rhonchi, rales.. Heart: RRR without murmur, gallop, or rubs. No ectopy. Extremities: No deformities, edema, skin discoloration, clubbing or cyanosis. Good capillary refill. . Peripheral Pulses: Normal. Neurologic: Gait normal. Reflexes normal and symmetric. Sensation grossly intact.. Patient pacing frequently throughout exam, answers yes to all questions. Health Maintenance List HEPATITIS B(1 of 3 - 3-dose series) Never done COVID-19 VACCINE(1) Never done HEPATITIS C SCREENING Never done HIV SCREENING Never done DTAP,TDAP,TD(1 - Tdap) Never done DIABETES SCREEN Never done COLORECTAL CANCER SCREENING Never done DEPRESSION ASSESSMENT Never done INFLUENZA(Season Ended) due on 01/18/2023 LIPID SCREEN due on 07/26/2026 ASSESSMENT/PLAN: 1. Schizophrenia, unspecified type (HCC) - ICD9: 295.90, ICD10: F20.9 (primary diagnosis) - CONSULT TO PRIMARY CARE BEHAVIORAL HEALTH ADULT - GIS PROFESSOR [CONSULT TO SOCIAL WORK] 2. Well adult exam [Z00.00 (ICD-10-CM)] - ICD9: V70.0, ICD10: Z00.00 - Counseled on healthy diet and regular exercise - Follow up for annual exam in one year 3. GERD without esophagitis - ICD9: 530.81, ICD10: K21.9 - Check CBC, CMP - Begin treatment with Prilosec 20 mg QD - PANTOPRAZOLE 20 MG TABLET,DELAYED RELEASE 4. Vitamin D deficiency - ICD9: 268.9, ICD10: E55.9 - CHOLECALCIFEROL (VITAMIN D3) 25 MCG (1,000 UNIT) TABLET 5. Medication management - ICD9: V58.69, ICD10: Z79.899 - CBC + DIFF - COMP METABOLIC PANEL 6. Screening for diabetes mellitus - ICD9: V77.1, ICD10: Z13.1 - HGB A1C 7. Encounter for lipid screening for cardiovascular disease - ICD9: V77.91, V81.2, ICD10: Z13.220, Z13.6 - LIPID PANEL, NONFASTING Niraj Andino APRN.UTILITY ENGINEER documented in this encounterA[facility]06-05-2023 History of Present illness Narrative* Michelle Neely MD - 10/22/2022 11:00 AM EDT Subjective Patient ID: Arvind Domínguez is a 47 y.o. male who presents for Follow-up (Probate paperwork, ). HPI Patient here for follow-up. Accompanied by half-sister Chiki, and Indigo from the [facility]. Patient's mother few weeks ago. Patient needs a statement for guardianship to be taken care of by family and [facility]. schizophrenic disorder patient will require close follow-up. Continue meds as are. Allergic rhinitis stable on therapy Vitamin D deficiency on supplementation GERD and malnutrition. Patient has lost 10 pounds since last visit. Strict attention to nutrition discussed. Review of Systems All other systems reviewed and are negative. Objective BP 116/76 Pulse 64 Wt 51 kg (112 lb 6.4 oz) SpO2 98% BMI 15.68 kg/m Lab Results Component Value Date WBC 4.5 07/26/2021 HGB 14.6 07/26/2021 HCT 46.5 07/26/2021 PLT 182 07/26/2021 CHOL 198 07/26/2021 TRIG 76 07/26/2021 HDL 57.0 07/26/2021 ALT 22 07/26/2021 AST 19 07/26/2021 NA 136 07/26/2021 K 3.9 07/26/2021 CL 102 07/26/2021 CREATININE 0.80 07/26/2021 BUN 17 07/26/2021 CO2 27 07/26/2021 TSH 0.42 (L) 07/26/2021 HGBA1C 5.4 07/26/2021 Physical Exam Vitals reviewed. Constitutional: Appearance: Normal appearance. He is normal weight. HENT: Head: Normocephalic and atraumatic. Mouth/Throat: Pharynx: No posterior oropharyngeal erythema. Eyes: General: No scleral icterus. Conjunctiva/sclera: Conjunctivae normal. Pupils: Pupils are equal, round, and reactive to light. Cardiovascular: Rate and Rhythm: Normal rate and regular rhythm. Heart sounds: Normal heart sounds. Pulmonary: Effort: No respiratory distress. Breath sounds: No wheezing. Abdominal: General: Abdomen is flat. Bowel sounds are normal. There is no distension. Palpations: Abdomen is soft. There is no mass. Tenderness: There is no abdominal tenderness. There is no rebound. Musculoskeletal: General: Normal range of motion. Cervical back: Normal range of motion and neck supple. Skin: General: Skin is warm and dry. Neurological: General: No focal deficit present. Mental Status: He is alert and oriented to person, place, and time. Mental status is at baseline. Psychiatric: Mood and Affect: Mood normal. Behavior: Behavior normal. Thought Content: Thought content normal. Judgment: Judgment normal. Problem List Items Addressed This Visit Digestive GERD (gastroesophageal reflux disease) Endocrine/Metabolic Vitamin D deficiency Weight loss, abnormal Other Allergic rhinitis Schizophrenic disorder (CMS/HCC) - Primary Other Visit Diagnoses Body mass index (BMI) 19.9 or less, adult Assessment/Plan Patient here for follow-up. Accompanied by half-sister Chiki, and Indigo from the [facility]. Patient's mother few weeks ago. Patient needs a statement for guardianship to be taken care of by family in [facility]. schizophrenic disorder patient will require close follow-up. Continue meds as are. Allergic rhinitis stable on therapy Vitamin D deficiency on supplementation GERD and malnutrition. Patient has lost 10 pounds since last visit. Strict attention to nutrition discussed. Yearly labs were not done Follow-up with new PCP documented in this [facility] Work Phone: 1(602) 978-735403-06-2023 Evaluation + Plan note* Assessment & Plan Note - Michelle Neely MD - 07/23/2022 10:08 AM ESTAssociated Problem(s): Allergic rhinitis Stable on meds [facility] Work Phone: 1([phone]) 709-826003-06-2023 Miscellaneous Notes* Assessment & Plan Note - Michelle Neely MD - 07/23/2022 10:08 AM ESTAssociated Problem(s): Allergic rhinitis Stable on meds * Assessment & Plan Note - Michelle Neely MD - 07/23/2022 10:00 AM EST Associated Problem(s): Schizophrenic disorder (CMS/HCC) Stable on med * Assessment & Plan Note - Michelle Neely MD - 07/23/2022 9:59 AM EST Associated Problem(s): Vitamin D deficiency Stable on supplement * Assessment & Plan Note - Michelle Neely MD - 07/23/2022 9:58 AM EST Associated Problem(s): Malnutrition (CMS/HCC) Stable on diet * Assessment & Plan Note - Michelle Neely MD - 07/23/2022 9:58 AM EST Associated Problem(s): GERD (gastroesophageal reflux disease) Stable on diet documented in this [facility] Work Phone: [phone]) 127-873903-06-2023 Evaluation + Plan note* Assessment & Plan Note - Michelle Neely MD - 07/23/2022 10:00 AM ESTAssociated Problem(s): Schizophrenic disorder (CMS/HCC) Stable on med [facility] Work Phone: [phone]) 412-591103-06-2023 Evaluation + Plan note* Assessment & Plan Note - Michelle Neely MD - 07/23/2022 9:59 AM ESTAssociated Problem(s): Vitamin D deficiency Stable on supplement [facility] Work Phone: [phone]) 583-694003-06-2023 Evaluation + Plan note* Assessment & Plan Note - Michelle Neely MD - 07/23/2022 9:58 AM ESTAssociated Problem(s): Malnutrition (CMS/HCC) Stable on diet [facility] Work Phone: [phone]) 424-136503-06-2023 Evaluation + Plan note* Assessment & Plan Note - Michelle Neely MD - 07/23/2022 9:58 AM ESTAssociated Problem(s): GERD (gastroesophageal reflux disease) Stable on diet [facility] Work Phone: [phone] 128-883303-06-2023 History of Present illness Narrative* Michelle Neely MD - 07/23/2022 8:45 AM EST Subjective Patient ID: Arvind Domínguez is a 47 y.o. male who presents for Follow-up (3 mth medical management ). HPI mom present H&P eating better / drinking shakes GERD stable occasional constipation schizophrenia stable on rx no side effects refuses to see psych allergic rhinitis stable mental retardation Review of Systems Constitutional: Negative. HENT: Positive for postnasal drip. Eyes: Negative. Respiratory: Negative. Cardiovascular: Negative. Gastrointestinal: Negative. Endocrine: Negative. Genitourinary: Negative. Musculoskeletal: Negative. Skin: Negative. Allergic/Immunologic: Negative. Neurological: Negative. Hematological: Negative. Psychiatric/Behavioral: Positive for agitation and behavioral problems. The patient is nervous/anxious and is hyperactive. Objective Physical Exam Constitutional: General: He is not in acute distress. Appearance: He is well-developed. He is not diaphoretic. HENT: Head: Normocephalic and atraumatic. Nose: Nose normal. Mouth/Throat: Pharynx: Oropharynx is clear. Eyes: General: No scleral icterus. Conjunctiva/sclera: Conjunctivae normal. Pupils: Pupils are equal, round, and reactive to light. Neck: Thyroid: No thyromegaly. Vascular: No JVD. Cardiovascular: Rate and Rhythm: Normal rate and regular rhythm. Heart sounds: Normal heart sounds. No murmur heard. No friction rub. No gallop. Pulmonary: Effort: Pulmonary effort is normal. No respiratory distress. Breath sounds: Normal breath sounds. No wheezing or rales. Chest: Chest wall: No tenderness. Abdominal: General: Abdomen is flat. Bowel sounds are normal. There is no distension. Palpations: Abdomen is soft. There is no mass. Tenderness: There is no abdominal tenderness. There is no rebound. Musculoskeletal: General: Normal range of motion. Cervical back: Normal range of motion and neck supple. Lymphadenopathy: Cervical: No cervical adenopathy. Skin: General: Skin is warm and dry. Neurological: Mental Status: He is alert and oriented to person, place, and time. Mental status is at baseline. Deep Tendon Reflexes: Reflexes normal. Psychiatric: Attention and Perception: He is inattentive. Mood and Affect: Mood is anxious. Speech: He is noncommunicative. Behavior: Behavior is agitated. Cognition and Memory: Cognition is impaired. Judgment: Judgment is impulsive. Assessment/Plan Problem List Items Addressed This Visit Digestive GERD (gastroesophageal reflux disease) Endocrine/Metabolic Malnutrition (CMS/HCC) Relevant Orders CBC and Differential, Stem Cell/Drainage Vitamin D deficiency Other Allergic rhinitis Relevant Medications fluticasone (Flonase) 50 mcg/actuation nasal spray loratadine (Claritin Reditabs) 10 mg disintegrating tablet Health care maintenance - Primary Relevant Orders CBC and Differential, Stem Cell/Drainage TSH with reflex to Free T4 if abnormal Lipid Panel Comprehensive Metabolic Panel Schizophrenic disorder (CMS/HCC) Relevant Medications OLANZapine zydis (ZyPREXA) 5 mg disintegrating tablet [facility] Work [facility]: Chief complaint+Reason for visit Narrative* Chief Complaint MENTAL EVALUATION [facility] Work Phone: Chief complaint+Reason for visit Narrative* Chief Complaint MENTAL EVALUATION ABD PAIN [facility] Work Phone: Chief complaint+Reason for visit Narrative* Chief Complaint MENTAL EVALUATION ABD PAIN FEVER [facility] Work Phone: Evaluation note* Diagnosis Schizophrenic disorder (CMS/HCC)- Primary Unspecified schizophrenia, unspecified condition Weight loss, abnormal Non-seasonal allergic rhinitis, unspecified trigger Vitamin D deficiency Gastroesophageal reflux disease without esophagitis Esophageal reflux Body mass index (BMI) 19.9 or less, adult documented in this encounter [facility] Work Phone: Evaluation note* Diagnosis Schizophrenia, unspecified type (HCC)- Primary Well adult exam [Z00.00 (ICD-10-CM)] Routine general medical examination at a [facility] GERD without esophagitis Esophageal reflux Vitamin D deficiency Unspecified vitamin D deficiency Medication management Encounter for long-term (current) use of other medications Screening for diabetes mellitus Encounter for lipid screening for cardiovascular disease Screening for lipoid disorders [facility]* Diagnosis GERD without esophagitis- Primary Esophageal reflux documented in this encounter [facility] noteNo assessment information availableWPremier Health [facility] Work Phone: [facility]* Diagnosis Schizophrenia, unspecified type (HCC)- Primary documented in this encounter [facility] note* Diagnosis Abdominal pain, unspecified abdominal location- Primary [facility]* Diagnosis GERD without esophagitis- Primary Esophageal reflux Elevated LFTs Other abnormal blood chemistry documented in this encounter [facility] note* Diagnosis GERD without esophagitis Esophageal reflux [facility]* Diagnosis GERD without esophagitis Esophageal reflux documented in this encounter [facility] note* Diagnosis GERD without esophagitis Esophageal reflux documented in this encounter [facility] note* Diagnosis Moderate protein-calorie malnutrition (HCC)- Primary Malnutrition of moderate degree documented in this encounter [facility] note* Diagnosis Encounter for immunization- Primary Need for other specified prophylactic vaccination against single bacterial disease Chronic insomnia Insomnia, unspecified documented in this encounter [facility] note* Diagnosis Picky eater- Primary Feeding difficulties and mismanagement Impacted cerumen of left ear Impacted cerumen 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 [facility]* Diagnosis Moderate protein-calorie malnutrition (HCC) Malnutrition of moderate degree [facility]* Diagnosis 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 Moderate protein-calorie malnutrition (HCC) Malnutrition of moderate degree Schizophrenia, unspecified type (HCC) GERD without esophagitis Esophageal reflux Paleness Pallor Family history of thyroid disease Family history of other endocrine and metabolic diseases Screening for diabetes mellitus Encounter for lipid screening for cardiovascular disease Screening for lipoid disorders [facility]* Diagnosis Vitamin D deficiency- Primary Unspecified vitamin D deficiency Hypertriglyceridemia Pure hyperglyceridemia Iron deficiency Iron deficiency anemia, unspecified documented in this encounter [facility] note* Diagnosis GERD without esophagitis- Primary Esophageal reflux Medication management Encounter for long-term (current) use of other medications Decreased appetite Anorexia [facility] Diagnosis Iron deficiency- Primary Iron deficiency anemia, unspecified [facility] Diagnosis Cellulitis of skin- Primary Cellulitis and abscess of unspecified site Schizophreniform disorder (HCC) Schizophreniform disorder, unspecified condition 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 Dysuria [facility] Diagnosis Acute otitis media, right- Primary Unspecified otitis media [facility] Acute otitis media, right Unspecified otitis media [facility] Diagnosis Acute otitis media, right- Primary Unspecified otitis media [facility] Diagnosis Agitation- Primary Other and unspecified special symptom or syndrome, not elsewhere classified Anal inflammation Other specified disorder of rectum and anus Schizophrenia, unspecified type (HCC) 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 Bony prominence Other disorders of bone and cartilage [facility] Diagnosis Bony prominence Other disorders of bone and cartilage [facility] Diagnosis Decreased appetite Anorexia [facility] Diagnosis Cough in adult- Primary Sore throat Acute pharyngitis Decreased appetite Anorexia GERD without esophagitis Esophageal reflux Measles, mumps, rubella (MMR) vaccination status unknown Hepatitis vaccination status unknown Unknown varicella vaccination status Svpgtkayxi-leawnjkfo-aqjycmy (DPT) vaccination status unknown [facility] Diagnosis Sore throat- Primary Acute pharyngitis [facility] Diagnosis Encounter for immunization Need for other specified prophylactic vaccination against single bacterial disease [facility] Diagnosis Encounter for immunization Need for other specified prophylactic vaccination against single bacterial disease [facility] Diagnosis Acute otitis externa of left ear, unspecified type- Primary Impacted cerumen of left ear Impacted cerumen Impaired development of adult [facility] Diagnosis Need for vaccination- Primary Need for prophylactic vaccination and inoculation against unspecified single disease [facility] Diagnosis Acute cough- Primary Medication management Encounter for long-term (current) use of other medications Vitamin D deficiency Unspecified vitamin D deficiency Acute cough [facility] Diagnosis Acute cough documented in this [facility]* Diagnosis Seasonal allergies- Primary Allergic rhinitis, cause unspecified [facility]* Diagnosis Bacterial conjunctivitis- Primary Other conjunctivitis documented in this encounter [facility] note* Diagnosis Mild protein-calorie malnutrition (CMS/HCC)- Primary Non-seasonal allergic rhinitis, unspecified trigger Gastroesophageal reflux disease without esophagitis Esophageal reflux Schizophrenic disorder (CMS/HCC) Unspecified schizophrenia, unspecified condition Health care maintenance Vitamin D deficiency Screening for colorectal cancer documented in this encounter [facility] Work Phone: Evaluation note* Diagnosis URI, acute- Primary Acute upper respiratory infections of unspecified site documented in this encounter [facility] note* Diagnosis Schizophreniform disorder (HCC)- Primary Schizophreniform disorder, unspecified condition 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 documented in this encounter [facility] note* Diagnosis Acute cough- Primary Acute cough documented in this encounter [facility] note* Diagnosis Acute cough documented in this encounter [facility] note* Diagnosis Post-viral cough syndrome- Primary Cough documented in this encounter [facility] note* Diagnosis Wellness examination- Primary Vitamin D deficiency Unspecified vitamin D deficiency Medication management Encounter for long-term (current) use of other medications Encounter for lipid screening for cardiovascular disease Screening for lipoid disorders Schizophrenia, unspecified type (HCC) GERD without esophagitis Esophageal reflux 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 Encounter for immunization Need for other specified prophylactic vaccination against single bacterial disease [facility]* Diagnosis Elevated LFTs- Primary Other abnormal blood chemistry Vitamin D deficiency Unspecified vitamin D deficiency Iron deficiency Iron deficiency anemia, unspecified Hyperlipidemia, mixed Mixed hyperlipidemia [facility]* Diagnosis Conductive hearing loss, unspecified laterality- Primary [facility] Diagnosis 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 [facility] Diagnosis Elevated alkaline phosphatase level- Primary Other nonspecific abnormal serum enzyme levels documented in this encounter [facility]* Diagnosis Elevated alkaline phosphatase level- Primary Other nonspecific abnormal serum enzyme levels Elevated LFTs Other abnormal blood chemistry documented in this encounter [facility] note* Diagnosis Asymmetric SNHL (sensorineural hearing loss)- Primary Sensorineural hearing loss, asymmetrical Sensorineural hearing loss (SNHL) of left ear, unspecified hearing status on contralateral side Developmental delay Unspecified delay in development documented in this encounter [facility] note* Diagnosis Hearing loss of left ear, unspecified hearing loss type- Primary [facility] Diagnosis Elevated alkaline phosphatase level Other nonspecific abnormal serum enzyme levels Elevated LFTs Other abnormal blood chemistry documented in this encounter [facility] note* Diagnosis Hearing aid consultation- Primary Seasonal allergies Allergic rhinitis, cause unspecified documented in this encounter [facility] note* Diagnosis Otalgia of left ear- Primary Otalgia, unspecified documented in this encounter [facility] note* Diagnosis Lower abdominal pain- Primary Abdominal pain, other specified site Autism spectrum disorder without accompanying intellectual impairment, requiring support (level 1) ([facility]) documented in this encounter [facility] note* Diagnosis Alternating esotropia- Primary Irregular astigmatism of both eyes Irregular astigmatism Corneal thinning, bilateral Autism ([facility]) Autistic disorder, current or active state [facility] routine follow up / no concerns * mom present H&P * eating better / drinking shakes * GERD stable * occasional constipation * schizophrenia stable on rx no side effects * refuses to see psych * allergic rhinitis stable * mental retardation [facility] Work Phone: History of Present illness Narrative* The patient is being seen for the subsequent annual wellness visit. * Past Medical, Surgical and Family History: reviewed and updated in chart. * Interval History: Patient has not been hospitalized previously. * Medications and Supplements: Review of all medications by a prescribing practitioner or clinical pharmacist (such as prescriptions, OTCs, herbal therapies and supplements) documented in the medical record. * No, the patient is not using opioids. * Patient Self Assessment of Health Status: good. * Tobacco use: Non-User * Alcohol use: Non-User * Illicit drug use: Non-User * Current diet: well balanced diet, does consume adequate fluids and does not consume caffeine. * Exercise Frequency: regularly. * Depression/Suicide Screening: . * During the past 2 weeks, the patient has not felt down, depressed or hopeless. * During the past 2 weeks, the patient has not felt little interest or pleasure in doing things. * Hearing Impairment: none. * Cognitive Impairment: Cognitive impairment was observed. * Bathing: needs assistance. * Dressing: needs assistance. * Walking: performs independently. * Managing Finances: needs assistance. * Shopping: needs assistance. * Managing Medications: needs assistance. * Housework / Basic Home Maintenance: needs assistance. * Falls Risk Screening:. ARVIND has not fallen in the last 6 months. * Home safety risk factors: none. * Advance directives:. Advanced Care Planning discussed and documented advance care plan or surrogatedecision maker documented in the medical record. Patient has no living will. Patient has no healthcare POA. * Patient's End of Life Decisions: End of life decisions were reviewed with the patient. I agree to follow the patient's decisions. * routine follow up / no concerns * labs rev'd * mom present H&P * eating better / drinking shakes * GERD stable * occasional constipation * schizophrenia stable on rx no side effects * refuses to see psych * allergic rhinitis stable * mental retardation [facility] Work Phone: History of Present illness Narrative* routine follow up / no concerns * mom present H&P * eating better / drinking shakes * GERD stable * occasional constipation * schizophrenia stable on rx no side effects * refuses to see psych * allergic rhinitis stable * mental retardation [facility] Work Phone: Hospital Discharge instructions Additional Instructions Try to get a home portable pulse oximeter and closely watch your oxygen levels periodically. If you stay below 90% for more than a minute or so, and/or you are feeling like your breathing is getting worse, return to the emergency department for further evaluation. Currently, CDC recommendations state that you should stay home through day 5 of symptoms, then as long as symptoms are improving, if you need to go to work or somewhere else you may for days 6-10 as long as you are wearing a mask the entire time. If you are feeling better after day 10 you may resume life is normal.[facility] Work Phone: Hospital Discharge instructionsAdditional Instructions Follow-up with your primary care provider soon as possible. Return with new or worsening symptoms. Your laboratory tests and urinalysis were negative today. His aggressive behavior may be more secondary to a psychiatric or behavioral problem.[facility] Work Phone: [facility] ([facility] Diagnostic Procedure Only (Routine) - Closed Specialty Diagnoses / Procedures Referred By Contac t Referred To Contact XR IMAGING Diagnoses Bony prominence Procedures XR SKULL 2V AP/LAT RADIOLOGIC EXAMINATION SKULL 4< VIEWS Niraj Andino APRN.UTILITY ENGINEER [address] [place] [id number] [place] [address] Referral ID Status Reason Start Date Expiration Date V isits Requested Visits Authorized [id number] Closed Auto-Generate d Referral 12/19/2023 01/17/2025 1 1 [facility] for referral (narrative)* Diagnostic Procedure Only (Routine) - Closed Specialty Diagnoses / Procedures Referred By Contac t Referred To Contact XR IMAGING Diagnoses Bony prominence Procedures XR SKULL 2V AP/LAT RADIOLOGIC EXAMINATION SKULL 4< VIEWS Niraj Andino APRN.UTILITY ENGINEER [address] [place] [id number] [place] [address] Referral ID Status Reason Start Date Expiration Date V isits Requested Visits Authorized [id number] Closed Auto-Generate d Referral 12/19/2023 01/17/2025 1 1 [facility] for referral (narrative)* Diagnostic Procedure Only (Routine) - Closed Specialty Diagnoses / Procedures Referred By Contac t Referred To Contact XR IMAGING Diagnoses Decreased appetite Procedures XR ABDOMEN 1V SUPINE RADIOLOGIC EXAM ABDOMEN 1 VIEW Niraj Andino APRN.CNP [address] [place] [phone] [place] [address] Referral ID Status Reason Start Date Expiration Date V isits Requested Visits Authorized [id number] Closed Auto-Generate d Referral 06/25/2023 07/24/2024 1 1 [facility] for referral (narrative)No reason for referral information [facility] Work Phone: Reason for visit Narrative* Diagnostic Procedure Only (Routine) - Closed Specialty Diagnoses / Procedures Referred By Contac t Referred To Contact XR IMAGING Diagnoses Bony prominence Procedures XR SKULL 2V AP/LAT RADIOLOGIC EXAMINATION SKULL 4< VIEWS Niraj Andino APRN.UTILITY ENGINEER [address] [place] [address] [place] [address] Referral ID Status Reason Start Date Expiration Date V isits Requested Visits Authorized [id number] Closed Auto-Generate d Referral 12/19/2023 01/17/2025 1 1 [facility] for visit Narrative* Diagnostic Procedure Only (Routine) - Closed Specialty Diagnoses / Procedures Referred By Contac t Referred To Contact XR IMAGING Diagnoses Decreased appetite Procedures XR ABDOMEN 1V SUPINE RADIOLOGIC EXAM ABDOMEN 1 VIEW Niraj Andino APRN.UTILITY ENGINEER [address] [place] [address] [place] [address] Referral ID Status Reason Start Date Expiration Date V isits Requested Visits Authorized [id number] Closed Auto-Generate d Referral 06/25/2023 07/24/2024 1 1 [facility] for visit Narrative* Diagnostic Procedure Only (Routine) - Closed Specialty Diagnoses / Procedures Referred By Contac t Referred To Contact US IMAGING Diagnoses Elevated alkaline phosphatase level Elevated LFTs Procedures US ABD RIGHT UPPER QUADRANT US ABDOMINAL REAL TIME W/IMAGE LIMITED Niraj Andino APRN.UTILITY ENGINEER [address] [place] [address] Phone: tel: fax: [place] [address] Referral ID Status Reason Start Date Expiration Date V isits Requested Visits Authorized [id number] Closed Auto-Generate d Referral 09/17/2024 10/17/2025 1 1 [facility] Family History No Family History Records Found Mother Name Dates Details Family history of chronic ob structive pulmonary disease(V17.6, Z82.5) Status:Active Family history of cardiac di sorder(V17.49, Z82.49) Status:Active Father Name Dates Details Family history of lung cance r(V16.1, Z80.1) Status:Active Mother Name Dates Details Family history of chronic ob structive pulmonary disease(V17.6, Z82.5) Status:Active Family history of cardiac di sorder(V17.49, Z82.49) Status:Active Father Name Dates Details Family history of lung cance r(V16.1, Z80.1) Status:Active Mother Name Dates Details Family history of chronic ob structive pulmonary disease(V17.6, Z82.5) Status:Active Family history of cardiac di sorder(V17.49, Z82.49) Status:Active Father Name Dates Details Family history of lung cance r(V16.1, Z80.1) Status:Active Unknown Family Member Name Dates Details Family history of chronic ob structive pulmonary disease: Mother(V17.6, Z82.5) Status:Active Family history of cardiac di sorder: Mother(V17.49, Z82.49) Status:Active Family history of lung cance r: Father(V16.1, Z80.1) Status:Active Unknown Family Member Name Dates Details Family history of lung cance r: Father(V16.1, Z80.1) Status:Active Family history of cardiac di sorder: Mother(V17.49, Z82.49) Status:Active Family history of chronic ob structive pulmonary disease: Mother(V17.6, Z82.5) Status:Active Unknown Family Member Name Dates Details Family history of chronic ob structive pulmonary disease: Mother(V17.6, Z82.5) Status:Active Family history of cardiac di sorder: Mother(V17.49, Z82.49) Status:Active Family history of lung cance r: Father(V16.1, Z80.1) Status:Active Unknown Family Member Name Dates Details Family history of lung cance r: Father(V16.1, Z80.1) Status:Active Family history of cardiac di sorder: Mother(V17.49, Z82.49) Status:Active Family history of chronic ob structive pulmonary disease: Mother(V17.6, Z82.5) Status:Active Unknown Family Member Name Dates Details Family history of chronic ob structive pulmonary disease: Mother(V17.6, Z82.5) Status:Active Family history of cardiac di sorder: Mother(V17.49, Z82.49) Status:Active Family history of lung cance r: Father(V16.1, Z80.1) Status:Active Unknown Family Member Name Dates Details Family history of lung cance r: Father(V16.1, Z80.1) Status:Active Family history of cardiac di sorder: Mother(V17.49, Z82.49) Status:Active Family history of chronic ob structive pulmonary disease: Mother(V17.6, Z82.5) Status:Active Unknown Family Member Name Dates Details Family history of lung cance r: Father(V16.1, Z80.1) Status:Active Family history of cardiac di sorder: Mother(V17.49, Z82.49) Status:Active Family history of chronic ob structive pulmonary disease: Mother(V17.6, Z82.5) Status:Active Unknown Family Member Name Dates Details Family history of chronic ob structive pulmonary disease: Mother(V17.6, Z82.5) Status:Active Family history of cardiac di sorder: Mother(V17.49, Z82.49) Status:Active Family history of lung cance r: Father(V16.1, Z80.1) Status:Active Relationship Condition Age at Onset Recorded Date/T joselyn mother Malignant neoplasm of lung Unknown Heart disease Unknown father Malignant neoplasm of lung Unknown Chief Complaint follow upsubsequent medicare physical3 month medical management3 month medical management3 month medical management Summary Purpose Advance Directives No Advanced Directives Records Found Advance Directive Response Recorded Date/ Time Living Will No December 06, 2022 1:40pm Power of Python Architect No December 06 1:40pm Advance Directive Response Recorded Date/ Time Name of Medical Power of Python Architect Chiki December 23, 2022 1:31pm Living Will No December 23, 2022 1:31pm Power of Python Architect Yes December 23 1:31pm Advance Directive Response Recorded Date/ Time Name of Medical Power of Python Architect Chiki December 23, 2022 1:31pm Living Will No January 11 2:00pm Power of Python Architect No [place] 25th, 2 023 2:00pm Advance Directive Response Recorded Date/ Time Living Will No January 11 2:00pm Power of Python Architect No January 11, 2 023 2:00pm Advance Directive Response Recorded Date/ Time Do you have a Healthcare Power of Python Architect? Yes December 09, 2024 3:59pm Reason for Referral Specialty Diagnoses / Procedures Referred By Contac t Referred To Contact [facility] Diagnoses Non-verbal learning disorder Procedures CONSULT TO SPEECH THERAPY OFFICE/OUTPATIENT [facility] 60-74 MINUTES Niraj Andino, IDALIA.UTILITY ENGINEER [address] [place] [address] [facility] [place] [address] [place] [address] Referral ID Status Reason Start Date Expiration Date Visits Requested Visits Authorized [id number] Pending Review Auto-Generat ed Referral 04/19/2023 04/18/2024 1 1 Specialty Diagnoses / Procedures Referred By Contnilsa t Referred To Contact Gastroenterology Diagnoses Decreased appetite GERD without esophagitis Procedures CONSULT TO GASTROENTEROLOGY OFFICE/OUTPATIENT [facility] 60 MINUTES Niraj Andino, FLOOR COVERING CONTRACTOR.UTILITY ENGINEER [address] [place] [address] Referral ID Status Reason Start Date Expiration Date Visits Requested Visits Authorized [id number] Authorized PCP Requested Referral 02/20/2024 02/19/2025 1 1 Health Concerns Infection Onset Date Last Indicated Resolved Time COVID-19 Rule-Out 06/25/2023 06/25/2023 06/25/2023 10:17 PM EST Influenza 06/25/2023 06/25/2023 Infection Onset Date Last Indicated Resolved Time Influenza 06/25/2023 06/25/2023 Chief Complaint and Reason for Visit Chief Complaint NON VERBAL LEARNING DISORDER,AUTISM RX HERE n/v/d Chief Complaint Admit Date cold s/s July 07, 2024 4:36pm Follow up August 26, 2024 3:38 pm 2 M FU October 28, 2024 3:32 pm Reason for Visit Admit Date H. pylori infection August 26, 2024 3:38 pm Loose stools August 26, 2024 3:38 pm Chief Complaint Admit Date Follow up August 26, 2024 3:38 pm 2 M FU October 28, 2024 3:32 pm RESPIRATORY PROFILE November 03, 2024 4:38 pm Reason for Visit Admit Date H. pylori infection August 26, 2024 3:38 pm Loose stools August 26, 2024 3:38 pm Constipation October 28, 2024 3:32 pm H. pylori infection October 28, 2024 3:32 pm Loose stools October 28, 2024 3:32 pm Chief Complaint Admit Date Follow up August 26, 2024 3:38 pm 2 M FU October 28, 2024 3:32 pm RESPIRATORY PROFILE November 03, 2024 4:38 pm GENERAL ILLNESS December 09, 2024 2:17 pm Additional Source Comments (unrecognized sect ion and content) No Status Records FoundNo Status Records FoundNo Status Records FoundNo Status Records FoundNo Status Records FoundNo Status Records FoundNo Status Records FoundNo Status Records FoundNo Status Records Found INFORMATION SOURCE (unrecogn ized section and content) DATE CREATED AUTHOR 07/31/2021 [facility] DATE CREATED AUTHOR AUTHOR'S ORGANIZ ATION 04/24/2022 [facility] DATE CREATED AUTHOR AUTHOR'S ORGANIZ ATION 04/24/2022 [employer] DATE CREATED AUTHOR AUTHOR'S ORGANIZ ATION 10/28/2022 [facility] DATE CREATED AUTHOR AUTHOR'S ORGANIZ ATION 10/28/2022 [facility] DATE CREATED AUTHOR AUTHOR'S ORGANIZ ATION 09/30/2024 [facility] DATE CREATED AUTHOR AUTHOR'S ORGANIZ ATION 12/21/2024 [facility] DATE CREATED AUTHOR AUTHOR'S ORGANIZ ATION 01/24/2025 [facility] DATE CREATED AUTHOR AUTHOR'S ORGANIZ ATION 01/26/2025 [facility] Reason for Visit (unrecogniz ed section and content) Reason Comments Follow-up Probate paperwork, Specialty Diagnoses / Procedures Referred By Rudolph villegas Referred To Contact Diagnoses establish care Procedures establish care Self [facility] Dept Referral ID Status Reason Start Date Expiration Date V isits Requested Visits Authorized [id number] Closed Patient Cleared - Qualified 100% FAS 10/16/2022 01/14/2023 99 99 Reason Comments consult Reason Comments Reason Comments Medication Problem Patient Question Reason Comments Follow Up Reason Comments ER F/U Reason Comments Insurance Authorization Protonix packets Reason Comments Results Reason Onset Date Comments Refill Request 12/28/2022 Reason Comments Fever Reason Onset Date Comments Refill Request 12/31/2022 Refill Request 01/02/2023 Refill Request 01/14/2023 Reason Comments Patient Update Reason Comments Refill Request Reason Comments Cough X 2 weeks Reason Comments Follow Up Reason Onset Date Comments Refill Request 04/24/2023 Reason Comments Patient Question Reason Comments Medication Problem Reason Comments Patient Question regarding Autism sadi ting results Reason Comments Limping and dragging left let Reason Comments Question checking to see if s omething is needed for precaution Reason Comments Follow Up Lump behind right ea r Reason Comments Med Change Request Reason Comments Possible chest or abd pain Reason Comments Erroneous encounter-disregard Reason Comments ER F/U Reason Comments Sore Throat poor appetite X 3 days Reason Comments Orders Reason Comments Imm/Inj Reason Comments Appointment Patient Update Reason Comments Diarrhea X 3 days Fatigue X several months Reason Onset Date Comments Population Health Navigation Outreach 03/24/2024 [facility] PCSA Reason Comments Cough X1 week Reason Comments Eye Problem Left eye Reason Comments Follow-up 3 mth medical manage ment Reason Comments Cough Rhinitis Reason Comments Requesting Rx for a shower chair Reason Comments Cough Reason Comments Physical Reason Comments Results prior authorization Liquid Atorvastatin Reason Comments Hearing Loss Reason Comments Orders Reason Comments Medication Question Appointment Reason Comments New Patient Cc: Pt presents for hearing loss on left side. Reason Comments Cough Allergies Sneezing Reason Comments Ear Pain Reason Comments Chest Pain Reason Comments UTI Caregiver reports pt up last night to the bathroom noting hurting down therePt is unable to give urine specimen. Reason Onset Date Comments Results 01/15/2025 Reason Comments Wandering Eye Decreased Vision Both Eyes Care Teams (unrecognized sec tion and content) Electric Utility Lineworker Relationship Specialty Start Date End Date Michelle Neely MD [address] [place] [address] Physician Offices, [address] [address] PCP - General 05/22/99 Michelle Neely MD [address] [place] [address] Physician Offices, [address] [address] PCP - MSSP ACO Attributed Provider 05/20/21 Electric Utility Lineworker Relationship Specialty Start Date End Date Niraj Andino APRN.UTILITY ENGINEER [address] [place] [address] [phone] PCP - General Family Medicine 11/01/22 Electric Utility Lineworker Relationship Specialty Start Date End Date Niraj Andino APRN.UTILITY ENGINEER [address] [place] [address] [phone] PCP - General Family Medicine 11/01/22 Electric Utility Lineworker Relationship Specialty Start Date End Date Niraj Andino APRN.UTILITY ENGINEER [address] [place] [address] [phone] PCP - General Family Medicine 11/01/22 Electric Utility Lineworker Relationship Specialty Start Date End Date Niraj Andino APRN.UTILITY ENGINEER [address] [place] [address] [phone] PCP - General Family Medicine 11/01/22 Electric Utility Lineworker Relationship Specialty Start Date End Date Niraj Andino APRN.UTILITY ENGINEER [address] [place] [address] [phone] PCP - General Family Medicine 11/01/22 Team Status: Active Member Role Status Dates Dr. Renee Gramajo MD Family Provider Active Niraj Andino NP-C Primary Care Provider Active Team Status: Inactive Member Role Status Dates Dr. Mookie Guo MD Emergency Provider Active Niraj Andino NP-C Primary Care Provider Active Electric Utility Lineworker Relationship Specialty Start Date End Date Niraj Andino APRN.UTILITY ENGINEER [address] [place] [address] [phone] PCP - General Family Medicine 11/01/22 Team Status: Inactive Member Role Status Dates Dr. Mookie Guo MD Attending Provider, Emergency Provi lg Active Niraj Andino CORPORATE BUYER-C Primary Care Provider Active Team Status: Inactive Member Role Status Dates Niraj Andino NP-C Primary Care Provider Active Dr. Jordi Russell , Emergency Provider Active Electric Utility Lineworker Relationship Specialty Start Date End Date Niraj Andino APRN.UTILITY ENGINEER [address] [place] [address] [phone] PCP - General Family Medicine 11/01/22 Electric Utility Lineworker Relationship Specialty Start Date End Date Niraj Andino APRN.UTILITY ENGINEER [address] [place] [phone] PCP - General Family Medicine 11/01/22 Electric Utility Lineworker Relationship Specialty Start Date End Date Niraj Andino APRN.UTILITY ENGINEER [address] [place] [phone] PCP - General Family Medicine 11/01/22 Electric Utility Lineworker Relationship Specialty Start Date End Date Niraj Andino APRN.UTILITY ENGINEER [address] [place] [phone] PCP - General Family Medicine 11/01/22 Electric Utility Lineworker Relationship Specialty Start Date End Date Niraj Andino APRN.UTILITY ENGINEER [address] [place] [address] [phone] PCP - General Family Medicine 11/01/22 Team Status: Inactive Member Role Status Dates Niraj Andino NP-C Primary Care Provider Active Dr. Jordi Russell , Attending Provider, Emergency Provider Active Team Status: Inactive Member Role Status Dates Niraj Andino NP-C Primary Care Provider Active Dr. Kong Maddox MD Emergency Provider Active Electric Utility Lineworker Relationship Specialty Start Date End Date Niraj Andino APRN.UTILITY ENGINEER [address] [place] [address] [phone] PCP - General Family Medicine 11/01/22 Electric Utility Lineworker Relationship Specialty Start Date End Date Niraj Andino APRN.UTILITY ENGINEER [address] [place] [address] [phone] PCP - General Family Medicine 11/01/22 Electric Utility Lineworker Relationship Specialty Start Date End Date Niraj Andino APRN.UTILITY ENGINEER [address] [place] [address] [phone] PCP - General Family Medicine 11/01/22 Electric Utility Lineworker Relationship Specialty Start Date End Date Niraj Andino FLOOR COVERING CONTRACTOR.UTILITY ENGINEER [address] [place] [phone] PCP - General Family Medicine 11/01/22 Electric Utility Lineworker Relationship Specialty Start Date End Date Niraj Andino FLOOR COVERING CONTRACTOR.UTILITY ENGINEER [address] [place] [phone] PCP - General Family Medicine 11/01/22 Electric Utility Lineworker Relationship Specialty Start Date End Date Niraj Andino FLOOR COVERING CONTRACTOR.UTILITY ENGINEER [address] [place] [phone] PCP - General Family Medicine 11/01/22 Electric Utility Lineworker Relationship Specialty Start Date End Date Niraj Andino FLOOR COVERING CONTRACTOR.UTILITY ENGINEER [address] [place] [phone] PCP - General Family Medicine 11/01/22 Electric Utility Lineworker Relationship Specialty Start Date End Date Niraj Andino FLOOR COVERING CONTRACTOR.UTILITY ENGINEER [address] [place] [phone] PCP - General Family Medicine 11/01/22 Electric Utility Lineworker Relationship Specialty Start Date End Date Niraj Andino, FLOOR COVERING CONTRACTOR.UTILITY ENGINEER [address] [place] [phone] PCP - General Family Medicine 11/01/22 Electric Utility Lineworker Relationship Specialty Start Date End Date Niraj Andino APRN.UTILITY ENGINEER [address] [place] [address] [phone] PCP - General Family Medicine 11/01/22 Electric Utility Lineworker Relationship Specialty Start Date End Date Niraj Andino APRN.UTILITY ENGINEER [address] [place] [address] [phone] PCP - General Family Medicine 11/01/22 Team Status: Active Member Role Status Dates Niraj Andino , EB Primary Care Prov ider, Attending Provider, Referring Provider Active Electric Utility Lineworker Relationship Specialty Start Date End Date Niraj Andino APRN.UTILITY ENGINEER [address] [place] [phone] PCP - General Family Medicine 11/01/22 Electric Utility Lineworker Relationship Specialty Start Date End Date Niraj Andino FLOOR COVERING CONTRACTOR.UTILITY ENGINEER [address] [place] [address] [phone] PCP - General Family Medicine 11/01/22 Electric Utility Lineworker Relationship Specialty Start Date End Date Niraj Andino FLOOR COVERING CONTRACTOR.UTILITY ENGINEER [address] [place] [phone] PCP - General Family Medicine 11/01/22 Electric Utility Lineworker Relationship Specialty Start Date End Date Niraj Andino FLOOR COVERING CONTRACTOR.UTILITY ENGINEER [address] [place] [phone] PCP - General Family Medicine 11/01/22 Electric Utility Lineworker Relationship Specialty Start Date End Date Niraj Andino, FLOOR COVERING CONTRACTOR.UTILITY ENGINEER [address] [place] [address] [phone] PCP - General Family Medicine 11/01/22 Electric Utility Lineworker Relationship Specialty Start Date End Date Niraj Andino APRN.UTILITY ENGINEER [address] [place] [address] [phone] PCP - General Family Medicine 11/01/22 Electric Utility Lineworker Relationship Specialty Start Date End Date Niraj Andino APRN.UTILITY ENGINEER [address] [place] [phone] PCP - General Family Medicine 11/01/22 Electric Utility Lineworker Relationship Specialty Start Date End Date Niraj Andino APRN.UTILITY ENGINEER [address] [place] [phone] PCP - General Family Medicine 11/01/22 Electric Utility Lineworker Relationship Specialty Start Date End Date Niraj Andino APRN.UTILITY ENGINEER [address] [place] [address] [phone] PCP - General Family Medicine 11/01/22 Electric Utility Lineworker Relationship Specialty Start Date End Date Niraj Andino, FLOOR COVERING CONTRACTOR.UTILITY ENGINEER [address] [place] [phone] PCP - General Family Medicine 11/01/22 Electric Utility Lineworker Relationship Specialty Start Date End Date Niraj Andino, FLOOR COVERING CONTRACTOR.UTILITY ENGINEER [address] [place] [phone] PCP - General Family Medicine 11/01/22 Electric Utility Lineworker Relationship Specialty Start Date End Date Michelle Neely MD [address] [place] [address] Physician Offices, [address] [address] PCP - General 05/22/99 Michelle Neely MD [address] [facility] Physician Offices, [facility] [address] [place] [address] PCP - MSSP ACO Attributed Provider 05/20/21 Electric Utility Lineworker Relationship Specialty Start Date End Date Niraj Anidno APRN.UTILITY ENGINEER [address] [place] [phone] PCP - General Family Medicine 11/01/22 Electric Utility Lineworker Relationship Specialty Start Date End Date Niraj Andino APRN.UTILITY ENGINEER [address] [place] [address] [phone] PCP - General Family Medicine 11/01/22 Electric Utility Lineworker Relationship Specialty Start Date End Date Niraj Andino APRN.UTILITY ENGINEER [address] [place] [phone] PCP - General Family Medicine 11/01/22 Electric Utility Lineworker Relationship Specialty Start Date End Date Niraj Andino APRN-UTILITY ENGINEER [address] [place] [address] [address] [place] [address] PCP - General Nurse Practitioner - Family 08/27/24 Electric Utility Lineworker Relationship Specialty Start Date End Date Niraj Andino APRN.UTILITY ENGINEER [address] [place] [phone] PCP - General Family Medicine 11/01/22 Electric Utility Lineworker Relationship Specialty Start Date End Date Niraj Andino APRN.UTILITY ENGINEER [address] [place] [phone] PCP - General Family Medicine 11/01/22 Electric Utility Lineworker Relationship Specialty Start Date End Date Niraj Andino APRN.UTILITY ENGINEER [address] [place] [phone] PCP - General Family Medicine 11/01/22 Electric Utility Lineworker Relationship Specialty Start Date End Date Niraj Andino APRN.CNP [address] [place] [address]005 PCP - General Family Medicine 11/01/22 Electric Utility Lineworker Relationship Specialty Start Date End Date Niraj Andino APRN-JOSHUA [address] [phone] PCP - General Nurse Practitioner - Family 08/27/24 Electric Utility Lineworker Relationship Specialty Start Date End Date Niraj Andino APRN-JOSHUA [address] [phone] PCP - General Nurse Practitioner - Family 08/27/24 Electric Utility Lineworker Relationship Specialty Start Date End Date Niraj Andino APRN.CNP [address] [place] [phone] PCP - General Family Medicine 11/01/22 Electric Utility Lineworker Relationship Specialty Start Date End Date Niraj Andino APRN.CNP [address] [place] [phone] PCP - General Family Medicine 11/01/22 Electric Utility Lineworker Relationship Specialty Start Date End Date Niraj Andino APRN.UTILITY ENGINEER [address] [place] [phone] PCP - General Family Medicine 11/01/22 Team Status: Active Member Role Status Dates EB Patel Primary Care Provider Active Team Status: Inactive Member Role Status Dates EB Patel Primary Care Provider Active Start: July 07, 2024 End: July 07, 2024 Ed Physician Provider Attending Provider Active Start: July 07, 2024 End: July 07, 2024 Ed Physician Provider Emergency Provider Active Start: July 07, 2024 End: July 07, 2024 Team Status: Inactive Member Role Status Dates Niraj Andino CORPORATE BUYER-C Primary Care Provider Active Start: August 26, 2024 End: August 26, 2024 Niraj Andino CORPORATE BUYER-C Referring Provider Active Start: August 26, 2024 End: August 26, 2024 ANTHONY Matthews Attending Provider Active Start: August 26, 2024 End: August 26, 2024 Team Status: Inactive Member Role Status Dates Niraj Andino CORPORATE BUYER-C Primary Care Provider Active Start: October 28, 2024 End: October 28, 2024 Niraj Andino CORPORATE BUYER-C Referring Provider Active Start: October 28, 2024 End: October 28, 2024 ANTHONY Matthews Attending Provider Active Start: October 28, 2024 End: October 28, 2024 Team Status: Inactive Member Role Status Dates Niraj Andino CORPORATE BUYER-C Primary Care Provider Active Start: November 03, 2024 End: November 03, 2024 ANTHONY Proctor Attending Provider Active Star t: November 03, 2024 End: November 03, 2024 ANTHONY Proctor Referring Provider Active Star t: November 03, 2024 End: November 03, 2024 Team Status: Active Member Role/Relationship Status Dates Niraj Andino CORPORATE BUYER-C Primary Care Provider Active Team Status: Inactive Member Role/Relationship Status Dates Niraj Andino CORPORATE BUYER-C Primary Care Provider Active Start: August 26, 2024 End: August 26, 2024 Niraj Andino CORPORATE BUYER-C Referring Provider Active Start: August 26, 2024 End: August 26, 2024 ANTHONY Matthews Attending Provider Active Start: August 26, 2024 End: August 26, 2024 Team Status: Inactive Member Role/Relationship Status Dates Niraj Andino CORPORATE BUYER-C Primary Care Provider Active Start: October 28, 2024 End: October 28, 2024 Niraj Andino CORPORATE BUYER-C Referring Provider Active Start: October 28, 2024 End: October 28, 2024 ANTHONY Matthews Attending Provider Active Start: October 28, 2024 End: October 28, 2024 Team Status: Inactive Member Role/Relationship Status Dates EB Patel Primary Care Provider Active Start: November 03, 2024 End: November 03, 2024 ANTHONY Proctor Attending Provider Active Star t: November 03, 2024 End: November 03, 2024 ANTHONY Proctor Referring Provider Active Star t: November 03, 2024 End: November 03, 2024 Team Status: Inactive Member Role/Relationship Status Dates EB Patel Primary Care Provider Active Start: December 09, 2024 End: December 09, 2024 Marcus Delatorre MD Emergency Provider Active Star t: December 09, 2024 End: December 09, 2024 Electric Utility Lineworker Relationship Specialty Start Date End Date Niraj Andino APRN.UTILITY ENGINEER [address] [place] [address] PCP - General Family Medicine 11/01/22 Electric Utility Lineworker Relationship Specialty Start Date End Date Niraj Andino APRN.UTILITY ENGINEER [address] [place] [phone] PCP - General Family Medicine 11/01/22 Source Comments (unrecognize d section and content) In the event this informatio n is protected by the Federal Confidentiality of Alcohol and Drug Abuse Patient Records regulations: The Federal rules restrict any use of the information to criminally investigate or prosecute any alcohol or drug abuse patient.[facility] the event this information is protected by the Federal Confidentiality of Alcohol and Drug Abuse Patient Records regulations: The Federal rules restrict any use of the information to criminally investigate or prosecute any alcohol or drug abuse patient.[facility] the event this information is protected by the Federal Confidentiality of Alcohol and Drug Abuse Patient Records regulations: The Federal rules restrict any use of the information to criminally investigate or prosecute any alcohol or drug abuse patient.[facility] the event this information is protected by the Federal Confidentiality of Alcohol and Drug Abuse Patient Records regulations: The Federal rules restrict any use of the information to criminally investigate or prosecute any alcohol or drug abuse patient.[facility] the event this information is protected by the Federal Confidentiality of Alcohol and Drug Abuse Patient Records regulations: The Federal rules restrict any use of the information to criminally investigate or prosecute any alcohol or drug abuse patient.[facility] the event this information is protected by the Federal Confidentiality of Alcohol and Drug Abuse Patient Records regulations: The Federal rules restrict any use of the information to criminally investigate or prosecute any alcohol or drug abuse patient.[facility] the event this information is protected by the Federal Confidentiality of Alcohol and Drug Abuse Patient Records regulations: The Federal rules restrict any use of the information to criminally investigate or prosecute any alcohol or drug abuse patient.[facility] the event this information is protected by the Federal Confidentiality of Alcohol and Drug Abuse Patient Records regulations: The Federal rules restrict any use of the information to criminally investigate or prosecute any alcohol or drug abuse patient.[facility] the event this information is protected by the Federal Confidentiality of Alcohol and Drug Abuse Patient Records regulations: The Federal rules restrict any use of the information to criminally investigate or prosecute any alcohol or drug abuse patient.[facility] the event this information is protected by the Federal Confidentiality of Alcohol and Drug Abuse Patient Records regulations: The Federal rules restrict any use of the information to criminally investigate or prosecute any alcohol or drug abuse patient.[facility] HospitalIn the event this information is protected by the Federal Confidentiality of Alcohol and Drug Abuse Patient Records regulations: The Federal rules restrict any use of the information to criminally investigate or prosecute any alcohol or drug abuse patient.[facility] HospitalIn the event this information is protected by the Federal Confidentiality of Alcohol and Drug Abuse Patient Records regulations: The Federal rules restrict any use of the information to criminally investigate or prosecute any alcohol or drug abuse patient.[facility] HospitalIn the event this information is protected by the Federal Confidentiality of Alcohol and Drug Abuse Patient Records regulations: The Federal rules restrict any use of the information to criminally investigate or prosecute any alcohol or drug abuse patient.[facility]In the event this information is protected by the Federal Confidentiality of Alcohol and Drug Abuse Patient Records regulations: The Federal rules restrict any use of the information to criminally investigate or prosecute any alcohol or drug abuse patient.[facility]In the event this information is protected by the Federal Confidentiality of Alcohol and Drug Abuse Patient Records regulations: The Federal rules restrict any use of the information to criminally investigate or prosecute any alcohol or drug abuse patient.[facility] HospitalIn the event this information is protected by the Federal Confidentiality of Alcohol and Drug Abuse Patient Records regulations: The Federal rules restrict any use of the information to criminally investigate or prosecute any alcohol or drug abuse patient.[facility] HospitalIn the event this information is protected by the Federal Confidentiality of Alcohol and Drug Abuse Patient Records regulations: The Federal rules restrict any use of the information to criminally investigate or prosecute any alcohol or drug abuse patient.[facility] HospitalIn the event this information is protected by the Federal Confidentiality of Alcohol and Drug Abuse Patient Records regulations: The Federal rules restrict any use of the information to criminally investigate or prosecute any alcohol or drug abuse patient.[facility] HospitalIn the event this information is protected by the Federal Confidentiality of Alcohol and Drug Abuse Patient Records regulations: The Federal rules restrict any use of the information to criminally investigate or prosecute any alcohol or drug abuse patient.[facility] HospitalIn the event this information is protected by the Federal Confidentiality of Alcohol and Drug Abuse Patient Records regulations: The Federal rules restrict any use of the information to criminally investigate or prosecute any alcohol or drug abuse patient.[facility] HospitalIn the event this information is protected by the Federal Confidentiality of Alcohol and Drug Abuse Patient Records regulations: The Federal rules restrict any use of the information to criminally investigate or prosecute any alcohol or drug abuse patient.[facility] HospitalIn the event this information is protected by the Federal Confidentiality of Alcohol and Drug Abuse Patient Records regulations: The Federal rules restrict any use of the information to criminally investigate or prosecute any alcohol or drug abuse patient.[facility] HospitalIn the event this information is protected by the Federal Confidentiality of Alcohol and Drug Abuse Patient Records regulations: The Federal rules restrict any use of the information to criminally investigate or prosecute any alcohol or drug abuse patient.[facility] HospitalIn the event this information is protected by the Federal Confidentiality of Alcohol and Drug Abuse Patient Records regulations: The Federal rules restrict any use of the information to criminally investigate or prosecute any alcohol or drug abuse patient.[facility] HospitalIn the event this information is protected by the Federal Confidentiality of Alcohol and Drug Abuse Patient Records regulations: The Federal rules restrict any use of the information to criminally investigate or prosecute any alcohol or drug abuse patient.[facility] HospitalIn the event this information is protected by the Federal Confidentiality of Alcohol and Drug Abuse Patient Records regulations: The Federal rules restrict any use of the information to criminally investigate or prosecute any alcohol or drug abuse patient.[facility] HospitalIn the event this information is protected by the Federal Confidentiality of Alcohol and Drug Abuse Patient Records regulations: The Federal rules restrict any use of the information to criminally investigate or prosecute any alcohol or drug abuse patient.[facility] HospitalIn the event this information is protected by the Federal Confidentiality of Alcohol and Drug Abuse Patient Records regulations: The Federal rules restrict any use of the information to criminally investigate or prosecute any alcohol or drug abuse patient.[facility] HospitalIn the event this information is protected by the Federal Confidentiality of Alcohol and Drug Abuse Patient Records regulations: The Federal rules restrict any use of the information to criminally investigate or prosecute any alcohol or drug abuse patient.[facility] HospitalIn the event this information is protected by the Federal Confidentiality of Alcohol and Drug Abuse Patient Records regulations: The Federal rules restrict any use of the information to criminally investigate or prosecute any alcohol or drug abuse patient.[facility] HospitalIn the event this information is protected by the Federal Confidentiality of Alcohol and Drug Abuse Patient Records regulations: The Federal rules restrict any use of the information to criminally investigate or prosecute any alcohol or drug abuse patient.[facility] HospitalIn the event this information is protected by the Federal Confidentiality of Alcohol and Drug Abuse Patient Records regulations: The Federal rules restrict any use of the information to criminally investigate or prosecute any alcohol or drug abuse patient.[facility] HospitalIn the event this information is protected by the Federal Confidentiality of Alcohol and Drug Abuse Patient Records regulations: The Federal rules restrict any use of the information to criminally investigate or prosecute any alcohol or drug abuse patient.[facility] HospitalIn the event this information is protected by the Federal Confidentiality of Alcohol and Drug Abuse Patient Records regulations: The Federal rules restrict any use of the information to criminally investigate or prosecute any alcohol or drug abuse patient.[facility] HospitalIn the event this information is protected by the Federal Confidentiality of Alcohol and Drug Abuse Patient Records regulations: The Federal rules restrict any use of the information to criminally investigate or prosecute any alcohol or drug abuse patient.[facility] HospitalIn the event this information is protected by the Federal Confidentiality of Alcohol and Drug Abuse Patient Records regulations: The Federal rules restrict any use of the information to criminally investigate or prosecute any alcohol or drug abuse patient.[facility] HospitalIn the event this information is protected by the Federal Confidentiality of Alcohol and Drug Abuse Patient Records regulations: The Federal rules restrict any use of the information to criminally investigate or prosecute any alcohol or drug abuse patient.[facility] HospitalIn the event this information is protected by the Federal Confidentiality of Alcohol and Drug Abuse Patient Records regulations: The Federal rules restrict any use of the information to criminally investigate or prosecute any alcohol or drug abuse patient.[facility] HospitalIn the event this information is protected by the Federal Confidentiality of Alcohol and Drug Abuse Patient Records regulations: The Federal rules restrict any use of the information to criminally investigate or prosecute any alcohol or drug abuse patient.[facility] HospitalIn the event this information is protected by the Federal Confidentiality of Alcohol and Drug Abuse Patient Records regulations: The Federal rules restrict any use of the information to criminally investigate or prosecute any alcohol or drug abuse patient.[facility] HospitalIn the event this information is protected by the Federal Confidentiality of Alcohol and Drug Abuse Patient Records regulations: The Federal rules restrict any use of the information to criminally investigate or prosecute any alcohol or drug abuse patient.[facility] HospitalIn the event this information is protected by the Federal Confidentiality of Alcohol and Drug Abuse Patient Records regulations: The Federal rules restrict any use of the information to criminally investigate or prosecute any alcohol or drug abuse patient.[facility] HospitalIn the event this information is protected by the Federal Confidentiality of Alcohol and Drug Abuse Patient Records regulations: The Federal rules restrict any use of the information to criminally investigate or prosecute any alcohol or drug abuse patient.[facility] HospitalIn the event this information is protected by the Federal Confidentiality of Alcohol and Drug Abuse Patient Records regulations: The Federal rules restrict any use of the information to criminally investigate or prosecute any alcohol or drug abuse patient.[facility] HospitalIn the event this information is protected by the Federal Confidentiality of Alcohol and Drug Abuse Patient Records regulations: The Federal rules restrict any use of the information to criminally investigate or prosecute any alcohol or drug abuse patient.[facility] HospitalIn the event this information is protected by the Federal Confidentiality of Alcohol and Drug Abuse Patient Records regulations: The Federal rules restrict any use of the information to criminally investigate or prosecute any alcohol or drug abuse patient.[facility] HospitalIn the event this information is protected by the Federal Confidentiality of Alcohol and Drug Abuse Patient Records regulations: The Federal rules restrict any use of the information to criminally investigate or prosecute any alcohol or drug abuse patient.[facility] HospitalIn the event this information is protected by the Federal Confidentiality of Alcohol and Drug Abuse Patient Records regulations: The Federal rules restrict any use of the information to criminally investigate or prosecute any alcohol or drug abuse patient.[facility] HospitalIn the event this information is protected by the Federal Confidentiality of Alcohol and Drug Abuse Patient Records regulations: The Federal rules restrict any use of the information to criminally investigate or prosecute any alcohol or drug abuse patient.[facility] HospitalIn the event this information is protected by the Federal Confidentiality of Alcohol and Drug Abuse Patient Records regulations: The Federal rules restrict any use of the information to criminally investigate or prosecute any alcohol or drug abuse patient.[facility] HospitalIn the event this information is protected by the Federal Confidentiality of Alcohol and Drug Abuse Patient Records regulations: The Federal rules restrict any use of the information to criminally investigate or prosecute any alcohol or drug abuse patient.[facility] HospitalIn the event this information is protected by the Federal Confidentiality of Alcohol and Drug Abuse Patient Records regulations: The Federal rules restrict any use of the information to criminally investigate or prosecute any alcohol or drug abuse patient.[facility] HospitalIn the event this information is protected by the Federal Confidentiality of Alcohol and Drug Abuse Patient Records regulations: The Federal rules restrict any use of the information to criminally investigate or prosecute any alcohol or drug abuse patient.[facility] HospitalIn the event this information is protected by the Federal Confidentiality of Alcohol and Drug Abuse Patient Records regulations: The Federal rules restrict any use of the information to criminally investigate or prosecute any alcohol or drug abuse patient.[facility] HospitalIn the event this information is protected by the Federal Confidentiality of Alcohol and Drug Abuse Patient Records regulations: The Federal rules restrict any use of the information to criminally investigate or prosecute any alcohol or drug abuse patient.[facility] HospitalIn the event this information is protected by the Federal Confidentiality of Alcohol and Drug Abuse Patient Records regulations: The Federal rules restrict any use of the information to criminally investigate or prosecute any alcohol or drug abuse patient.[facility] the event this information is protected by the Federal Confidentiality of Alcohol and Drug Abuse Patient Records regulations: The Federal rules restrict any use of the information to criminally investigate or prosecute any alcohol or drug abuse patient.[facility] HospitalIn the event this information is protected by the Federal Confidentiality of Alcohol and Drug Abuse Patient Records regulations: The Federal rules restrict any use of the information to criminally investigate or prosecute any alcohol or drug abuse patient.[facility] HospitalIn the event this information is protected by the Federal Confidentiality of Alcohol and Drug Abuse Patient Records regulations: The Federal rules restrict any use of the information to criminally investigate or prosecute any alcohol or drug abuse patient.[facility] HospitalIn the event this information is protected by the Federal Confidentiality of Alcohol and Drug Abuse Patient Records regulations: The Federal rules restrict any use of the information to criminally investigate or prosecute any alcohol or drug abuse patient.[facility] HospitalIn the event this information is protected by the Federal Confidentiality of Alcohol and Drug Abuse Patient Records regulations: The Federal rules restrict any use of the information to criminally investigate or prosecute any alcohol or drug abuse patient.[facility] HospitalIn the event this information is protected by the Federal Confidentiality of Alcohol and Drug Abuse Patient Records regulations: The Federal rules restrict any use of the information to criminally investigate or prosecute any alcohol or drug abuse patient.[facility] HospitalIn the event this information is protected by the Federal Confidentiality of Alcohol and Drug Abuse Patient Records regulations: The Federal rules restrict any use of the information to criminally investigate or prosecute any alcohol or drug abuse patient.[facility] HospitalIn the event this information is protected by the Federal Confidentiality of Alcohol and Drug Abuse Patient Records regulations: The Federal rules restrict any use of the information to criminally investigate or prosecute any alcohol or drug abuse patient.[facility] HospitalIn the event this information is protected by the Federal Confidentiality of Alcohol and Drug Abuse Patient Records regulations: The Federal rules restrict any use of the information to criminally investigate or prosecute any alcohol or drug abuse patient.[facility] HospitalIn the event this information is protected by the Federal Confidentiality of Alcohol and Drug Abuse Patient Records regulations: The Federal rules restrict any use of the information to criminally investigate or prosecute any alcohol or drug abuse patient.[facility] HospitalIn the event this information is protected by the Federal Confidentiality of Alcohol and Drug Abuse Patient Records regulations: The Federal rules restrict any use of the information to criminally investigate or prosecute any alcohol or drug abuse patient.[facility] HospitalIn the event this information is protected by the Federal Confidentiality of Alcohol and Drug Abuse Patient Records regulations: The Federal rules restrict any use of the information to criminally investigate or prosecute any alcohol or drug abuse patient.[facility] HospitalIn the event this information is protected by the Federal Confidentiality of Alcohol and Drug Abuse Patient Records regulations: The Federal rules restrict any use of the information to criminally investigate or prosecute any alcohol or drug abuse patient.[facility] HospitalIn the event this information is protected by the Federal Confidentiality of Alcohol and Drug Abuse Patient Records regulations: The Federal rules restrict any use of the information to criminally investigate or prosecute any alcohol or drug abuse patient.[facility] HospitalIn the event this information is protected by the Federal Confidentiality of Alcohol and Drug Abuse Patient Records regulations: The Federal rules restrict any use of the information to criminally investigate or prosecute any alcohol or drug abuse patient.[facility] HospitalIn the event this information is protected by the Federal Confidentiality of Alcohol and Drug Abuse Patient Records regulations: The Federal rules restrict any use of the information to criminally investigate or prosecute any alcohol or drug abuse patient.[facility] HospitalIn the event this information is protected by the Federal Confidentiality of Alcohol and Drug Abuse Patient Records regulations: The Federal rules restrict any use of the information to criminally investigate or prosecute any alcohol or drug abuse patient.[facility] HospitalIn the event this information is protected by the Federal Confidentiality of Alcohol and Drug Abuse Patient Records regulations: The Federal rules restrict any use of the information to criminally investigate or prosecute any alcohol or drug abuse patient.[facility] HospitalIn the event this information is protected by the Federal Confidentiality of Alcohol and Drug Abuse Patient Records regulations: The Federal rules restrict any use of the information to criminally investigate or prosecute any alcohol or drug abuse patient.[facility] HospitalIn the event this information is protected by the Federal Confidentiality of Alcohol and Drug Abuse Patient Records regulations: The Federal rules restrict any use of the information to criminally investigate or prosecute any alcohol or drug abuse patient.[facility] HospitalIn the event this information is protected by the Federal Confidentiality of Alcohol and Drug Abuse Patient Records regulations: The Federal rules restrict any use of the information to criminally investigate or prosecute any alcohol or drug abuse patient.[facility] Goals (unrecognized section and content) Goals may be documented in a n alternate sectionGoals may be documented in an alternate sectionGoals may be documented in an alternate sectionGoals may be documented in an alternate sectionGoals may be documented in an alternate sectionGoals may be documented in an alternate sectionGoals may be documented in an alternate section FOR RECORDS PERTAINING TO PATIENTS WHO ARE OR HAVE BEEN ENROLLED IN A CHEMICAL DEPENDENCY/SUBSTANCEABUSE PROGRAM, SOME INFORMATION MAY BE OMITTED. This clinical summary was aggregated from multiple sources. Caution should be exercised in using it in the provision of clinical care. This summary normalizes information from multiple sources, and as a consequence, information in this document may materially change the coding, format and clinical context of patient data. In addition, data may be omitted in some cases. CLINICAL DECISIONS SHOULD BE BASED ON THE PRIMARY CLINICAL RECORDS. [facility] [employer] [facility] provides no warranty or guarantee of the accuracy or completeness of information in this document.
== END | disposition home or self-care (01) ==
LOC: LAB 13:43 → RAD 13:43
PROVIDERS: PCP Nurse Practitioner Family; Referring Provider Student in an Organized Health Care Education/Training Program; Visit Provider Student in an Organized Health Care Education/Training Program
DX: R10.9 Unspecified abdominal pain (principal)
CPT/HCPCS: 74018

== ENCOUNTER 2025-03-13 05:51 | Emergency (ER) | payer MEDICARE, MEDICAID, SELFPAY ==
[2025-03-13 05:52] VITALS: BP 147/94; PULSE 111; RESP 18; TEMP 36.8; O2SAT 98; BMI 21.9
--- NOTE | 2025-03-13 06:00 | ED.VIS.CHEST ---
HPI <Dr. Abdias Washington DO - Last Filed: 03/13/25 07:11> History of Present Illness Chief Complaint: Chest Pain Informant: family (Sister) Onset/Context/Timing Onset: Today Timing: Continuous Location: Substernal Worsened By: Nothing Relieved By: Nothing Associated Symptoms: Positive for Nausea and Vomiting; Negative for Diaphoresis, Dyspnea, Cough or Fever Narrative Narrative: Patient presents with chest pain that began today. Patient has a history of schizophrenia and autism and is a poor informant. Most of the history comes from the sister. She states that the patient was complaining of pain in his chest today. She stated that he pointed to the substernal area. Sister states the patient did have an episode of nausea and vomiting yesterday. Sister states the patient has had decreased appetite today. Sister denies any fevers or chills. Sister denies any cough or shortness of breath. CVD Risk Factors: Negative for Hypertension, Diabetes, Hypercholesterolemia or Smoking PE Risk Factors: Negative for Recent Travel/Surgery, Recent Immobilization, Prior DVT or PE or Cancer [facility] <Dr. Abdias Washington DO - Last Filed: 03/13/25 07:11> [facility] Medical History Rash Low iron Non-smoker Schizophrenia GERD (gastroesophageal reflux disease) Autism Home Medications ?Medication ?Instructions ?Recorded ?Last Taken ?Type ferrous sulfate 220 mg (44 mg 325.6 mg PO .COMPLEX 06/17/24 12/07/24 History iron)/5 mL oral solution mirtazapine 15 mg disintegrating 15 mg PO DAILY 06/17/24 12/08/24 History tablet esomeprazole magnesium 40 mg 40 mg PO QDAY #30 ea 09/03/24 12/09/24 Rx granules delayed release for susp ascorbic acid (vitamin C) 500 mg 1 g PO DAILY 12/09/24 12/09/24 History chewable tablet (Acerola C) atorvastatin 20 mg/5 mL (4 mg/mL) 20 mg PO DAILY 12/09/24 12/09/24 History oral suspension (AtorvaliQ) calcium citrate 760 mg PO DAILY 12/09/24 12/09/24 History ergocalciferol (vitamin D2) 1,250 1,250 mcg PO QWEEK 12/09/24 12/08/24 History mcg (50,000 unit) capsule levocetirizine 2.5 mg/5 mL oral 2.5 mg PO DAILY 12/09/24 12/09/24 History solution (Xyzal) magnesium 250 mg tablet 250 mg PO DAILY 12/09/24 12/09/24 History mecobalamin (vitamin B12) 1,000 1,000 mcg PO DAILY 12/09/24 12/09/24 History mcg chewable tablet olanzapine 15 mg disintegrating 15 mg PO DAILY 12/09/24 12/08/24 History tablet pedi nutrition,iron,lact-free 5 1 ea PO DAILY 12/09/24 12/09/24 History gram-180 kcal/36 gram oral powder (Else Toddler Colden) Allergy/AdvReac Type Severity Reaction Status Date / Time No Known Allergies Allergy Verified 03/13/25 05:52 Family History Mother Lung cancer Heart disease Father Lung cancer Surgical History History of esophagogastroduodenoscopy (EGD) Social History household members: family Smoking Status: Never smoker ROS <Dr. Abdias Washington, DO - Last Filed: 03/13/25 07:11> ROS ED Constitutional Constitutional ED: Denies chills or fever(s) Cardiovascular Cardiovascular: Reports chest pain Respiratory/Chest Respiratory/Chest: Denies cough or dyspnea Gastrointestinal Gastrointestinal: Reports nausea and vomiting Integumentary Denies rash Allergic/Immunologic Allergic/Immunologic ED: Denies mouth swelling or urticaria EXAM <Dr. Abdias Washington, DO - Last Filed: 03/13/25 07:11> Physical Exam Const Vital Signs: 03/13/25 05:52 03/13/25 05:57 03/13/25 06:30 Temperature 98.2 F Temperature Source Oral Pulse Rate 111 H 105 H Respiratory Rate 18 18 Respiratory Effort Normal Non-Labored Respiratory Pattern Normal Blood Pressure 147/94 H 132/93 H Blood Pressure Mean 111 106 Pulse Ox 98 96 Oxygen Delivery Method Room Air Room Air Positive well nourished and well developed General Appearance ED: well developed and NAD HEENT Reports moist mucous membranes normocephalic and atraumatic Neck supple and no JVD Resp normal respiratory effort and clear to auscultation bilaterally Cardio regular rhythm Rate: tachycardic GI soft to palpation and non-distended Extremity normal to inspection General Extremety ED: Negative for edema or tenderness General Extremity: Negative for edema Neuro CN's II-XII intact bilaterally and no sensory deficits noted Sensorium / Orientation: awake and alert Psych mental status grossly normal <Marcus Delatorre MD - Last Filed: 03/13/25 08:08> Physical Exam Const Vital Signs: 03/13/25 05:52 03/13/25 05:57 03/13/25 06:30 Temperature 98.2 F Temperature Source Oral Pulse Rate 111 H 105 H Respiratory Rate 18 18 Respiratory Effort Normal Non-Labored Respiratory Pattern Normal Blood Pressure 147/94 H 132/93 H Blood Pressure Mean 111 106 Pulse Ox 98 96 Oxygen Delivery Method Room Air Room Air MDM <Dr. Abdias Washington DO - Last Filed: 03/13/25 07:11> [facility] MDM Narrative Medical decision making narrative: Differential diagnosis includes pneumonia, bronchitis, gastroenteritis, pancreatitis, cholecystitis, cholelithiasis, cardiac dysrhythmia, cardiac ischemia, and viral illness. EKG will be obtained to assess for cardiac dysrhythmia and cardiac ischemia. Chest x-ray will be obtained to assess for pneumonia or bronchitis. CBC will be obtained to assess for leukocytosis and anemia. Comprehensive metabolic profile will be obtained to assess for hepatic function, renal function, and electrolyte abnormality. Lipase will be obtained to assess for pancreatitis. History & Record Review Additional record(s) reviewed:: Prior outpatient record, Prior ED visit and Prior labs Lab Data Attestation: I reviewed the patient's lab results. Lab results narrative: CBC was reviewed. There is a mild leukocytosis of 12.4. The remainder is within normal limits. Comprehensive metabolic profile was reviewed. Alkaline phosphatase is slightly elevated at 278, ALT was minimally elevated at 64, and ALT was minimally elevated at 72. The remainder was within normal limits. Lipase was reviewed and was normal at 26. Labs: Laboratory Results - last 24 hr 03/13/25 06:00 WBC 12.4 H RBC 4.97 Hgb 13.9 Hct 42.5 MCV 85.5 MCH 28.0 MCHC 32.7 RDW Std Deviation 41.2 RDW Coeff of Dc 13.2 Plt Count 209 MPV 11.3 Immature Gran % (Auto) 0.500 Neut % (Auto) 81.7 H Lymph % (Auto) 8.3 L [place] % (Auto) 7.8 Eos % (Auto) 1.4 Baso % (Auto) 0.3 Absolute Neuts (auto) 10.1 H Absolute Lymphs (auto) 1.03 Nucleated RBC % 0 Sodium 137 Potassium 3.8 Chloride 100 Carbon Dioxide 24.8 Anion Gap 12 BUN 11 Creatinine 0.90 Estim Creat Clear Calc 106.91 Est GFR (MDRD) Non-Af 105 BUN/Creatinine Ratio 12.4 Glucose 129 H Calcium 9.7 Total Bilirubin 0.94 AST 64 H ALT 72 H Alkaline Phosphatase 278 H Total Protein 8.2 Albumin 4.6 Globulin 3.6 Albumin/Globulin Ratio 1.3 Lipase 26 Radiography Diagnostic Testing: Clinical Impression(s) from Imaging Studies Chest X-Ray 03/13/25 06:45 IMPRESSION: Interval appearance of mild bilateral basilar atelectatic pulmonary changes. Reading Location: [place] [address] PA and lateral chest x-ray was obtained. There are 2 views. On my independent interpretation, lung wang show bibasilar atelectasis. There is normal cardiac silhouette. Bony thorax is normal. There is no acute process noted. Radiologist also interpreted the x-ray and agrees. EKG Initial EKG: Attestation: I personally reviewed and interpreted this EKG as follows: Interpretation: No Acute Injury Pattern and Sinus Tachycardia (113) Comments: EKG was obtained. On my independent interpretation, it showed a sinus tachycardia with a rate of 113. [place] interval, QRS interval, and QTc intervals were all normal. [place] was normal. There are no acute ST or T wave changes. Prior EKG tracings: available for review Prior: Unchanged (11/13/2023) Treatment and Re-Evaluation :: Patient was given IV fluids. Patient was given a dose of Tylenol. Care of the patient will be turned over to the oncoming physician pending lab results. <Marcus Delatorre MD - Last Filed: 03/13/25 08:08> [facility] Lab Data Labs: Laboratory Results - last 24 hr 03/13/25 06:00 WBC 12.4 H RBC 4.97 Hgb 13.9 Hct 42.5 MCV 85.5 MCH 28.0 MCHC 32.7 RDW Std Deviation 41.2 RDW Coeff of Dc 13.2 Plt Count 209 MPV 11.3 Immature Gran % (Auto) 0.500 Neut % (Auto) 81.7 H Lymph % (Auto) 8.3 L [place] % (Auto) 7.8 Eos % (Auto) 1.4 Baso % (Auto) 0.3 Absolute Neuts (auto) 10.1 H Absolute Lymphs (auto) 1.03 Nucleated RBC % 0 Sodium 137 Potassium 3.8 Chloride 100 Carbon Dioxide 24.8 Anion Gap 12 BUN 11 Creatinine 0.90 Estim Creat Clear Calc 106.91 Est GFR (MDRD) Non-Af 105 BUN/Creatinine Ratio 12.4 Glucose 129 H Calcium 9.7 Total Bilirubin 0.94 AST 64 H ALT 72 H Alkaline Phosphatase 278 H Total Protein 8.2 Albumin 4.6 Globulin 3.6 Albumin/Globulin Ratio 1.3 Lipase 26 Radiography Diagnostic Testing: Clinical Impression(s) from Imaging Studies Chest X-Ray 03/13/25 06:45 IMPRESSION: Interval appearance of mild bilateral basilar atelectatic pulmonary changes. Reading Location: [place] [address] Treatment and Re-Evaluation :: Patient was given IV fluids. Patient was given a dose of Tylenol. Care of the patient will be turned over to the oncoming physician pending lab results. Dr. Delatorre: Patient endorsed to me to continue workup and reviewed laboratory work and chest x-ray radiology report on this patient that was having midsternal chest pain. I reviewed his laboratory work and while he has slight leukocytosis of 12 I think this is nonspecific. AST and ALT are slightly elevated as well as alk phos but in review of prior labs, he had nonspecific elevation as well. He has a normal total bilirubin of 0.94. Lipase is normal so I doubt pancreatitis. Upon repeat examination, he is resting comfortably without nausea or vomiting. I reviewed the radiology report of the chest x-ray which comments on bibasilar atelectasis but no consolidation. I do not feel attics are indicated. At this point in time, I do feel that he can be discharged to follow-up with his primary care provider as planned. Return instructions to the emergency department were reviewed with the patient and his family. Disposition is discharged home in stable condition. Discharge Plan Triage Chief Complaint: Chest Pain ED Provider: Abdias Washington Dx/Rx/DC Orders Clinical Impression: Chest pain, Schizophrenia, Autism Instructions: ED Chest Pain, Uncertain Cause Prescriptions: No Action mirtazapine 15 mg tablet,disintegrating 15 mg PO DAILY Patient Comments: DISSOLVE 1 (ONE) TABLET ON TOP OF TONGUE, THEN SWALLOW IN THE EVENING BEFORE SLEEP ferrous sulfate 220 mg (44 mg iron)/5 mL solution 325.6 mg PO .COMPLEX Rx Instructions: 325.6 mg orally 3XW; ergocalciferol (vitamin D2) 1,250 mcg (50,000 unit) capsule 1,250 mcg PO QWEEK olanzapine 15 mg tablet,disintegrating 15 mg PO DAILY AtorvaliQ 20 mg/5 mL (4 mg/mL) suspension 20 mg PO DAILY Patient Comments: [NO ORIGINAL SIG] ascorbic acid (vitamin C) [Acerola C] 500 mg tablet,chewable 1 g PO DAILY Else Toddler [place] 5 gram-180 kcal/36 gram powder 1 ea PO DAILY levocetirizine [Xyzal] 2.5 mg/5 mL solution 2.5 mg PO DAILY mecobalamin (vitamin B12) 1,000 mcg tablet,chewable 1,000 mcg PO DAILY magnesium 250 mg tablet 250 mg PO DAILY calcium citrate 760 mg calcium /3.5 gram granules 760 mg PO DAILY esomeprazole magnesium [address] for susp in packet 40 mg PO QDAY Qty: 30 1RF Primary Care Provider: Carly Ramachandran Referrals: Carly Ramachandran, [facility] [Primary Care Provider, Medical] - 3-5 Days if not improving Activity Restrictions/Additional Instructions: Return with increased pain, difficulty breathing, new or worsening symptoms. Otherwise follow-up with your primary care provider in the next 3 to 5 days if not improving. Print Language: Scottish Disposition Disposition: Home, Self Care
[2025-03-13 06:30] VITALS: BP 132/93; PULSE 105; RESP 18; O2SAT 96
--- NOTE | 2025-03-13 06:31 | EKG12_ITS ---
Test Reason : CP Blood Pressure : */* mmHG Vent. Rate : 113 BPM Atrial Rate : 113 BPM P-R Int : 154 ms QRS Dur : 78 ms QT Int : 318 ms P-R-T Axes : 13 26 32 degrees QTcB Int : 436 ms Sinus tachycardia Otherwise normal ECG Confirmed by COLIN CORTEZ ([id number]), editor farm journal JENNIFER HOOVER ([id number]) on 03/15/2025 7:10:25 AM Referred By: NIKKI Confirmed By: COLIN CORTEZ
[2025-03-13] MEDS: 0.9% Normal Saline (1000mL) 1,000 ML 1000 ML IV (06:36)
[2025-03-13 06:39] LABS: Hematocrit 42.5 % (40-54); Hemoglobin 13.9 g/dL (13.0-16.5); Immature Granulocytes Count 0.060 X10^3/uL (0.0-0.0); Mean Corp Hgb Conc 32.7 g/dL (32-36); Mean Corpuscular Volume 85.5 fL (80-94); Mean Platelet Vol. 11.3 fl (6.2-12.0); NRBC Flagged by Analyzer 0 % (0-5); Platelet Count 209 K/mm3 (150-450); RBC Distribution Width CV 13.2 % (11.6-14.6); RBC Distribution Width SD 41.2 fl (35.1-43.9); Red Blood Count 4.97 M/mm3 (4.6-6.2); White Blood Count 12.4 K/mm3 (4.4-11.0)
--- NOTE | 2025-03-13 06:45 | RAD_ITS ---
PROCEDURE: CHEST PA AND LATERAL 03/13/2025 REASON FOR EXAM: CHEST PAIN TECHNIQUE: Procedure Code: RADCXR Modality: DX Procedure: CHEST PA AND LATERAL COMPARISON: 12/13/2023. FINDINGS: Interval appearance of mild bilateral basilar atelectatic pulmonary changes. There is no demonstrated pleural abnormality. Normal heart and pericardium. Normal mediastinum and kaleb. Normal visualized pulmonary arteries. Normal visualized aortic arch and descending thoracic aorta. Normal visualized thoracic spine. Normal visualized ribs, clavicles, and shoulders. There is no demonstrated abnormality of the visualized soft tissue structures of the upper abdomen. RAD/Chest PA and Lateral IMPRESSION: Interval appearance of mild bilateral basilar atelectatic pulmonary changes. Reading [facility]
--- OUTSIDE RECORDS SUMMARY | 2025-03-13 06:46 | XMS RPT_ITS | CCD ---
Author Organization [facility] ion [facility] Care Team Providers Care Covered Button Maker Name Role Phone Michelle Neely Unavailable Unavailable Yoselyn Smith Unavailable Unavailable Michelle Neely Unavailable Unavailable Michelle Neely Unavailable [phone] Unavailable Unavailable Unavailable Unavailable Unavailable Unavailable Keenan, [...] Primary Care Provider Michelle Neely MD Unavailable [phone] Sina BOILER OPERATOR HELPER.Niraj LEWIS Primary Care Provider Knoble BOILER OPERATOR HELPER.FIRE HYDRANT OPERATOR, Niraj Primary Care Provider Carlioble BOILER OPERATOR HELPER-FIRE HYDRANT OPERATOR, Niraj L Primary Care Provide r JORY ANDERSON Attending Unavailable KNOBLE, NIRAJ L Primary Care Unavailable SELF, SELF Referring Unavailable STRIEB, RILEY Referring Unavailable STRIEB, RILEY Attending Unavailable KNOBLE, NIRAJ L Primary Care Unavailable SANGITA CELESTIN Attending Unavailable KNOBLE, NIRAJ L Primary Care Unavailable SELF, SELF Referring Unavailable Knoble TOOLMAKER GRADE THREE-C, Niraj Primary Care Provider Provider, Ed Physician Attending Provider Sachin sampson Provider, Ed Physician Emergency Provider Sachin Andino TOOLMAKER GRADE THREE-C, Niraj Referring Provider Sariah Christina Attending Provider Sina TOOLMAKER GRADE THREE-C, Niraj Primary Care Provider Abdias Joshua Attending Provider Abdias Joshua Referring Provider Marcus Delatorre MD Emergency Provider [phone] CADY WALDRON Attending Unavaila ble SINA, NIRAJ Primary Care Unavailable Sina TOOLMAKER GRADE THREE-C, Niraj Primary Care Physician Sina TOOLMAKER GRADE THREE-C, Niraj Referring Provider Sariah Christina Attending Physician Abdias Joshua Attending Physician Marcus Delatorre MD Attending Physician Marcus Delatorre MD Emergency Department Physician Sariah Christina Referring Provider KNOBLENIRAJ Attending Unavailable KNOBLE, NIRAJ Primary Care Unavailable KNOBLE, NIRAJ Referring Unavailable KNOBLE, NIRAJ Primary Care Unavailable KNOBLE, NIRAJ Primary Care Unavailable KNOBLE NIRAJ Attending Unavailable KNOBLE, NIRAJ Primary Care Unavailable ALIZE VILLA Attending Unavailable PODLOGARDONNA Attending Unavailable KNOBLE, NIRAJ Primary Care Unavailable PODLOGARDONNA Referring Unavailable KNOBLE, NIRAJ Primary Care Unavailable KNOBLE, NIRAJ Primary Care Unavailable KNOBLE, NIRAJ Attending Unavailable KNOBLE, NIRAJ Primary Care Unavailable KNOBLE, NIRAJ Attending Unavailable KNOBLE, NIRAJ Attending Unavailable KNOBLE, NIRAJ Primary Care Unavailable KNOBLE, NIRAJ Primary Care Unavailable LORRAINE DONG Unavailable KNOBLE, NIRAJ Primary Care Unavailable KNOBLE, NIRAJ Referring Unavailable KNOBLE, NIRAJ Primary Care Unavailable KNOBLE, NIRAJ Attending Unavailable KNOBLE, NIRAJ Primary Care Unavailable KNOBLE, NIRAJ Referring Unavailable KNOBLE, NIRAJ Primary Care Unavailable KNOBLE, NIRAJ Primary Care Unavailable KNOBLE, NIRAJ Attending Unavailable KNOBLE, NIRAJ Primary Care Unavailable KNOBLE, NIRAJ Referring Unavailable SELF Referring Unavailable KNOBLE, NIRAJ Primary Care Unavailable KNOBLE, NIRAJ Attending Unavailable KNOBLE, NIRAJ Primary Care Unavailable JANETT PERDOMO Attending Unavailable KNOBLE, NIRAJ Referring Unavailable KNOBLE, NIRAJ Primary Care Unavailable KNOBLE, NIRAJ Primary Care Unavailable KNOBLE, NIRAJ Referring Unavailable KNOBLE, NIRAJ Primary Care Unavailable KNOBLE, NIRAJ Referring Unavailable Knoble, Niraj Primary Care Unavailable Knoble, Niraj Referring Unavailable AtaSariah jean Attending Unavailable Knoble, Niraj Referring Unavailable Knoble, Niraj Primary Care Unavailable AtaSariah jean Attending Unavailable Knoble, Niraj Primary Care Unavailable Knoble, Niraj Referring Unavailable Osman Chong Attending Unavailable OrozcoAbdias Attending Unavailable Orozco, Abdias Referring Unavailable Knoble, Niraj Primary Care Unavailable Knoble, Niraj Primary Care Unavailable AtaSariah jean Attending Unavailable AtanasovSariah Referring Unavailable Marcus Delatorre Attending Unavailable Knoble, Niraj Primary Care Unavailable Knoble, Niraj Primary Care Unavailable Provider, Ed Physician Attending Unavailab le Knoble, Niraj Referring Unavailable Knoble, Niraj Primary Care Unavailable FriendOsman Consulting Unavailable FriendOsman Attending Unavailable Knoble, Niraj Referring Unavailable Knoble, Niraj Primary Care Unavailable Sariah Mcdoanld Attending Unavailable Knoble, Niraj Referring Unavailable Knoble, Niraj Primary Care Unavailable AtaSariah jean Attending Unavailable Knoble, Niraj Referring Unavailable Knoble, Niraj Primary Care Unavailable AtaSariah jean Attending Unavailable Medications Current Medications Medication Drug Class(es) Dates Sig (Normalized) Sig (Original) ascorbic acid 500 mg chewable tablet (20 sources) Vitamin C Start: 12-09-2024 take 1 g by mouth once daily Start: 07-26-2023 take 1 tablet by jose th once daily ascorbic acid, vitamin C, (VITAMIN C) 500 mg tablet Indications: Iron deficiency Take 1 tablet by mouth once daily. 90 tablet 1 07/26/2023 Active Comment on above: Take 1 tablet by jose th once daily. atorvastatin 20 mg oral tablet (17 sources) HMG-CoA Reductase Inhibitor Start: 12-09-2024 take 20 mg by mouth once daily Start: 08-14-2024 take 5 mL by mouth [...] Citrate 760 mg calcium /3.5 gram granules (3 sources) Start: 12-09-2024 take 760 mg by mouth once daily Start: 12-09-2024 take 760 mg by mouth once nay y Calcium Citrate 760 mg calcium /3.5 gram [...] capsule (20 sources) Provitamin D2 Compound Start: 12-09-2024 Start: 07-26-2023 End: 08-14-2024 take 1 capsule by mouth every week ergocalciferol 50,000 unit capsule (VITAMIN D2, DRISDOL) Indications: Vitamin D deficiency Take 1 capsule by mouth one time a week. 12 capsule 3 08/14/2024 Active Comment on above: Take 1 capsule by [facility] one time a week. escitalopram 1 mg/ml oral solution (20 sources) Serotonin Reuptake Inhibitor Start: 4 End: 4 take 5 mL by mouth once daily Escitalopram Oxalate 5 MG/5ML Solution Take 5 (FIVE) Milliliter By mouth once daily 10/28/2023 Active esomeprazole 40 mg granules for oral suspension (10 sources) Proton Pump Inhibitor Start: 5 End: 5 take 40 mg by mouth once daily ferrous sulfate 44 mg/ml oral solution (8 sources) Start: 5 Start: 07-26-2023 End: 08-06-2023 take 1 tablet by mouth once daily ferrous sulfate 325 mg (65 mg iron) tablet Indications: Iron deficiency Take 1 tablet by mouth once daily. 90 tablet 0 07/26/2023 08/06/2023 Discontinued Comment on above: [facility] ferrous sulfate 220 mg/5 mL [...] mouth two times a day before meals. 02440 mL 5 04/25/2023 Active Start: 02-28-2023 End: 04-24-2023 food supplemt, lactose-reduc ed (BOOST MEN) 0.08 gram- 0.9 kcal/mL liqd Indications: Moderate protein-calorie malnutrition (HCC) Take 1 Bottle by mouth two times a day before meals. 34448 mL 5 02/28/2023 04/24/2023 Discontinued Start: 02-28-2023 food supplemt, lactose-reduced (BOOST MEN) 0.08 gram- 0.9 kcal/mL liqd Indications: Moderate protein-calorie malnutrition (HCC) Take 1 Bottle by mouth two times a day before meals. 87847 mL 5 02/28/2023 Active Comment on above: Take 1 Bottle by jose th two times a day before meals. KAOPECTATE, ATTAPULGITE, ORAL (20 sources) KAOPECTATE, ATTAPULGITE, ORAL Take by mouth. Dr Chong Active Lactobac no.41/Bifidobact no.7 (PROBIOTIC-10 ORAL) (20 sources) Lactobac no.41/Bifidobact no.7 (PROBIOTIC-10 ORAL) Take by mouth. Toby - Friend Active lactose-reduced food (ENSURE PLUS ORAL) (2 sources) lactose-reduced food (ENSURE PLUS ORAL) Take 1 Can by mouth 1 (one) time each day. 0 Active levocetirizine dihydrochloride 0.5 mg/ml oral solution (13 sources) Histamine-1 Receptor Antagonist Start: take 2.5 mg by mouth once daily Start: 12-09-2024 End: 12-09-2024 take 4.5 mg by mouth once daily Levocetirizine 2.5 mg/5 mL solution Discontinued 4.5 mg PO DAILY December 09, 2024 12:00am December 09, 2024 2:59pm Start: 10-02-2024 take 5 mg by mouth once daily levocetirizine (XYZAL) 2.5 mg/5 mL solution Indications: Seasonal allergies Take 5 mg by mouth once daily. 300 mL 5 10/02/2024 Active Magnesium (3 sources) Start: 12-09-2024 take 1 tablet by mouth once da rosalina Start: 12-09-2024 take 1 tablet by jose th once daily Magnesium 250 mg tablet Active 250 mg PO DAILY December 09, 2024 12:00am mecobalamin 1 mg chewable ta blet (3 sources) Start: 12-09-2024 take 1 tablet by jose th once daily mirtazapine 15 mg disintegra ting oral tablet (20 sources) Start: 06-17-2024 take 1 tablet by jose th once daily take 1 tablet by jose th once [...] take 1 tablet by mouth once daily Start: 12-06-2022 Olanzapine Act roc MG December 06, 2022 12:00am Start: 05-27-2018 End: 12-09-2024 take 1 tablet by mouth at bedtime Olanzapine 5 mg tablet,disintegrating Discontinued 5 mg PO AT BEDTIME 30 December 06, 2022 12:00am December 09, 2024 2:22pm Comment on above: Take 5 mg by mouth daily at bedtime. omega-3 DHA-EPA (FISH OIL) 1,200 (144-216) mg capsule (20 sources) Start: 07-26-19 take 1 capsule by mouth once daily at breakfast omega-3 DHA-EPA (FISH OIL) 1,200 (144-216) mg capsule Indications: Hypertriglyceridemia Take 1 capsule by mouth daily with breakfast. 90 capsule 1 07/26/2023 Active Comment on above: Take 1 capsule by mouth daily with break fast. Pedi Nutrition,Iron,L act-Free (Else Toddler Quinlan) 5 gram-180 kcal/36 gram powder (3 sources) Start: 12-10-19 Start: 12-09-2024 Pedi Nutrition ,Iron,Lact-Free (Else Toddler Quinlan) 5 gram-180 kcal/36 gram powder Active 1 NMA PO DAILY December 09, 2024 12:00am polymyxin b 05714 unt/ml / trimethoprim 1 mg/ml ophthalmic solution (1 source) Dihydrofolate Reductase Inhibitor Antibacterial, Polymyxin-class Antibacterial Start: 04-21-2024 End: 04-28-2024 take 1 drop(s) into the eye(s) every four hours trimethoprim-polymyxin (POLYTRIM) 10,000 unit- 1 mg/mL ophthalmic solution Indications: Bacterial conjunctivitis Use 1 Drop in the left eye every 4 hours for 7 days. 10 mL 04/21/2024 04/28/2024 Active selenium 50 mcg tab (20 sources) Start: 07-30-2023 take 1 tablet by mouth once daily selenium 50 mcg tab Indications: Decreased appetite Take 1 tablet by mouth once daily. Takes as a gummie 07/30/2023 Active Start: 07-30-2023 take 1 tablet by jose th once daily selenium 50 mcg tab Indications: [...] Comment on above: Take 25 tablets by [facility] once daily. Takes as a gummie [...] 1 11/01/2022 07/26/2023 Discontinued Start: 09-21-2016 End: 12-09-2024 take 1 capsule by mouth once daily [...] by mouth two times a day. Dr Friend Active dicyclomine hydrochloride 20 mg oral tablet (6 sources) Anticholinergic Start: 12-13-2023 End: 12-09-2024 take [...] DAILY. Quantity: 1 Refills: 2 Ordered: 01-Jan-2018 Keenan EDGE, Michelle Salvador Start : 10-Aug-2013 Active End: 07-23-2022 take 1 spray(s) nasal route once daily fluticasone (FLONASE) 50 mcg/actuation nasal spray Use 1 Sabine in each nostril once daily. Active Comment on above: Use 1 Sabine in each nostril once daily. loratadine 10 mg chewable tablet (20 sources) Start: 12-06-2022 End: 06-17-2024 take 1 tablet by mouth once daily Loratadine (Claritin) 10 mg tablet,chewable Discontinued 10 mg PO DAILY December 06, 2022 12:00am June 17, 2024 11:04am Start: 12-06-2022 End: 06-17-2024 take 1 tablet [...] omeprazole 40 mg delayed release oral capsule (9 sources) Proton Pump Inhibitor Start: 12-07-19 End: 12-10-19 take 1 capsule by mouth once daily Omeprazole 40 mg capsule,delayed release(DR/EC) Discontinued 40 mg PO DAILY 18 06December 06, 2022 12:00am December 09, 2024 2:59pm ondansetron 8 mg disintegrating oral tablet (6 sources) Serotonin-3 Receptor Antagonist Start: 09-30-19 End: [...] mouth once daily Pantoprazole 40 mg granules for susp in packet Discontinued 40 mg PO daily June 23, 2024 1:00am October 28, 2024 3:43pm Start: 12-31-2022 End: 06-17-2024 take 1 tablet by mouth once daily Pantoprazole 40 mg tablet,delayed release (DR/EC) Discontinued 40 mg PO DAILY September 29, 2023 12:00am June 17, 2024 11:05am Start: 11-02-2022 End: 02-28-2023 pantoprazole (PROTONIX) 40 [...] tablet by jose th once daily. (capsule) sucralfate 100 mg/ml oral suspension (2 sources) Aluminum Complex Start: 04-14-2024 End: 10-28-2024 take 1 mL by mouth twice daily Sucralfate 100 mg/mL suspension Discontinued 10 mL PO TWICE A DAY 1119 56 April 14, 2024 1:00am October 28, 2024 3:43pm Sucralfate 100 mg/mL suspension (3 sources) Start: [...] pain; Translations: [Abdominal pain, unspecified site] Onset: 3 06-04-2022 Episodic Administrative/social admission (10 sources) Repeated prescription; Translations: [Encounter for issue of repeat prescription] Onset: 5 12-06-2022 Episodic Anal and rectal conditions (1 source) Anal inflammation; Translations: [Other specified diseases of anus and rectum] 12-19-2023 Episodic Attention-deficit, conduct, and disruptive behavior disorders (9 sources) Altered behavior; Translations: [Other symptoms and signs involving appearance and behavior] 12-06-2022 Episodic Attention-deficit, conduct, and disruptive behavior disorders (3 sources) Aggressive behavior; Translations: [Other symptoms and signs involving appearance and behavior] 12-09-2024 Episodic Blindness and vision defects (2 sources) Bilateral irregular astigmatism of eyes; Translations: [Irregular astigmatism, bilateral] Onset: 5 01-22-2025 Episodic Developmental disorders (20 sources) Intellectual functioning disability ; Translations: [Unspecified intellectual disabilities] Onset: 3 06-04-2022 Chronic Comment on above: Added by Problem Chaya Henry; 2013-04-22; Disorders of lipid metabolism (20 sources) Primary hypertriglyceridemia; Translations: [Pure hyperglyceridemia] Onset: 3 06-04-2022 Chronic Disorders usually diagnosed in infancy, childhood, or adolescence (13 sources) Autistic disorder; Translations: [Autistic disorder] Onset: 5 12-06-2022 Chronic Esophageal disorders (20 sources) Gastroesophageal reflux disease; Translations: [Esophageal reflux] Onset: 3 Chronic Fluid and electrolyte disorders (6 sources) Hypokalemia, gastrointestinal losses; Translations: [Hypokalemia] 09-30-2023 Episodic Genitourinary symptoms and ill-defined conditions (1 source) Dysuria; Translations: [Dysuria] 09-02-2023 Episodic Malaise and fatigue (2 sources) Weakness; Translations: [Weakness] Onset: 3 Episodic Miscellaneous mental health disorders (13 sources) Mental disorder; Translations: [Unspecified nonpsychotic mental disorder] Onset: 3 06-04-2022 Chronic Noninfectious gastroenteritis (6 sources) Gastroenteritis; Translations: [Noninfective gastroenteritis and colitis, unspecified] 09-30-2023 Episodic Nonspecific chest pain (5 sources) Chest pain; Translations: [Chest pain, unspecified] 12-21-2023 Episodic Nutritional deficiencies (20 sources) Vitamin D deficiency; Translations: [Unspecified vitamin D deficiency] Onset: 3 Chronic Comment on above: Added by Problem Chaya Henry; 2013-04-22; Malnutrition; Nutritional deficiencies (8 sources) Undernutrition; Translations: [Cachexia] Onset: 3 07-26-2023 [...] otitis externa, left ear] 03-13-2024 Episodic Other eye disorders (1 source) Alternating esotropia; Translations: [Alternating esotropia] 01-22-2025 Episodic Other eye disorders (1 source) Corneal thinning; Translations: [Other specified disorders of cornea, bilateral] 01-22-2025 Episodic Other eye disorders (1 source) Alternating esotropia; Translations: [Alternating esotropia] Onset: 5 Episodic Other gastrointestinal disorders (14 sources) Loose stool; Translations: [Other fecal abnormalities] 08-26-2024 Episodic Other gastrointestinal disorders (9 sources) Constipation; Translations: [Constipation, unspecified] 04-14-2024 Episodic Other gastrointestinal disorders (1 source) Other fecal abnormalities; Translations: [Other fecal abnormalities] Onset: 5 Episodic Other liver diseases (8 sources) Enzyme level - finding; Translations: [Elevated transaminase measurement] 12-23-2022 Episodic Other liver diseases (5 sources) Alkaline phosphatase raised; Translations: [Abnormal levels of other serum enzymes] 08-27-2024 Episodic Other lower respiratory disease (16 sources) Cough; Translations: [Cough] Onset: 3 06-04-2022 Episodic Comment on above: Added by Sampson Henry; 2013-04-22; Other lower respiratory disease (4 sources) [...] development in childhood] Onset: 5 Episodic Other nutritional; endocrine; and metabolic disorders (1 source) Anorexia; Translations: [Decrease in appetite] Onset: 5 Episodic Other screening for suspected conditions (not mental disorders or infectious disease) (20 sources) Decreased thyroid stimulating hormone level; Translations: [Nonspecific abnormal results of function study of thyroid] Onset: 3 Episodic Other upper respiratory disease (17 sources) Allergic rhinitis; Translations: [Allergic rhinitis, cause unspecified] Onset: 3 10-22-2022 Chronic Comment on above: Added by Sampson Henry; 2013-04-22; Other upper respiratory disease (2 sources) [...] right ear] 11-28-2023 Episodic Residual codes; unclassified (4 sources) Restlessness and agitation; Translations: [Restlessness and [...] source) Acute cough; Translations: [Acute cough] Onset: 5 Viral infection (7 sources) Disease caused by 2019-nCoV; Translations: [COVID-19] 01-11-2023 Episodic Past or Other Problems Problem Classification Problem Date Documented Da te Episodic/Chronic Allergic reactions (16 sources) Eczema; Translations: [Contact dermatitis and other eczema, unspecified cause] Onset: 06-04-2022 06-04-2022 Episodic Diabetes mellitus without complication (15 sources) Hyperglycemia; Translations: [Other abnormal glucose] Onset: 06-04-2022 06-04-2022 Episodic Immunizations and screening for infectious disease (2 sources) Vaccination needed; Translations: [Encounter for immunization] Onset: 08-11-2024 03-16-2024 Episodic Inflammation; infection of eye (except that caused by tuberculosis or sexually transmitteddisease) (2 sources) Bacterial conjunctivitis; Translations: [Unspecified conjunctivitis] Onset: 04-21-2024 04-21-2024 Episodic Intestinal infection (13 sources) Infection caused by Helicobacter pylori; Translations: [Other specified bacterial intestinal infections] Onset: 08-26-2024 08-26-2024 Episodic Other aftercare (1 source) Other fpc (current) drug therapy; Translations: [Medication management] Onset: 08-11-2024 Episodic Other ear and sense organ disorders (2 sources) Otalgia, left ear; Translations: [Otalgia, unspecified] Onset: 11-16-2024 11-16-2024 Episodic Other ear and sense organ disorders (1 source) Unspecified acute noninfective otitis externa, left ear; Translations: [Acute otitis externa of left ear, unspecified type] Onset: 03-13-2024 Episodic Other ear and sense organ disorders (1 source) Impacted cerumen, left ear; Translations: [Impacted cerumen of left ear] Onset: 03-13-2024 Episodic Other liver diseases (1 source) Abnormal [...] of nutritional deficiency] Resolved: 11-09-2013 Episodic Other upper respiratory infections (20 sources) [...] [Impaired development of adult] Onset: 03-13-2024 Episodic Unclassified (3 sources) History of clinical [...] Test Name Value Interpretation Reference Range Facility 25(OH)D3 [facility] 2024 25-hydroxyvitamin D3 [Mass/Vol] 44.8 ng/mL Normal 31.0-80.0 [facility] Comment on above: Order Comment: Speci men Type: BLOOD SPECIMENOrdering Facility: [facility] Address: [address] [place] [address] Result Comment: Clas sification of 25 [place] Vitamin D status: Deficiency/Insufficiency: < or = 30 ng/ml. Sufficiency/Optimal Levels: 31-80 ng/mL Toxicity: > 100 ng/mL. Test performed by chemiluminescent immunoassay. Performed By: #### 1 [id number] ####[facility] LABCLIA [id number] [address] OF [facility] CNOVon 02-16-2025 CNOV Office Visit (ROLY ) ARVIND DOMÍNGUEZ ([id number]) 1975 M GRD Date Time Provider Department 02/16/25 3:40 PM NIRAJ ANDINO During your visit today, we recorded the following information about you: Pulse Blood pressure Weight 101/minute 149/90 71 kg Niraj Andino APRN.FIRE HYDRANT OPERATOR 02/16/2025 4:19 PM Signed Chief Complaint Patient presents with: 6 Month Exam HPI Arvind Domínguez is a 49 year old male who presents here today for Above Complaints. Patient presents for routine follow up. Patient's sister reports he has been doing well, would like his ears checked. Reports he is using picture chart at home and doing well. Verbal skills are reported to be improving. Past medical history, appointments, medications, allergies reviewed. Previous Medical History PAST MEDICAL HISTORY Diagnosis Date Autism (HCC) GERD (gastroesophageal reflux disease) Mental disability Schizophrenia [...] Dr Chong (Patient not taking: Reported on 01/22/2025) KAOPECTATE, ATTAPULGITE, ORAL Take by mouth. Dr [...] (FLONASE) 50 mcg/actuation nasal spray Use 1 Sabine in each nostril once daily. OLANZapine orally disintegrating (ZYPREXA ZYDIS) 5 mg disintegrating tablet Take 5 mg by mouth daily at bedtime. Nutritional Supplements (ENSURE PUDDING) pudg Take 113 g by mouth twice daily. No current facility-administered medications on file prior to visit. Social History SOCIAL HISTORY[1] Review of Symptoms REVIEW OF SYSTEMS SEE HPI EXAM: BP 149/90 Pulse 101 Wt 71 kg (156 lb 8.4 oz) BMI 22.46 kg/m? General Appearance: Well appearing, alert, in no acute distress, well-hydrated, well nourished. Lungs: Lungs clear to auscultation. No wheezing, rhonchi, rales.. Heart: RRR without murmur, gallop, or rubs. No ectopy. Peripheral Pulses: Normal. Health Maintenance List Depression Screening Never done HIV Screening Never done Colorectal Cancer Screening Never done Medicare Advantage Annual Wellness Visit Never done Hepatitis B Vaccine(3 of 3 - 19+ 3-dose series) due on 10/06/2024 Influenza Vaccine(1) due on 01/18/2025 Anxiety Screening due on 08/11/2025 Diabetes Screening due on 12/19/2027 Lipid Screening due on 08/11/2029 DTaP,Tdap,Td Vaccine(2 - Td or Tdap) due on 03/03/2034 Hepatitis C Screening Completed ASSESSMENT/PLAN: 1. Vitamin D deficiency - ICD9: 268.9, ICD10: E55.9 (primary diagnosis) - VITAMIN D 25 HYDROXY - ERGOCALCIFEROL (VITAMIN D2) 1,250 MCG (50,000 UNIT) CAPSULE 2. Iron deficiency - ICD9: 280.9, ICD10: E61.1 - IRON AND TIBC - FERROUS SULFATE 220MG/5ML (120ML) 3. Hyperlipidemia, mixed - ICD9: 272.2, ICD10: E78.2 - Uncontrolled - Continue current medications - Counseled on healthy diet and regular exercise - Discussed need for and benefit of weight loss. BMI 22.46 kg/(m2) - LIPID PANEL, NONFASTING - ATORVASTATIN 20 MG/5 ML (4 MG/ML) ORAL SUSPENSION 4. Encounter for immunization - ICD9: V03.89, ICD10: Z23 - INFLUENZA VACCINE, PRSV FREE, AGE 6MO-64YR, TRIVALENT (AFLURIA, FLUARIX, FLULAVAL, FLUVIRIN, FLUZONE) (more content not included)... Normal [facility] Iron and Iron binding capaci ty panelon 02-16-2025 Iron [Mass/Vol] 30 ug/dL Low 41-186 [facility] Comment on above: Order Comment: Speci men Type: BLOOD SPECIMENOrdering Facility: [facility] Address: [address] [place], [place] [id number] Performed By: #### L IPNF, [id number] ####[facility] LABCLIA [id number] [address] [address] [place] Iron binding capacity [Mass/Vol] 291 ug/dL Normal 232-386 [facility] Comment on above: Order Comment: Speci men Type: BLOOD SPECIMENOrdering Facility: [facility] Address: [address] [place] [address] Performed By: #### L IPNF, [id number] ####[facility] LABCLIA [id number] [address], [facility] [place] Iron/TIBC [Molar ratio] 10.3 % Low 15.0-57.0 [facility] Comment on above: Order Comment: Speci men Type: BLOOD SPECIMENOrdering Facility: [facility] Address: [address] [place] [address] Performed By: #### L IPNF, 16245-4 ####[facility] [facility] LABCLIA [id number] [address] [place] [address] [place] LIPID PANEL, NONFASTINGon Cholesterol [Mass/Vol] 170 mg/dL Normal <200 [facility] Comment on above: Order Comment: Speci men Type: BLOOD SPECIMENOrdering Facility: [facility] Address: [address] [place], [place] [address] Result Comment: <200 mg/dL, Desirable 200-239 mg/dL, Borderline high >239 mg/dL, High Performed By: #### L IPNF, 07671-3 ####[facility] LABCLIA [id number] [address] [address] [place] HDL CHOLESTEROL, NF 37 mg/dL Low >39 [facility] Comment on above: Order Comment: Speci men Type: BLOOD SPECIMENOrdering Facility: [facility] Address: [address] [place] [address] Result Comment: 40-5 9 mg/dL, Acceptable >59 mg/dL, High: Negative risk factor for coronary heart disease <40 mg/dL, Low: Positive risk factor for coronary heart disease Performed By: #### L IPNF, 45268-8 ####[facility] LABCLIA [id number] [address] OF [facility] LDL CHOLESTEROL CALCULATED, NF 96 mg/dL Normal <100 [facility] Comment on above: Order Comment: Barringtonranjith roy Type: BLOOD SPECIMENOrdering Facility: [facility] Address: [address] [place] [address] Result Comment: <100 mg/dL, Optimal 100-129 mg/dL, Near optimal/above optimal 130-159 mg/dL, Borderline high 160-189 mg/dL, High >189 mg/dL, Very high Secondary prevention optimal LDL Cholesterol levels are recommended to be <70 mg/dL LDL cholesterol is calculated using the Mas-NIH equation. Performed By: #### L IPNF, 58717-6 ####[facility] LABCLIA [id number] [address] OF [facility] LDL/HDL RATIO, NF 2.59 mg/dL High <2.54 [facility] Comment on above: Order Comment: [place] roy Type: BLOOD SPECIMENOrdering Facility: [facility] Address: [address] [place] [address] Result Comment: Mickie cazares: 1. National Cholesterol Education Program ATP III Guideline At-A-Glance Quick Desk Reference: National Heart, Lung, and Blood [place]. National Institutes of Health. 2001: NIH Publication No. 01-3305. 2. An International Atherosclerosis Society position paper: global recommendations for the management of dyslipidemia: executive summary, Atherosclerosis. 2014: 232(2):410-413. Performed By: #### L IPNF, 36826-4 ####[facility] LABCLIA [id number] [address] OF [place] NON HDL CHOL, NF 133 mg/dL High <130 [facility] Comment on above: Order Comment: Speci men Type: BLOOD SPECIMENOrdering Facility: [facility] Address: [address] [place] [address] Result Comment: <130 mg/dL, Optimal 130-159 mg/dL, Near optimal/above optimal 160-189 mg/dL, Borderline high 190-219 mg/dL, High >219 mg/dL, Very high Secondary prevention optimal non HDL Cholesterol levels are recommended to be <100 mg/dL Performed By: #### L IPNF, 14505-5 ####[facility] LABCLIA [id number] [place] [address] [place] T CHOL/HDL RATIO NF 4.59 mg/dL Normal <5.10 [facility] Comment on above: Order Comment: Speci men Type: BLOOD SPECIMENOrdering Facility: [facility] Address: [address] [place] [address] Performed By: #### L IPNF, 62880-7 ####[facility] LABCLIA [id number] [place] [address] [place] TRIGLYCERIDES, NF 216 mg/dL High <150 [facility] Comment on above: Order Comment: Speci men Type: BLOOD SPECIMENOrdering Facility: [facility] Address: [address] [place] [address] Result Comment: <150 mg/dL, Normal 150-199 mg/dL, Borderline high 200-499 mg/dL, High >499 mg/dL, Very high Performed By: #### L IPNF, 50536-8 ####[facility] LABCLIA [id number] [place] [address] [place] VLDL CHOLESTEROL, NF 35 mg/dL High <30 [facility] Comment on above: Order Comment: Speci men Type: BLOOD SPECIMENOrdering Facility: [facility] Address: [address] [place] [address] Performed By: #### L IPNF, 80287-1 ####[facility] LABCLIA [id number] [place] [address] [place] Abdomen Single Viewon 2024 Abdomen Single View [facility] Services [address] [place] [address] Abdomen Single View MR#: [id number] Acct: [id number] Name: ARVIND DOMÍNGUEZ Rep #: [id number] : 1975 M 49 From: Jey Forrest MD PCP: SEBASTIÁN PatelC Status: REG CLI Study: Abdomen Single View Date of Exam: 02/11/25 Exam# [id number] Ordering Dr: Sariah Mcdonald PROCEDURE: ABDOMEN SINGLE VIEW 02/11/2025 REASON FOR EXAM: ABD PAIN TECHNIQUE: Procedure Code: RADABD Modality: DX Procedure: ABDOMEN SINGLE VIEW COMPARISON: None. FINDINGS: There is a nonobstructive bowel gas pattern. There are no abnormal soft tissue calcifications or radiopaque foreign bodies. There are no significant bony abnormalities. RAD/Abdomen Single View IMPRESSION: NO ACUTE FINDINGS Reading Location: [id number] CC: TOOLMAKER GRADE THREE-C Niraj Andino; ANTHONY Matthews Panel Fitter: Signed Normal [facility] Gastroenterology Visit Repor ton 02-11-2025 Gastroenterology Visit Report [facility] Gastroenterology [address] [place] [address] OFFICE VISIT Date of Service: 02/11/25 MR#: [id number] Acct: [id number] Name: ARVIND DOMÍNGUEZ Rep #: [id number] : 1975 Provider: ANTHONY Matthews Age/Sex: 49/M [place] [facility] Status: Signed Intake Vital Signs 12/09/24 14:18 Height 6 ft 1 in Intake Visit Reasons: ABDOMINAL PAIN LOOSE STOOL Chief Complaint: abd pain Allergies No Known Allergies Allergy (Verified 12/09/24 14:20) Medications ???Medication ???Instructions ???Recorded ???Confirmed ???Type ferrous sulfate 220 mg (44 mg 325.6 mg PO .COMPLEX 06/17/2401/19 History iron)/5 mL oral solution mirtazapine 15 mg disintegrating 15 mg PO DAILY 06/17/24 02/11/25 H istory tablet esomeprazole magnesium 40 mg 40 mg PO QDAY #30 ea 09/03/2401/19 Rx granules delayed release for susp ascorbic acid (vitamin C) 500 mg 1 g PO DAILY 12/09/24 02/11/25 His tory chewable tablet (Acerola C) atorvastatin 20 mg/5 mL (4 mg/mL) 20 mg PO DAILY 12/09/24 02/11/25 History oral suspension (AtorvaliQ) calcium citrate 760 mg PO DAILY 12/09/24 02/11/25 History ergocalciferol (vitamin D2) 1,250 1,250 mcg PO QWEEK 12/09/2402/11 History mcg (50,000 unit) capsule levocetirizine 2.5 mg/5 mL oral 2.5 mg PO DAILY 12/09/24 02/11/25 History solution (Xyzal) magnesium 250 mg tablet 250 mg PO DAILY 12/09/24 02/11/25 History mecobalamin (vitamin B12) 1,000 1,000 mcg PO DAILY 12/09/24 History mcg chewable tablet olanzapine 15 mg disintegrating 15 mg PO DAILY 12/09/24 02/11/25 H istory tablet pedi nutrition,iron,lact-free 5 1 ea PO DAILY 12/09/24 02/11/25 Hi story gram-180 kcal/36 gram oral powder (Else MODIZY.COMler O-film) [facility] Medical History Rash Low iron Non-smoker Schizophrenia GERD (gastroesophageal reflux disease) Autism Surgical History History of esophagogastroduodenoscopy (EGD) Family History Mother Lung cancer Heart disease Father Lung cancer Social History household members: family Smoking Status: Never smoker HPI HPI Chief Complaint: abd pain Details: ARVIND DOMÍNGUEZ, is a 49 M who presents to the office today for follow-up. BGI established 04.14.24 with epigastric pain and [...] treated with PPI, Clarithromycin and amoxicillin OV 4.02.11: Pt continues with intermittent abd pain. He did finish his course of antibiotics but discontinued PPI as his sister did not feel it was helping. He has loose stools frequently and constipation on occasion. His sister also mentions he has had elevated liver enzymes over the past few months. OV 02.11.25 patient having loose stool every other day. He is not having any formed stools. Patient has been pointing to his abdomen and has not been wanting to go to [facility]. Patient's guardian feels like he is having abdominal pain. He has had a loss of appetite but he does have a tooth infection right now. ROS Const Constitutional: No fatigue, fever(s) or [...] joint pain Skin Skin: Positive for dry skin and itchy eyes; No yellowing of the eye Psych Psychiatric: No anxiety, No depression and Positive for Compulsive Behavior Endo Endocrine: No fatigue or weight change Aller/Imm Allergy/Immunologic: Positive for itchy eyes Estrada/Lymp Hematologic/Lymphatic: No easy bleeding or easy bruising Exam Const General: cooperative and comfortable Orientation: alert HENWI Head: normal to inspection Ears: hearing grossly normal bilaterally Nose: external nose normal Face and sinus: normal facial exam Eyes General: appearance normal, both eyes and all related structures Neck Neck: normal visual inspection Chest Chest palpation inspection: normal inspection of the chest Resp Effort Inspecti (more content not included)... Normal [facility] ARVIND DOMÍNGUEZ ([id number]) 1975 M GRD Date Time Provider Department 01/14/25 NIRAJ ANDINO [facility] During your visit today, we recorded [...] Negative Negative Ketones, Urine Negative Negative Specific Seth, Ur 1.005 - 1.030 1.020 Hemoglobin/Blood,Ur Negative [...] have the urine culture report back. Michelle Tijerina, SAMANTA 01/15/2025 12:47 PM Signed See Telephone Encounter [...] (FLONASE) 50 mcg/actuation nasal spray Use 1 Sabine in each nostril once daily. - OLANZapine orally disintegrating (ZYPREXA ZYDIS) 5 mg disintegrating tablet Take 5 mg by mouth daily at bedtime. - Nutritional Supplements (ENSURE PUDDING) pudg Take 113 g by mouth twice daily. Problem List As Of Date: 01/14/2025 (None) Encounter Status:Closed by MICHELLE TIJERINA on 01/15/25 Normal [facility] Bacteria Ur Culton Bacteria identified Cx Nom (U) CULTURE, URINE: Mixed microbiota, including predominantly: ORGANISM ID: 1 10,000 -<50,000 CFU/ml Streptococcus agalactiae (group b streptococcus) Susceptibility testing not performed on beta hemolytic streptococci due to predictable susceptibility to penicillin and other beta lactams. For testing, call Microbiology within 72 hours. Normal [facility] Comment on above: Performed By: #### 6 30-4 ####[facility] LABCLIA [id number] [place] [address] [place] Urinalysis complete panel (U )on 01-13-2025 Bacteria LM.HPF (Urine sed) [#/Area] Negative Normal Negative [facility] Comment on above: Order Comment: Speci men Type: URINE SPECIMENOrdering Facility: [facility] Address: [address] [place] [address] Performed By: #### 2 4356-8 ####[facility] LABCLIA [id number] [address], [facility] [place] Bilirubin Ql (U) Negative Normal Negative [facility] Comment on above: Order Comment: Speci men Type: URINE SPECIMENOrdering Facility: [facility] Address: [address] [place] [address] Performed By: #### 2 4356-8 ####[facility] LABCLIA [id number] [place] [address] [place] Clarity (Unsp spec) Clear Normal Clear [facility] Comment on above: Order Comment: Speci men Type: URINE SPECIMENOrdering Facility: [facility] Address: [address] [place] [address] Performed By: #### 2 4356-8 ####[facility] LABCLIA [id number] [place] [address] [place] Color (U) Yellow Normal Yellow [facility] Comment on above: Order Comment: Speci men Type: URINE SPECIMENOrdering Facility: [facility] Address: [address] [place] [address] Performed By: #### 2 4356-8 ####[facility] LABCLIA [id number] [place] [id number] [place] Epithelial cells LM.HPF (Urine sed) [#/Area] None Seen Normal [facility] Comment on above: Order Comment: Speci men Type: URINE SPECIMENOrdering Facility: [facility] Address: [address] [place] [address] Performed By: #### 2 4356-8 ####[facility] LABCLIA [id number] [place] [id number] [place] Glucose Test strip (U) [Mass/Vol] Negative Normal Negative [facility] Comment on above: Order Comment: Speci men Type: URINE SPECIMENOrdering Facility: [facility] Address: [address] [place] [address] Performed By: #### 2 4356-8 ####[facility] LABCLIA [id number] [address] [place] [address] [place] Hemoglobin Ql (U) Negative Normal Negative [facility] Comment on above: Order Comment: Speci men Type: URINE SPECIMENOrdering Facility: [facility] Address: [address] [place] [address] Performed By: #### 2 4356-8 ####[facility] LABCLIA [id number] [place] [address] [place] Hyaline casts (Urine sed) [#/Area] 1-3 /LPF Abnormal 0 /LPF [facility] Comment on above: Order Comment: Speci men Type: URINE SPECIMENOrdering Facility: [facility] Address: [address] [place] [address] Performed By: #### 2 4356-8 ####[facility] LABCLIA [id number] [place] [address] [place] Ketones Ql (U) Negative Normal Negative [facility] Comment on above: Order Comment: Speci men Type: URINE SPECIMENOrdering Facility: [facility] Address: [address] [place] [address] Performed By: #### 2 4356-8 ####[facility] LABCLIA [id number] [address], [facility] [place] Leukocyte esterase Test strip Ql (U) 1+ Abnormal Negative [facility] Comment on above: Order Comment: Speci men Type: URINE SPECIMENOrdering Facility: [facility] Address: [address] [place] [address] Performed By: #### 2 4356-8 ####[facility] LABCLIA [id number] [place] [address] [place] Nitrite Ql (U) Negative Normal Negative [facility] Comment on above: Order Comment: Speci men Type: URINE SPECIMENOrdering Facility: [facility] Address: [address] [place] [address] Performed By: #### 2 4356-8 ####[facility] LABCLIA [id number] [place] [address] [place] pH (U) 6.5 [pH] Normal 5.0-8.0 [facility] Comment on above: Order Comment: Speci men Type: URINE SPECIMENOrdering Facility: [facility] Address: [address] [place] [address] Performed By: #### 2 4356-8 ####[facility] LABCLIA [id number] [place] [address] [place] Protein (U) [Mass/Vol] Negative Normal Negative [facility] Comment on above: Order Comment: Speci men Type: URINE SPECIMENOrdering Facility: [facility] Address: [address] [place] [address] Performed By: #### 2 4356-8 ####[facility] LABIA [id number] [place] [address] [place] RBC LM.HPF (Urine sed) [#/Area] 0-2 /HPF Normal 0-2 /HPF [facility] Comment on above: Order Comment: Speci men Type: URINE SPECIMENOrdering Facility: [facility] Address: [address] [place] [address] Performed By: #### 2 4356-8 ####[facility] LABIA [id number] [place] [address] [place] Specific gravity (U) [Rel density] 1.020 Normal 1.005-1.03 0 [facility] Comment on above: Order Comment: Speci men Type: URINE SPECIMENOrdering Facility: [facility] Address: [address] [place] [address] Performed By: #### 2 4356-8 ####[facility] LABIA [id number] [place] [address] [place] Urobilinogen Ql (U) 1.0 EU/dL Normal 0.2-1.0 EU/dL [facility] Comment on above: Order Comment: Speci men Type: URINE SPECIMENOrdering Facility: [facility] Address: [address] [place] [address] Performed By: #### 2 4356-8 ####[facility] LABIA [id number] [place] [address] [place] WBC LM.HPF (Urine sed) [#/Area] 0-5 /HPF Normal 0-5 /HPF [facility] Comment on above: Order Comment: Speci men Type: URINE SPECIMENOrdering Facility: [facility] Address: [address] [place] [address] Performed By: #### 2 4356-8 ####[facility] [id number] [address] [place] CNOVon 01-12-2025 CNOV Office Visit ([facility] ) ARVIND DOMÍNGUEZ ([id number]) 1975 M GRD Date Time Provider Department 01/12/25 10:00 AM [facility] During your visit today, we recorded the [...] (FLONASE) 50 mcg/actuation nasal spray Use 1 Sabine in each nostril once daily. OLANZapine orally disintegrating (ZYPREXA ZYDIS) 5 mg disintegrating tablet Take 5 mg by mouth daily at bedtime. Nutritional Supplements (ENSURE PUDDING) pudg Take 113 g by mouth twice daily. clarithromycin (BIAXIN) 250 mg tablet Take by mouth two times a day. Friend (Patient not taking: Reported on 01/12/2025) No [...] on 12/18 (more content not included)... Normal [facility] HIGH SENSITIVITY TROPONIN T (THIRD) 3 HRS AFTER INITIALon 12-19-2024 Troponin T.cardiac High sensitivity method [Mass/Vol] 13 ng/L High <12 [facility] Comment on above: Order Comment: Speci men Type: BLOOD SPECIMEN [facility] Address: [facility] [place] [address] Performed By: #### L [id number] #### [facility] CLIA [id number] [address] [place] CBC W Auto Differential pane l (Bld)on 12-18-2024 Basophils (Bld) [#/Vol] 0.04 10*3/uL Normal <0.11 [facility] Comment on above: Order Comment: Speci men Type: BLOOD SPECIMEN [facility] Address: [address] [place] [address] Performed By: #### 5 7021-8 #### [facility] CLIA [id number] [address] [place] Basophils/100 WBC (Bld) 0.5 % Normal [facility] Comment on above: Order Comment: Speci men Type: BLOOD SPECIMEN [facility] Address: [address] [place] [address] Performed By: #### 5 7021-8 #### [facility] CLIA [id number] [address] STATES [facility] Differential cell count method Nom (Bld) Auto Normal [facility] Comment on above: Order Comment: Speci men Type: BLOOD SPECIMEN [facility] Address: [address] [place] [address] Performed By: #### 5 7021-8 #### [facility] CLIA [id number] [address] [place] [address] [place] Eosinophils (Bld) [#/Vol] 0.66 10*3/uL High <0.46 [facility] Comment on above: Order Comment: Speci men Type: BLOOD SPECIMEN [facility] Address: [address] [place] [address] Performed By: #### 5 7021-8 #### [facility] CLIA [id number] [address] [place] Eosinophils/100 WBC (Bld) 8.0 % Normal [facility] Comment on above: Order Comment: Speci men Type: BLOOD SPECIMEN [facility] Address: [address] [place] [address] Performed By: #### 5 7021-8 #### [facility] CLIA [id number] [address] Erythrocyte distribution width (RBC) [Ratio] 13.2 % Normal 11.5-15.0 [facility] Comment on above: Order Comment: Speci men Type: BLOOD SPECIMEN [facility] Address: [address] [place] [address] Performed By: #### 5 7021-8 #### [facility] CLIA [id number] [address] Hematocrit (Bld) [Volume fraction] 42.9 % Normal 39.0-51.0 [facility] Comment on above: Order Comment: Speci men Type: BLOOD SPECIMEN [facility] Address: [address] [place] [address] Performed By: #### 5 7021-8 #### [facility] CLIA [id number] [address] [place] Hemoglobin (Bld) [Mass/Vol] 13.7 g/dL Normal 13.0-17.0 [facility] Comment on above: Order Comment: Speci men Type: BLOOD SPECIMEN [facility] Address: [address] [place] [address] Performed By: #### 5 7021-8 #### [facility] CLIA [id number] [address] [place] Immature granulocytes (Bld) [#/Vol] 10*3/uL Normal <0.10 [facility] Comment on above: Order Comment: Speci men Type: BLOOD SPECIMEN [facility] Address: [address] [place] [address] Performed By: #### 5 7021-8 #### [facility] CLIA [id number] [address] Immature granulocytes/100 WBC (Bld) 0.2 % Normal [facility] Comment on above: Order Comment: Speci men Type: BLOOD SPECIMEN [facility] Address: [address] [place] [address] Performed By: #### 5 7021-8 #### [facility] CLIA [id number] [address] [place] Lymphocytes (Bld) [#/Vol] 2.31 10*3/uL Normal 1.00-4.00 [facility] Comment on above: Order Comment: Speci men Type: BLOOD SPECIMEN [facility] Address: [address] [place] [address] Performed By: #### 5 7021-8 #### [facility] CLIA [id number] [address] Lymphocytes/100 WBC (Bld) 28.0 % Normal [facility] Comment on above: Order Comment: Speci men Type: BLOOD SPECIMEN [facility] Address: [address] [place] [address] Performed By: #### 5 7021-8 #### [facility] CLIA [id number] [address] MCH (RBC) [Entitic mass] 27.5 pg Normal 26.0-34.0 [facility] Comment on above: Order Comment: Speci men Type: BLOOD SPECIMEN [facility] Address: [address] [place] [address] Performed By: #### 5 7021-8 #### [facility] CLIA [id number] [address] MCHC (RBC) [Mass/Vol] 31.9 g/dL Normal 30.5-36.0 [facility] Comment on above: Order Comment: Speci men Type: BLOOD SPECIMEN [facility] Address: [address] [place] [address] Performed By: #### 5 7021-8 #### [facility] CLIA [id number] [address] [place] [address] [place] MCV (RBC) [Entitic vol] 86.0 fL Normal 80.0-100.0 [facility] Comment on above: Order Comment: Speci men Type: BLOOD SPECIMEN [facility] Address: [address] [place] [address] Performed By: #### 5 7021-8 #### [facility] CLIA [id number] [address] [place] [address] [place] Monocytes (Bld) [#/Vol] 0.81 10*3/uL Normal <0.87 [facility] Comment on above: Order Comment: Speci men Type: BLOOD SPECIMEN [facility] Address: [address] [place] [address] Performed By: #### 5 7021-8 #### [facility] CLIA [id number] [address] [place] Monocytes/100 WBC (Bld) 9.8 % Normal [facility] Comment on above: Order Comment: Speci men Type: BLOOD SPECIMEN Ordering Facility: [facility] Address: [address] [place] [address] Performed By: #### 5 7021-8 #### [facility] CLIA [id number] [address] [place] [address] [place] Neutrophils (Bld) [#/Vol] 4.42 10*3/uL Normal 1.45-7.50 [facility] Comment on above: Order Comment: Speci men Type: BLOOD SPECIMEN Ordering Facility: [facility] Address: [address] [place] [address] Performed By: #### 5 7021-8 #### [facility] CLIA [id number] [address] [place] [address] [place] Neutrophils/100 WBC (Bld) 53.5 % Normal [facility] Comment on above: Order Comment: Speci men Type: BLOOD SPECIMEN Ordering Facility: [facility] Address: [address] [place] [address] Performed By: #### 5 7021-8 #### [facility] CLIA [id number] [address] [place] [address] [place] Nucleated RBC (Bld) [#/Vol] 10*3/uL Normal <0.01 [facility] Comment on above: Order Comment: Speci men Type: BLOOD SPECIMEN Ordering Facility: [facility] Address: [address] [place] [address] Performed By: #### 5 7021-8 #### [facility] CLIA [id number] [address] [place] [address] [place] Nucleated RBC/100 WBC (Bld) [Ratio] 0.0 /100 WBC Normal [facility] Comment on above: Order Comment: Speci men Type: BLOOD SPECIMEN Ordering Facility: [facility] Address: [address] [place] [address] Performed By: #### 5 7021-8 #### [facility] CLIA [id number] [address] [place] [address] [place] Platelet mean volume (Bld) [Entitic vol] 11.0 fL Normal 9.0-12.7 [facility] Comment on above: Order Comment: Speci men Type: BLOOD SPECIMEN Ordering Facility: [facility] Address: [address] [place] [address] Performed By: #### 5 7021-8 #### [facility] CLIA [id number] [address] [place] [address] [place] Platelets (Bld) [#/Vol] 210 10*3/uL Normal 150-400 [facility] Comment on above: Order Comment: Speci men Type: BLOOD SPECIMEN Ordering Facility: [facility] Address: [address] [place] [address] Performed By: #### 5 7021-8 #### [facility] CLIA [id number] [address] [place] [address] [place] RBC (Bld) [#/Vol] 4.99 10*6/uL Normal 4.20-6.00 [facility] Comment on above: Order Comment: Speci men Type: BLOOD SPECIMEN Ordering Facility: [facility] Address: [address] [place] [address] Performed By: #### 5 7021-8 #### [facility] CLIA [id number] [address] [place] WBC (Bld) [#/Vol] 8.26 10*3/uL Normal 3.70-11.00 [facility] Comment on above: Order Comment: Speci men Type: BLOOD SPECIMEN Ordering Facility: [facility] Address: [address] [place] [address] Performed By: #### 5 7021-8 #### [facility] CLIA [id number] [address] [place] Comprehensive metabolic 2000 panelon 12-18-2024 Albumin [Mass/Vol] 4.8 g/dL Normal 3.9-4.9 [facility] Comment on above: Order Comment: Speci men Type: BLOOD SPECIMEN Ordering Facility: [facility] Address: [address] [place] [address] Performed By: #### 3 3762-6, 33364-7, 70554-9, [id number] #### [facility] CLIA [id number] [address] [place] [address] [place] ALP [Catalytic activity/Vol] 235 U/L High 38-113 [facility] Comment on above: Order Comment: Speci men Type: BLOOD SPECIMEN Ordering Facility: [facility] Address: [address] [place] [address] Performed By: #### 3 3762-6, 78900-4, 32572-7, [id number] #### [facility] CLIA [id number] [address] [place] ALT [Catalytic activity/Vol] 27 U/L Normal 10-54 [facility] Comment on above: Order Comment: Speci men Type: BLOOD SPECIMEN Ordering Facility: [facility] Address: [address] [place] [address] Performed By: #### 3 3762-6, 46881-6, 92327-5, [id number] #### [facility] CLIA [id number] [address] [place] [address] [place] Anion gap [Moles/Vol] 11 mmol/L Normal 8-15 [facility] Comment on above: Order Comment: Speci men Type: BLOOD SPECIMEN Ordering Facility: [facility] Address: [address] [place] [address] Performed By: #### 3 3762-6, 15864-3, 70439-4, [id number] #### [facility] CLIA [id number] [address] [place] [address] [place] AST [Catalytic activity/Vol] 26 U/L Normal 14-40 [facility] Comment on above: Order Comment: Speci men Type: BLOOD SPECIMEN Ordering Facility: [facility] Address: [address] [place] [address] Performed By: #### 3 3762-6, , 97322-9, [id number] #### [facility] CLIA [id number] [address] [place] [address] [place] Bilirubin [Mass/Vol] 0.4 mg/dL Normal 0.2-1.3 [facility] Comment on above: Order Comment: Speci men Type: BLOOD SPECIMEN Ordering Facility: [facility] Address: [address] [place] [address] Performed By: #### 3 3762-6, 79724-9, 28895-6, [id number] #### [facility] CLIA [id number] [address] [place] [address] [place] Calcium [Mass/Vol] 9.7 mg/dL Normal 8.5-10.2 [facility] Comment on above: Order Comment: Speci men Type: BLOOD SPECIMEN Ordering Facility: [facility] Address: [address] [place] [address] Performed By: #### 3 3762-6, 21061-3, 90477-9, [id number] #### [facility] CLIA [id number] [address] [place] [address] [place] Chloride [Moles/Vol] 102 mmol/L Normal 98-107 [facility] Comment on above: Order Comment: Specranjith men Type: BLOOD SPECIMEN Ordering Facility: [facility] Address: [address] [place] [address] Performed By: #### 3 3762-6, 35361-4, 07093-4, [id number] #### [facility] CLIA [id number] [address] [place] [address] [place] CO2 [Moles/Vol] 26 mmol/L Normal 22-30 [facility] Comment on above: Order Comment: Speci men Type: BLOOD SPECIMEN Ordering Facility: [facility] Address: [address] [place] [address] Performed By: #### 3 3762-6, 89840-4, 40499-6, [id number] #### [facility] CLIA [id number] [address] [place] [address] [place] Creatinine [Mass/Vol] 0.99 mg/dL Normal 0.73-1.22 [facility] Comment on above: Order Comment: Speci men Type: BLOOD SPECIMEN Ordering Facility: [facility] Address: [address] [place] [address] Performed By: #### 3 3762-6, 50417-5, 41991-3, [id number] #### [facility] CLIA [id number] [address] [place] eGFRcr SerPlBld CKD-EPI 2020 94 mL/min/1.73m??? Normal >=60 [facility] Comment on above: Order Comment: [place] men Type: BLOOD SPECIMEN Ordering Facility: [facility] Address: [address] [place] [address] Result Comment: Rashida mated Glomerular Filtration Rate [...] actual GFR. Performed By: #### 3 3762-6, 40116-8, 27395-1, [id number] #### [facility] CLIA [id number] [address] [place] [address] [place] Glucose [Mass/Vol] 98 mg/dL Normal 74-99 [facility] Comment on above: Order Comment: [place] roy Type: BLOOD SPECIMEN Ordering Facility: [facility] Address: [address] [place] [address] Result Comment: The [place] [employer] (ADA) provides guidance for cutoff [...] Standards of Medical Care in Diabetes 2016, [place] [employer]. Diabetes Care. 2016.39(Suppl 1). Performed By: #### 3 3762-6, 08183-9, 95118-9, [id number] #### [facility] CLIA [id number] [address] [place] [address] [place] Potassium [Moles/Vol] 4.1 mmol/L Normal 3.7-5.1 [facility] Comment on above: Order Comment: [place] roy Type: BLOOD SPECIMEN Ordering Facility: [facility] Address: [address] [place] [address] Performed By: #### 3 3762-6, 84137-4, 86671-2, [id number] #### [facility] CLIA [id number] [address] [place] [address] [place] Protein [Mass/Vol] 8.4 g/dL High 6.3-8.0 [facility] Comment on above: Order Comment: [place] roy Type: BLOOD SPECIMEN Ordering Facility: [facility] Address: [address] [place] [address] Performed By: #### 3 3762-6, 52841-6, 75999-5, [id number] #### [facility] CLIA [id number] [address] [place] [address] [place] Sodium [Moles/Vol] 139 mmol/L Normal 136-144 [facility] Comment on above: Order Comment: Speci men Type: BLOOD SPECIMEN Ordering Facility: [facility] Address: [address] [place] [address] Performed By: #### 3 3762-6, 87120-1, 22564-6, [id number] #### [facility] CLIA [id number] [address] [place] [address] [place] Urea nitrogen [Mass/Vol] 19 mg/dL Normal 9-24 [facility] Comment on above: Order Comment: Speci men Type: BLOOD SPECIMEN Ordering Facility: [facility] Address: [address] [place] [address] Performed By: #### 3 3762-6, 85985-8, 65760-9, [id number] #### [facility] CLIA [id number] [address] [place] [address] [facility] ED PROV NOTEon 12-18-2024 ED PROV NOTE HNO ID: [id number] Author: CADY WALDRON DO Service: Emergency Medicine [...] 12/19/24 0624 Cady Waldron's Documentation SatDec 18, 2024 302 Initial and repeat troponin is 12 2350 [...] Repeat HST 13, he rules out for [place]. Pt's sister updated with results. I do not feel he requires admission. He has not been hypoxic in the ED. VSS. The attending who evaluated and managed this patient was Cady Waldron . History and Flakito (more content not included)... Normal [facility] EKGon 12-18-2024 Electrocardiogram Ventricular Rate : 6 7 BPM Atrial Rate : 67 BPM P-R Interval : 168 ms QRS Duration : 86 ms Q-T Interval : 376 ms QTC Calculation(Bazett) : 397 ms Calculated P Pooler : 38 degrees Calculated R Pooler : 56 degrees Calculated T Pooler : 57 degrees NORMAL SINUS RHYTHM NORMAL ECG No Stemi Confirmed by RAMONITA PEREZ MD ([id number]) on 12/18/2024 9:53:10 PM NAME : ARVIND DOMÍNGUEZ PID : [id number] : 1975 Gender : Male Race : ORD : Procedure Date : Dec 18 2024 21:32:10 Edit Date : Dec 18 2024 21:53:14 Diagnosis: NORMAL SINUS RHYTHM NORMAL ECG No Stemi Confirmed by RAMONITA PEREZ MD ([id number]) on 12/18/2024 9:53:10 PM Test Reason : Location : 1 : ER ED Overread By : RAMONITA PEREZ MD Edited By : RAMONITA PEREZ MD Referred By : , Acquired by : al, [facility] HIGH SENSITIVITY TROPONIN T (INITIAL)on 12-18-2024 Troponin T.cardiac High sensitivity method [Mass/Vol] 12 ng/L High <12 [facility] Comment on above: Order Comment: [place] roy Type: BLOOD SPECIMEN Ordering Facility: [facility] Address: [address] [place] [address] Performed By: #### 3 3762-6, 48721-8, 31506-7, [id number] #### [facility] CLIA [id number] [address] HIGH SENSITIVITY TROPONIN T (SECOND)on 12-18-2024 Troponin T.cardiac High sensitivity method [Mass/Vol] 12 ng/L High <12 [facility] Comment on above: Order Comment: [place] roy Type: BLOOD SPECIMEN Ordering Facility: [facility] Address: [address] [place] [address] Performed By: #### L [id number] #### [facility] CLIA [id number] [address] [place] Magnesium SerPl-mCncon 12-18 Magnesium [Mass/Vol] 2.3 mg/dL Normal 1.7-2.3 [facility] Comment on above: Order Comment: [place] roy Type: BLOOD SPECIMEN Ordering Facility: [facility] Address: [address] [place] [address] Performed By: #### 3 3762-6, 64035-6, 53639-9, [id number] #### [facility] CLIA [id number] [address] [place] NT-proBNP SerPl-mCncon 12-18 Natriuretic peptide.B prohormone N-Terminal [Mass/Vol] <36 Normal <125 [facility] Comment on above: Order Comment: [place] roy Type: BLOOD SPECIMEN Ordering Facility: [facility] Address: [address] [place] [address] Performed By: #### 3 3762-6, 10005-0, 17453-0, [id number] #### [facility] CLIA [id number] [address] [place] [address] [place] XR CHEST 1V FRONTAL PORTon [...] cardiomediastinal silhouette. IMPRESSION: No acute radiographic abnormality. Panel Fitter: PSCMichell Transcribe Date/Time: Dec 18 2024 10:45P Dictated by : MARLON GUTIERREZ MD This examination was interpreted and the report reviewed and electronically signed by: MARLON GUTIERREZ MD on Dec 18 2024 10:46PM EST [id number] Normal [facility] Absolute lymphocyte countOrd ered By: Marcus Delatorre on 12-09-2024 Lymphocytes Auto (Unsp spec) [#/Vol] 1.35 10*3/uL 0.83-4.51 [facility] Absolute neutrophil countOrd ered By: Marcus Delatorre on 12-09-2024 Neutrophils (Bld) [#/Vol] 5.3 10*3/uL 2.0-7.7 [facility] Anion gap in Serum or Plasma Ordered By: Marcus Delatorre on 12-09-2024 Anion gap [Moles/Vol] 11 mmol/L 5-15 [facility] Automated lymphocyte count a s percentage of total leukocytesOrdered By: Marcus Delatorre on 12-09-2024 Lymphocytes/100 WBC Auto (Unsp spec) 17.7 % Low 19-41 [facility] BUN/creatinine ratioOrdered By: Marcus Delatorre on 12-09-2024 Urea nitrogen/Creatinine [Mass ratio] 16.8 mg/mg - [facility] Basic Metabolic Profile (BMP )on 12-09-2024 BUN/CRE 16.8 RATIO Normal - [facility] Comment on above: Performed By: #### L 100.0100, L500.2500 #### [facility] Laboratory [address] [place], [address] Calcium [Mass/Vol] 9.6 mg/dL Normal 7.6-11.0 [facility] Comment on above: Performed By: #### L 100.0100, L500.2500 #### [facility] Laboratory [address] [place], [address] Chloride [Moles/Vol] 104 mmol/L Normal 98-108 [facility] Comment on above: Performed By: #### L 100.0100, L500.2500 #### [facility] Laboratory [address] [place], [address] CO2 [Moles/Vol] 21.7 mmol/L Normal 21.0-32.0 [facility] Comment on above: Performed By: #### L 100.0100, L500.2500 #### [facility] Laboratory [address] [place], [address] Creatinine [Mass/Vol] 0.85 mg/dL Normal 0.70-1.20 [facility] Comment on above: Performed By: #### L 100.0100, L500.2500 #### [facility] Laboratory [address] [place], [address] ECRCL 110.26 ml/min Normal 50-250 [facility] Comment on above: Performed By: #### L 100.0100, L500.2500 #### [facility] Laboratory [address] [place], [address] GAP 11 Normal 5-15 [facility] Comment on above: Performed By: #### L 100.0100, L500.2500 #### [facility] Laboratory [address] [place], [address] GFR/1.73 sq M.predicted among non-blacks MDRD (S/P/Bld) [Vol rate/Area] 107 mL/min/{1.73_m2} Normal >60 [facility] Comment on above: Result Comment: mL/m in/1.73m2 CKD-EPI Creatinine Equation (2020) Performed By: #### L 100.0100, L500.2500 #### [facility] Laboratory [address] [place], [address] Glucose [Mass/Vol] 139 mg/dL High 70-99 [facility] Comment on above: Performed By: #### L 100.0100, L500.2500 #### [facility] Laboratory [address] [place], [address] Potassium [Moles/Vol] 4.3 mmol/L Normal 3.3-5.1 [facility] Comment on above: Performed By: #### L 100.0100, L500.2500 #### [facility] Laboratory [address] [place], [address] Sodium [Moles/Vol] 137 mmol/L Normal 133-145 [facility] Comment on above: Performed By: #### L 100.0100, L500.2500 #### [facility] Laboratory [address] [place], [address] Urea nitrogen [Mass/Vol] 14 mg/dL Normal 4-19 [facility] Comment on above: Performed By: #### L 100.0100, L500.2500 #### [facility] Laboratory [address] [place], [address] Basophil percentageOrdered B y: Marcus Delatorre on 12-09-2024 Basophils/100 WBC (Bld) 0.3 % 0-1 [facility] Bilirubin Test strip Ql (U)O rdered By: Marcus Delatorre on 12-09-2024 Bilirubin Ql (U) Negative Negative [facility] CBC W/Diff, Automatedon 11-18 Absolute Lymph 1.35 X10 3/uL Normal 0.83-4.51 [facility] Comment on above: Performed By: #### L 100.0100, L500.2500 #### [facility] Laboratory [address] [place], [address] Absolute Neut 5.3 X10 3/uL Normal 2.0-7.7 [facility] Comment on above: Performed By: #### L 100.0100, L500.2500 #### [facility] Laboratory [address] [place], [address] Basophils/100 WBC (Bld) 0.3 % Normal 0-1 [facility] Comment on above: Performed By: #### L 100.0100, L500.2500 #### [facility] Laboratory [address] [place], [address] Eosinophils/100 WBC (Bld) 3.5 % Normal 0-5 [facility] Comment on above: Performed By: #### L 100.0100, L500.2500 #### [facility] Laboratory [address] [place], [address] Erythrocyte distribution width (RBC) [Ratio] 13.2 % Normal 11.6-14.6 [facility] Comment on above: Performed By: #### L 100.0100, L500.2500 #### [facility] Laboratory [address] [place], [address] Hematocrit (Bld) [Volume fraction] 42.3 % Normal 40-54 [facility] Comment on above: Performed By: #### L 100.0100, L500.2500 #### [facility] Laboratory [address] [place], [address] Hemoglobin (Bld) [Mass/Vol] 13.8 g/dL Normal 13.0-16.5 [facility] Comment on above: Performed By: #### L 100.0100, L500.2500 #### [facility] Laboratory [address] [place], [address] IG% 0.400 Normal 0.0-0.9 [facility] Comment on above: Result Comment: IG% - Immature Granulocytes (promyelocytes, myelocytes and metamyelocytes) > 1% indicates that a LEFT SHIFT is Present. Performed By: #### L 100.0100, L500.2500 #### [facility] Laboratory [address] [place], [address] Lymphocytes/100 WBC (Bld) 17.7 % Low 19-41 [facility] Comment on above: Performed By: #### L 100.0100, L500.2500 #### [facility] Laboratory [address] [place], [address] MCH (RBC) [Entitic mass] 27.7 pg Normal 27.0-32.0 [facility] Comment on above: Performed By: #### L 100.0100, L500.2500 #### [facility] Laboratory [address] [place], [address] MCHC (RBC) [Mass/Vol] 32.6 g/dL Normal 32-36 [facility] Comment on above: Performed By: #### L 100.0100, L500.2500 #### [facility] Laboratory [address] [place], [address] MCV (RBC) [Entitic vol] 84.9 fL Normal 80-94 [facility] Comment on above: Performed By: #### L 100.0100, L500.2500 #### [facility] Laboratory [address] [place], [address] Monocytes/100 WBC (Bld) 8.0 % Normal 0-10 [facility] Comment on above: Performed By: #### L 100.0100, L500.2500 #### [facility] Laboratory [address] [place], [address] Neutrophils/100 WBC (Bld) 70.1 % High 47-70 [facility] Comment on above: Performed By: #### L 100.0100, L500.2500 #### [facility] Laboratory [address] [place], [address] Nucleated RBC (Bld) [#/Vol] 0 10*3/uL Normal 0-5 [facility] Comment on above: Performed By: #### L 100.0100, L500.2500 #### [facility] Laboratory [address] [place], [address] Platelet mean volume (Bld) [Entitic vol] 11.3 fL Normal 6.2-12.0 [facility] Comment on above: Performed By: #### L 100.0100, L500.2500 #### [facility] Laboratory [address] [place], [address] Platelets (Bld) [#/Vol] 227 10*3/uL Normal 150-450 [facility] Comment on above: Performed By: #### L 100.0100, L500.2500 #### [facility] Laboratory [address] [place], [address] RBC (Bld) [#/Vol] 4.98 10*6/uL Normal 4.6-6.2 [facility] Comment on above: Performed By: #### L 100.0100, L500.2500 #### [facility] Laboratory [address] [place], [address] RDW SD 41.1 fl Normal 35.1-43.9 [facility] Comment on above: Performed By: #### L 100.0100, L500.2500 #### [facility] Laboratory [address] [place], [address] WBC (Bld) [#/Vol] 7.6 10*3/uL Normal 4.4-11.0 [facility] Comment on above: Performed By: #### L 100.0100, L500.2500 #### [facility] Laboratory [address] [place], [address] Carbon dioxide, total [Moles /volume] in Central venous bloodOrdered By: Marcus Delatorre on 12-09-2024 CO2 [Moles/Vol] 21.7 mmol/L 21.0-32.0 [facility] Chloride assayOrdered By: Jackson Delatorre on 12-09-2024 Chloride [Moles/Vol] 104 mmol/L 98-108 [facility] Emergency Department Summary on 12-09-2024 Emergency Department Summary [facility] Medical Records Department [address] [place] [address] Emergency Department Summary 12/09/24 MR#: [id number] Acct: [id number] Name: ARVIND DOMÍNGUEZ Rep #: [id number] : 1975 49 From: Marcus Delatorre MD PCP: Niraj Andino, [employer] Status:REG ER Location: ED HPI History of Present Illness Chief Complaint: General Illness Narrative Narrative: History and physical limited secondary to autism and schizophrenia. Per caretaker grounds and sister who is his legal guardian, [...] they are presenting him for medical screening. [facility] Medical History Rash Low iron Non-smoker [...] gram-180 kcal/36 gram oral powder (Else Toddler Quinlan) Allergy/AdvReac Type Severity Reaction Status Date / [...] abnormality v (more content not included)... Normal [facility] Eosinophil percentageOrdered By: Marcus Delatorre on 12-09-2024 Eosinophils/100 WBC (Bld) 3.5 % 0-5 [facility] Erythrocyte distribution wid th ratioOrdered By: Marcus Delatorre on 12-09-2024 Erythrocyte distribution width (RBC) [Ratio] 13.2 % 11.6-14.6 [facility] Erythrocyte distribution wid th standard deviationOrdered By: Marcus Delatorre on 12-09-2024 Erythrocyte distribution width (RBC) [Ratio] 41.1 fl 35.1-43.9 [facility] Glomerular filtration rate ( GFR) estimation/1.73 sq m using serum, plasma, or whole bOrdered By: Marcus Delatorre on 12-09-2024 GFR/1.73 sq M.predicted among non-blacks MDRD (S/P/Bld) [Vol rate/Area] 107 mL/min/{1.73_m2} >60 [facility] Comment on above: mL/min/1.73m2 CKD-EP I Creatinine Equation (2020) Hematocrit Auto (Bld) [Volum e fraction]Ordered By: Marcus Delatorre on 12-09-2024 Hematocrit (Bld) [Volume fraction] 42.3 % 40-54 [facility] Hemoglobin measurementOrdere d By: Marcus Delatorre on 12-09-2024 Hemoglobin (Bld) [Mass/Vol] 13.8 g/dL 13.0-16.5 [facility] Immature granulocytes/100 WB C Auto (Bld)Ordered By: Marcus Delatorre on 12-09-2024 Immature granulocytes/100 WBC (Bld) 0.400 % 0.0-0.9 [facility] Comment on above: IG% - Immature Granu locytes (promyelocytes, myelocytes and metamyelocytes) > 1% indicates that a LEFT SHIFT is Present. Ketones Test strip Ql (U)Ord ered By: Marcus Delatorre on 12-09-2024 Ketones Ql (U) Negative Negative [facility] MCV (mean corpuscular volume ) determinationOrdered By: Marcus Delatorre on 12-09-2024 MCV (RBC) [Entitic vol] 84.9 fL 80-94 [facility] Mean corpuscular hemoglobin (MCH) determinationOrdered By: Marcus Delatorre on 12-09-2024 MCH (RBC) [Entitic mass] 27.7 pg 27.0-32.0 [facility] Mean corpuscular hemoglobin concentration (MCHC) determinationOrdered By: Marcus Delatorre on 12-09-2024 MCHC (RBC) [Mass/Vol] 32.6 g/dL 32-36 [facility] Mean platelet volume determi nationOrdered By: Marcus Delatorre on 12-09-2024 Platelet mean volume (Bld) [Entitic vol] 11.3 fL 6.2-12.0 [facility] Microscopic analysis of urin e for red blood cells (RBC)Ordered By: Marcus Delatorre on 12-09-2024 Microscopic analysis of urine for red blood cells (RBC) 0-5 SEEN /hpf 0-5 [facility] Monocyte percentageOrdered B y: Marcus Delatorre on 12-09-2024 Monocytes/100 WBC (Bld) 8.0 % 0-10 [facility] Mucus LM Ql (Urine sed)Order ed By: Marcus Delatorre on 12-09-2024 Mucus Ql (Urine sed) 0 SEEN /hpf [facility] Neutrophil percentageOrdered By: Marcus Delatorre on 12-09-2024 Neutrophils/100 WBC (Bld) 70.1 % High 47-70 [facility] Nitrite Test strip Ql (U)Ord ered By: Marcus Delatorre on 12-09-2024 Nitrite Ql (U) Negative Negative [facility] Nucleated red blood cell per centageOrdered By: Marcus Delatorre on 12-09-2024 Nucleated RBC/100 WBC (Bld) [Ratio] 0 % 0-5 [facility] Platelet countOrdered By: Jackson Delatorre on 12-09-2024 Platelets (Bld) [#/Vol] 227 10*3/uL 150-450 [facility] Potassium measurement (mass/ volume)Ordered By: Marcus Delatorre on 12-09-2024 Potassium (Unsp spec) [Mass/Vol] 4.3 mmol/L 3.3-5.1 [facility] Protein Test strip Ql (U)Ord ered By: Marcus Delatorre on 12-09-2024 Protein Ql (U) Negative Negative [facility] RBC Auto (Bld) [#/Vol]Ordere d By: Marcus Delatorre on 12-09-2024 RBC (Bld) [#/Vol] 4.98 10*6/uL 4.6-6.2 [facility] Serum creatinine measurement (mass/volume)Ordered By: Marcus Delatorre on 12-09-2024 Creatinine [Mass/Vol] 0.85 mg/dL 0.70-1.20 [facility] Serum glucose measurement (m ass/volume)Ordered By: Marcus Delatorre on 12-09-2024 Glucose [Mass/Vol] 139 mg/dL High 70-99 [facility] Serum or plasma calcium luci urement (mass/volume)Ordered By: Marcus Delatorre on 12-09-2024 Calcium [Mass/Vol] 9.6 mg/dL 7.6-11.0 [facility] Serum or plasma urea nitroge n measurement (mass/volume)Ordered By: Marcus Delatorre on 12-09-2024 Urea nitrogen [Mass/Vol] 14 mg/dL 4-19 [facility] Sodium levelOrdered By: Marcus Delatorre on 12-09-2024 Sodium [Moles/Vol] 137 mmol/L 133-145 [facility] Squamous epithelial cells de tection in urine sediment by light microscopyOrdered By: Marcus Delatorre on 12-09-2024 Epithelial cells.squamous LM Ql (Urine sed) 0-5 SEEN /hpf 0-5 [facility] Urinalysis, Completeon 12-09 EPI,SQUAMOUS 0-5 SEEN Normal 0-5 [facility] Comment on above: Order Comment: CLEAN CATCH Performed By: #### L 400.0001 #### [facility] Laboratory [address] [place], [address] RBC 0-5 SEEN Normal 0-5 [facility] Comment on above: Order Comment: CLEAN CATCH Performed By: #### L 400.0001 #### [facility] Laboratory [address] [place], [address] WBC 0-5 SEEN Normal 0-5 [facility] Comment on above: Order Comment: CLEAN CATCH Performed By: #### L 400.0001 #### [facility] Laboratory [address] [place], [address] BACTERIA 0 SEEN Normal None Seen [facility] Comment on above: Order Comment: CLEAN CATCH Performed By: #### L 400.0001 #### [facility] Laboratory [address] [place], [address] Mucus Ql (Urine sed) 0 SEEN Normal [facility] Comment on above: Order Comment: CLEAN CATCH Performed By: #### L 400.0001 #### [facility] Laboratory [address] [place], [address] Urine clarityOrdered By: Emmanuelle Delatorre on 12-09-2024 Clarity (U) Clear Clear [facility] Urine color determinationOrd ered By: Marcus Delatorre on 12-09-2024 Color (U) Straw Yellow [facility] Urine glucose detectionOrder ed By: Marcus Delatorre on 12-09-2024 Glucose Ql (U) Normal mg/dl Normal [facility] Urine leukocyte esterase det ection by dipstickOrdered By: Marcus Delatorre on 12-09-2024 Leukocyte esterase Test strip Ql (U) Negative Negative [facility] Urine pHOrdered By: Marcus skelton on 12-09-2024 pH (U) 7.0 [pH] 5.0 - 8.0 [facility] Urine sediment bacteria coun t by microscopy (number/high power field)Ordered By: Marcus Delatorre on 12-09-2024 Bacteria LM.HPF (Urine sed) [#/Area] 0 /[HPF] None Seen [facility] Urine specific gravity measu rementOrdered By: Marcus Delatorre on 12-09-2024 Specific gravity (U) [Rel density] 1.005 1.002-1.03 0 [facility] Urine urobilinogen measureme ntOrdered By: Marcus Delatorre on 12-09-2024 Urobilinogen Ql (U) Normal mg/dl Normal [facility] White blood cell (WBC) count Ordered By: Marcus Delatorre on 12-09-2024 WBC (Bld) [#/Vol] 7.6 10*3/uL 4.4-11.0 [facility] White blood cell countOrdere d By: Marcus Delatorre on 12-09-2024 White blood cell count 0-5 SEEN /hpf 0-5 [facility] CNOVon 11-16-2024 CNOV Office Visit ([facility] ) ARVIND DOMÍNGUEZ ([id number]) 1975 M GRD Date Time Provider Department 11/16/24 2:15 PM ALIZE VILLA [facility] During your visit today, we recorded the following information about you: Temperature Pulse Respiration Blood pressure 97.2 degrees 86/minute 16/minute 110/72 Weight 72.7 kg Alize VillaAPRN.FIRE HYDRANT OPERATOR 11/16/2024 3:25 PM Signed [facility] Subjective Arvind Domínguez is [...] have gone and seen ENT at [facility] where has significant hearing loss in [...] KAOPECTATE, ATTAPULGITE, ORAL Take by mouth. Dr Chogn Lactobac no.41/Bifidobact no.7 (PROBIOTIC-10 ORAL) Take by [...] (FLONASE) 50 mcg/actuation nasal spray Use 1 Sabine in each nostril once daily. OLANZapine orally [...] primary care if symptoms persist. Alize Villa APRN.FIRE HYDRANT OPERATOR [facility] patient well-appearing nontoxic in no acute distress 49-year-old male who is autistic mainly nonverbal presents with his sister. No concerns of ear infection such as perichondritis, otitis media, otitis externa or rupture tympanic membrane follow-up with ENT versus PCP if symptoms persist she (more content not included)... Normal [facility] Allergen Resp. Area 5on 06-2 ALTERNARIA TEN <0.10 Normal Class 0 [facility] Comment on above: Performed By: #### L 5500.0700 #### [facility] Laboratory [address] [place], [address] HELIO, WHITE <0.10 Normal Class 0 [facility] Comment on above: Performed By: #### L 5500.0700 #### [facility] Laboratory [address] [place], [address] ASPERGILLUS FUM <0.10 Normal Class 0 [facility] Comment on above: Performed By: #### L 5500.0700 #### [facility] Laboratory [address] [place], [address] BERMUDA GRASS <0.10 Normal Class 0 [facility] Comment on above: Performed By: #### L 5500.0700 #### [facility] Laboratory [address] [place], [address] BIRCH <0.10 Normal Class 0 [facility] Comment on above: Performed By: #### L 5500.0700 #### [facility] Laboratory [address] [place], [address] BLACK WALNUT <0.10 Normal Class 0 [facility] Comment on above: Performed By: #### L 5500.0700 #### [facility] Laboratory [address] [place], [place], [address] CAT HAIR/DANDER <0.10 Normal Class 0 [facility] Comment on above: Performed By: #### L 0.0700 #### [facility] Laboratory [address] [place], [address] CLADOSPOR HERB <0.10 Normal Class 0 [facility] Comment on above: Performed By: #### L 0.0700 #### [facility] Laboratory [address] [facility] [id number] COCKROACH,AMER <0.10 Normal Class 0 [facility] Comment on above: Performed By: #### L 0.0700 #### [facility] Laboratory [address] [place], [place], [id number] COMMENT Comment Normal . [facility] Comment on above: Result Comment: Tariq corado of Specific IgE Class Description of Class ----- < 0.10 0 Negative 0.10 - 0.31 0/I Equivocal/Low 0.32 - 0.55 I Low 0.56 - 1.40 II Moderate 1.41 - 3.90 III High 3.91 - 19.00 IV Very High 19.01 - 100.00 V Very High >100.00 Very High Performed By: #### L 0.0700 #### [facility] Laboratory [address] [place], [address] COTTONWOOD <0.10 Normal Class 0 [facility] Comment on above: Performed By: #### L 0.0700 #### [facility] Laboratory [address] [place], [address] D FARINAE MITE <0.10 Normal Class 0 [facility] Comment on above: Performed By: #### L 0.0700 #### [facility] Laboratory [address] [place], [address] D PTERONYSSINUS <0.10 Normal Class 0 [facility] Comment on above: Performed By: #### L 5499.0700 #### [facility] Laboratory [address] [place], [address] DOG EPITHELIA <0.10 Normal Class 0 [facility] Comment on above: Performed By: #### L 0.0700 #### [facility] Laboratory [address] [place], [address] ELM,AMER WHITE <0.10 Normal Class 0 [facility] Comment on above: Performed By: #### L 0.0700 #### [facility] Laboratory [address] [place], [address] IMMUNOGLOB E 51 IU/mL Normal 6-495 [facility] Comment on above: Performed By: #### L 0.0700 #### [facility] Laboratory [address] [place], [address] MAPLE/BOX ELDER <0.10 Normal Class 0 [facility] Comment on above: Performed By: #### L 0.0700 #### [facility] Laboratory [address] [place], [address] MOUNTAIN CEDAR <0.10 Normal Class 0 [facility] Comment on above: Performed By: #### L 0.0700 #### [facility] Laboratory [address] [place], [address] Mouse Urine <0.10 Normal Class 0 [facility] Comment on above: Performed By: #### L 5500.0700 #### [facility] Laboratory [address] [place], [address] MULBERRY,WHITE <0.10 Normal Class 0 [facility] Comment on above: Performed By: #### L 5500.0700 #### [facility] Laboratory [address] [place], [address] OAK, WHITE <0.10 Normal Class 0 [facility] Comment on above: Performed By: #### L 5500.0700 #### [facility] Laboratory [address] [place], [address] PECAN <0.10 Normal Class 0 [facility] Comment on above: Performed By: #### L 5500.0700 #### [facility] Laboratory [address] [place], [address] PEN NOTATUM <0.10 Normal Class 0 [facility] Comment on above: Performed By: #### L 5500.0700 #### [facility] Laboratory [address] [place], [address] PIGWEED, ROUGH <0.10 Normal Class 0 [facility] Comment on above: Performed By: #### L 5500.0700 #### [facility] Laboratory [address] [place], [address] RAGWEED SH/COM <0.10 Normal Class 0 [facility] Comment on above: Performed By: #### L 5500.0700 #### [facility] Laboratory [address] [place], [address] PALESTINIAN THISTLE <0.10 Normal Class 0 [facility] Comment on above: Performed By: #### L 5500.0700 #### [facility] Laboratory [address] [place], [address] SHEEP SORREL <0.10 Normal Class 0 [facility] Comment on above: Result Comment: Perf ormed at: [facility] [address] [id number] Manager Psychiatry: Cris Poole MD, Phone: [phone] Performed By: #### L 5500.0700 #### [facility] Laboratory [address] [place], [address] SYCAMORE, AMER <0.10 Normal Class 0 [facility] Comment on above: Performed By: #### L 5500.0700 #### [facility] Laboratory [address] [place], [address] JEY GRASS <0.10 Normal Class 0 [facility] Comment on above: Performed By: #### L 5500.0700 #### [facility] Laboratory [address] [place], [address] IgEOrdered By: Abdias Orozco on 11-03-2024 IgE 51 IU/mL 6-495 [facility] No Panel InformationOrdered By: Abdias Orozco on 11-03-2024 RAST Comment Comment . [facility] Comment on above: Levels of Specific I gE Class Description of Class ----- < 0.10 0 Negative 0.10 - 0.31 0/I Equivocal/Low 0.32 - 0.55 I Low 0.56 - 1.40 II Moderate 1.41 - 3.90 III High 3.91 - 19.00 IV Very High 19.01 - 100.00 V Very High >100.00 Very High Serum Ugandan sycamore IgE antibody assay (units/volume)Ordered By: on 11-03-2024 Ugandan Hamel IgE Qn (S) <0.10 kU/L Class 0 [facility] Serum Aspergillus fumigatus IgE antibody assay (units/volume)Ordered By: Abdias on 11-03-2024 A. fumigatus IgE Qn (S) <0.10 kU/L Class 0 [facility] Serum Bermuda grass IgE anti body assay (units/volume)Ordered By: on 11-03-2024 Bermuda grass IgE Qn (S) <0.10 kU/L Class 0 [facility] Serum Cladosporium herbarum IgE antibody assay (units/volume)Ordered By: on 11-03-2024 C. herbarum IgE Qn (S) <0.10 kU/L Class 0 [facility] Serum Dermatophagoides ptero nyssinus specific IgE antibody assay (units/volume)Ordered By: on 11-03-2024 house dust mite IgE Qn (S) <0.10 kU/L Class 0 [facility] Serum Fraxinus americana IgE antibody assay (units/volume)Ordered By: on 11-03-2024 White Helio IgE Qn (S) <0.10 kU/L Class 0 [facility] Serum Rumex acetosella IgE a ntibody assay (units/volume)Ordered By: on 11-03-2024 Sheep Polkton IgE Qn (S) <0.10 kU/L Class 0 [facility] Comment on above: Performed at: [address] [id number] Director: Cris Poole MD, Phone: [phone] Serum Citizen Of [place] thistle specif ic IgE antibody assayOrdered By: on 11-03-2024 Saltwort IgE Qn (S) <0.10 kU/L Class 0 [facility] Serum black walnut IgE antib gene assay (units/volume)Ordered By: on 11-03-2024 Black [place]ington IgE Qn (S) <0.10 kU/L Class 0 [facility] Serum cottonwood IgE antibod y assay (units/volume)Ordered By: on 11-03-2024 [place] IgE Qn (S) <0.10 kU/L Class 0 [facility] Serum dog epithelium IgE ant ibody assay (units/volume)Ordered By: on 11-03-2024 Dog epithelium IgE Qn (S) <0.10 kU/L Class 0 [facility] Serum mountain cedar specifi c IgE antibody assayOrdered By: on 11-03-2024 Mountain Juniper IgE Qn (S) <0.10 kU/L Class 0 [facility] Serum jey IgE antibody a ssay (units/volume)Ordered By: on 11-03-2024 Jey IgE Qn (S) <0.10 kU/L Class 0 [facility] Serum white elm IgE antibody assay (units/volume)Ordered By: Abdias Orozco on 11-03-2024 White Elm IgE Qn (S) <0.10 kU/L Class [address] [facility] Serum white mulberry IgE ant ibody assay (units/volume)Ordered By: Abdias Orozco on 11-03-2024 White mulberry IgE Qn (S) <0.10 kU/L Class 0 [facility] Gastroenterology Visit Repor ton 10-28-2024 Gastroenterology Visit Report [facility] Gastroenterology [address] [place] [address] OFFICE VISIT Date of Service: 10/28/24 MR#: [id number] Acct: [id number] Name: ARVIND DOMÍNGUEZ Rep #: [id number] : 1975 Provider: ANTHONY Matthews Age/Sex: 49/M Location: [facility] Status: Signed Intake Vital Signs 07/07/24 16:38 [...] heartburn. Pt continues to take omeprazole daily. [facility] Medical History Rash Low iron Non-smoker [...] treated with PPI, Clarithromycin and amoxicillin OV 425: Pt continues with intermittent abd pain. He did finish his course of antibiotics but discontinued PPI as his sister did not feel it was helping. He has loose stools frequently and constipation on occasion. His sister also mentions he has had elevated liver enzymes over the past few months. OV 6.11.25 Pt continues with intermittent epigastric pain but [...] Assessment an (more content not included)... [facility] Office Visit (FIDELINAWS ) ARVIND DOMÍNGUEZ ([id number]) 1975 M GRD Date Time Provider Department 10/02/24 11:20 AM NIRAJ ANDINO [facility] During your visit today, we recorded the following information about you: Pulse Blood pressure Weight 94/minute 126/84 72 kg Niraj Andino APRN.[facility] 10/02/2024 11:39 AM Signed Chief Complaint Patient [...] KAOPECTATE, ATTAPULGITE, ORAL Take by mouth. Dr hCong Lactobac no.41/Bifidobact no.7 (PROBIOTIC-10 ORAL) Take by [...] (FLONASE) 50 mcg/actuation nasal spray Use 1 Sabine in each nostril once daily. loratadine 10 [...] 2.5 MG/5 ML ORAL SOLUTION Niraj Andino, BOILER OPERATOR HELPER.FIRE HYDRANT OPERATOR Allergies As of Date: 10/02/2024 (No Known Allergies) (more content not included)... Normal [facility] Panel Informationon 09-30 IMPRESSION: Limited study. Findings are suggestive of hepatic steatosis or diffuse liver parenchymal disease. Left renal cyst. Panel Fitter: MELINDA Transcribe Date/Time: Sep 30 2024 3:47P Dictated by : GEMMA PRATT MD This examination was interpreted and the report reviewed and electronically signed by: GEMMA PRATT MD on Sep 30 2024 3:53PM [facility] DIVISION OF RADIOLOGY Radiology Study observation (narrative) [facility] No Panel InformationOrdered By: [facility]cf Provider on 09-30-2024 [facility] US ABD RIGHT UPPER QUADRANTo n 09-30-2024 US ABD RIGHT UPPER QUADRANT * * *Final Report* * * DATE OF EXAM: Sep 30 2024 1:37PM U 1032 - US ABD RIGHT UPPER QUADRANT [...] diffuse liver parenchymal disease. Left renal cyst. Panel Fitter: MELINDA Transcribe Date/Time: Sep 30 2024 3:47P Dictated by : GEMMA PRATT MD This examination was interpreted and the report reviewed and electronically signed by: GEMMA PRATT MD on Sep 30 2024 3:53PM EST [id number] Normal [facility] US ABD SPLEEN - NBon 025 * [...] mass lesion seen. DIVISION OF RADIOLOGY Provider, [facility] - 09/30/2024 * * *Final Report* * [...] diffuse liver parenchymal disease. Left renal cyst. Panel Fitter: [facility] Transcribe Date/Time: Sep 30 2024 3:47P Dictated by : GEMMA PRATT MD This examination was interpreted and the report reviewed and electronically signed by: GEMMA PRATT MD on Sep 30 2024 3:53PM [facility] US ABD SPLEEN -NBon 10-01-19 US ABD SPLEEN -NB * * *Final Report* * * DATE OF EXAM: Sep 30 2024 1:37PM [facility] 1232 - US ABD SPLEEN -NB / [...] diffuse liver parenchymal disease. Left renal cyst. Panel Fitter: MELINDA Transcribe Date/Time: Sep 30 2024 3:47P Dictated by : GEMMA PRATT MD This examination was interpreted and the report reviewed and electronically signed by: GEMMA PRATT MD on Sep 30 2024 3:53PM EST [id number] Normal [facility] US Abdomen RUQon 09-30-2024 * * *Final Report* * * DATE OF EXAM: Sep 30 2024 1:37PM [facility] 1032 - US ABD RIGHT UPPER QUADRANT [...] mass lesion seen. DIVISION OF RADIOLOGY Provider, [facility] - 09/30/2024 * * *Final Report* * * DATE OF EXAM: Sep 30 2024 1:37PM WRU 1032 - US ABD RIGHT UPPER QUADRANT [...] diffuse liver parenchymal disease. Left renal cyst. Panel Fitter: MELINDA Transcribe Date/Time: Sep 30 2024 3:47P Dictated by : GEMMA PRATT MD This examination was interpreted and the report reviewed and electronically signed by: GEMMA PRATT MD on Sep 30 2024 3:53PM [facility] 09-18-2024 [facility] ARVIND DOMÍNGUEZ ([id number]) 1975 M GRD Date Time Provider Department 09/18/24 [facility] During your visit today, we recorded the [...] Please call and advise. SAMANTA Armstrong Danielle, APRN.FIRE HYDRANT OPERATOR 09/18/2024 11:46 AM Signed Do not change any medications. We will obtain US and go from there. Holley Bashir MA 09/18/2024 12:02 PM Signed Chiki notified and verbalized understanding Holley Bashir MA Allergies As of Date: 09/18/2024 (No Known Allergies) Date Reviewed: 08/11/2024 Reviewed by: Holley Bashir MA - Fully Assessed Reason for Visit: Medication Question [3548] Appointment [186] Prescriptions as of 09/18/2024 - [...] (FLONASE) 50 mcg/actuation nasal spray Use 1 Sabine in each nostril once daily. - loratadine [...] by WORKHOLLEY BERGER CMA on 09/18/24 Normal [facility] ALKALINE PHOSPHATASE ISOENZY MES (P)on 09-14-2024 ALK PHOS BONE % 23.3 % Normal 10.7-68.3 [facility] Comment on above: Order Comment: Speci men Type: BLOOD SPECIMENOrdering Facility: [facility] Address: [address] [place] [address] Performed By: #### A LKISOP ####[facility] LABCLIA [id number] [place] [address] [place] ALK PHOS LIVER % 76.7 % Normal 26.0-86.2 [facility] Comment on above: Order Comment: Speci men Type: BLOOD SPECIMENOrdering Facility: [facility] Address: [address] [place] [address] Performed By: #### A LKISOP ####[facility] LABCLIA [id number] [place] [id number] [facility] [place] BONE FRACTION 55.9 U/L High 12.9-52.6 [facility] Comment on above: Order Comment: Speci men Type: BLOOD SPECIMENOrdering Facility: [facility] Address: [address] [place] [address] Performed By: #### A LKISOP ####[facility] LABCLIA [id number] [place] [address] [place] INTESTINE FRACTION 0.0 U/L Normal 0.0-16.3 [facility] Comment on above: Order Comment: Speci men Type: BLOOD SPECIMENOrdering Facility: [facility] Address: [address] [place] [address] Performed By: #### A LKISOP ####[facility] LABCLIA [id number] [place] [address] [place] LIVER FRACTION 184.1 U/L High 16.0-69.3 [facility] Comment on above: Order Comment: Speci men Type: BLOOD SPECIMENOrdering Facility: [facility] Address: [address] [place] [address] Performed By: #### A LKISOP ####[facility] LABCLIA [id number] [place] [id number] [facility] [place] Neutrophils/100 WBC (Bld) 0.0 % Normal 0.0-24.2 [facility] Comment on above: Order Comment: Speci men Type: BLOOD SPECIMENOrdering Facility: [facility] Address: [address] [place] [address] Performed By: #### A LKISOP ####[facility] LABCLIA [id number] [address] [place] ALP SerPl-cCncon 09-14-2024 ALP [Catalytic activity/Vol] 240 U/L High 38-113 [facility] Comment on above: Order Comment: Speci men Type: BLOOD SPECIMENOrdering Facility: [facility] Address: [address] [place] [address] Performed By: #### 6 768-6, 2324-2 ####[facility] LABIA [id number] [place] [address] [place] GGT SerPl-cCncon 09-14-2024 Gamma glutamyl transferase [Catalytic activity/Vol] 377 U/L High 10-70 [facility] Comment on above: Order Comment: Speci men Type: BLOOD SPECIMENOrdering Facility: [facility] Address: [address] [place] [address] Performed By: #### 6 768-6, 2324-2 ####[facility] [id number] [place] [address] [place] Mitochondria Ab IF Ql (S)on 09-14-2024 Mitochondria M2 Ab IA Qn (S) 1.3 Units Normal <=20.0 [facility] Comment on above: Order Comment: Speci men Type: BLOOD SPECIMENOrdering Facility: [facility] Address: [address] [place] [address] Performed By: #### 1 7284-1 ####[facility] [id number] [address] [place] Mitochondria M2 Ab Ql (S) Negative Normal Negative [facility] Comment on above: Order Comment: Speci men Type: BLOOD SPECIMENOrdering Facility: [facility] Address: [address] [place] [address] Result Comment: Anti -mitochondrial antibody test is used as an aid in diagnosis of primary biliary cholangitis. Clinical correlation is required. Performed By: #### 1 7284-1 ####[facility] LABIA [id number] [place] [id number] [facility] [place] AUDIOGRAMon 08-27-[address] [facility] Radiology Study observation (narrative) [facility] CNPNon 08-27-2024 CNPN Telephone ([facility]) ARVIND DOMÍNGUEZ ([id number]) 1975 M GRD Date Time Provider Department 08/27/24 NIRAJ ANDINO During your visit today, we recorded the following information about you: Tammi Sapp RN 08/27/2024 12:13 PM Signed Patient's sister/guardian Chiki Gill is calling to ask if provider would advise on pt's recent hepatic function panel results, when able. SAMANTA Cobian Danielle, BOILER OPERATOR HELPER.[facility] 08/27/2024 12:41 PM Signed Etienne's alk phos is slightly higher than previous but other levels are stable. I have ordered follow up labs that can be completed at any time. Mary Gibson MA 08/28/2024 12:10 PM Signed Called and left message on patients Chiki nuñez's voicemail to return call to the office and ask to speak with a triage nurse. ADRI Collazo Beth, LPN 08/28/2024 2:06 PM Signed Patient sister Chiki Gill returned call and went over results, notes from Shena Andino TOOLMAKER GRADE THREE with understanding. She will try to get him in today to get other labs done, if not it will be Saturday. Allergies As of Date: 08/27/2024 (No Known Allergies) Date Reviewed: 08/11/2024 Reviewed by: Holley Bashir MA - Fully Assessed Reason for Visit: Results [95] Primary Visit Diagnosis:Elevated alkaline phosphatase level [R74.8] Order(s):ALK PHOS ISOENZYM BL [SQALKISO] Order #: [id number] FUTURE MITOCHONDRIAL M2 IGG SERUM [SQMITOS] Order #: [id number] FUTURE GGT [SQGGT] Order #: [id number] FUTURE Prescriptions as of 08/28/2024 - ergocalciferol [...] (FLONASE) 50 mcg/actuation nasal spray Use 1 Sabine in each nostril once daily. - loratadine 10 mg dissolvable tablet Take 10 mg by mouth once daily. - OLANZapine orally disintegrating (ZYPREXA ZYDIS) 5 mg disintegrating tablet Take 5 mg by mouth daily at bedtime. - Nutritional Supplements (ENSURE PUDDING) pudg Take 113 g by mouth twice daily. Problem List As Of Date: 08/27/2024 (None) Encounter Status:Closed by RADHA WALL [facility] [facility] ARVIND DOMÍNGUEZ ([id number]) 1975 M [facility] Date Time Provider Department 08/27/24 NIRAJ ANDINO [facility] During your visit today, we recorded the following information about you: Tmami Sapp RN 08/27/2024 3:02 PM Signed Patient's sister/guardian Chiki Gill is calling to update Niraj Andino FIRE HYDRANT OPERATOR that she was able to get patient in to an senior training and development rep today at [facility] and is there now. 1) The senior training and development rep there is asking for provider to place and fax an order to them to cover today's exam, for an audiometric evaluation referral. Please fax to [phone]. Requesting this by the end of the day, if possible. 2)The senior training and development rep states pt should have a brain stem response test in the future which should be indicated in today's audiology OV note. 2) The senior training and development rep advises that provider also place an order for ENT consult for pt to have after his brain stem response test. Please call sister Chiki with an update. SAMANTA Cobian Danielle, APRN.[facility] 08/28/2024 8:43 AM Signed Order placed. Tammi Sapp RN 08/28/2024 9:10 AM Signed Faxed as requested to number below. Detailed message left on Chiki Gill's identified VM. Tammi Sapp RN Allergies As of Date: 08/27/2024 (No Known Allergies) Date Reviewed: 08/11/2024 Reviewed by: Holley Bashir MA - Fully Assessed Reason for Visit: Orders [681] Primary Visit Diagnosis:Non-verbal learning disorder [F81.89] Order(s):HEARING TEST/AUDIOGRAM [7955248] Order #: [id number]: 1 FUTURE Prescriptions as of 08/28/2024 - [...] (FLONASE) 50 mcg/actuation nasal spray Use 1 Sabine in each nostril once daily. - loratadine [...] Status:Closed by TAMMI SAPP on 08/28/24 Normal [facility] Gastroenterology Visit Repor ton 08-26-2024 Gastroenterology Visit Report [facility] Gastroenterology [address] [place] [address] OFFICE VISIT Date of Service: 08/26/24 MR#: [id number] Acct: [id number] Name: ARVIND DOMÍNGUEZ Rep #: [id number] : 1975 Provider: ANTHONY Matthews Age/Sex: 49/M Location: [facility] Status: Signed Intake Vital Signs 07/07/24 16:38 Height 6 ft 1 in Intake Visit Reasons: Follow up Chief Complaint: abd pain Allergies No Known Allergies Allergy (Verified 07/07/24 16:38) Nurse's Note: OV 08.26.24 Pt here for for f/u. Pt reports indigestion, gas, bloating, bowl movement fluctuating from loose to constipation. Pt continues omeprazole, pantoprazole, sucralfate, and Zofran daily. [facility] Medical History Rash Low iron Non-smoker [...] treated with PPI, Clarithromycin and amoxicillin OV 4.02.11: Pt continues with intermittent abd pain. He [...] Appearance: average body habitus and well nourished [facility] Head: normal to inspection Ears: hearing [...] h. p (more content not included)... Normal [facility] Hepatic function 2000 panelo n 08-25-2024 Albumin [Mass/Vol] 4.7 g/dL Normal 3.9-4.9 [facility] Comment on above: Order Comment: Speci men Type: BLOOD SPECIMENOrdering Facility: [facility] Address: [address] [address] Performed By: #### 2 4325-3 ####[facility]ORY[facility]IA [id number] [place] [address] [place] ALP [Catalytic activity/Vol] 194 U/L High 38-113 [facility] Comment on above: Order Comment: Speci men Type: BLOOD SPECIMENOrdering Facility: [facility] Address: [address] [place] [address] Performed By: #### 2 4325-3 ####[facility]ATORYCLIA [id number] [place] [address] [place] ALT [Catalytic activity/Vol] 43 U/L Normal 10-54 [facility] Comment on above: Order Comment: Speci men Type: BLOOD SPECIMENOrdering Facility: [facility] Address: [address] [place] [address] Performed By: #### 2 5-3 ####[facility]IA [id number] [place] [address] [place] AST [Catalytic activity/Vol] 28 U/L Normal 14-40 [facility] Comment on above: Order Comment: Speci men Type: BLOOD SPECIMENOrdering Facility: [facility] Address: [address] [place] [address] Performed By: #### 2 4324-3 ####[facility]ORY[facility] [id number] [place] [address] [place] Bilirubin [Mass/Vol] mg/dL Low 0.2-1.3 [facility] Comment on above: Order Comment: Speci men Type: BLOOD SPECIMENOrdering Facility: [facility] Address: [address] [place] [address] Performed By: #### 2 5-3 ####[facility] [id number] [place] [address] [place] Bilirubin.conjugated [Mass/Vol] mg/dL Normal <0.3 [facility] Comment on above: Order Comment: Speci men Type: BLOOD SPECIMENOrdering Facility: [facility] Address: [address] [place] [address] Performed By: #### 2 4325-3 ####[facility] [id number] [place] [address] [place] Protein [Mass/Vol] 7.7 g/dL Normal 6.3-8.0 [facility] Comment on above: Order Comment: Speci men Type: BLOOD SPECIMENOrdering Facility: [facility] Address: [address] [place] [address] Performed By: #### 2 4325-3 ####[facility]ATORYCLIA [id number] [place] [id number] [facility] KUNALARVIND KAUFMAN ([id number]) 1975 M GRD Date Time Provider Department 08/14/24 NIRAJ ANDINO [facility] During your visit today, we recorded the following information about you: Michelle Tijerina RN 08/14/2024 11:04 AM Signed Patient's sister Chiki calls and is asking about lab results. Please review and advise, SAMANTA Mitchell Danielle, APRN.[facility] 08/14/2024 11:51 AM Signed Please let Chiki [...] liquid or chewable form. SAMANTA Armstrong Danielle, APRN.FIRE HYDRANT OPERATOR 08/14/2024 1:55 PM Signed I have sent in a rx for liquid atorvastatin. Trma Barajas RN 08/18/2024 8:37 AM Signed Kerry from [employer] asking for clinical information regarding pt's Atorvastatin liquid prescription. Explained that pt does not swallow pills and has Autism, Mental disability and Schizophrenia. Kerry will forward the clinical information on. Ref # is [id number] Allergies As of Date: 08/14/2024 (No Known [...] 5 HEPATIC FUNCTION PNL [SQHFP] Order #: [id number] FUTURE atorvastatin (ATORVALIQ) 20 mg/5 mL (4 [...] (FLONASE) 50 mcg/actuation nasal spray Use 1 Sabine in each nostril once daily. - loratadine 10 mg dissolvable tablet Take 10 mg by mouth once daily. - OLANZapine orally disintegrating (ZYPREXA ZYDIS) 5 mg disintegrating tablet Take 5 mg by mouth daily at bedtime. - Nutritional Supplements (ENSURE PUDDING) pudg Take 113 g by mouth twice da (more content not included)... Normal [facility] 25(OH)D3 [facility] 25-hydroxyvitamin D3 [Mass/Vol] 25.1 ng/mL Low 31.0-80.0 [facility] Comment on above: Order Comment: Speci men Type: BLOOD SPECIMENOrdering Facility: [facility] Address: [address] [place] [address] Result Comment: Clas sification of 25 [place] Vitamin D status: Deficiency/Insufficiency: < or = 30 ng/ml. Sufficiency/Optimal Levels: 31-80 ng/mL Toxicity: > 100 ng/mL. Test performed by chemiluminescent immunoassay. Performed By: #### 1 989-3 ####[facility] LABCLIA [id number] [place] [address] [place] CBC W Auto Differential pane l (Bld)on 08-11-2024 Basophils (Bld) [#/Vol] 0.04 10*3/uL [facility] Basophils/100 WBC (Bld) 0.5 % [facility] Differential cell count method Nom (Bld) Auto [facility] Eosinophils (Bld) [#/Vol] 0.16 10*3/uL [facility] Eosinophils/100 WBC (Bld) 1.9 % [facility] Erythrocyte distribution width (RBC) [Ratio] 14 % 11.5 - 15.0 % [facility] Hematocrit (Bld) [Volume fraction] 42.1 % 39.0 - 51.0 % [facility] Hemoglobin (Bld) [Mass/Vol] 13.3 g/dL 13.0 - 17.0 g/dL [facility] Immature granulocytes (Bld) [#/Vol] [facility] Immature granulocytes/100 WBC (Bld) 0.2 % [facility] Lymphocytes (Bld) [#/Vol] 2.24 10*3/uL [facility] Lymphocytes/100 WBC (Bld) 26.6 % [facility] MCH (RBC) [Entitic mass] 27.7 pg 26.0 - 34.0 pg [facility] MCHC (RBC) [Mass/Vol] 31.6 g/dL 30.5 - 36.0 g/dL [facility] MCV (RBC) [Entitic vol] 87.5 fL 80.0 - 100.0 fL [facility] Monocytes (Bld) [#/Vol] 0.52 10*3/uL NINF [facility] Monocytes/100 WBC (Bld) 6.2 % [facility] Neutrophils (Bld) [#/Vol] 5.43 10*3/uL [facility] Neutrophils/100 WBC (Bld) 64.6 % [facility] Nucleated RBC (Bld) [#/Vol] NINF [facility] Nucleated RBC/100 WBC (Bld) [Ratio] 0 % /100 WBC [facility] Platelet mean volume (Bld) [Entitic vol] 11.6 fL 9.0 - 12.7 fL [facility] Platelets (Bld) [#/Vol] 210 10*3/uL [facility] RBC (Bld) [#/Vol] 4.81 10*6/uL 4.20 - 6.00 m/uL [facility] WBC (Bld) [#/Vol] 8.41 10*3/uL [facility] Basophils (Bld) [#/Vol] 0.04 10*3/uL Normal <0.11 [facility] Comment on above: Order Comment: Speci men Type: BLOOD SPECIMENOrdering Facility: [facility] Address: [address] [place] [address] Performed By: #### 5 7021-8 ####[facility] LABCLIA [id number] [place] [address] [place] Basophils/100 WBC (Bld) 0.5 % Normal [facility] Comment on above: Order Comment: Speci men Type: BLOOD SPECIMENOrdering Facility: [facility] Address: [address] [place] [address] Performed By: #### 5 7021-8 ####[facility] LABCLIA [id number] [place] [address] [place] Differential cell count method Nom (Bld) Auto Normal [facility] Comment on above: Order Comment: Speci men Type: BLOOD SPECIMENOrdering Facility: [facility] Address: [address] [place] [address] Performed By: #### 5 7021-8 ####[facility] LABCLIA [id number] [place] [address] [place] Eosinophils (Bld) [#/Vol] 0.16 10*3/uL Normal <0.46 [facility] Comment on above: Order Comment: Speci men Type: BLOOD SPECIMENOrdering Facility: [facility] Address: [address] [place] [address] Performed By: #### 5 7021-8 ####[facility] LABCLIA [id number] [place] [address] [place] Eosinophils/100 WBC (Bld) 1.9 % Normal [facility] Comment on above: Order Comment: Speci men Type: BLOOD SPECIMENOrdering Facility: [facility] Address: [address] [place] [address] Performed By: #### 5 7021-8 ####[facility] LABIA [id number] [place] [address] [place] Erythrocyte distribution width (RBC) [Ratio] 14.0 % Normal 11.5-15.0 [facility] Comment on above: Order Comment: Speci men Type: BLOOD SPECIMENOrdering Facility: [facility] Address: [address] [place] [address] Performed By: #### 5 7021-8 ####[facility] LABCLIA [id number] [place] [address] [place] Hematocrit (Bld) [Volume fraction] 42.1 % Normal 39.0-51.0 [facility] Comment on above: Order Comment: Speci men Type: BLOOD SPECIMENOrdering Facility: [facility] Address: [address] [place] [address] Performed By: #### 5 7021-8 ####[facility] LABCLIA [id number] [address], [facility] [place] Hemoglobin (Bld) [Mass/Vol] 13.3 g/dL Normal 13.0-17.0 [facility] Comment on above: Order Comment: Speci men Type: BLOOD SPECIMENOrdering Facility: [facility] Address: [address] [place] [address] Performed By: #### 5 7021-8 ####[facility] LABCLIA [id number] [address] [address] [place] Immature granulocytes (Bld) [#/Vol] 10*3/uL Normal <0.10 [facility] Comment on above: Order Comment: Speci men Type: BLOOD SPECIMENOrdering Facility: [facility] Address: [address] [place] [address] Performed By: #### 5 7021-8 ####[facility] LABCLIA [id number] [place] [address] [place] Immature granulocytes/100 WBC (Bld) 0.2 % Normal [facility] Comment on above: Order Comment: Speci men Type: BLOOD SPECIMENOrdering Facility: [facility] Address: [address] [place] [address] Performed By: #### 5 7021-8 ####[facility] LABCLIA [id number] [place] [address] [place] Lymphocytes (Bld) [#/Vol] 2.24 10*3/uL Normal 1.00-4.00 [facility] Comment on above: Order Comment: Speci men Type: BLOOD SPECIMENOrdering Facility: [facility] Address: [address] [place] [address] Performed By: #### 5 7021-8 ####[facility] LABCLIA [id number] [place] [id number] [place] Lymphocytes/100 WBC (Bld) 26.6 % Normal [facility] Comment on above: Order Comment: Speci men Type: BLOOD SPECIMENOrdering Facility: [facility] Address: [address] [place] [address] Performed By: #### 5 7021-8 ####[facility] LABCLIA [id number] [place] [address] [place] MCH (RBC) [Entitic mass] 27.7 pg Normal 26.0-34.0 [facility] Comment on above: Order Comment: Speci men Type: BLOOD SPECIMENOrdering Facility: [facility] Address: [address] [place] [address] Performed By: #### 5 7021-8 ####[facility] LABIA [id number] [place] [address] [place] MCHC (RBC) [Mass/Vol] 31.6 g/dL Normal 30.5-36.0 [facility] Comment on above: Order Comment: Speci men Type: BLOOD SPECIMENOrdering Facility: [facility] Address: [address] [place] [address] Performed By: #### 5 7021-8 ####[facility] HOSPITALIA [id number] [place] [address] [place] MCV (RBC) [Entitic vol] 87.5 fL Normal 80.0-100.0 [facility] Comment on above: Order Comment: Speci men Type: BLOOD SPECIMENOrdering Facility: [facility] Address: [address] [place] [address] Performed By: #### 5 7021-8 ####[facility] LABIA [id number] [place] [address] [place] Monocytes (Bld) [#/Vol] 0.52 10*3/uL Normal <0.87 [facility] Comment on above: Order Comment: Speci men Type: BLOOD SPECIMENOrdering Facility: [facility] Address: [address] [place] [address] Performed By: #### 5 7021-8 ####[facility] LABIA [id number] [place] [address] [place] Monocytes/100 WBC (Bld) 6.2 % Normal [facility] Comment on above: Order Comment: Speci men Type: BLOOD SPECIMENOrdering Facility: [facility] Address: [address] [place] [address] Performed By: #### 5 7021-8 ####[facility] [facility] LABCLIA [id number] [place] [address] [place] Neutrophils (Bld) [#/Vol] 5.43 10*3/uL Normal 1.45-7.50 [facility] Comment on above: Order Comment: Speci men Type: BLOOD SPECIMENOrdering Facility: [facility] Address: [address] [place] [address] Performed By: #### 5 7021-8 ####[facility] LABCLIA [id number] [place] [address] [place] Neutrophils/100 WBC (Bld) 64.6 % Normal [facility] Comment on above: Order Comment: Speci men Type: BLOOD SPECIMENOrdering Facility: [facility] Address: [address] [place] [address] Performed By: #### 5 7021-8 ####[facility] LABCLIA [id number] [place] [address] [place] Nucleated RBC (Bld) [#/Vol] 10*3/uL Normal <0.01 [facility] Comment on above: Order Comment: Speci men Type: BLOOD SPECIMENOrdering Facility: [facility] Address: [address] [place] [address] Performed By: #### 5 7021-8 ####[facility] LABCLIA [id number] [place] [address] [place] Nucleated RBC/100 WBC (Bld) [Ratio] 0.0 /100 WBC Normal [facility] Comment on above: Order Comment: Speci men Type: BLOOD SPECIMENOrdering Facility: [facility] Address: [address] [place] [address] Performed By: #### 5 7021-8 ####[facility] LABCLIA [id number] [address] [place] [address] [place] Platelet mean volume (Bld) [Entitic vol] 11.6 fL Normal 9.0-12.7 [facility] Comment on above: Order Comment: Speci men Type: BLOOD SPECIMENOrdering Facility: [facility] Address: [address] [place] [address] Performed By: #### 5 7021-8 ####[facility] LABCLIA [id number] [address] [place] [address] [place] Platelets (Bld) [#/Vol] 210 10*3/uL Normal 150-400 [facility] Comment on above: Order Comment: Speci men Type: BLOOD SPECIMENOrdering Facility: [facility] Address: [address] [place] [address] Performed By: #### 5 7021-8 ####[facility] LABIA [id number] [address], [facility] [place] RBC (Bld) [#/Vol] 4.81 10*6/uL Normal 4.20-6.00 [facility] Comment on above: Order Comment: Speci men Type: BLOOD SPECIMENOrdering Facility: [facility] Address: [address] [place] [address] Performed By: #### 5 7021-8 ####[facility] LABCLIA [id number] [address] [place] [address] [place] WBC (Bld) [#/Vol] 8.41 10*3/uL Normal 3.70-11.00 [facility] Comment on above: Order Comment: Speci men Type: BLOOD SPECIMENOrdering Facility: [facility] Address: [address] [place] [address] Performed By: #### 5 7021-8 ####[facility] LABIA [id number] [address] [address] [place] CNOVon 08-11-2024 CNOV Office Visit (FAMPWS ) ARVIND DOMÍNGUEZ ([id number]) 1975 M GRD Date Time Provider Department 08/11/24 3:40 PM NIRAJ ANDINOWS During your visit today, we recorded the following information about you: Pulse Blood pressure Weight 92/minute 118/82 72 kg Niraj Andino APRN.FIRE HYDRANT OPERATOR 08/11/2024 4:45 PM Signed Chief Complaint Patient [...] (FLONASE) 50 mcg/actuation nasal spray Use 1 Sabine in each nostril once daily. loratadine 10 [...] ICD9: V58.6 (more content not included)... Normal [facility] Comprehensive metabolic 2000 panelon 08-11-2024 Albumin [Mass/Vol] 4.5 g/dL Normal 3.9-4.9 [facility] Comment on above: Order Comment: Speci men Type: BLOOD SPECIMENOrdering Facility: [facility] Address: [address] [place] [address] Performed By: #### 5 0190-8, LIPNF, 3015-, 19729-5 ####[facility] LABCLIA [id number] [place] [address] [place] ALP [Catalytic activity/Vol] 188 U/L High 38-113 [facility] Comment on above: Order Comment: Speci men Type: BLOOD SPECIMENOrdering Facility: [facility] Address: [address] [place] [address] Performed By: #### 5 0190-8, LIPNF, 3015-3, 08059-4 ####[facility] LABCLIA [id number] [place] [id number] [place] ALT [Catalytic activity/Vol] 64 U/L High 10-54 [facility] Comment on above: Order Comment: Speci men Type: BLOOD SPECIMENOrdering Facility: [facility] Address: [address] [place] [address] Performed By: #### 5 0190-8, LIPNF, 3016-3, 36731-2 ####[facility] LABCLIA [id number] [place] [address] [place] Anion gap [Moles/Vol] 12 mmol/L Normal 8-15 [facility] Comment on above: Order Comment: Speci men Type: BLOOD SPECIMENOrdering Facility: [facility] Address: [address] [place] [address] Performed By: #### 5 0190-8, LIPNF, 3015-3, 08817-3 ####[facility] LABCLIA [id number] [place] [address] [place] AST [Catalytic activity/Vol] 50 U/L High 14-40 [facility] Comment on above: Order Comment: Speci men Type: BLOOD SPECIMENOrdering Facility: [facility] Address: [address] [place] [address] Performed By: #### 5 0190-8, LIPNF, 301-3, 41799-3 ####[facility] LABCLIA [id number] [place] [id number] [place] Bilirubin [Mass/Vol] mg/dL Low 0.2-1.3 [facility] Comment on above: Order Comment: Speci men Type: BLOOD SPECIMENOrdering Facility: [facility] Address: [address] [place] [address] Performed By: #### 5 0190-8, LIPNF, 3016-3, 34535-3 ####[facility] LABCLIA [id number] [address] [address] [place] Calcium [Mass/Vol] 9.8 mg/dL Normal 8.5-10.2 [facility] Comment on above: Order Comment: Speci men Type: BLOOD SPECIMENOrdering Facility: [facility] Address: [address] [place] [address] Performed By: #### 5 0190-8, LIPNF, 3016-3, 49465-0 ####[facility] LABCLIA [id number] [place] [address] [place] Chloride [Moles/Vol] 104 mmol/L Normal 98-107 [facility] Comment on above: Order Comment: Speci men Type: BLOOD SPECIMENOrdering Facility: [facility] Address: [address] [place] [address] Performed By: #### 5 0190-8, LIPNF, 3016-3, 99891-3 ####[facility] LABCLIA [id number] [place] [address] [place] CO2 [Moles/Vol] 24 mmol/L Normal 22-30 [facility] Comment on above: Order Comment: Speci men Type: BLOOD SPECIMENOrdering Facility: [facility] Address: [address] [place] [address] Performed By: #### 5 0190-8, LIPNF, 3016-3, 69493-4 ####[facility] LABCLIA [id number] [place] [address] [place] Creatinine [Mass/Vol] 0.88 mg/dL Normal 0.73-1.22 [facility] Comment on above: Order Comment: Speci men Type: BLOOD SPECIMENOrdering Facility: [facility] Address: [address] [place] [address] Performed By: #### 5 0190-8, LIPNF, 3016-3, 34906-0 ####[facility] LABCLIA [id number] [place] [id number] [place] Creatinine and Glomerular filtration rate.predicted panel (S/P/Bld) 106 mL/min/1.73m??? Normal >=60 [facility] Comment on above: Order Comment: Kenya roy Type: BLOOD SPECIMENOrdering Facility: [facility] Address: [address] [place] [address] Result Comment: Rashida mated Glomerular Filtration Rate [...] GFR. Performed By: #### 5 0190-8, ROM, 6-3, 58445-7 ####[facility] LABCLIA [id number] [place] [address] [place] Glucose [Mass/Vol] 103 mg/dL High 74-99 [facility] Comment on above: Order Comment: [place] roy Type: BLOOD SPECIMENOrdering Facility: [facility] Address: [address] [place] [address] Result Comment: The [place] [employer] Association (ADA) provides guidance for cutoff [...] Standards of Medical Care in Diabetes 2016, [place] [employer]. Diabetes Care. 2016.39(Suppl 1). Performed By: #### 5 0190-8, LIPKARI, 6-3, 03550-7 ####[facility] LABCLIA [id number] [address] [address] [place] Potassium [Moles/Vol] 4.3 mmol/L Normal 3.7-5.1 [facility] Comment on above: Order Comment: Speci men Type: BLOOD SPECIMENOrdering Facility: [facility] Address: [address] [place] [address] Performed By: #### 5 0190-8, LIPNF, 3016-3, 54859-1 ####[facility] LABCLIA [id number] [place] [address] [place] Protein [Mass/Vol] 7.5 g/dL Normal 6.3-8.0 [facility] Comment on above: Order Comment: Speci men Type: BLOOD SPECIMENOrdering Facility: [facility] Address: [address] [place] [address] Performed By: #### 5 0190-8, LIPNF, 3015-3, 26396-1 ####[facility] LABCLIA [id number] [place] [address] [place] Sodium [Moles/Vol] 140 mmol/L Normal 136-144 [facility] Comment on above: Order Comment: Speci men Type: BLOOD SPECIMENOrdering Facility: [facility] Address: [address] [place] [address] Performed By: #### 5 0190-8, LIPNF, 3015-3, 63786-4 ####[facility] LABCLIA [id number] [place] [address] [place] Urea nitrogen [Mass/Vol] 17 mg/dL Normal 9-24 [facility] Comment on above: Order Comment: Speci men Type: BLOOD SPECIMENOrdering Facility: [facility] Address: [address] [place] [address] Performed By: #### 5 0190-8, LIPNF, 3016-3, 94916-4 ####[facility] LABCLIA [id number] [address] [address] [place] Iron and Iron binding capaci ty panelon 08-11-2024 Iron [Mass/Vol] 41 ug/dL Normal 41-186 [facility] Comment on above: Order Comment: Speci men Type: BLOOD SPECIMENOrdering Facility: [facility] Address: [address] [place] [address] Performed By: #### 5 0190-8, LIPNF, 3016-3, 47337-7 ####[facility] LABCLIA [id number] [place] [address] [place] Iron binding capacity [Mass/Vol] 282 ug/dL Normal 232-386 [facility] Comment on above: Order Comment: Speci men Type: BLOOD SPECIMENOrdering Facility: [facility] Address: [address] [place] [address] Performed By: #### 5 0190-8, LIPNF, 3016-3, 57660-5 ####[facility] LABCLIA [id number] [place] [address] [place] Iron/TIBC [Molar ratio] 14.5 % Low 15.0-57.0 [facility] Comment on above: Order Comment: Speci men Type: BLOOD SPECIMENOrdering Facility: [facility] Address: [address] [place] [address] Performed By: #### 5 0190-8, LIPNF, 301-3, 60864-9 ####[facility] LABCLIA [id number] [place] [address] [place] LIPID PANEL, NONFASTINGon Cholesterol [Mass/Vol] 260 mg/dL High <200 [facility] Comment on above: Order Comment: Speci men Type: BLOOD SPECIMENOrdering Facility: [facility] Address: [address] [place] [address] Result Comment: <200 mg/dL, Desirable 200-239 mg/dL, Borderline high >239 mg/dL, High Performed By: #### 5 0190-8, LIPNF, 3016-3, 87254-0 ####[facility] LABCLIA [id number] [place] [address] [place] HDL CHOLESTEROL, NF 38 mg/dL Low >39 [facility] Comment on above: Order Comment: Speci men Type: BLOOD SPECIMENOrdering Facility: [facility] Address: [address] [place] [address] Result Comment: 40-5 9 mg/dL, Acceptable >59 mg/dL, High: Negative risk factor for coronary heart disease <40 mg/dL, Low: Positive risk factor for coronary heart disease Performed By: #### 5 0190-8, LIPNF, 3015-3, 22068-8 ####[facility] LABCLIA [id number] [place] [address] [place] LDL CHOLESTEROL, NF Normal [facility] Comment on above: Order Comment: Speci men Type: BLOOD SPECIMENOrdering Facility: [facility] Address: [address] [place] [address] Result Comment: Unab le to calculate due to increased Triglycerides. A Direct LDL Cholesterol measurement will not be performed. If clinically indicated, a fasting Basic Lipid Panel (LIPB) may be ordered. Performed By: #### 5 0190-8, LIPNF, 3015-3, 36643-3 ####[facility] LABCLIA [id number] [address] [place] LDL/HDL RATIO, NF Normal [facility] Comment on above: Order Comment: Speci men Type: BLOOD SPECIMENOrdering Facility: [facility] Address: [address] [place] [address] Result Comment: Unab le to calculate due to elevated Triglycerides. Reference: 1. National Cholesterol Education Program ATP III Guideline At-A-Glance Quick Desk Reference: National Heart, Lung, and Blood [place]. National Institutes of Health. 2001: NIH Publication No. 01-3305. 2. An International Atherosclerosis Society position paper: global recommendations for the management of dyslipidemia: executive summary, Atherosclerosis. 2014: 232(2):410-413. Performed By: #### 5 0190-8, LIPNF, 3016-3, ####[facility] LABCLIA [id number] [facility] [place] [id number] [place] NON HDL CHOL, NF 222 mg/dL High <130 [facility] Comment on above: Order Comment: Speci men Type: BLOOD SPECIMENOrdering Facility: [facility] Address: [address] [place] [address] Result Comment: <130 mg/dL, Optimal 130-159 mg/dL, Near optimal/above optimal 160-189 mg/dL, Borderline high 190-219 mg/dL, High >219 mg/dL, Very high Secondary prevention optimal non HDL Cholesterol levels are recommended to be <100 mg/dL Performed By: #### 5 0190-8, LIPNF, 3015-07, ####[facility] LABCLIA [id number] [place] [address] [place] T CHOL/HDL RATIO NF 6.84 mg/dL High <5.10 [facility] Comment on above: Order Comment: Speci men Type: BLOOD SPECIMENOrdering Facility: [facility] Address: [address] [place] [address] Performed By: #### 5 0190-8, LIPNF, 3015-07, ####[facility] LABCLIA [id number] [place] [address] [place] TRIGLYCERIDES, NF 749 mg/dL High <150 [facility] Comment on above: Order Comment: Speci men Type: BLOOD SPECIMENOrdering Facility: [facility] Address: [address] [place] [id number] Result Comment: <150 mg/dL, Normal 150-199 mg/dL, Borderline high 200-499 mg/dL, High >499 mg/dL, Very high Performed By: #### 5 0190-8, LIPNF, 3015-07, ####[facility] LABCLIA [id number] [place] [id number] [place] VLDL CHOLESTEROL, NF Normal [facility] Comment on above: Order Comment: Speci men Type: BLOOD SPECIMENOrdering Facility: [facility] Address: [address] [place] [address] Result Comment: Unab le to calculate due to elevated Triglycerides. Performed By: #### 5 0190-8, LIPNF, 3016-3, 05958-3 ####[facility] LABCLIA [id number] [address] [place] TSH SerPl-aCncon 08-11-2024 TSH Qn 1.020 m[IU]/L Normal 0.270-4.20 0 [facility] Comment on above: Order Comment: Speci men Type: BLOOD SPECIMENOrdering Facility: [facility] Address: [address] [place] [address] Performed By: #### 5 0190-8, LIPNF, 3016-3, 81614-4 ####[facility] LABCLIA [id number] [address] OF [facility] CNOVon 07-14-2024 CNOV Office Visit (FIDELINAWS ) ARVIND DOMÍNGUEZ ([id number]) 1975 M GRD Date Time Provider Department 07/14/24 3:20 PM NIRAJ ANDINO FAMPWS During your visit today, we recorded the following information about you: Pulse Blood pressure Weight 94/minute 116/80 71.7 kg Niraj Andino APRN.FIRE HYDRANT OPERATOR 07/14/2024 3:26 PM Signed Chief Complaint Patient [...] (FLONASE) 50 mcg/actuation nasal spray Use 1 Sabine in each nostril once daily. loratadine 10 [...] weeks would recommend follow up. Niraj Andino, BOILER OPERATOR HELPER.FIRE HYDRANT OPERATOR Allergies As of Date: 07/14/2024 (No Known [...] three times a day. Dr Chong - CARY ATTAPRYANGITE, ORAL Take by mouth. Dr Chong - Lactobac no.41/Bifidobact no.7 (PROBIOTIC-10 ORAL) Take b (more content not included)... Normal [facility] DOM[facility] ([id number]) 1975 M ZOE Date Time Provider Department 07/07/24 NIRAJ ANDINO [facility] During your visit today, we recorded the following information about you: Leann Cruz RN 07/07/2024 2:28 PM Signed Sister and [...] three times a day. Dr Chong - MILVIA T[place], ORAL Take by mouth. Dr Chong - Lactobac no.41/Bifidobact no.7 (PROBIOTIC-10 ORAL) Take by mouth. Gummies - Friend - cetirizine HCl (ZYRTEC) 10 mg chewable [...] (FLONASE) 50 mcg/actuation nasal spray Use 1 Sabine in each nostril once daily. - loratadine 10 mg dissolvable tablet Take 10 mg by mouth once daily. - OLANZapine orally disintegrating (ZYPREXA ZYDIS) 5 mg disintegrating tablet Take 5 mg by mouth daily at bedtime. - Nutritional Supplements (ENSURE PUDDING) pudg Take 113 g by mouth twice daily. Problem List As Of Date: 07/07/2024 (None) Encounter Status:Closed by Leann CRUZ on 07/07/24 [facility] CNOVon 07-01-2024 CNOV Office Visit (FAMPWS ) ARVIND DOMÍNGUEZ ([id number]) 1975 M GRD Date Time Provider Department 07/01/24 11:40 AM MEHNAZLOGDONNA KELLY During your visit today, we recorded the [...] (FLONASE) 50 mcg/actuation nasal spray Use 1 Sabine in each nostril once daily. loratadine 10 [...] discussed, verb (more content not included)... Normal [facility] XR CHEST 2V FRONTAL/LATon XR CHEST 2V [...] thoracic spine. IMPRESSION: No acute radiographic abnormality. Panel Fitter: PSCB Transcribe Date/Time: Jul 01 2024 12:41P Dictated by : DENISE STEWART MD This examination was interpreted and the report reviewed and electronically signed by: DENISE STEWART MD on Jul 01 2024 12:42PM EST [id number] Normal [facility] XR Chest PA and Lateralon IMPRESSION: No acute radiographic abnormality. Panel Fitter: [email or web address] Transcribe Date/Time: Jul 01 2024 12:41P Dictated by : DENISE STEWART MD This examination was interpreted and the report reviewed and electronically signed by: DENISE STEWART MD on Jul 01 2024 12:42PM EST DIVISION OF RADIOLOGY * * *Final [...] the thoracic spine. DIVISION OF RADIOLOGY Provider, [facility] - 07/01/2024 * * *Final Report* * [...] spine. IMPRESSION IMPRESSION: No acute radiographic abnormality. Panel Fitter: MELINDA Transcribe Date/Time: Jul 01 2024 12:41P Dictated by : DENISE STEWART MD This examination was interpreted and the report reviewed and electronically signed by: DENISE STEWART MD on Jul 01 2024 12:42PM EST [facility] Radiology Study observation (narrative) [facility] XR Chest PA and LateralOrder ed By: Ccf Provider on 07-01-2024 [facility] CNPNon 06-30-2024 CNPN Telephone (FIDELINAWS) KUNALARVIND KAUFMAN ([id number]) 1975 M GRD Date Time Provider Department 06/30/24 NIRAJ ANDINO During your visit today, we [...] chiki that order was faxed over to [email or web address] for her Holley Bashir MA Allergies As of Date: 06/30/2024 (No Known Allergies) Date Reviewed: 06/22/2024 Reviewed by: Holley Bashir MA - Fully Assessed Reason for Visit: Requesting Rx for a shower chair [Other] Primary Visit Diagnosis:Schizophreniform disorder (HCC) [F20.81] Other Visit Diagnosis:Non-verbal learning disorder [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 - loratadine 10 mg dissolvable tablet Take 10 mg by mouth once daily. - OLANZapine orally disintegrating (ZYPREXA ZYDIS) 5 mg disintegrating tablet Take 5 mg by mouth daily at bedtime. - Nutritional Supplements (ENSURE PUDDING) pudg Take 113 g by mouth twice daily. Problem List As Of Date: 06/30/2024 (None) Encounter Status:Closed by WORKMAN HOLLEY MONTES DE OCA on 06/30/24 [facility] JOSHUANon 06-23-2024 CNPN Telephone (FAMWS) ARVIND DOMÍNGUEZ ([id number]) 1975 M GRD Date Time Provider Department 06/23/24 [facility] During your visit today, we recorded the following information about you: Niraj Andino APRN.FIRE HYDRANT OPERATOR 06/23/2024 7:53 AM Signed Please let patient know their covid/flu/rsv is negative. Emperatriz Tello OCCA 06/23/2024 8:04 AM Signed TC to patients guardian, Chiki, who verbalized understanding of providers message below. [...] (FLONASE) 50 mcg/actuation nasal spray Use 1 Sabine in each nostril once daily. - loratadine 10 mg dissolvable tablet Take 10 mg by mouth once daily. - OLANZapine orally disintegrating (ZYPREXA ZYDIS) 5 mg disintegrating tablet Take 5 mg by mouth daily at bedtime. - Nutritional Supplements (ENSURE PUDDING) pudg Take 113 g by mouth twice daily. Problem List As Of Date: 06/23/2024 (None) Encounter Status:Closed by EMPERATRIZ TELLO on 06/23/24 [facility] CNOVon 06-22-2024 CNOV Office Visit (FIDELINAWS ) ARVIND DOMÍNGUEZ ([id number]) 1975 M GRD Date Time Provider Department 06/22/24 4:20 PM NIRAJ ANDINO During your visit today, we recorded the following information about you: Pulse Blood pressure Weight 84/minute 133/91 72.6 kg Niraj Andino APRN.[facility] 06/22/2024 4:37 PM Signed Chief Complaint Patient [...] (FLONASE) 50 mcg/actuation nasal spray Use 1 Sabine in each nostril once daily. loratadine 10 [...] and n (more content not included)... [facility] AND INFLUENZA A/B AND RSV PCR, ROUTINEon 06-22-2024 SARS-CoV-2 (COVID-19) RNA MICHAELA+probe Ql (Unsp spec) SARS-COV-2 (AGENT OF COVID-19) RNA: Not detected INFLUENZA A RNA: Not detected INFLUENZA B RNA: Not detected RESPIRATORY SYNCYTIAL VIRUS (RSV) RNA: Not detected Normal [facility] Comment on above: Performed By: #### C VFLRS ####[facility] [facility] LABCLIA [id number] [facility] [id number] [place] [address] [place] EGD Reporton 06-18-2024 EGD Report [facility] Medical Records Department [address] [place] [address] EGD Report MR#: [id number] Acct: [id number] Name: ARVIND DOMÍNGUEZ Rep #: [id number] : 1975 49 From: Osman Chong DO PCP: EB Patel Status:[facility] Patient Name: Arvind Domínguez Procedure Date: 06/18/2024 8:21 AM Date of : 1975 Age: 49 Procedure: Upper GI endoscopy Indications: Epigastric abdominal pain Providers: Osman hCong DO Referring MD: Eb Patel Medicines: Monitored [...] present medications. Procedure Code(s): --- Professional --- 71661, Esophagogastroduodenoscopy, flexible, transoral; with biopsy, single or multiple CPT copyright 2021 [employer]. All rights reserved. The codes documented in this report are preliminary and upon production administrative assistant review may be revised to meet current compliance requirements. Osman Chong DO 06/18/2024 8:44:37 AM This report has been signed electronically. Number of Addenda: 0 Note Initiated On: 06/18/2024 8:21 AM 06/18/24 0844 Date Osman Ordoñez Signature: Date (if indicated) CC: [employer]-C Niraj Andino; Osman Chong, Date Dictated: 06/18/24820 Date Transcribed: Panel Fitter: KIMBERLY Signed Normal [facility] H Pylori (initial)on H Pylori (initial) ------- Patient Age/Sex Location Account Attending Physician ARVIND DOMÍNGUEZ 49/M EN [id number] Osman Chong, DO Specimen: [id number] Received: 06/19/24 Status: GEETHA Martinez Num: [id number] Spec Type: IMMUNO Subm Dr: Osman Chong DO PHYSICIAN INSTITUTION [facility] [address] [place] [address] SPECIMEN INFORMATION: Tissue Source: B- Gastric body biopsy Clinical Info: Abdominal pain Specimen Number: [id number] CPT code: 79242 METHODOLOGY: Deparaffinized sections of prefer/formalin-fixed tissue or [...] developed and their performance characteristics determined by [facility] Laboratory. They may not have been cleared or approved by the U.S. Food and Drug Administration. The FDA has determined that such clearance or approval is not necessary. The above immunohistochemical/dualISH markers are ordered and reviewed by the Pathologist. INTERPRETATION: B. Gastric body, biopsy: Positive for Helicobacter pylori organisms. 06/22/2024 Signed (signature on file) Dr. Ralph Jimenez MD 06/22/24 1220 Normal [facility] Comment on above: Performed By: #### P H.PYLORI #### [facility] Laboratory [address] [facility] [place], [place], [id number] MR/POSTOP.Leslie 06-18-2024 MR/POSTOP.[facility] Medical Records Department [facility] [place] [address] Anesthesia Postop Eval I 06/18/24 0846 MR#: [id number] Acct: [id number] Name: KUNAL,ARVIND ASIF Rep #: [id number] : 1975 49 From: Theo Carbajal PCP: SEBASTIÁN PatelC Status:[facility] Y Race: C Location: [place] [address] Anesthesia: Postop Eval I Current Vital Signs [...] Anesthesia document: Postop Eval 1 completed: Yes 06/18/24 0847 Date Theo Arciniega Signature: Date CC: Signed Normal [facility] MR/[id number] 06-18-2024 MR/POSTOPAN2 [facility] Medical Records Department [address] [place] [address] Anesthesia Postop Eval II 06/18/24 1138 MR#: [id number] Acct: [id number] Name: ARVIND DOMÍNGUEZ Rep #: [id number] : 1975 49 From: Jaren Moya MD PCP: EB Patel Status:[facility] Y Race: C Location: EN Anesthesia Postop [...] Jaren Arciniega Signature: Date CC: Signed Normal [facility] Surgery Specimen Level [place] 06-18-2024 Surgery Specimen Level IV Patient Age/Sex Location Account Attending Physician ARVIND DOMÍNGUEZ 49/M EN [id number] Osman Chong DO Specimen: [id number] Received: 06/18/24 Status: GEETHA Martinez Num: [id number] Spec Type: EGD BIOPSY Subm Dr: Osman Chong, HEADER OPERATION: EGD with biopsy PRE-OP DIAGNOSIS: [...] totally submitted in one cassette. 06/19/2024 TC:2 CPT:11991e8 Patient Age/Sex Location Account Attending Physician ARVIND DOMÍNGUEZ 49/M EN [id number] Osman Cohng DO Signed (signature on file) Dr. Ralph Jimenez MD 06/22/24 1217 Normal [facility] Comment on above: Performed By: #### P DAVID #### [facility] [place], [place], [id number] Dusty 04-21-2024 ABEL Office Visit (FAMPWS ) ARVIND DOMÍNGUEZ ([id number]) 1975 M GRD Date Time Provider Department 04/21/24 11:00 AM NIRAJ ANDINO During your visit today, we recorded the following information about you: Pulse Respiration Blood pressure Weight 75/minute 14/minute 143/89 75.3 kg Niraj Andino APRN.[facility] 04/21/2024 11:18 AM Addendum Chief Complaint Patient [...] (FLONASE) 50 mcg/actuation nasal spray Use 1 Sabine in each nostril once daily. loratadine 10 [...] UNIT-TRIMETHOPRIM 1 MG/ML EYE DROPS Niraj Andino APRN.[facility] Allergies As of Date: 04/21/2024 (No Known [...] mg/mL oph (more content not included)... [facility]FIDELINAWS[facility] ARVIND DOMÍNGUEZ ([id number]) 1975 M D Date Time Provider Department 04/21/24 NIRAJ ANDINO During your visit today, we [...] (FLONASE) 50 mcg/actuation nasal spray Use 1 Sabine in each nostril once daily. - loratadine [...] Status:Closed by TAMMI SAPP on 05/18/24 Normal [facility] Gastroenterology Visit Repor ton 04-14-2024 Gastroenterology Visit Report [facility] Gastroenterology [address] [place] [address] OFFICE VISIT Date of Service: 04/14/24 MR#: [id number] Acct: [id number] Name: ARVIND DOMÍNGUEZ Rep #: [id number] : 1975 Provider: ANTHONY Matthews Age/Sex: 48/M Location: [facility] Status: Signed Intake Vital Signs 12/13/23 17:14 Height 6 ft 1 in Intake Visit Reasons: Gastroesophageal reflux disease (GERD) Chief Complaint: constipation and epigastric pain Accompanied by: Sister Allergies No Known Allergies Allergy (Verified 09/29/23 21:08) Have you fallen in the past year?: No Nurse's Note: OV 04.14.24 Pt here to establish care with [facility] for constipation, loose stools, and GERD. POA reports EGD and colonoscopy about 8 years ago. Takes pantoprazole daily. PFSH Medical History Schizophrenia GERD (gastroesophageal reflux disease) Autism Family History Mother Lung cancer Heart disease Father Lung cancer Social History household members: family Smoking Status: Never smoker HPI HPI Chief Complaint: constipation and epigastric pain Details: ARVIND DOMÍNGUEZ, is a 48 M who presents to the office today for establishment with [facility]. Pt is pretty much non verbal and [...] kellogg leve (more content not included)... [facility] Telephone (FAMPWS) ARVIND DOMÍNGUEZ ([id number]) 1975 M GRD Date Time Provider Department 04/03/24 NIRAJ ANDINO During your visit today, we recorded the following information about you: Niraj Andino APRN.CNP 04/03/2024 1:37 PM Signed Please let patient's [...] (FLONASE) 50 mcg/actuation nasal spray Use 1 Sabine in each nostril once daily. - loratadine [...] Status:Closed by MARY GIBSON on 04/03/24 Normal [facility] 25(OH)D3 [facility] 25-hydroxyvitamin D3 [Mass/Vol] 29.6 ng/mL Low 31.0-80.0 [facility] Comment on above: Order Comment: Speci men Type: BLOOD SPECIMENOrdering Facility: [facility] Address: [address] [place] [address] Result Comment: Clas sification of 25 [place] Vitamin D status: Deficiency/Insufficiency: < or = 30 ng/ml. Sufficiency/Optimal Levels: 31-80 ng/mL Toxicity: > 100 ng/mL. Test performed by chemiluminescent immunoassay. Performed By: #### 1 989-3 ####[facility] LABCLIA [id number] [place] [address] [place] CBC W Auto Differential pane l (Bld)on 04-02-2024 Basophils (Bld) [#/Vol] 0.03 10*3/uL Normal <0.11 [facility] Comment on above: Order Comment: Speci men Type: BLOOD SPECIMENOrdering Facility: [facility] Address: [address] [place] [address] Performed By: #### 5 7021-8 ####[facility] LABCLIA [id number] [place] [address] [place] Basophils/100 WBC (Bld) 0.3 % Normal [facility] Comment on above: Order Comment: Speci men Type: BLOOD SPECIMENOrdering Facility: [facility] Address: [address] [place] [address] Performed By: #### 5 7021-8 ####[facility] LABCLIA [id number] [place] [address] [place] Differential cell count method Nom (Bld) Auto Normal [facility] Comment on above: Order Comment: Speci men Type: BLOOD SPECIMENOrdering Facility: [facility] Address: [address] [place] [address] Performed By: #### 5 7021-8 ####[facility] LABCLIA [id number] [place] [address] [place] Eosinophils (Bld) [#/Vol] 1.16 10*3/uL High <0.46 [facility] Comment on above: Order Comment: Speci men Type: BLOOD SPECIMENOrdering Facility: [facility] Address: [address] [place] [address] Performed By: #### 5 7021-8 ####[facility] LABCLIA [id number] [place] [address] [place] Eosinophils/100 WBC (Bld) 13.4 % Normal [facility] Comment on above: Order Comment: Speci men Type: BLOOD SPECIMENOrdering Facility: [facility] Address: [address] [place] [address] Performed By: #### 5 7021-8 ####[facility] LABIA [id number] [place] [address] [place] Erythrocyte distribution width (RBC) [Ratio] 13.2 % Normal 11.5-15.0 [facility] Comment on above: Order Comment: Speci men Type: BLOOD SPECIMENOrdering Facility: [facility] Address: [address] [place] [address] Performed By: #### 5 7021-8 ####[facility] LABIA [id number] [place] [address] [place] Hematocrit (Bld) [Volume fraction] 44.4 % Normal 39.0-51.0 [facility] Comment on above: Order Comment: Speci men Type: BLOOD SPECIMENOrdering Facility: [facility] Address: [address] [place] [address] Performed By: #### 5 7021-8 ####[facility] LABIA [id number] [place] [address] [place] Hemoglobin (Bld) [Mass/Vol] 14.5 g/dL Normal 13.0-17.0 [facility] Comment on above: Order Comment: Speci men Type: BLOOD SPECIMENOrdering Facility: [facility] Address: [address] [place] [address] Performed By: #### 5 7021-8 ####[facility] LABIA [id number] [place] [address] [place] Immature granulocytes (Bld) [#/Vol] 0.03 10*3/uL Normal <0.10 [facility] Comment on above: Order Comment: Speci men Type: BLOOD SPECIMENOrdering Facility: [facility] Address: [address] [place] [address] Performed By: #### 5 7021-8 ####[facility] LABCLIA [id number] [place] [address] [place] Immature granulocytes/100 WBC (Bld) 0.3 % Normal [facility] Comment on above: Order Comment: Speci men Type: BLOOD SPECIMENOrdering Facility: [facility] Address: [address] [place] [address] Performed By: #### 5 7021-8 ####[facility] LABCLIA [id number] [place] [address] [place] Lymphocytes (Bld) [#/Vol] 1.86 10*3/uL Normal 1.00-4.00 [facility] Comment on above: Order Comment: Speci men Type: BLOOD SPECIMENOrdering Facility: [facility] Address: [address] [place] [address] Performed By: #### 5 7021-8 ####[facility] LABCLIA [id number] [place] [address] [place] Lymphocytes/100 WBC (Bld) 21.5 % Normal [facility] Comment on above: Order Comment: Speci men Type: BLOOD SPECIMENOrdering Facility: [facility] Address: [address] [place] [address] Performed By: #### 5 7021-8 ####[facility] LABCLIA [id number] [place] [address] [place] MCH (RBC) [Entitic mass] 28.6 pg Normal 26.0-34.0 [facility] Comment on above: Order Comment: Speci men Type: BLOOD SPECIMENOrdering Facility: [facility] Address: [address] [place] [address] Performed By: #### 5 7021-8 ####[facility] LABCLIA [id number] [place] [address] [place] MCHC (RBC) [Mass/Vol] 32.7 g/dL Normal 30.5-36.0 [facility] Comment on above: Order Comment: Speci men Type: BLOOD SPECIMENOrdering Facility: [facility] Address: [address] [place] [address] Performed By: #### 5 7021-8 ####[facility] LABIA [id number] [place] [address] [place] MCV (RBC) [Entitic vol] 87.6 fL Normal 80.0-100.0 [facility] Comment on above: Order Comment: Speci men Type: BLOOD SPECIMENOrdering Facility: [facility] Address: [address] [place] [address] Performed By: #### 5 7021-8 ####[facility] LABIA [id number] [place] [address] [place] Monocytes (Bld) [#/Vol] 0.61 10*3/uL Normal <0.87 [facility] Comment on above: Order Comment: Speci men Type: BLOOD SPECIMENOrdering Facility: [facility] Address: [address] [place] [address] Performed By: #### 5 7021-8 ####[facility] LABIA [id number] [place] [address] [place] Monocytes/100 WBC (Bld) 7.0 % Normal [facility] Comment on above: Order Comment: Speci men Type: BLOOD SPECIMENOrdering Facility: [facility] Address: [address] [place] [address] Performed By: #### 5 7021-8 ####[facility] LABCLIA [id number] [place] [address] [place] Neutrophils (Bld) [#/Vol] 4.97 10*3/uL Normal 1.45-7.50 [facility] Comment on above: Order Comment: Speci men Type: BLOOD SPECIMENOrdering Facility: [facility] Address: [address] [place] [address] Performed By: #### 5 7021-8 ####[facility] LABCLIA [id number] [place] [address] [place] Neutrophils/100 WBC (Bld) 57.5 % Normal [facility] Comment on above: Order Comment: Speci men Type: BLOOD SPECIMENOrdering Facility: [facility] Address: [address] [place] [address] Performed By: #### 5 7021-8 ####[facility] LABCLIA [id number] [place] [address] [place] Nucleated RBC (Bld) [#/Vol] 10*3/uL Normal <0.01 [facility] Comment on above: Order Comment: Speci men Type: BLOOD SPECIMENOrdering Facility: [facility] Address: [address] [place] [address] Performed By: #### 5 7021-8 ####[facility] LABIA [id number] [place] [address] [place] Nucleated RBC/100 WBC (Bld) [Ratio] 0.0 /100 WBC Normal [facility] Comment on above: Order Comment: Speci men Type: BLOOD SPECIMENOrdering Facility: [facility] Address: [address] [place] [address] Performed By: #### 5 7021-8 ####[facility] LABIA [id number] [place] [address] [place] Platelet mean volume (Bld) [Entitic vol] 11.2 fL Normal 9.0-12.7 [facility] Comment on above: Order Comment: Speci men Type: BLOOD SPECIMENOrdering Facility: [facility] Address: [address] [place] [address] Performed By: #### 5 7021-8 ####[facility] LABIA [id number] [place] [address] [place] Platelets (Bld) [#/Vol] 216 10*3/uL Normal 150-400 [facility] Comment on above: Order Comment: Speci men Type: BLOOD SPECIMENOrdering Facility: [facility] Address: [address] [place] [address] Performed By: #### 5 7021-8 ####[facility] LABCLIA [id number] [place] [address] [place] RBC (Bld) [#/Vol] 5.07 10*6/uL Normal 4.20-6.00 [facility] Comment on above: Order Comment: Speci men Type: BLOOD SPECIMENOrdering Facility: [facility] Address: [address] [place] [address] Performed By: #### 5 7021-8 ####[facility] LABCLIA [id number] [place] [address] [place] WBC (Bld) [#/Vol] 8.66 10*3/uL Normal 3.70-11.00 [facility] Comment on above: Order Comment: Speci men Type: BLOOD SPECIMENOrdering Facility: [facility] Address: [address] [place] [address] Performed By: #### 5 7021-8 ####[facility] LABCLIA [id number] [place] [address] [place] CNOVon 04-02-2024 CNOV Office Visit (ROLY ) ARVIND DOMÍNGUEZ ([id number]) 1975 M GRD Date Time Provider Department 04/02/24 2:40 PM NIRAJ ANDINO During your visit today, we recorded the following information about you: Pulse Blood pressure Weight 99/minute 137/87 73.5 kg Niraj Andino, IDALIA.FIRE HYDRANT OPERATOR 04/02/2024 2:59 PM Signed Chief Complaint Patient [...] (FLONASE) 50 mcg/actuation nasal spray Use 1 Sabine in each nostril once daily. loratadine 10 [...] - VITAMIN D 25 HYDROXY Niraj Andino APRN.[facility] Allergies As of Date: 04/02/2024 (No Known Allergies) Date Reviewed: 04/02/2024 Reviewed by: Holley Bashir MA - Fully Assessed Reason for Visit: Cough [28] Cmt: X1 week Primary Visit Diagnosis:Acute cough [R05.1] (more content not included)... Normal [facility] CNPNon 04-02-2024 [facility] (F[facility]WS[facility] ARVIND DOMÍNGUEZ ([id number]) 1975 M D Date Time Provider Department 04/02/24 NIRAJ ANDINO [facility] During your visit today, we recorded the following information about you: Niraj Andino APRN.FIRE HYDRANT OPERATOR 04/02/2024 3:55 PM Signed Please let patient [...] (FLONASE) 50 mcg/actuation nasal spray Use 1 Sabine in each nostril once daily. - loratadine [...] Status:Closed by MARY GIBSON on 04/02/24 Normal [facility] TSH SerPl-aCncon 04-02-2024 TSH Qn 0.771 m[IU]/L Normal 0.270-4.20 0 [facility] Comment on above: Order Comment: Speci men Type: BLOOD SPECIMENOrdering Facility: [facility] Address: [address] [place] [address] Performed By: #### 3 016-3 ####[facility] LABCLIA [id number] [place] [address] [place] XR CHEST 2V FRONTAL/LATon 11 -14-2024 XR CHEST 2V FRONTAL/LAT * * *Final [...] tissues: Unremarkable. IMPRESSION: No acute radiographic abnormality. Panel Fitter: MELINDA Transcribe Date/Time: Apr 02 2024 3:31P Dictated by : MARLON BHATIA MD This examination was interpreted and the report reviewed and electronically signed by: MARLON BHATIA MD on Apr 02 2024 3:32PM EST [id number] Normal [facility] XR Chest PA and Lateralon IMPRESSION: No acute radiographic abnormality. Panel Fitter: [facility] Transcribe Date/Time: Apr 02 2024 3:31P [...] soft tissues: Unremarkable. DIVISION OF RADIOLOGY Provider, Neela Aren mike [place] - 04/02/2024 * * *Final Report* * [...] Unremarkable. IMPRESSION IMPRESSION: No acute radiographic abnormality. Panel Fitter: PSCMichell Transcribe Date/Time: Apr 02 2024 3:31P Dictated by : MARLON BHATIA MD This examination was interpreted and the report reviewed and electronically signed by: MARLON BHATIA MD on Apr 02 2024 3:32PM EST [facility] Radiology Study observation (narrative) [facility] XR Chest PA and LateralOrder ed By: [facility] on [facility] (ROLY[facility] ARVIND DOMÍNGUEZ ([id number]) 1975 M GRD Date Time Provider Department 03/17/24 NIRAJ ANDINO During your visit today, we recorded the following information about you: Michelle Tijerina, RN 03/17/2024 9:42 AM Signed Patient's sister [...] off of another medication. SAMANTA Mitchell Danielle, APRN.FIRE HYDRANT OPERATOR 03/17/2024 12:16 PM Signed Noted. Allergies As [...] (FLONASE) 50 mcg/actuation nasal spray Use 1 Sabine in each nostril once daily. - loratadine 10 mg dissolvable tablet Take 10 mg by mouth once daily. - OLANZapine orally disintegrating (ZYPREXA ZYDIS) 5 mg disintegrating tablet Take 5 mg by mouth daily at bedtime. - Nutritional Supplements (ENSURE PUDDING) pudg Take 113 g by mouth twice daily. Problem List As Of Date: 03/17/2024 (None) Encounter Status:Closed by NIRAJ ANDINO on 03/17/24 [facility] 03-16-2024 [facility] ARVIND DOM[facility]NGUEZ ([id number]) 1975 M [facility] Date Time Provider Department 03/16/24 NIR[facility]INO [facility] During your visit today, we recorded the [...] 3-DOSE, AGE 20+ YR (ENGERIX-B, RECOMBIVAX HB) [[id number]] Order #: [id number] HEP B VACCINE, 3-DOSE, AGE 20+ YR (ENGERIX-B, RECOMBIVAX HB) [[id number]] Order #: [id number] FUTURE Prescriptions as of 03/17/2024 - ciprofloxacin-dexAMETHasone [...] (FLONASE) 50 mcg/actuation nasal spray Use 1 Sabine in each nostril once daily. - loratadine 10 mg dissolvable tablet Take 10 mg by mouth once daily. - OLANZapine orally disintegrating (ZYPREXA ZYDIS) 5 mg disintegrating tablet Take 5 mg by mouth daily at bedtime. - Nutritional Supplements (ENSURE PUDDING) pudg Take 113 g by mouth twice daily. Problem List As Of Date: 03/16/2024 (None) Encounter Status:Closed by CANDACE RASCON on 10/29/24 [facility] CNOVon 03-13-2024 CNOV Office Visit (FAMPWS ) ARVIND DOMÍNGUEZ ([id number]) 1975 M GRD Date Time Provider Department 03/13/24 2:20 PM NIRAJ AND[facility] During your visit today, we recorded the following information about you: Temperature Pulse Respiration Blood pressure 98.5 degrees 88/minute 14/minute 122/77 Weight 73.9 kg Niraj Andino APRN.[facility] 03/13/2024 3:05 PM Signed Chief Complaint Patient [...] (FLONASE) 50 mcg/actuation nasal spray Use 1 Sabine in each nostril once daily. loratadine 10 [...] for guardianship (more content not included)... Normal [facility] CNPNon 03-13-2024 [facility] ARVIND DOMÍNGUEZ ([id number]) 1975 M D Date Time Provider Department 03/13/24 NIRAJ ANDINO [facility] During your visit today, we recorded the following information about you: Nina Velez, SAMANTA 03/13/2024 12:49 PM Signed Pts sister called in and reports Pt was able to get in to see Dr Chong's [employer] [place] on 04/10/24. She states the DD [...] [facility] as Renyn no longer works there. She reports the last time the Pt got like this it was because he was coming down with something, one time he had Strep and another time and ear ache. Pt was scheduled with Niraj Andino [employer] today at 220 pm. Allergies As of [...] (FLONASE) 50 mcg/actuation nasal spray Use 1 Sabine in each nostril once daily. - loratadine 10 mg dissolvable tablet Take 10 mg by mouth once daily. - OLANZapine orally disintegrating (ZYPREXA ZYDIS) 5 mg disintegrating tablet Take 5 mg by mouth daily at bedtime. - Nutritional Supplements (ENSURE PUDDING) pudg Take 113 g by mouth twice daily. Problem List As Of Date: 03/13/2024 (None) Encounter Status:Closed by NINA VELEZ on 03/13/24 [facility] 03-03-2024 [facility] Nurse Visit (FAMPWS) ARVIND DOMÍNGUEZ ([id number]) 1975 M D Date Time Provider Department 03/03/24 3:45 PM [place] NURSE FAMPWS During your visit today, we recorded the [...] AGE 6MO-64YR, TRIVALENT (AFLURIA, FLULAVAL, FLUVIRIN, FLUZONE) [[id number]] Order #: [id number] Prescriptions as of 03/03/2024 - escitalopram oxalate [...] (FLONASE) 50 mcg/actuation nasal spray Use 1 Sabine in each nostril once daily. - loratadine 10 mg dissolvable tablet Take 10 mg by mouth once daily. - OLANZapine orally disintegrating (ZYPREXA ZYDIS) 5 mg disintegrating tablet Take 5 mg by mouth daily at bedtime. - Nutritional Supplements (ENSURE PUDDING) pudg Take 113 g by mouth twice daily. Problem List As Of Date: 03/03/2024 (None) Encounter Status:Closed by CANDACE RASCON on 03/03/24 [facility] 02-27-2024 [facility] Telephone (FIDELINAWS) ARVIND DOMÍNGUEZ ([id number]) 1975 M GRD Date Time Provider Department [...] Order(s):TDAP VACCINE, AGE 7+ YR (ADACEL, BOOSTRIX) [[id number]] Order #: [id number] Prescriptions as of 02/28/2024 - amoxicillin (AMOXIL) [...] (FLONASE) 50 mcg/actuation nasal spray Use 1 Sabine in each nostril once daily. - loratadine 10 mg dissolvable tablet Take 10 mg by mouth once daily. - OLANZapine orally disintegrating (ZYPREXA ZYDIS) 5 mg disintegrating tablet Take 5 mg by mouth daily at bedtime. - Nutritional Supplements (ENSURE PUDDING) pudg Take 113 g by mouth twice daily. Problem List As Of Date: 02/27/2024 (None) Encounter Status:Closed by CANDACE RASCON on 02/28/24 [facility] 02-24-2024 [facility] Telephone (ROLY) ARVIND DOMÍNGUEZ ([id number]) 1975 M GRD Date Time Provider Department 02/24/24 [facility] During your visit today, we recorded the following information about you: Niraj Andino APRN.[employer]DRANT OPERATOR 02/24/2024 5:21 PM Signed Please let Chiki [...] Wall LPN 02/26/2024 10:01 AM Addendum Chiki Gill returned call and went over notes below, scheduled nurse visit for 03/03 at 345 pm per her request. Pending orders, not sure which D-tap to pend. Radha Wall LPN 02/26/2024 10:01 AM Signed Addended by: RADHA WALL on: 02/26/2024 10:01 AM Modules accepted: Orders Niraj Andino APRN.JOSHUA 02/27/2024 8:06 AM Signed Addended by: NIRAJ ANDINO on: 02/27/2024 08:06 AM Modules accepted: Orders Allergies As of Date: 02/24/2024 (No Known Allergies) Date Reviewed: 02/20/2024 Reviewed by: Holley Bashir MA - Fully Assessed Reason for Visit: Results [95] Primary Visit Diagnosis:Encounter for immunization [Z23] Order(s):HEP B VACCINE, 3-DOSE, AGE 20+ YR (ENGERIX-B, RECOMBIVAX HB) [[id number]] Order #: [id number]: 3 Prescriptions as of 02/27/2024 - amoxicillin [...] (FLONASE) 50 mcg/actuation nasal spray Use 1 Sabine in each nostril once daily. - loratadine 10 mg dissolvable tablet Take 10 mg by mouth once daily. - OLANZapine orally disintegrating (ZYPREXA ZYDIS) 5 mg disintegrating tablet Take 5 mg by mouth daily at bedtime. - Nutritional Supplements (ENSURE PUDDING) pudg Take 113 g by mouth twice daily. Problem List As Of Date: 02/24/2024 (None) Encounter Status:Closed by LEVAR GREER on 02/26/24 [facility] XR Skull AP and Lateralon * * [...] RESULT: See impression. DIVISION OF RADIOLOGY Provider, Neela Hilario - 12/23/2023 * * *Final Report* * [...] for further evaluation. Cervical spine degenerative changes. Panel [facility] Transcribe Date/Time: Dec 23 2023 7:04P Dictated by : JASON FONSECA MD This examination was interpreted and the report reviewed and electronically signed by: JASON FONSECA MD on Dec 23 2023 7:05PM EST [facility] XR Skull AP and LateralOrder ed By: [facility]cf Provider on 12-23-2023 [facility] XR Skull AP and Lateralon Radiology Study observation (narrative) [facility] Absolute lymphocyte countOrd ered By: Kong Maddox on 09-29-2023 Lymphocytes Auto (Unsp spec) [#/Vol] 1.04 10*3/uL 0.83-4.51 [facility] Automated lymphocyte count a s percentage of total leukocytesOrdered By: Kong Maddox on 09-29-2023 Lymphocytes/100 WBC Auto (Unsp spec) 21.9 % 19-41 [facility] Basophil percentageOrdered B y: Kong Maddox on 09-29-2023 Basophils/100 WBC (Bld) 0.6 % 0-1 [facility] Bilirubin [Mass/Vol] 0.50 mg/dL 0.20-1.00 [facility] Comment on above: For patients on eltr ombopag therapy, use of Dimension [place] TBIL is not recommended. Chloride [Moles/Vol] 103 mmol/L 98-107 [facility] Eosinophils/100 WBC (Bld) 7.8 % 0-5 [facility] Glucose [Mass/Vol] 98 mg/dL 74-106 [facility] Hemoglobin (Bld) [Mass/Vol] 13.9 g/dL 13.0-16.5 [facility] Monocytes/100 WBC (Bld) 16.5 % 0-10 [facility] Neutrophils (Bld) [#/Vol] 2.5 10*3/uL 2.0-7.7 [facility] Neutrophils/100 WBC (Bld) 52.8 % 47-70 [facility] Potassium [Moles/Vol] 3.3 mmol/L 3.5-5.1 [facility] Protein [Mass/Vol] 7.0 g/dL 6.4-8.2 [facility] Sodium [Moles/Vol] 137 mmol/L 136-145 [facility] WBC (Bld) [#/Vol] 4.7 10*3/uL 4.4-11.0 [facility] Determination of erythrocyte mean corpuscular volume (MCV)Ordered By: Kong Maddox on 09-29-2023 MCV (RBC) [Entitic vol] 88.4 fL 80-94 [facility] Erythrocyte distribution wid th ratioOrdered By: Kong Maddox on 09-29-2023 Erythrocyte distribution width (RBC) [Ratio] 13.2 % 11.6-14.6 [facility] Erythrocyte distribution wid th standard deviationOrdered By: Kong Maddox on 09-29-2023 Erythrocyte distribution width (RBC) [Entitic vol] 43.0 fL 35.1-43.9 [facility] Hematocrit Auto (Bld) [Volum e fraction]Ordered By: Kong Maddox on 09-29-2023 Hematocrit (Bld) [Volume fraction] 43.3 % 40-54 [facility] Immature granulocytes/100 WB C Auto (Bld)Ordered By: Kong Maddox on 09-29-2023 Immature granulocytes/100 WBC (Bld) 0.400 % 0.0-0.9 [facility] Comment on above: IG% - Immature Granu locytes (promyelocytes, myelocytes and metamyelocytes) > 1% indicates that a LEFT SHIFT is Present. Laboratory - Chemistry and C hemistry - challengeOrdered By: Kong Maddox on 09-29-2023 Albumin/Globulin [Mass ratio] 0.9 {ratio} 0.9-2.4 [facility] ALP [Catalytic activity/Vol] 105 U/L 45-117 [facility] ALT [Catalytic activity/Vol] 66 U/L 16-61 [facility] CO2 [Moles/Vol] 27.0 mmol/L 21.0-32.0 [facility] Globulin (S) [Mass/Vol] 3.7 g/dL 2.2-4.2 [facility] Lipase [Catalytic activity/Vol] 16 U/L 13-75 [facility] Comment on above: Please note:LIPASE r evised reference range effective 22. New Lipase methodology. Expected to produce lower values than the previous assay method. NEW Reference Range: 13 - 75 U/L Urea nitrogen/Creatinine [Mass ratio] 15.7 mg/mg 10-20 [facility] Laboratory - Hematology and Cell countsOrdered By: Kong Maddox on 09-29-2023 MCH (RBC) [Entitic mass] 28.4 pg 27.0-32.0 [facility] MCHC (RBC) [Mass/Vol] 32.1 g/dL 32-36 [facility] Nucleated RBC/100 WBC (Bld) [Ratio] 0 % 0-5 [facility] Platelet mean volume (Bld) [Entitic vol] 10.7 fL 6.2-12.0 [facility] Platelets (Bld) [#/Vol] 206 10*3/uL 150-450 [facility] No Panel InformationOrdered By: Kong Maddox on 09-29-2023 Estimated Creatinine Clearance Calc 100.02 ml/min [facility] Estimated GFR (MDRD) Amer 128 mL/min >60 [facility] Comment on above: GFR Calc Estimated GFR (MDRD) Non-Af Amer 106 mL/min >60 [facility] Comment on above: Non- GFR Calc RBC Auto (Bld) [#/Vol]Ordere d By: Kong Maddox on 09-29-2023 RBC (Bld) [#/Vol] 4.90 10*6/uL 4.6-6.2 [facility] Serum or plasma calcium luci urement (mass/volume)Ordered By: Kong Maddox on 09-29-2023 Calcium [Mass/Vol] 8.5 mg/dL 8.5-10.1 [facility] Serum or plasma creatinine m easurement (mass/volume)Ordered By: Kong Maddox on 09-29-2023 Creatinine [Mass/Vol] 0.83 mg/dL 0.70-1.30 [facility] Comment on above: The validity of the calculated GFR & GFRAA in patients over 70 years has not been determined. Clinical correlation is essential. Serum or plasma urea nitroge n measurement (mass/volume)Ordered By: Kong Maddox on 09-29-2023 Urea nitrogen [Mass/Vol] 13 mg/dL 7-18 [facility] Thin prep Papanicolaou smear with manual screeningOrdered By: Kong Maddox on 09-29-2023 Thin prep Papanicolaou smear with manual screening 3.3 g/dL 3.2-5.0 [facility] Thin prep Papanicolaou smear with manual screening 29 U/L 15-37 [facility] Thin prep Papanicolaou smear with manual screening 7 5-15 [facility] UA DIP, URINE (POC)on 2023 BILIRUBIN UA (POCT) Negative Negative [facility] CLARITY UA (POCT) Clear [facility] COLOR UA (POCT) Yellow [facility] GLUCOSE UA (POCT) Negative Negative mg/dL [facility] Hemoglobin Ql (U) Negative Negative [facility] KETONE UA (POCT) Negative Negative mg/dL [facility] LEUKOCYTES UA (POCT) Negative Negative [facility] NITRITE UA (POCT) Negative Negative [facility] PH UA (POCT) 6.0 4.5 - 8.0 [facility] Protein Ql (U) Negative Negative mg/dL [facility] SPECIFIC GRAVITY UA (POCT) 1.020 1.005 - 1.030 [facility] UROBILINOGEN UA (POCT) 0.2 E.U./dL Gayatri l E.U./dL [facility] Urinalysis complete panel (U )on 09-02-2023 Bacteria LM.HPF (Urine sed) [#/Area] Negative Negative /HPF [facility] Bilirubin Ql (U) Negative Negative [facility] Clarity (Unsp spec) Clear Clear [facility] Color (U) Yellow Yellow [facility] Epithelial cells LM.HPF (Urine sed) [#/Area] None Seen [facility] Glucose Test strip (U) [Mass/Vol] Negative Negative [facility] Hemoglobin Ql (U) Negative Negative [facility] Hyaline casts (Urine sed) [#/Area] 0 /[LPF] 0 /LPF [facility] Ketones Ql (U) Negative Negative [facility] Leukocyte esterase Test strip Ql (U) Negative Negative [facility] Nitrite Ql (U) Negative Negative [facility] pH (U) 6.0 [pH] <8.5 [facility] Protein (U) [Mass/Vol] Negative Negative [facility] RBC LM.HPF (Urine sed) [#/Area] 0-2 /HPF 0-2 /HPF [facility] Specific gravity (U) [Rel density] 1.016 1.005 - 1.030 [facility] Urobilinogen Ql (U) 0.2 EU/dL 0.2-1.0 EU/dL [facility] WBC LM.HPF (Urine sed) [#/Area] 0-5 /HPF 0-5 /HPF [facility] XR Abdomen Supine and Uprigh ton 06-25-2023 IMPRESSION: Unremark able abdomen x-ray. Panel F[facility]: [facility] Transcribe Date/Time: Jun 25 2023 2:41P Dictated by : GEMMA PRATT MD This examination was interpreted and the report reviewed and electronically signed by: GEMMA PRATT MD on Jun 25 2023 2:43PM [facility] DIVISION OF RADIOLOGY * * *Final Report* [...] structures appear intact. DIVISION OF RADIOLOGY Provider, Zohreh Aren mike [place] - 06/25/2023 * * *Final Report* * [...] appear intact. IMPRESSION IMPRESSION: Unremarkable abdomen x-ray. Panel Fitter: MELINDA Transcribe Date/Time: Jun 25 2023 2:41P Dictated by : GEMMA PRATT MD This examination was interpreted and the report reviewed and electronically signed by: GEMMA PRATT MD on Jun 25 2023 2:43PM EST [facility] Radiology Study observation (narrative) [facility] XR Abdomen Supine and Uprigh tOrdered By: [facility] Provider on 06-25-2023 [facility] Influenza virus A and B and SARS-CoV-2 (COVID-19) Ag panel - Upper respiratory specimOrdered By: Kong Maddox on 01-11-2023 SARS-CoV-2 & FLU Antigen (Rapid) SARS-CoV-2 (COVID 19) [facility] Absolute lymphocyte countOrd ered By: Liudmila Mueller on 12-23-2022 Lymphocytes Auto (Unsp spec) [#/Vol] 2.18 10*3/uL 0.83-4.51 [facility] Basophil percentageOrdered B y: Liudmila Mueller on 12-23-2022 Basophils/100 WBC (Bld) 1.1 % 0-1 [facility] Bilirubin [Mass/Vol] 0.50 mg/dL 0.20-1.00 [facility] Comment on above: For patients on eltr ombopag therapy, use of Dimension [place] TBIL is not recommended. Chloride [Moles/Vol] 106 mmol/L 98-107 [facility] Eosinophils/100 WBC (Bld) 8.4 % 0-5 [facility] Glucose [Mass/Vol] 94 mg/dL 74-106 [facility] Neutrophils (Bld) [#/Vol] 4.0 10*3/uL 2.0-7.7 [facility] Neutrophils/100 WBC (Bld) 53.3 % 47-70 [facility] Potassium [Moles/Vol] 4.5 mmol/L 3.5-5.1 [facility] Comment on above: Moderate Hemolysis, Result may be falsely increased. Protein [Mass/Vol] 7.7 g/dL 6.4-8.2 [facility] Sodium [Moles/Vol] 138 mmol/L 136-145 [facility] WBC (Bld) [#/Vol] 7.6 10*3/uL 4.4-11.0 [facility] Blood erythrocytes count (nu mber/volume)Ordered By: Liudmila Mueller on 12-23-2022 RBC (Bld) [#/Vol] 4.95 10*6/uL 4.6-6.2 [facility] Blood hemoglobin measurement (mass/volume)Ordered By: Liudmila Mueller on 12-23-2022 Hemoglobin (Bld) [Mass/Vol] 13.9 g/dL 13.0-16.5 [facility] Blood lymphocytes/100 leukoc ytesOrdered By: Liudmila Mueller on 12-23-2022 Lymphocytes/100 WBC (Bld) 28.7 % 19-41 [facility] Blood monocytes/100 leukocyt esOrdered By: Liudmila Mueller on 12-23-2022 Monocytes/100 WBC (Bld) 8.0 % 0-10 [facility] Blood platelet mean volumeOr dered By: Liudmila Mueller on 12-23-2022 Platelet mean volume (Bld) [Entitic vol] 11.5 fL 6.2-12.0 [facility] Determination of erythrocyte mean corpuscular volume (MCV)Ordered By: Liudmila Mueller on 12-23-2022 MCV (RBC) [Entitic vol] 90.5 fL 80-94 [facility] Hematocrit Auto (Bld) [Volum e fraction]Ordered By: Liudmila Mueller on 12-23-2022 Hematocrit (Bld) [Volume fraction] 44.8 % 40-54 [facility] Laboratory - Chemistry and C hemistry - challengeOrdered By: Liudmila Mueller on 12-23-2022 ALP [Catalytic activity/Vol] 119 U/L 45-117 [facility] ALT [Catalytic activity/Vol] 154 U/L 16-61 [facility] CO2 [Moles/Vol] 27.0 mmol/L 21.0-32.0 [facility] Globulin (S) [Mass/Vol] 3.8 g/dL 2.2-4.2 [facility] Lipase [Catalytic activity/Vol] 27 U/L 13-75 [facility] Comment on above: Please note:LIPASE r evised reference range effective 22. New Lipase methodology. Expected to produce lower values than the previous assay method. NEW Reference Range: 13 - 75 U/L Urea nitrogen/Creatinine [Mass ratio] 21.4 mg/mg 10-20 [facility] Laboratory - Hematology and Cell countsOrdered By: Liudmila Mueller on 12-23-2022 Erythrocyte distribution width (RBC) [Entitic vol] 46.4 fL 35.1-43.9 [facility] Erythrocyte distribution width (RBC) [Ratio] 13.9 % 11.6-14.6 [facility] Immature granulocytes/100 WBC (Bld) 0.500 % 0.0-0.9 [facility] Comment on above: IG% - Immature Granu locytes (promyelocytes, myelocytes and metamyelocytes) > 1% indicates that a LEFT SHIFT is Present. MCH (RBC) [Entitic mass] 28.1 pg 27.0-32.0 [facility] Nucleated RBC/100 WBC (Bld) [Ratio] 0 % 0-5 [facility] MCHC Auto (RBC) [Mass/Vol]Or dered By: Liudmila Mueller on 12-23-2022 MCHC (RBC) [Mass/Vol] 31.0 g/dL 32-36 [facility] No Panel InformationOrdered By: Liudmila Mueller on 12-23-2022 Estimated Creatinine Clearance Calc 92.28 ml/min [facility] Estimated GFR (MDRD) Amer 135 mL/min >60 [facility] Comment on above: GFR Calc Estimated GFR (MDRD) Non-Af Amer 111 mL/min >60 [facility] Comment on above: Non- GFR Calc Platelets bldOrdered By: Chaya Mueller on 12-23-2022 Platelets (Bld) [#/Vol] 200 10*3/uL 150-450 [facility] Serum or plasma albumin luci urement (mass/volume)Ordered By: Liudmila Mueller on 12-23-2022 Albumin [Mass/Vol] 3.9 g/dL 3.2-5.0 [facility] Serum or plasma albumin/glob ulin mass ratioOrdered By: Liudmila Mueller on 12-23-2022 Albumin/Globulin [Mass ratio] 1.0 {ratio} 0.9-2.4 [facility] Serum or plasma calcium luci urement (mass/volume)Ordered By: Liudmila Mueller on 12-23-2022 Calcium [Mass/Vol] 9.0 mg/dL 8.5-10.1 [facility] Serum or plasma creatinine m easurement (mass/volume)Ordered By: Liudmila Mueller on 12-23-2022 Creatinine [Mass/Vol] 0.79 mg/dL 0.70-1.30 [facility] Comment on above: The validity of the calculated GFR & GFRAA in patients over 70 years has not been determined. Clinical correlation is essential. Serum or plasma urea nitroge n measurement (mass/volume)Ordered By: Liudmila Mueller on 12-23-2022 Urea nitrogen [Mass/Vol] 17 mg/dL 7-18 [facility] Thin prep Papanicolaou smear with manual screeningOrdered By: Liudmila Mueller on 12-23-2022 Thin prep Papanicolaou smear with manual screening 69 U/L 15-37 [facility] Comment on above: Moderate Hemolysis, Result may be falsely increased. Thin prep Papanicolaou smear with manual screening 5 5-15 [facility] Absolute lymphocyte countOrd ered By: Mookie Guo on 12-06-2022 Lymphocytes Auto (Unsp spec) [#/Vol] 1.58 10*3/uL 0.83-4.51 [facility] Basophil percentageOrdered B y: Mookie Guo on 12-06-2022 Basophils/100 WBC (Bld) 0.4 % 0-1 [facility] Eosinophils/100 WBC (Bld) 1.5 % 0-5 [facility] Neutrophils (Bld) [#/Vol] 4.4 10*3/uL 2.0-7.7 [facility] Neutrophils/100 WBC (Bld) 66.5 % 47-70 [facility] WBC (Bld) [#/Vol] 6.7 10*3/uL 4.4-11.0 [facility] Basophil percentage 0 SEEN /hpf 0-5 [facility] Chloride [Moles/Vol] 106 mmol/L 98-107 [facility] Glucose [Mass/Vol] 115 mg/dL 74-106 [facility] Comment on above: Fasting Glucose resu lt from 100 to 125 mg/dL suggests IMPAIRED HOMEOSTASIS per A.D.A. criteria. Potassium [Moles/Vol] 4.5 mmol/L 3.5-5.1 [facility] Comment on above: Moderate Hemolysis, Result may be falsely increased. Sodium [Moles/Vol] 138 mmol/L 136-145 [facility] Bilirubin Test strip Ql (U)O rdered By: Mookie Guo on 12-06-2022 Bilirubin Ql (U) Negative Negative [facility] Blood erythrocytes count (nu mber/volume)Ordered By: Mookie Guo on 12-06-2022 RBC (Bld) [#/Vol] 4.83 10*6/uL 4.6-6.2 [facility] Blood hemoglobin measurement (mass/volume)Ordered By: Mookie Guo on 12-06-2022 Hemoglobin (Bld) [Mass/Vol] 13.6 g/dL 13.0-16.5 [facility] Blood lymphocytes/100 leukoc ytesOrdered By: Mookie Howello on 12-06-2022 Lymphocytes/100 WBC (Bld) 23.7 % 19-41 [facility] Blood monocytes/100 leukocyt esOrdered By: Mookie Howello on 12-06-2022 Monocytes/100 WBC (Bld) 7.8 % 0-10 [facility] Blood platelet mean volumeOr dered By: Mookie Guo on 12-06-2022 Platelet mean volume (Bld) [Entitic vol] 11.4 fL 6.2-12.0 [facility] Determination of erythrocyte mean corpuscular volume (MCV)Ordered By: Mookie Guo on 12-06-2022 MCV (RBC) [Entitic vol] 90.3 fL 80-94 [facility] Hematocrit Auto (Bld) [Volum e fraction]Ordered By: Mookielindsey Guo on 12-06-2022 Hematocrit (Bld) [Volume fraction] 43.6 % 40-54 [facility] Ketones Test strip Ql (U)Ord ered By: Mookielindsey Guo on 12-06-2022 Ketones Ql (U) Negative Negative [facility] Laboratory - Chemistry and C hemistry - challengeOrdered By: Mookielindsey Guo on 12-06-2022 CO2 [Moles/Vol] 27.0 mmol/L 21.0-32.0 [facility] Urea nitrogen/Creatinine [Mass ratio] 15.0 mg/mg 10-20 [facility] Laboratory - Hematology and Cell countsOrdered By: Mookielindsey Guo on 12-06-2022 Erythrocyte distribution width (RBC) [Entitic vol] 45.0 fL 35.1-43.9 [facility] Erythrocyte distribution width (RBC) [Ratio] 13.6 % 11.6-14.6 [facility] Immature granulocytes/100 WBC (Bld) 0.100 % 0.0-0.9 [facility] [facility] Comment on above: IG% - Immature Granu locytes (promyelocytes, myelocytes and metamyelocytes) > 1% indicates that a LEFT SHIFT is Present. MCH (RBC) [Entitic mass] 28.2 pg 27.0-32.0 [facility] Nucleated RBC/100 WBC (Bld) [Ratio] 0 % 0-5 [facility] MCHC Auto (RBC) [Mass/Vol]Or dered By: Mookielindsey Guo on 12-06-2022 MCHC (RBC) [Mass/Vol] 31.2 g/dL 32-36 [facility] Mucus LM Ql (Urine sed)Order ed By: Mookie Guo on 12-06-2022 Mucus Ql (Urine sed) 0 SEEN /hpf [facility] Nitrite Test strip Ql (U)Ord ered By: Mookie Guo on 12-06-2022 Nitrite Ql (U) Negative Negative [facility] No Panel InformationOrdered By: Mookie Guo on 12-06-2022 Estimated Creatinine Clearance Calc 79.84 ml/min [facility] Estimated GFR (MDRD) Amer 121 mL/min >60 [facility] Comment on above: GFR Calc Estimated GFR (MDRD) Non-Af Amer 100 mL/min >60 [facility] Comment on above: Non- GFR Calc Platelets bldOrdered By: Mookie Guo on 12-06-2022 Platelets (Bld) [#/Vol] 188 10*3/uL 150-450 [facility] Protein Test strip Ql (U)Ord ered By: Mookie Guo on 12-06-2022 Protein Ql (U) Negative Negative [facility] Serum or plasma calcium luci urement (mass/volume)Ordered By: Mookie Guo on 12-06-2022 Calcium [Mass/Vol] 9.3 mg/dL 8.5-10.1 [facility] Serum or plasma creatinine m easurement (mass/volume)Ordered By: Mookie Guo on 12-06-2022 Creatinine [Mass/Vol] 0.87 mg/dL 0.70-1.30 [facility] Comment on above: The validity of the calculated GFR & GFRAA in patients over 70 years has not been determined. Clinical correlation is essential. Serum or plasma urea nitroge n measurement (mass/volume)Ordered By: Mookie Guo on 12-06-2022 Urea nitrogen [Mass/Vol] 13 mg/dL 7-18 [facility] Squamous epithelial cells de tection in urine sediment by light microscopyOrdered By: Mookie Guo on 12-06-2022 Epithelial cells.squamous LM Ql (Urine sed) 0 SEEN /hpf 0-5 [facility] Thin prep Papanicolaou smear with manual screeningOrdered By: Mookie Guo on 12-06-2022 Thin prep Papanicolaou smear with manual screening 5 5-15 [facility] Urine blood detectionOrdered By: Mookie Guo on 12-06-2022 RBC Ql (U) Negative Negative [facility] RBC Ql (U) 0 SEEN /hpf 0-5 [facility] Urine clarityOrdered By: Mookie Guo on 12-06-2022 Clarity (U) Clear Clear [facility] Urine color determinationOrd ered By: Mookie Guo on 12-06-2022 Color (U) Yellow Yellow [facility] Urine glucose detectionOrder ed By: Mookie Guo on 12-06-2022 Glucose Ql (U) Normal mg/dl Normal [facility] Urine leukocyte esterase det ection by dipstickOrdered By: Mookie Guo on 12-06-2022 Leukocyte esterase Test strip Ql (U) Negative Negative [facility] Urine pHOrdered By: Mookie portillo on 12-06-2022 pH (U) 7.0 [pH] 5.0 - 8.0 [facility] Urine sediment bacteria coun t by microscopy (number/high power field)Ordered By: Mookie Guo on 12-06-2022 Bacteria LM.HPF (Urine sed) [#/Area] 0 /[HPF] None Seen [facility] Urine specific gravity measu rementOrdered By: Mookie Guo on 12-06-2022 Specific gravity (U) [Rel density] 1.010 1.002-1.03 0 [facility] Urobilinogen Auto test strip Ql (U)Ordered By: Mookie Guo on 12-06-2022 Urobilinogen Ql (U) Normal mg/dl Normal [facility] Falls Screening (Age 18+)on 04-24-2022 Fall risk [...] TABLET IN MOUTH EVERY DAY Rx By: Keenan, Michelle R; Dispense: 90 Days ; #:90 Tablet; Refill: [...] use N (more content not included)... Normal [place] Falls Screening (Age 18+)on 01-23-2022 Fall risk [...] SPRAY IN (more content not included)... Normal [place] Falls Risk Screeningon 10-25 Adult depression screening assessment No [employer] Work Phone: Fall risk assessment a) No falls within the last year [employer] Work Phone: Laboratory - Chemistry and C hemistry - challengeon 10-25-2021 Cholesterol [Mass/Vol] 198 mg/dL [employer] Work Phone: Medicare Annual Wellness Vis iton 10-25-2021 Medicare Annual Wellness Visit *Chief Complaint subsequent medicare physical Adult Risk Screening There are no spiritual/cultural practices/values/needs that are important to know Initial Fall Risk Screening: ARVIDN has not fallen in the last 6 [...] weakness, no (more content not included)... Normal [employer] No Panel Informationon 10-25 N/A [employer] Work Phone: Never [employer] Work Phone: False [facility] Work Phone: [phone] [...] GRAN 0.2 % Normal 0.0 - 0.9 [facility] Comment on above: Result Comment: Kathy ture Granulocyte Count (IG) includes promyelocytes, myelocytes and metamyelocytes but does not include bands. Percent differential counts (%) should be interpreted in the context of the absolute cell counts (cells/L). Performed By: #### C MP #### [address] [address] Basophils (Bld) [#/Vol] 0.01 10*3/uL Normal 0.00 - 0.10 [facility] Comment on above: Performed By: #### C MP #### [facility] [address] [place] [address] Basophils/100 WBC (Bld) 0.2 % Normal 0.0 - 2.0 [facility] Comment on above: Performed By: #### C MP #### [place] [id number] [place] [address] Eosinophils (Bld) [#/Vol] 0.05 10*3/uL Normal 0.00 - 0.70 [facility] Comment on above: Performed By: #### C MP #### [address] [address] Eosinophils/100 WBC (Bld) 1.1 % Normal 0.0 - 6.0 [facility] Comment on above: Performed By: #### C MP #### [address] [address] Erythrocyte distribution width (RBC) [Ratio] 13.0 % Normal 11.5 - 14.5 [facility] Comment on above: Performed By: #### C MP #### [address] [address] Hematocrit (Bld) [Volume fraction] 46.5 % Normal 41.0 - 52.0 [facility] Comment on above: Performed By: #### C MP #### [address] [address] Hemoglobin (Bld) [Mass/Vol] 14.6 g/dL Normal 13.5 - 17.5 [facility] Comment on above: Performed By: #### C MP #### [address] [address] Lymphocytes (Bld) [#/Vol] 0.98 10*3/uL Low 1.20 - 4.80 [facility] Comment on above: Performed By: #### C MP #### [address] [address] Lymphocytes/100 WBC (Bld) 22.0 % Normal 13.0 - 44.0 [facility] Comment on above: Performed By: #### C MP #### [address] [address] MCHC (RBC) [Mass/Vol] 31.4 g/dL Low 32.0 - 36.0 [facility] Comment on above: Performed By: #### C MP #### [address] [address] MCV (RBC) [Entitic vol] 89 fL Normal 80 - 100 [facility] Comment on above: Performed By: #### C MP #### [address] [address] Monocytes (Bld) [#/Vol] 0.33 10*3/uL Normal 0.10 - 1.00 [facility] Comment on above: Performed By: #### C MP #### [address] [address] Monocytes/100 WBC (Bld) 7.4 % Normal 2.0 - 10.0 [facility] Comment on above: Performed By: #### C MP #### [address] [address] Neutrophils (Bld) [#/Vol] 3.08 10*3/uL Normal 1.20 - 7.70 [facility] Comment on above: Performed By: #### C MP #### [address] [address] Neutrophils/100 WBC (Bld) 69.1 % Normal 40.0 - 80.0 [facility] Comment on above: Performed By: #### C MP #### [address] [address] Platelets (Bld) [#/Vol] 182 10*3/uL Normal 150 - 450 [facility] Comment on above: Performed By: #### C MP #### [address] [address] RBC 5.21 x10E12/L Normal 4.50 - 5.90 [facility] Comment on above: Performed By: #### C MP #### [address] [address] WBC (Bld) [#/Vol] 4.5 10*3/uL Normal 4.4 - 11.3 [facility] Comment on above: Performed By: #### C MP #### [address] [address] COMPREHENSIVE PANELon 2021 Albumin [Mass/Vol] 4.9 g/dL Normal 3.4 - 5.0 [facility] Comment on above: Performed By: #### C MP #### [address] [address] ALP [Catalytic activity/Vol] 79 U/L Normal 33 - 120 [facility] Comment on above: Performed By: #### C MP #### [address] [address] ALT [Catalytic activity/Vol] 22 U/L Normal 10 - 52 [facility] Comment on above: Result Comment: Flori ents treated with Sulfasalazine may generate falsely decreased results for ALT. Performed By: #### C MP #### [address] [address] Anion gap [Moles/Vol] 11 mmol/L Normal 10 - 20 [facility] Comment on above: Performed By: #### C MP #### [address] [address] AST [Catalytic activity/Vol] 19 U/L Normal 9 - 39 [facility] Comment on above: Performed By: #### C MP #### [address] [address] Bilirubin [Mass/Vol] 0.6 mg/dL Normal 0.0 - 1.2 [facility] Comment on above: Performed By: #### C MP #### [address] [address] Calcium [Mass/Vol] 9.7 mg/dL Normal 8.6 - 10.3 [facility] Comment on above: Performed By: #### C MP #### [address] [address] Chloride [Moles/Vol] 102 mmol/L Normal 98 - 107 [facility] Comment on above: Performed By: #### C MP #### [address] [address] Creatinine [Mass/Vol] 0.80 mg/dL Normal 0.50 - 1.30 [facility] Comment on above: Performed By: #### C MP #### [address] [address] eGFR MALE >90 Normal >90 [facility] Comment on above: Result Comment: CALC ULATIONS OF ESTIMATED GFR ARE PERFORMED USING THE 2020 CKD-EPI STUDY REFIT EQUATION WITHOUT THE RACE VARIABLE FOR THE IDMS-TRACEABLE CREATININE METHODS. https://jasn.asnjournals.org/content//ASN.32914 [address] Performed By: #### C MP #### [address] [address] Glucose [Mass/Vol] 99 mg/dL Normal 74 - 99 [facility] Comment on above: Performed By: #### C MP #### [address] [address] HCO3 (Bld) [Moles/Vol] 27 mmol/L Normal 21 - 32 [facility] Comment on above: Performed By: #### C MP #### [address] [address] Potassium [Moles/Vol] 3.9 mmol/L Normal 3.5 - 5.3 [facility] Comment on above: Performed By: #### C MP #### [address] [address] Protein [Mass/Vol] 7.8 g/dL Normal 6.4 - 8.2 [facility] Comment on above: Performed By: #### C MP #### [address] [address] Sodium [Moles/Vol] 136 mmol/L Normal 136 - 145 [facility] Comment on above: Performed By: #### C MP #### [address] [address] Urea nitrogen [Mass/Vol] 17 mg/dL Normal 6 - 23 [facility] Comment on above: Performed By: #### C MP #### [address] [address] Complete Blood Count + Diffe rentialon 07-26-2021 Basophils/100 WBC (Bld) 0.2 % 0.0 - 2.0 [employer] Work Phone: Erythrocyte distribution width (RBC) [Ratio] 13.0 % See Below [employer] Work Phone: Comment on above: Reference Range: 11. 5 - 14.5 Hematocrit (Bld) [Volume fraction] 46.5 % See Below [employer] Work Phone: Comment on above: Reference Range: 41. 0 - 52.0 Hemoglobin (Bld) [Mass/Vol] 14.6 g/dL See Below [employer] Work Phone: Comment on above: Reference Range: 13. 5 - 17.5 Lymphocytes/100 WBC (Bld) 22.0 % See Below [employer] Work Phone: Comment on above: Reference Range: 13. 0 - 44.0 MCHC (RBC) [Mass/Vol] 31.4 g/dL below low threshold See Below [employer] Work Phone: Comment on above: Reference Range: 32. 0 - 36.0 MCV (RBC) [Entitic vol] 89 fL 80 - 100 [employer] Work Phone: Monocytes/100 WBC (Bld) 7.4 % 2.0 - 10.0 [employer] Work Phone: Neutrophils/100 WBC (Bld) 69.1 % See Below [employer] Work Phone: Comment on above: Reference Range: 40. 0 - 80.0 Platelets (Bld) [#/Vol] 182 10*3/uL 150 - 450 [employer] Work Phone: RBC (Bld) [#/Vol] 5.21 {x10E12/L} See Below [employer] Work Phone: Comment on above: Reference Range: 4.5 0 - 5.90 WBC (Bld) [#/Vol] 4.5 10*3/uL 4.4 - 11.3 [employer] Work Phone: Complete Blood Count + Differential 0.01 {x10E9/L} See Below [employer] Work Phone: Comment on above: Reference Range: 0.0 0 - 0.10 Complete Blood Count + Differential 0.05 {x10E9/L} See Below [employer] Work Phone: Comment on above: Reference Range: 0.0 0 - 0.70 Complete Blood Count + Differential 0.33 {x10E9/L} See Below [employer] Work Phone: Comment on above: Reference Range: 0.1 0 - 1.00 Complete Blood Count + Differential 0.98 {x10E9/L} below low threshold See Below [employer] Work Phone: Comment on above: Reference Range: 1.2 0 - 4.80 Complete Blood Count + Differential 3.08 {x10E9/L} See Below [employer] Work Phone: Comment on above: Reference Range: 1.2 0 - 7.70 Complete Blood Count + Differential 1.1 % 0.0 - 6.0 [employer] Work Phone: Complete Blood Count + Differential 0.2 % 0.0 - 0.9 [employer] Phone: Comment on above: Immature Granulocyte Count (IG) includes promyelocytes, myelocytes and metamyelocytes but does not include bands. Percent differential counts (%) should be interpreted in the context of the absolute cell counts (cells/L). Falls Risk Screeningon 07-26 Fall risk assessment a) No falls within the last year [employer] Phone: HEMOGLOBIN A1Con 07-26-2021 Glucose [Mass/Vol] 108 mg/dL Normal [facility] Comment on above: Performed By: #### C MP #### [address] [address] HbA1c (Bld) [Mass fraction] 5.4 % Normal [facility] Comment on above: Result Comment: Diag nosis of Diabetes-Adults Non-Diabetic: < or = 5.6% Increased risk for developing diabetes: 5.7-6.4% Diagnostic of diabetes: > or = 6.5% . Monitoring of Diabetes Age (y) Therapeutic Goal (%) Adults: >18 <7.0 Pediatrics: 13-18 <7.5 7-12 <8.0 0- 6 7.5-8.5 [place] [employer]. Diabetes Care 33(S1), May 2009. Performed By: #### C MP #### [facility] [address] [place] [address] Hemoglobin A1Con 07-26-2021 Glucose [Mass/Vol] 108 mg/dL Adelina bonilla Work Phone: HbA1c (Bld) [Mass fraction] 5.4 % [facility] Work Phone: Comment on above: Diagnosis of Diabete s-Adults Non-Diabetic: < or = 5.6% Increased risk for developing diabetes: 5.7-6.4% Diagnostic of diabetes: > or = 6.5%. Monitoring of Diabetes Age (y) Therapeutic Goal (%) Adults: >18 <7.0 Pediatrics: 13-18 <7.5 7-12 <8.0 0- 6 7.5-8.5 [place] [employer]. Diabetes Care 33(S1), May 2009. LIPID PANEL (CORONARY RISK 2 )on 07-26-2021 Cholesterol [Mass/Vol] 198 mg/dL Normal 0 - 199 [facility] Comment on above: Result Comment: . AGE [...] dosing. Performed By: #### L IPID #### [address] [address] Cholesterol in HDL [Mass/Vol] 57.0 mg/dL Normal [facility] Comment on above: Result Comment: . AGE VERY LOW LOW NORMAL HIGH 0-19 Y < 35 < 40 40-45 ---- 20-24 Y ---- < 40 >45 ---- >24 Y ---- < 40 40-60 >60 . Performed By: #### L IPID #### [address] [address] Cholesterol in LDL [Mass/Vol] 126 mg/dL High 0 - 99 [facility] Comment on above: Result Comment: . NEAR BORD AGE DESIRABLE OPTIMAL HIGH HIGH VERY HIGH 0-19 Y 0 - 109 --- 110-129 >/= 130 ---- 20-24 Y 0 - 119 --- 120-159 >/= 160 ---- >24 Y 0 - 99 100-129 130-159 160-189 >/=190 . Performed By: #### L IPID #### [address] [address] Cholesterol in VLDL [Mass/Vol] 15 mg/dL Normal 0 - 40 [facility] Comment on above: Performed By: #### L IPID #### [address] [address] Cholesterol.total/Chol esterol in HDL [Mass ratio] 3.5 {ratio} Normal [facility] Comment on above: Result Comment: REF VALUES DESIRABLE < 3.4 HIGH RISK > 5.0 Performed By: #### L IPID #### [address] [address] Triglyceride [Mass/Vol] 76 mg/dL Normal 0 - 149 [facility] Comment on above: Result Comment: . AGE [...] dosing. Performed By: #### L IPID #### [address] [address] Laboratory - Chemistry and C hemistry - challengeon 07-26-2021 Albumin BCP dye [Mass/Vol] 4.9 g/dL 3.4 - 5.0 -[facility] Work Phone: ALP [Catalytic activity/Vol] 79 U/L 33 - 120 -[facility] Work Phone: ALT With P-5'-P [Catalytic activity/Vol] 22 U/L 10 - 52 -[facility] Work Phone: Comment on above: Patients treated wit h Sulfasalazine may generate falsely decreased results for ALT. Anion gap [Moles/Vol] 11 mmol/L 10 - 20 [employer] Work Phone: AST With P-5'-P [Catalytic activity/Vol] 19 U/L 9 - 39 -Keen[facility] Work Phone: Bilirubin [Mass/Vol] 0.6 mg/dL 0.0 - 1.2 [facility] Work Phone: Calcium [Mass/Vol] 9.7 mg/dL 8.6 - 10.3 [employer] [facility] Work Phone: Chloride [Moles/Vol] 102 mmol/L 98 - 107 [employer] [facility] Work Phone: CO2 [Moles/Vol] 27 mmol/L 21 - 32 [employer] Work Phone: Creatinine [Mass/Vol] 0.80 mg/dL See Below [employer] Work Phone: Comment on above: Reference Range: 0.5 0 - 1.30 Glucose [Mass/Vol] 99 mg/dL 74 - 99 [employer] [facility] Work Phone: Potassium [Moles/Vol] 3.9 mmol/L 3.5 - 5.3 [employer] Work Phone: Protein [Mass/Vol] 7.8 g/dL 6.4 - 8.2 [employer] [facility] Work Phone: Sodium [Moles/Vol] 136 mmol/L 136 - 145 [employer] [facility] Work Phone: TSH Qn 0.42 m[IU]/L below low threshold See Below [employer] Work Phone: Comment on above: Reference Range: 0.4 4 - 3.98 TSH testing is performed using different testing methodology at [facility] than at other [facility]. Direct result comparisons should only be made within the same method. Urea nitrogen [Mass/Vol] 17 mg/dL 6 - 23 [employer] Phone: Lipid Panelon 07-26-2021 Cholesterol [Mass/Vol] 198 mg/dL 0 - 199 [employer] Work Phone: Comment on above: . AGE [...] dosing. Cholesterol in HDL [Mass/Vol] 57.0 mg/dL [employer] Phone: Comment on above: . AGE VERY LOW LOW N ORMAL HIGH 0-19 Y < 35 < 40 40-45 ---- 20-24 Y ---- < 40 >45 ---- >24 Y ---- < 40 40-60 >60. Cholesterol in LDL [Mass/Vol] 126 mg/dL above high threshold 0 - 99 [employer] Phone: Comment on above: . NEAR BORD AGE GINA RABLE OPTIMAL HIGH HIGH VERY HIGH 0-19 Y 0 - 109 --- 110-129 >/= 130 ---- 20-24 Y 0 - 119 --- 120-159 >/= 160 ---- >24 Y 0 - 99 100-129 130-159 160-189 >/=190. Cholesterol.total/Chol esterol in HDL [Mass ratio] 3.5 {ratio} [employer] Phone: Comment on above: REF VALUESDESIRABLE < 3.4HIGH RISK > 5.0 Triglyceride [Mass/Vol] 76 mg/dL 0 - 149 [employer] Work Phone: Comment on above: . AGE [...] Lipid Panel 15 mg/dL 0 - 40 [employer] Phone: No Panel Informationon 07-26 >90 >90 [employer] Work Phone: Comment on above: CALCULATIONS OF RASHIDA MATED GFR ARE PERFORMED USING THE 2020 CKD-EPI STUDY REFIT EQUATION WITHOUT THE RACE VARIABLE FOR THE IDMS-TRACEABLE CREATININE METHODS.https://jasn.asnjournals.org/content/early//A SN.1919371090 Office Visit (Internal Medic ine)on 07-26-2021 Follow-up [...] routine (V (more content not included)... [facility] T4 - Free Thyroxine, Serumon 07-26-2021 Free T4 [Mass/Vol] 1.10 ng/dL See Below [employer] Work Phone: Comment on above: Reference Range: 0.6 1 - 1.12 Thyroxine Free testing is performed using different testing methodology at [facility] than at other [facility]. Direct result comparisons should only be [...] THYROXINE,FREE 1.10 ng/dL Normal 0.61 - 1.12 [facility] Comment on above: Result Comment: Thyr oxine Free testing is performed using different testing methodology at [facility] than at other [facility]. Direct result comparisons should only be [...] draw. Performed By: #### T 4FRE #### [address] [address] TSH WITH REFLEX TO FREE T4 I F ABNORMALon 07-26-2021 TSH Qn 0.42 m[IU]/L Low 0.44 - 3.98 [facility] Comment on above: Result Comment: TSH testing is performed using different testing methodology at [facility] than at other [facility]. Direct result comparisons should only be made within the same method. Performed By: #### C MP #### [address] [address] VITAMIN D, 25-HYDROXYon VITAMIN D, 25-HYDROXY 38 ng/mL Normal [facility] Comment on above: Result Comment: . DEFICIENCY: < 20 NG/ML INSUFFICIENCY: 20-29 NG/ML SUFFICIENCY: 30-100 NG/ML THIS ASSAY ACCURATELY QUANTIFIES THE SUM OF VITAMIN D3, 25-HYDROXY AND VIT D2,25-HYDROXY. Performed By: #### V TDOH #### [facility] [address] [address] Vitamin D 25-Hydroxyon 07-26 25-hydroxyvitamin D3 [Mass/Vol] 38 ng/mL [employer] Work Phone: Comment on above: .DEFICIENCY: < 20 NG /MLINSUFFICIENCY: 20-29 NG/MLSUFFICIENCY: 30-100 NG/MLTHIS ASSAY ACCURATELY QUANTIFIES THE SUM OFVITAMIN D3, 25-HYDROXY AND VIT D2,25-HYDROXY. CBC AND DIFFERENTIALon 09-20 % AUTOMATED IMMATURE GRAN 0.2 % Normal 0.0 - 0.9 [facility] Comment on above: Result Comment: Kathy ture Granulocyte Count (IG) includes promyelocytes, myelocytes and metamyelocytes but does not include bands. Percent differential counts (%) should be interpreted in the context of the absolute cell counts (cells/L). Performed By: #### C BCDF #### [address] [address] Basophils (Bld) [#/Vol] 0.02 10*3/uL Normal 0.00 - 0.10 [facility] Comment on above: Performed By: #### C BCDF #### [address] [address] Basophils/100 WBC (Bld) 0.4 % Normal 0.0 - 2.0 [facility] Comment on above: Performed By: #### C BCDF #### [address] [address] Eosinophils (Bld) [#/Vol] 0.04 10*3/uL Normal 0.00 - 0.70 [facility] Comment on above: Performed By: #### C BCDF #### [address] [address] Eosinophils/100 WBC (Bld) 0.9 % Normal 0.0 - 6.0 [facility] Comment on above: Performed By: #### C BCDF #### [address] [address] Erythrocyte distribution width (RBC) [Ratio] 13.1 % Normal 11.5 - 14.5 [facility] Comment on above: Performed By: #### C BCDF #### [address] [address] Hematocrit (Bld) [Volume fraction] 46.0 % Normal 41.0 - 52.0 [facility] Comment on above: Performed By: #### C BCDF #### [address] [address] Hemoglobin (Bld) [Mass/Vol] 14.5 g/dL Normal 13.5 - 17.5 [facility] Comment on above: Performed By: #### C BCDF #### [address] [address] Lymphocytes (Bld) [#/Vol] 1.43 10*3/uL Normal 1.20 - 4.80 [facility] Comment on above: Performed By: #### C BCDF #### [address] [address] Lymphocytes/100 WBC (Bld) 30.5 % Normal 13.0 - 44.0 [facility] Comment on above: Performed By: #### C BCDF #### [address] [address] MCHC (RBC) [Mass/Vol] 31.5 g/dL Low 32.0 - 36.0 [facility] Comment on above: Performed By: #### C BCDF #### [address] [address] MCV (RBC) [Entitic vol] 91 fL Normal 80 - 100 [facility] Comment on above: Performed By: #### C BCDF #### [address] [address] Monocytes (Bld) [#/Vol] 0.45 10*3/uL Normal 0.10 - 1.00 [facility] Comment on above: Performed By: #### C BCDF #### [address] [address] Monocytes/100 WBC (Bld) 9.6 % Normal 2.0 - 10.0 [facility] Comment on above: Performed By: #### C BCDF #### [address] [address] Neutrophils (Bld) [#/Vol] 2.74 10*3/uL Normal 1.20 - 7.70 [facility] Comment on above: Performed By: #### C BCDF #### [address] [address] Neutrophils/100 WBC (Bld) 58.4 % Normal 40.0 - 80.0 [facility] Comment on above: Performed By: #### C BCDF #### [address] [address] Platelets (Bld) [#/Vol] 174 10*3/uL Normal 150 - 450 [facility] Comment on above: Performed By: #### C BCDF #### [address] [address] RBC 5.04 x10E12/L Normal 4.50 - 5.90 [facility] Comment on above: Performed By: #### C BCDF #### [address] [address] WBC (Bld) [#/Vol] 4.7 10*3/uL Normal 4.4 - 11.3 [facility] Comment on above: Performed By: #### C BCDF #### [address] [address] [address] COMPREHENSIVE PANELon 2020 Albumin [Mass/Vol] 4.6 g/dL Normal 3.4 - 5.0 [facility] Comment on above: Performed By: #### C MP #### [address] [address] ALP [Catalytic activity/Vol] 75 U/L Normal 33 - 120 [facility] Comment on above: Performed By: #### C MP #### [address] [address] ALT [Catalytic activity/Vol] 39 U/L Normal 10 - 52 [facility] Comment on above: Result Comment: Flori ents treated with Sulfasalazine may generate falsely decreased results for ALT. Performed By: #### C MP #### [address] [address] Anion gap [Moles/Vol] 14 mmol/L Normal 10 - 20 [facility] Comment on above: Performed By: #### C MP #### [address] [address] AST [Catalytic activity/Vol] 30 U/L Normal 9 - 39 [facility] Comment on above: Performed By: #### C MP #### [address] [address] Bilirubin [Mass/Vol] 0.4 mg/dL Normal 0.0 - 1.2 [facility] Comment on above: Performed By: #### C MP #### [address] [address] Calcium [Mass/Vol] 9.8 mg/dL Normal 8.6 - 10.3 [facility] Comment on above: Performed By: #### C MP #### [address] [address] Chloride [Moles/Vol] 104 mmol/L Normal 98 - 107 [facility] Comment on above: Performed By: #### C MP #### [address] [address] Creatinine [Mass/Vol] 0.72 mg/dL Normal 0.50 - 1.30 [facility] Comment on above: Performed By: #### C MP #### [address] [address] GFR- AM. >60 Normal >60 [facility] Comment on above: Result Comment: CALC ULATIONS OF ESTIMATED GFR ARE PERFORMED USING THE MDRD STUDY EQUATION FOR THE IDMS-TRACEABLE CREATININE METHODS. CLIN CHEM 2007;53:766-72 Performed By: #### C MP #### [address] [address] GFR-NON AM. >60 Normal >60 [facility] Comment on above: Performed By: #### C MP #### [address] [address] Glucose [Mass/Vol] 96 mg/dL Normal 74 - 99 [facility] Comment on above: Performed By: #### C MP #### [address] [address] HCO3 (Bld) [Moles/Vol] 25 mmol/L Normal 21 - 32 [facility] Comment on above: Performed By: #### C MP #### [address] [address] Potassium [Moles/Vol] 4.0 mmol/L Normal 3.5 - 5.3 [facility] Comment on above: Performed By: #### C MP #### [address] [address] Protein [Mass/Vol] 7.3 g/dL Normal 6.4 - 8.2 [facility] Comment on above: Performed By: #### C MP #### [address] [address] Sodium [Moles/Vol] 139 mmol/L Normal 136 - 145 [facility] Comment on above: Performed By: #### C MP #### [address] [address] Urea nitrogen [Mass/Vol] 17 mg/dL Normal 6 - 23 [facility] Comment on above: Performed By: #### C MP #### [address] [address] HEMOGLOBIN A1Con 09-20-2020 Glucose [Mass/Vol] 105 mg/dL Normal [facility] Comment on above: Performed By: #### H BA1E #### [facility] [address] [place] [address] HbA1c (Bld) [Mass fraction] 5.3 % Normal [facility] Comment on above: Result Comment: Diag nosis of Diabetes-Adults Non-Diabetic: < or = 5.6% Increased risk for developing diabetes: 5.7-6.4% Diagnostic of diabetes: > or = 6.5% . Monitoring of Diabetes Age (y) Therapeutic Goal (%) Adults: >18 <7.0 Pediatrics: 13-18 <7.5 7-12 <8.0 0- 6 7.5-8.5 [employer]. Diabetes Care 33(S1), May 2009. Performed By: #### H BA1E #### [facility] [address] [place] [address] LIPID PANEL (CORONARY RISK 2 )on 09-20-2020 Cholesterol [Mass/Vol] 206 mg/dL High 0 - 199 [facility] Comment on above: Result Comment: . AGE [...] dosing. Performed By: #### L IPID #### [id number] [place] [address] Cholesterol in HDL [Mass/Vol] 57.0 mg/dL Normal [facility] Comment on above: Result Comment: . AGE VERY LOW LOW NORMAL HIGH 0-19 Y < 35 < 40 40-45 ---- 20-24 Y ---- < 40 >45 ---- >24 Y ---- < 40 40-60 >60 . Performed By: #### L IPID #### [id number] [place] [address] Cholesterol in LDL [Mass/Vol] 131 mg/dL High 0 - 99 [facility] Comment on above: Result Comment: . NEAR BORD AGE DESIRABLE OPTIMAL HIGH HIGH VERY HIGH 0-19 Y 0 - 109 --- 110-129 >/= 130 ---- 20-24 Y 0 - 119 --- 120-159 >/= 160 ---- >24 Y 0 - 99 100-129 130-159 160-189 >/=190 . Performed By: #### L IPID #### [id number] [place] [address] Cholesterol in VLDL [Mass/Vol] 18 mg/dL Normal 0 - 40 [facility] Comment on above: Performed By: #### L IPID #### [address] [address] Cholesterol.total/Chol esterol in HDL [Mass ratio] 3.6 {ratio} Normal [facility] Comment on above: Result Comment: REF VALUES DESIRABLE < 3.4 HIGH RISK > 5.0 Performed By: #### L IPID #### [address] [address] Triglyceride [Mass/Vol] 91 mg/dL Normal 0 - 149 [facility] Comment on above: Result Comment: . AGE [...] dosing. Performed By: #### L IPID #### [address] [address] TSH WITH REFLEX TO FREE T4 I F ABNORMALon 09-20-2020 TSH Qn 0.77 m[IU]/L Normal 0.44 - 3.98 [facility] Comment on above: Result Comment: TSH testing is performed using different testing methodology at [facility] than at other [facility]. Direct result comparisons should only be made within the same method. Performed By: #### T HYDS #### [address] [address] VITAMIN D, 25-HYDROXYon VITAMIN D, 25-HYDROXY 34 ng/mL Normal [facility] Comment on above: Result Comment: . DEFICIENCY: < 20 NG/ML INSUFFICIENCY: 20-29 NG/ML SUFFICIENCY: 30-100 NG/ML THIS ASSAY ACCURATELY QUANTIFIES THE SUM OF VITAMIN D3, 25-HYDROXY AND VIT D2,25-HYDROXY. Performed By: #### V TDOH #### [facility] [address] [address] Vital Signs Date Time Vital Sign Value Performing Clinician Facility 01-12-2025 10:11-0400 Body mass index (BMI) [Ratio] 22.81 kg/m2 Lorraine CRUZ-C Work Phone: [facility] 01-12-2025 10:11-0400 Body temperature 97.5 [degF] Lorraine CRUZ-C Work Phone: [facility] 01-12-2025 10:11-0400 Body weight 72.12 kg Lorraine CRUZ-C Work Phone: [facility] 01-12-2025 10:11-0400 Diastolic blood pressure 86 mm[Hg] Lorraine CRUZ-C Work Phone: [facility] 01-12-2025 10:11-0400 Heart rate 82 /min Lorraine CRUZ-C Work Phone: [facility] 01-12-2025 10:11-0400 Respiratory rate 16 /min Lorraine CRUZ-C Work Phone: [facility] 01-12-2025 10:11-0400 SaO2% (BldA) [Mass fraction] 96 % Lorraine CRUZ-C Work Phone: [facility] 01-12-2025 10:11-0400 Systolic blood pressure 122 mm[Hg] Lorraine CRUZ-C Work Phone: [facility] 12-09-2024 19:59-0400 Body temperature 98 [degF] Niraj Andino [employer] Work Phone: [facility] 12-09-2024 19:59-0400 Diastolic blood pressure 89 mm[Hg] Niraj Andino [employer] Work Phone: 3(462)[phone] [place] [address] 12-09-2024 19:59-0400 Heart rate 79 /min Niraj Andino [employer] Work Phone: 1(408)[phone] [place] [address] 12-09-2024 19:59-0400 Respiratory rate 16 /min Niraj Andino [employer] Work Phone: 7(273)714-124815 [place] [address] 12-09-2024 19:59-0400 SaO2% (BldA) [Mass fraction] 99 % Niraj Andino [employer] Work Phone: 1(637)541-822015 [place] [address] 12-09-2024 19:59-0400 Systolic blood pressure 128 mm[Hg] Niraj Andino [employer] Work Phone: 5(958)118-936515 [place] [address] 12-09-2024 14:18-0400 Body height 185.42 cm Niraj Andino [employer] Work Phone: 4(719)023-985515 [place] [address] 12-09-2024 14:18-0400 Body mass index (BMI) [Ratio] 21.3 kg/m2 Niraj Andion [employer] Work Phone: 2(629)755-121315 [place] [address] 12-09-2024 14:18-0400 Body weight 73.34 kg Niraj Andino [employer] Work Phone: 9(065)[phone] [place] [address] 11-16-2024 14:19-0400 Body mass index (BMI) [Ratio] 23 kg/m2 Alize Swank BOILER OPERATOR HELPER.FIRE HYDRANT OPERATOR Work Phone: [facility] 11-16-2024 14:19-0400 Body temperature 97.2 [degF] Alize Swank BOILER OPERATOR HELPER.FIRE HYDRANT OPERATOR Work Phone: [facility] 11-16-2024 14:19-0400 Body weight 72.7 kg Alize Swank BOILER OPERATOR HELPER.FIRE HYDRANT OPERATOR Work Phone: [facility] 11-16-2024 14:19-0400 Diastolic blood pressure 72 mm[Hg] Alize Swank BOILER OPERATOR HELPER.FIRE HYDRANT OPERATOR Work Phone: [facility] 11-16-2024 14:19-0400 Heart rate 86 /min Alize Swank BOILER OPERATOR HELPER.FIRE HYDRANT OPERATOR Work Phone: [facility] 11-16-2024 14:19-0400 Respiratory rate 16 /min Alize Swank BOILER OPERATOR HELPER.FIRE HYDRANT OPERATOR Work Phone: [facility] 11-16-2024 14:19-0400 SaO2% (BldA) [Mass fraction] 97 % Alize Swank BOILER OPERATOR HELPER.FIRE HYDRANT OPERATOR Work Phone: [facility] 11-16-2024 14:19-0400 Systolic blood pressure 110 mm[Hg] Alize Swank BOILER OPERATOR HELPER.FIRE HYDRANT OPERATOR Work Phone: [facility] 10-02-2024 11:24-0400 Body mass index (BMI) [Ratio] 22.78 kg/m2 Niraj Andino BOILER OPERATOR HELPER.FIRE HYDRANT OPERATOR Work Phone: [facility] 10-02-2024 11:24-0400 Body weight 72 kg Niraj Andino BOILER OPERATOR HELPER.FIRE HYDRANT OPERATOR Work Phone: [facility] 10-02-2024 11:24-0400 Diastolic blood pressure 84 mm[Hg] Niraj Andino BOILER OPERATOR HELPER.FIRE HYDRANT OPERATOR Work Phone: [facility] 10-02-2024 11:24-0400 Heart rate 94 /min Niraj Andino BOILER OPERATOR HELPER.FIRE HYDRANT OPERATOR Work Phone: [facility] 10-02-2024 11:24-0400 SaO2% (BldA) [Mass fraction] 97 % Niraj Andino BOILER OPERATOR HELPER.FIRE HYDRANT OPERATOR Work Phone: [facility] 10-02-2024 11:24-0400 Systolic blood pressure 126 mm[Hg] Niraj Andino APRN.FIRE HYDRANT OPERATOR Work Phone: [facility] 09-29-2024 14:14-0400 Body height 185.4 cm Sangita Celestin APRN-FIRE HYDRANT OPERATOR Work Phone: [facility] 09-29-2024 14:14-0400 Body mass index (BMI) [Ratio] 21.11 kg/m2 Sangita Celestin BOILER OPERATOR HELPER-FIRE HYDRANT OPERATOR Work Phone: [facility] 09-29-2024 14:14-0400 Body weight 72.58 kg Sangita Celestin BOILER OPERATOR HELPER-FIRE HYDRANT OPERATOR Work Phone: [facility] 09-29-2024 14:14-0400 Heart rate 64 /min Sangita Celestin BOILER OPERATOR HELPER-FIRE HYDRANT OPERATOR Work Phone: [facility] 09-29-2024 14:14-0400 SaO2% (BldA) [Mass fraction] 98 % Sangita Celestin BOILER OPERATOR HELPER-FIRE HYDRANT OPERATOR Work Phone: [facility] 08-11-2024 15:54-0400 Body mass index (BMI) [Ratio] 22.78 kg/m2 Niraj Andino APRN.FIRE HYDRANT OPERATOR Work Phone: [facility] 08-11-2024 15:54-0400 Body weight 72 kg Niraj Andino APRN.FIRE HYDRANT OPERATOR Work Phone: [facility] 08-11-2024 15:54-0400 Diastolic blood pressure 82 mm[Hg] Niraj Andino APRN.FIRE HYDRANT OPERATOR Work Phone: [facility] 08-11-2024 15:54-0400 Heart rate 92 /min Niraj Andino APRN.FIRE HYDRANT OPERATOR Work Phone: [facility] 08-11-2024 15:54-0400 Systolic blood pressure 118 mm[Hg] Niraj Andino APRN.FIRE HYDRANT OPERATOR Work Phone: [facility] 07-14-2024 15:10-0500 Body mass index (BMI) [Ratio] 22.67 kg/m2 Niraj Andino BOILER OPERATOR HELPER.FIRE HYDRANT OPERATOR Work Phone: [facility] 07-14-2024 15:10-0500 Body weight 71.67 kg Niraj Andino APRN.FIRE HYDRANT OPERATOR Work Phone: [facility] 07-14-2024 15:10-0500 Diastolic blood pressure 80 mm[Hg] Niraj Andino APRN.FIRE HYDRANT OPERATOR Work Phone: [facility] 07-14-2024 15:10-0500 Heart rate 94 /min Niraj Andino BOILER OPERATOR HELPER.FIRE HYDRANT OPERATOR Work Phone: [facility] 07-14-2024 15:10-0500 Systolic blood pressure 116 mm[Hg] Niraj Andino BOILER OPERATOR HELPER.FIRE HYDRANT OPERATOR Work Phone: [facility] 07-07-2024 16:38-0500 Body height 185.42 cm Niraj Andino [employer]OL[employer]KER [employer]-C Work Phone: [facility] 07-07-2024 16:38-0500 Body mass index (BMI) [Ratio] 20.9 kg/m2 Niraj Andino [employer]C Work Phone: [facility] 07-07-2024 16:38-0500 Body temperature 99.9 [degF] Niraj Andino [employer]C Work Phone: [facility] 07-07-2024 16:38-0500 Body weight 71.84 kg Niraj Andino [employer]OLMAKER [employer]-C Work Phone: [facility] 07-07-2024 16:38-0500 Diastolic blood pressure 89 mm[Hg] Niraj Andino [employer]KER [employer]C Work Phone: [facility] 07-07-2024 16:38-0500 Heart rate 105 /min Niraj Andino TOOLMAKER [employer]-C Work Phone: [facility] 07-07-2024 16:38-0500 Respiratory rate 20 /min Niarj Andino [employer]OLMAKER [employer]-C Work Phone: [facility] 07-07-2024 16:38-0500 SaO2% (BldA) [Mass fraction] 97 % Niraj Andino [employer]OLMAKER [employer]-C Work Phone: [facility] 07-07-2024 16:38-0500 Systolic blood pressure 127 mm[Hg] Niraj Andino TOOLMAKER [employer]-C Work Phone: [facility] 07-01-2024 11:52-0500 Body mass index (BMI) [Ratio] 22.38 kg/m2 Donna Aponte BOILER OPERATOR HELPER.FIRE HYDRANT OPERATOR Work Phone: [facility] 07-01-2024 11:52-0500 Body temperature 98.71 [degF] Donna Podlogar BOILER OPERATOR HELPER.FIRE HYDRANT OPERATOR Work Phone: [facility] 07-01-2024 11:52-0500 Body weight 70.76 kg Donna Podlogar BOILER OPERATOR HELPER.FIRE HYDRANT OPERATOR Work Phone: [facility] 07-01-2024 11:52-0500 Diastolic blood pressure 94 mm[Hg] Donna Podlogar BOILER OPERATOR HELPER.FIRE HYDRANT OPERATOR Work Phone: [facility] 07-01-2024 11:52-0500 Heart rate 89 /min Donna Podlogar BOILER OPERATOR HELPER.FIRE HYDRANT OPERATOR Work Phone: [facility] 07-01-2024 11:52-0500 Respiratory rate 18 /min Donna Podlogar BOILER OPERATOR HELPER.FIRE HYDRANT OPERATOR Work Phone: [facility] 07-01-2024 11:52-0500 SaO2% (BldA) [Mass fraction] 94 % Donna Podlogar BOILER OPERATOR HELPER.FIRE HYDRANT OPERATOR Work Phone: [facility] 07-01-2024 11:52-0500 Systolic blood pressure 122 mm[Hg] Donna Podlogar BOILER OPERATOR HELPER.FIRE HYDRANT OPERATOR Work Phone: [facility] 06-22-2024 16:19-0500 Body mass index (BMI) [Ratio] 22.96 kg/m2 Niraj Andino BOILER OPERATOR HELPER.FIRE HYDRANT OPERATOR Work Phone: [facility] 06-22-2024 16:19-0500 Body weight 72.58 kg Niraj Andino BOILER OPERATOR HELPER.FIRE HYDRANT OPERATOR Work Phone: [facility] 06-22-2024 16:19-0500 Diastolic blood pressure 91 mm[Hg] Niraj Andino BOILER OPERATOR HELPER.FIRE HYDRANT OPERATOR Work Phone: [facility] 06-22-2024 16:19-0500 Heart rate 84 /min Niraj Andino BOILER OPERATOR HELPER.FIRE HYDRANT OPERATOR Work Phone: [facility] 06-22-2024 16:19-0500 SaO2% (BldA) [Mass fraction] 98 % Niraj Andino APRN.FIRE HYDRANT OPERATOR Work Phone: [facility] 06-22-2024 16:19-0500 Systolic blood pressure 133 mm[Hg] Niraj Andino APRN.FIRE HYDRANT OPERATOR Work Phone: [facility] 04-21-2024 11:05-0500 Body mass index (BMI) [Ratio] 23.82 kg/m2 Niraj Andino APRN.FIRE HYDRANT OPERATOR Work Phone: [facility] 04-21-2024 11:05-0500 Body weight 75.3 kg Niraj Andino APRN.FIRE HYDRANT OPERATOR Work Phone: [facility] 04-21-2024 11:05-0500 Diastolic blood pressure 89 mm[Hg] Niraj Andino APRN.FIRE HYDRANT OPERATOR Work Phone: [facility] 04-21-2024 11:05-0500 Heart rate 75 /min Niraj Andino APRN.FIRE HYDRANT OPERATOR Work Phone: [facility] 04-21-2024 11:05-0500 Respiratory rate 14 /min Niraj Andino APRN.FIRE HYDRANT OPERATOR Work Phone: [facility] 04-21-2024 11:05-0500 Systolic blood pressure 143 mm[Hg] Niraj Andino APRN.FIRE HYDRANT OPERATOR Work Phone: [facility] 04-02-2024 14:44-0500 Body mass index (BMI) [Ratio] 23.24 kg/m2 Niraj Andino APRN.FIRE HYDRANT OPERATOR Work Phone: [facility] 04-02-2024 14:44-0500 Body weight 73.48 kg Niraj Andino APRN.FIRE HYDRANT OPERATOR Work Phone: [facility] 04-02-2024 14:44-0500 Diastolic blood pressure 87 mm[Hg] Niraj Andino APRN.FIRE HYDRANT OPERATOR Work Phone: [facility] 04-02-2024 14:44-0500 Heart rate 99 /min Niraj Andino APRN.FIRE HYDRANT OPERATOR Work Phone: [facility] 04-02-2024 14:44-0500 SaO2% (BldA) [Mass fraction] 97 % Niraj Andino APRN.FIRE HYDRANT OPERATOR Work Phone: [facility] 04-02-2024 14:44-0500 Systolic blood pressure 137 mm[Hg] Niraj Andino APRN.FIRE HYDRANT OPERATOR Work Phone: [facility] 03-13-2024 14:21-0400 Body mass index (BMI) [Ratio] 23.39 kg/m2 Niraj Andino APRN.FIRE HYDRANT OPERATOR Work Phone: [facility] 03-13-2024 14:21-0400 Body temperature 98.49 [degF] Niraj Andino APRN.FIRE HYDRANT OPERATOR Work Phone: [facility] 03-13-2024 14:21-0400 Body weight 73.94 kg Niraj Andino APRN.FIRE HYDRANT OPERATOR Work Phone: [facility] 03-13-2024 14:21-0400 Diastolic blood pressure 77 mm[Hg] Niraj Andino APRN.FIRE HYDRANT OPERATOR Work Phone: [facility] 03-13-2024 14:21-0400 Heart rate 88 /min Niraj Andino APRN.FIRE HYDRANT OPERATOR Work Phone: [facility] 03-13-2024 14:21-0400 Respiratory rate 14 /min Niraj Andino APRN.FIRE HYDRANT OPERATOR Work Phone: [facility] 03-13-2024 14:21-0400 Systolic blood pressure 122 mm[Hg] Niraj Andino APRN.FIRE HYDRANT OPERATOR Work Phone: [facility] 02-20-2024 15:18-0400 Body mass index (BMI) [Ratio] 22.96 kg/m2 Niraj Andino APRN.FIRE HYDRANT OPERATOR Work Phone: [facility] 02-20-2024 15:18-0400 Body temperature 98.49 [degF] Niraj Andino APRN.FIRE HYDRANT OPERATOR Work Phone: [facility] 02-20-2024 15:18-0400 Body weight 72.58 kg Niraj Andino APRN.FIRE HYDRANT OPERATOR Work Phone: [facility] 02-20-2024 15:18-0400 Diastolic blood pressure 93 mm[Hg] Niraj Andino APRN.FIRE HYDRANT OPERATOR Work Phone: [facility] 02-20-2024 15:18-0400 Heart rate 90 /min Niraj Andino BOILER OPERATOR HELPER.FIRE HYDRANT OPERATOR Work Phone: [facility] 02-20-2024 15:18-0400 Systolic blood pressure 143 mm[Hg] Niraj Andino BOILER OPERATOR HELPER.FIRE HYDRANT OPERATOR Work Phone: [facility] 12-19-2023 15:07-0400 Body mass index (BMI) [Ratio] 21.81 kg/m2 Niraj Andino BOILER OPERATOR HELPER.FIRE HYDRANT OPERATOR Work Phone: [facility] 12-19-2023 15:07-0400 Body weight 68.95 kg Niraj Andino APRN.FIRE HYDRANT OPERATOR Work Phone: [facility] 12-19-2023 15:07-0400 Diastolic blood pressure 79 mm[Hg] Niraj Andino BOILER OPERATOR HELPER.FIRE HYDRANT OPERATOR Work Phone: [facility] 12-19-2023 15:07-0400 Heart rate 72 /min Niraj Andino APRN.FIRE HYDRANT OPERATOR Work Phone: [facility] 12-19-2023 15:07-0400 Respiratory rate 14 /min Niraj Andino BOILER OPERATOR HELPER.FIRE HYDRANT OPERATOR Work Phone: [facility] 12-19-2023 15:07-0400 Systolic blood pressure 119 mm[Hg] Niraj Andino BOILER OPERATOR HELPER.FIRE HYDRANT OPERATOR Work Phone: [facility] 11-28-2023 16:11-0400 Body mass index (BMI) [Ratio] 21.81 kg/m2 Niraj Andino APRN.FIRE HYDRANT OPERATOR Work Phone: [facility] 11-28-2023 16:11-0400 Body weight 68.95 kg Niraj Andino APRN.FIRE HYDRANT OPERATOR Work Phone: [facility] 11-28-2023 16:11-0400 Diastolic blood pressure 88 mm[Hg] Niraj Andino APRN.FIRE HYDRANT OPERATOR Work Phone: [facility] 11-28-2023 16:11-0400 Heart rate 84 /min Niraj Andino BOILER OPERATOR HELPER.FIRE HYDRANT OPERATOR Work Phone: [facility] 11-28-2023 16:11-0400 Respiratory rate 14 /min Niraj Andino BOILER OPERATOR HELPER.FIRE HYDRANT OPERATOR Work Phone: [facility] 11-28-2023 16:11-0400 Systolic blood pressure 132 mm[Hg] Niraj Andino BOILER OPERATOR HELPER.FIRE HYDRANT OPERATOR Work Phone: [facility] 09-30-2023 01:09-0400 Body temperature 98 [degF] [facility] 09-30-2023 01:09-0400 Diastolic blood pressure 79 mm[Hg] [facility] 09-30-2023 01:09-0400 Heart rate 69 /min [facility] 09-30-2023 01:09-0400 Respiratory rate 17 /min [facility] 09-30-2023 01:09-0400 SaO2% (BldA) [Mass fraction] 99 % [facility] 09-30-2023 01:09-0400 Systolic blood pressure 117 mm[Hg] [facility] 09-29-2023 21:08-0400 Body height 185.42 cm [facility] 09-29-2023 21:08-0400 Body mass index (BMI) [Ratio] 18.6 kg/m2 [facility] 09-29-2023 21:08-0400 Body weight 64.27 kg [facility] 09-02-2023 15:06-0400 Body temperature 97.81 [degF] Georgia Milton BOILER OPERATOR HELPER.ROLLER SKATE REPAIRER Work Phone: [facility] 09-02-2023 15:06-0400 Body weight 63.5 kg Georgia Milton BOILER OPERATOR HELPER.ROLLER SKATE REPAIRER Work Phone: [facility] 09-02-2023 15:06-0400 Diastolic blood pressure 78 mm[Hg] Georgia Milton BOILER OPERATOR HELPER.ROLLER SKATE REPAIRER Work Phone: [facility] 09-02-2023 15:06-0400 Heart rate 81 /min Georgia Suppan BOILER OPERATOR HELPER.ROLLER SKATE REPAIRER Work Phone: [facility] 09-02-2023 15:06-0400 Respiratory rate 16 /min Georgia Suppan BOILER OPERATOR HELPER.ROLLER SKATE REPAIRER Work Phone: [facility] 09-02-2023 15:06-0400 SaO2% (BldA) [Mass fraction] 99 % Georgia Suppan BOILER OPERATOR HELPER.ROLLER SKATE REPAIRER Work Phone: [facility] 09-02-2023 15:06-0400 Systolic blood pressure 120 mm[Hg] Georgia Suppan BOILER OPERATOR HELPER.ROLLER SKATE REPAIRER Work Phone: [facility] 07-25-2023 15:25-0500 Body weight 61.24 kg Nirajdouglas Andino BOILER OPERATOR HELPER.FIRE HYDRANT OPERATOR Work Phone: [facility] 07-25-2023 15:25-0500 Diastolic blood pressure 80 mm[Hg] Niraj Carlioble BOILER OPERATOR HELPER.FIRE HYDRANT OPERATOR Work Phone: [facility] 07-25-2023 15:25-0500 Heart rate 84 /min Niraj Knoble BOILER OPERATOR HELPER.FIRE HYDRANT OPERATOR Work Phone: [facility] 07-25-2023 15:25-0500 Respiratory rate 14 /min Niraj Carlioble BOILER OPERATOR HELPER.FIRE HYDRANT OPERATOR Work Phone: [facility] 07-25-2023 15:25-0500 Systolic blood pressure 120 mm[Hg] Niraj Carlioble BOILER OPERATOR HELPER.FIRE HYDRANT OPERATOR Work Phone: [facility] 04-19-2023 08:49-0500 Body weight 59.42 kg Niarj Carlioble BOILER OPERATOR HELPER.FIRE HYDRANT OPERATOR Work Phone: [facility] 04-19-2023 08:49-0500 Diastolic blood pressure 66 mm[Hg] Niraj Knoble BOILER OPERATOR HELPER.FIRE HYDRANT OPERATOR Work Phone: [facility] 04-19-2023 08:49-0500 Heart rate 80 /min Niraj Knoble BOILER OPERATOR HELPER.FIRE HYDRANT OPERATOR Work Phone: [facility] 04-19-2023 08:49-0500 Respiratory rate 14 /min Niraj Andino APRN.FIRE HYDRANT OPERATOR Work Phone: [facility] 04-19-2023 08:49-0500 Systolic blood pressure 112 mm[Hg] Niraj Andino APRN.FIRE HYDRANT OPERATOR Work Phone: [facility] 02-28-2023 17:16-0400 Body temperature 98.1 [degF] Niraj Andino APRN.FIRE HYDRANT OPERATOR Work Phone: [facility] 02-28-2023 17:16-0400 Body weight 57.15 kg Niraj Andino APRN.FIRE HYDRANT OPERATOR Work Phone: [facility] 02-28-2023 17:16-0400 Diastolic blood pressure 70 mm[Hg] iNraj Andino APRN.FIRE HYDRANT OPERATOR Work Phone: [facility] 02-28-2023 17:16-0400 Heart rate 90 /min Niraj Andino APRN.FIRE HYDRANT OPERATOR Work Phone: [facility] 02-28-2023 17:16-0400 Respiratory rate 16 /min Niraj Andino APRN.FIRE HYDRANT OPERATOR Work Phone: [facility] 02-28-2023 17:16-0400 Systolic blood pressure 120 mm[Hg] Niraj Andino APRN.FIRE HYDRANT OPERATOR Work Phone: [facility] 01-11-2023 16:02-0400 Diastolic blood pressure 74 mm[Hg] [facility] 01-11-2023 16:02-0400 Heart rate 72 /min [facility] 01-11-2023 16:02-0400 Respiratory rate 18 /min [facility] 01-11-2023 16:02-0400 SaO2% (BldA) [Mass fraction] 97 % [facility] 01-11-2023 16:02-0400 Systolic blood pressure 118 mm[Hg] [facility] 01-11-2023 13:52-0400 Body temperature 99.4 [degF] [facility] 01-11-2023 13:11-0400 Body height 185.42 cm [facility] 01-11-2023 13:11-0400 Body mass index (BMI) [Ratio] 15.7 kg/m2 [facility] 01-11-2023 13:11-0400 Body weight 53.97 kg [facility] 12-25-2022 15:20-0400 Body weight 54.88 kg Niraj Andino APRN.FIRE HYDRANT OPERATOR Work Phone: [facility] 12-25-2022 15:20-0400 Diastolic blood pressure 70 mm[Hg] Niraj Andino BOILER OPERATOR HELPER.FIRE HYDRANT OPERATOR Work Phone: [facility] 12-25-2022 15:20-0400 Heart rate 92 /min Niraj Andino BOILER OPERATOR HELPER.FIRE HYDRANT OPERATOR Work Phone: [facility] 12-25-2022 15:20-0400 Respiratory rate 16 /min Niraj Andino BOILER OPERATOR HELPER.FIRE HYDRANT OPERATOR Work Phone: [facility] 12-25-2022 15:20-0400 Systolic blood pressure 120 mm[Hg] Niraj Andino BOILER OPERATOR HELPER.FIRE HYDRANT OPERATOR Work Phone: [facility] 12-23-2022 16:00-0400 Diastolic blood pressure 85 mm[Hg] [facility] 12-23-2022 16:00-0400 Heart rate 65 /min [facility] 12-23-2022 16:00-0400 Respiratory rate 16 /min [facility] 12-23-2022 16:00-0400 SaO2% (BldA) [Mass fraction] 98 % [facility] 12-23-2022 16:00-0400 Systolic blood pressure 123 mm[Hg] [facility] 12-23-2022 13:21-0400 Body height 185.42 cm [facility] 12-23-2022 13:21-0400 Body mass index (BMI) [Ratio] 16.2 kg/m2 [facility] 12-23-2022 13:21-0400 Body temperature 97.1 [degF] [facility] 12-23-2022 13:21-0400 Body weight 55.83 kg [facility] 12-06-2022 14:41-0400 Respiratory rate 16 /min [facility] 12-06-2022 13:09-0400 Body height 185.42 cm [facility] 12-06-2022 13:09-0400 Body mass index (BMI) [Ratio] 15.5 kg/m2 [facility] 12-06-2022 13:09-0400 Body temperature 97.4 [degF] [facility] 12-06-2022 13:090400 Body weight 53.2 kg [facility] 12-06-2022 13:09-0400 Diastolic blood pressure 94 mm[Hg] [facility] 12-06-2022 13:09-0400 Heart rate 95 /min [facility] 12-06-2022 13:09-0400 SaO2% (BldA) [Mass fraction] 98 % [facility] 12-06-2022 13:09-0400 Systolic blood pressure 130 mm[Hg] [facility] 12-06-2022 11:12-0400 Body weight 52.62 kg Niraj Andino APRN.FIRE HYDRANT OPERATOR Work Phone: [facility] 12-06-2022 11:12-0400 Diastolic blood pressure 78 mm[Hg] Niraj Andino BOILER OPERATOR HELPER.FIRE HYDRANT OPERATOR Work Phone: [facility] 12-06-2022 11:12-0400 Heart rate 90 /min Niraj Andino BOILER OPERATOR HELPER.FIRE HYDRANT OPERATOR Work Phone: [facility] 12-06-2022 11:12-0400 Respiratory rate 16 /min Niraj Andino APRN.FIRE HYDRANT OPERATOR Work Phone: [facility] 12-06-2022 11:12-0400 Systolic blood pressure 112 mm[Hg] Niraj Andino BOILER OPERATOR HELPER.FIRE HYDRANT OPERATOR Work Phone: [facility] 11-01-2022 16:16-0400 Body height 177.8 cm Niraj Andino APRN.FIRE HYDRANT OPERATOR Work Phone: [facility] 11-01-2022 16:16-0400 Body weight 49.9 kg Niraj Andino APRN.FIRE HYDRANT OPERATOR Work Phone: [facility] 11-01-2022 16:16-0400 Diastolic blood pressure 62 mm[Hg] Niraj Andino APRN.FIRE HYDRANT OPERATOR Work Phone: [facility] 11-01-2022 16:16-0400 Heart rate 72 /min Niraj Andino APRN.FIRE HYDRANT OPERATOR Work Phone: [facility] 11-01-2022 16:16-0400 Respiratory rate 18 /min Niraj Andino BOILER OPERATOR HELPER.FIRE HYDRANT OPERATOR Work Phone: [facility] 11-01-2022 16:16-0400 SaO2% (BldA) [Mass fraction] 98 % Niraj Andino BOILER OPERATOR HELPER.FIRE HYDRANT OPERATOR Work Phone: [facility] 11-01-2022 16:16-0400 Systolic blood pressure 120 mm[Hg] Niraj Andino BOILER OPERATOR HELPER.FIRE HYDRANT OPERATOR Work Phone: [facility] 10-22-2022 12:01-0400 Body mass index (BMI) [Ratio] 15.68 kg/m2 Michelle Neely MD Work Phone: [facility] 10-22-2022 12:01-0400 Body weight 50.98 kg Michelle Neely MD Work Phone: [facility] 10-22-2022 12:01-0400 Diastolic blood pressure 76 mm[Hg] Michelle Neely MD Work Phone: [facility] 10-22-2022 12:01-0400 Heart rate 64 /min Michelle Neely MD Work Phone: [facility] 10-22-2022 12:01-0400 SaO2% (BldA) [Mass fraction] 98 % Michelle Neely MD Work Phone: [facility] 10-22-2022 12:01-0400 Systolic blood pressure 116 mm[Hg] Michelle Neely MD Work Phone: [phone] [place] [address] 07-23-2022 09:07-0500 Body mass index (BMI) [Ratio] 16.88 kg/m2 Michelle Neely MD Work Phone: [phone] [place] [address] 07-23-2022 09:07-0500 Body weight 54.88 kg Michelle Neely MD Work Phone: [facility] 07-23-2022 09:07-0500 Diastolic blood pressure 72 mm[Hg] Michelle Neely MD Work Phone: [facility] 07-23-2022 09:07-0500 Heart rate 72 /min Michelle Neely MD Work Phone: [facility] 07-23-2022 09:07-0500 SaO2% (BldA) [Mass fraction] 99 % Michelle Neely MD Work Phone: [facility] 07-23-2022 09:07-0500 Systolic blood pressure 112 mm[Hg] Michelle Neely MD Work Phone: [facility] 04-24-2022 08:23-0500 Body mass index (BMI) [...] 12:32-0500 Pulse (Heart Rate) 75 /min Michelle Keenan MP-Keenan Work Phone: 04-03-2019 12:32-0500 Pulse Oximetry 98 % Michelle SANTANAKeenan Work Phone: Encounters Encounter Date Encounter Type Care Provider Facility Start: 02-16-2025 End: 02-16-2025 ambulatory NIRAJ ANDINO Facility:[facility] Start: 02-11-2025 End: 02-11-2025 Patient encounter procedure Sariah CRUZ -[facility] Work Phone: Start: 02-11-2025 End: 02-11-2025 ambulatory Niraj Andino TOOLMAKER GRADE [employer]-C Work Phone: [facility] Start: 02-11-2025 End: 02-11-2025 ambulatory Niraj Andino Facility:[facility] Start: 01-28-2025 ambulatory Niraj Andino Facilit y:[facility] Start: 01-22-2025 End: 01-22-2025 Patient encounter procedure Janett Perdomo OD Work Phone: Ophthalmology Comment on above: Alternating esotropi a (Primary Dx); Irregular astigmatism of both eyes; Corneal thinning, bilateral; Autism ([facility]) Start: 01-22-2025 End: 01-22-2025 ambulatory NIRAJ ANDINO Facility:[facility] Start: 01-15-2025 End: 01-15-2025 Follow-up encounter Lorraine Dong PA-C Work Phone: [facility] [place] Comment on above: Results Start: 01-14-2025 End: 01-15-2025 Telephone encounter Niraj Andino APRN.CNP Work Phone: [facility] [place] Comment on above: Results Start: 01-12-2025 End: 01-12-2025 ambulatory NIRAJ ANDINO Facility:[facility] Start: 01-12-2025 End: 01-12-2025 Office outpatient visit 15 minutes Lorraine Dong PA-C Work Phone: [facility] [place] Comment on above: Lower abdominal pain (Primary Dx); Autism spectrum disorder without accompanying intellectual impairment, requiring support (level 1) ([facility]) Start: 12-18-2024 End: 12-19-2024 [facility] Start: 12-18-2024 [facility] Start: 12-18-2024 End: 12-18-2024 ambulatory Jacki Szymanski RN NURSE HISTOTECHNOLOGIST Comment on above: Chest Pain Start: 12-09-2024 End: 12-09-2024 Emergency department patient visit Niraj Andino TOOLMAKER GRADE [employer]-C Work Phone: -Emergency Department Work Phone: Start: 11-16-2024 End: 11-16-2024 Patient encounter procedure Alize Villa BOILER OPERATOR HELPER.FIRE HYDRANT OPERATOR Work Phone: [facility] Comment on above: Otalgia of left ear (Primary Dx) Start: 11-16-2024 End: 11-16-2024 ambulatory NIRAJ ANDINO Facility:[facility] Start: 11-03-2024 End: 11-03-2024 ambulatory Niraj Andino TOOLMAKER [employer]ADE THREE-C Work Phone: [facility] Work Phone: Start: 11-03-2024 End: 11-03-2024 Patient encounter procedure Abdias CRUZ -Laboratory Work Phone: Start: 11-03-2024 End: 11-03-2024 ambulatory Abdias Orozco Facility:[facility] Start: 10-28-2024 End: 10-28-2024 Patient encounter procedure Sariah CRUZ -[facility] Work Phone: Start: 10-28-2024 End: 10-28-2024 ambulatory Niraj Andino TOOLMAKER [employer]-C Work Phone: [facility] Work Phone: Start: 10-02-2024 End: 10-02-2024 Patient encounter procedure Niraj Andino APRN.FIRE HYDRANT OPERATOR Work Phone: [facility] Comment on above: Hearing aid consulta tion (Primary Dx); Seasonal allergies Start: 10-02-2024 End: 10-02-2024 ambulatory NIRAJ ANDINO Facility:[facility] Start: 10-01-2024 End: 10-01-2024 Follow-up encounter Niraj Andino APRN.CNP Work Phone: [facility] [place] Start: 09-30-2024 ambulatory NIRAJ ANDINO Facilit y:[facility] Start: 09-30-2024 End: 09-30-2024 Subsequent hospital visit by physician [facility] Work Phone: Radiology Comment on above: Elevated alkaline ph osphatase level [R74.8] Start: 09-29-2024 End: 09-29-2024 Office outpatient new 45 minutes Sangita Celestin APRN-FIRE HYDRANT OPERATOR Work Phone: [facility] [place] Comment on above: 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); Sensorineural hearing loss (SNHL) of left ear, unspecified hearing status on contralateral side; Developmental delay Start: 09-29-2024 End: 09-29-2024 Patient encounter procedure Riley Clark AuD Work Phone: [facility] [place] Comment on above: Hearing loss of left ear, unspecified hearing loss type (Primary Dx) Start: 09-29-2024 [facility] Start: 09-18-2024 End: 09-18-2024 Telephone encounter Niraj Andino APRN.FIRE HYDRANT OPERATOR Work Phone: [facility] [place] Comment on above: Medication Question; Appointment Start: 09-17-2024 End: 09-17-2024 Follow-up encounter Niraj Andino APRN.FIRE HYDRANT OPERATOR Work Phone: [facility] [place] Start: 09-14-2024 End: 09-14-2024 ambulatory NIRAJ ANDINO Facility:[facility] Start: 08-27-2024 End: 08-28-2024 Telephone encounter Niraj Andino APRN.FIRE HYDRANT OPERATOR Work Phone: [facility] [place] Comment on above: Orders Results Start: 08-27-2024 End: 08-27-2024 Patient encounter procedure Jory Anderson AuD Work Phone: [facility] [place] Comment on above: Conductive hearing l oss, unspecified laterality (Primary Dx) Start: 08-27-2024 ambulatory JORY ANDERSON Facilit y:[facility] Start: 08-26-2024 End: 08-26-2024 Patient encounter procedure Sariah CRUZ -[facility] Work Phone: Start: 08-26-2024 End: 08-26-2024 ambulatory Niraj Andino [facility] Start: 08-25-2024 End: 08-25-2024 ambulatory NIRAJ ANDINO Facility:[facility] Start: 08-14-2024 End: 08-21-2024 Telephone encounter Niraj Andino APRN.CNP Work Phone: [facility] [place] Comment on above: Results; prior autho rization (Liquid Atorvastatin) Start: 08-11-2024 End: 08-11-2024 ambulatory NIRAJ ANDINO Facility:[facility] Start: 08-11-2024 Encounter for genera l adult medical examination without abnormal findings NIRAJ ANDINO [facility] Start: 08-11-2024 End: 08-11-2024 Patient encounter procedure Niraj Andino APRN.CNP Work Phone: [facility] [place] Comment on above: Wellness examination (Primary Dx); Vitamin D deficiency; Medication management; Encounter for lipid screening for cardiovascular disease; Schizophrenia, unspecified type (HCC); GERD without esophagitis; Non-verbal learning disorder; Encounter for immunization Start: 08-11-2024 End: 08-11-2024 Patient encounter status Niraj Andino APRN.CNP Work Phone: [facility] Start: 07-14-2024 End: 07-14-2024 Patient encounter procedure Niraj Andino APRN.CNP Work Phone: [facility] [place] Comment on above: Post-viral cough syn drome (Primary Dx) Start: 07-14-2024 End: 07-14-2024 ambulatory NIRAJ ANDINO Facility:[facility] Start: 07-07-2024 End: 07-07-2024 Emergency department patient visit ED PHYSICIAN PROVIDER -Emergency Department Work Phone: Start: 07-07-2024 End: 07-07-2024 Telephone encounter Niraj Andino APRN.FIRE HYDRANT OPERATOR Work Phone: [facility] [place] Comment on above: Patient Update Start: 07-01-2024 End: 07-01-2024 Follow-up encounter Bethany Millan [facility] Start: 07-01-2024 End: 07-01-2024 Subsequent hospital visit by physician [facility] [place] Work Phone: Radiology Comment on above: Acute cough [R05.1] Start: 07-01-2024 End: 07-01-2024 ambulatory DONNA PODLOGAR Facility:[facility] Start: 07-01-2024 End: 07-01-2024 Patient encounter procedure Donna Schererlogheidi FRIEDMAN.FIRE HYDRANT OPERATOR Work Phone: [facility] [place] Comment on above: Acute cough (Primary Dx) Start: 06-30-2024 End: 06-30-2024 Telephone encounter Niraj Andino APRN.FIRE HYDRANT OPERATOR Work Phone: [facility] [place] Comment on above: Requesting Rx for a shower chair Start: 06-23-2024 End: 06-23-2024 Telephone encounter Niraj Andino APRN.FIRE HYDRANT OPERATOR Work Phone: [facility] [place] Comment on above: Results Start: 06-22-2024 End: 06-22-2024 Patient encounter procedure Niraj Andino APRN.FIRE HYDRANT OPERATOR Work Phone: [facility] [place] Comment on above: URI, acute (Primary Dx) Start: 06-22-2024 End: 06-22-2024 ambulatory SELF Facility:[facility] Start: 06-18-2024 End: 06-18-2024 ambulatory Niraj Andino Facility:[facility] Start: 04-21-2024 End: 05-18-2024 Telephone encounter Niraj Andino APRN.FIRE HYDRANT OPERATOR Work Phone: [facility] [place] Start: 04-21-2024 End: 04-21-2024 ambulatory NIRAJ ANDINO Facility:[facility] Start: 04-21-2024 End: 04-21-2024 Patient encounter procedure Niraj Andino APRN.FIRE HYDRANT OPERATOR Work Phone: [facility] [place] Comment on above: Bacterial conjunctiv itis (Primary Dx) Start: 04-14-2024 End: 04-14-2024 ambulatory Niraj Andino [facility] Start: 04-03-2024 End: 04-03-2024 Telephone encounter Niraj Andino APRN.FIRE HYDRANT OPERATOR Work Phone: [facility] [place] Comment on above: Results Start: 04-02-2024 End: 04-02-2024 Subsequent hospital visit by physician [facility] [place] Work Phone: Radiology Comment on above: Acute cough [R05.1] Start: 04-02-2024 End: 04-02-2024 ambulatory NIRAJ ANDINO Facility:[facility] Start: 04-02-2024 End: 04-02-2024 Patient encounter procedure Niraj Andino APRN.FIRE HYDRANT OPERATOR Work Phone: [facility] [place] Comment on above: Acute cough (Primary Dx); Medication management; Vitamin D deficiency Start: 04-02-2024 End: 04-02-2024 Telephone encounter Niraj Andino APRN.FIRE HYDRANT OPERATOR Work Phone: [facility] [place] Comment on above: Results Start: 03-24-2024 End: 03-24-2024 ambulatory [facility] [place] Start: 03-24-2024 End: 03-24-2024 Patient encounter procedure Chel[facility] Smart [facility] [place] Comment on above: Population Health Na vigation Outreach ([facility] [place] [facility] ) Start: 03-17-2024 End: 03-17-2024 Telephone encounter Niraj Andino APRN.FIRE HYDRANT OPERATOR Work Phone: [facility] [place] Comment on above: Patient Update Start: 03-16-2024 End: 03-17-2024 Telephone encounter Niraj Andino APRN.CNP Work Phone: [facility] [place] Comment on above: Orders Start: 03-13-2024 End: 03-13-2024 Patient encounter procedure Niraj Andino APRN.FIRE HYDRANT OPERATOR Work Phone: [facility] Comment on above: Acute otitis externa of left ear, unspecified type (Primary Dx); Impacted cerumen of left ear; Impaired development of adult Start: 03-13-2024 End: 03-13-2024 ambulatory NIRAJ ANDINO Facility:[facility] Start: 03-13-2024 End: 03-13-2024 Telephone encounter Niraj Andino APRN.FIRE HYDRANT OPERATOR Work Phone: [facility] [place] Comment on above: Appointment; Patient Update Start: 03-03-2024 End: 03-03-2024 ambulatory NIRAJ ANDINO Facility:[facility] Start: 03-03-2024 End: 03-03-2024 Nursing evaluation of patient and report Mi Nurse Work Phone: [facility] Comment on above: Encounter for immuni zation Start: 02-27-2024 End: 02-28-2024 Telephone encounter Niraj Andino APRN.FIRE HYDRANT OPERATOR Work Phone: [facility] Comment on above: Orders Start: 02-24-2024 End: 02-26-2024 Telephone encounter Niraj Andino APRN.FIRE HYDRANT OPERATOR Work Phone: [facility] Comment on above: Results Start: 02-21-2024 End: 02-21-2024 Telephone encounter Niraj Andino APRN.FIRE HYDRANT OPERATOR Work Phone: [facility] Comment on above: Results Start: 02-20-2024 End: 02-20-2024 Patient encounter procedure Niraj Andino APRN.FIRE HYDRANT OPERATOR Work Phone: [facility] [place] Comment on above: Cough in adult (Prim sha Dx); Sore throat; Decreased appetite; GERD without esophagitis; Measles, mumps, rubella (MMR) vaccination status unknown; Hepatitis vaccination status unknown; Unknown varicella vaccination status; Canaaztfsw-khcyagron-xtsulov (DPT) vaccination status unknown Start: 12-24-2023 Telephone encounter Niraj quiñones APRN.FIRE HYDRANT OPERATOR Work Phone: [facility] Comment on above: Results Start: 12-19-2023 End: 12-19-2023 Subsequent hospital visit by physician [facility] [place] Work Phone: Radiology Comment on above: Bony prominence [M89 .8X9] Start: 12-19-2023 End: 12-19-2023 Patient encounter procedure Niraj Andino APRN.FIRE HYDRANT OPERATOR Work Phone: [facility] Comment on above: Agitation (Primary D x); Anal inflammation; Schizophrenia, unspecified type (HCC); Non-verbal learning disorder; Bony prominence Start: 12-13-2023 ambulatory Niraj patel APRN.FIRE HYDRANT OPERATOR Work Phone: [facility] [place] Start: 12-13-2023 Telephone encounter Niraj quiñones APRN.FIRE HYDRANT OPERATOR Work Phone: [facility] Comment on above: Possible chest or ab d pain Erroneous encounter- disregard Start: 11-29-2023 Telephone encounter Niraj quiñones APRN.FIRE HYDRANT OPERATOR Work Phone: [facility] Comment on above: Medication Problem Start: 11-28-2023 End: 11-28-2023 Patient encounter procedure Niraj Andino APRN.FIRE HYDRANT OPERATOR Work Phone: [facility] Comment on above: Acute otitis media, right (Primary Dx) Start: 11-28-2023 Refill Niraj patel APRN.FIRE HYDRANT OPERATOR Work Phone: [facility] Comment on above: Med Change Request Start: 11-20-2023 Telephone encounter Niraj quiñones APRN.FIRE HYDRANT OPERATOR Work Phone: [facility] Comment on above: Question (checking t o see if something is needed for precaution ) Start: 09-29-2023 End: 09-30-2023 Emergency department patient visit [facility]Emergency Department Work Phone: Start: 09-26-2023 ambulatory Niraj patel APRN.FIRE HYDRANT OPERATOR Work Phone: [facility] Comment on above: Limping and dragging left let Start: 09-24-2023 Registered Recurring Wo [facility]-Speech Therapy Work Phone: Start: 09-16-2023 Telephone encounter Niraj quiñones APRN.FIRE HYDRANT OPERATOR Work Phone: [facility] [place] Comment on above: Patient Question (re garding Autism testing results) Start: 09-02-2023 End: 09-02-2023 Office outpatient visit 15 minutes Georgia Milton BOILER OPERATOR HELPER.ROLLER SKATE REPAIRER Work Phone: [facility] [place] Comment on above: Cellulitis of skin ( Primary Dx); Schizophreniform disorder (HCC); Non-verbal learning disorder; Dysuria Start: 08-05-2023 Telephone encounter Niraj quiñones APRN.FIRE HYDRANT OPERATOR Work Phone: [facility] [place] Comment on above: Medication Problem Start: 07-30-2023 Telephone encounter Niraj quiñones APRN.FIRE HYDRANT OPERATOR Work Phone: [facility] [place] Comment on above: Medication Problem Start: 07-26-2023 Telephone encounter Niraj quiñones APRN.FIRE HYDRANT OPERATOR Work Phone: [facility] [place] Comment on above: Results Start: 07-25-2023 End: 07-25-2023 Patient encounter procedure Niraj Andino BOILER OPERATOR HELPER.FIRE HYDRANT OPERATOR Work Phone: [facility] [place] Comment on above: Non-verbal learning disorder (Primary Dx); Moderate protein-calorie malnutrition (HCC); Schizophrenia, unspecified type (HCC); GERD without esophagitis; Paleness; Family history of thyroid disease; Screening for diabetes mellitus; Encounter for lipid screening for cardiovascular disease Start: 06-27-2023 Telephone encounter Niraj quiñones APRN.FIRE HYDRANT OPERATOR Work Phone: [facility] [place] Comment on above: Results Start: 06-25-2023 Telephone encounter Niraj quiñones BOILER OPERATOR HELPER.FIRE HYDRANT OPERATOR Work Phone: [facility] [place] Comment on above: Results Start: 06-25-2023 End: 06-25-2023 Subsequent hospital visit by physician [facility] [place] Work Phone: Radiology Comment on above: Decreased appetite [ R63.0] Start: 05-06-2023 Telephone encounter Niraj quiñones APRN.FIRE HYDRANT OPERATOR Work Phone: [facility] [place] Comment on above: Patient Question Start: 04-24-2023 Refill Niraj patel APRN.JOSHUA Work Phone: [facility] Comment on above: Refill Request Start: 04-19-2023 End: 04-19-2023 Patient encounter procedure Niraj Andino APRN.FIRE HYDRANT OPERATOR Work Phone: [facility] Comment on above: Picky eater (Primary Dx); Impacted cerumen of left ear; Non-verbal learning disorder Start: 02-28-2023 End: 02-28-2023 Patient encounter procedure Niraj Andino APRN.FIRE HYDRANT OPERATOR Work Phone: [facility] Comment on above: Encounter for immuni zation (Primary Dx); Chronic insomnia Start: 02-25-2023 Telephone encounter Niraj quiñones APRN.FIRE HYDRANT OPERATOR Work Phone: [facility] Comment on above: Refill Request Start: 02-04-2023 Telephone encounter Niraj quiñones APRN.FIRE HYDRANT OPERATOR Work Phone: [facility] Comment on above: Patient Update Start: 01-11-2023 ambulatory Niraj patel APRN.FIRE HYDRANT OPERATOR Work Phone: [facility] Comment on above: Fever Start: 01-11-2023 End: 01-11-2023 [facility] Start: 12-31-2022 Refill Niraj patel APRN.FIRE HYDRANT OPERATOR Work Phone: [facility] Comment on above: Refill Request; Refi ll Request; Refill Request Start: 12-28-2022 Refill Niraj patel APRN.FIRE HYDRANT OPERATOR Work Phone: [facility] Comment on above: Refill Request Start: 12-27-2022 Telephone encounter Niraj quiñones APRN.FIRE HYDRANT OPERATOR Work Phone: [facility] Comment on above: Results Start: 12-25-2022 End: 12-25-2022 Patient encounter procedure Niraj Andino APRN.FIRE HYDRANT OPERATOR Work Phone: [facility] Comment on above: GERD without esophag itis (Primary Dx); Elevated LFTs Start: 12-25-2022 Telephone encounter Niraj quiñones APRN.CNP Work Phone: [facility] Comment on above: Insurance Authorizat ion (Protonix packets ) Start: 12-23-2022 End: 12-23-2022 [facility] Start: 12-23-2022 End: 12-23-2022 Patient encounter procedure Kailee Pettit PA-C Work Phone: [facility] Comment on above: Abdominal pain, unsp ecified abdominal location (Primary Dx) Start: 12-06-2022 End: 12-06-2022 [facility] Start: 12-06-2022 End: 12-06-2022 Patient encounter procedure Niraj Andino APRN.FIRE HYDRANT OPERATOR Work Phone: [facility] Comment on above: Schizophrenia, unspe cified type (HCC) (Primary Dx) Start: 11-26-2022 Social Work Felicitavandana Salgado VAT HOUSE LABORER Wilton vega Start: 11-09-2022 Telephone encounter Niraj quiñones APRN.FIRE HYDRANT OPERATOR Work Phone: [facility] Comment on above: Guardianship Assista nce Start: 11-02-2022 Telephone encounter Talya norwood [facility] Work Phone: Psychology Comment on above: BH consult Medication Problem; Patient Question Start: 11-01-2022 End: 11-01-2022 Patient encounter procedure Niraj Andino APRN.CNP Work Phone: [facility] Comment on above: Schizophrenia, unspe cified type (HCC) (Primary Dx); Well adult exam [Z00.00 (ICD-10-CM)]; GERD without esophagitis; Vitamin D deficiency; Medication management; Screening for diabetes mellitus; Encounter for lipid screening for cardiovascular disease Start: 11-01-2022 End: 11-01-2022 Patient encounter status Niraj Andino APRN.FIRE HYDRANT OPERATOR Work Phone: [facility] Start: 10-22-2022 End: 10-22-2022 ambulatory [facility] Ambulatory Start: 10-22-2022 End: 10-22-2022 Office outpatient [...] Facility:UNKNOWN Start: 07-23-2022 End: 07-23-2022 ambulatory [facility] Start: 07-23-2022 End: 07-23-2022 Encounter for general adult medical examination without abnormal findings [facility] Start: 07-23-2022 End: 07-23-2022 Office outpatient visit 40 minutes Michelle Neely MD Work Phone: Michelle Neely MD Comment on above: Mild protein-calorie malnutrition (CMS/HCC) (Primary Dx); Non-seasonal allergic rhinitis, unspecified trigger; Gastroesophageal reflux disease without esophagitis; Schizophrenic disorder (CMS/HCC); Health care maintenance; Vitamin D deficiency; Screening for colorectal cancer Start: 07-23-2022 End: 07-23-2022 Patient encounter status Michelle Neely MD Work Phone: [facility] Work Phone: Start: 07-22-2022 Encounter for genera l adult medical examination without abnormal findings [facility] Start: 07-22-2022 Patient encounter status Michelle Neely MD Work Phone: [facility] Work Phone: Start: 06-04-2022 End: 06-06-2022 Patient encounter procedure Michelle Neely MD Work Phone: [facility] Work Phone: Start: 06-04-2022 End: 06-06-2022 Physical examination Michelle Neely MD Work Phone: [facility] Work Phone: Start: 04-24-2022 Office outpatient vi sit 25 minutes Michelle Neely Work Phone: [facility] Work Phone: Start: 04-24-[address] Michelle Neely Facility:[id number] Start: 01-23-2022 Office outpatient vi sit 25 minutes Michelle Salvador Keenan Work Phone: [facility] Work Phone: Start: 01-23-[address] Michelle Neely Facility:[id number] Start: 12-12-2021 AUDIT Michelle Munoz khail Work Phone: [facility] [...] Office outpatient vi sit 40 minutes Michelle Neely Work Phone: [facility] Work Phone: Start: 07-26-[address] Michelle Neely Facility:[id number] Start: 06-20-2021 AUDIT Michelle Munoz khail Work Phone: [facility] Work Phone: Start: 03-16-2021 AUDIT Michelle andradeail Work Phone: [facility] Work Phone: Start: 04-03-2019 Patient encounter procedure Michelle Neely [facility] Work Phone: Start: 01-02-2019 Patient encounter procedure Michelle Neely [facility] Work Phone: Start: 10-03-2018 Patient encounter procedure Michelle Neely [facility] Work Phone: Start: 07-04-2018 Patient encounter procedure Michelle Neely [facility] Work Phone: Start: 02-28-2018 Patient encounter procedure Michelle Neely [facility] Work Phone: Start: 12-06-2017 Patient encounter procedure Michelle Neely [facility] Work Phone: Start: 08-30-2017 Patient encounter procedure Michelle Neely [facility] Work Phone: Start: 07-19-2017 Patient encounter procedure Michelle Neely [facility] Work Phone: Patient encounter procedure Michelle Barrioshail Work Phone: [facility] Work Phone: Physical examination Michelle Salvador [facility]an Work Phone: [facility] Work Phone: Procedures Date Procedure Procedure Detail Performing Clinician Start: 02-11-2025 Plain X-ray abdomen Milan Andino TOOLMAKER GRADE THREE-C Work Phone: Start: 12-09-2024 Urnls dip stick/tabl et reagent auto microscopy Niraj Andino [employer]C Work Phone: Start: 12-09-2024 Estimated creatinine clearance Niraj Andino [employer]C Work Phone: Start: 11-03-2024 Alternaria alternata RAST Niraj Andino [employer]OLMAKER [employer]ADE [employer]-C Work Phone: Start: 11-03-2024 Ugandan cockroach RAST Niraj Andino [employer]MAKER [employer]ADE [employer]-C Work Phone: Start: 11-03-2024 Box elder RAST Niraj Andino [employer]MAKER [employer]C Work Phone: Start: 11-03-2024 Cat dander RASDavey Clifford Andino [employer]OLMAKER [employer]-C Work Phone: Start: 11-03-2024 [place] RAST Nirajdouglas quiñones [employer]OLMAKER [employer]ADE [employer]-C Work Phone: Start: 11-03-2024 Common ragweed RAST Milan nelsonlle Sina [employer]C Work Phone: Start: 11-03-2024 Common silver birch RAST Niraj Andino [employer]MAKER [employer]C Work Phone: Start: 11-03-2024 House dust mite (Df) RAST Niraj Andino [employer]C Work Phone: Start: 11-03-2024 Mouse urine proteins RAST Niraj Andino [employer]C Work Phone: Start: 11-03-2024 Pecan nut RAST Niraj Andino [employer]C Work Phone: Start: 11-03-2024 Penicillium chrysoge num RASDavey Niraj Andino [employer]C Work Phone: Start: 11-03-2024 Citizen Of [place] thistle RAST Da althea Andino [employer]MAKER [employer]C Work Phone: Start: 11-03-2024 Tree pollen RAST Joshua Julian [employer]C Work Phone: Start: 11-03-2024 [place] pollen RAST Joshua Julian [employer]OLMAKER [employer]-C Work Phone: Start: 09-30-2024 Us abdominal real ti me w/image limited Niraj Andino BOILER OPERATOR HELPER.FIRE HYDRANT OPERATOR Work Phone: Start: 08-27-2024 AUDIOGRAM Jory E Co rbett AuD Work Phone: Start: 08-11-2024 Lipid 1996 panel - S jose armando or Plasma Niraj Andino APRN.FIRE HYDRANT OPERATOR Work Phone: Start: 07-01-2024 Radiologic exam ches t 2 views Donna Aponte BOILER OPERATOR HELPER.FIRE HYDRANT OPERATOR Work Phone: Start: 04-02-2024 Radiologic exam ches t 2 views Niraj Andino APRN.FIRE HYDRANT OPERATOR Work Phone: Start: 12-19-2023 Radiologic examinati on skull 4/> views Niraj Andino APRN.FIRE HYDRANT OPERATOR Work Phone: Start: 09-29-2023 CT of abdomen and pe lvis without contrast Start: 09-02-2023 Urnls dip stick/tabl et reagent auto microscopy Georgia A Suppdonya BOILER OPERATOR HELPER.ROLLER SKATE REPAIRER Work Phone: Start: 09-02-2023 Urnls dip stick/tabl et rgnt auto w/o microscopy Georgia Milton BOILER OPERATOR HELPER.ROLLER SKATE REPAIRER Work Phone: Start: 07-25-2023 Lipid 1995 panel - S jose armando or Plasma Niraj Andino BOILER OPERATOR HELPER.FIRE HYDRANT OPERATOR Work Phone: Start: 06-25-2023 Radiologic exam abdo men 1 view Niraj Andino APRN.FIRE HYDRANT OPERATOR Work Phone: Start: 02-28-2023 INFLUENZA VACCINE, A GE 6 MO - 64 YR, QUADRIVALENT (AFLURIA, FLULAVAL, FLUZONE) Niraj Andino APRN.FIRE HYDRANT OPERATOR Work Phone: Start: 01-11-2023 Plain chest X-ray Start: 01-11-2023 SARS-CoV-2 & FLU Ant igen (Rapid) Start: 12-23-2022 Computed tomography of abdomen and pelvis with intravenous contrast Start: 12-23-2022 US scan of gallbladder Start: 07-23-2022 Oncology colorectal screening juany 10 dna markrs MICHELLE NEELY Start: 10-25-2021 Follow-up visit Start: 07-26-2021 Lipid 1995 panel - S jose armando or Plasma Michelle Neely MD Work Phone: NEGATED: Highlighted row has not occurred! Denies Surgery Michelle freed Work Phone: Plan of Treatment Date Care Activity Detail Author Start: 03-03-2034 Tetanus vaccination TETANUS U [facility] Start: 03-03-2034 Urine microalbumin profile DTaP,Tdap,Td Vaccine (2 - Td or Tdap) [facility] Start: 08-11-2029 Lipid panel Lipid Screening [facility] Start: 07-24-2028 Lipid panel Lipid Screening [facility] Start: 12-19-2027 Diabetes Screening Diabetes Screening [facility] Start: 08-12-2027 Diabetes Screening Diabetes Screening [facility] Start: 07-26-2026 Lipid 1996 panel - Serum or Plasma Lipid Screening [facility] Start: 07-26-2026 Lipid panel [facility] Start: 07-26-2026 LIPID SCREEN LIPID SCREEN [facility] Start: 07-24-2026 Diabetes Screening Diabetes Screening [facility] Start: 06-25-2026 Diabetes Screening Diabetes Screening [facility] Start: 2026 Zoster Vaccines (1 of 2) Zoster Vaccines (1 of 2) [facility] Start: 01-25-2026 End: 01-25-2026 Patient encounter procedure 01/25/2026 2:15 PM EDT Office Visit [facility] [address] [place], [place] [id number] Janett Perdomo, OD [address] [place] [address] Diagnostics, [facility] [address] [id number] 1 YR F/U for complete eye exam. Ophthalmology Comment on above: 1 YR F/U for complete eye exam. Start: 12-25-2025 DIABETES SCREEN DIABETES SCREEN [facility] Start: 12-25-2025 Diabetes Screening Diabetes Screening [facility] Start: 08-11-2025 Anxiety Screening Anxiety Screening [facility] Comment on above: Postponed from 1994 (Declined at t his time) Start: 02-16-2025 End: 02-16-2025 Patient encounter procedure 02/16/2025 3:40 PM EDT Office Visit [facility] [place] [address] [facility] [place] [address] Niraj Andino APRN.FIRE HYDRANT OPERATOR [address] [place], [place] [id number] 6 month follow up [facility] Comment on above: 6 month follow up Start: 02-11-2025 End: 02-11-2025 Patient encounter procedure 02/11/2025 3:40 PM EDT Office Visit [facility] [address] [facility] [place] [address] Niraj Andino APRN.FIRE HYDRANT OPERATOR [address] [place], [place] [address] 6 month follow up [facility] Comment on above: 6 month follow up Start: 01-22-2025 End: 01-22-2025 Patient encounter procedure 01/22/2025 2:30 PM EDT Office Visit [facility] [address] [facility] [place] [address] Janett Perdomo, OD [address] [place] [address] Diagnostics, Eye Tech And [facility] [place] [address] blurry vision Ophthalmology Comment on above: blurry vision Start: 01-18-2025 Influenza vaccination Influenza Vaccine (#1) [facility] Start: 01-12-2025 End: 04-13-2025 Bacteria identified in Urine by Culture BACTERIAL CULTURE, URINE Microbiology Routine Lower abdominal pain Expected: 01/12/2025, Expires: 04/13/2025 [facility] Comment on above: Expected: 01/12/2025, Expires: Start: 01-12-2025 End: 04-13-2025 Urinalysis complete panel - Urine URINALYSIS, WITH MICROSCOPIC Lab Routine Lower abdominal pain Expected: 01/12/2025, Expires: 04/13/2025 [facility] Work Phone: Comment on above: Expected: 01/12/2025, Expires: Start: 12-09-2024 [facility] Start: 10-06-2024 Hepatitis B vaccination HEP B VACCINE (3 of 3 - 19+ 3-dose series) [facility] Start: 10-06-2024 Hepatitis B Vaccine (3 of 3 - 19+ 3-dose series) Hepatitis B Vaccine (3 of 3 - 19+ 3-dose series) [facility] Start: 09-30-2024 End: 09-30-2024 Patient encounter procedure 09/30/2024 1:00 PM EDT Appointment Radiology [address] [place] [address] Elevated alkaline phosphatase level [R74.8]; Elevated LFTs [R79.89] Radiology Comment on above: Elevated alkaline phosphatase level [R74 .8]; Elevated LFTs [R79.89] Start: 09-29-2024 End: 09-29-2024 Patient encounter procedure [facility] [place] Start: 09-01-2024 Hepb vaccine adult 3 dose schedule for im use HEP B VACCINE, 3-DOSE, AGE 20+ YR (ENGERIX-B, RECOMBIVAX HB) Immunization/Injection Routine Need for vaccination Expected: 09/01/2024 (Approximate) [facility] Comment on above: Expected: 09/01/2024 (Approximate) Start: 08-28-2024 End: 11-27-2024 Hepatic function 2000 panel - Serum or Plasma HEPATIC FUNCTION PNL Lab Routine Elevated LFTs Expected: 08/28/2024, Expires: 11/27/2024 [facility] Work Phone: Comment on above: Expected: 08/28/2024, Expires: Start: 08-27-2024 End: 11-26-2024 ALK PHOS ISOENZYM BL ALK PHOS ISOENZYM BL Lab Routine Elevated alkaline phosphatase level Expected: 08/27/2024, Expires: 11/26/2024 [facility] Work Phone: Comment on above: Expected: 08/27/2024, Expires: Start: 08-27-2024 End: 11-26-2024 Gamma glutamyl transferase [Enzymatic activity/volume] in Serum or Plasma GGT Lab Routine Elevated alkaline phosphatase level Expected: 08/27/2024, Expires: 11/26/2024 [facility] Comment on above: Expected: 08/27/2024, Expires: Start: 08-27-2024 End: 11-26-2024 Mitochondria Ab [Presence] in Serum by Immunofluorescence MITOCHONDRIAL M2 IGG SERUM Lab Routine Elevated alkaline phosphatase level Expected: 08/27/2024, Expires: 11/26/2024 [facility] Comment on above: Expected: 08/27/2024, Expires: Start: 08-11-2024 End: 08-11-2024 Patient encounter procedure 08/11/2024 3:40 PM EDT Office Visit [facility] [address] [place], [place] [id number] Niraj Andino APRN.[facility] [address] [place] [address] physical [facility] Comment on above: physical Start: 08-11-2024 End: 11-10-2024 25-hydroxyvitamin D3 [Mass/volume] in Serum or Plasma [facility] Comment on above: Expected: 08/11/2024, Expires: Start: 08-11-2024 End: 11-10-2024 Comprehensive metabolic 2000 panel - Serum or Plasma [facility] Work Phone: Comment on above: Expected: 08/11/2024, Expires: Start: 08-11-2024 Depression Screening Depression Screening [facility] Comment on above: Postponed from 1994 (Declined at t his time) Start: 08-11-2024 End: 11-10-2024 Iron and Iron binding capacity panel - Serum or Plasma [facility] Comment on above: Expected: 08/11/2024, Expires: Start: 08-11-2024 End: 11-10-2024 LIPID PANEL, NONFASTING [facility] Comment on above: Expected: 08/11/2024, Expires: Start: 08-11-2024 End: 11-10-2024 Thyrotropin [Units/volume] in Serum or Plasma [facility] Comment on above: Expected: 08/11/2024, Expires: Start: 05-20-2024 Medicare Advantage Annual Wellness Visit Medicare Advantage Annual Wellness Visit [facility] Start: 04-02-2024 End: 07-02-2024 25-hydroxyvitamin D3 [Mass/volume] in Serum or Plasma [facility] Comment on above: Expected: 04/02/2024, Expires: Start: 04-02-2024 End: 07-02-2024 CBC W Auto Differential panel - Blood [facility] Comment on above: Expected: 04/02/2024, Expires: Start: 04-02-2024 End: 07-02-2024 Thyrotropin [Units/volume] in Serum or Plasma [facility] Work Phone: Comment on above: Expected: 04/02/2024, Expires: Start: 03-31-2024 End: 03-31-2024 Nursing evaluation of patient and report 03/31/2024 3:45 PM EST Nurse Visit [facility] [address] [place] [id number] Nurse, [address] [address] Hep B series 2nd injection [facility] Comment on above: Hep B series 2nd injection Start: 03-31-2024 Hepatitis B Vaccine (2 of 3 - 19+ 3-dose series) Hepatitis B Vaccine (2 of 3 - 19+ 3-dose series) [facility] Start: 03-03-2024 End: 03-03-2024 Nursing evaluation of patient and report 03/03/2024 3:45 PM EDT Nurse Visit [facility] [address] [place] [address] Nurse, [address] [address] Hep B series (1st injection), Dtap, ? flu shot [facility] Comment on above: Hep B series (1st injection), Dtap, ? fl u shot Start: 02-20-2024 End: 05-21-2024 Acute hepatitis 2000 panel - Serum [facility] Comment on above: Expected: 02/20/2024, Expires: Start: 02-20-2024 End: 05-21-2024 Clostridium tetani IgG Ab [Units/volume] in Serum by Immunoassay [facility] Comment on above: Expected: 02/20/2024, Expires: Start: 02-20-2024 End: 05-21-2024 DIPHTHERIA IGG ABS [facility] Comment on above: Expected: 02/20/2024, Expires: Start: 02-20-2024 End: 05-21-2024 MUMPS IGG AB [facility] Comment on above: Expected: 02/20/2024, Expires: Start: 02-20-2024 End: 05-21-2024 RUBEOLA (MEASLES)IGG [facility] Comment on above: Expected: 02/20/2024, Expires: Start: 02-20-2024 End: 05-21-2024 VARICELLA ZOSTER IGG [facility] Comment on above: Expected: 02/20/2024, Expires: Start: 01-19-2024 Covid-19 Vaccine ( season) Covid-19 Vaccine ( season) [facility] Start: 01-19-2024 Covid-19 Vaccine ( season) Covid-19 Vaccine ( season) [facility] Start: 01-19-2024 Influenza vaccination Influenza Vaccine (#1) [facility] Start: 09-30-2023 [facility] Start: 07-25-2023 End: 10-24-2023 25-hydroxyvitamin D3 [Mass/volume] in Serum or Plasma [facility] Work Phone: Comment on above: Expected: 07/25/2023, Expires: 4 Start: 07-25-2023 End: 10-24-2023 CBC W Auto Differential panel - Blood [facility] Work Phone: Comment on above: Expected: 07/25/2023, Expires: Start: 07-25-2023 End: 10-24-2023 Cobalamin (Vitamin B12) [Mass/volume] in Serum or Plasma [facility] Work Phone: Comment on above: Expected: 07/25/2023, Expires: Start: 07-25-2023 End: 10-24-2023 Ferritin [Mass/volume] in Serum or Plasma [facility] Work Phone: Comment on above: Expected: 07/25/2023, Expires: Start: 07-25-2023 End: 10-24-2023 Folate [Mass/volume] in Serum or Plasma [facility] Work Phone: Comment on above: Expected: 07/25/2023, Expires: Start: 07-25-2023 End: 10-24-2023 Hemoglobin A1c in Blood [facility] Work Phone: Comment on above: Expected: 07/25/2023, Expires: Start: 07-25-2023 End: 10-24-2023 Iron and Iron binding capacity panel - Serum or Plasma [facility] Work Phone: Comment on above: Expected: 07/25/2023, Expires: Start: 07-25-2023 End: 10-24-2023 LIPID PANEL, NONFASTING [facility] Work Phone: Comment on above: Expected: 07/25/2023, Expires: Start: 07-25-2023 End: 10-24-2023 Thyrotropin [Units/volume] in Serum or Plasma [facility] Work Phone: Comment on above: Expected: 07/25/2023, Expires: 4 Start: 05-20-2023 Behavioral Health Screening Behavioral Health Screening [facility] Start: 05-20-2023 Depression Assessment Depression Assessment [facility] Start: 01-18-2023 Covid-19 Vaccine () Covid-19 Vaccine () [facility] Start: 01-18-2023 Influenza vaccination [facility] Start: 12-25-2022 End: 02-24-2023 Comprehensive metabolic 2000 panel - Serum or Plasma [facility] Work Phone: Comment on above: Expected: 12/25/2022, Expires: Start: 12-06-2022 Referral to service [facility] Start: 11-01-2022 End: 01-01-2023 CBC W Auto Differential panel - Blood CBC + DIFF Lab Routine Medication management Expected: 11/01/2022, Expires: 01/01/2023 [facility] Work Phone: Comment on above: Expected: 11/01/2022, Expires: Start: 11-01-2022 End: 01-01-2023 Comprehensive metabolic 2000 panel - Serum or Plasma COMP METABOLIC PANEL Lab Routine Medication management Expected: 11/01/2022, Expires: 01/01/2023 [facility] Work Phone: Comment on above: Expected: 11/01/2022, Expires: 3 Start: 11-01-2022 End: 01-01-2023 Hemoglobin A1c in Blood HGB A1C Lab Routine Screening for diabetes mellitus Expected: 11/01/2022, Expires: 01/01/2023 [facility] Work Phone: Comment on above: Expected: 11/01/2022, Expires: 3 Start: 11-01-2022 End: 01-01-2023 LIPID PANEL, NONFASTING LIPID PANEL, NONFASTING Lab Routine Encounter for lipid screening for cardiovascular disease Expected: 11/01/2022, Expires: 01/01/2023 [facility] Work Phone: Comment on above: Expected: 11/01/2022, Expires: 3 Start: 10-22-2022 End: 10-22-2022 Patient encounter procedure 10/22/2022 8:30 AM EDT Office Visit Michelle Neely MD [address] [place] [address] [phone] Michelle Neely MD [address] [facility], [address] [address] Michelle Neely MD Start: 07-23-2022 End: 07-24-2023 CBC and Differential, Stem Cell/Drainage CBC and Differential, Stem Cell/Drainage Lab Routine Mild protein-calorie malnutrition (CMS/HCC) Health care maintenance Expected: 07/23/2022 (Approximate), Expires: 07/24/2023 [facility] Service Area Work Phone: Comment on above: Expected: 07/23/2022 (Approximate), Expi res: 07/24/2023 Start: 07-23-2022 End: 07-24-2023 Cologuard colon cancer screening Cologuard colon cancer screening Lab Routine Screening for colorectal cancer Expected: 07/23/2022 (Approximate), Expires: 07/24/2023 [facility] Work Phone: Comment on above: Expected: 07/23/2022 (Approximate), Expi res: 07/24/2023 Start: 07-23-2022 End: 07-24-2023 Comprehensive metabolic 2000 panel - Serum or Plasma Comprehensive Metabolic Panel Lab Routine Health care maintenance Expected: 07/23/2022 (Approximate), Expires: 07/24/2023 [facility] Work Phone: Comment on above: Expected: 07/23/2022 (Approximate), Expi res: 07/24/2023 Start: 07-23-2022 End: 07-24-2023 Lipid 1996 panel - Serum or Plasma Lipid Panel Lab Routine Health care maintenance Expected: 07/23/2022 (Approximate), Expires: 07/24/2023 [facility] Work Phone: Comment on above: Expected: 07/23/2022 (Approximate), Expi res: 07/24/2023 Start: 07-23-2022 End: 07-24-2023 TSH with reflex to Free T4 if abnormal TSH with reflex to Free T4 if abnormal Lab Routine Health care maintenance Expected: 07/23/2022 (Approximate), Expires: 07/24/2023 [facility] Work Phone: Comment on above: Expected: 07/23/2022 (Approximate), Expi res: 07/24/2023 Start: 07-23-2022 FUV, Provider: Michelle Neely, Status: Pen, Time: 8:45 AM FUV, Provider: Michelle Neely, Status: Pen, Time: 8:45 AM [facility] Work Phone: Start: 05-20-2022 DEPRESSION ASSESSMENT DEPRESSION ASSESSMENT [facility] Start: 04-24-2022 FUV, Provider: Michelle Neely, Status: Pen, Time: 8:30 AM FUV, Provider: Michelle Neely, Status: Pen, Time: 8:30 AM [facility] Work Phone: Start: 01-23-2022 FUV, Provider: Michelle Neely, Status: Pen, Time: 8:30 AM FUV, Provider: Michelle Neely, Status: Pen, Time: 8:30 AM [facility] Work Phone: Start: 01-18-2022 Influenza vaccination Influenza Vaccine (#1) [facility] Start: 10-25-2021 Patient encounter procedure MCRANNUAL, Provider: Michelle Neely, Status: Pen, Time: 8:45 AM [facility] Work Phone: Start: 07-26-2021 FUV, Provider: Michelle Neely, Status: Pen, Time: 8:30 AM FUV, Provider: Michelle Neely, Status: Pen, Time: 8:30 AM [facility] Work Phone: Start: 2021 COLOGUARD (FIT-DNA) COLOGUARD (FIT-DNA) [facility] Start: 2021 Colonoscopy COLONOSCOPY [facility] Start: 2021 COLORECTAL CANCER SCREENING COLORECTAL CANCER SCREENING [facility] Start: [address] COLONOGRAPHY [facility] Start: 2021 DIABETES SCREEN DIABETES SCREEN [facility] Start: 2021 FECAL OCCULT BLOOD FECAL OCCULT BLOOD [facility] Start: 2021 Screening for malignant neoplasm of colon [facility] Start: 2021 SIGMOIDOSCOPY SIGMOIDOSCOPY [facility] Start: 03-29-2021 FUV, Provider: Michelle Neely, Status: Pen, Time: 8:30 AM FUV, Provider: Michelle Neely, Status: Pen, Time: 8:30 AM Jacky Work Phone: Start: 2016 Lipid panel LIPID SCREENING [facility] Start: 1998 DTaP/Tdap/Td Vaccines (1 - Tdap) DTaP/Tdap/Td Vaccines (1 - Tdap) [facility] Start: 1995 Hepatitis B Vaccine (1 of 3 - 19+ 3-dose series) Hepatitis B Vaccine (1 of 3 - 19+ 3-dose series) [facility] Start: 1995 Urine microalbumin profile [facility] Start: 1994 Anxiety Screening Anxiety Screening [facility] Start: 1994 COVID-19 Vaccine (#1) COVID-19 Vaccine (#1) [facility] Start: 1994 Depression Screening Depression Screening [facility] Start: 1994 Hepatitis C screening Hepatitis C Screening [facility] Start: 1994 HEPATITIS C SCREENING HEPATITIS C SCREENING [facility] Start: 1994 HIV SCREENING HIV SCREENING [facility] Start: 1994 HIV screening HIV Screening [facility] Start: 1991 HIV screening HIV SCREENING DISCUSSION [facility] Start: 1983 DTaP/Tdap/Td Vaccines (1 - Tdap) DTaP/Tdap/Td Vaccines (1 - Tdap) [facility] Start: 1977 MMR Vaccines (1 of 1 - Standard series) MMR Vaccines (1 of 1 - Standard series) [facility] Start: 1976 COVID-19 Vaccine (#1) COVID-19 Vaccine (#1) [facility] Start: 1976 HEPATITIS B (1 of 3 - 3-dose series) HEPATITIS B (1 of 3 - 3-dose series) [facility] Start: 1976 Hepatitis B Vaccine (1 of 3 - 3-dose series) Hepatitis B Vaccine (1 of 3 - 3-dose series) [facility] Start: 1976 Hepatitis B Vaccines (1 of 3 - 3-dose series) Hepatitis B Vaccines (1 of 3 - 3-dose series) [facility] Start: 1976 Hepatitis C screening HEPATITIS C VIRUS SCREENING [facility] Start: 1976 HIV screening HIV Screening [facility] Start: 1976 Medicare Annual Wellness Visit Medicare Annual Wellness Visit (AWV) [facility] Start: 1976 Screening for malignant neoplasm of colon [facility] Bilirubin measuremen t, urine [facility] Binocular microscopy separate dx procedure [place] BINOCULAR MICROSCOPY SEPARATE DX PROCEDURE [place] Charge Routine Asymmetric SNHL (sensorineural hearing loss) Ordered: 09/29/[address] [facility] Comment on above: Ordered: 09/29/2024 Clostridioides diffi cile DNA [Presence] in Unspecified specimen by MICHAELA with probe detection [facility] COVID & INFLUENZA A/ B & RSV PCR, ROUTINE COVID & INFLUENZA A/B & RSV PCR, ROUTINE Microbiology Routine Cough in adult Sore throat Ordered: 02/20/2024 [facility] Work Phone: Comment on above: Ordered: 02/20/2024 COVID & INFLUENZA A/ B & RSV PCR, ROUTINE COVID & INFLUENZA A/B & RSV PCR, ROUTINE Microbiology Routine URI, acute 06/22/2024 4:35 PM EST [facility] Work Phone: COVID & INFLUENZA A/ B & RSV PCR, ROUTINE COVID & INFLUENZA A/B & RSV PCR, ROUTINE Microbiology Routine Acute cough Ordered: 07/01/2024 [facility] Work Phone: Comment on above: Ordered: 07/01/2024 Giardia lamblia Ag [Presence] in Stool by Immunoassay [facility] End: 08-29-2025 HEARING TEST/AUDIOGRAM HEARING TEST/AUDIOGRAM Audiology Routine Non-verbal learning disorder 1 Occurrences starting 08/28/2024 until 08/29/2025 [facility] Work Phone: Comment on above: 1 Occurrences starting 08/28/2024 until 08/29/2025 Helicobacter pylori Ag [Presence] in Stool by Immunoassay [facility] Hemoglobin [Presence ] in Urine [facility] Hepb vaccine adult 3 dose schedule for im use HEP B VACCINE, 3-DOSE, AGE 20+ YR (ENGERIX-B, RECOMBIVAX HB) Immunization/Injection Routine Need for vaccination Ordered: 03/16/2024 [facility] Work Phone: Comment on above: Ordered: 03/16/2024 Lactoferrin [Presenc e] in Stool by Immunoassay [facility] Measurement of keton es in urine using dipstick [facility] Microscopic urinalysis [facility] Nucleic acid assay [facility] Ova OR parasites identification [facility] Patient Education [facility] Work Phone: Patient referral [facility] Work Phone: pH of Urine [facility] Protein measurement [facility] RUBELLA TITER, IGG B/O RUBELLA T ITER, IGG B/O Lab Routine Measles, mumps, rubella (MMR) vaccination status unknown Ordered: 02/20/2024 [facility] Comment on above: Ordered: 02/20/2024 Specific gravity of Urine [facility] Tdap vaccine 7 yrs/> im TDAP VAC CINE, AGE 7+ YR (ADACEL, BOOSTRIX) Immunization/Injection Routine Encounter for immunization Ordered: 02/27/2024 [facility] Work Phone: Comment on above: Ordered: 02/27/2024 Urinalysis, blood, qualitative [facility] Urine dipstick for glucose [facility] Urine dipstick for leukocyte esterase [facility] Urine dipstick for nitrite [facility] Urine dipstick for protein [facility] Urine examination [facility] Urine microscopy: epithelial cells [facility] Urine Microscopy: wh ite cells [facility] Urobilinogen [Presen ce] in Urine [facility] End: 10-17-2025 US Abdomen RUQ US ABD RIGHT UPPER QUADRANT Radiology Routine Elevated alkaline phosphatase level Elevated LFTs 1 Occurrences starting 09/17/2024 until 10/17/2025 [facility] Work Phone: Comment on above: 1 Occurrences starting 09/17/2024 until 10/17/2025 End: 01-17-2025 XR Skull AP and Lateral XR SKULL 2V AP/LAT Radiology Routine Bony prominence 1 Occurrences starting 12/19/2023 until 01/17/2025 [facility] Work Phone: Comment on above: 1 Occurrences starting 12/19/2023 until 01/17/2025 XR Skull AP and Lateral XR SKULL 2V AP/LAT Radiology Routine Bony prominence 12/19/2023 3:47 PM EDT [facility] Immunizations Immunization Date Immunization Notes Care Provider Adele rock 08-11-2024 hepatitis B vaccine, adult dosage Niraj Andino BOILER OPERATOR HELPER.FIRE HYDRANT OPERATOR Work Phone: [facility] 03-03-2024 hepatitis B vaccine, adult dosage Mi Nurse Work Phone: [facility] 03-03-2024 influenza, seasonal, injectable Mi Nurse Work Phone: [facility] 03-03-2024 tetanus toxoid, redu laxmi diphtheria toxoid, and acellular pertussis vaccine, adsorbed Mi Nurse Work Phone: [facility] 03-03-2024 influenza virus vacc ine, unspecified formulation Alize Villa BOILER OPERATOR HELPER.FIRE HYDRANT OPERATOR Work Phone: [facility] 02-28-2023 influenza, injectabl e, quadrivalent, contains preservative Niraj Andino BOILER OPERATOR HELPER.FIRE HYDRANT OPERATOR Work Phone: [facility] 02-28-2023 influenza virus vacc ine, unspecified formulation Nriaj Andino BOILER OPERATOR HELPER.FIRE HYDRANT OPERATOR Work Phone: [facility] Payers Date Payer Category Payer Self-pay 2023 Medicare (Managed Care) [id number]. [id number] 2023 Unknown [id number] 2017 Medicaid [id number] 2017 Medicaid [id number] 2001 Medicare [id number] 2001 Medicare [id number] 1976 Unknown [id number] [id number]6 1976 Unknown [id number] 2.16.840.1.748370.3.579.2.356 1976 Unknown [id number] 2.16.840.1.523764.3.579.2.356 1976 Unknown [id number] 2.16.840.1.102938.3.579.2.356 1976 Unknown [id number] 2.16.840.1.504136.3.579.2.693 1976 Unknown [id number] 2.16.840.1.096128.3.579.2.1244 1976 Unknown [id number] 2.16.840.1.906831.3.579.2.1244 1976 Unknown [id number] 2.16.840.1.270906.3.579.2.594 1976 Unknown [id number] 2.16.840.1.688791.3.579.2.594 Medicare MEDICARE PART A B [id number] Unknown Unknown [id number] 2.16.840.1.111953.3.579.2.462 Unknown [id number] 2.16.840.1.720586.3.579.2.462 Unknown [id number] 2.16.840.1.582769.3.579.2.462 Unknown [id number] 2.16.840.1.040909.3.579.2.462 Unknown [id number] 2.16.840.1.983585.3.579.2.462 Unknown [id number] 2.16.840.1.238224.3.579.2.462 Unknown [id number] 2.16.840.1.348204.3.579.2.462 Unknown [id number] 2.16.840.1.805797.3.579.2.462 Unknown [id number] 2.16.840.1.754777.3.579.2.462 Unknown [id number] 2.16.840.1.375093.3.579.2.462 Unknown [id number] 2.16.840.1.684273.3.579.2.462 Social History Date Type Detail Facility Start: 10-22-2022 End: 12-25-2022 Caregiver: Family member Caregiver: Family member Jacky Work Phone: Start: 07-23-2022 End: 12-09-2024 Tobacco smoking status NHIS Never smoked tobacco [facility] History of tobacco use Passive smoker [facility] Work Phone: Start: 07-23-2022 End: 11-01-2022 Tobacco use and exposure Smokeless tobacco non-user [facility] Work Phone: Start: 10-22-2022 End: 01-22-2025 Alcohol intake Lifetime non-drinker (finding) [facility] Work Phone: Start: 10-22-2022 End: 12-25-2022 Tobacco use panel [facility] Start: 1975 Sex Assigned At Not on file U [facility] Work Phone: Start: 07-13-2022 End: 10-22-2022 Exposure to SARS-CoV-2 (event) Not sure [facility] Start: 10-16-2022 National Score (1-100), lower number is lower risk 99 [facility] Start: 12-06-2022 End: 09-29-2023 Tobacco smoking status NHIS Unknown if ever smoked [facility] Start: 1975 Sex Assigned At Male [facility] Start: 08-14-2024 Sex Male (finding) [facility] Start: 08-26-2024 Gender identity Identifies as male gender (finding) [facility] Start: 08-26-2024 Sexual orientation Heterosexual (fin ding) [facility] NEGATED: Highlighted row - - [facility] Work Phone: Functional Status Date Assessment Result Facility NEGATED: Highlighted row Functional performance Functional status health issues are not documented Disease [facility] Work Phone: Mental Status Date Assessment Result Facility 12-09-2024 Cognitive function Level Of Cons ciousness Awake;Alert [facility] Work Phone: 01-11-2023 Cognitive function Level Of Cons ciousness Awake;Alert;Appropriate [facility] Work Phone: NEGATED: Highlighted row Cognitive function [Interpretation] Cognitive status health issues are not documented Disease [facility] Work Phone: Clinical Notes 07-23-2022 to 02-16-2025 Janett Perdomo, ANA - 01/22/2025 3:20 PM EDTPatient InstructionsTelephone Encounter - Michelle Tijerina RN - 01/15/2025 12:47 PM EDTTelephone Encounter - Leidy Shrestha LPN - 01/15/2025 10:46 AM EDT Note Date & Type Note Facility 02-16-2025 Note HNO ID: [id number] Author: NIRAJ ANDINO APRN.FIRE HYDRANT OPERATOR Service: ? Author Type: Nurse Practitioner Type: Progress Notes Filed: 02/16/2025 16:19 Note Text: Chief Complaint Patient presents with: 6 Month Exam HPI Arvind Domínguez is a 49 year old male who presents here today for Above Complaints. Patient presents for routine follow up. Patient's sister reports he has been doing well, would like his ears checked. Reports he is using picture chart at home and doing well. Verbal skills are reported to be improving. Past medical history, appointments, medications, allergies reviewed. Previous Medical History PAST MEDICAL HISTORY Diagnosis Date Autism (HCC) GERD (gastroesophageal reflux disease) Mental disability Schizophrenia [...] Dr Chong (Patient not taking: Reported on 01/22/2025) KAOPECTATE, ATTAPULGITE, ORAL Take by mouth. Dr [...] (FLONASE) 50 mcg/actuation nasal spray Use 1 Sabine in each nostril once daily. OLANZapine orally disintegrating (ZYPREXA ZYDIS) 5 mg disintegrating tablet Take 5 mg by mouth daily at bedtime. Nutritional Supplements (ENSURE PUDDING) pudg Take 113 g by mouth twice daily. No current facility-administered medications on file prior to visit. Social History SOCIAL HISTORY[1] Review of Symptoms REVIEW OF SYSTEMS SEE HPI EXAM: BP 149/90 Pulse 101 Wt 71 kg (156 lb 8.4 oz) BMI 22.46 kg/m? General Appearance: Well appearing, alert, in no acute distress, well-hydrated, well nourished. Lungs: Lungs clear to auscultation. No wheezing, rhonchi, rales.. Heart: RRR without murmur, gallop, or rubs. No ectopy. Peripheral Pulses: Normal. Health Maintenance List Depression Screening Never done HIV Screening Never done Colorectal Cancer Screening Never done Medicare Advantage Annual Wellness Visit Never done Hepatitis B Vaccine(3 of 3 - 19+ 3-dose series) due on 10/06/2024 Influenza Vaccine(1) due on 01/18/2025 Anxiety Screening due on 08/11/2025 Diabetes Screening due on 12/19/2027 Lipid Screening due on 08/11/2029 DTaP,Tdap,Td Vaccine(2 - Td or Tdap) due on 03/03/2034 Hepatitis C Screening Completed ASSESSMENT/PLAN: 1. Vitamin D deficiency - ICD9: 268.9, ICD10: E55.9 (primary diagnosis) - VITAMIN D 25 HYDROXY - ERGOCALCIFEROL (VITAMIN D2) 1,250 MCG (50,000 UNIT) CAPSULE 2. Iron deficiency - ICD9: 280.9, ICD10: E61.1 - IRON AND TIBC - FERROUS SULFATE 220MG/5ML (120ML) 3. Hyperlipidemia, mixed - ICD9: 272.2, ICD10: E78.2 - Uncontrolled - Continue current medications - Counseled on healthy diet and regular exercise - Discussed need for and benefit of weight loss. BMI 22.46 kg/(m2) - LIPID PANEL, NONFASTING - ATORVASTATIN 20 MG/5 ML (4 MG/ML) ORAL SUSPENSION 4. Encounter for immunization - ICD9: V03.89, ICD10: Z23 - INFLUENZA VACCINE, PRSV FREE, AGE 6MO-64YR, TRIVALENT (AFLURIA, FLUARIX, FLULAVAL, FLUVIRIN, FLUZONE) - HEP B VACCINE, 2-DOSE (HEPLISAV-B) 5. Autism spectrum disorder without accompanying intellectual impairment, requiring support (level 1) ([facility]) - ICD9: 299.00, ICD10: F84.0 - Sees [facility] 6. Seasonal allergies - ICD9: 47 (more content not included)... [facility] 02-11-2025 Radiology Diagnostic study note [facility] Imaging Services [address] [place] [address] Abdomen Single View MR#: [id number] Acct: [id number] Name: ARVIND DOMÍNGUEZ Rep #: [id number] : 1975 M 49 From: Jonnie Forrest MD PCP: BE Patel Status: REG CLI Study:Abdomen Single View Date of Exam: 02/11/25 Exam# [id number] Ordering Dr: Sariah Mcdonald PROCEDURE: ABDOMEN SINGLE VIEW 02/11/2025 REASON FOR EXAM: ABD PAIN TECHNIQUE: Procedure Code: RADABD Modality: DX Procedure: ABDOMEN SINGLE VIEW COMPARISON: None. FINDINGS: There is a nonobstructive bowel gas pattern. There are no abnormal soft tissue calcifications or radiopaque foreign bodies. There are no significant bony abnormalities. RAD/Abdomen Single View IMPRESSION: NO ACUTE FINDINGS Reading Location: [id number] CC: TOOLMAKER GRADE THREE-C Niraj Andino; ANTHONY Matthews ~ Panel Fitter: Signed [facility] Work Phone: 02-11-2025 Progress note [facility] 01-22-2025 Note HNO ID: [id number] Author: JANETT PERDOMO, ANA Service: ? Author Type: Drugless Doctor Type: Progress Notes Filed: 01/22/2025 15:26 Note [...] Perdomo, OD January 22, 2025 3:20 PM [facility] 01-22-2025 History of Present illness Narrative 1. Alternating esotropia (Primary) With [...] with all of its relevant components. Janett Perdomo OD January 22, 2025 3:20 PM documented in this encounter [facility] 01-22-2025 Instructions Janett Perdomo, ANA - 01/22/2025 3:04 PM EDT Use Systane Complete or Refresh Relieva as needed for irritation/in place of eye rubbing documented in this encounter [facility] 01-15-2025 Telephone encounter Note See Telephone Encounter 01/15/2025. [facility] 01-15-2025 Miscellaneous Notes Patient's sister notified [...] Lorraine Dong PA-C documented in this encounter [facility] 01-15-2025 Miscellaneous Notes See Telephone Encounter [...] Negative Negative Ketones, Urine Negative Negative Specific Seth, Ur 1.005 - 1.030 1.020 Hemoglobin/Blood,Ur Negative [...] Michelle Tijerina RN documented in this encounter [facility] 01-15-2025 Telephone encounter Note Patient's sister notified of results and provider's instructions. Patient's sister verbalizes understanding. Michelle Tijerina RN [facility] 01-15-2025 Telephone encounter Note Left message to return call. [facility] 01-15-2025 Telephone encounter Note Let patient's sister know that his urine did show bacteria that should respond to the atb given. I will need to know if he doesn't improve. If worsening, don't hesitate to go to ER over the holiday weekend. Lorraine Dong PA-C [facility] 01-14-2025 Telephone encounter Note Sister Chiki [...] we have the urine culture report back. [facility] 01-14-2025 Telephone encounter Note Let them [...] bowel changes, vomiting, fevers Lorraine Dong PA-C [facility] 01-14-2025 Telephone encounter Note Patient's sister Chiki calls and states that patient continues to not feel well. Chiki had brought in urine to have tested yesterday. Latest Ref Rng 01/13/2025 Color Yellow Yellow Clarity Clear Clear Glucose, Urine Negative Negative Bilirubin, Urine Negative Negative Ketones, Urine Negative Negative Specific Seth, Ur 1.005 - 1.030 1.020 Hemoglobin/Blood,Ur Negative [...] review and advise, Michelle Tijerina RN T [facility] 01-12-2025 Note HNO ID: [id number] Author: LORRAINE DONG PA-C Service: ? Author Type: Physician Mechanical Service Representative Type: Progress Notes Filed: 01/12/2025 11:23 Note [...] (FLONASE) 50 mcg/actuation nasal spray Use 1 Sabine in each nostril once daily. OLANZapine orally disintegrating (ZYPREXA ZYDIS) 5 mg disintegrating tablet Take 5 mg by mouth daily at bedtime. Nutritional Supplements (ENSURE PUDDING) pudg Take 113 g by mouth twice daily. clarithromycin (BIAXIN) 250 mg tablet Take by mouth two times a day. Friend (Patient not taking: Reported on 01/12/2025) No [...] nonverbal but pointed (more content not included)... [facility] 01-12-2025 History of Present illness Narrative Chief Complaint Patient presents with: [...] (FLONASE) 50 mcg/actuation nasal spray Use 1 Sabine in each nostril once daily. OLANZapine orally [...] accompanying intellectual impairment, requiring support (level 1) ([facility]) (F84.0) - Nonverbal communication and limited ability to express symptoms complicate assessment. Lorraine Dong PA-C Recording using [employer] software for draft documentation of the visit was discussed with the patient/authorized member services representative; all questions welcomed and answered. Patient/authorized member services representative agreed to proceed [1] Social History Tobacco Use Smoking status: Never Smokeless tobacco: Never Substance Use Topics Alcohol use: Never Drug use: Never documented in this encounter [facility] 12-18-2024 Telephone encounter Note Reason for [...] Room now. Patient plans to go to [facility] at this time. Encouraged to pulley maintainer and call 911 if anything worsens or changes in route. Jacki Szymanski RN Reason for Disposition [1] Chest pain (or angina) comes and goes AND [2] is happening more often (increasing in frequency) or getting worse (increasing in severity) (Exception: Chest pains that last only a few seconds.) Protocols used: Chest [id number] [facility] 12-18-2024 Miscellaneous Notes Reason for Call: [...] Room now. Patient plans to go to [facility] at this time. Encouraged to pulley maintainer and call 911 if anything worsens or changes in route. Jacki Szymanski RN Reason for Disposition [1] Chest pain (or angina) comes and goes AND [2] is happening more often (increasing in frequency) or getting worse (increasing in severity) (Exception: Chest pains that last only a few seconds.) Protocols used: Chest [id number] documented in this encounter [facility] 12-09-2024 Discharge summary [facility] 12-09-2024 Discharge summary Note Date/Time December 09, 2024 7:42pm [facility] Medical Records Department [address] [place] [address] Emergency Department Summary 12/09/24 MR#: [id number] Acct: [id number] Name: ARVIND DOMÍNGUEZ Rep #:[id number] : 1975 49 From: Marcus Delatorre MD PCP: Niraj Andino, TOOLMAKER GRADE THREE-C Status:REG ER Location: ED HPI History of Present Illness Chief Complaint: General Illness Narrative Narrative: History and physical limited secondary to autism and schizophrenia. Per caretaker grounds and sister who is his legal guardian, [...] they are presenting him for medical screening. [facility] Medical History Rash Low iron Non-smoker [...] gram-180 kcal/36 gram oral powder (Else Toddler Quinlan) Allergy/AdvReac Type Severity Reaction Status Date / [...] historian: Family (Sister and guardian) and Other (Nitric Acid Plant Operator) Lab Data Attestation: I reviewed the patient's lab results. Labs: Laboratory Results - last 24 hr 12/09/24 12/09/24 14:53 17:31 WBC 7.6 RBC 4.98 Hgb 13.8 Hct 42.3 MCV 84.9 MCH 27.7 MCHC 32.6 RDW Std Deviation 41.1 RDW Coeff of Dc 13.2 Plt Count 227 MPV 11.3 Immature Gran % (Auto) 0.400 Neut % (Auto) 70.1 H Lymph % (Auto) 17.7 L Morrison % (Auto) 8.0 Eos % (Auto) 3.5 [...] Clarity Clear Urine pH 7.0 Ur Specific Seth 1.005 Urine Protein Negative Urine Glucose (UA) [...] tablet,chewable 1 g PO DAILY Else Toddler Quinlan 5 gram-180 kcal/36 gram powder 1 ea [...] Primary Care Provider: Niraj Andino Referrals: Niraj Andino, EB [Primary Care Provider] - As soon as possible Activity Restrictions/Additional Instructions: Follow-up with your primary care provider soon as possible. Return with new or worsening symptoms. Your laboratory tests and urinalysis were negative today. His aggressive behavior may be more secondary to a psychiatric or behavioral problem. Print Language: Mozambican Disposition Disposition: Home, Self Care What to do if you have Problems For any increased pain, shortness of breath, bleeding, nausea or vomiting, chestpain, or any unexpected problems, contact your Primary Care Provider. Call [facility] ([phone]) or report to the closest Emergency Room. Call 911 if necessary. 12/09/241941 <Electronically signed by Marcus Delatorre MD> Cosigner Signature (if applicable): CC: TOOLMAKER GRADE THREELuisC Niraj Andino ~ Signed [facility] Work Phone: 1(928) 435-524306-30-2025 NoteHNO ID: [id number] Author: ALIZE VILLA APRN.FIRE HYDRANT OPERATOR Service: ? Author Type: Nurse Practitioner Type: Progress Notes Filed: 11/16/2024 15:25 Note Text: [facility] Arvind Domínguez is a 49 year old [...] have gone and seen ENT at [facility] where has significant hearing loss in [...] (FLONASE) 50 mcg/actuation nasal spray Use 1 Sabine in each nostril once daily. OLANZapine orally [...] primary care if symptoms persist. Alize Villa APRN.FIRE HYDRANT OPERATOR [facility] patient well-appearing nontoxic in no acute distress 49-year-old male who is autistic mainly nonverbal presents with his sister. No concerns of ear infection such as perichondritis, otitis media, otitis externa or rupture tympanic membrane follow-up with ENT versus PCP if symptoms persist she sister verbalized understanding agreement this plan.[facility] 11-16-2024 History of Present illness Narrative* Alize Villa APRN.CNP - 11/16/2024 2:34 PM EDT [employer] [...] have gone and seen ENT at [facility] where has significant hearing loss in [...] (FLONASE) 50 mcg/actuation nasal spray Use 1 Sabine in each nostril once daily. OLANZapine orally [...] primary care if symptoms persist. Alize Villa APRN.FIRE HYDRANT OPERATOR [facility] patient well-appearing nontoxic in no acute distress 49-year-old male who is autistic mainly nonverbal presents with his sister. No concerns of ear infection such as perichondritis, otitis media,otitis externa or rupture tympanic membrane follow-up with ENT versus PCP if symptoms persist she sister verbalized understanding agreement this plan. documented in this encounterClinton [facility]06-[facility]25 Evaluation note* Diagnosis Onset Date Resolution Status Admit Date Constipation acute October 28 3:32pm H. pylori infection acute October 28, 2024 3:32pm Loose stools acute October 28 3:32pm Loose stools acute February 112024 12:59pm Abdominal pain inactive February 11, 2025 12:59pm [facility] Work Phone: 1(546) 938-277205-16-2025 NoteHNO ID: [id number] Author: NIRAJ ANDINO APRN.FIRE HYDRANT OPERATOR Service: ? Author Type: Nurse Practitioner Type: [...] ORAL) Take by mouth. Gummies - Dr. Friend cetirizine HCl (ZYRTEC) 10 mg chewable tablet [...] (FLONASE) 50 mcg/actuation nasal spray Use 1 Sabine in each nostril once daily. loratadine 10 [...] 2.5 MG/5 ML ORAL SOLUTION Niraj Andino APRN.[facility]2025 History of Present illness Narrative* Niraj Andino APRN.[facility] - 10/02/2024 11:28 AM EDT Chief Complaint [...] (FLONASE) 50 mcg/actuation nasal spray Use 1 Sabine in each nostril once daily. loratadine 10 [...] - 2023- season) Never done Hepatitis B Vaccine(3 of [...] 2.5 MG/5 ML ORAL SOLUTION Niraj Andino APRN.FIRE HYDRANT OPERATOR documented in this encounterClinton [facility]05-15-2025 Telephone encounter Note * Telephone Encounter - Holley Bashir MA - 10/01/2024 5:11 PM EDT Chiki notified and verbalized understanding esophoria [facility]05-15-2025 Miscellaneous Notes* Telephone Encounter - Holley [...] can refer to GI. documented in this encounterClinton [facility] Hospital05-15-2025 Telephone encounter Note * Telephone Encounter [...] if they worsen can refer to GI. [facility]05-14-2025 History of Present illness Narrative* Jesi [...] PATIENT PRESENTS WITH AN IMPLANTABLE OR ATTACHED LAUNCH STEWARD: No RADIOLOGY DEPARTMENT: Ultrasound PERIPHERAL IV DATA: Not applicable SIGNED BY: Jesi Kern RDMS September 30, 2024 2:12 PM documented in this encounterClinton Memorial Hospital05-14-2025 NoteHNO ID: [id number] Author: EJSI KERN RDMS Service: ? Author Type: Cotton Converter Type: Progress Notes Filed: 09/30/2024 14:12 Note [...] PATIENT PRESENTS WITH AN IMPLANTABLE OR ATTACHED LAUNCH STEWARD: No RADIOLOGY DEPARTMENT: Ultrasound PERIPHERAL IV DATA: Not applicable SIGNED BY: Jesi Kern RDMS September 30, 2024 2:12 [facility]05-13-2025 History of Present illness Narrative* Sangita Celestin APRN-FIRE HYDRANT OPERATOR - 09/29/2024 3:00 PM EDT Images from the original note were not included. Office Visit Note - 09/29/2024 Patient: ARVIND DOMÍNGUEZ CC: Chief Complaint Patient presents with New Patient Cc: Pt presents for hearing loss on left side. HPI: Mr. Arvind Domínguez is a 49 y.o. male presenting to the [facility] Department of Otolaryngology for evaluation of left [...] prn for hearing changes Kacy Celestin DNP, BOILER OPERATOR HELPER-FIRE HYDRANT OPERATOR [facility] Department of Otolaryngology Division of Otology [facility] [place] [address] [place] [address] Phone: [phone] documented in this encounterUniversity Hospitals St. [facility] History of Present illness Narrative* Brent Disla - 09/29/2024 12:00 PM EDT Images from the original note were not included. Auditory Brainstem Response Threshold Search Impressions: Tone burst threshold search ABR results obtained today suggest: Left: A ryafyfzl-sp-kfqebsqk hearing loss within but not necessarily limited [...] Recommendations: 1. Consult with Kacy Celestin DNP BOILER OPERATOR HELPER-FIRE HYDRANT OPERATOR 2. Further lvtk-dr-iqgxlq testing as needed re: hearing asymmetry, poorer [...] to stimulus intensities consistent with: Left: A hjjeouut-yl-yelozdyg hearing loss within but not necessarily limited to the range of 500-4000 Hz. Right: Normal to borderline-normal hearing within but not necessarily limited to the range of 500-2000 Hz See the test data showing estimated hearing threshold levels below and responses scanned under the Procedures and Media tabs in the Chart Review section of Checo Sandoval, [facility] Scalp Treatment Operator Brent Prakash, [facility] Department of Otolaryngology-Head and Neck Surgery [address] [facility] [place] [address] documented in this encounterOSU [facility] Telephone encounter Note* Telephone Encounter - Holley Bashir MA - 09/18/2024 12:01 PM EDT Chiki notified and verbalized understanding Holley Bashir MA [facility]05-02-2025 Miscellaneous Notes* Telephone Encounter - Holley [...] telling her to. Pleasecall and advise. Nina Velez, RN documented in this encounterClinton [facility] Hospital05-02-2025 Telephone encounter Note * Telephone Encounter - Niraj Andino APRN.CNP - 09/18/2024 11:46 AM EDT Do not change any medications. We will obtain US and go from there. [facility]05-02-2025 Telephone encounter Note* Telephone Encounter [...] telling her to. Pleasecall and advise. Nina Velez, RN [facility]05-01-2025 Telephone encounter Note* Telephone Encounter - Holley Bashir MA - 09/17/2024 6:38 PM EDT Chiki notified and verbalized understanding Holley Bashir MA [facility]05-01-2025 Miscellaneous Notes* Telephone Encounter - Holley Bashir MA - 09/17/2024 6:38 PM EDT Chiki notified and verbalized understanding Holley Bashir MA * Telephone Encounter - Niarj Andino APRN.CNP - 09/17/2024 9:17 AM EDT Please let patient's sister Chiki know his liver function is elevated and I recommend a RUQ US to check the structure of the Liver. documented in this encounterClinton [facility] Hospital05-01-2025 Telephone encounter Note * Telephone Encounter - Niraj Andino APRN.CNP - 09/17/2024 9:17 AM EDT Please let patient's sister Chiki know his liver function is elevated and I recommend a RUQ US to check the structure of the Liver. [facility]04-11-2025 Telephone encounter Note* Telephone Encounter - Radha Wall LPN - 08/28/2024 2:05 PM EDT Patient sister Chiki Gill returned call and went over results, notes from Shena Andino TOOLMAKER GRADE THREE with understanding. She will try to get him in today to get other labs done, if not it will be Saturday. [facility]04-11-20[facility] Miscellaneous Notes* Telephone Encounter - Radha Wall LPN - 08/28/2024 2:05 PM EDT Patient sister Chiki Gill returned call and went over results, notes from Shena Andino TOOLMAKER GRADE THREE with understanding. She will try to get him in today to get other labs done, if not it will be Saturday. * Telephone Encounter - Mary Gibson MA - 08/28/2024 12:10 PM EDT Called and left message on patients Chiki nñuez's voicemail to return call to the office and ask tospeak with a FM triage nurse. Mary Gibson MA * Telephone Encounter - Niraj Andino APRN.FIRE HYDRANT OPERATOR - 08/27/2024 12:38 PM EDT Etienne's alk [...] able. Tammi Sapp RN documented in this encounterClinton [facility] Hospital04-11-2025 Telephone encounter Note * Telephone Encounter - Mary Gibson MA - 08/28/2024 12:10 PM EDT Called and left message on patients Chiki nuñez's voicemail to return call to the office and ask tospeak with a FM triage nurse. Mary Gibson MA [facility]04-11-20[facility] Telephone encounter Note* Telephone Encounter - Tammi Sapp RN - 08/28/2024 9:07 AM EDT Faxed as requested to number below. Detailed message left on Chiki Gill's identified VM. Tammi Sapp RN [facility]04-11-2025 Miscellaneous Notes* Telephone Encounter - Tammi [...] able to get patient in to an senior training and development rep today at [facility] and is there now. 1) The senior training and development rep there is asking for provider to place and fax an order to them to cover today's exam, for an audiometric evaluation referral. Please fax to [phone]. [facility]ing [facility], if possible. 2)The senior training and development rep states pt should have a brain stem response test in the future which should be indicated in today's audiology OV note. 2) The senior training and development rep advises that provider also place an order for ENT consult for pt to have after his brain stem response test. Please call sister Chiki with an update. Tammi Sapp RN documented in this encounterClinton Memorial Hospital04-11-2025 Telephone encounter Note * Telephone Encounter - Niraj Andino APRN.CNP - 08/28/2024 8:43 AM EDT Order placed. [facility]04-10-20[facility] Telephone encounter Note* Telephone Encounter - Tammi Sapp RN - 08/27/2024 2:48 PM EDT Patient's sister/guardian Chiki Gill is calling to update Niraj Andino CNP that she was able to get patient in to an senior training and development rep today at [facility] and is there now. 1) The senior training and development rep there is asking for provider to place and fax an order to them to cover today's exam, for an audiometric evaluation referral. Please fax to [phone]. Requesting this by the endof the day, if possible. 2)The senior training and development rep states pt should have a brain stem response test in the future which should be indicated in today's audiology OV note. 2) The senior training and development rep advises that provider also place an order for ENT consult for pt to have after his brain stem response test. Please call sister Chiki with an update. Tammi Sapp RN [facility]04-10-2025 History of Present illness Narrative* Jory Anderson, Brent - 08/27/2024 1:30 PM EDT Images from [...] 1. Conductive hearing loss, unspecified laterality H90.2 Checo Hicks [facility] Doctor of Audiology Department of Otolaryngology-Head and Neck Surgery [address] [place] [address], [address] [place] [address] Checo Disla, [facility] Doctor of Audiology Department of Otolaryngology-Head and Neck Surgery [address] [place] [address], [address] [place] [address] documented in this encounterOSU [facility] Telephone encounter Note* Telephone Encounter - Niraj Andino APRN.FIRE HYDRANT OPERATOR - 08/27/2024 12:38 PM EDT Etienne's alk phos is slightly higher than previous but other levels are stable. I have ordered followup labs that can be completed at any time. [facility]04-10-[facility] Telephone encounter Note* Telephone Encounter - Tammi Sapp RN - 08/27/2024 12:10 PM EDT Patient's sister/guardian Chiki Gill is calling to ask if provider would advise on pt's recent hepatic function panel results, when able. Tammi Sapp RN [facility]04-09-2025 Evaluation note* Diagnosis Onset Date Resolution Status Admit Date H. pylori infection acute August 26, 2024 3:38pm Loose stools acute August 26, 2 025 3:38pm [facility] Work Phone: 1(647) 850-125404-09-2025 Evaluation note* Diagnosis Onset Date Resolution Status Admit Date H. pylori infection acute August 26, 2024 3:38pm Loose stools acute August 26, 2 025 3:38pm Constipation acute October 28, 2 025 3:32pm H. pylori infection acute October 28, 2024 3:32pm Loose stools acute October 28, 2 025 3:32pm [facility] Work Phone: 1(634) 833-248804-01-2025 Telephone encounter Note* Telephone Encounter - Tram Barajas RN - 08/18/2024 8:35 AM EDT Kerry from [employer] asking for clinical information regarding pt's Atorvastatin liquid prescription.Explained that pt does not swallow pills and has Autism, Mental disability and Schizophrenia. Griceldaill forward the clinical information on. Ref # is [id number] [facility]04-01-2025 Miscellaneous Notes* Telephone Encounter - Tram Barajas RN - 08/18/2024 8:35 AM EDT Kerry from [employer] asking for clinical information regarding pt's Atorvastatin liquid prescription.Explained that pt does not swallow pills and has Autism, Mental disability and Schizophrenia. [employer]eldaill forward the clinical information on. Ref # is [id number] * Telephone Encounter - Niraj Andino APRN.CNP [...] advise, Michelle Tijerina RN documented in this encounterClinton Memorial Hospital03-28-2025 Telephone encounter Note * Telephone Encounter - Niraj Andino APRN.CNP - 08/14/2024 1:54 PM EDT I have sent in a rx for liquid atorvastatin. [facility]03-28-2025 Telephone encounter Note* Telephone Encounter - [...] liquid or chewable form. Nina Velez RN [facility]03-28-2025 Telephone encounter Note* Telephone Encounter - Niraj Andino APRN.CNP - 08/14/2024 11:42 AM EDT Please let Chiki know Joangelas vit d is still low. Continue supplementation. [...] day.He will need to stay well hydrated. [facility]03-28-2025 Telephone encounter Note* Telephone Encounter - Michelle Tijerina RN - 08/14/2024 11:03 AM EDT Patient's sister Chiki calls and is asking about lab results. Please review and advise, Michelle Tijerina RN T [facility]03-25-2025 NoteHNO ID: [id number] Author: NIRAJ ANDINO APRN.FIRE HYDRANT OPERATOR Service: ? Author Type: Nurse Practitioner Type: [...] (FLONASE) 50 mcg/actuation nasal spray Use 1 Sabine in each nostril once daily. loratadine 10 [...] V77.91, V81.2, ICD10: Z13. (more content not included)...[facility] 08-11-2024 History of Present illness Narrative* Niraj Andino APRN.[facility] - 08/11/2024 3:56 PM EDT Chief Complaint [...] (FLONASE) 50 mcg/actuation nasal spray Use 1 Sabine in each nostril once daily. loratadine 10 [...] HEP B VACCINE, 2-DOSE (HEPLISAV-B) Niraj Andino APRN.FIRE HYDRANT OPERATOR documented in this encounterClinton Memorial Hospital02-25-2025 NoteHNO ID: [id number] Author: NIRAJ ANDINO APRN.FIRE HYDRANT OPERATOR Service: ? Author Type: Nurse Practitioner Type: [...] ORAL) Take by mouth. Gummies - Dr. Friend cetirizine HCl (ZYRTEC) 10 mg chewable tablet [...] (FLONASE) 50 mcg/actuation nasal spray Use 1 Sabine in each nostril once daily. loratadine 10 [...] weeks would recommend follow up. Niraj Andino APRN.[facility]02-25-2025 History of Present illness Narrative* Niraj Andino APRN.FIRE HYDRANT OPERATOR - 07/14/2024 3:13 PM EST Chief Complaint [...] (FLONASE) 50 mcg/actuation nasal spray Use 1 Sabine in each nostril once daily. loratadine 10 [...] weeks would recommend follow up. Niraj Andino APRN.FIRE HYDRANT OPERATOR documented in this encounterClinton [facility] Hospital02-18-2025 Telephone encounter Note * Telephone Encounter [...] ER for evaluation and possibly IV fluids. [facility]02-18-2025 Miscellaneous Notes* Telephone Encounter - Leann [...] and possibly IV fluids. documented in this encounterClinton Memorial Hospital02-12-2025 Telephone encounter Note * Telephone Encounter - Bethany Millan LPN - 07/01/2024 1:05 PM EST Phoned patient's sister/guardian and updated her with result. She voiced understanding. Bethany Millan LPN [facility]02-12-2025 Miscellaneous Notes* Telephone Encounter - Bethany Millan LPN - 07/01/2024 1:05 PM EST Phoned patient's sister/guardian and updated her with result. She voiced understanding. Bethany Millan LPN * Telephone Encounter - Bethany Millan LPN - 07/01/2024 1:04 PM EST ----- Message from Donna Aponte APRN.JOSHUA sent at 07/01/2024 12:45 PM EST ----- Chest xray is normal. Donna Aponte APRN.FIRE HYDRANT OPERATOR documented in this encounterClinton Memorial Hospital02-12-2025 Telephone encounter Note * Telephone Encounter - Bethany Millan LPN - 07/01/2024 1:04 PM EST ----- Message from Donna Aponte APRN.FIRE HYDRANT OPERATOR sent at 07/01/2024 12:45 PM EST ----- Chest xray is normal. Donna Aponte APRN.FIRE HYDRANT OPERATOR [facility]02-12-2025 History of Present illness Narrative* Kilo Chand RT(R) - 07/01/2024 12:20 PM EST Radiology Service [...] PATIENT PRESENTS WITH AN IMPLANTABLE OR ATTACHED LAUNCH STEWARD: No RADIOLOGY DEPARTMENT: General X-ray: Exam(s) Completed: Chest X-Ray PERIPHERAL IV DATA: Not applicable SIGNED BY: RT Hu(R) July 01, 2024 12:26 PM documented in this encounterClinton Memorial Hospital02-12-2025 NoteHNO ID: [id number] Author: KILO CHAND RT(Madeleine) Service: ? Author Type: Cotton Converter Type: Progress Notes Filed: 07/01/2024 12:40 Note [...] PATIENT PRESENTS WITH AN IMPLANTABLE OR ATTACHED LAUNCH STEWARD: No RADIOLOGY DEPARTMENT: General X-ray: Exam(s) Completed: Chest X-Ray PERIPHERAL IV DATA: Not applicable SIGNED BY: Kilo Chand RT(R) July 01, 2024 12:26 [facility]02-12-2025 IbwzPBFE-DSR-5 (AGENT OF COVID-19) RNA: Detected INFLUENZA A RNA: Not detected INFLUENZA B RNA: Not detected RESPIRATORY SYNCYTIAL VIRUS (RSV) RNA: Not detectedFulton County Health CenterComment on above:Performed By: #### [id number] ####[facility] LABCLIA [id number] [address]02-12-2025 NoteHNO ID: [id number] Author: DONNA APONTE APRN.FIRE HYDRANT OPERATOR Service: ? Author Type: Nurse Practitioner Type: [...] mouth three times a day. Dr Arlette KAOPECTATE, ATTAPULGITE, ORAL Take by mouth. Dr [...] (FLONASE) 50 mcg/actuation nasal spray Use 1 Sabine in each nostril once daily. loratadine 10 [...] to ER with red flag symptoms Donna Aponte, (more content not included)...[facility] 07-01-2024 History of Present illness Narrative* Donna Aponte APRN.[facility] - 07/01/2024 11:52 AM EST Chief Complaint [...] (FLONASE) 50 mcg/actuation nasal spray Use 1 Sabine in each nostril once daily. loratadine 10 [...] ER with red flag symptoms Donna Aponte APRN.FIRE HYDRANT OPERATOR Prescription instructions reviewed with patient as applicable. [...] Level: 3 - Low documented in this encounterClinton Memorial Hospital02-11-2025 Telephone encounter Note * Telephone Encounter - Holley Bashir MA - 06/30/2024 3:54 PM EST Left message notifying chiki that order was [facility] for her Holley BashirADRI [facility]02-11-2025 Miscellaneous Notes* Telephone Encounter - Holley Bashir MA - 06/30/2024 3:54 PM EST Left message notifying chiki that order was faxed over to [facility] for her Holley BashirADRI * Telephone Encounter - Levar Greer LPN - 06/30/2024 2:08 PM EST Chiki called and pt is having problems getting into the shower and she is requesting a shower chair. Please send rx to [facility]. Please call Chiki when this has been sent. Levar Greer LPN documented in this encounterClinton Memorial Hospital02-11-2025 Telephone encounter Note * Telephone Encounter - Levar Greer LPN - 06/30/2024 2:08 PM EST Chiki called and pt is having problems getting into the shower and she is requesting a shower chair. Please send rx to [facility]. Please call Chiki when this has been sent. Levar Greer LPN [facility]02-04-2025 Telephone encounter Note* Telephone Encounter - Emperatriz Tello OCCA - 06/23/2024 8:04 AM EST TC to patients guardianChiki, who verbalized understanding of providers message below. KAYLIEGH Uribe [facility]02-04-2025 Miscellaneous Notes* Telephone Encounter - Emperatriz Tello OCCA - 06/23/2024 8:04 AM EST TC to patients guardian, Chiki, who verbalized understanding of providers message below. KAYLEIGH Uribe * Telephone Encounter - Niraj Andino APRN.CNP - 06/23/2024 7:52 AM EST Please let patient know their covid/flu/rsv is negative. documented in this encounterClinton Memorial Hospital02-04-2025 Telephone encounter Note * Telephone Encounter - Niraj Andino APRN.CNP - 06/23/2024 7:52 AM EST Please let patient know their covid/flu/rsv is negative. [facility]02-03-2025 NoteHNO ID: [id number] Author: NIRAJ ANDINO APRN.CNP Service: ? Author [...] (FLONASE) 50 mcg/actuation nasal spray Use 1 Sabine in each nostril once daily. loratadine 10 [...] A/B AND RSV PCR, ROUTINE Niraj Andino APRN.[facility]02-03-2025 History of Present illness Narrative* Niraj Andino APRN.FIRE HYDRANT OPERATOR - 06/22/2024 4:19 PM EST Chief Complaint [...] (FLONASE) 50 mcg/actuation nasal spray Use 1 Sabine in each nostril once daily. loratadine 10 [...] A/B & RSV PCR, ROUTINE Niraj Andino APRN.FIRE HYDRANT OPERATOR documented in this encounterClinton Memorial Hospital01-30-2025 [facility] Medical Records Department [address] [place] [id number] History Physical Exam 06/18/24 0816 MR#: [id number] Acct: [id number] Name: ARVIND DOMÍNGUEZ Rep #: [id number] : 1975 49 From: Osman Chong DO PCP: SEBASTIÁN PatelC Status:[facility] Location: [place] [address] HPI - General General Date of Admission: [...] does not take anything for the constipation. [facility] Medical History Rash Low iron Non-smoker [...] this as she m (more content not included)...[facility]12-03-2024 NoteHNO ID: [id number] Author: NIRAJ ANDINO APRN.FIRE HYDRANT OPERATOR Service: ? Author Type: Nurse Practitioner Type: [...] (FLONASE) 50 mcg/actuation nasal spray Use 1 Sabine in each nostril once daily. loratadine 10 [...] UNIT-TRIMETHOPRIM 1 MG/ML EYE DROPS Niraj Andino APRN.[facility]HUAFulton County Health Center12-03-2024 History of Present illness Narrative* Niraj Andino APRN.FIRE HYDRANT OPERATOR - 04/21/2024 11:11 AM EST Chief Complaint [...] (FLONASE) 50 mcg/actuation nasal spray Use 1 Sabine in each nostril once daily. loratadine 10 [...] UNIT-TRIMETHOPRIM 1 MG/ML EYE DROPS Niraj Andino APRN.FIRE HYDRANT OPERATOR documented [facility] encounterCl[facility] Telephone encounter Note * Telephone Encounter - Mary Gibson MA - 04/03/2024 3:23 PM EST Call to Chiki and notified her of results and recommendations below. She verbalized understanding. Mary Gibson MA [facility]11-15-2024 Miscellaneous Notes* Telephone Encounter - Mary [...] in a new prescription. documented in this encounterCl[facility]11-15-2024 Telephone encounter Note * Telephone Encounter - Niraj Andino APRN.CNP - 04/03/2024 1:30 PM EST Please let patient's sister know his vitamin d has improved but is still low, continue supplementation. Patient also has high eosinophils which correlates with allergies. Would recommend switching allergy medication. I have sent in a new prescription. [facility]11-14-2024 Telephone encounter Note* Telephone Encounter - Mary Gibson MA - 04/02/2024 4:07 PM EST Called and spoke with Chiki. Notified her of results and to update office if not improved by Saturday. She verbalized understanding. Mary Gibson MA [facility]11-14-2024 Miscellaneous Notes* Telephone Encounter - Mary [...] not better by Saturday. documented in this encounterCl[facility]11-14-2024 Telephone encounter Note * Telephone Encounter - Niraj Andino APRN.CNP - 04/02/2024 3:35 PM EST Please let patient know their xray is normal. Please let me know if he is not better by Saturday. [facility]11-14-2024 History of Present illness Narrative* Klaus [...] PATIENT PRESENTS WITH AN IMPLANTABLE OR ATTACHED LAUNCH STEWARD: No RADIOLOGY DEPARTMENT: General X-ray: Exam(s) Completed: Chest X-Ray PERIPHERAL IV DATA: Not applicable SIGNED BY: RT Caterina(Madeleine) April 02, 2024 3:08 PM documented in this encounterClinton [facility] Hospital11-14-2024 NoteHNO ID: [id number] Author: KLAUS LAUGHLIN RT(R) Service: Radiology Author [...] PATIENT PRESENTS WITH AN IMPLANTABLE OR ATTACHED LAUNCH STEWARD: No RADIOLOGY DEPARTMENT: General X-ray: Exam(s) Completed: Chest X-Ray PERIPHERAL IV DATA: Not applicable SIGNED BY: RT Caterina(Madeleine) April 02, 2024 3:08 [facility]11-14-2024 NoteHNO ID: [id number] Author: NIRAJ ANDINO APRN.FIRE HYDRANT OPERATOR Service: ? Author Type: Nurse Practitioner Type: [...] (FLONASE) 50 mcg/actuation nasal spray Use 1 Sabine in each nostril once daily. loratadine 10 [...] - VITAMIN D 25 HYDROXY [facility]aj [facility] History of Present illness Narrative* Niraj Andino APRN.FIRE HYDRANT OPERATOR - 04/02/2024 2:52 PM EST Chief Complaint [...] (FLONASE) 50 mcg/actuation nasal spray Use 1 Sabine in each nostril once daily. loratadine 10 [...] - VITAMIN D 25 HYDROXY Niraj Andino APRN.CNP documented in this encounterClinton [facility]11-05-2024 NoteHNO ID: [id number] Author: CHELITA SMART MA Service: ? Author Type: Manager Media Relations Type: Progress Notes Filed: 03/24/2024 15:48 Note Text: POPULATION HEALTH NAVIGATION OUTREACH Action/FYI LVM MYCHART MESSAGE SENT ANNUAL MEDICARE WELLNESS COLONOSCOPY Reason for Outreach Care Gap/HCC or Scheduling Wellness Visits Care Gaps due: Medicare Annual Wellness Visit Colorectal Cancer Screening Patient Contacted: Unable or unnecessary to reach patient: Left message AppPowerGrouphart message sent Navigation Signature: Chelita Smart MA March 24, 2024 11:46 [facility]11-05-2024 History of Present illness Narrative* Chelita Smart MA - 03/24/2024 11:46 AM EST POPULATION HEALTH NAVIGATION OUTREACH Action/YAMILI LVLeann MYCHART MESSAGE SENT ANNUAL MEDICARE WELLNESS COLONOSCOPY Reason for Outreach Care Gap/HCC or Scheduling Wellness Visits Care Gaps due: Medicare Annual Wellness Visit Colorectal Cancer Screening Patient Contacted: Unable or unnecessary to reach patient: Left message Bitbrains message sent Navigation Signature: Chelita Smart MA March 24, 2024 11:46 AM documented in this encounterClinton [facility] Hospital11-05-2024 NotePatient Outreach (NETNAV) ARVIND DOMÍNGUEZ ([id number]) 1975 M GRD Date Time Provider Department 03/24/24 CHELITA SMART During your visit today, we recorded the following information about you: Chelita Smart MA 03/24/2024 3:48 PM Signed POPULATION HEALTH NAVIGATION OUTREACH Action/FYI LVM Gaia HerbsHART MESSAGE SENT ANNUAL MEDICARE WELLNESS COLONOSCOPY Reason for Outreach Care Gap/HCC or Scheduling Wellness Visits Care Gaps due: Medicare Annual Wellness Visit Colorectal Cancer Screening Patient Contacted: Unable or unnecessary to reach patient: Left message AppPowerGrouphart message sent Navigation Signature: Chelita Smart MA March 24, 2024 11:46 AM Allergies As of Date: 03/24/2024 (No Known Allergies) Date Reviewed: 03/13/2024 Reviewed by: Holley Bashir MA - Fully Assessed Reason for Visit: Population Health Navigation Outreach [3910] Cmt: [facility] PABLO MARTIN PCSA Prescriptions as [...] (FLONASE) 50 mcg/actuation nasal spray Use 1 Sabine in each nostril once daily. - loratadine 10 mg dissolvable tablet Take 10 mg by mouth once daily. - OLANZapine orally disintegrating (ZYPREXA ZYDIS) 5 mg disintegrating tablet Take 5 mg by mouth daily at bedtime. - Nutritional Supplements (ENSURE PUDDING) pudg Take 113 g by mouth twice daily. Problem List As Of Date: 03/24/2024 (None) Encounter Status:Closed by CHELITA SMART on 03/24/24[facility]10[facility] Telephone encounter Note* Telephone Encounter - Niraj Andino APRN.CNP - 03/17/2024 12:16 PM EDT Noted. [facility]10-29-2024 Miscellaneous Notes* Telephone Encounter - Niraj [...] medication. Michelle Tijerina RN documented in this encounterClinton [facility]10-29-2024 Telephone encounter Note * Telephone Encounter [...] off of another medication. Michelle Tijerina RN [facility]10-28-2024 Telephone encounter Note* Telephone Encounter - Candace Rascon LPN - 03/16/2024 1:53 PM EDT Patient scheduled for nurse visit 03/31/24 to receive Hepatitis B vaccine. Please place order at this time. Candace Rascon LPN [facility]10-28-2024 Miscellaneous Notes* Telephone Encounter - Candace Rascon LPN - 03/16/2024 1:53 PM EDT Patient scheduled for nurse visit 03/31/24 to receive Hepatitis B vaccine. Please place order at this time. Candace Rascon LPN documented in this encounterCl[facility] Hospital10-25-2024 NoteHNO ID: [id number] Author: NIRAJ ANDINO APRN.[facility] Service: ? Author Type: Nurse Practitioner Type: [...] (FLONASE) 50 mcg/actuation nasal spray Use 1 Sabine in each nostril once daily. loratadine 10 [...] guardianship re-evaluation with the court. N[facility]aj Andino APRN.[facility]10-25-[facility] History of Present illness Narrative* Niraj Andino APRN.FIRE HYDRANT OPERATOR - 03/13/2024 2:30 PM EDT Chief Complaint [...] (FLONASE) 50 mcg/actuation nasal spray Use 1 Sabine in each nostril once daily. loratadine 10 [...] guardianship re-evaluation with the court. Niraj Andino APRN.JOSHUA documented in this encounterClinton [facility] Hospital10-25-2024 Telephone encounter Note * Telephone Encounter - Nina Velez RN - 03/13/2024 12:41 PM EDT Pts sister called in and reports Pt was able to get in to see Dr Friend's [employer] [place] on 04/10/24. Shestates the DD board [...] Niraj Andino NP today at 220 pm. [facility]10-25-2024 Miscellaneous Notes* Telephone Encounter - Nina Velez RN - 03/13/2024 12:41 PM EDT Pts sister called in and reports Pt was able to get in to see Dr Arlette's [employer] [place] on 04/10/24. Shestates the DD board [...] ache. Pt was scheduled with Niraj Andino [employer] today at 220 pm. documented in this encounterClinton [facility] Hospital10-15-2024 NoteHNO ID: [id number] Author: CANDACE RASCON LPN Service: ? Author Type: LICENSED NURSE Type: Progress Notes Filed: 03/03/2024 16:14 Note Text: Patient presents for Hep B, TDAP, and Flu vaccines. Denies any problems at this time. Tolerated injections well. [facility] History of Present illness Narrative* Candace Rascon LPN - 03/03/2024 4:09 PM EDT Patient presents for Hep B, TDAP, and Flu vaccines. Denies any problems at this time. Tolerated injections well. Candace Rascon LPN documented in this encounterCl[facility] Hospital10-10-2024 Telephone encounter Note * Telephone Encounter - Candace Rascon LPN - 02/27/2024 8:21 AM EDT Patient scheduled for nurse visit 03/03/24 to receive TDAP vaccine. Please place order at this time. Candace Rascon LPN [facility]10-10-2024 Miscellaneous Notes* Telephone Encounter - Candace Rascon LPN - 02/27/2024 8:21 AM EDT Patient scheduled for nurse visit 03/03/24 to receive TDAP vaccine. Please place order at this time. Candace Rascon LPN documented in this encounterCl[facility] Hospital10-09-2024 Note* Addendum Note - Radha Wall LPN - 02/26/2024 10:01 AM EDTAddended by: RADHA WALL on: 02/26/2024 10:01 AM Modules accepted: Orders [facility]10-09-2024 Miscellaneous Notes* Addendum Note - Radha [...] B series and Tdap. Nina Velez RN * Telephone Encounter - Niraj Andino APRN.CNP - 02/24/2024 5:19 PM EDT Please let Chiki know Etienne's titers show immunity to everything except hepatitis B. I would recommendcompleting hepatitis b series as well as updating Dtap since we do not know when his last one was. documented in this encounterCl[facility] Hospital10-09-2024 Telephone encounter Note * Telephone Encounter - Radha Wall LPN - 02/26/2024 9:56 AM EDT Chiki Gill returned call and went over notes below, scheduled nurse visit for 03/03 at 345 pm per her request. Pending orders, not sure which D-tap to pend. [facility]10-09-2024 Telephone encounter Note* Telephone Encounter - Tammi Diane - 02/26/2024 8:[address] attempt left message to schedule nurse visit. [facility]10-08-2024 Telephone encounter Note* Telephone Encounter - Nina Velez RN - 02/25/2024 8:57 AM EDT Called and left a detailed voicemail notifying patient's guardian Chiki of providers message. Clinic phone number was left in case she had any questions and to get a hold of scheduling to set up Hep B series and Tdap. Nina Velez RN [facility]10-07-2024 Telephone encounter Note* Telephone Encounter - Niraj Andino APRN.CNP - 02/24/2024 5:19 PM EDT Please let Chiki know Etienne's titers show immunity to everything except hepatitis B. I would recommendcompleting hepatitis b series as well as updating Dtap since we do not know when his last one was. [facility]10-04-2024 Telephone encounter Note* Telephone Encounter - Patricia Chicas RN - 02/21/2024 8:59 AM EDT Sister (Chiki) calls and notified of results and providers instructions. Chiki verbalizes understanding. Chiki asking for liquid amoxicillin to be sent in as patient is not able to swallow pills. Pended for review. Patricia Chicas RN [facility]10-04-2024 Miscellaneous Notes* Telephone Encounter - Patricia [...] in antibiotics for strep. documented in this encounterCl[facility] Hospital10-04-2024 Telephone encounter Note * Telephone Encounter - Niraj Andino APRN.CNP - 02/21/2024 8:53 AM EDT Please let patient know his covid/flu/rsv is negative. I have sent in antibiotics for strep. [facility]10-03-2024 History of Present illness Narrative* Niraj Andino APRN.CNP - 02/20/2024 3:27 PM EDT Chief Complaint [...] (FLONASE) 50 mcg/actuation nasal spray Use 1 Sabine in each nostril once daily. loratadine 10 [...] Influenza Vaccine(1) due on 01/19/2024 Covid-19 Vaccine( season) Never done Diabetes Screening due on [...] ICD10: Z78.9 - VARICELLA ZOSTER IGG 8. Umokxfsrvf-lhbcbugzm-fjdgkks (DPT) vaccination status unknown - ICD9: V49.89, ICD10: Z78.9 - TETANUS ANTIBODY IGG - DIPHTHERIA IGG ABS Niraj Andino APRN.FIRE HYDRANT OPERATOR documented in this encounterCl[facility] Hospital08-06-2024 Telephone encounter Note * Telephone Encounter - Holley Bashir MA - 12/24/2023 8:56 AM EDT Chiki notified and verbalized understanding Holley Bashir MA [facility]08-06-2024 Miscellaneous Notes* Telephone Encounter - Holley Bashir MA - 12/24/2023 8:56 AM EDT Chiki notified and verbalized understanding Holley Bashir MA * Telephone Encounter - Niraj Andino APRN.CNP - 12/24/2023 8:08 AM EDT Please let Chiki know his xray does not show any abnormalities of the skull. documented in this encounterClinton [facility] Hospital08-06-2024 Telephone encounter Note * Telephone Encounter - Niraj Andino APRN.CNP - 12/24/2023 8:08 AM EDT Please let Chiki know his xray does not show any abnormalities of the skull. [facility]08-05-2024 NoteIMPRESSION: Limited evaluation due to radiography and superimposed structures/artifacts. Indeterminant increased density overlying the right maxillary sinus. No acute displaced fracture or destructive osseous lesion is visualized given exam limitations, however CT is suggested for further evaluation. Cervical spine degenerative changes. Panel Fitter: MELINDA Transcribe Date/Time: Dec 23 2023 7:04P Dictated by : JASON FONSECA MD This examination was interpreted and the report reviewed and electronically signed by: JASON FONSECA MD on Dec 23 2023 7:05PM [facility] [id number] History of Present illness Narrative* Kilo Chand, RT(R) - 12/19/2023 3:40 PM EDT Radiology [...] PATIENT PRESENTS WITH AN IMPLANTABLE OR ATTACHED LAUNCH STEWARD: No RADIOLOGY DEPARTMENT: General X-ray: Exam(s) Completed: Skull X-Ray PERIPHERAL IV DATA: Not applicable SIGNED BY: RT Hu(R) December 19, 2023 3:45 PM documented in this encounterClinton [facility] Hospital08-01-2024 Note* Addendum Note - Niraj Andino APRN.CNP - 12/19/2023 3:28 PM EDTAddended by: NIRAJ ANDINO on: 12/19/2023 03:28 PM Modules accepted: Orders [facility]08-01-2024 Miscellaneous Notes* Addendum Note - Niraj Andino APRN.CNP - 12/19/2023 3:28 PM EDTAddended by: NIRAJ ANDINO on: 12/19/2023 03:28 PM Modules accepted: Orders documented in this encounterCl[facility] Hospital08-01-2024 History of Present illness Narrative* Niraj [...] (FLONASE) 50 mcg/actuation nasal spray Use 1 Sabine in each nostril once daily. loratadine 10 [...] Covid-19 Vaccine( - 2022- season) Never done Influenza Vaccine(1) due on [...] recently started on new medication. Niraj Andino APRN.FIRE HYDRANT OPERATOR documented in this encounterCl[facility] Hospital07-29-2024 Telephone encounter Note * Telephone Encounter - Tram Barajas RN - 12/16/2023 8:25 AM EDT Opened in error-see other phone note of 12/12 [facility]07-29-2024 Miscellaneous Notes* Telephone Encounter - Tram Barajas RN - 12/16/2023 8:25 AM EDT Opened in error-see other phone note of 12/12 documented in this encounterCl[facility] Hospital07-26-2024 Telephone encounter Note * Telephone Encounter [...] he is non verbal. Chiki verbalizes understanding. [facility]07-26-2024 Miscellaneous Notes* Telephone Encounter - Tram [...] verbal. Chiki verbalizes understanding. documented in this encounterCl[facility] Hospital07-12-2024 Miscellaneous Notes* Telephone Encounter - Holley Bashir MA - 11/29/2023 11:46 AM EDT Chiki notified and verbalized understanding Holley Bashir MA * Telephone Encounter - Niraj Andino APRN.CNP - 11/29/2023 11:39 AM EDT Please let chiki know I have sent in liquid and apologize for the delay. * Telephone Encounter - Micehlle Tijerina RN - 11/29/2023 8:32 AM EDT Patient sister calls and states that patient was prescribed amoxicillin yesterday for ear infection. Chiki reports that this was sent in pill form and patient cannot take pills. Chiki asking if this can be changed to liquid form? Please review and advise, Michelle Tijerina RN documented in this encounterCl[facility] Hospital07-12-2024 Telephone encounter Note * Telephone Encounter - Holley Bashir MA - 11/29/2023 11:46 AM EDT Chiki notified and verbalized understanding Holley Bashir MA [facility]07-12-2024 Telephone encounter Note* Telephone Encounter - Niraj Andino APRN.CNP - 11/29/2023 11:39 AM EDT Please let chiki know I have sent in liquid and apologize for the delay. [facility]07-12-2024 Telephone encounter Note* Telephone Encounter - Michelle Tijerina RN - 11/29/2023 8:32 AM EDT Patient sister calls and states that patient was prescribed amoxicillin yesterday for ear infection. Chiki reports that this was sent in pill form and patient cannot take pills. Chiki asking if this can be changed to liquid form? Please review and advise, Michelle Tijerina RN [facility]07-11-2024 History of Present illness Narrative* Niraj Andino APRN.JOSHUA - 11/28/2023 4:28 PM EDT Chief Complaint [...] (FLONASE) 50 mcg/actuation nasal spray Use 1 Sabine in each nostril once daily. loratadine 10 [...] further testing. Chiki verbalized understanding. Niraj Andino APRN.FIRE HYDRANT OPERATOR documented in this encounterClinton [facility] Hospital07-03-2024 Telephone encounter Note * Telephone Encounter - Brain Babcock LPN - 11/20/2023 1:36 PM EDT Chiki has been advised of Dr Bay's instructions. She verbalizes understanding. She advises that she is in the hospital and her and daughters are helping to take care of pt. Brian Babcock LPN [facility]07-03-2024 Miscellaneous Notes* Telephone Encounter - Brain [...] Pt not showing any symptoms. Please advise Amy. Levar Greer LPN documented in this encounterClinton [facility] Hospital07-03-2024 Telephone encounter Note * Telephone Encounter - Elder Bay MD - 11/20/2023 12:34 PM EDT I would only start an antibiotic if he starts to develop a moist sounding cough and/or fever. Just monitor for now. [facility] Work Phone: 1(688) 796-943307-03-2024 Telephone encounter Note* Telephone Encounter - Levar [...] symptoms. Please advise Chiki. Levar Greer LPN [facility]05-13-2024 Discharge summary Author Kong Maddox [facility] September 30, 2023 1:04am Note Date/Time September 29, 2023 10:12 pm [facility] Medical Records Department [address] [place] [address] Emergency Department Summary 09/29/23 MR#: [id number] Acct: [id number] Name: ARVIND DOMÍNGUEZ Rep #:[id number] : 1975 48 From: Kong Maddox MD PCP: Niraj Andino, [employer]-C Status:REG ER Location: ED HPI HPI - [...] the area. No recent antibiotics for anything. [facility] Medical History Autism GERD (gastroesophageal reflux disease) [...] % (Auto) 52.8 Lymph % (Auto) 21.9 Morrison % (Auto) 16.5 H Eos % (Auto) [...] Niraj Andino NP-C [Primary Care Provider] - 3-5 Days if not improving Disposition Disposition: Home, Self Care What to do if you have Problems For any increased pain, shortness of breath, bleeding, nausea or vomiting, chestpain, or any unexpected problems, contact your Primary Care Provider. Call [facility] ([phone]) or report to the closest Emergency Room. Call 911 if necessary. 09/30/23 0104 <Electronically signed by Kong Maddox MD> Cosigner Signature (if applicable): CC: EB Andino ~ Signed [facility] Work Phone: 1(421) 673-415305-09-2024 Telephone encounter Note* Telephone Encounter - Tram [...] swelling 7. : n/a Protocols used: Leg Dbkd-QDCAT-KB [facility]05-09-2024 Miscellaneous Notes* Telephone Encounter - Tram [...] swelling 7. : n/a Protocols used: Leg Geps-RJYQT-GB documented in this encounterClinton [facility] Hospital05-03-2024 Telephone encounter Note * Telephone Encounter - Holley Bashir MA - 09/20/2023 2:20 PM EDT We have not received anything at this time Holley Bashir MA [facility]05-03-2024 Miscellaneous Notes* Telephone Encounter - Holley Bashir MA - 09/20/2023 2:20 PM EDT We have not received anything at this time Holley Bashir MA * Telephone Encounter - Tram Barajas RN - 09/20/2023 1:39 PM EDT Checking to see if any results of testing came through? * Telephone Encounter - Tram Barajas RN - 09/16/2023 12:32 PM EDT Homero's sister Chiki calling as she states Niraj Andino referred Arvind to [facility] [employer] [facility] [employer] to be tested for autism. States she feels he was tested around 07/26/23. No report has been received and she has called to get it several times and they keep telling her that it is not ready. Chiki is wondering ifNiraj's office could call and check on the report. The provider who did the testing was Dr. Millie Dotson. Phone number is [phone] Called and spoke with Leanne at [facility] for [employer]. She states the testing was done on 08/16/23. She is unable to see the report so she reached out to Dr. Dotson and expects a response back from him. She was given Niraj Andino's office fax #to send to us and asked to call us when report is completed and faxed. documented in this encounterClinton [facility] Hospital05-03-2024 Telephone encounter Note * Telephone Encounter - Tram Barajas RN - 09/20/2023 1:39 PM EDT Checking to see if any results of testing came through? [facility]04-29-2024 Telephone encounter Note* Telephone Encounter - Tram Barajas RN - 09/16/2023 12:32 PM EDT Homero's sister Chiki calling as she states Niraj Andino referred Arvind to [facility] [employer] [facility] [employer] to be tested for autism. States she feels he was tested around 07/26/23. No report has been received and she has called to get it several times and they keep telling her that it is not ready. Chiki is wondering ifNiraj's office could call and check on the report. The provider who did the testing was Dr. Millie Dotson. Phone number is [phone] Called and spoke with Leanne at [facility]. She states the testing was done on 08/16/23. She is unable to see the report so she reached out to Dr. Dotson and expects a response back from him. She was given Niraj Andino's office fax #to send to us and asked to call us when report is completed and faxed. [facility]04-15-20[facility] Instructions* Patient Instructions* Georgia Milton APRN.CNS - 09/02/2023 3:32 PM EDT 1) Bactrim DS- 20 ml 2 x day for 10 days 2) Given with a full glass of water 3) Follow up in 4months documented in this encounterClinton Memorial Hospital04-15-2024 History of Present illness Narrative* Georgia [...] (FLONASE) 50 mcg/actuation nasal spray Use 1 Sabine in each nostril once daily. loratadine 10 [...] as needed for worsening/no improvement. Georgia Milton APRN.ROLLER SKATE REPAIRER The patient indicates understanding of these issues and agrees with the plan. documented in this encounterClinton [facility] Hospital03-18-2024 Miscellaneous Notes* Telephone Encounter - Patricia Chicas RN - 08/05/2023 4:19 PM EDT Sister (Chiki) calls to report that she is having trouble getting the iron in liquid form. Pharmacistat [facility] told her he could get it for her but has to have a prescription. Pended per request. Please review. Patricia Chicas RN documented in this encounterClinton [facility] Hospital03-12-2024 Miscellaneous Notes* Telephone Encounter - Patricia [...] Telephone Encounter - Niraj Andino APRN.CNP - 07/30/2023 8:39 AM EDT These are [...] message. Debbie Goel LPN documented in this encounterClinton [facility] Hospital03-08-2024 Miscellaneous Notes* Telephone Encounter - Leann Cruz RN - 07/26/2023 4:46 PM EST Chiki returned call and given provider's message below with verbalized understanding. * Telephone Encounter - Holley Bashir MA - 07/26/2023 2:24 PM EST Left message for patient to return call to office Holely Bashir MA * Telephone Encounter - Niraj [...] vitamin d henao pplementation. documented in this encounterClinton [facility] Hospital03-07-2024 History of Present illness Narrative* Niraj [...] (FLONASE) 50 mcg/actuation nasal spray Use 1 Sabine in each nostril once daily. loratadine 10 [...] Z13.6 - LIPID PANEL, NONFASTING Niraj Andino APRN.FIRE HYDRANT OPERATOR documented in this encounterCl[facility]24 Miscellaneous Notes* Telephone Encounter - Radha Wall LPN - 06/27/2023 12:59 PM EST Patient sister Chiki Gill returned call and went over results, notes from Niraj Andino TOOLMAKER GRADE THREE with understanding. * Telephone Encounter - Holley Bashir Cma - 06/27/2023 10:10 AM EST Left message for patient to return call to office Holley Bashir Cma * Telephone Encounter - Niraj Andino APRN.CNP - 06/27/2023 8:21 AM EST Please let carito know he tested positive for influenza B. This explains his lethargy and decreased appetite. documented in this encounterCl[facility]02-07-2024 Miscellaneous Notes* Telephone Encounter - Levar Greer LPN - 06/26/2023 10:31 AM EST Closing encounter. Levar Greer LPN * Telephone Encounter - Radha Wall LPN - 06/26/2023 10:06 AM EST Patient sister Chiki Gill returned call and went over results from Niraj Andino TOOLMAKER GRADE THREE with understanding. * Telephone Encounter - Nina Velez RN - 06/25/2023 4:29 PM EST Called Pts sister and no answer. Pt did not have voicemail set up. Will need to call back. Nina Velez RN * Telephone Encounter - Niraj Andino APRN.CNP - 06/25/2023 3:05 PM EST Please let patient know their xray is normal. documented in this encounterCl[facility]02-06-2024 History of Present illness Narrative* Klaus Laughlin RT(R) - 06/25/2023 11:00 AM EST Radiology [...] PATIENT PRESENTS WITH AN IMPLANTABLE OR ATTACHED LAUNCH STEWARD: No RADIOLOGY DEPARTMENT: General X-ray: Exam(s) Completed: Abdomen X-Ray: Abdomen PERIPHERAL IV DATA: Not applicable SIGNED BY: RT Caterina(R) June 25, 2023 10:53 AM documented in this encounterClinton [facility] Hospital12-19-2023 Miscellaneous Notes* Telephone Encounter - Michelle Tijerina RN - 05/07/2023 11:20 AM EST Chiki calls back and phone number given. Michelle Tijerina RN * Telephone Encounter - Flavia Henson MA - 05/07/2023 10:41 AM EST Chiki notified. She is currently driving and will call back to take phone number for [employer] for [employer]. . Flavia Henson MA * Telephone Encounter - Niraj Andino APRN.CNP - 05/07/2023 9:47 AM EST Please let chiki know I spoke to someone at [employer] for [facility] in [place]. I have given them Arvind's information. They are currently booking out til july 2023. Their phone number is [phone] and they are expecting your call to [...] RN * Telephone Encounter - Niraj Andino APRN.FIRE HYDRANT OPERATOR - 05/06/2023 5:19 PM EST Please let chiki know I am still working on autism referral. I have calls out to multiple facilities.[facility] has a 3 year waitlist for adult evaluation. * Telephone Encounter - Michelle Tijerina RN - 05/06/2023 4:01 PM EST Patient's sister Chiki calls and is asking if provider got the chance to check with Autism Doctor or ENT about patient's hearing issues. Please review and advise, Michelle Tijerina RN documented in this encounterClinton [facility] Hospital12-06-2023 Miscellaneous Notes* Telephone Encounter - Michelle [...] states that she had talked to [facility] about boost. Chiki states thatshe was told that if provider sent a prescription there, [facility] would try to get Boost in for patient. Please review and advise, Michelle Tijerina RN documented in this encounterClinton [facility] Hospital12-01-2023 History of Present illness Narrative* Niraj Andino APRN.FIRE HYDRANT OPERATOR - 04/19/2023 8:56 AM EST Chief Complaint [...] (FLONASE) 50 mcg/actuation nasal spray Use 1 Sabine in each nostril once daily. loratadine 10 [...] with therapies and treatments available. Niraj Andino APRN.FIRE HYDRANT OPERATOR documented in this encounterClinton [facility] Hospital10-12-2023 History of Present illness Narrative* Niraj Andino APRN.FIRE HYDRANT OPERATOR - 02/28/2023 5:19 PM EDT Chief Complaint [...] (FLONASE) 50 mcg/actuation nasal spray Use 1 Sabine in each nostril once daily. food supplemt, [...] TABLET Niraj Andino APRN.CNP documented in this encounterClinton [facility] Hospital10-12-2023 Miscellaneous Notes* Telephone Encounter - Niraj Andino APRN.CNP - 02/28/2023 8:05 AM EDT Ordered, please fax to number below. * Telephone Encounter - Merna Graves LPN - 02/25/2023 2:59 PM EDT Chiki calling and would like Rx for Boost high Calorie faxed to [facility] with Chart note and letter of medical necessity. Fax to [phone] documented in this encounterClinton [facility] Hospital09-18-2023 Miscellaneous Notes* Telephone Encounter - Nina Velez RN - 02/04/2023 10:24 AM EDT Pts sister called in and wanted to give us the phone numbers of the people working with the Pt and trying to help him find a new psychiatrist for medication in [facility]. They are [facility] (Donna Patricia) [phone] ext [phone] and [facility] (Miriam Wolf) [phone]. She states she is trying to keep [...] at his next appointment. documented in this encounterClinton [facility] Hospital08-25-2023 Miscellaneous Notes* Telephone Encounter - Nina [...] : N/A 10. TRAVEL: Denies Protocols used: [id number] documented in this encounterClinton [facility] Hospital08-14-2023 Miscellaneous Notes* Telephone Encounter - Tram [...] you. Tram Barajas RN documented in this encounterClinton [facility] Hospital08-11-2023 Miscellaneous Notes* Telephone Encounter - Michelle [...] of Last Labs: 12/25/2022 documented in this encounterClinton [facility] Hospital08-10-2023 Miscellaneous Notes* Telephone Encounter - Holley Bashir Cma - 12/27/2022 10:13 AM EDT Patients sister Chiki notified and verbalized understanding Holley Bashir Cma * Telephone Encounter - Niraj Andino APRN.CNP - 12/27/2022 9:56 AM EDT Please let patient know his labs are within normal. documented in this encounterClinton [facility] Hospital08-09-2023 Miscellaneous Notes* Telephone Encounter - Lorrie Monk Ma - 12/26/2022 6:10 PM EDT Images from the original note were not included. Approved and sister was notified * Telephone Encounter - Lorrie Monk Ma - 12/26/2022 2:51 PM EDT Received fax from [employer] advising cannot be processed as the member has a COB. Please Bill to primary payer. Called laura who advised that patient has medicare that is active can not see active medicaid through [employer] portal. Called neftali who advised PA needed and will send fax Completed through [email or web address] [place]inson: [id number] * Telephone Encounter - Lorrie Monk Ma - 12/25/2022 3:41 PM EDT Provider requested PA completed for pantoprazole packets Prior Authorization has been completed online at [employer] for Pantoprazole packets, will await response. [id number] Please keep encounter open until final decision has been received and documented from insurance company. Lorrie Monk MA documented in this encounterClinton [facility] Hospital08-08-2023 History of Present illness Narrative* Niraj Andino APRN.FIRE HYDRANT OPERATOR - 12/25/2022 3:24 PM EDT Chief Complaint [...] (FLONASE) 50 mcg/actuation nasal spray Use 1 Sabine in each nostril once daily. loratadine 10 [...] R79.89 - COMP METABOLIC PANEL Niraj Andino APRN.JOSHUA documented in this encounterClinton [facility] Hospital08-06-2023 Hospital Discharge instructions Additional Instructions His blood work showed high liver enzymes. His CT scan looked normal and there is no evidence of gallbladder infection. 1 possible side effect of olanzapine as elevated liver enzymes but there are many other possible causes so he needs to see his primary care doctor this week for reevaluation.[facility] Work Phone: 1(211) 871-362808-06-2023 History of Present illness Narrative* Kailee Pettit [...] abdominal pain. She will take him to [facility] ED. documented in this encounterClinton [facility] Hospital07-20-2023 Discharge summary Author Mookie Guo [facility] December 06, 2022 2:33pm Note Date/Time December 06, 2022 1:27 pm [facility] System Medical Records Department [address] [place] [id number] Emergency Department Summary 12/06/22 MR#: [id number] Acct: [id number] Name: ARVIND DOMÍNGUEZ Rep #:[id number] : 1975 47 From: Mookie Guo MD PCP: EB Patel Status:REG ER Location: [...] Prior similar symptoms: No Recent Illness/Hospitalization: No [facility] Medical History (Updated 12/06/22 @ 14:31 by [...] % (Auto) Cancelled Lymph % (Auto) Cancelled Morrison % (Auto) Cancelled Eos % (Auto) Cancelled [...] Drop Cells Cancelled Ovalocytes Cancelled Stomatocytes Cancelled Zhou-Darrington Bodies Cancelled Paulie Cells Cancelled Bite Cells Cancelled Crenated Cell [...] Clarity Clear Urine pH 7.0 Ur Specific Seth 1.010 Urine Protein Negative Urine Glucose (UA) [...] % (Auto) 66.5 Lymph % (Auto) 23.7 Morrison % (Auto) 7.8 Eos % (Auto) 1.5 [...] Target Cells Tear Drop Cells Ovalocytes Stomatocytes Zhou-Darrington Bodies [place] Cells Bite Cells Crenated Cell Acanthocytes (Spur) Rouleaux Schistocytes Sodium Potassium Chloride Carbon Dioxide Anion Gap BUN Creatinine Estim Creat Clear Calc Est GFR (MDRD) Af Amer Est GFR (MDRD) Non-Af BUN/Creatinine Ratio Glucose Calcium Urine Color Urine Clarity Urine pH Ur Specific Seth Urine Protein Urine Glucose (UA) Urine Ketones Urine Occult Blood Urine Nitrite Urine Bilirubin Urine Urobilinogen Ur Leukocyte Esterase Urine RBC Urine WBC Ur Squamous Epith Cells Urine Bacteria Urine Mucus Management Discussion w/another healthcare provider: tray room worker/Case management (Case management was informed there [...] your Primary Care Provider. Call [facility] ([phone]) or report to the closest Emergency Room. Call 911 if necessary. 12/06/22 1433 <Electronically signed by Mookie Guo MD> Cosigner Signature (if applicable): CC: TOOLMAKER GRADE THREEPatricia Andino ~ Signed [facility] Work Phone: 1(232) 402-922407-20-2023 History of Present illness Narrative* Niraj Andino, BOILER OPERATOR HELPER.FIRE HYDRANT OPERATOR - 12/06/2022 11:16 AM EDT Chief Complaint [...] (FLONASE) 50 mcg/actuation nasal spray Use 1 Sabine in each nostril once daily. loratadine 10 [...] to increased hallucinations and behaviors. Niraj Andino APRN.FIRE HYDRANT OPERATOR documented in this encounterClinton [facility] Hospital07-10-2023 History of Present illness Narrative* Felicita Salgado MSW - 11/26/2022 4:36 PM EDT Patient sister asked this Sw if Sw has heard of landlords requesting photo id of all adults in the home when renting. Sister notes that new landlord is asking for photo id for patient. Sister concerned about taking patient to [facility] for photo id. Sw notes that she was not aware of landlords asking forphoto id for tenants. Sister notes that she will speak with [facility] to see if she would be able to bring patient in for photo id. Chiki also notes that she is still waiting to hear back from Judge Bautista in regards to guardianship hearing date. documented in this encounterClinton [facility] Hospital06-23-2023 Miscellaneous Notes* Telephone Encounter - Nina [...] but this may not be ideal for fpc option. I will defer to PCP. * Telephone Encounter - Nnia Velez RN - 11/02/2022 4:36 PM EDT Pts sister/guardian called and is notified of providers message and instructions. She voices understanding. She has been giving her brother Melatonin 10 mg gummies at bedtime but he has episodes where he doesn't sleep. She is wondering about using Benadryl liquid instead. She also was asking about providers opinion on [facility] versus [facility] on providing care for Schizophrenics. Please call and advise. Nina Velez RN * Telephone Encounter - Niraj Andino APRN.JOSHUA - 11/02/2022 2:20 PM EDT Please let [...] you. Nina Velez RN documented in this encounterClinton Memorial Hospital06-23-2023 Miscellaneous Notes* Telephone Encounter - Patricia [...] well. Chiki requesting a call back at [phone] today. Please review and advise, Patricia Chicas RN documented in this encounterClinton Memorial Hospital06-16-2023 Miscellaneous Notes* Telephone Encounter - DUKE Jasso - 11/02/2022 9:00 AM EDT Behavioral Health Social Work Progress Note Patient identified for [facility] from: PCP Reason for referral: Resources Behavioral Health Resources: Psychiatry med management, Psychology - talk therapy [facility] encounter type: Telephone Encounter Attempts to Outreach: 1 attempt Referral made: Psychiatry - Internal, Psychiatry - External, Psychology - Internal, Psychology - External Psychiatry-Internal referral type: Medication Management Psychology-Internal referral type: Therapy Psychology-External referral type: Therapy Psychiatry-External referral type: Medication Management Reason for external referral: Wait times at [facility] too long, Patient choice Final Disposition: [...] Jasso-S November 02, 2022 documented in this encounterClinton [facility] Hospital06-15-2023 History of Present illness Narrative* Niraj Andino, BOILER OPERATOR HELPER.FIRE HYDRANT OPERATOR - 11/01/2022 4:27 PM EDT Chief Complaint No chief complaint on file. HPI Arvind Domínguez is a 47 year old male who presents here today for Above Complaints.. Patient [facility]. Patient has a medical history including mental [...] (FLONASE) 50 mcg/actuation nasal spray Use 1 Sabine in each nostril once daily. loratadine 10 [...] TO PRIMARY CARE BEHAVIORAL HEALTH ADULT - DEICER REPAIRER PNEUMATIC [CONSULT TO SOCIAL WORK] 2. Well adult [...] Z13.6 - LIPID PANEL, NONFASTING Niraj Andino APRN.FIRE HYDRANT OPERATOR documented in this encounterClinton [facility] Hospital06-05-2023 History of Present illness Narrative* Michelle Neely MD - 10/22/2022 11:00 AM EDT Subjective Patient ID: Arvind Domínguez is a 47 y.o. male who presents for Follow-up (Probate paperwork, ). HPI Patient here for follow-up. Accompanied by half-sister Chiki, and Indigo from the [facility]. Patient's mother few weeks ago. Patient needs a statement for guardianship to be taken care of by family and [facility]. schizophrenic disorder patient will require close follow-up. [...] loss, abnormal Other Allergic rhinitis Schizophrenic disorder ([facility]/HCC) - Primary Other Visit Diagnoses Body mass index (BMI) 19.9 or less, adult Assessment/Plan Patient here for follow-up. Accompanied by half-sister Chiki, and Indigo from the [facility]. Patient's mother few weeks ago. Patient needs a statement for guardianship to be taken care of by family in [facility]. schizophrenic disorder patient will require close follow-up. Continue meds as are. Allergic rhinitis stable on therapy Vitamin D deficiency on supplementation GERD and malnutrition. Patient has lost 10 pounds since last visit. Strict attention to nutrition discussed. Yearly labs were not done [facility] with [facility] Phone: [phone]) 208-680703-06-2023 Evaluation + Plan note* Assessment & Plan Note - Michelle Neely MD - 07/23/2022 10:08 AM ESTAssociated Problem(s): Allergic rhinitis Stable on meds [facility] Work Phone: 1(236) 159-233103-06-2023 Miscellaneous Notes* Assessment & Plan Note - [...] disease) Stable on diet [facility] Work Phone: [phone]) 944-353403-06-2023 Evaluation + Plan note* Assessment & Plan Note - Michelle Neely MD - 07/23/2022 10:00 AM ESTAssociated Problem(s): Schizophrenic disorder (CMS/HCC) Stable on med [facility] Work Phone: 1(453) 454-799403-06-2023 Evaluation + Plan note* Assessment & Plan Note - Michelle Neely MD - 07/23/2022 9:59 AM ESTAssociated Problem(s): Vitamin D deficiency Stable on supplement [facility] Work Phone: 1(497) [phone] Evaluation + Plan note* Assessment & Plan Note - Michelle Neely MD - 07/23/2022 9:58 AM ESTAssociated Problem(s): Malnutrition (CMS/HCC) Stable on diet [facility] Work Phone: [phone]) 354-871803-06-2023 Evaluation + Plan note* Assessment & Plan Note - Michelle Neely MD - 07/23/2022 9:58 AM ESTAssociated Problem(s): GERD (gastroesophageal reflux disease) Stable on diet [facility] Work Phone: [phone]) [phone] History of Present illness Narrative* Michelle Neely [...] 5 mg disintegrating tablet [facility] Work Phone: Chief complaint+Reason for visit Narrative* Chief Complaint MENTAL EVALUATION [facility] Work Phone: Chief complaint+Reason for visit Narrative* Chief Complaint MENTAL EVALUATION ABD PAIN [facility] Work Phone: Chief complaint+Reason for visit Narrative* Chief Complaint MENTAL EVALUATION ABD PAIN FEVER [facility] Work Phone: Evaluation note* Diagnosis Schizophrenic disorder (CMS/HCC)- Primary Unspecified schizophrenia, unspecified condition Weight loss, abnormal Non-seasonal allergic rhinitis, unspecified trigger Vitamin D deficiency Gastroesophageal reflux disease without esophagitis Esophageal reflux Body mass index (BMI) 19.9 or less, adult documented in this encounter [facility] Work Phone: Evaluation note* Diagnosis Schizophrenia, unspecified type (HCC)- Primary Well adult exam [Z00.00 (ICD-10-CM)] Routine general medical examination at a health care facility GERD without esophagitis Esophageal reflux Vitamin D deficiency Unspecified vitamin D deficiency Medication management Encounter for long-term (current) use of other medications Screening for diabetes mellitus Encounter for lipid screening for cardiovascular disease Screening for lipoid disorders [facility] Diagnosis GERD without esophagitis- Primary Esophageal reflux documented in this encounter [facility] noteNo assessment information availableWLake [facility] Work Phone: Evaluation note* Diagnosis Schizophrenia, unspecified type (HCC)- Primary [facility]* Diagnosis Abdominal pain, unspecified abdominal location- Primary [facility]* Diagnosis GERD without esophagitis- Primary Esophageal reflux Elevated LFTs Other abnormal blood chemistry documented in this encounter [facility] note* Diagnosis GERD without esophagitis Esophageal reflux [facility]* Diagnosis GERD without esophagitis Esophageal reflux [facility]* Diagnosis GERD without esophagitis Esophageal reflux documented in this encounter [facility]* Diagnosis Moderate protein-calorie malnutrition (HCC)- Primary Malnutrition of moderate degree [facility] this encounter [facility]* Diagnosis Encounter for immunization- Primary Need for other specified prophylactic vaccination against single bacterial disease Chronic insomnia Insomnia, unspecified documented [facility] this encounter [facility]* Diagnosis Picky eater- Primary Feeding difficulties and mismanagement Impacted cerumen of left ear Impacted cerumen 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 [facility] this encounter [facility]* Diagnosis Moderate protein-calorie malnutrition (HCC) Malnutrition of moderate degree [facility] this [facility]* Diagnosis 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 Moderate protein-calorie malnutrition (HCC) Malnutrition of moderate degree Schizophrenia, unspecified type (HCC) GERD without esophagitis Esophageal reflux Paleness Pallor Family history of thyroid disease Family history of other endocrine and metabolic diseases Screening for diabetes mellitus Encounter for lipid screening for cardiovascular disease Screening for lipoid disorders documented in this encounter [facility]* Diagnosis Vitamin D deficiency- Primary Unspecified vitamin D deficiency Hypertriglyceridemia Pure hyperglyceridemia Iron deficiency Iron deficiency anemia, unspecified documented in this encounter [facility]* Diagnosis GERD without esophagitis- Primary Esophageal reflux Medication management Encounter for long-term (current) use of other medications Decreased appetite Anorexia documented in this encounter [facility]* Diagnosis Iron deficiency- Primary Iron deficiency anemia, unspecified documented in this encounter [facility]* Diagnosis Cellulitis of skin- Primary Cellulitis and abscess of unspecified site Schizophreniform disorder (HCC) Schizophreniform disorder, unspecified condition 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 Dysuria [facility]* Diagnosis Acute otitis media, right- Primary Unspecified otitis media [facility]* Diagnosis Acute otitis media, right Unspecified otitis media [facility] Diagnosis Acute otitis media, right- Primary Unspecified otitis media [facility]* Diagnosis Agitation- Primary Other and unspecified special symptom or syndrome, not elsewhere classified Anal inflammation Other specified disorder of rectum and anus Schizophrenia, unspecified type (HCC) 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 Bony prominence Other disorders of bone and cartilage [facility] Diagnosis Bony prominence Other disorders of bone and cartilage [facility]* Diagnosis Decreased appetite Anorexia [facility]* Diagnosis Cough in adult- Primary Sore throat Acute pharyngitis Decreased appetite Anorexia GERD without esophagitis Esophageal reflux Measles, mumps, rubella (MMR) vaccination status unknown Hepatitis vaccination status unknown Unknown varicella vaccination status Nxrwlipcox-xgfkxmhlz-[id number] (DPT) vaccination status unknown [facility] Diagnosis Sore throat- Primary Acute pharyngitis [facility]* Diagnosis Encounter for immunization Need for other specified prophylactic vaccination against single bacterial disease documented in this encounter [facility] note* Diagnosis Encounter for immunization Need for other specified prophylactic vaccination against single bacterial disease documented in this encounter [facility] note* Diagnosis Acute otitis externa of left ear, unspecified type- Primary Impacted cerumen of left ear Impacted cerumen Impaired development of adult documented in this encounter [facility] note* Diagnosis Need for vaccination- Primary Need for prophylactic vaccination and inoculation against unspecified single disease [facility]* Diagnosis Acute cough- Primary Medication management Encounter for long-term (current) use of other medications Vitamin D deficiency Unspecified vitamin D deficiency Acute cough documented in this encounter [facility] note* Diagnosis Acute cough documented in this encounter [facility] note* Diagnosis Seasonal allergies- Primary Allergic rhinitis, cause unspecified documented in this encounter [facility] note* Diagnosis Bacterial conjunctivitis- Primary Other conjunctivitis documented in this encounter [facility] note* Diagnosis Mild protein-calorie malnutrition (CMS/HCC)- Primary Non-seasonal allergic rhinitis, unspecified trigger Gastroesophageal reflux disease without esophagitis Esophageal reflux Schizophrenic disorder (CMS/HCC) Unspecified schizophrenia, unspecified condition Health care maintenance Vitamin D deficiency Screening for colorectal cancer documented in this encounter [facility] Work Phone: Evaluation note* Diagnosis URI, acute- Primary Acute upper respiratory infections of unspecified site documented in this encounter [facility] note* Diagnosis Schizophreniform disorder (HCC)- Primary Schizophreniform disorder, unspecified condition 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 documented in this encounter [facility] note* Diagnosis Acute cough- Primary Acute cough [facility] Diagnosis Acute cough [facility] Diagnosis Post-viral cough syndrome- Primary Cough documented in this encounter [facility] note* Diagnosis Wellness examination- Primary Vitamin D [...] single bacterial disease [facility]* Diagnosis Elevated LFTs- Primary Other abnormal blood chemistry Vitamin D deficiency Unspecified vitamin D deficiency Iron deficiency Iron deficiency anemia, unspecified Hyperlipidemia, mixed Mixed hyperlipidemia [facility]* Diagnosis Conductive hearing loss, unspecified laterality- Primary [facility]* Diagnosis 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 [facility]* Diagnosis Elevated alkaline phosphatase level- Primary Other nonspecific abnormal serum enzyme levels [facility]* Diagnosis Elevated alkaline phosphatase level- Primary Other nonspecific abnormal serum enzyme levels Elevated LFTs Other abnormal blood chemistry [facility]* Diagnosis Asymmetric SNHL (sensorineural hearing loss)- Primary Sensorineural hearing loss, asymmetrical Sensorineural hearing loss (SNHL) of left ear, unspecified hearing status on contralateral side Developmental delay Unspecified delay in development [facility] Diagnosis Hearing loss of left ear, unspecified hearing loss type- Primary documented in this encounter [facility] note* Diagnosis Elevated alkaline phosphatase level Other nonspecific abnormal serum enzyme levels Elevated LFTs Other abnormal blood chemistry [facility]* Diagnosis Hearing aid consultation- Primary Seasonal allergies Allergic rhinitis, cause unspecified [facility]* Diagnosis Otalgia of left ear- Primary Otalgia, unspecified [facility]* Diagnosis Lower abdominal pain- Primary Abdominal pain, other specified site Autism spectrum disorder without accompanying intellectual impairment, requiring support (level 1) ([facility]) [facility] Diagnosis Alternating esotropia- Primary Irregular astigmatism of both eyes Irregular astigmatism Corneal thinning, bilateral Autism ([facility]) Autistic disorder, current or active state [facility] routine follow up / no concerns * mom present H&P * eating better / drinking shakes * GERD stable * occasional constipation * schizophrenia stable on rx no side effects * refuses to see psych * allergic rhinitis stable * mental retardation [employer] Work Phone: History of Present illness Narrative* [...] * allergic rhinitis stable * mental retardation [employer] Work Phone: History of Present illness Narrative* routine follow up / no concerns * mom present H&P * eating better / drinking shakes * GERD stable * occasional constipation * schizophrenia stable on rx no side effects * refuses to see psych * allergic rhinitis stable * mental retardation [employer] Work Phone: Hospital Discharge instructions Additional Instructions [...] day 10 you may resume life is normal.[facility] Work Phone: Hospital Discharge instructionsAdditional Instructions Follow-up with your primary care provider soon as possible. Return with new or worsening symptoms. Your laboratory tests and urinalysis were negative today. His aggressive behavior may be more secondary to a psychiatric or behavioral problem.[facility] Work Phone: Progress note Author Sariah Mcdonald [facility] Note Date/Time February 11, 2025 1:28pm [facility] [address] [place] [address] OFFICE VISIT Date of Service: 02/11/25 MR#: [id number] Acct: [id number] Name: ARVIND DOMÍNGUEZ Rep #: [id number] : 1975 Provider: ANTHONY Matthews Age/Sex: 49/M Location: [facility] Status: Signed Intake Vital Signs 12/09/24 14:18 Height 6 ft 1 in Intake Visit Reasons: ABDOMINAL PAIN LOOSE STOOL Chief Complaint: abd pain Allergies No Known Allergies Allergy (Verified 12/09/24 14:20) Medications ?Medication ?Instructions ?Recorded ?Confirmed ?Type ferrous sulfate 220 mg (44 mg 325.6 mg PO .COMPLEX 02/11/25 History iron)/5 mL oral solution mirtazapine 15 mg disintegrating 15 mg PO DAILY 02/11/25 History tablet esomeprazole magnesium 40 mg 40 mg PO QDAY #30 ea 08/1802/11/25 Rx granules delayed release for susp ascorbic acid (vitamin C) 500 mg 1 g PO DAILY 12/09/24 02/11/25 History chewable tablet (Acerola C) atorvastatin 20 mg/5 mL (4 mg/mL) 20 mg PO DAILY 12/0902/11/25 History oral suspension (AtorvaliQ) calcium citrate 760 mg PO DAILY 12/09/24 History ergocalciferol (vitamin D2) 1,250 1,250 mcg PO QWEEK 0 12/09/24 02/11/25 History mcg (50,000 unit) capsule levocetirizine 2.5 mg/5 mL oral 2.5 mg PO DAILY 02/11/25 History solution (Xyzal) magnesium 250 mg tablet 250 mg PO DAILY 12/09/24 History mecobalamin (vitamin B12) 1,000 1,000 mcg PO DAILY 02/11/25 History mcg chewable tablet olanzapine 15 mg disintegrating 15 mg PO DAILY 5 02/11/25 History tablet pedi nutrition,iron,lact-free 5 1 ea PO DAILY 12/09/24 02/11/25 History gram-180 kcal/36 gram oral powder (Else Toddler Quinlan) PFSH Medical History Rash Low iron Non-smoker Schizophrenia GERD (gastroesophageal reflux disease) Autism Surgical History History of esophagogastroduodenoscopy (EGD) Family History Mother Lung cancer Heart disease Father Lung cancer Social History household members: family Smoking Status: Never smoker HPI [facility] Chief Complaint: abd pain Details: ARVIND DOMÍNGUEZ, is a 49 M who presents to the office today for follow-up. BGI established 04.14.24 with epigastric pain and lack of appetite. Pt is mostlynon-verbal and hx if taken form his sister. Pt on Protonix. Last EGD many years ago. He has constipation alternating with loose stools. EGD 06.18.24; - Normal esophagus. - Erythematous mucosa in the gastric body and antrum. Biopsied. - Erythematous duodenopathy. *H. pylori + treated with PPI, Clarithromycin and amoxicillin OV 4.9.25: Pt continues with intermittent abd pain. He did finish his course of antibiotics but discontinued PPI as his sister did not feel it was helping. He has loose stools frequently and constipation on occasion. His sister also mentions he has had elevated liver enzymes over the past few months. OV 9.25.25 patient having loose stool every other day. He is not having any formed stools. Patient has been pointing to his abdomen and has not been wanting to go to [employer]. Patient's guardian feels like he is having abdominal pain. He has had a loss of appetite but he does have a tooth infection right now. ROS Const Constitutional: No fatigue, fever(s) or weight change ENT ENT: No difficulty swallowing Gastro GI: Positive for abdominal pain, bloating, constipation, diarrhea, heartburn andexcessive flatus; No belching, change in bowel habits, change in stool character, coffee ground emesis, cramping, difficulty swallowing, feeling full early, incontinent of stools, Vomiting blood/hematemesis, Blood in stool, loose stools, Black,tarry stools, nausea/dyspepsia, pain with swallowing, vomiting or other Musc Musculoskeletal: No joint pain Skin Skin: Positive for dry skin and itchy eyes; No yellowing of the eye Psych Psychiatric: No anxiety, No depression and Positive for Compulsive Behavior Endo Endocrine: No fatigue or weight change Aller/Imm Allergy/Immunologic: Positive for itchy eyes Estrada/Lymp Hematologic/Lymphatic: No easy bleeding or easy bruising Exam Const General: cooperative and comfortable Orientation: alert [facility] Head: normal to inspection Ears: hearing grossly normal bilaterally Nose: external nose normal Face and sinus: normal facial exam Eyes General: appearance normal, both eyes and all related structures Neck Neck: normal visual inspection Chest Chest palpation & inspection: normal inspection of the chest Resp Effort & Inspection: normal respiratory effort GI Inspection: normal to inspection Assessment and Plan Assessment and Plan (1) Abdominal pain: Status: Inactive Plan: He also has a 49-year-old male patient with autism who is nonverbal here today for follow-up with his guardian. Patient has been struggling with abdominal pain and loose stool. He is having bowel movements every other day that are loose or soft. Patient has been pointing to his abdomen and has not wanted to go to school. He continues with Nexium. Will order stool testing to rule out infection or inflammation. I have also ordered a KUB to make sure he is not having overflow diarrhea as he typically has constipation. Patient's guardian feels like he may need a colonoscopy however it may be difficult for him to complete a preparation due to his behavioral disorders. We may consider this inthe future if stool testing indicates it is necessary. - Stool testing - KUB - Consider colonoscopy (2) Loose stools: Status: Acute Orders: Orders Abdomen Single View Today R10.9 - Unspecified abdominal pain ENTERIC PATHOGEN PANEL STOOL Today K58.9 - Irritable bowel syndrome, unspecified, R19.5 - Other fecal abnormalities Giardia Lamblia, Stool EIA Today R19.5 - Other fecal abnormalities Stool Lactoferrin/WBC Today K58.9 - Irritable bowel syndrome, unspecified, R19.5 - Other fecal abnormalities Ova and Parasites 8623 Today K58.9 - Irritable bowel syndrome, unspecified, R19.5 - Other fecal abnormalities CDIFF (PCR) Today R19.5 - Other fecal abnormalities Coding Level of Care Code Off vis,est,level 3 Diagnoses Abdominal pain R10.9 Loose stools R19.5 02/11/25 1337 <Electronically signed by Sariah CRUZ> Date _ Sariah CRUZ Cosigner Signature: Date (if applicable) CC: ~ [facility] Work Phone: Reason for referral (narrative)* Diagnostic Procedure Only (Routine) - Closed Specialty Diagnoses / Procedures Referred By Contac t Referred To Contact XR IMAGING Diagnoses Bony prominence Procedures XR SKULL 2V AP/LAT RADIOLOGIC EXAMINATION SKULL 4< VIEWS Niraj Andino APRN.FIRE HYDRANT OPERATOR [address] [place] [address] [place] [address] Referral ID Status Reason Start Date Expiration Date V isits Requested Visits Authorized [id number] Closed Auto-Generate d Referral 12/19/2023 01/17/2025 1 1 [facility] for referral (narrative)* Diagnostic Procedure Only (Routine) - Closed Specialty Diagnoses / Procedures Referred By Contac t Referred To Contact XR IMAGING Diagnoses Bony prominence Procedures XR SKULL 2V AP/LAT RADIOLOGIC EXAMINATION SKULL 4< VIEWS Niraj Andino APRN.CNP [address] [place] [address] [place] [address] Referral ID Status Reason Start Date Expiration Date V isits Requested Visits Authorized [id number] Closed Auto-Generate d Referral 12/19/2023 01/17/2025 1 1 [facility] for referral (narrative)* Diagnostic Procedure Only (Routine) - Closed Specialty Diagnoses / Procedures Referred By Contac t Referred To Contact XR IMAGING Diagnoses Decreased appetite Procedures XR ABDOMEN 1V SUPINE RADIOLOGIC EXAM ABDOMEN 1 VIEW Niraj Andino APRN.CNP [address] [place] [id number] [place] [address] Referral ID Status Reason Start Date Expiration Date V isits Requested Visits Authorized [id number] Closed Auto-Generate d Referral 06/25/2023 07/24/2024 1 1 [facility] for referral (narrative)No reason for referral [facility] Work Phone: Reason for visit Narrative* Diagnostic Procedure Only (Routine) - Closed Specialty Diagnoses / Procedures Referred By Contac t Referred To Contact XR IMAGING Diagnoses Bony prominence Procedures XR SKULL 2V AP/LAT RADIOLOGIC EXAMINATION SKULL 4< VIEWS Niraj Andino APRN.CNP [facility] [place] [address] [place] [address] Referral ID Status Reason Start Date Expiration Date V isits Requested Visits Authorized [id number] Closed Auto-Generate d Referral 12/19/2023 01/17/2025 1 1 [facility] for visit Narrative* Diagnostic Procedure Only (Routine) - Closed Specialty Diagnoses / Procedures Referred By Contac t Referred To Contact XR IMAGING Diagnoses Decreased appetite Procedures XR ABDOMEN 1V SUPINE RADIOLOGIC EXAM ABDOMEN 1 VIEW Niraj Andino APRN.[place] [id number] [place] [phone] [place] [address] Referral ID Status Reason Start Date Expiration Date V isits Requested Visits Authorized [id number] Closed Auto-Generate d Referral 06/25/2023 07/24/2024 1 1 [facility] for visit Narrative* Diagnostic Procedure Only (Routine) - Closed Specialty Diagnoses / Procedures Referred By Contac t Referred To Contact US IMAGING Diagnoses Elevated alkaline phosphatase level Elevated LFTs Procedures US ABD RIGHT UPPER QUADRANT US ABDOMINAL REAL TIME W/IMAGE LIMITED Niraj Andino APRN.[facility] [address] [phone] Phone: tel: fax: [place] [address] Referral ID Status Reason Start Date Expiration Date V isits Requested Visits Authorized [id number] Closed Auto-Generate d Referral 09/17/2024 10/17/2025 1 1 [facility] Family History No Family History Records [...] No December 06, 2022 1:40pm Power of Email Developer No December 06 3 1:40pm Advance Directive Response Recorded Date/ Time Name of Medical Power of Email Developer Chiki December 23, 2022 1:31pm Living Will No December 23, 2022 1:31pm Power of Email Developer Yes December 23 1:31pm Advance Directive Response Recorded Date/ Time Name of Medical Power of Email Developer Chiki December 23, 2022 1:31pm Living Will No January 11 3 2:00pm Power of Email Developer No January 11, 2 023 2:00pm Advance Directive Response Recorded Date/ Time Living Will No January 11 3 2:00pm Power of Email Developer No January 11, 2 023 2:00pm Advance Directive Response Recorded Date/ Time Do you have a Healthcare Power of Email Developer? Yes December 09, 2024 3:59pm Reason for Referral Specialty Diagnoses / Procedures Referred By Rudolph villegas Referred To Contact [facility] Diagnoses Non-verbal learning disorder Procedures CONSULT TO SPEECH THERAPY OFFICE/OUTPATIENT [facility] 60-74 MINUTES Niraj Andino APRN.[facility] [address] [place] [address] [facility] [place] [address] [place] [address] Referral ID Status Reason Start Date Expiration Date Visits Requested Visits Authorized [id number] Pending Review Auto-Generat ed Referral 04/19/2023 04/18/2024 1 1 Specialty Diagnoses / Procedures Referred By Rudolph villegas Referred To Contact Gastroenterology Diagnoses Decreased appetite GERD without esophagitis Procedures CONSULT TO GASTROENTEROLOGY OFFICE/OUTPATIENT [facility] 60 MINUTES Niraj Andino APRN.FIRE HYDRANT OPERATOR [address] [place] [address] Referral ID Status Reason Start Date Expiration Date Visits Requested Visits Authorized [id number] Authorized PCP Requested Referral 02/20/2024 02/19/2025 1 [...] GENERAL ILLNESS December 09, 2024 2:17 pm Chief Complaint Admit Date 2 M FU October 28, 2024 3:32 pm RESPIRATORY PROFILE November 03, 2024 4:38 pm GENERAL ILLNESS December 09, 2024 2:17 pm ABDOMINAL PAIN LOOSE STOOL January 12:59pm Reason for Visit Admit Date Constipation October 28, 2024 3:32 pm H. pylori infection October 28, 2024 3:32 pm Loose stools October 28, 2024 3:32 pm Loose stools February 11, 2025 12:59pm Abdominal pain February 11, 2025 12:59pm Additional Source Comments (unrecognized sect ion and content) No Status Records FoundNo Status Records FoundNo Status Records FoundNo Status Records FoundNo Status Records FoundNo Status Records FoundNo Status Records FoundNo Status Records FoundNo Status Records Found INFORMATION SOURCE (unrecogn ized section and content) DATE CREATED AUTHOR 07/31/2021 [facility] DATE CREATED AUTHOR AUTHOR'S ORGANIZ ATION 04/24/2022 [facility] DATE CREATED AUTHOR AUTHOR'S ORGANIZ ATION 04/24/2022 [facility] DATE CREATED AUTHOR AUTHOR'S ORGANIZ ATION 10/28/2022 [facility] DATE CREATED AUTHOR AUTHOR'S ORGANIZ ATION 10/28/2022 [facility] DATE CREATED AUTHOR AUTHOR'S ORGANIZ ATION 09/30/2024 [facility] DATE CREATED AUTHOR AUTHOR'S ORGANIZ ATION 12/21/2024 [facility] DATE CREATED AUTHOR AUTHOR'S ORGANIZ ATION 02/22/2025 [facility] DATE CREATED AUTHOR AUTHOR'S ORGANIZ ATION 03/01/2025 [facility] Reason for Visit (unrecogniz ed section and content) Reason Comments Follow-up Probate paperwork, Specialty Diagnoses / Procedures Referred By Rudolph villegas Referred To Contact Diagnoses establish care Procedures establish care Self [facility] Dept Referral ID Status Reason Start Date Expiration Date V isits Requested Visits Authorized [id number] Closed Patient Cleared - Qualified 100% FAS 10/16/2022 01/14/2023 99 99 Reason Comments BH consult Reason Comments Reason Comments Medication Problem [...] Date Comments Population Health Navigation Outreach 03/24/2024 [facility] VERONICA PCSA Reason Comments Cough [...] Care Teams (unrecognized sec tion and content) Covered Button Maker Relationship Specialty Start Date End Date Michelle Neely MD [address] [facility], [address] [id number] PCP - General 05/22/99 Michelle Neely MD [address] [facility], [address] [address] PCP - MSSP ACO Attributed Provider 05/20/21 Covered Button Maker Relationship Specialty Start Date End Date Niraj Andino, BOILER OPERATOR HELPER.FIRE HYDRANT OPERATOR [address] [place] [phone] PCP - General Family Medicine 11/01/22 Covered Button Maker Relationship Specialty Start Date End Date Niraj Andino, BOILER OPERATOR HELPER.FIRE HYDRANT OPERATOR [address] [place] [phone] PCP - General Family Medicine 11/01/22 Covered Button Maker Relationship Specialty Start Date End Date Niraj Andino, BOILER OPERATOR HELPER.FIRE HYDRANT OPERATOR [address] [place] [address] [phone] PCP - General Family Medicine 11/01/22 Covered Button Maker Relationship Specialty Start Date End Date Niraj Andino, BOILER OPERATOR HELPER.FIRE HYDRANT OPERATOR [address] [place] [address] [phone] PCP - General Family Medicine 11/01/22 Covered Button Maker Relationship Specialty Start Date End Date Niraj Andino, BOILER OPERATOR HELPER.FIRE HYDRANT OPERATOR [address] [place] [address] [phone] PCP - General Family Medicine 11/01/22 Team Status: Active Member Role Status Dates Dr. Renee Gramajo MD Family Provider Active Niraj Andino TOOLMAKER GRADE THREE-C Primary Care Provider Active Team Status: Inactive Member Role Status Dates Dr. Mookie Guo MD Emergency Provider Active Niraj Andino NP-C Primary Care Provider Active Covered Button Maker Relationship Specialty Start Date End Date Niraj Andino, BOILER OPERATOR HELPER.FIRE HYDRANT OPERATOR [address] [place] [address] [phone] PCP - General Family Medicine 11/01/22 Team Status: Inactive Member Role Status Dates Dr. Mookie Guo MD Attending Provider, Emergency Provi lg Active Niraj Andino TOOLMAKER GRADE THREE-C Primary Care Provider Active Team Status: Inactive Member Role Status Dates Niraj Andino NP-C Primary Care Provider Active Dr. Jordi Russell DO Emergency Provider Active Covered Button Maker Relationship Specialty Start Date End Date Niraj Andino APRN.FIRE HYDRANT OPERATOR [address] [place] [phone] PCP - General Family Medicine 11/01/22 Covered Button Maker Relationship Specialty Start Date End Date Niraj Andino, BOILER OPERATOR HELPER.FIRE HYDRANT OPERATOR [address] [place] [phone] PCP - General Family Medicine 11/01/22 Covered Button Maker Relationship Specialty Start Date End Date Niraj Andino BOILER OPERATOR HELPER.FIRE HYDRANT OPERATOR [address] [place] [phone] PCP - General Family Medicine 11/01/22 Covered Button Maker Relationship Specialty Start Date End Date Niraj Andino BOILER OPERATOR HELPER.FIRE HYDRANT OPERATOR [address] [place] [phone] PCP - General Family Medicine 11/01/22 Covered Button Maker Relationship Specialty Start Date End Date Niraj Andino APRN.FIRE HYDRANT OPERATOR [address] [place] [phone] PCP - General Family Medicine 11/01/22 Team Status: Inactive Member Role Status Dates Niraj Andino TOOLMAKER GRADE THREE-C Primary Care Provider Active Dr. Jordi Russell DO Attending Provider, Emergency Provider Active Team Status: Inactive Member Role Status Dates Niraj Andino TOOLMAKER GRADE THREE-C Primary Care Provider Active Dr. Kong Maddox MD Emergency Provider Active Covered Button Maker Relationship Specialty Start Date End Date Niraj Andino APRN.FIRE HYDRANT OPERATOR [address] [place] [phone] PCP - General Family Medicine 11/01/22 Covered Button Maker Relationship Specialty Start Date End Date Niraj Andino BOILER OPERATOR HELPER.FIRE HYDRANT OPERATOR [address] [place] [phone] PCP - General Family Medicine 11/01/22 Covered Button Maker Relationship Specialty Start Date End Date Niraj Andino APRN.FIRE HYDRANT OPERATOR [address] [place] [phone] PCP - General Family Medicine 11/01/22 Covered Button Maker Relationship Specialty Start Date End Date Niraj Andino BOILER OPERATOR HELPER.FIRE HYDRANT OPERATOR [address] [place] [address] [id number] PCP - General Family Medicine 11/01/22 Covered Button Maker Relationship Specialty Start Date End Date Niraj Andino BOILER OPERATOR HELPER.FIRE HYDRANT OPERATOR [address] [place] [address] [id number] PCP - General Family Medicine 11/01/22 Covered Button Maker Relationship Specialty Start Date End Date Niraj Andino BOILER OPERATOR HELPER.FIRE HYDRANT OPERATOR [address] [place] [address] [phone] PCP - General Family Medicine 11/01/22 Covered Button Maker Relationship Specialty Start Date End Date Niraj Andino, BOILER OPERATOR HELPER.FIRE HYDRANT OPERATOR [address] [place] [address] [id number] PCP - General Family Medicine 11/01/22 Covered Button Maker Relationship Specialty Start Date End Date Niraj Andino, BOILER OPERATOR HELPER.FIRE HYDRANT OPERATOR [address] [place] [address] [id number] PCP - General Family Medicine 11/01/22 Covered Button Maker Relationship Specialty Start Date End Date Niraj Andino BOILER OPERATOR HELPER.FIRE HYDRANT OPERATOR [address] [place] [address] [id number] PCP - General Family Medicine 11/01/22 Covered Button Maker Relationship Specialty Start Date End Date Niraj Andino BOILER OPERATOR HELPER.FIRE HYDRANT OPERATOR [address] [place] [address] [id number] PCP - General Family Medicine 11/01/22 Covered Button Maker Relationship Specialty Start Date End Date Niraj Andino, BOILER OPERATOR HELPER.FIRE HYDRANT OPERATOR [address] [place] [address] [id number] PCP - General Family Medicine 11/01/22 Team Status: Active Member Role Status Dates Niraj Andino , EB Primary Care Prov ider, Attending Provider, Referring Provider Active Covered Button Maker Relationship Specialty Start Date End Date Niraj Andino BOILER OPERATOR HELPER.FIRE HYDRANT OPERATOR [address] [place] [address] [phone] PCP - General Family Medicine 11/01/22 Covered Button Maker Relationship Specialty Start Date End Date Niraj Andino, BOILER OPERATOR HELPER.FIRE HYDRANT OPERATOR [address] [place] [address] 74858 PCP - General Family Medicine 11/01/22 Covered Button Maker Relationship Specialty Start Date End Date Niraj Andino, BOILER OPERATOR HELPER.FIRE HYDRANT OPERATOR [address] [place] [address] [id number] PCP - General Family Medicine 11/01/22 Covered Button Maker Relationship Specialty Start Date End Date Niraj Andino BOILER OPERATOR HELPER.FIRE HYDRANT OPERATOR [address] [place] [address] [id number] PCP - General Family Medicine 11/01/22 Covered Button Maker Relationship Specialty Start Date End Date Niraj Andino BOILER OPERATOR HELPER.FIRE HYDRANT OPERATOR [address] [place] [address] [phone] PCP - General Family Medicine 11/01/22 Covered Button Maker Relationship Specialty Start Date End Date Niraj Andino, BOILER OPERATOR HELPER.FIRE HYDRANT OPERATOR [address] [place] [address] [id number] PCP - General Family Medicine 11/01/22 Covered Button Maker Relationship Specialty Start Date End Date Niraj Andino, BOILER OPERATOR HELPER.FIRE HYDRANT OPERATOR [address] [place] [address] [id number] PCP - General Family Medicine 11/01/22 Covered Button Maker Relationship Specialty Start Date End Date Niraj Andino BOILER OPERATOR HELPER.FIRE HYDRANT OPERATOR [address] [place] [address] [id number] PCP - General Family Medicine 11/01/22 Covered Button Maker Relationship Specialty Start Date End Date Niraj Andino BOILER OPERATOR HELPER.FIRE HYDRANT OPERATOR [address] [place] [address] [id number] PCP - General Family Medicine 11/01/22 Covered Button Maker Relationship Specialty Start Date End Date Niraj Andino, BOILER OPERATOR HELPER.FIRE HYDRANT OPERATOR [address] [place] [address] 33156 PCP - General Family Medicine 11/01/22 Covered Button Maker Relationship Specialty Start Date End Date Niraj Andino, BOILER OPERATOR HELPER.FIRE HYDRANT OPERATOR [address] [place] [address] [phone] PCP - General Family Medicine 11/01/22 Covered Button Maker Relationship Specialty Start Date End Date Michelle Neely MD [address] [place] [address] Physician Offices, [address] [id number] PCP - General 05/22/99 Michelle Neely MD [address] [place] [address] Physician Offices, [address] [place] [address] PCP - MSSP ACO Attributed Provider 05/20/21 Covered Button Maker Relationship Specialty Start Date End Date Niraj Andino APRN.FIRE HYDRANT OPERATOR [address] [place] [address] [phone] PCP - General Family Medicine 11/01/22 Covered Button Maker Relationship Specialty Start Date End Date Niraj Andino APRN.FIRE HYDRANT OPERATOR [address] [place] [address] [phone] PCP - General Family Medicine 11/01/22 Covered Button Maker Relationship Specialty Start Date End Date Niraj Andino APRN.FIRE HYDRANT OPERATOR [address] [place] [address] [id number] PCP - General Family Medicine 11/01/22 Covered Button Maker Relationship Specialty Start Date End Date Niraj Andino APRN-FIRE HYDRANT OPERATOR [address] [place] [address] [address] [place] [address] PCP - General Nurse Practitioner - Family 08/27/24 Covered Button Maker Relationship Specialty Start Date End Date Niraj Andnio APRN.FIRE HYDRANT OPERATOR [address] [place] [address] [phone] PCP - General Family Medicine 11/01/22 Covered Button Maker Relationship Specialty Start Date End Date Niraj Andino APRN.FIRE HYDRANT OPERATOR [address] [place] [address] [phone] PCP - General Family Medicine 11/01/22 Covered Button Maker Relationship Specialty Start Date End Date Niraj Andino APRN.FIRE HYDRANT OPERATOR [address] [place] [address] [phone] PCP - General Family Medicine 11/01/22 Covered Button Maker Relationship Specialty Start Date End Date Niraj Andino APRN.CNP [address] [place] [address] 46885 PCP - General Family Medicine 11/01/22 Covered Button Maker Relationship Specialty Start Date End Date Niraj Andino APRN-JOSHUA [address] [place] [address] [id number] PCP - General Nurse Practitioner - Family 08/27/24 Covered Button Maker Relationship Specialty Start Date End Date Niraj Andino APRN-JOSHUA [address] [place] [address] [id number] PCP - General Nurse Practitioner - Family 08/27/24 Covered Button Maker Relationship Specialty Start Date End Date Niraj Andino APRN.CNP [address] [place] [address] 48427 PCP - General Family Medicine 11/01/22 Covered Button Maker Relationship Specialty Start Date End Date Niraj Andino APRN.CNP [address] [place] [address] 74312 PCP - General Family Medicine 11/01/22 Covered Button Maker Relationship Specialty Start Date End Date Niraj Andino APRN.CNP [address] [place] [address] [phone] PCP - General Family Medicine 11/01/22 Team Status: Active Member Role Status Dates EB Patel Primary Care Provider Active Team Status: Inactive Member Role Status Dates SEBASTIÁN PatelC Primary Care Provider Active Start: July 07, 2024 End: July 07, 2024 Ed Physician Provider Attending Provider Active Start: July 07, 2024 End: July 07, 2024 Ed Physician Provider Emergency Provider Active Start: July 07, 2024 End: July 07, 2024 Team Status: Inactive Member Role Status Dates Niraj Andino TOOLMAKER GRADE THREE-C Primary Care Provider Active Start: August 26, 2024 End: August 26, 2024 Niraj Andino TOOLMAKER GRADE THREE-C Referring Provider Active Start: August 26, 2024 End: August 26, 2024 ANTHONY Matthews Attending Provider Active Start: August 26, 2024 End: August 26, 2024 Team Status: Inactive Member Role Status Dates Niraj Andino TOOLMAKER GRADE THREE-C Primary Care Provider Active Start: October 28, 2024 End: October 28, 2024 Niraj Andino TOOLMAKER GRADE THREE-C Referring Provider Active Start: October 28, 2024 End: October 28, 2024 ANTHONY Matthews Attending Provider Active Start: October 28, 2024 End: October 28, 2024 Team Status: Inactive Member Role Status Dates Niraj Andino TOOLMAKER GRADE THREE-C Primary Care Provider Active Start: November 03, 2024 End: November 03, 2024 ANTHONY Proctor Attending Provider Active Star t: November 03, 2024 End: November 03, 2024 ANTHONY Proctor Referring Provider Active Star t: November 03, 2024 End: November 03, 2024 Team Status: Active Member Role/Relationship Status Dates Niraj Andino TOOLMAKER GRADE THREE-C Primary Care Provider Active Team Status: Inactive Member Role/Relationship Status Dates Niraj Andino TOOLMAKER GRADE THREE-C Primary Care Provider Active Start: August 26, 2024 End: August 26, 2024 Niraj Andino TOOLMAKER GRADE THREE-C Referring Provider Active Start: August 26, 2024 End: August 26, 2024 ANTHONY Matthews Attending Provider Active Start: August 26, 2024 End: August 26, 2024 Team Status: Inactive Member Role/Relationship Status Dates Niraj Andino TOOLMAKER GRADE THREE-C Primary Care Provider Active Start: October 28, 2024 End: October 28, 2024 Niraj Andino TOOLMAKER GRADE THREE-C Referring Provider Active Start: October 28, 2024 [...] December 09, 2024 End: December 09, 2024 Covered Button Maker Relationship Specialty Start Date End Date Niraj Andino APRN.FIRE HYDRANT OPERATOR [address] [place] [address] PCP - General Family Medicine 11/01/22 Covered Button Maker Relationship Specialty Start Date End Date Niraj Anidno APRN.FIRE HYDRANT OPERATOR [address] [place] [address] PCP - General Family Medicine 11/01/22 Team Status: Active Member Role/Relationship Status Dates EB Patel Primary care physician Active Team Status: Inactive Member Role/Relationship Status Dates EB Patel Primary care physician Active Start: October 28, 2024 End: October 28, 2024 EB Patel Referring Provider Active Start: October 28, 2024 End: October 28, 2024 ANTHONY Matthews Attending physician Active Start: October 28, 2024 End: October 28, 2024 Team Status: Inactive Member Role/Relationship Status Dates EB Patel Primary care physician Active Start: November 03, 2024 End: November 03, 2024 ANTHONY Proctor Attending physician Active Sta rt: November 03, 2024 End: November 03, 2024 ANTHONY Proctor Referring Provider Active Star t: November 03, 2024 End: November 03, 2024 Team Status: Inactive Member Role/Relationship Status Dates SEBASTIÁN PatelC Primary care physician Active Start: December 09, 2024 End: December 09, 2024 Marcus Delatorre MD Attending physician Active Sta rt: December 09, 2024 End: December 09, 2024 Marcus Delatorre MD Emergency Department Physician Activ e Start: December 09, 2024 End: December 09, 2024 Team Status: Inactive Member Role/Relationship Status Dates EB Patel Primary care physician Active Start: February 11, 2025 End: February 11, 2025 EB Patel Referring Provider Active Start: February 11, 2025 End: February 11, 2025 ANTHONY Matthews Attending physician Active Start: February 11, 2025 End: February 11, 2025 Team Status: Active Member Role/Relationship Status Dates EB Patel Primary care physician Active Start: February 11, 2025 ANTHONY Matthews Attending physician Active Start: February 11, 2025 ANTHONY Matthews Referring Provider Active Start: February 11, 2025 Team Status: Inactive Member Role/Relationship Status Dates EB Patel Primary care physician Active Start: February 11, 2025 End: February 11, 2025 ANTHONY Matthews Attending physician Active Start: February 11, 2025 End: February 11, 2025 ANTHONY Matthews Referring Provider Active Start: February 11, 2025 End: February 11, 2025 Source Comments (unrecognize d section and content) In the event this informatio n is protected by the Federal Confidentiality of Alcohol and Drug Abuse Patient Records regulations: The Federal rules restrict any use of the information to criminally investigate or prosecute any alcohol or drug abuse patient.[facility] the event this information is protected by the Federal Confidentiality of Alcohol and Drug Abuse Patient Records regulations: The Federal rules restrict any use of the information to criminally investigate or prosecute any alcohol or drug abuse patient.[facility] HospitalIn the event this information is protected by the Federal Confidentiality of Alcohol and Drug Abuse Patient Records regulations: The Federal rules restrict any use of the information to criminally investigate or prosecute any alcohol or drug abuse patient.[facility] HospitalIn the event this information is protected by the Federal Confidentiality of Alcohol and Drug Abuse Patient Records regulations: The Federal rules restrict any use of the information to criminally investigate or prosecute any alcohol or drug abuse patient.[facility] HospitalIn the event this information is protected by the Federal Confidentiality of Alcohol and Drug Abuse Patient Records regulations: The Federal rules restrict any use of the information to criminally investigate or prosecute any alcohol or drug abuse patient.[facility] HospitalIn the event this information is protected by the Federal Confidentiality of Alcohol and Drug Abuse Patient Records regulations: The Federal rules restrict any use of the information to criminally investigate or prosecute any alcohol or drug abuse patient.[facility] HospitalIn the event this information is protected by the Federal Confidentiality of Alcohol and Drug Abuse Patient Records regulations: The Federal rules restrict any use of the information to criminally investigate or prosecute any alcohol or drug abuse patient.[facility] HospitalIn the event this information is protected by the Federal Confidentiality of Alcohol and Drug Abuse Patient Records regulations: The Federal rules restrict any use of the information to criminally investigate or prosecute any alcohol or drug abuse patient.[facility] HospitalIn the event this information is protected by the Federal Confidentiality of Alcohol and Drug Abuse Patient Records regulations: The Federal rules restrict any use of the information to criminally investigate or prosecute any alcohol or drug abuse patient.[facility] HospitalIn the event this information is protected by the Federal Confidentiality of Alcohol and Drug Abuse Patient Records regulations: The Federal rules restrict any use of the information to criminally investigate or prosecute any alcohol or drug abuse patient.[facility] HospitalIn the event this information is protected by the Federal Confidentiality of Alcohol and Drug Abuse Patient Records regulations: The Federal rules restrict any use of the information to criminally investigate or prosecute any alcohol or drug abuse patient.[facility] HospitalIn the event this information is protected by the Federal Confidentiality of Alcohol and Drug Abuse Patient Records regulations: The Federal rules restrict any use of the information to criminally investigate or prosecute any alcohol or drug abuse patient.[facility] HospitalIn the event this information is protected by the Federal Confidentiality of Alcohol and Drug Abuse Patient Records regulations: The Federal rules restrict any use of the information to criminally investigate or prosecute any alcohol or drug abuse patient.[facility] HospitalIn the event this information is protected by the Federal Confidentiality of Alcohol and Drug Abuse Patient Records regulations: The Federal rules restrict any use of the information to criminally investigate or prosecute any alcohol or drug abuse patient.[facility] HospitalIn the event this information is protected by the Federal Confidentiality of Alcohol and Drug Abuse Patient Records regulations: The Federal rules restrict any use of the information to criminally investigate or prosecute any alcohol or drug abuse patient.[facility] HospitalIn the event this information is protected by the Federal Confidentiality of Alcohol and Drug Abuse Patient Records regulations: The Federal rules restrict any use of the information to criminally investigate or prosecute any alcohol or drug abuse patient.[facility] HospitalIn the event this information is protected by the Federal Confidentiality of Alcohol and Drug Abuse Patient Records regulations: The Federal rules restrict any use of the information to criminally investigate or prosecute any alcohol or drug abuse patient.[facility] HospitalIn the event this information is protected by the Federal Confidentiality of Alcohol and Drug Abuse Patient Records regulations: The Federal rules restrict any use of the information to criminally investigate or prosecute any alcohol or drug abuse patient.[facility] HospitalIn the event this information is protected by the Federal Confidentiality of Alcohol and Drug Abuse Patient Records regulations: The Federal rules restrict any use of the information to criminally investigate or prosecute any alcohol or drug abuse patient.[facility] HospitalIn the event this information is protected by the Federal Confidentiality of Alcohol and Drug Abuse Patient Records regulations: The Federal rules restrict any use of the information to criminally investigate or prosecute any alcohol or drug abuse patient.[facility] HospitalIn the event this information is protected by the Federal Confidentiality of Alcohol and Drug Abuse Patient Records regulations: The Federal rules restrict any use of the information to criminally investigate or prosecute any alcohol or drug abuse patient.[facility] HospitalIn the event this information is protected by the Federal Confidentiality of Alcohol and Drug Abuse Patient Records regulations: The Federal rules restrict any use of the information to criminally investigate or prosecute any alcohol or drug abuse patient.[facility] HospitalIn the event this information is protected by the Federal Confidentiality of Alcohol and Drug Abuse Patient Records regulations: The Federal rules restrict any use of the information to criminally investigate or prosecute any alcohol or drug abuse patient.[facility] HospitalIn the event this information is protected by the Federal Confidentiality of Alcohol and Drug Abuse Patient Records regulations: The Federal rules restrict any use of the information to criminally investigate or prosecute any alcohol or drug abuse patient.[facility] HospitalIn the event this information is protected by the Federal Confidentiality of Alcohol and Drug Abuse Patient Records regulations: The Federal rules restrict any use of the information to criminally investigate or prosecute any alcohol or drug abuse patient.[facility] HospitalIn the event this information is protected by the Federal Confidentiality of Alcohol and Drug Abuse Patient Records regulations: The Federal rules restrict any use of the information to criminally investigate or prosecute any alcohol or drug abuse patient.[facility] HospitalIn the event this information is protected by the Federal Confidentiality of Alcohol and Drug Abuse Patient Records regulations: The Federal rules restrict any use of the information to criminally investigate or prosecute any alcohol or drug abuse patient.[facility] HospitalIn the event this information is protected by the Federal Confidentiality of Alcohol and Drug Abuse Patient Records regulations: The Federal rules restrict any use of the information to criminally investigate or prosecute any alcohol or drug abuse patient.[facility] HospitalIn the event this information is protected by the Federal Confidentiality of Alcohol and Drug Abuse Patient Records regulations: The Federal rules restrict any use of the information to criminally investigate or prosecute any alcohol or drug abuse patient.[facility] HospitalIn the event this information is protected by the Federal Confidentiality of Alcohol and Drug Abuse Patient Records regulations: The Federal rules restrict any use of the information to criminally investigate or prosecute any alcohol or drug abuse patient.[facility] HospitalIn the event this information is protected by the Federal Confidentiality of Alcohol and Drug Abuse Patient Records regulations: The Federal rules restrict any use of the information to criminally investigate or prosecute any alcohol or drug abuse patient.[facility] HospitalIn the event this information is protected by the Federal Confidentiality of Alcohol and Drug Abuse Patient Records regulations: The Federal rules restrict any use of the information to criminally investigate or prosecute any alcohol or drug abuse patient.[facility] HospitalIn the event this information is protected by the Federal Confidentiality of Alcohol and Drug Abuse Patient Records regulations: The Federal rules restrict any use of the information to criminally investigate or prosecute any alcohol or drug abuse patient.[facility] HospitalIn the event this information is protected by the Federal Confidentiality of Alcohol and Drug Abuse Patient Records regulations: The Federal rules restrict any use of the information to criminally investigate or prosecute any alcohol or drug abuse patient.[facility] HospitalIn the event this information is protected by the Federal Confidentiality of Alcohol and Drug Abuse Patient Records regulations: The Federal rules restrict any use of the information to criminally investigate or prosecute any alcohol or drug abuse patient.[facility] HospitalIn the event this information is protected by the Federal Confidentiality of Alcohol and Drug Abuse Patient Records regulations: The Federal rules restrict any use of the information to criminally investigate or prosecute any alcohol or drug abuse patient.[facility] HospitalIn the event this information is protected by the Federal Confidentiality of Alcohol and Drug Abuse Patient Records regulations: The Federal rules restrict any use of the information to criminally investigate or prosecute any alcohol or drug abuse patient.[facility] HospitalIn the event this information is protected by the Federal Confidentiality of Alcohol and Drug Abuse Patient Records regulations: The Federal rules restrict any use of the information to criminally investigate or prosecute any alcohol or drug abuse patient.[facility] HospitalIn the event this information is protected by the Federal Confidentiality of Alcohol and Drug Abuse Patient Records regulations: The Federal rules restrict any use of the information to criminally investigate or prosecute any alcohol or drug abuse patient.[facility] HospitalIn the event this information is protected by the Federal Confidentiality of Alcohol and Drug Abuse Patient Records regulations: The Federal rules restrict any use of the information to criminally investigate or prosecute any alcohol or drug abuse patient.[facility] HospitalIn the event this information is protected by the Federal Confidentiality of Alcohol and Drug Abuse Patient Records regulations: The Federal rules restrict any use of the information to criminally investigate or prosecute any alcohol or drug abuse patient.[facility] HospitalIn the event this information is protected by the Federal Confidentiality of Alcohol and Drug Abuse Patient Records regulations: The Federal rules restrict any use of the information to criminally investigate or prosecute any alcohol or drug abuse patient.[facility] HospitalIn the event this information is protected by the Federal Confidentiality of Alcohol and Drug Abuse Patient Records regulations: The Federal rules restrict any use of the information to criminally investigate or prosecute any alcohol or drug abuse patient.[facility] HospitalIn the event this information is protected by the Federal Confidentiality of Alcohol and Drug Abuse Patient Records regulations: The Federal rules restrict any use of the information to criminally investigate or prosecute any alcohol or drug abuse patient.[facility] HospitalIn the event this information is protected by the Federal Confidentiality of Alcohol and Drug Abuse Patient Records regulations: The Federal rules restrict any use of the information to criminally investigate or prosecute any alcohol or drug abuse patient.[facility] HospitalIn the event this information is protected by the Federal Confidentiality of Alcohol and Drug Abuse Patient Records regulations: The Federal rules restrict any use of the information to criminally investigate or prosecute any alcohol or drug abuse patient.[facility] HospitalIn the event this information is protected by the Federal Confidentiality of Alcohol and Drug Abuse Patient Records regulations: The Federal rules restrict any use of the information to criminally investigate or prosecute any alcohol or drug abuse patient.[facility] HospitalIn the event this information is protected by the Federal Confidentiality of Alcohol and Drug Abuse Patient Records regulations: The Federal rules restrict any use of the information to criminally investigate or prosecute any alcohol or drug abuse patient.[facility] HospitalIn the event this information is protected by the Federal Confidentiality of Alcohol and Drug Abuse Patient Records regulations: The Federal rules restrict any use of the information to criminally investigate or prosecute any alcohol or drug abuse patient.[facility] HospitalIn the event this information is protected by the Federal Confidentiality of Alcohol and Drug Abuse Patient Records regulations: The Federal rules restrict any use of the information to criminally investigate or prosecute any alcohol or drug abuse patient.[facility] HospitalIn the event this information is protected by the Federal Confidentiality of Alcohol and Drug Abuse Patient Records regulations: The Federal rules restrict any use of the information to criminally investigate or prosecute any alcohol or drug abuse patient.[facility] HospitalIn the event this information is protected by the Federal Confidentiality of Alcohol and Drug Abuse Patient Records regulations: The Federal rules restrict any use of the information to criminally investigate or prosecute any alcohol or drug abuse patient.[facility] HospitalIn the event this information is protected by the Federal Confidentiality of Alcohol and Drug Abuse Patient Records regulations: The Federal rules restrict any use of the information to criminally investigate or prosecute any alcohol or drug abuse patient.[facility] HospitalIn the event this information is protected by the Federal Confidentiality of Alcohol and Drug Abuse Patient Records regulations: The Federal rules restrict any use of the information to criminally investigate or prosecute any alcohol or drug abuse patient.[facility] HospitalIn the event this information is protected by the Federal Confidentiality of Alcohol and Drug Abuse Patient Records regulations: The Federal rules restrict any use of the information to criminally investigate or prosecute any alcohol or drug abuse patient.[facility] HospitalIn the event this information is protected by the Federal Confidentiality of Alcohol and Drug Abuse Patient Records regulations: The Federal rules restrict any use of the information to criminally investigate or prosecute any alcohol or drug abuse patient.[facility] HospitalIn the event this information is protected by the Federal Confidentiality of Alcohol and Drug Abuse Patient Records regulations: The Federal rules restrict any use of the information to criminally investigate or prosecute any alcohol or drug abuse patient.[facility] HospitalIn the event this information is protected by the Federal Confidentiality of Alcohol and Drug Abuse Patient Records regulations: The Federal rules restrict any use of the information to criminally investigate or prosecute any alcohol or drug abuse patient.[facility] HospitalIn the event this information is protected by the Federal Confidentiality of Alcohol and Drug Abuse Patient Records regulations: The Federal rules restrict any use of the information to criminally investigate or prosecute any alcohol or drug abuse patient.[facility] HospitalIn the event this information is protected by the Federal Confidentiality of Alcohol and Drug Abuse Patient Records regulations: The Federal rules restrict any use of the information to criminally investigate or prosecute any alcohol or drug abuse patient.[facility] HospitalIn the event this information is protected by the Federal Confidentiality of Alcohol and Drug Abuse Patient Records regulations: The Federal rules restrict any use of the information to criminally investigate or prosecute any alcohol or drug abuse patient.[facility] HospitalIn the event this information is protected by the Federal Confidentiality of Alcohol and Drug Abuse Patient Records regulations: The Federal rules restrict any use of the information to criminally investigate or prosecute any alcohol or drug abuse patient.[facility] HospitalIn the event this information is protected by the Federal Confidentiality of Alcohol and Drug Abuse Patient Records regulations: The Federal rules restrict any use of the information to criminally investigate or prosecute any alcohol or drug abuse patient.[facility] HospitalIn the event this information is protected by the Federal Confidentiality of Alcohol and Drug Abuse Patient Records regulations: The Federal rules restrict any use of the information to criminally investigate or prosecute any alcohol or drug abuse patient.[facility] HospitalIn the event this information is protected by the Federal Confidentiality of Alcohol and Drug Abuse Patient Records regulations: The Federal rules restrict any use of the information to criminally investigate or prosecute any alcohol or drug abuse patient.[facility] HospitalIn the event this information is protected by the Federal Confidentiality of Alcohol and Drug Abuse Patient Records regulations: The Federal rules restrict any use of the information to criminally investigate or prosecute any alcohol or drug abuse patient.[facility] HospitalIn the event this information is protected by the Federal Confidentiality of Alcohol and Drug Abuse Patient Records regulations: The Federal rules restrict any use of the information to criminally investigate or prosecute any alcohol or drug abuse patient.[facility] HospitalIn the event this information is protected by the Federal Confidentiality of Alcohol and Drug Abuse Patient Records regulations: The Federal rules restrict any use of the information to criminally investigate or prosecute any alcohol or drug abuse patient.[facility] HospitalIn the event this information is protected by the Federal Confidentiality of Alcohol and Drug Abuse Patient Records regulations: The Federal rules restrict any use of the information to criminally investigate or prosecute any alcohol or drug abuse patient.[facility] HospitalIn the event this information is protected by the Federal Confidentiality of Alcohol and Drug Abuse Patient Records regulations: The Federal rules restrict any use of the information to criminally investigate or prosecute any alcohol or drug abuse patient.[facility] HospitalIn the event this information is protected by the Federal Confidentiality of Alcohol and Drug Abuse Patient Records regulations: The Federal rules restrict any use of the information to criminally investigate or prosecute any alcohol or drug abuse patient.[facility] HospitalIn the event this information is protected by the Federal Confidentiality of Alcohol and Drug Abuse Patient Records regulations: The Federal rules restrict any use of the information to criminally investigate or prosecute any alcohol or drug abuse patient.[facility] HospitalIn the event this information is protected by the Federal Confidentiality of Alcohol and Drug Abuse Patient Records regulations: The Federal rules restrict any use of the information to criminally investigate or prosecute any alcohol or drug abuse patient.[facility] HospitalIn the event this information is protected by the Federal Confidentiality of Alcohol and Drug Abuse Patient Records regulations: The Federal rules restrict any use of the information to criminally investigate or prosecute any alcohol or drug abuse patient.[facility] HospitalIn the event this information is protected by the Federal Confidentiality of Alcohol and Drug Abuse Patient Records regulations: The Federal rules restrict any use of the information to criminally investigate or prosecute any alcohol or drug abuse patient.[facility] HospitalIn the event this information is protected by the Federal Confidentiality of Alcohol and Drug Abuse Patient Records regulations: The Federal rules restrict any use of the information to criminally investigate or prosecute any alcohol or drug abuse patient.[facility] HospitalIn the event this information is protected by the Federal Confidentiality of Alcohol and Drug Abuse Patient Records regulations: The Federal rules restrict any use of the information to criminally investigate or prosecute any alcohol or drug abuse patient.[facility] Goals (unrecognized section and content) Goals [...] BE BASED ON THE PRIMARY CLINICAL RECORDS. [facility]. provides no warranty or guarantee of the accuracy or completeness of information in this document.
[2025-03-13 07:02] LABS: AST(SGOT) 64 U/L (<=37); Alanine Aminotransfer ALT/SGPT 72 U/L (<=46); Albumin, Serum 4.6 g/dL (3.5-5.0); Alkaline Phosphatase 278 U/L (40-129); Anion Gap 12 (5-15); BUN 11 mg/dL (4-19); BUN/Creat Ratio 12.4 RATIO (10-20); Calcium,Total 9.7 mg/dL (7.6-11.0); Carbon Dioxide 24.8 mmol/L (21.0-32.0); Chloride 100 mmol/L (98-108); Estimated Creatinine Clearance 106.91 ml/min (50-250); Globulin 3.6 g/dL (2.2-4.2); Glucose 129 mg/dL (70-99); Lipase 26 U/L (13-75); Potassium 3.8 mmol/L (3.3-5.1)
[2025-03-13 08:30] VITALS: BP 131/86; PULSE 88; RESP 11; O2SAT 98
[2025-03-13 08:31] VITALS: BP 130/90; PULSE 93; RESP 16; TEMP 36.7; O2SAT 97
== END 2025-03-13 08:34 | disposition home or self-care (01) ==
PROVIDERS: Emergency Provider Emergency Medicine; PCP Nurse Practitioner Family; Visit Provider Emergency Medicine
DX: R07.9 Chest pain, unspecified (principal); F20.9 Schizophrenia, unspecified; F84.0 Autistic disorder; R11.2 Nausea with vomiting, unspecified; K21.9 Gastro-esophageal reflux disease without esophagitis; D72.829 Elevated white blood cell count, unspecified; R74.8 Abnormal levels of other serum enzymes
CPT/HCPCS: 71046; 80053; 83690; 85025; 87631; 93005; 96360; 96361; 99285; A4216